=== PATIENT | male | born 1960 | race Caucasian/White ===

== ENCOUNTER → 2017-03-05 | Outpatient (CLI) | payer BC ==
--- NOTE | 2017-03-05 13:30 | KCIC ---
PQRS Compliance Statement: One or more of the following individualized dose reduction techniques were utilized for this examination: 1. Automated exposure control 2. Adjustment of the mA and/or kV according to patient size 3. Use of iterative reconstruction technique Coronary calcium score CT chest without contrast History: 57-year-old male with hypercholesterolemia and family history of heart disease. Distant history of tobacco use. Technique: With retrospective electrocardiogram gating 2.5 mm thick axial reconstructed noncontrast images of the chest at the level of the coronary arteries was performed. Images were post processed on a [employer] workstation and calcium score calculated using the modified Agatston Janowitz protocol. Findings: Total coronary calcium score is 3.2. This is a very low plaque burden and low cardiovascular disease risk. This is based on the calcium score of 0 of the left main coronary artery, 3.2 of the left anterior descending artery, score of 0 of the left circumflex artery and score of 0 of the right coronary artery. Noncoronary findings demonstrate normal caliber great vessels. Cardiac size normal, no pericardial effusion. Visualized upper abdomen is unremarkable. Incompletely imaged in the posterior left upper lobe there is an irregular opacity, more completely seen on the bobbin collector image. Opacity does not appear solid but measures up to 3.7 cm on the bobbin collector image. IMPRESSION: 1. Patient's total calcium score is 3.2. 2. There is an irregular airspace opacity in the posterior left upper lobe that is incompletely imaged. Recommend further evaluation with diagnostic CT of the chest. Electronically signed by: José Carrillo MD (03/05/2017 1:27 PM) [id number]
--- NOTE | 2017-03-05 15:06 | KCIC ---
Right HAND, VIEWS 3 Indication: Hand pain, swelling, redness, warmth over second MCP and distal second metacarpal. Findings: There is no acute fracture or dislocation. There is no bony erosion. Mild joint space narrowing third MCP. Radiocarpal joint space narrowing. Small osteophytes of the second and third metacarpal heads. Marginal osteophytes of the second DIP. There is a dorsal bony excrescence that is well-corticated at the level of the third metacarpal head. Finding measures about 5 mm AP by 19 mm in length. Overlying this there is mild soft tissue swelling. Mineralization is normal. Mild soft tissue swelling of the second finger. IMPRESSION: 1. No acute fracture. 2. Well-corticated bony excrescence dorsal to the third metacarpal head. Mild overlying soft tissue swelling. 3. Mild soft tissue swelling of the second finger. Electronically signed by: José Carrillo MD (03/05/2017 3:02 PM) [id number]
== END | disposition home or self-care (01) ==
LOC: KCIC CT 10:09
PROVIDERS: ATTEND Family Medicine
DX: E78.00 Pure hypercholesterolemia, unspecified (principal); Z82.49 Family history of ischemic heart disease and other diseases of the circulatory system; Z87.891 Personal history of nicotine dependence
CPT/HCPCS: 73130; 75571

== ENCOUNTER 2017-12-01 16:55 | Inpatient (IN) | payer BC ==
[~2017-12-01] VITALS: Ht 185.4 cm; Wt 127.2 kg
[2017-12-01] VITALS (7 sets, daily range): BP systolic 93–123; BP diastolic 46–56
[2017-12-01] MEDS ORDERED: ASPIRIN 325 MG TABLET PO ONE (17:15)
--- NOTE | 2017-12-01 17:23 | PHYS DOC ---
Adult General Chief Complaint Chief Complaint: CHEST PAIN HPI HPI Patient is a 57 year old with a history of hypertension presents to the ED complaining of shortness of breath 1 week. Patient states he felt short of breath over the last week. Patient does not smoke cigarettes. States that he developed chest pain about 2 days ago. Describes it as uncomfortable. Rates the pain as 5 out of 10. States he had a history of a blood clot 6 or 9 years ago. Patient is short of breath with exertion. Denies fever, lower leg swelling, calf pain, abdominal pain, nausea/vomiting, fever, weakness, dizziness or seizure.. Review of Systems Review of Systems Constitutional: Denies fever or chills [] Eyes: Denies change in visual acuity, redness, or eye pain [] HENT: Denies nasal congestion or sore throat [] Respiratory: Complains of shortness of breath. Denies cough. Cardiovascular: No additional information not addressed in HPI [] GI: Denies abdominal pain, nausea, vomiting, bloody stools or diarrhea [] : Denies dysuria or hematuria [] Musculoskeletal: Denies back pain or joint pain [] Integument: Denies rash or skin lesions [] Neurologic: Denies headache, focal weakness or sensory changes [] All other systems were reviewed and found to be within normal limits, except as documented in this note. Current Medications Current Medications Current Medications Medications (Trade) Dose Ordered Sig/Frankie Start Time Stop Time Status Last Admin Dose Admin Albuterol/ Ipratropium (Duoneb) 3 ml 1X ONCE 12/01/17 18:45 12/01/17 18:49 DC Aspirin (Geoffrey Aspirin) 325 mg 1X ONCE 12/01/17 17:15 12/01/17 17:35 DC 12/01/17 18:50 325 MG Info (CONTRAST GIVEN -- Rx MONITORING) 1 each PRN DAILY PRN 12/01/17 17:45 12/03/17 17:44 DC Iohexol (Omnipaque 300 Mg/ml) 75 ml 1X ONCE 12/01/17 17:45 12/01/17 17:46 DC 12/01/17 18:27 75 ML Sodium Chloride 1,000 ml @ 1,000 mls/hr 1X ONCE 12/01/17 18:30 12/01/17 18:49 DC Allergies Allergies Allergies Coded Allergies Type Severity Reaction Last Updated Verified No Known Drug Allergies 12/01/17 No Physical Exam Physical Exam Constitutional: Well developed, well nourished, no acute distress, non-toxic appearance. [] HENT: Normocephalic, atraumatic, oropharynx moist Eyes: PERRLA, EOMI, conjunctiva normal, no discharge. [] Neck: Normal range of motion, no tenderness, supple, no stridor. [] Cardiovascular: Tachycardic. regular rhythm, no murmur [] Lungs & Thorax: Bilateral breath sounds. Abdomen: Bowel sounds normal, soft, no tenderness, no masses, no pulsatile masses. [] Skin: Warm, dry, no erythema, no rash. [] Back: No tenderness, no CVA tenderness. [] Extremities: No tenderness, no cyanosis, no clubbing, ROM intact, no edema. [] Neurologic: Alert and oriented X 3, normal motor function, normal sensory function, no focal deficits noted. [] Psychologic: Affect normal, judgement normal, mood normal. [] Current Patient Data Vital Signs Vital Signs Date Time Temp Pulse Resp B/P (MAP) Pulse Ox O2 Delivery O2 Flow Rate FiO2 12/01/17 18:15 92 20 107/52 (70) 90 12/01/17 17:45 Room Air 12/01/17 16:55 98.0 98.0 Lab Values Laboratory Tests Test 12/01/17 17:50 White Blood Count 12.4 x10^3/uL (4.0-11.0) H Red Blood Count 4.23 x10^6/uL (4.30-5.70) L Hemoglobin 13.0 g/dL (13.0-17.5) Hematocrit 38.0 % (39.0-53.0) L Mean Corpuscular Volume 90 fL (79-100) Mean Corpuscular Hemoglobin 31 pg (25-35) Mean Corpuscular Hemoglobin Concent 34 g/dL (31-37) Red Cell Distribution Width 14.7 % (11.5-14.5) H Platelet Count 286 x10^3/uL (140-400) Neutrophils (%) (Auto) 77 % (31-73) H Lymphocytes (%) (Auto) 10 % (24-48) L Monocytes (%) (Auto) 12 % (0-9) H Eosinophils (%) (Auto) 0 % (0-3) Basophils (%) (Auto) 1 % (0-3) Neutrophils # (Auto) 9.6 x10^3uL (1.8-7.7) H Lymphocytes # (Auto) 1.3 x10^3/uL (1.0-4.8) Monocytes # (Auto) 1.4 x10^3/uL (0.0-1.1) H Eosinophils # (Auto) 0.0 x10^3/uL (0.0-0.7) Basophils # (Auto) 0.1 x10^3/uL (0.0-0.2) Prothrombin Time 15.7 SEC (11.7-14.0) H Prothrombin Time INR 1.3 (0.8-1.1) H Sodium Level 131 mmol/L (136-145) L Potassium Level 4.2 mmol/L (3.5-5.1) Chloride Level 95 mmol/L (98-107) L Carbon Dioxide Level 27 mmol/L (21-32) Anion Gap 9 (6-14) Blood Urea Nitrogen 24 mg/dL (8-26) Creatinine 1.4 mg/dL (0.7-1.3) H Estimated GFR (Cockcroft-Gault) 52.2 BUN/Creatinine Ratio 17 (6-20) Glucose Level 109 mg/dL (70-99) H Calcium Level 8.8 mg/dL (8.5-10.1) Magnesium Level 2.1 mg/dL (1.8-2.4) Total Bilirubin 2.2 mg/dL (0.2-1.0) H Aspartate Amino Transferase (AST) 39 U/L (15-37) H Alanine Aminotransferase (ALT) 53 U/L (16-63) Alkaline Phosphatase 113 U/L (46-116) Creatine Kinase 22 U/L (39-308) L Troponin I Quantitative < 0.017 ng/mL (0.000-0.055) BO-Owf-S-Type Natriuretic Peptide 2728 pg/mL (0-124) H Total Protein 6.7 g/dL (6.4-8.2) Albumin 2.6 g/dL (3.4-5.0) L Albumin/Globulin Ratio 0.6 (1.0-1.7) L Lipase 91 U/L (73-393) Thyroid Stimulating Hormone (TSH) 2.197 uIU/mL (0.358-3.74) Laboratory Tests 12/01/17 17:50 Laboratory Tests 12/01/17 17:50 EKG EKG EKG shows Sinus tachycardia at 105 BPM. No STEMI. [] Radiology/Procedures Radiology/Procedures [] Course & Med Decision Making Course & Med Decision Making Pertinent Labs and Imaging studies reviewed. (See chart for details) Lovenox ordered. Patient has no pain on re-evaluation. Discussed case with Dr. Zhong (garbage person) whom will see patient. []Discussed case with, hospitalist, Dr. champagne. Agrees to admission and further management patient. Patient admitted to the ICU. Patient stable for admission. Dragon Disclaimer Dragon Disclaimer This electronic medical record was generated, in whole or in part, using a voice recognition dictation system. Departure Departure Impression: Primary Impression: Pulmonary embolism Additional Impressions: Pulmonary infarct Cavitary lung disease Disposition: ADMITTED INPATIENT Admitting Physician: Dionna Champagne Condition: STABLE Referrals: NO PCP (PCP) Problem Qualifiers RENATO GRIFFITH Dec 01, 2017 17:23
[2017-12-01] MEDS ORDERED: CONTRAST GIVEN. MC PRN (17:45)
[2017-12-01] MEDS ORDERED: IOHEXOL 300 MG/ML 100ML VIAL. IV ONE (17:45)
[2017-12-01 18:00] LABS: BASO # 0.1 x10^3/uL (0.0-0.2); BASO % 1 % (0-3); EOS % 0 % (0-3); LYMPH # 1.3 x10^3/uL (1.0-4.8); LYMPH % 10 % (24-48); MEAN CORPUSCULAR HEMOGLOBIN 31 pg (25-35); MEAN CORPUSCULAR HGB CONC 34 g/dL (31-37); MEAN CORPUSCULAR VOLUME 90 fL (79-100); MONO # 1.4 x10^3/uL (0.0-1.1); MONO % 12 % (0-9); NEUT # 9.6 x10^3uL (1.8-7.7); NEUT % 77 % (31-73); PLATELET COUNT 286 x10^3/uL (140-400); RED BLOOD COUNT 4.23 x10^6/uL (4.30-5.70); RED CELL DISTRIBUTION WIDTH 14.7 % (11.5-14.5); WHITE BLOOD COUNT 12.4 x10^3/uL (4.0-11.0)
[2017-12-01 18:09] LABS: PROTHROMBIN TIME PATIENT 15.7 SEC (11.7-14.0)
[2017-12-01 18:17] LABS: CALCIUM 8.8 mg/dL (8.5-10.1); CREATININE 1.4 mg/dL (0.7-1.3); GFR 52.2; POTASSIUM 4.2 mmol/L (3.5-5.1)
[2017-12-01 18:20] LABS: ALBUMIN 2.6 g/dL (3.4-5.0); ALBUMIN/GLOBULIN RATIO 0.6 (1.0-1.7); MAGNESIUM 2.1 mg/dL (1.8-2.4); TOTAL BILIRUBIN 2.2 mg/dL (0.2-1.0); TOTAL PROTEIN 6.7 g/dL (6.4-8.2)
--- NOTE | 2017-12-01 18:23 | RAD ---
AP chest. HISTORY: Chest pain short of breath AP view was taken of the chest. There is a left upper lobe infiltrate possibly an acute pneumonia. There is mild pleural thickening on the right. Heart is normal in size without heart failure. There is mild elevation of the right diaphragm. IMPRESSION: 1. Left upper lobe infiltrate possible pneumonia. Follow-up PA and lateral would be of benefit. Electronically signed by: Phil Copeland MD (12/01/2017 6:19 PM) [facility]
[2017-12-01] MEDS ORDERED: IV NORMAL SALINE 1000ML BAG 1,000 ML IV ONE (18:30)
[2017-12-01] MEDS ORDERED: IPRATRPIUM/ALBUTEROL 0.5/2.5MG 3 ML NEBU. NEB ONE (18:45)
--- NOTE | 2017-12-01 18:49 | RAD ---
CT arteriogram of the chest. HISTORY: Chest pain short of breath CT arteriogram was done using 60 mL Omnipaque 300 contrast. Sagittal and coronal MIP images were reconstructed. Thyroid is homogeneous. There is no mediastinal adenopathy. There are large bilateral pulmonary emboli more on the right than on the left, on the right the embolus fills the distal right main pulmonary artery and extending into the upper and lower lobes. On the left there are smaller emboli in both upper and lower lobes. There is a small right pleural effusion. There are infiltrates in the right lower lobe which could be developing infarct or hemorrhage. There is a irregular cavitary lesion in the left lung. At the inferior margin of the cavity is an infiltrate or potentially a mass, pneumonia is possible, lung cancer is possible, atypical infectious diseases such as fungal diseases or TB can have this pattern. There is an old clavicle fracture on the right. A liver lesion is not identified. Adrenal glands and pancreas are normal. IMPRESSION: 1. Bilateral large pulmonary emboli. 2. Small right effusion. 3. Right lower lobe infiltrate possibly developing pulmonary infarct. 4. Cavitary lesion in the left lung with a mass at the inferior margin of the cavity, infectious etiology such as TB or fungal diseases are possible, cancer is possible. The emergency room PA was called and notified of findings at 6:45 PM PQRS Compliance Statement: One or more of the following individualized dose reduction techniques were utilized for this examination: 1. Automated exposure control 2. Adjustment of the mA and/or kV according to patient size 3. Use of iterative reconstruction technique FOR INTERNAL CODING PURPOSES Critical result: RESULT CODE: (C) Electronically signed by: Phil Copeland MD (12/01/2017 6:46 PM) [facility]
[2017-12-01] MEDS ORDERED: ONDANSETRON PF 4 MG/2 ML VIAL. IV PRN (19:00)
[2017-12-01] MEDS ORDERED: fentaNYL PF VIAL 100 MCG/2 ML VIAL IV PRN (19:00)
[2017-12-01] MEDS ORDERED: ACETAMINOPHEN 325 MG TABLET. PO PRN (19:00)
--- NOTE | 2017-12-01 19:19 | EKG ---
[facility] [address] [place] [address] Test Date: 2017-12-01 Test Time: 16:57:18 Pat Name: RASHID MCMAHAN Department: Room: Gender: M Domestic Violence Advocate: DOMITILA : 1960 Requested By: RENATO GRIFFITH Order Number: [id number] Reading MD: Atif López MD Measurements Intervals Petal Rate: 105 P: 49 WY: 156 QRS: -84 QRSD: 120 T: 36 QT: 338 QTc: 451 Interpretive Statements SINUS TACHYCARDIA RBBB LAFB Electronically Signed On 12-10-2017 11:22:21 CDT by Atif López MD
[2017-12-01] MEDS ORDERED: ALLO100T PO (20:25)
[2017-12-01] MEDS ORDERED: AMLO10TA2 PO (20:26)
[2017-12-01] MEDS ORDERED: LISI1TAB5 PO (20:26)
--- NOTE | 2017-12-01 22:27 | PDOC1 ---
History and Physical Date of Admission Date of Admission DATE: 12/01/17 TIME: 22:25 Identification/Chief Complaint Chief Complaint short of breath Source Source: Chart review, Patient History of Present Illness History of Present Illness Mr. Gavin, is a 57 year old admit with days of worsening dyspnea with chest pain, Pain on the right side, and worse if he lays on his right side. pain 5.10 he discussed shortness of breath, alternating sleeping in a chair or on the couch and could not get comfortable for days. was first short of breath one week ago. States that he developed chest pain about 2 days ago. Describes it as uncomfortable Noted history of blood clot 6 years ago. Past Medical History Cardiovascular: HTN Social History Smoke: Quit (12 years ago) ALCOHOL: none Drugs: None Current Problem List Problem List Problems Medical Problems: (1) Cavitary lung disease Status: Acute (2) Pulmonary embolism Status: Acute (3) Pulmonary infarct Status: Acute Current Medications Current Medications Current Medications Aspirin (Geoffrey Aspirin) 325 mg 1X ONCE PO Last administered on 12/01/17at 18:50 ; Start 12/01/17 at 17:15; Stop 12/01/17 at 17:35; Status DC Iohexol (Omnipaque 300 Mg/ml) 75 ml 1X ONCE IV Last administered on 12/01/17at 18:27; Start 12/01/17 at 17:45; Stop 12/01/17 at 17:46; Status DC Info (CONTRAST GIVEN -- Rx MONITORING) 1 each PRN DAILY PRN MC SEE COMMENTS; Start 12/01/17 at 17:45; Stop 12/03/17 at 17:44 Sodium Chloride 1,000 ml @ 1,000 mls/hr 1X ONCE IV ; Start 12/01/17 at 18:30; Stop 12/01/17 at 18:49; Status DC Albuterol/ Ipratropium (Duoneb) 3 ml 1X ONCE NEB ; Start 12/01/17 at 18:45; Stop 12/01/17 at 18:49; Status DC Enoxaparin Sodium (Lovenox 120mg Syringe) 120 mg 1X ONCE SQ Last administered on 12/01/17at 19:19; Start 12/01/17 at 19:00; Stop 12/01/17 at 19:01; Status DC Ondansetron HCl (Zofran) 4 mg PRN Q8HRS PRN IV NAUSEA/VOMITING; Start 12/01/17 at 19:00; Stop 12/02/17 at 18:59 Fentanyl Citrate (Fentanyl 2ml Vial) 50 mcg PRN Q1HR PRN IV PAIN; Start at 19:00; Stop 12/02/17 at 18:59 Acetaminophen (Tylenol) 650 mg PRN Q4HRS PRN PO FEVER; Start 12/01/17 at 19:00 ; Stop 12/02/17 at 18:59 Allopurinol (Zyloprim) 100 mg BID PO ; Start 12/02/17 at 09:00; Status UNV Amlodipine Besylate (Norvasc) 10 mg DAILY PO ; Start 12/02/17 at 09:00; Status UNV Non-Formulary Medication (Lisinopril/ Hydrochlorothiazide (Lisinopril-Hctz 20- 12.5 Mg Tab)) 1 tab DAILY PO ; Start 12/02/17 at 09:00; Status UNV Active Scripts Active Reported Amlodipine Besylate 10 Mg Tablet 10 Mg PO DAILY Lisinopril-Hctz 20-12.5 Mg Tab (Lisinopril/Hydrochlorothiazide) 1 Each Tablet 1 Tab PO DAILY Allopurinol 100 Mg Tablet 100 Mg PO BID Allergies Allergies: Coded Allergies: No Known Drug Allergies (Unverified , 12/01/17) ROS General: YES: Fatigue, Appetite; No: Chills, Night Sweats, Malaise PSYCHOLOGICAL ROS: YES: Sleep disturbances; No: Anxiety, Behavioral Disorder, Concentration difficultie, Decreased libido , Depression, Disorientation, Hallucinations, Hostility, Irritablity, Memory difficulties, Mood Swings, Obsessive thoughts, Physical abuse, Sexual abuse, Suicidal ideation, Other Eyes: No Blurry vision, No Decreased vision, No Double vision, No Dry eyes, No Excessive tearing, No Eye Pain, No Itchy Eyes, No Loss of vision, No Photophobia , No Scotomata, No Uses contacts, No Uses glasses, No Other HEENT: No: Heacaches, Visual Changes, Hearing change, Nasal congestion, Nasal discharge, Oral lesions, Sinus pain, Sore Throat, Epistaxis, Sneezing, Snoring, Tinnitus, Vertigo, Vocal changes, Other Respiratory: YES: Cough, Orthopnea, Shortness of breath, SOB with excertion Cardiovascular: yes Chest Pain Gastrointestinal: No Nausea, No Vomiting, No Abdominal Pain, No Diarrhea, No Constipation, No Melena, No Hematochezia, No Other Genitourinary: No Dysuria, No Frequency, No Incontinence, No Hematuria, No Retention, No Discharge, No Urgency, No Pain, No Flank Pain, No Other, No , No , No , No , No , No , No Musculoskeletal: No Gait Disturbance, No Joint Pain, No Joint Stiffness, No Joint Swelling, No Muscle Pain, No Muscular Weakness, No Pain In:, No Swelling In:, No Other Neurological: No Behavorial Changes, No Bowel/Bladder ControlChng, No Confusion , No Dizziness, No Gait Disturbance, No Headaches, No Impaired Coord/balance, No Memory Loss, No Numbness/Tingling, No Seizures, No Speech Problems, No Tremors, No Visual Changes, No Weakness, No Other Skin: Yes Dry Skin; No Eczema, No Hair Changes, No Lumps, No Mole Changes, No Mottling, No Nail Changes, No Pruritus, No Rash, No Skin Lesion Changes, No Other, No Acne Physical Exam General: Alert, Oriented X3, Cooperative HEENT: Atraumatic, PERRLA Lungs: Clear to auscultation Heart: S1S2, RRR Abdomen: Normal bowel sounds, Soft Extremities: No clubbing, No cyanosis Skin: No rashes, No breakdown Neuro: Normal gait, Normal speech, Strength at 5/5 X4 ext Psych/Mental Status: Mental status NL Vitals Vitals Vital Signs Date Time Temp Pulse Resp B/P (MAP) Pulse Ox O2 Delivery O2 Flow Rate FiO2 12/01/17 22:00 90 18 110/49 (69) 94 Nasal Cannula 2.0 12/01/17 21:15 98.6 98.6 Labs Labs Laboratory Tests Test 12/01/17 17:50 12/01/17 19:00 White Blood Count 12.4 x10^3/uL (4.0-11.0) Red Blood Count 4.23 x10^6/uL (4.30-5.70) Hemoglobin 13.0 g/dL (13.0-17.5) Hematocrit 38.0 % (39.0-53.0) Mean Corpuscular Volume 90 fL (79-100) Mean Corpuscular Hemoglobin 31 pg (25-35) Mean Corpuscular Hemoglobin Concent 34 g/dL (31-37) Red Cell Distribution Width 14.7 % (11.5-14.5) Platelet Count 286 x10^3/uL (140-400) Neutrophils (%) (Auto) 77 % (31-73) Lymphocytes (%) (Auto) 10 % (24-48) Monocytes (%) (Auto) 12 % (0-9) Eosinophils (%) (Auto) 0 % (0-3) Basophils (%) (Auto) 1 % (0-3) Neutrophils # (Auto) 9.6 x10^3uL (1.8-7.7) Lymphocytes # (Auto) 1.3 x10^3/uL (1.0-4.8) Monocytes # (Auto) 1.4 x10^3/uL (0.0-1.1) Eosinophils # (Auto) 0.0 x10^3/uL (0.0-0.7) Basophils # (Auto) 0.1 x10^3/uL (0.0-0.2) Prothrombin Time 15.7 SEC (11.7-14.0) Prothromb Time International Ratio 1.3 (0.8-1.1) Sodium Level 131 mmol/L (136-145) Potassium Level 4.2 mmol/L (3.5-5.1) Chloride Level 95 mmol/L (98-107) Carbon Dioxide Level 27 mmol/L (21-32) Anion Gap 9 (6-14) Blood Urea Nitrogen 24 mg/dL (8-26) Creatinine 1.4 mg/dL (0.7-1.3) Estimated GFR (Cockcroft-Gault) 52.2 BUN/Creatinine Ratio 17 (6-20) Glucose Level 109 mg/dL (70-99) Calcium Level 8.8 mg/dL (8.5-10.1) Magnesium Level 2.1 mg/dL (1.8-2.4) Total Bilirubin 2.2 mg/dL (0.2-1.0) Aspartate Amino Transf (AST/SGOT) 39 U/L (15-37) Alanine Aminotransferase (ALT/SGPT) 53 U/L (16-63) Alkaline Phosphatase 113 U/L (46-116) Creatine Kinase 22 U/L (39-308) Troponin I Quantitative < 0.017 ng/mL (0.000-0.055) FM-Sym-K-Type Natriuretic Peptide 2728 pg/mL (0-124) Total Protein 6.7 g/dL (6.4-8.2) Albumin 2.6 g/dL (3.4-5.0) Albumin/Globulin Ratio 0.6 (1.0-1.7) Lipase 91 U/L (73-393) Thyroid Stimulating Hormone (TSH) 2.197 uIU/mL (0.358-3.74) Lactic Acid Level 1.5 mmol/L (0.4-2.0) Laboratory Tests Test 12/01/17 17:50 12/01/17 19:00 White Blood Count 12.4 x10^3/uL (4.0-11.0) Red Blood Count 4.23 x10^6/uL (4.30-5.70) Hemoglobin 13.0 g/dL (13.0-17.5) Hematocrit 38.0 % (39.0-53.0) Mean Corpuscular Volume 90 fL (79-100) Mean Corpuscular Hemoglobin 31 pg (25-35) Mean Corpuscular Hemoglobin Concent 34 g/dL (31-37) Red Cell Distribution Width 14.7 % (11.5-14.5) Platelet Count 286 x10^3/uL (140-400) Neutrophils (%) (Auto) 77 % (31-73) Lymphocytes (%) (Auto) 10 % (24-48) Monocytes (%) (Auto) 12 % (0-9) Eosinophils (%) (Auto) 0 % (0-3) Basophils (%) (Auto) 1 % (0-3) Neutrophils # (Auto) 9.6 x10^3uL (1.8-7.7) Lymphocytes # (Auto) 1.3 x10^3/uL (1.0-4.8) Monocytes # (Auto) 1.4 x10^3/uL (0.0-1.1) Eosinophils # (Auto) 0.0 x10^3/uL (0.0-0.7) Basophils # (Auto) 0.1 x10^3/uL (0.0-0.2) Prothrombin Time 15.7 SEC (11.7-14.0) Prothromb Time International Ratio 1.3 (0.8-1.1) Sodium Level 131 mmol/L (136-145) Potassium Level 4.2 mmol/L (3.5-5.1) Chloride Level 95 mmol/L (98-107) Carbon Dioxide Level 27 mmol/L (21-32) Anion Gap 9 (6-14) Blood Urea Nitrogen 24 mg/dL (8-26) Creatinine 1.4 mg/dL (0.7-1.3) Estimated GFR (Cockcroft-Gault) 52.2 BUN/Creatinine Ratio 17 (6-20) Glucose Level 109 mg/dL (70-99) Calcium Level 8.8 mg/dL (8.5-10.1) Magnesium Level 2.1 mg/dL (1.8-2.4) Total Bilirubin 2.2 mg/dL (0.2-1.0) Aspartate Amino Transf (AST/SGOT) 39 U/L (15-37) Alanine Aminotransferase (ALT/SGPT) 53 U/L (16-63) Alkaline Phosphatase 113 U/L (46-116) Creatine Kinase 22 U/L (39-308) Troponin I Quantitative < 0.017 ng/mL (0.000-0.055) HS-Pip-K-Type Natriuretic Peptide 2728 pg/mL (0-124) Total Protein 6.7 g/dL (6.4-8.2) Albumin 2.6 g/dL (3.4-5.0) Albumin/Globulin Ratio 0.6 (1.0-1.7) Lipase 91 U/L (73-393) Thyroid Stimulating Hormone (TSH) 2.197 uIU/mL (0.358-3.74) Lactic Acid Level 1.5 mmol/L (0.4-2.0) VTE Prophylaxis Ordered VTE Prophylaxis Devices: Yes VTE Pharmacological Prophylaxi: No Assessment/Plan Assessment/Plan acute hypoxic respiratory failure bilateral large pulmonary embolism Pneumonia, possible cavitary lesion, isolate and r/o TB admit LAURA CHEEK MD Dec 01, 2017 22:27
[2017-12-02] VITALS (23 sets, daily range): BP systolic 84–143; BP diastolic 44–86
[2017-12-02 05:45] LABS: BASO # 0.1 x10^3/uL (0.0-0.2); BASO % 1 % (0-3); EOS % 0 % (0-3); HEMATOCRIT 36.9 % (39.0-53.0); HEMOGLOBIN 12.3 g/dL (13.0-17.5); LYMPH % 8 % (24-48); MEAN CORPUSCULAR HEMOGLOBIN 30 pg (25-35); MEAN CORPUSCULAR HGB CONC 33 g/dL (31-37); MEAN CORPUSCULAR VOLUME 91 fL (79-100); MONO # 1.5 x10^3/uL (0.0-1.1); MONO % 12 % (0-9); NEUT # 9.3 x10^3uL (1.8-7.7); NEUT % 78 % (31-73); PLATELET COUNT 287 x10^3/uL (140-400); RED BLOOD COUNT 4.06 x10^6/uL (4.30-5.70); RED CELL DISTRIBUTION WIDTH 14.2 % (11.5-14.5)
[2017-12-02 05:53] LABS: PROTHROMBIN TIME PATIENT 16.3 SEC (11.7-14.0)
[2017-12-02 06:02] LABS: ALBUMIN 2.5 g/dL (3.4-5.0); ALBUMIN/GLOBULIN RATIO 0.6 (1.0-1.7); CALCIUM 8.6 mg/dL (8.5-10.1); CREATININE 1.3 mg/dL (0.7-1.3); GFR 56.9; POTASSIUM 4.4 mmol/L (3.5-5.1); TOTAL BILIRUBIN 2.5 mg/dL (0.2-1.0); TOTAL PROTEIN 6.8 g/dL (6.4-8.2)
[2017-12-02] MEDS ORDERED: VANCOMYCIN PER PHARMACY MC PRN (06:45)
--- NOTE | 2017-12-02 06:50 | PDOC ---
Provider Note Provider Note [id number] acute resp fail acute pe cavitary lesion prob nico, copd see orders BRIDGETTE URIARTE MD Dec 02, 2017 06:50
--- NOTE | 2017-12-02 07:28 | PDOC ---
Infectious Disease Note Vital Sign Vital Signs Vital Signs Date Time Temp Pulse Resp B/P (MAP) Pulse Ox O2 Delivery O2 Flow Rate FiO2 12/02/17 06:00 82 18 121/58 (79) 95 Nasal Cannula 2.0 12/02/17 04:00 98.5 98.5 Labs Lab Laboratory Tests Test 12/01/17 17:50 12/01/17 19:00 12/02/17 00:45 12/02/17 05:00 White Blood Count 12.4 x10^3/uL (4.0-11.0) 12.0 x10^3/uL (4.0-11.0) Red Blood Count 4.23 x10^6/uL (4.30-5.70) 4.06 x10^6/uL (4.30-5.70) Hemoglobin 13.0 g/dL (13.0-17.5) 12.3 g/dL (13.0-17.5) Hematocrit 38.0 % (39.0-53.0) 36.9 % (39.0-53.0) Mean Corpuscular Volume 90 fL (79-100) 91 fL (79-100) Mean Corpuscular Hemoglobin 31 pg (25-35) 30 pg (25-35) Mean Corpuscular Hemoglobin Concent 34 g/dL (31-37) 33 g/dL (31-37) Red Cell Distribution Width 14.7 % (11.5-14.5) 14.2 % (11.5-14.5) Platelet Count 286 x10^3/uL (140-400) 287 x10^3/uL (140-400) Neutrophils (%) (Auto) 77 % (31-73) 78 % (31-73) Lymphocytes (%) (Auto) 10 % (24-48) 8 % (24-48) Monocytes (%) (Auto) 12 % (0-9) 12 % (0-9) Eosinophils (%) (Auto) 0 % (0-3) 0 % (0-3) Basophils (%) (Auto) 1 % (0-3) 1 % (0-3) Neutrophils # (Auto) 9.6 x10^3uL (1.8-7.7) 9.3 x10^3uL (1.8-7.7) Lymphocytes # (Auto) 1.3 x10^3/uL (1.0-4.8) 1.0 x10^3/uL (1.0-4.8) Monocytes # (Auto) 1.4 x10^3/uL (0.0-1.1) 1.5 x10^3/uL (0.0-1.1) Eosinophils # (Auto) 0.0 x10^3/uL (0.0-0.7) 0.0 x10^3/uL (0.0-0.7) Basophils # (Auto) 0.1 x10^3/uL (0.0-0.2) 0.1 x10^3/uL (0.0-0.2) Prothrombin Time 15.7 SEC (11.7-14.0) 16.3 SEC (11.7-14.0) Prothromb Time International Ratio 1.3 (0.8-1.1) 1.4 (0.8-1.1) Sodium Level 131 mmol/L (136-145) 131 mmol/L (136-145) Potassium Level 4.2 mmol/L (3.5-5.1) 4.4 mmol/L (3.5-5.1) Chloride Level 95 mmol/L (98-107) 97 mmol/L (98-107) Carbon Dioxide Level 27 mmol/L (21-32) 29 mmol/L (21-32) Anion Gap 9 (6-14) 5 (6-14) Blood Urea Nitrogen 24 mg/dL (8-26) 24 mg/dL (8-26) Creatinine 1.4 mg/dL (0.7-1.3) 1.3 mg/dL (0.7-1.3) Estimated GFR (Cockcroft-Gault) 52.2 56.9 BUN/Creatinine Ratio 17 (6-20) 18 (6-20) Glucose Level 109 mg/dL (70-99) 109 mg/dL (70-99) Calcium Level 8.8 mg/dL (8.5-10.1) 8.6 mg/dL (8.5-10.1) Magnesium Level 2.1 mg/dL (1.8-2.4) Total Bilirubin 2.2 mg/dL (0.2-1.0) 2.5 mg/dL (0.2-1.0) Aspartate Amino Transf (AST/SGOT) 39 U/L (15-37) 32 U/L (15-37) Alanine Aminotransferase (ALT/SGPT) 53 U/L (16-63) 54 U/L (16-63) Alkaline Phosphatase 113 U/L (46-116) 112 U/L (46-116) Creatine Kinase 22 U/L (39-308) Troponin I Quantitative < 0.017 ng/mL (0.000-0.055) < 0.017 ng/mL (0.000-0.055) QY-Kzy-K-Type Natriuretic Peptide 2728 pg/mL (0-124) Total Protein 6.7 g/dL (6.4-8.2) 6.8 g/dL (6.4-8.2) Albumin 2.6 g/dL (3.4-5.0) 2.5 g/dL (3.4-5.0) Albumin/Globulin Ratio 0.6 (1.0-1.7) 0.6 (1.0-1.7) Lipase 91 U/L (73-393) Thyroid Stimulating Hormone (TSH) 2.197 uIU/mL (0.358-3.74) Lactic Acid Level 1.5 mmol/L (0.4-2.0) Objective Assessment Dictated Plan Plan of Care Dictated but computer froze before it could be saved # [id number] DAYANA HOFFMAN MD Dec 02, 2017 07:28
[2017-12-02] MEDS: PANTOPRAZOLE 40 MG TABLET.DR. PO SCH (07:29)
[2017-12-02] MEDS: PIPERACILLIN/TAZOBACTAM 3.375 GM in IV NORMAL SALINE 50ML 50 ML IV SCH ×3 (07:31→17:40)
[2017-12-02] MEDS ORDERED: VANCOMYCIN 2 GM in IV NORMAL SALINE 500ML BAG 500 ML IV ONE (08:00)
--- NOTE | 2017-12-02 08:37 | CONS ---
DATE OF CONSULTATION: 12/02/2017 I was asked to see this 57-year-old gentleman for acute respiratory failure, acute pulmonary embolism. HISTORY OF PRESENT ILLNESS: He does have history of [id number] smoking, stopped smoking 14 years ago. He has not been diagnosed with COPD, but has had daily cough. For the past week, he has had increased shortness of breath. He has had chest pain for the past 2-3 days. He presented to the Emergency Room and had a CT angiogram, which did show bilateral pulmonary embolism. He is on oxygen. Lovenox was given, his shortness of breath and chest pain have improved. His blood pressure has been stable. He does have cough slightly worse than before. He denies hemoptysis, night sweats, fever or chills. He has had nasal congestion. He snores and has excessive daytime sleepiness, has not had a sleep study. PAST MEDICAL HISTORY: Hypertension, PVCs. History of left lower extremity DVT 9 years ago, it was non-provoked, he had anticoagulation for 10 months. ALLERGIES: No known drug allergies. MEDICATIONS: The patient was given a dose of Lovenox in the Emergency Room, hydrochlorothiazide, lisinopril, amlodipine. SOCIAL HISTORY: History of [id number] smoking, stopped smoking 14 years ago. He drinks daily. FAMILY HISTORY: There is no history of pulmonary embolism. REVIEW OF SYSTEMS: As mentioned above, other systems otherwise negative.. PHYSICAL EXAMINATION: GENERAL: This is an overweight gentleman. VITAL SIGNS: His O2 saturation on 2 liters of oxygen 95%, respiratory rate 18, heart rate 82, blood pressure 121/58, temperature 98.5. HEENT: Normocephalic, atraumatic. Pupils equal, round, reactive to light. Nose is clear. Throat, there is shallow oropharynx. NECK: There is no thyromegaly or lymphadenopathy. CARDIOVASCULAR: Regular rate and rhythm. PMI is nondisplaced. CHEST: Inspection is normal. LUNGS: There are bibasilar crackles, had dullness at the right base. ABDOMEN: Soft and obese. Bowel sounds are good. EXTREMITIES: There is no edema. LYMPHATICS: There is no lymphadenopathy. NEUROLOGIC: Alert and oriented. SKIN: Warm. LABORATORY DATA: I reviewed the following lab data: CT angiogram did show bilateral pulmonary embolism, small right effusion and right lower lobe infiltrate? infarct, cavitary lesion in left lung with a mass at the inferior margin of the cavitation. WBC 12, hemoglobin 12.3, platelet 287. Sodium 131, potassium 4.4, chloride 97, CO2 29, glucose 109, BUN 24, creatinine 1.3. Troponin less than 0.01. BNP 2728. Lactic acid 1.5. IMPRESSION: 1. Acute hypoxemic respiratory failure secondary to acute pulmonary embolism versus others. 2. Acute pulmonary embolism. 3. Abnormal CT of the chest with a cavitary lesion. Differential diagnosis including malignancy versus inflammatory versus infectious (tuberculosis versus fungal) versus others. 4. Ex-smoker, probable chronic obstructive pulmonary disease. 5. Snoring and excessive daytime sleepiness, probable obstructive sleep apnea-hypopnea syndrome. 6. Hypertension. 7. Hyponatremia. 8. History of left lower extremity deep venous thrombosis, unprovoked. PLAN AND RECOMMENDATIONS: 1. Titrate FiO2 to keep O2 saturation 92%. 2. Continue Lovenox 1 mg/kg subq. 3. Protonix for stress ulcer prophylaxis. 4. Titrate FiO2 to keep O2 saturation 92%. 5. Echocardiogram. 6. Bilateral lower extremity venous Doppler. 7. At some point, he would require a bronchoscopy, but he has acute pulmonary embolism. We need to treat that at this time. 8. Monitor respiratory status very closely. 9. I have discussed obstructive sleep apnea-hypopnea syndrome, the importance of diagnosis; if untreated, increased cardiovascular and [employer] morbidity or mortality. I do recommend a sleep study as an outpatient. 10. ID is consulted. I also recommend QuantiFERON Gold and fungal serology, sputum for AFB smear and culture. Thank you very much for allowing me to participate in care of this very nice gentleman. The findings and recommendations were discussed with RN and the patient. I have answered all of the patient's questions. He understood and agreed to proceed with the plan. BRIDGETTE URIARTE M.D. : TATIANA/caridad JOB#: [id number] / [id number]
[2017-12-02] MEDS: IPRATRPIUM/ALBUTEROL 0.5/2.5MG 3 ML NEBU. NEB SCH ×4 (08:52→19:56)
[2017-12-02] MEDS ORDERED: NON FORMULARY ITEM (Lisinopril/Hydrochlorothiazide (Lisinopril-Hctz 20-12.5 Mg Tab) 1 TAB) PO SCH (09:00)
[2017-12-02] MEDS: hydroCHLOROthiazide 12.5 MG CAPSULE PO SCH (09:13)
[2017-12-02] MEDS: DOXYCYCLINE HYCLATE 100 MG TABLET PO SCH ×2 (09:13→20:54)
[2017-12-02] MEDS: LISINOPRIL 20 MG TABLET PO SCH (09:14)
[2017-12-02] MEDS ORDERED: MORPHINE SULFATE 2 MG/ML VIAL. IV PRN (09:15)
[2017-12-02] MEDS: ALLOPURINOL 100 MG TABLET. PO SCH ×2 (09:15→20:54)
[2017-12-02] MEDS ORDERED: hydrALAZINE 20 MG/ML VIAL. IVP PRN (09:15)
[2017-12-02] MEDS: amLODIPine BESYLATE 10 MG TABLET PO SCH (09:15)
[2017-12-02] MEDS ORDERED: DOCUSATE SODIUM 100 MG CAPSULE. PO PRN (09:15)
[2017-12-02] MEDS ORDERED: ONDANSETRON PF 4 MG/2 ML VIAL. IV PRN (09:15)
[2017-12-02] MEDS ORDERED: ACETAMINOPHEN 325 MG TABLET. PO PRN (09:15)
[2017-12-02] MEDS ORDERED: traMADol 50 MG TABLET PO PRN (09:15)
[2017-12-02] MEDS: ANTI-COAG MONITOR BY PHARMACY. MC PRN ×2 (10:59→11:04)
--- NOTE | 2017-12-02 11:53 | RAD ---
Bilateral lower extremity venous ultrasound, 12/02/2017: History: Pulmonary emboli, old right leg DVT Duplex evaluation of the deep veins in the lower extremities was performed including grayscale, color-flow and spectral Doppler analysis. The right common femoral vein and superficial vein are widely patent. There is mural thickening in the right popliteal vein compatible with nonocclusive thrombus. There is a history of previous DVT in this region and this may be chronic. The visualized right calf veins are unremarkable. On the left, the common femoral and superficial femoral veins are widely patent. There is occlusive thrombus in the left popliteal vein. Nonocclusive thrombus is present in a posterior tibial vein in the left calf. IMPRESSION: Bilateral deep vein thrombi as described above, most prominent in the left popliteal vein where the thrombus is occlusive. Electronically signed by: Peter Pearson MD (12/02/2017 11:49 AM) [facility]
--- NOTE | 2017-12-02 13:01 | PDOC ---
PROGRESS NOTES Chief Complaint Chief Complaint acute hypoxic respiratory failure bilateral large pulmonary embolism BL Leg DVT Pneumonia, possible cavitary lesion, isolate and r/o TB mild malnutrition morbid obesity HTN plan: fu with ID, pulm on lovenox bid check Echo pending will get onco consult cont home meds on zosyn ,vanco possible TB isolation ok to transfer out of icu History of Present Illness History of Present Illness fever 101, on NC 2L some sob Vitals Vitals Vital Signs Date Time Temp Pulse Resp B/P (MAP) Pulse Ox O2 Delivery O2 Flow Rate FiO2 12/02/17 12:30 Nasal Cannula 2.0 12/02/17 12:00 101.1 95 18 127/56 (79) 94 101.1 Physical Exam General: Alert, Oriented X3, Cooperative Heart: Regular rate, Normal S1, Normal S2 Lungs: Crackles (some rt crackles) Abdomen: Normal bowel sounds, Soft Extremities: No clubbing, No cyanosis Skin: No rashes, No breakdown Labs LABS Laboratory Tests Test 12/01/17 17:50 12/01/17 19:00 12/02/17 00:45 12/02/17 05:00 White Blood Count 12.4 x10^3/uL (4.0-11.0) 12.0 x10^3/uL (4.0-11.0) Red Blood Count 4.23 x10^6/uL (4.30-5.70) 4.06 x10^6/uL (4.30-5.70) Hemoglobin 13.0 g/dL (13.0-17.5) 12.3 g/dL (13.0-17.5) Hematocrit 38.0 % (39.0-53.0) 36.9 % (39.0-53.0) Mean Corpuscular Volume 90 fL (79-100) 91 fL (79-100) Mean Corpuscular Hemoglobin 31 pg (25-35) 30 pg (25-35) Mean Corpuscular Hemoglobin Concent 34 g/dL (31-37) 33 g/dL (31-37) Red Cell Distribution Width 14.7 % (11.5-14.5) 14.2 % (11.5-14.5) Platelet Count 286 x10^3/uL (140-400) 287 x10^3/uL (140-400) Neutrophils (%) (Auto) 77 % (31-73) 78 % (31-73) Lymphocytes (%) (Auto) 10 % (24-48) 8 % (24-48) Monocytes (%) (Auto) 12 % (0-9) 12 % (0-9) Eosinophils (%) (Auto) 0 % (0-3) 0 % (0-3) Basophils (%) (Auto) 1 % (0-3) 1 % (0-3) Neutrophils # (Auto) 9.6 x10^3uL (1.8-7.7) 9.3 x10^3uL (1.8-7.7) Lymphocytes # (Auto) 1.3 x10^3/uL (1.0-4.8) 1.0 x10^3/uL (1.0-4.8) Monocytes # (Auto) 1.4 x10^3/uL (0.0-1.1) 1.5 x10^3/uL (0.0-1.1) Eosinophils # (Auto) 0.0 x10^3/uL (0.0-0.7) 0.0 x10^3/uL (0.0-0.7) Basophils # (Auto) 0.1 x10^3/uL (0.0-0.2) 0.1 x10^3/uL (0.0-0.2) Prothrombin Time 15.7 SEC (11.7-14.0) 16.3 SEC (11.7-14.0) Prothromb Time International Ratio 1.3 (0.8-1.1) 1.4 (0.8-1.1) Sodium Level 131 mmol/L (136-145) 131 mmol/L (136-145) Potassium Level 4.2 mmol/L (3.5-5.1) 4.4 mmol/L (3.5-5.1) Chloride Level 95 mmol/L (98-107) 97 mmol/L (98-107) Carbon Dioxide Level 27 mmol/L (21-32) 29 mmol/L (21-32) Anion Gap 9 (6-14) 5 (6-14) Blood Urea Nitrogen 24 mg/dL (8-26) 24 mg/dL (8-26) Creatinine 1.4 mg/dL (0.7-1.3) 1.3 mg/dL (0.7-1.3) Estimated GFR (Cockcroft-Gault) 52.2 56.9 BUN/Creatinine Ratio 17 (6-20) 18 (6-20) Glucose Level 109 mg/dL (70-99) 109 mg/dL (70-99) Calcium Level 8.8 mg/dL (8.5-10.1) 8.6 mg/dL (8.5-10.1) Magnesium Level 2.1 mg/dL (1.8-2.4) Total Bilirubin 2.2 mg/dL (0.2-1.0) 2.5 mg/dL (0.2-1.0) Aspartate Amino Transf (AST/SGOT) 39 U/L (15-37) 32 U/L (15-37) Alanine Aminotransferase (ALT/SGPT) 53 U/L (16-63) 54 U/L (16-63) Alkaline Phosphatase 113 U/L (46-116) 112 U/L (46-116) Creatine Kinase 22 U/L (39-308) Troponin I Quantitative < 0.017 ng/mL (0.000-0.055) < 0.017 ng/mL (0.000-0.055) NB-Wiq-F-Type Natriuretic Peptide 2728 pg/mL (0-124) Total Protein 6.7 g/dL (6.4-8.2) 6.8 g/dL (6.4-8.2) Albumin 2.6 g/dL (3.4-5.0) 2.5 g/dL (3.4-5.0) Albumin/Globulin Ratio 0.6 (1.0-1.7) 0.6 (1.0-1.7) Lipase 91 U/L (73-393) Thyroid Stimulating Hormone (TSH) 2.197 uIU/mL (0.358-3.74) Lactic Acid Level 1.5 mmol/L (0.4-2.0) Assessment and Plan Assessmemt and Plan Problems Medical Problems: (1) Cavitary lung disease Status: Acute (2) Pulmonary embolism Status: Acute (3) Pulmonary infarct Status: Acute Comment Review of Relevant I have reviewed the following items florencio (where applicable) has been applied. Labs Laboratory Tests Test 12/01/17 17:50 12/01/17 19:00 12/02/17 00:45 12/02/17 05:00 White Blood Count 12.4 x10^3/uL (4.0-11.0) 12.0 x10^3/uL (4.0-11.0) Red Blood Count 4.23 x10^6/uL (4.30-5.70) 4.06 x10^6/uL (4.30-5.70) Hemoglobin 13.0 g/dL (13.0-17.5) 12.3 g/dL (13.0-17.5) Hematocrit 38.0 % (39.0-53.0) 36.9 % (39.0-53.0) Mean Corpuscular Volume 90 fL (79-100) 91 fL (79-100) Mean Corpuscular Hemoglobin 31 pg (25-35) 30 pg (25-35) Mean Corpuscular Hemoglobin Concent 34 g/dL (31-37) 33 g/dL (31-37) Red Cell Distribution Width 14.7 % (11.5-14.5) 14.2 % (11.5-14.5) Platelet Count 286 x10^3/uL (140-400) 287 x10^3/uL (140-400) Neutrophils (%) (Auto) 77 % (31-73) 78 % (31-73) Lymphocytes (%) (Auto) 10 % (24-48) 8 % (24-48) Monocytes (%) (Auto) 12 % (0-9) 12 % (0-9) Eosinophils (%) (Auto) 0 % (0-3) 0 % (0-3) Basophils (%) (Auto) 1 % (0-3) 1 % (0-3) Neutrophils # (Auto) 9.6 x10^3uL (1.8-7.7) 9.3 x10^3uL (1.8-7.7) Lymphocytes # (Auto) 1.3 x10^3/uL (1.0-4.8) 1.0 x10^3/uL (1.0-4.8) Monocytes # (Auto) 1.4 x10^3/uL (0.0-1.1) 1.5 x10^3/uL (0.0-1.1) Eosinophils # (Auto) 0.0 x10^3/uL (0.0-0.7) 0.0 x10^3/uL (0.0-0.7) Basophils # (Auto) 0.1 x10^3/uL (0.0-0.2) 0.1 x10^3/uL (0.0-0.2) Prothrombin Time 15.7 SEC (11.7-14.0) 16.3 SEC (11.7-14.0) Prothromb Time International Ratio 1.3 (0.8-1.1) 1.4 (0.8-1.1) Sodium Level 131 mmol/L (136-145) 131 mmol/L (136-145) Potassium Level 4.2 mmol/L (3.5-5.1) 4.4 mmol/L (3.5-5.1) Chloride Level 95 mmol/L (98-107) 97 mmol/L (98-107) Carbon Dioxide Level 27 mmol/L (21-32) 29 mmol/L (21-32) Anion Gap 9 (6-14) 5 (6-14) Blood Urea Nitrogen 24 mg/dL (8-26) 24 mg/dL (8-26) Creatinine 1.4 mg/dL (0.7-1.3) 1.3 mg/dL (0.7-1.3) Estimated GFR (Cockcroft-Gault) 52.2 56.9 BUN/Creatinine Ratio 17 (6-20) 18 (6-20) Glucose Level 109 mg/dL (70-99) 109 mg/dL (70-99) Calcium Level 8.8 mg/dL (8.5-10.1) 8.6 mg/dL (8.5-10.1) Magnesium Level 2.1 mg/dL (1.8-2.4) Total Bilirubin 2.2 mg/dL (0.2-1.0) 2.5 mg/dL (0.2-1.0) Aspartate Amino Transf (AST/SGOT) 39 U/L (15-37) 32 U/L (15-37) Alanine Aminotransferase (ALT/SGPT) 53 U/L (16-63) 54 U/L (16-63) Alkaline Phosphatase 113 U/L (46-116) 112 U/L (46-116) Creatine Kinase 22 U/L (39-308) Troponin I Quantitative < 0.017 ng/mL (0.000-0.055) < 0.017 ng/mL (0.000-0.055) TO-Gtl-N-Type Natriuretic Peptide 2728 pg/mL (0-124) Total Protein 6.7 g/dL (6.4-8.2) 6.8 g/dL (6.4-8.2) Albumin 2.6 g/dL (3.4-5.0) 2.5 g/dL (3.4-5.0) Albumin/Globulin Ratio 0.6 (1.0-1.7) 0.6 (1.0-1.7) Lipase 91 U/L (73-393) Thyroid Stimulating Hormone (TSH) 2.197 uIU/mL (0.358-3.74) Lactic Acid Level 1.5 mmol/L (0.4-2.0) Laboratory Tests Test 12/01/17 17:50 12/01/17 19:00 12/02/17 00:45 12/02/17 05:00 White Blood Count 12.4 x10^3/uL (4.0-11.0) 12.0 x10^3/uL (4.0-11.0) Red Blood Count 4.23 x10^6/uL (4.30-5.70) 4.06 x10^6/uL (4.30-5.70) Hemoglobin 13.0 g/dL (13.0-17.5) 12.3 g/dL (13.0-17.5) Hematocrit 38.0 % (39.0-53.0) 36.9 % (39.0-53.0) Mean Corpuscular Volume 90 fL (79-100) 91 fL (79-100) Mean Corpuscular Hemoglobin 31 pg (25-35) 30 pg (25-35) Mean Corpuscular Hemoglobin Concent 34 g/dL (31-37) 33 g/dL (31-37) Red Cell Distribution Width 14.7 % (11.5-14.5) 14.2 % (11.5-14.5) Platelet Count 286 x10^3/uL (140-400) 287 x10^3/uL (140-400) Neutrophils (%) (Auto) 77 % (31-73) 78 % (31-73) Lymphocytes (%) (Auto) 10 % (24-48) 8 % (24-48) Monocytes (%) (Auto) 12 % (0-9) 12 % (0-9) Eosinophils (%) (Auto) 0 % (0-3) 0 % (0-3) Basophils (%) (Auto) 1 % (0-3) 1 % (0-3) Neutrophils # (Auto) 9.6 x10^3uL (1.8-7.7) 9.3 x10^3uL (1.8-7.7) Lymphocytes # (Auto) 1.3 x10^3/uL (1.0-4.8) 1.0 x10^3/uL (1.0-4.8) Monocytes # (Auto) 1.4 x10^3/uL (0.0-1.1) 1.5 x10^3/uL (0.0-1.1) Eosinophils # (Auto) 0.0 x10^3/uL (0.0-0.7) 0.0 x10^3/uL (0.0-0.7) Basophils # (Auto) 0.1 x10^3/uL (0.0-0.2) 0.1 x10^3/uL (0.0-0.2) Prothrombin Time 15.7 SEC (11.7-14.0) 16.3 SEC (11.7-14.0) Prothromb Time International Ratio 1.3 (0.8-1.1) 1.4 (0.8-1.1) Sodium Level 131 mmol/L (136-145) 131 mmol/L (136-145) Potassium Level 4.2 mmol/L (3.5-5.1) 4.4 mmol/L (3.5-5.1) Chloride Level 95 mmol/L (98-107) 97 mmol/L (98-107) Carbon Dioxide Level 27 mmol/L (21-32) 29 mmol/L (21-32) Anion Gap 9 (6-14) 5 (6-14) Blood Urea Nitrogen 24 mg/dL (8-26) 24 mg/dL (8-26) Creatinine 1.4 mg/dL (0.7-1.3) 1.3 mg/dL (0.7-1.3) Estimated GFR (Cockcroft-Gault) 52.2 56.9 BUN/Creatinine Ratio 17 (6-20) 18 (6-20) Glucose Level 109 mg/dL (70-99) 109 mg/dL (70-99) Calcium Level 8.8 mg/dL (8.5-10.1) 8.6 mg/dL (8.5-10.1) Magnesium Level 2.1 mg/dL (1.8-2.4) Total Bilirubin 2.2 mg/dL (0.2-1.0) 2.5 mg/dL (0.2-1.0) Aspartate Amino Transf (AST/SGOT) 39 U/L (15-37) 32 U/L (15-37) Alanine Aminotransferase (ALT/SGPT) 53 U/L (16-63) 54 U/L (16-63) Alkaline Phosphatase 113 U/L (46-116) 112 U/L (46-116) Creatine Kinase 22 U/L (39-308) Troponin I Quantitative < 0.017 ng/mL (0.000-0.055) < 0.017 ng/mL (0.000-0.055) PG-Ffj-J-Type Natriuretic Peptide 2728 pg/mL (0-124) Total Protein 6.7 g/dL (6.4-8.2) 6.8 g/dL (6.4-8.2) Albumin 2.6 g/dL (3.4-5.0) 2.5 g/dL (3.4-5.0) Albumin/Globulin Ratio 0.6 (1.0-1.7) 0.6 (1.0-1.7) Lipase 91 U/L (73-393) Thyroid Stimulating Hormone (TSH) 2.197 uIU/mL (0.358-3.74) Lactic Acid Level 1.5 mmol/L (0.4-2.0) Medications Current Medications Aspirin (Geoffrey Aspirin) 325 mg 1X ONCE PO Last administered on 12/01/17at 18:50 ; Start 12/01/17 at 17:15; Stop 12/01/17 at 17:35; Status DC Iohexol (Omnipaque 300 Mg/ml) 75 ml 1X ONCE IV Last administered on 12/01/17at 18:27; Start 12/01/17 at 17:45; Stop 12/01/17 at 17:46; Status DC Info (CONTRAST GIVEN -- Rx MONITORING) 1 each PRN DAILY PRN MC SEE COMMENTS; Start 12/01/17 at 17:45; Stop 12/03/17 at 17:44 Sodium Chloride 1,000 ml @ 1,000 mls/hr 1X ONCE IV ; Start 12/01/17 at 18:30; Stop 12/01/17 at 18:49; Status DC Albuterol/ Ipratropium (Duoneb) 3 ml 1X ONCE NEB ; Start 12/01/17 at 18:45; Stop 12/01/17 at 18:49; Status DC Enoxaparin Sodium (Lovenox 120mg Syringe) 120 mg 1X ONCE SQ Last administered on 12/01/17at 19:19; Start 12/01/17 at 19:00; Stop 12/01/17 at 19:01; Status DC Ondansetron HCl (Zofran) 4 mg PRN Q8HRS PRN IV NAUSEA/VOMITING; Start 12/01/17 at 19:00; Stop 12/02/17 at 09:19; Status DC Fentanyl Citrate (Fentanyl 2ml Vial) 50 mcg PRN Q1HR PRN IV PAIN; Start at 19:00; Stop 12/02/17 at 18:59 Acetaminophen (Tylenol) 650 mg PRN Q4HRS PRN PO FEVER; Start 12/01/17 at 19:00 ; Stop 12/02/17 at 09:18; Status DC Allopurinol (Zyloprim) 100 mg BID PO Last administered on 12/02/17at 09:15; Start 12/02/17 at 09:00 Amlodipine Besylate (Norvasc) 10 mg DAILY PO Last administered on 12/02/17at 09: 15; Start 12/02/17 at 09:00 Non-Formulary Medication (Lisinopril/ Hydrochlorothiazide (Lisinopril-Hctz 20- 12.5 Mg Tab)) 1 tab DAILY PO ; Start 12/02/17 at 09:00; Status UNV Lisinopril (Prinivil) 20 mg DAILY PO Last administered on 12/02/17 09:14; Start 12/02/17 at 09:00 Hydrochlorothiazide (Microzide) 12.5 mg DAILY PO Last administered on 09:13; Start 12/02/17 at 09:00 Pantoprazole Sodium (Protonix) 40 mg DAILYAC PO Last administered on 12/02/17 07:29; Start 12/02/17 at 07:30 Enoxaparin Sodium (Lovenox 120mg Syringe) 120 mg Q12H SQ Last administered on 07:30; Start 12/02/17 at 07:00 Albuterol/ Ipratropium (Duoneb) 3 ml RTQID NEB Last administered on 12/02/17 11:52; Start 12/02/17 at 08:00 Vancomycin HCl (Vanco Per Pharmacy) 1 each PRN DAILY PRN MC SEE COMMENTS Last administered on 12/02/17at 10:58; Start 12/02/17 at 06:45 Piperacillin Sod/ Tazobactam Sod 3.375 gm/Sodium Chloride 50 ml @ 100 mls/hr Q6HRS IV Last administered on 12/02/17 12:29; Start 12/02/17 at 07:30 Doxycycline Hyclate (Vibra-Tab) 100 mg BID PO Last administered on 12/02/17 09 :13; Start 12/02/17 at 09:00 Vancomycin HCl 2 gm/Sodium Chloride 500 ml @ 250 mls/hr 1X ONCE IV Last administered on 12/02/17at 09:15; Start 12/02/17 at 08:00; Stop 12/02/17 at 09:59 ; Status DC Acetaminophen (Tylenol) 650 mg PRN Q6HRS PRN PO FEVER; Start 12/02/17 at 09:15 Ondansetron HCl (Zofran) 4 mg PRN Q6HRS PRN IV NAUSEA/VOMITING; Start 12/02/17 at 09:15 Morphine Sulfate (Morphine Sulfate) 2 mg PRN Q2HR PRN IV MODERATE TO SEVERE PAIN; Start 12/02/17 at 09:15 Tramadol HCl (Ultram) 50 mg PRN Q6HRS PRN PO MILD TO MODERATE PAIN; Start 12/02 at 09:15 Hydralazine HCl (Apresoline Inj) 10 mg PRN Q4HRS PRN IVP ELEVATED BP, SEE COMMENTS; Start 12/02/17 at 09:15 Docusate Sodium (Colace) 100 mg PRN DAILY PRN PO CONSTIPATION; Start 12/02/17 at 09:15 Vancomycin HCl 1.75 gm/Sodium Chloride 500 ml @ 250 mls/hr Q12HR IV ; Start 04/09 at 21:00 Vancomycin HCl (Vancomycin Trough Level) 1 each 1X ONCE MC ; Start 12/03/17 at 20:30; Stop 12/03/17 at 20:31 Info (Anti-Coagulation Monitoring By Pharmacy) 1 each PRN DAILY PRN MC SEE COMMENTS Last administered on 12/02/17at 11:04; Start 12/02/17 at 11:00 Active Scripts Active Reported Amlodipine Besylate 10 Mg Tablet 10 Mg PO DAILY Lisinopril-Hctz 20-12.5 Mg Tab (Lisinopril/Hydrochlorothiazide) 1 Each Tablet 1 Tab PO DAILY Allopurinol 100 Mg Tablet 100 Mg PO BID Vitals/I & O Vital Sign - Last 24 Hours 12/01/17 12/01/17 12/01/17 12/01/17 16:55 17:45 18:15 19:00 Temp 98.0 98.0 Pulse 104 92 92 94 Resp 20 20 20 26 B/P (MAP) 125/56 (79) 111/53 (72) 107/52 (70) 128/60 (82) Pulse Ox 95 91 90 91 O2 Delivery Room Air Room Air 12/01/17 12/01/17 12/01/17 12/01/17 19:19 19:45 20:00 21:00 Pulse 89 88 86 Resp 22 24 28 B/P (MAP) 114/53 (73) 127/60 (82) 132/60 (84) Pulse Ox 90 94 95 O2 Delivery Nasal Cannula Nasal Cannula Nasal Cannula O2 Flow Rate 2.0 2.0 2.0 12/01/17 12/01/17 12/01/17 12/01/17 21:15 21:30 21:45 22:00 Temp 98.6 98.6 Pulse 86 82 88 90 Resp 18 18 18 18 B/P (MAP) 113/49 (70) 117/50 (72) 123/54 (77) 110/49 (69) Pulse Ox 94 95 94 94 O2 Delivery Nasal Cannula Nasal Cannula Nasal Cannula Nasal Cannula O2 Flow Rate 2.0 2.0 2.0 2.0 12/01/17 12/01/17 12/01/17 12/01/17 22:30 23:00 23:59 23:59 Temp 99.0 99.0 Pulse 73 74 72 Resp 18 18 18 B/P (MAP) 100/48 (65) 93/46 (62) 101/56 (71) Pulse Ox 94 95 95 O2 Delivery Nasal Cannula Nasal Cannula Nasal Cannula Nasal Cannula O2 Flow Rate 2.0 2.0 2.0 2.0 12/02/17 12/02/17 12/02/17 12/02/17 01:14 02:00 03:00 04:00 Temp 98.5 98.5 Pulse 74 76 84 84 Resp 18 18 18 18 B/P (MAP) 120/59 (79) 107/47 (67) 93/48 (63) 116/58 (77) Pulse Ox 98 95 96 94 O2 Delivery Nasal Cannula Nasal Cannula Nasal Cannula Nasal Cannula O2 Flow Rate 2.0 2.0 2.0 2.0 12/02/17 12/02/17 12/02/17 12/02/17 04:00 05:00 06:00 07:00 Temp 99.0 99.0 Pulse 81 82 85 Resp 18 18 18 B/P (MAP) 140/86 (104) 121/58 (79) 121/58 (79) Pulse Ox 95 95 96 O2 Delivery Nasal Cannula Nasal Cannula Nasal Cannula Nasal Cannula O2 Flow Rate 2.0 2.0 2.0 2.0 12/02/17 12/02/17 12/02/17 12/02/17 07:30 08:00 08:52 09:00 Pulse 90 94 Resp 18 B/P (MAP) 125/53 (77) 116/54 (74) Pulse Ox 96 95 96 O2 Delivery Nasal Cannula Nasal Cannula Nasal Cannula O2 Flow Rate 2.0 2.0 2.5 2.0 12/02/17 12/02/17 12/02/17 12/02/17 09:14 09:15 10:00 11:52 Pulse 94 93 88 Resp 18 B/P (MAP) 118/45 118/45 116/54 (74) Pulse Ox 94 96 O2 Delivery Nasal Cannula O2 Flow Rate 2.0 2.5 12/02/17 12/02/17 12:00 12:30 Temp 101.1 101.1 Pulse 95 Resp 18 B/P (MAP) 127/56 (79) Pulse Ox 94 O2 Delivery Nasal Cannula Nasal Cannula O2 Flow Rate 2.0 2.0 Intake and Output 12/01/17 12/01/17 12/02/17 15:00 23:00 07:00 Output Total 700 ml Balance -700 ml CHLOE CARTER MD Dec 02, 2017 13:01
--- NOTE | 2017-12-02 13:55 | CONS ---
DATE OF CONSULTATION: 12/02/2017 LOCATION: Room ICU 4. REQUESTING PHYSICIAN: Dr. Lares. REASON FOR CONSULTATION: Questionable tuberculosis. 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 By Sunday-, he developed more right-sided chest pain. Denies any fevers or chills or sweats. Denies being around any ill contacts. No sputum production. No weight loss. No hemoptysis, but he did have a dry nagging cough. No dysuria. No cramps or diarrhea. No rashes. He ended up presenting to [facility] Emergency Room last evening, was found to have a white count of 12.4, underwent a chest x-ray, which showed left upper lobe infiltrate, possible pneumonia. He then underwent a CTA of his chest, which showed large bilateral pulmonary emboli, small right pleural effusion, right lower lobe infiltrate, possibly developing pulmonary infarct and a cavitary lesion in the left lung with a mass at the inferior margin of the cavity. Cultures were obtained. He was admitted to the hospital. He has not been placed on any antimicrobials. Currently, he is lying in bed. He is comfortable when he is lying. When he is sitting up or if he lays any further flat, he develops more shortness of air and discomfort. Of note, he did state that he had a tick on him approximately 4 days prior to the shortness of air developing. PAST MEDICAL HISTORY: Positive for hypertension, also has a history of left lower extremity osteomyelitis treated with 6 weeks of antibiotics, but he cannot remember which antibiotic he was taking. He has not had any complications since then. Denies any other surgical complications. REVIEW OF SYSTEMS: Otherwise negative except for what is mentioned above. ALLERGIES: No known drug allergies. 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 Recently, he states he was exposed to a pack a sweaters from [place]. He does consume alcohol, but not much over the past week. He has cats at home and has not traveled outside the country, not traveled much around the country. Denies any TB exposures. Quit smoking several years ago. No hunting or fishing recently. No rodents or birds. FAMILY HISTORY: Positive for diabetes, negative for heart disease, cancers or lymphomas. Again, no TB exposures. CURRENT MEDICATIONS: Include allopurinol, Norvasc, aspirin, Lovenox, hydrochlorothiazide, Prinivil, Protonix. Other meds are available and reviewed in the chart. PHYSICAL EXAMINATION: VITAL SIGNS: He has been afebrile since presentation, currently 98.5; pulse 82; respirations 18; blood pressure 121/58; satting 95% on 2 liters. CONSTITUTIONAL: He is cooperative. He is in no acute distress. He is sitting upright in bed. HEENT: Pupils are equal and reactive. He has normal conjunctivae, no hemorrhages. Oral cavity, pharynx is clear without petechia. NECK: Supple. Good range of motion, no JVD. LUNGS: Decreased in the bases. HEART: S1, S2. No gross murmur. ABDOMEN: Obese, soft, nontender, nondistended, positive bowel sounds. EXTREMITIES: No clubbing, cyanosis, and no gross edema. SKIN: Warm to touch without signs of generalized rash. Previous tick bite site in the right chest area without signs of any complications or scabbing in the area. NEUROLOGIC: Nonfocal and appropriate. PSYCHIATRIC: Affect is pleasant. LABORATORY DATA: White count 12, hemoglobin 12.3, platelets of 287, neutrophils 78, lymphs 8. Glucose 109, AST 32, ALT 54, alkaline phosphatase 112, total bilirubin of 2.5. Lipase was 91. TSH was normal. Radiology reviewed in history of present illness. IMPRESSION: 1. Leukocytosis. 2. Bilateral pulmonary emboli. 3. Tick bite 4 days prior to shortness of air. 4. Cavitary lesion. 5. History of left lower extremity osteomyelitis treated 6 weeks ago. Records are unavailable. He cannot remember which antibiotic he was taking or the pathogen. RECOMMENDATIONS: This is unlikely tuberculosis, but for now, we will dose vancomycin, Zosyn, doxycycline. Follow up labs and cultures. An echo has been ordered. He will await pulmonary evaluation, may need bronchoscopy. Additional evaluation based on the above may be warranted. Dr. Lares, thank you for asking us to participate in this patient's care. Should have any further questions, please do not hesitate to contact me. DAYANA HOFFMAN MD DR: Del JOB#: [id number] / [id number]
--- NOTE | 2017-12-02 13:56 | CARD ---
MR#: [id number] Date of Study: 12/02/2017 Ordering Physician: BRIDGETTE URIARTE, Referring Physician: LAURA CHEEK Tech: Samira Corbin RDCS APPROVED REPORT EXAM: Two-dimensional and M-mode echocardiogram with Doppler and color Doppler. Other Information Quality : Good INDICATION [facility] 2D DIMENSIONS RVDd3.5 (2.9-3.5cm)Left Atrium(2D)3.7 (1.6-4.0cm) IVSd1.1 (0.7-1.1cm)Aortic Root(2D)2.7 (2.0-3.7cm) LVDd4.2 (3.9-5.9cm)LVOT Diameter2.1 (1.8-2.4cm) PWd1.1 (0.7-1.1cm)LVDs2.1 (2.5-4.0cm) FS (%) 30.0 %SV63.3 ml LVEF(%)60.0 (>50%) Aortic Valve AoV Peak Jaycob.130.4cm/sAoV VTI19.7cm AO Peak GR.6.8mmHgLVOT VTI 16.28cm AO Mean GR.4mmHgAVA (VTI)2.95cm2 Mitral Valve MV E Dgatcxyh14.0cm/sMV DECEL [id number] MV A Rbztahvc37.3cm/sE/A Ratio1.3 TDI Lateral E' P. V10.30cm/sMedial E' P. V6.63cm/s E/Lateral E'9.3E/Medial E'14.5 Tricuspid Valve TR P. Xjxzxmps556ux/sRAP LOZZSSHP6fsNv TR Peak Gr.23anGpSYAN36vrKl Pulmonary Vein S1 Mpyoigan07.1cm/sS2 Qfzpbaqt16.46cm/s D2 Bkcycfkw82.5cm/s LEFT VENTRICLE The left ventricle is normal size. There is normal left ventricular wall thickness. The left ventricu lar systolic function is normal and the ejection fraction is within normal range. The Ejection Fracti on is 55-60%. There is a flattened septum consistent with right ventricle pressure overload. RIGHT VENTRICLE The right ventricle is mildly dilated. Systolic function is mildly reduced. ATRIA The left atrium size is normal. The right atrium is mildly dilated. The interatrial septum is intact with no evidence for an atrial septal defect or patent foramen ovale as noted on 2-D or Doppler imagi ng. AORTIC VALVE The aortic valve is normal in structure and function. Doppler and Color Flow revealed no significant aortic regurgitation. There is no significant aortic valvular stenosis. MITRAL VALVE The mitral valve is calcified but opens well. A mild mitral valve prolapse is present. There is no mi tral valve stenosis. Doppler and Color-flow revealed mild mitral regurgitation. TRICUSPID VALVE The tricuspid valve is normal in structure and function. Doppler and Color Flow revealed mild tricusp id regurgitation. There is moderate pulmonary hypertension. The PA pressure was estimated at 47 mmHg. There is no tricuspid valve stenosis. PULMONIC VALVE The pulmonic valve is not well visualized. Doppler and Color Flow revealed no pulmonic valvular regur gitation. There is no pulmonic valvular stenosis. GREAT VESSELS The aortic root is normal in size. The ascending aorta is normal in size. The IVC is normal in size a nd collapses >50% with inspiration. PERICARDIAL EFFUSION There is no evidence of significant pericardial effusion. Critical Notification Critical Value: No <Conclusion> The left ventricle is normal size. The left ventricular systolic function is normal and the ejection fraction is within normal range. The Ejection Fraction is 55-60%. The right ventricle is mildly dilated. Systolic function is mildly reduced. The right atrium is mildly dilated. There is no significant aortic valvular stenosis. Doppler and Color Flow revealed no significant aortic regurgitation. Doppler and Color-flow revealed mild mitral regurgitation. Doppler and Color Flow revealed mild tricuspid regurgitation. There is moderate pulmonary hypertension. The PA pressure was estimated at 47 mmHg. Signed by : Juanpablo Ruiz MD Electronically Approved : 12/02/2017 13:54:51
[2017-12-02] MEDS: HYDROcodone/APAP 5/325MG 1 TAB TABLET PO PRN (19:44)
[2017-12-02] MEDS ORDERED: VANCOMYCIN 1.75 GM in IV NORMAL SALINE 500ML BAG 500 ML IV SCH (21:00)
[2017-12-02] MEDS ORDERED: IV NORMAL SALINE 1000ML BAG 1,000 ML IV ONE (22:30)
[2017-12-03] VITALS (14 sets, daily range): BP systolic 87–140; BP diastolic 47–64
[2017-12-03 04:46] LABS: BASO # 0.1 x10^3/uL (0.0-0.2); BASO % 1 % (0-3); EOS % 0 % (0-3); HEMATOCRIT 32.1 % (39.0-53.0); HEMOGLOBIN 10.8 g/dL (13.0-17.5); LYMPH # 0.8 x10^3/uL (1.0-4.8); LYMPH % 9 % (24-48); MEAN CORPUSCULAR HEMOGLOBIN 31 pg (25-35); MEAN CORPUSCULAR HGB CONC 34 g/dL (31-37); MEAN CORPUSCULAR VOLUME 91 fL (79-100); MONO # 1.2 x10^3/uL (0.0-1.1); MONO % 13 % (0-9); NEUT # 7.2 x10^3uL (1.8-7.7); NEUT % 77 % (31-73); PLATELET COUNT 289 x10^3/uL (140-400); RED BLOOD COUNT 3.51 x10^6/uL (4.30-5.70); RED CELL DISTRIBUTION WIDTH 14.3 % (11.5-14.5); WHITE BLOOD COUNT 9.3 x10^3/uL (4.0-11.0)
[2017-12-03] MEDS: PIPERACILLIN/TAZOBACTAM 3.375 GM in IV NORMAL SALINE 50ML 50 ML IV SCH ×6 (05:17→23:28)
[2017-12-03] MEDS: HYDROcodone/APAP 5/325MG 1 TAB TABLET PO PRN ×2 (05:28→17:46)
[2017-12-03 05:29] LABS: CALCIUM 7.3 mg/dL (8.5-10.1); CREATININE 1.5 mg/dL (0.7-1.3); GFR 48.2; POTASSIUM 3.9 mmol/L (3.5-5.1)
--- NOTE | 2017-12-03 07:50 | PDOC ---
Infectious Disease Note Subjective Subjective pt is feeling ok, has chest pain with cough or deep breath on rt side ROS ROS no n/v/d/fever, wt loss does have some sob Vital Sign Vital Signs Vital Signs Date Time Temp Pulse Resp B/P (MAP) Pulse Ox O2 Delivery O2 Flow Rate FiO2 12/03/17 06:28 14 97 Nasal Cannula 2.0 12/03/17 06:00 74 121/64 (83) 12/03/17 04:00 98.8 98.8 Physical Exam PHYSICAL EXAM CONSTITUTIONAL: He is cooperative. He is in no acute distress. HEENT: Pupils are equal and reactive. He has normal conjunctivae, no hemorrhages. Oral cavity, pharynx is clear without petechia. NECK: Supple. Good range of motion, no JVD. LUNGS: Decreased in the bases. HEART: S1, S2. No gross murmur. ABDOMEN: Obese, soft, nontender, nondistended, positive bowel sounds. EXTREMITIES: No clubbing, cyanosis, and no gross edema. SKIN: Warm to touch without signs of generalized rash. NEUROLOGIC: Nonfocal and appropriate. PSYCHIATRIC: Affect is pleasant. Labs Lab Laboratory Tests Test 12/03/17 04:30 White Blood Count 9.3 x10^3/uL (4.0-11.0) Red Blood Count 3.51 x10^6/uL (4.30-5.70) Hemoglobin 10.8 g/dL (13.0-17.5) Hematocrit 32.1 % (39.0-53.0) Mean Corpuscular Volume 91 fL (79-100) Mean Corpuscular Hemoglobin 31 pg (25-35) Mean Corpuscular Hemoglobin Concent 34 g/dL (31-37) Red Cell Distribution Width 14.3 % (11.5-14.5) Platelet Count 289 x10^3/uL (140-400) Neutrophils (%) (Auto) 77 % (31-73) Lymphocytes (%) (Auto) 9 % (24-48) Monocytes (%) (Auto) 13 % (0-9) Eosinophils (%) (Auto) 0 % (0-3) Basophils (%) (Auto) 1 % (0-3) Neutrophils # (Auto) 7.2 x10^3uL (1.8-7.7) Lymphocytes # (Auto) 0.8 x10^3/uL (1.0-4.8) Monocytes # (Auto) 1.2 x10^3/uL (0.0-1.1) Eosinophils # (Auto) 0.0 x10^3/uL (0.0-0.7) Basophils # (Auto) 0.1 x10^3/uL (0.0-0.2) Sodium Level 130 mmol/L (136-145) Potassium Level 3.9 mmol/L (3.5-5.1) Chloride Level 97 mmol/L (98-107) Carbon Dioxide Level 26 mmol/L (21-32) Anion Gap 7 (6-14) Blood Urea Nitrogen 24 mg/dL (8-26) Creatinine 1.5 mg/dL (0.7-1.3) Estimated GFR (Cockcroft-Gault) 48.2 Glucose Level 107 mg/dL (70-99) Calcium Level 7.3 mg/dL (8.5-10.1) Micro Microbiology 12/01/17 Blood Culture - Preliminary, Resulted NO GROWTH AFTER 1 DAY Objective Assessment 1. Leukocytosis. 2. Bilateral pulmonary emboli. 3. Tick bite 4 days prior to shortness of air. 4. Cavitary lesion. with mass on left side 5. DVT Plan Plan of Care cont doxy and zosyn d/c vanc may need bronch and biopsy, doubt TB, likely has malignancy d/w family d/w TOMAS TOMLINSON MD Dec 03, 2017 07:50
[2017-12-03] MEDS: DOXYCYCLINE HYCLATE 100 MG TABLET PO SCH ×2 (08:36→20:25)
[2017-12-03] MEDS: ALLOPURINOL 100 MG TABLET. PO SCH ×2 (08:37→20:25)
[2017-12-03] MEDS: hydroCHLOROthiazide 12.5 MG CAPSULE PO SCH (08:37)
[2017-12-03] MEDS: PANTOPRAZOLE 40 MG TABLET.DR. PO SCH (08:37)
[2017-12-03] MEDS: amLODIPine BESYLATE 10 MG TABLET PO SCH (09:00)
[2017-12-03] MEDS: LISINOPRIL 20 MG TABLET PO SCH (09:00)
[2017-12-03] MEDS: IPRATRPIUM/ALBUTEROL 0.5/2.5MG 3 ML NEBU. NEB SCH ×4 (09:40→19:43)
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
[2017-12-03] MEDS: ANTI-COAG MONITOR BY PHARMACY. MC PRN (10:57)
--- NOTE | 2017-12-03 12:33 | PDOC ---
PROGRESS NOTES Chief Complaint Chief Complaint acute hypoxic respiratory failure bilateral large pulmonary embolism BL Leg DVT Pneumonia, possible cavitary lesion, isolate and r/o TB mild malnutrition morbid obesity HTN History of Present Illness History of Present Illness pt seen and examined at bedside pt complains of "brown urine" DW RN Vitals Vitals Vital Signs Date Time Temp Pulse Resp B/P (MAP) Pulse Ox O2 Delivery O2 Flow Rate FiO2 12/03/17 09:40 98 Nasal Cannula 2.5 12/03/17 09:00 77 24 122/63 (82) 12/03/17 08:00 98.1 98.1 Physical Exam General: Alert, Oriented X3, Cooperative Heart: Regular rate, Normal S1, Normal S2 Lungs: Clear, Crackles (lower rt lobe ) Abdomen: Normal bowel sounds, Soft Extremities: No clubbing, No cyanosis Skin: No rashes, No breakdown Labs LABS Laboratory Tests Test 12/03/17 04:30 White Blood Count 9.3 x10^3/uL (4.0-11.0) Red Blood Count 3.51 x10^6/uL (4.30-5.70) Hemoglobin 10.8 g/dL (13.0-17.5) Hematocrit 32.1 % (39.0-53.0) Mean Corpuscular Volume 91 fL (79-100) Mean Corpuscular Hemoglobin 31 pg (25-35) Mean Corpuscular Hemoglobin Concent 34 g/dL (31-37) Red Cell Distribution Width 14.3 % (11.5-14.5) Platelet Count 289 x10^3/uL (140-400) Neutrophils (%) (Auto) 77 % (31-73) Lymphocytes (%) (Auto) 9 % (24-48) Monocytes (%) (Auto) 13 % (0-9) Eosinophils (%) (Auto) 0 % (0-3) Basophils (%) (Auto) 1 % (0-3) Neutrophils # (Auto) 7.2 x10^3uL (1.8-7.7) Lymphocytes # (Auto) 0.8 x10^3/uL (1.0-4.8) Monocytes # (Auto) 1.2 x10^3/uL (0.0-1.1) Eosinophils # (Auto) 0.0 x10^3/uL (0.0-0.7) Basophils # (Auto) 0.1 x10^3/uL (0.0-0.2) Sodium Level 130 mmol/L (136-145) Potassium Level 3.9 mmol/L (3.5-5.1) Chloride Level 97 mmol/L (98-107) Carbon Dioxide Level 26 mmol/L (21-32) Anion Gap 7 (6-14) Blood Urea Nitrogen 24 mg/dL (8-26) Creatinine 1.5 mg/dL (0.7-1.3) Estimated GFR (Cockcroft-Gault) 48.2 Glucose Level 107 mg/dL (70-99) Calcium Level 7.3 mg/dL (8.5-10.1) Review of Systems Review of Systems no sob no nausea Assessment and Plan Assessmemt and Plan Assessment: acute hypoxic respiratory failure bilateral large pulmonary embolism BL Leg DVT Pneumonia, possible cavitary lesion, isolate and r/o TB mild malnutrition morbid obesity HTN Plan: Titrate FiO2 to keep O2 saturation 92%. Continue Lovenox 1 mg/kg subq./ can start Eliquis Protonix for stress ulcer prophylaxis. home meds labs ptot UA ICU monitoring Comment Review of Relevant I have reviewed the following items florencio (where applicable) has been applied. Labs Laboratory Tests Test 12/01/17 17:50 12/01/17 19:00 12/01/17 21:14 12/02/17 00:45 White Blood Count 12.4 x10^3/uL (4.0-11.0) Red Blood Count 4.23 x10^6/uL (4.30-5.70) Hemoglobin 13.0 g/dL (13.0-17.5) Hematocrit 38.0 % (39.0-53.0) Mean Corpuscular Volume 90 fL (79-100) Mean Corpuscular Hemoglobin 31 pg (25-35) Mean Corpuscular Hemoglobin Concent 34 g/dL (31-37) Red Cell Distribution Width 14.7 % (11.5-14.5) Platelet Count 286 x10^3/uL (140-400) Neutrophils (%) (Auto) 77 % (31-73) Lymphocytes (%) (Auto) 10 % (24-48) Monocytes (%) (Auto) 12 % (0-9) Eosinophils (%) (Auto) 0 % (0-3) Basophils (%) (Auto) 1 % (0-3) Neutrophils # (Auto) 9.6 x10^3uL (1.8-7.7) Lymphocytes # (Auto) 1.3 x10^3/uL (1.0-4.8) Monocytes # (Auto) 1.4 x10^3/uL (0.0-1.1) Eosinophils # (Auto) 0.0 x10^3/uL (0.0-0.7) Basophils # (Auto) 0.1 x10^3/uL (0.0-0.2) Prothrombin Time 15.7 SEC (11.7-14.0) Prothromb Time International Ratio 1.3 (0.8-1.1) Sodium Level 131 mmol/L (136-145) Potassium Level 4.2 mmol/L (3.5-5.1) Chloride Level 95 mmol/L (98-107) Carbon Dioxide Level 27 mmol/L (21-32) Anion Gap 9 (6-14) Blood Urea Nitrogen 24 mg/dL (8-26) Creatinine 1.4 mg/dL (0.7-1.3) Estimated GFR (Cockcroft-Gault) 52.2 BUN/Creatinine Ratio 17 (6-20) Glucose Level 109 mg/dL (70-99) Calcium Level 8.8 mg/dL (8.5-10.1) Magnesium Level 2.1 mg/dL (1.8-2.4) Total Bilirubin 2.2 mg/dL (0.2-1.0) Aspartate Amino Transf (AST/SGOT) 39 U/L (15-37) Alanine Aminotransferase (ALT/SGPT) 53 U/L (16-63) Alkaline Phosphatase 113 U/L (46-116) Creatine Kinase 22 U/L (39-308) Troponin I Quantitative < 0.017 ng/mL (0.000-0.055) < 0.017 ng/mL (0.000-0.055) GL-Ctq-P-Type Natriuretic Peptide 2728 pg/mL (0-124) Total Protein 6.7 g/dL (6.4-8.2) Albumin 2.6 g/dL (3.4-5.0) Albumin/Globulin Ratio 0.6 (1.0-1.7) Lipase 91 U/L (73-393) Thyroid Stimulating Hormone (TSH) 2.197 uIU/mL (0.358-3.74) Lactic Acid Level 1.5 mmol/L (0.4-2.0) Nasal Screen MRSA (PCR) Negative (Negative) Test 12/02/17 05:00 12/03/17 04:30 White Blood Count 12.0 x10^3/uL (4.0-11.0) 9.3 x10^3/uL (4.0-11.0) Red Blood Count 4.06 x10^6/uL (4.30-5.70) 3.51 x10^6/uL (4.30-5.70) Hemoglobin 12.3 g/dL (13.0-17.5) 10.8 g/dL (13.0-17.5) Hematocrit 36.9 % (39.0-53.0) 32.1 % (39.0-53.0) Mean Corpuscular Volume 91 fL (79-100) 91 fL (79-100) Mean Corpuscular Hemoglobin 30 pg (25-35) 31 pg (25-35) Mean Corpuscular Hemoglobin Concent 33 g/dL (31-37) 34 g/dL (31-37) Red Cell Distribution Width 14.2 % (11.5-14.5) 14.3 % (11.5-14.5) Platelet Count 287 x10^3/uL (140-400) 289 x10^3/uL (140-400) Neutrophils (%) (Auto) 78 % (31-73) 77 % (31-73) Lymphocytes (%) (Auto) 8 % (24-48) 9 % (24-48) Monocytes (%) (Auto) 12 % (0-9) 13 % (0-9) Eosinophils (%) (Auto) 0 % (0-3) 0 % (0-3) Basophils (%) (Auto) 1 % (0-3) 1 % (0-3) Neutrophils # (Auto) 9.3 x10^3uL (1.8-7.7) 7.2 x10^3uL (1.8-7.7) Lymphocytes # (Auto) 1.0 x10^3/uL (1.0-4.8) 0.8 x10^3/uL (1.0-4.8) Monocytes # (Auto) 1.5 x10^3/uL (0.0-1.1) 1.2 x10^3/uL (0.0-1.1) Eosinophils # (Auto) 0.0 x10^3/uL (0.0-0.7) 0.0 x10^3/uL (0.0-0.7) Basophils # (Auto) 0.1 x10^3/uL (0.0-0.2) 0.1 x10^3/uL (0.0-0.2) Prothrombin Time 16.3 SEC (11.7-14.0) Prothromb Time International Ratio 1.4 (0.8-1.1) Sodium Level 131 mmol/L (136-145) 130 mmol/L (136-145) Potassium Level 4.4 mmol/L (3.5-5.1) 3.9 mmol/L (3.5-5.1) Chloride Level 97 mmol/L (98-107) 97 mmol/L (98-107) Carbon Dioxide Level 29 mmol/L (21-32) 26 mmol/L (21-32) Anion Gap 5 (6-14) 7 (6-14) Blood Urea Nitrogen 24 mg/dL (8-26) 24 mg/dL (8-26) Creatinine 1.3 mg/dL (0.7-1.3) 1.5 mg/dL (0.7-1.3) Estimated GFR (Cockcroft-Gault) 56.9 48.2 BUN/Creatinine Ratio 18 (6-20) Glucose Level 109 mg/dL (70-99) 107 mg/dL (70-99) Calcium Level 8.6 mg/dL (8.5-10.1) 7.3 mg/dL (8.5-10.1) Total Bilirubin 2.5 mg/dL (0.2-1.0) Aspartate Amino Transf (AST/SGOT) 32 U/L (15-37) Alanine Aminotransferase (ALT/SGPT) 54 U/L (16-63) Alkaline Phosphatase 112 U/L (46-116) Total Protein 6.8 g/dL (6.4-8.2) Albumin 2.5 g/dL (3.4-5.0) Albumin/Globulin Ratio 0.6 (1.0-1.7) Laboratory Tests Test 12/03/17 04:30 White Blood Count 9.3 x10^3/uL (4.0-11.0) Red Blood Count 3.51 x10^6/uL (4.30-5.70) Hemoglobin 10.8 g/dL (13.0-17.5) Hematocrit 32.1 % (39.0-53.0) Mean Corpuscular Volume 91 fL (79-100) Mean Corpuscular Hemoglobin 31 pg (25-35) Mean Corpuscular Hemoglobin Concent 34 g/dL (31-37) Red Cell Distribution Width 14.3 % (11.5-14.5) Platelet Count 289 x10^3/uL (140-400) Neutrophils (%) (Auto) 77 % (31-73) Lymphocytes (%) (Auto) 9 % (24-48) Monocytes (%) (Auto) 13 % (0-9) Eosinophils (%) (Auto) 0 % (0-3) Basophils (%) (Auto) 1 % (0-3) Neutrophils # (Auto) 7.2 x10^3uL (1.8-7.7) Lymphocytes # (Auto) 0.8 x10^3/uL (1.0-4.8) Monocytes # (Auto) 1.2 x10^3/uL (0.0-1.1) Eosinophils # (Auto) 0.0 x10^3/uL (0.0-0.7) Basophils # (Auto) 0.1 x10^3/uL (0.0-0.2) Sodium Level 130 mmol/L (136-145) Potassium Level 3.9 mmol/L (3.5-5.1) Chloride Level 97 mmol/L (98-107) Carbon Dioxide Level 26 mmol/L (21-32) Anion Gap 7 (6-14) Blood Urea Nitrogen 24 mg/dL (8-26) Creatinine 1.5 mg/dL (0.7-1.3) Estimated GFR (Cockcroft-Gault) 48.2 Glucose Level 107 mg/dL (70-99) Calcium Level 7.3 mg/dL (8.5-10.1) Microbiology 12/01/17 Blood Culture - Preliminary, Resulted NO GROWTH AFTER 1 DAY Medications Current Medications Aspirin (Geoffrey Aspirin) 325 mg 1X ONCE PO Last administered on 12/01/17at 18:50 ; Start 12/01/17 at 17:15; Stop 12/01/17 at 17:35; Status DC Iohexol (Omnipaque 300 Mg/ml) 75 ml 1X ONCE IV Last administered on 12/01/17at 18:27; Start 12/01/17 at 17:45; Stop 12/01/17 at 17:46; Status DC Info (CONTRAST GIVEN -- Rx MONITORING) 1 each PRN DAILY PRN MC SEE COMMENTS; Start 12/01/17 at 17:45; Stop 12/03/17 at 17:44 Sodium Chloride 1,000 ml @ 1,000 mls/hr 1X ONCE IV ; Start 12/01/17 at 18:30; Stop 12/01/17 at 18:49; Status DC Albuterol/ Ipratropium (Duoneb) 3 ml 1X ONCE NEB ; Start 12/01/17 at 18:45; Stop 12/01/17 at 18:49; Status DC Enoxaparin Sodium (Lovenox 120mg Syringe) 120 mg 1X ONCE SQ Last administered on 12/01/17at 19:19; Start 12/01/17 at 19:00; Stop 12/01/17 at 19:01; Status DC Ondansetron HCl (Zofran) 4 mg PRN Q8HRS PRN IV NAUSEA/VOMITING; Start 12/01/17 at 19:00; Stop 12/02/17 at 09:19; Status DC Fentanyl Citrate (Fentanyl 2ml Vial) 50 mcg PRN Q1HR PRN IV PAIN; Start at 19:00; Stop 12/02/17 at 18:59; Status DC Acetaminophen (Tylenol) 650 mg PRN Q4HRS PRN PO FEVER; Start 12/01/17 at 19:00 ; Stop 12/02/17 at 09:18; Status DC Allopurinol (Zyloprim) 100 mg BID PO Last administered on 12/03/17at 08:37; Start 12/02/17 at 09:00 Amlodipine Besylate (Norvasc) 10 mg DAILY PO Last administered on 12/02/17at 09: 15; Start 12/02/17 at 09:00 Non-Formulary Medication (Lisinopril/ Hydrochlorothiazide (Lisinopril-Hctz 20- 12.5 Mg Tab)) 1 tab DAILY PO ; Start 12/02/17 at 09:00; Status UNV Lisinopril (Prinivil) 20 mg DAILY PO Last administered on 12/02/17 09:14; Start 12/02/17 at 09:00 Hydrochlorothiazide (Microzide) 12.5 mg DAILY PO Last administered on 08:37; Start 12/02/17 at 09:00 Pantoprazole Sodium (Protonix) 40 mg DAILYAC PO Last administered on 12/03/17 08:37; Start 12/02/17 at 07:30 Enoxaparin Sodium (Lovenox 120mg Syringe) 120 mg Q12H SQ Last administered on 08:36; Start 12/02/17 at 07:00 Albuterol/ Ipratropium (Duoneb) 3 ml RTQID NEB Last administered on 12/03/17 09:40; Start 12/02/17 at 08:00 Vancomycin HCl (Vanco Per Pharmacy) 1 each PRN DAILY PRN MC SEE COMMENTS Last administered on 12/02/17 10:58; Start 12/02/17 at 06:45; Stop 12/03/17 at 07:50 ; Status DC Piperacillin Sod/ Tazobactam Sod 3.375 gm/Sodium Chloride 50 ml @ 100 mls/hr Q6HRS IV Last administered on 12/03/17 05:17; Start 12/02/17 at 07:30 Doxycycline Hyclate (Vibra-Tab) 100 mg BID PO Last administered on 12/03/17 08 :36; Start 12/02/17 at 09:00 Vancomycin HCl 2 gm/Sodium Chloride 500 ml @ 250 mls/hr 1X ONCE IV Last administered on 12/02/17 09:15; Start 12/02/17 at 08:00; Stop 12/03/17 at 07:50 ; Status DC Acetaminophen (Tylenol) 650 mg PRN Q6HRS PRN PO FEVER; Start 12/02/17 at 09:15 Ondansetron HCl (Zofran) 4 mg PRN Q6HRS PRN IV NAUSEA/VOMITING; Start 12/02/17 at 09:15 Morphine Sulfate (Morphine Sulfate) 2 mg PRN Q2HR PRN IV MODERATE TO SEVERE PAIN; Start 12/02/17 at 09:15 Tramadol HCl (Ultram) 50 mg PRN Q6HRS PRN PO MILD TO MODERATE PAIN; Start 12/02 at 09:15 Hydralazine HCl (Apresoline Inj) 10 mg PRN Q4HRS PRN IVP ELEVATED BP, SEE COMMENTS; Start 12/02/17 at 09:15 Docusate Sodium (Colace) 100 mg PRN DAILY PRN PO CONSTIPATION; Start 12/02/17 at 09:15 Vancomycin HCl 1.75 gm/Sodium Chloride 500 ml @ 250 mls/hr Q12HR IV Last administered on 12/02/17at 20:52; Start 12/02/17 at 21:00; Stop 12/03/17 at 07:50 ; Status DC Vancomycin HCl (Vancomycin Trough Level) 1 each 1X ONCE MC ; Start 12/03/17 at 20:30; Stop 12/03/17 at 20:30; Status DC Info (Anti-Coagulation Monitoring By Pharmacy) 1 each PRN DAILY PRN MC SEE COMMENTS Last administered on 12/03/17at 10:57; Start 12/02/17 at 11:00 Acetaminophen/ Hydrocodone Bitart (Lortab 5/325) 1 tab PRN Q4HRS PRN PO PAIN Last administered on 12/03/17at 05:28; Start 12/02/17 at 18:00 Sodium Chloride 1,000 ml @ 1,000 mls/hr 1X ONCE IV Last administered on at 22:29; Start 12/02/17 at 22:30; Stop 12/02/17 at 23:29; Status DC Active Scripts Active Reported Amlodipine Besylate 10 Mg Tablet 10 Mg PO DAILY Lisinopril-Hctz 20-12.5 Mg Tab (Lisinopril/Hydrochlorothiazide) 1 Each Tablet 1 Tab PO DAILY Allopurinol 100 Mg Tablet 100 Mg PO BID Vitals/I & O Vital Sign - Last 24 Hours 12/02/17 12/02/17 12/02/17 12/02/17 12:30 13:00 14:09 15:10 Pulse 87 82 77 Resp 18 20 20 B/P (MAP) 110/51 (70) 111/52 (71) 97/58 (71) Pulse Ox 95 96 96 O2 Delivery Nasal Cannula Nasal Cannula Nasal Cannula Nasal Cannula O2 Flow Rate 2.0 2.0 2.0 2.0 12/02/17 12/02/17 12/02/17 12/02/17 16:00 16:00 16:14 17:00 Temp 99.1 99.1 Pulse 80 85 Resp 20 20 B/P (MAP) 118/51 (73) 143/58 (86) Pulse Ox 96 98 95 O2 Delivery Nasal Cannula Nasal Cannula Nasal Cannula O2 Flow Rate 2.0 2.0 2.5 2.0 12/02/17 12/02/17 12/02/17 12/02/17 18:00 19:00 19:44 19:55 Pulse 81 80 Resp 20 20 18 B/P (MAP) 106/44 (64) 84/55 (65) Pulse Ox 98 98 98 98 O2 Delivery Nasal Cannula Nasal Cannula Nasal Cannula Nasal Cannula O2 Flow Rate 2.0 2.0 2.0 2.5 12/02/17 12/02/17 12/02/17 12/02/17 20:00 20:00 21:00 22:00 Temp 99.0 99.0 Pulse 82 81 81 Resp 20 20 20 B/P (MAP) 104/51 (68) 96/54 (68) 92/58 (69) Pulse Ox 98 98 98 O2 Delivery Nasal Cannula Nasal Cannula Nasal Cannula Nasal Cannula O2 Flow Rate 2.0 2.0 2.0 2.0 12/02/17 12/02/17 12/02/17 12/03/17 23:00 23:59 23:59 01:00 Temp 97.8 97.8 Pulse 72 68 71 Resp 20 20 20 B/P (MAP) 86/49 (61) 114/52 (72) 109/54 (72) Pulse Ox 98 98 94 O2 Delivery Nasal Cannula Nasal Cannula Nasal Cannula Nasal Cannula O2 Flow Rate 2.0 2.0 2.0 2.0 12/03/17 12/03/17 12/03/17 12/03/17 02:00 03:00 04:00 04:00 Temp 98.8 98.8 Pulse 71 75 72 Resp 20 20 20 B/P (MAP) 117/54 (75) 107/60 (76) 125/56 (79) Pulse Ox 97 97 97 O2 Delivery Nasal Cannula Nasal Cannula Nasal Cannula Nasal Cannula O2 Flow Rate 2.0 2.0 2.0 2.0 12/03/17 12/03/17 12/03/17 12/03/17 05:00 05:28 06:00 06:28 Pulse 76 74 Resp 20 18 20 14 B/P (MAP) 121/60 (80) 121/64 (83) Pulse Ox 97 97 97 97 O2 Delivery Nasal Cannula Nasal Cannula Nasal Cannula Nasal Cannula O2 Flow Rate 2.0 2.0 2.0 2.0 12/03/17 12/03/17 12/03/17 12/03/17 07:00 08:00 08:00 09:00 Temp 98.1 98.1 Pulse 68 71 77 Resp 20 20 24 B/P (MAP) 87/47 (60) 117/58 (77) 122/63 (82) Pulse Ox 96 98 96 O2 Delivery Nasal Cannula Nasal Cannula Nasal Cannula Nasal Cannula O2 Flow Rate 2.0 2.0 2.0 2.0 12/03/17 09:40 Pulse Ox 98 O2 Delivery Nasal Cannula O2 Flow Rate 2.5 Intake and Output 12/02/17 12/02/17 12/03/17 15:00 23:00 07:00 Intake Total 800 ml 200 ml 1150 ml Output Total 550 ml 450 ml Balance 250 ml -250 ml 1150 ml LARRY OLIVEIRA III DO Dec 03, 2017 12:32
[2017-12-04] VITALS (7 sets, daily range): BP systolic 117–148; BP diastolic 51–85
[2017-12-04] MEDS: HYDROcodone/APAP 5/325MG 1 TAB TABLET PO PRN ×3 (03:51→19:34)
[2017-12-04 04:22] LABS: BILIRUBIN,URINE NEGATIVE (NEG); CLARITY,URINE CLEAR; COLOR,URINE YELLOW; NITRITE,URINE NEGATIVE (NEG); PH,URINE 5.5; PROTEIN,URINE NEGATIVE (NEG-TRACE)
[2017-12-04 05:03] LABS: AMORPHOUS SEDIMENT,UR PRESENT /HPF; BACTERIA,URINE 0 /HPF (0-FEW); RBC,URINE OCC /HPF (0-2); SQUAMOUS EPITHELIAL CELL,UR OCC /LPF; WBC,URINE OCC /HPF (0-4)
[2017-12-04] MEDS: PIPERACILLIN/TAZOBACTAM 3.375 GM in IV NORMAL SALINE 50ML 50 ML IV SCH ×3 (05:28→18:53)
--- NOTE | 2017-12-04 07:21 | PDOC ---
Infectious Disease Note Subjective Subjective pt is feeling better, chest pain is better ROS ROS no n/v/d/sob/fever Vital Sign Vital Signs Vital Signs Date Time Temp Pulse Resp B/P (MAP) Pulse Ox O2 Delivery O2 Flow Rate FiO2 12/04/17 04:51 20 97 Nasal Cannula 2.0 12/04/17 04:00 98.8 81 129/58 (81) 98.8 Physical Exam PHYSICAL EXAM CONSTITUTIONAL: He is cooperative. He is in no acute distress. HEENT: Pupils are equal and reactive. He has normal conjunctivae, no hemorrhages. Oral cavity, pharynx is clear without petechia. NECK: Supple. Good range of motion, no JVD. LUNGS: Decreased in the bases. HEART: S1, S2. No gross murmur. ABDOMEN: Obese, soft, nontender, nondistended, positive bowel sounds. EXTREMITIES: No clubbing, cyanosis, and no gross edema. SKIN: Warm to touch without signs of generalized rash. NEUROLOGIC: Nonfocal and appropriate. PSYCHIATRIC: Affect is pleasant. Labs Lab Laboratory Tests Test 12/03/17 14:30 12/04/17 03:50 Homocystine 13.0 umol/L (0.0-15.0) Urine Collection Type Unknown Urine Color Yellow Urine Clarity Clear Urine pH 5.5 Urine Specific [place] 1.015 Urine Protein Negative mg/dL (NEG-TRACE) Urine Glucose (UA) Negative mg/dL (NEG) Urine Ketones (Stick) Negative mg/dL (NEG) Urine Blood Negative (NEG) Urine Nitrite Negative (NEG) Urine Bilirubin Negative (NEG) Urine Urobilinogen Dipstick 1.0 mg/dL (0.2 mg/dL) Urine Leukocyte Esterase Negative (NEG) Urine RBC Occ /HPF (0-2) Urine WBC Occ /HPF (0-4) Urine Squamous Epithelial Cells Occ /LPF Urine Amorphous Sediment Present /HPF Urine Bacteria 0 /HPF (0-FEW) Urine Mucus Slight /LPF Micro Microbiology 12/01/17 Blood Culture - Preliminary, Resulted NO GROWTH AFTER 1 DAY Objective Assessment 1. Leukocytosis. 2. Bilateral pulmonary emboli. 3. Tick bite 4 days prior to shortness of air. 4. Cavitary lesion. with mass on left side 5. DVT Plan Plan of Care cont stiven and yudith d/w family d/w RN d/w TOMAS Conte MD Dec 04, 2017 07:21
[2017-12-04] MEDS: PANTOPRAZOLE 40 MG TABLET.DR. PO SCH (08:45)
[2017-12-04] MEDS: DOXYCYCLINE HYCLATE 100 MG TABLET PO SCH ×2 (08:45→20:47)
[2017-12-04] MEDS: ALLOPURINOL 100 MG TABLET. PO SCH ×2 (08:45→20:47)
[2017-12-04] MEDS: amLODIPine BESYLATE 10 MG TABLET PO SCH (08:45)
[2017-12-04] MEDS: hydroCHLOROthiazide 12.5 MG CAPSULE PO SCH (08:45)
[2017-12-04] MEDS: LISINOPRIL 20 MG TABLET PO SCH (08:46)
--- NOTE | 2017-12-04 09:09 | PDOC ---
SUBJECTIVE Subjective S: Doing okay, actually got up to get to the bathroom without oxygen last night and sats were 94%, feels like his breathing is still about the same, legs not bothering him O: Physical exam: Gen.: Well-nourished and well-developed, resting in bed Lungs: Breathing comfortably on NCO2 with no evidence of respiratory distress Extremities: mild BLE edema Skin: Warm and dry Psychiatric: Pleasant mood and affect Labs: Creatinine 1.5 Assessment and Plan: He is a 57-year-old male with history of left lower extremity DVT unprovoked remotely and new bilateral lower extremity DVT and bilateral pulmonary emboli with possible pulmonary infarct and cavitary lesion, infectious diseases is helping to rule out TB and pulmonary is involved and he will likely be getting a bronchoscopy for possible pulmonary malignancy in 4-6 wks with history of tobacco in the past. Now that he has had recurrent thrombosis indef anticoagulation is recommended. Hypercoag workup could be considered in the future as needed, typically better off anticoauglation not w/ acute thrombosis in the future prn, without family history of clotting. We considered edoxaban 60 mg daily, if he has malignancy, but unless proven, apixaban is fine, anamaria w/ borderline renal function. Recurrent thromboses: Recommend indefinite anticoagulation, it is fine to transition to apixaban (10 mg twice a day x 1 wk f/b 5 mg po bid) at any point in the near future, would favor Edoxaban if malignancy proven down the road postphlebitic syndrome: would recommend bilateral lower extremity compression stockings Cavitary lesion in the lung: ID is involved to help likely r/o tuberculosis Concern for lung malignancy with history of smoking: Pulmonary is involved and pending upcoming bronchoscopy in 4-6 wks Disposition: We can have him follow-up in our clinic after bronchoscopy completed, and can consider hypercoagulable workup in follow-up Thank you kindly, and please don't hesitate to call with any further questions. OBJECTIVE Vital Signs Vital Signs Date Time Temp Pulse Resp B/P (MAP) Pulse Ox O2 Delivery O2 Flow Rate FiO2 12/04/17 08:46 73 148/85 12/04/17 08:45 73 148/85 12/04/17 08:30 97.7 73 16 148/85 (106) 99 Nasal Cannula 2.0 97.7 12/04/17 04:51 20 97 Nasal Cannula 2.0 12/04/17 04:00 98.8 81 21 129/58 (81) 98 Nasal Cannula 2.0 98.8 12/04/17 03:51 18 98 Nasal Cannula 2.0 12/03/17 23:59 99.0 79 21 99/56 (70) 98 Nasal Cannula 2.0 99.0 12/03/17 20:00 Nasal Cannula 2.0 12/03/17 20:00 99.0 92 21 100/50 (67) 98 Nasal Cannula 2.0 99.0 12/03/17 19:50 Nasal Cannula 2.5 12/03/17 17:46 24 96 Nasal Cannula 2.0 12/03/17 16:00 99.2 83 21 139/50 (79) 98 Nasal Cannula 2.0 99.2 12/03/17 14:00 84 26 112/60 (77) 96 Nasal Cannula 2.0 12/03/17 12:54 Nasal Cannula 2.5 12/03/17 12:00 89 30 140/61 (87) 96 Nasal Cannula 2.0 12/03/17 09:40 98 Nasal Cannula 2.5 I & O Intake and Output 12/04/17 07:00 Intake Total 3250 ml Output Total 3400 ml Balance -150 ml Intake Oral 3200 ml IV Total 50 ml Output Urine Total 3400 ml COMMENT Lab Laboratory Tests Test 12/03/17 14:30 12/04/17 03:50 Homocystine 13.0 umol/L (0.0-15.0) Urine Collection Type Unknown Urine Color Yellow Urine Clarity Clear Urine pH 5.5 Urine Specific [place] 1.015 Urine Protein Negative mg/dL (NEG-TRACE) Urine Glucose (UA) Negative mg/dL (NEG) Urine Ketones (Stick) Negative mg/dL (NEG) Urine Blood Negative (NEG) Urine Nitrite Negative (NEG) Urine Bilirubin Negative (NEG) Urine Urobilinogen Dipstick 1.0 mg/dL (0.2 mg/dL) Urine Leukocyte Esterase Negative (NEG) Urine RBC Occ /HPF (0-2) Urine WBC Occ /HPF (0-4) Urine Squamous Epithelial Cells Occ /LPF Urine Amorphous Sediment Present /HPF Urine Bacteria 0 /HPF (0-FEW) Urine Mucus Slight /LPF SHAYLA TANG MD Dec 04, 2017 09:09
[2017-12-04] MEDS: IPRATRPIUM/ALBUTEROL 0.5/2.5MG 3 ML NEBU. NEB SCH ×4 (09:15→19:53)
[2017-12-04 10:04] LABS: BASO % 0 % (0-3); EOS # 0.1 x10^3/uL (0.0-0.7); EOS % 1 % (0-3); HEMATOCRIT 33.2 % (39.0-53.0); HEMOGLOBIN 11.3 g/dL (13.0-17.5); LYMPH % 13 % (24-48); MEAN CORPUSCULAR HEMOGLOBIN 31 pg (25-35); MEAN CORPUSCULAR HGB CONC 34 g/dL (31-37); MEAN CORPUSCULAR VOLUME 91 fL (79-100); MONO # 0.8 x10^3/uL (0.0-1.1); MONO % 10 % (0-9); NEUT # 5.7 x10^3uL (1.8-7.7); NEUT % 75 % (31-73); PLATELET COUNT 336 x10^3/uL (140-400); RED BLOOD COUNT 3.64 x10^6/uL (4.30-5.70); RED CELL DISTRIBUTION WIDTH 14.4 % (11.5-14.5); WHITE BLOOD COUNT 7.6 x10^3/uL (4.0-11.0)
[2017-12-04 10:11] LABS: CALCIUM 8.2 mg/dL (8.5-10.1); CREATININE 1.1 mg/dL (0.7-1.3); POTASSIUM 4.1 mmol/L (3.5-5.1)
[2017-12-04] MEDS: ANTI-COAG MONITOR BY PHARMACY. MC PRN ×2 (11:14→12:10)
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
--- NOTE | 2017-12-04 12:58 | PDOC ---
PROGRESS NOTES Chief Complaint Chief Complaint Medical Problems: acute hypoxic respiratory failure bilateral large pulmonary embolism BL Leg DVT Pneumonia, possible cavitary lesion, isolate and r/o TB mild malnutrition morbid obesity HTN History of Present Illness History of Present Illness pt seen and examined at bedside pt affect is pleasant DW RN pt. management regimen Vitals Vitals Vital Signs Date Time Temp Pulse Resp B/P (MAP) Pulse Ox O2 Delivery O2 Flow Rate FiO2 12/04/17 12:40 20 94 Room Air 12/04/17 12:00 98.3 78 136/56 (82) 98.3 12/04/17 08:30 2.0 Physical Exam General: Alert, Oriented X3, Cooperative, No acute distress Heart: Regular rate, Normal S1, Normal S2 Lungs: Clear, Other Abdomen: Normal bowel sounds, Soft, No tenderness, No masses Extremities: No clubbing, No cyanosis, No edema, Normal pulses, No tenderness/ swelling Skin: No rashes, No breakdown, No significant lesion Labs LABS Laboratory Tests Test 12/03/17 14:30 12/04/17 03:50 12/04/17 09:50 Homocystine 13.0 umol/L (0.0-15.0) Urine Collection Type Unknown Urine Color Yellow Urine Clarity Clear Urine pH 5.5 Urine Specific [place] 1.015 Urine Protein Negative mg/dL (NEG-TRACE) Urine Glucose (UA) Negative mg/dL (NEG) Urine Ketones (Stick) Negative mg/dL (NEG) Urine Blood Negative (NEG) Urine Nitrite Negative (NEG) Urine Bilirubin Negative (NEG) Urine Urobilinogen Dipstick 1.0 mg/dL (0.2 mg/dL) Urine Leukocyte Esterase Negative (NEG) Urine RBC Occ /HPF (0-2) Urine WBC Occ /HPF (0-4) Urine Squamous Epithelial Cells Occ /LPF Urine Amorphous Sediment Present /HPF Urine Bacteria 0 /HPF (0-FEW) Urine Mucus Slight /LPF White Blood Count 7.6 x10^3/uL (4.0-11.0) Red Blood Count 3.64 x10^6/uL (4.30-5.70) Hemoglobin 11.3 g/dL (13.0-17.5) Hematocrit 33.2 % (39.0-53.0) Mean Corpuscular Volume 91 fL (79-100) Mean Corpuscular Hemoglobin 31 pg (25-35) Mean Corpuscular Hemoglobin Concent 34 g/dL (31-37) Red Cell Distribution Width 14.4 % (11.5-14.5) Platelet Count 336 x10^3/uL (140-400) Neutrophils (%) (Auto) 75 % (31-73) Lymphocytes (%) (Auto) 13 % (24-48) Monocytes (%) (Auto) 10 % (0-9) Eosinophils (%) (Auto) 1 % (0-3) Basophils (%) (Auto) 0 % (0-3) Neutrophils # (Auto) 5.7 x10^3uL (1.8-7.7) Lymphocytes # (Auto) 1.0 x10^3/uL (1.0-4.8) Monocytes # (Auto) 0.8 x10^3/uL (0.0-1.1) Eosinophils # (Auto) 0.1 x10^3/uL (0.0-0.7) Basophils # (Auto) 0.0 x10^3/uL (0.0-0.2) Sodium Level 129 mmol/L (136-145) Potassium Level 4.1 mmol/L (3.5-5.1) Chloride Level 98 mmol/L (98-107) Carbon Dioxide Level 25 mmol/L (21-32) Anion Gap 6 (6-14) Blood Urea Nitrogen 16 mg/dL (8-26) Creatinine 1.1 mg/dL (0.7-1.3) Estimated GFR (Cockcroft-Gault) 69.0 Glucose Level 105 mg/dL (70-99) Calcium Level 8.2 mg/dL (8.5-10.1) Review of Systems Review of Systems No CHAPARRO No N/V Assessment and Plan Assessmemt and Plan Medical Problems: acute hypoxic respiratory failure bilateral large pulmonary embolism BL Leg DVT Pneumonia, possible cavitary lesion, isolate and r/o TB mild malnutrition morbid obesity HTN Plan -Lovanox -eventual switch from Lovanox to Elequis -Labs -PT/OT -Possible DC tomorrow w/ DC dispossition pending Comment Review of Relevant I have reviewed the following items florencio (where applicable) has been applied. Labs Laboratory Tests Test 12/03/17 04:30 12/03/17 14:30 12/04/17 03:50 12/04/17 09:50 White Blood Count 9.3 x10^3/uL (4.0-11.0) 7.6 x10^3/uL (4.0-11.0) Red Blood Count 3.51 x10^6/uL (4.30-5.70) 3.64 x10^6/uL (4.30-5.70) Hemoglobin 10.8 g/dL (13.0-17.5) 11.3 g/dL (13.0-17.5) Hematocrit 32.1 % (39.0-53.0) 33.2 % (39.0-53.0) Mean Corpuscular Volume 91 fL (79-100) 91 fL (79-100) Mean Corpuscular Hemoglobin 31 pg (25-35) 31 pg (25-35) Mean Corpuscular Hemoglobin Concent 34 g/dL (31-37) 34 g/dL (31-37) Red Cell Distribution Width 14.3 % (11.5-14.5) 14.4 % (11.5-14.5) Platelet Count 289 x10^3/uL (140-400) 336 x10^3/uL (140-400) Neutrophils (%) (Auto) 77 % (31-73) 75 % (31-73) Lymphocytes (%) (Auto) 9 % (24-48) 13 % (24-48) Monocytes (%) (Auto) 13 % (0-9) 10 % (0-9) Eosinophils (%) (Auto) 0 % (0-3) 1 % (0-3) Basophils (%) (Auto) 1 % (0-3) 0 % (0-3) Neutrophils # (Auto) 7.2 x10^3uL (1.8-7.7) 5.7 x10^3uL (1.8-7.7) Lymphocytes # (Auto) 0.8 x10^3/uL (1.0-4.8) 1.0 x10^3/uL (1.0-4.8) Monocytes # (Auto) 1.2 x10^3/uL (0.0-1.1) 0.8 x10^3/uL (0.0-1.1) Eosinophils # (Auto) 0.0 x10^3/uL (0.0-0.7) 0.1 x10^3/uL (0.0-0.7) Basophils # (Auto) 0.1 x10^3/uL (0.0-0.2) 0.0 x10^3/uL (0.0-0.2) Sodium Level 130 mmol/L (136-145) 129 mmol/L (136-145) Potassium Level 3.9 mmol/L (3.5-5.1) 4.1 mmol/L (3.5-5.1) Chloride Level 97 mmol/L (98-107) 98 mmol/L (98-107) Carbon Dioxide Level 26 mmol/L (21-32) 25 mmol/L (21-32) Anion Gap 7 (6-14) 6 (6-14) Blood Urea Nitrogen 24 mg/dL (8-26) 16 mg/dL (8-26) Creatinine 1.5 mg/dL (0.7-1.3) 1.1 mg/dL (0.7-1.3) Estimated GFR (Cockcroft-Gault) 48.2 69.0 Glucose Level 107 mg/dL (70-99) 105 mg/dL (70-99) Calcium Level 7.3 mg/dL (8.5-10.1) 8.2 mg/dL (8.5-10.1) Homocystine 13.0 umol/L (0.0-15.0) Urine Collection Type Unknown Urine Color Yellow Urine Clarity Clear Urine pH 5.5 Urine Specific [place] 1.015 Urine Protein Negative mg/dL (NEG-TRACE) Urine Glucose (UA) Negative mg/dL (NEG) Urine Ketones (Stick) Negative mg/dL (NEG) Urine Blood Negative (NEG) Urine Nitrite Negative (NEG) Urine Bilirubin Negative (NEG) Urine Urobilinogen Dipstick 1.0 mg/dL (0.2 mg/dL) Urine Leukocyte Esterase Negative (NEG) Urine RBC Occ /HPF (0-2) Urine WBC Occ /HPF (0-4) Urine Squamous Epithelial Cells Occ /LPF Urine Amorphous Sediment Present /HPF Urine Bacteria 0 /HPF (0-FEW) Urine Mucus Slight /LPF Laboratory Tests Test 12/03/17 14:30 12/04/17 03:50 12/04/17 09:50 Homocystine 13.0 umol/L (0.0-15.0) Urine Collection Type Unknown Urine Color Yellow Urine Clarity Clear Urine pH 5.5 Urine Specific [place] 1.015 Urine Protein Negative mg/dL (NEG-TRACE) Urine Glucose (UA) Negative mg/dL (NEG) Urine Ketones (Stick) Negative mg/dL (NEG) Urine Blood Negative (NEG) Urine Nitrite Negative (NEG) Urine Bilirubin Negative (NEG) Urine Urobilinogen Dipstick 1.0 mg/dL (0.2 mg/dL) Urine Leukocyte Esterase Negative (NEG) Urine RBC Occ /HPF (0-2) Urine WBC Occ /HPF (0-4) Urine Squamous Epithelial Cells Occ /LPF Urine Amorphous Sediment Present /HPF Urine Bacteria 0 /HPF (0-FEW) Urine Mucus Slight /LPF White Blood Count 7.6 x10^3/uL (4.0-11.0) Red Blood Count 3.64 x10^6/uL (4.30-5.70) Hemoglobin 11.3 g/dL (13.0-17.5) Hematocrit 33.2 % (39.0-53.0) Mean Corpuscular Volume 91 fL (79-100) Mean Corpuscular Hemoglobin 31 pg (25-35) Mean Corpuscular Hemoglobin Concent 34 g/dL (31-37) Red Cell Distribution Width 14.4 % (11.5-14.5) Platelet Count 336 x10^3/uL (140-400) Neutrophils (%) (Auto) 75 % (31-73) Lymphocytes (%) (Auto) 13 % (24-48) Monocytes (%) (Auto) 10 % (0-9) Eosinophils (%) (Auto) 1 % (0-3) Basophils (%) (Auto) 0 % (0-3) Neutrophils # (Auto) 5.7 x10^3uL (1.8-7.7) Lymphocytes # (Auto) 1.0 x10^3/uL (1.0-4.8) Monocytes # (Auto) 0.8 x10^3/uL (0.0-1.1) Eosinophils # (Auto) 0.1 x10^3/uL (0.0-0.7) Basophils # (Auto) 0.0 x10^3/uL (0.0-0.2) Sodium Level 129 mmol/L (136-145) Potassium Level 4.1 mmol/L (3.5-5.1) Chloride Level 98 mmol/L (98-107) Carbon Dioxide Level 25 mmol/L (21-32) Anion Gap 6 (6-14) Blood Urea Nitrogen 16 mg/dL (8-26) Creatinine 1.1 mg/dL (0.7-1.3) Estimated GFR (Cockcroft-Gault) 69.0 Glucose Level 105 mg/dL (70-99) Calcium Level 8.2 mg/dL (8.5-10.1) Microbiology 12/01/17 Blood Culture - Preliminary, Resulted NO GROWTH AFTER 2 DAYS 12/02/17 AFB Specimen Processing Tissue - Final, Resulted 12/02/17 Acid Fast Bacilli Culture, Resulted Pending 12/02/17 Gram Stain - Final, Resulted Medications Current Medications Aspirin (Geoffrey Aspirin) 325 mg 1X ONCE PO Last administered on 12/01/17at 18:50 ; Start 12/01/17 at 17:15; Stop 12/01/17 at 17:35; Status DC Iohexol (Omnipaque 300 Mg/ml) 75 ml 1X ONCE IV Last administered on 12/01/17at 18:27; Start 12/01/17 at 17:45; Stop 12/01/17 at 17:46; Status DC Info (CONTRAST GIVEN -- Rx MONITORING) 1 each PRN DAILY PRN MC SEE COMMENTS; Start 12/01/17 at 17:45; Stop 12/03/17 at 17:44; Status DC Sodium Chloride 1,000 ml @ 1,000 mls/hr 1X ONCE IV ; Start 12/01/17 at 18:30; Stop 12/01/17 at 18:49; Status DC Albuterol/ Ipratropium (Duoneb) 3 ml 1X ONCE NEB ; Start 12/01/17 at 18:45; Stop 12/01/17 at 18:49; Status DC Enoxaparin Sodium (Lovenox 120mg Syringe) 120 mg 1X ONCE SQ Last administered on 12/01/17at 19:19; Start 12/01/17 at 19:00; Stop 12/01/17 at 19:01; Status DC Ondansetron HCl (Zofran) 4 mg PRN Q8HRS PRN IV NAUSEA/VOMITING; Start 12/01/17 at 19:00; Stop 12/02/17 at 09:19; Status DC Fentanyl Citrate (Fentanyl 2ml Vial) 50 mcg PRN Q1HR PRN IV PAIN; Start at 19:00; Stop 12/02/17 at 18:59; Status DC Acetaminophen (Tylenol) 650 mg PRN Q4HRS PRN PO FEVER; Start 12/01/17 at 19:00 ; Stop 12/02/17 at 09:18; Status DC Allopurinol (Zyloprim) 100 mg BID PO Last administered on 12/04/17 08:45; Start 12/02/17 at 09:00 Amlodipine Besylate (Norvasc) 10 mg DAILY PO Last administered on 12/04/17at 08: 45; Start 12/02/17 at 09:00 Non-Formulary Medication (Lisinopril/ Hydrochlorothiazide (Lisinopril-Hctz 20- 12.5 Mg Tab)) 1 tab DAILY PO ; Start 12/02/17 at 09:00; Status UNV Lisinopril (Prinivil) 20 mg DAILY PO Last administered on 12/04/17 08:46; Start 12/02/17 at 09:00 Hydrochlorothiazide (Microzide) 12.5 mg DAILY PO Last administered on at 08:45; Start 12/02/17 at 09:00 Pantoprazole Sodium (Protonix) 40 mg DAILYAC PO Last administered on 12/04/17 08:45; Start 12/02/17 at 07:30 Enoxaparin Sodium (Lovenox 120mg Syringe) 120 mg Q12H SQ Last administered on at 08:46; Start 12/02/17 at 07:00; Stop 12/04/17 at 12:20; Status DC Albuterol/ Ipratropium (Duoneb) 3 ml RTQID NEB Last administered on 12/04/17 09:15; Start 12/02/17 at 08:00 Vancomycin HCl (Vanco Per Pharmacy) 1 each PRN DAILY PRN MC SEE COMMENTS Last administered on 12/02/17at 10:58; Start 12/02/17 at 06:45; Stop 12/03/17 at 07:50 ; Status DC Piperacillin Sod/ Tazobactam Sod 3.375 gm/Sodium Chloride 50 ml @ 100 mls/hr Q6HRS IV Last administered on 12/04/17at 11:36; Start 12/02/17 at 07:30 Doxycycline Hyclate (Vibra-Tab) 100 mg BID PO Last administered on 12/04/17at 08 :45; Start 12/02/17 at 09:00 Vancomycin HCl 2 gm/Sodium Chloride 500 ml @ 250 mls/hr 1X ONCE IV Last administered on 12/02/17at 09:15; Start 12/02/17 at 08:00; Stop 12/03/17 at 07:50 ; Status DC Acetaminophen (Tylenol) 650 mg PRN Q6HRS PRN PO FEVER; Start 12/02/17 at 09:15 Ondansetron HCl (Zofran) 4 mg PRN Q6HRS PRN IV NAUSEA/VOMITING; Start 12/02/17 at 09:15 Morphine Sulfate (Morphine Sulfate) 2 mg PRN Q2HR PRN IV MODERATE TO SEVERE PAIN; Start 12/02/17 at 09:15 Tramadol HCl (Ultram) 50 mg PRN Q6HRS PRN PO MILD TO MODERATE PAIN; Start 12/02 at 09:15 Hydralazine HCl (Apresoline Inj) 10 mg PRN Q4HRS PRN IVP ELEVATED BP, SEE COMMENTS; Start 12/02/17 at 09:15 Docusate Sodium (Colace) 100 mg PRN DAILY PRN PO CONSTIPATION; Start 12/02/17 at 09:15 Vancomycin HCl 1.75 gm/Sodium Chloride 500 ml @ 250 mls/hr Q12HR IV Last administered on 12/02/17at 20:52; Start 12/02/17 at 21:00; Stop 12/03/17 at 07:50 ; Status DC Vancomycin HCl (Vancomycin Trough Level) 1 each 1X ONCE MC ; Start 12/03/17 at 20:30; Stop 12/03/17 at 20:30; Status DC Info (Anti-Coagulation Monitoring By Pharmacy) 1 each PRN DAILY PRN MC SEE COMMENTS Last administered on 12/04/17at 12:10; Start 12/02/17 at 11:00 Acetaminophen/ Hydrocodone Bitart (Lortab 5/325) 1 tab PRN Q4HRS PRN PO PAIN MODERATE TO SEVERE Last administered on 12/04/17at 11:37; Start 12/02/17 at 18:00 Sodium Chloride 1,000 ml @ 1,000 mls/hr 1X ONCE IV Last administered on at 22:29; Start 12/02/17 at 22:30; Stop 12/02/17 at 23:29; Status DC Apixaban (Eliquis) 10 mg BID PO ; Start 12/04/17 at 21:00; Stop 12/11/17 at 20: 59 Active Scripts Active Reported Amlodipine Besylate 10 Mg Tablet 10 Mg PO DAILY Lisinopril-Hctz 20-12.5 Mg Tab (Lisinopril/Hydrochlorothiazide) 1 Each Tablet 1 Tab PO DAILY Allopurinol 100 Mg Tablet 100 Mg PO BID Vitals/I & O Vital Sign - Last 24 Hours 12/03/17 12/03/17 12/03/17 12/03/17 12:54 14:00 16:00 17:46 Temp 99.2 99.2 Pulse 84 83 Resp 26 21 24 B/P (MAP) 112/60 (77) 139/50 (79) Pulse Ox 96 98 96 O2 Delivery Nasal Cannula Nasal Cannula Nasal Cannula Nasal Cannula O2 Flow Rate 2.5 2.0 2.0 2.0 12/03/17 12/03/17 12/03/17 12/03/17 19:50 20:00 20:00 23:59 Temp 99.0 99.0 99.0 99.0 Pulse 92 79 Resp 21 21 B/P (MAP) 100/50 (67) 99/56 (70) Pulse Ox 98 98 O2 Delivery Nasal Cannula Nasal Cannula Nasal Cannula Nasal Cannula O2 Flow Rate 2.5 2.0 2.0 2.0 12/04/17 12/04/17 12/04/17 12/04/17 03:51 04:00 04:51 08:00 Temp 98.8 98.8 Pulse 81 Resp 18 21 B/P (MAP) 129/58 (81) Pulse Ox 98 98 O2 Delivery Nasal Cannula Nasal Cannula Nasal Cannula O2 Flow Rate 2.0 2.0 2.0 2.0 12/04/17 12/04/17 12/04/17 12/04/17 08:30 08:45 08:46 09:15 Temp 97.7 97.7 Pulse 73 73 73 Resp 16 B/P (MAP) 148/85 (106) 148/85 148/85 Pulse Ox 99 96 O2 Delivery Nasal Cannula Room Air O2 Flow Rate 2.0 12/04/17 12/04/17 12/04/17 11:37 12:00 12:40 Temp 98.3 98.3 Pulse 78 Resp 24 17 20 B/P (MAP) 136/56 (82) Pulse Ox 95 93 94 O2 Delivery Room Air Room Air Room Air Intake and Output 12/03/17 12/03/17 12/04/17 15:00 23:00 07:00 Intake Total 900 ml 800 ml 1550 ml Output Total 1400 ml 1200 ml 800 ml Balance -500 ml -400 ml 750 ml LARRY OLIVEIRA III DO Dec 04, 2017 12:58
[2017-12-04] MEDS: APIXABAN 5 MG TABLET. PO SCH (20:47)
[2017-12-05] MEDS: PIPERACILLIN/TAZOBACTAM 3.375 GM in IV NORMAL SALINE 50ML 50 ML IV SCH ×2 (00:02→06:11)
[2017-12-05 03:40] VITALS: BP 110/49
[2017-12-05 07:00] VITALS: BP 139/60
[2017-12-05] MEDS: IPRATRPIUM/ALBUTEROL 0.5/2.5MG 3 ML NEBU. NEB SCH ×2 (07:23→11:54)
--- NOTE | 2017-12-05 08:26 | PDOC ---
Infectious Disease Note Subjective Subjective pt is feeling better, chest pain is better ROS ROS no n/v/d/sob Vital Sign Vital Signs Vital Signs Date Time Temp Pulse Resp B/P (MAP) Pulse Ox O2 Delivery O2 Flow Rate FiO2 12/05/17 07:25 97 Room Air 12/05/17 07:00 98.9 86 16 139/60 (86) 98.9 12/05/17 03:40 2.0 Physical Exam PHYSICAL EXAM CONSTITUTIONAL: He is cooperative. He is in no acute distress. HEENT: Pupils are equal and reactive. He has normal conjunctivae, no hemorrhages. Oral cavity, pharynx is clear without petechia. NECK: Supple. Good range of motion, no JVD. LUNGS: Decreased in the bases. HEART: S1, S2. No gross murmur. ABDOMEN: Obese, soft, nontender, nondistended, positive bowel sounds. EXTREMITIES: No clubbing, cyanosis, and no gross edema. SKIN: Warm to touch without signs of generalized rash. NEUROLOGIC: Nonfocal and appropriate. PSYCHIATRIC: Affect is pleasant. Labs Lab Laboratory Tests Test 12/04/17 09:50 White Blood Count 7.6 x10^3/uL (4.0-11.0) Red Blood Count 3.64 x10^6/uL (4.30-5.70) Hemoglobin 11.3 g/dL (13.0-17.5) Hematocrit 33.2 % (39.0-53.0) Mean Corpuscular Volume 91 fL (79-100) Mean Corpuscular Hemoglobin 31 pg (25-35) Mean Corpuscular Hemoglobin Concent 34 g/dL (31-37) Red Cell Distribution Width 14.4 % (11.5-14.5) Platelet Count 336 x10^3/uL (140-400) Neutrophils (%) (Auto) 75 % (31-73) Lymphocytes (%) (Auto) 13 % (24-48) Monocytes (%) (Auto) 10 % (0-9) Eosinophils (%) (Auto) 1 % (0-3) Basophils (%) (Auto) 0 % (0-3) Neutrophils # (Auto) 5.7 x10^3uL (1.8-7.7) Lymphocytes # (Auto) 1.0 x10^3/uL (1.0-4.8) Monocytes # (Auto) 0.8 x10^3/uL (0.0-1.1) Eosinophils # (Auto) 0.1 x10^3/uL (0.0-0.7) Basophils # (Auto) 0.0 x10^3/uL (0.0-0.2) Sodium Level 129 mmol/L (136-145) Potassium Level 4.1 mmol/L (3.5-5.1) Chloride Level 98 mmol/L (98-107) Carbon Dioxide Level 25 mmol/L (21-32) Anion Gap 6 (6-14) Blood Urea Nitrogen 16 mg/dL (8-26) Creatinine 1.1 mg/dL (0.7-1.3) Estimated GFR (Cockcroft-Gault) 69.0 Glucose Level 105 mg/dL (70-99) Calcium Level 8.2 mg/dL (8.5-10.1) Micro Microbiology 12/01/17 Blood Culture - Preliminary, Resulted NO GROWTH AFTER 1 DAY Objective Assessment 1. Leukocytosis. 2. Bilateral pulmonary emboli. 3. Tick bite 4 days prior to shortness of air. 4. Cavitary lesion. with mass on left side 5. DVT Plan Plan of Care cont doxy and zosyn,, change to po augmentin d/w family d/w RN d/w Dr Bowser,, f/u ct in 4 wks by him and if not better then bronch d/w ok to d/c from ID stand point f/u with me if needed TOMAS LOWERY MD Dec 05, 2017 08:26
[2017-12-05] MEDS: ALLOPURINOL 100 MG TABLET. PO SCH (08:30)
[2017-12-05] MEDS: PANTOPRAZOLE 40 MG TABLET.DR. PO SCH (08:30)
[2017-12-05] MEDS: LISINOPRIL 20 MG TABLET PO SCH (08:31)
[2017-12-05] MEDS: APIXABAN 5 MG TABLET. PO SCH (08:31)
[2017-12-05] MEDS: hydroCHLOROthiazide 12.5 MG CAPSULE PO SCH (08:31)
[2017-12-05] MEDS: amLODIPine BESYLATE 10 MG TABLET PO SCH (08:32)
--- NOTE | 2017-12-05 08:38 | PDOC ---
SUBJECTIVE Subjective S: doing well, on O2 this am still, on eliquis now O: Physical exam: Gen.: Well-nourished and well-developed, resting in bed Lungs: Breathing comfortably on NCO2 with no evidence of respiratory distress Psychiatric: Pleasant mood and affect Labs: Creatinine 1.1 Assessment and Plan: He is a 57-year-old male with history of left lower extremity DVT unprovoked remotely and new bilateral lower extremity DVT and bilateral pulmonary emboli with possible pulmonary infarct and cavitary lesion, infectious diseases has been assisting w/ r/o TB and pulmonary is involved and he will likely be getting a bronchoscopy for possible pulmonary malignancy in 4- 6 wks with history of tobacco in the past. Now that he has had recurrent thrombosis indef anticoagulation is recommended. Hypercoag workup could be considered in the future as needed, typically better off anticoagulation not w/ acute thrombosis in the future prn, without family history of clotting. We considered edoxaban 60 mg daily, if he has malignancy, but unless proven, apixaban is fine, anamaria w/ borderline renal function, which he has started. Recurrent thromboses: Recommend indefinite anticoagulation, on apixaban (10 mg twice a day x 1 wk f/b 5 mg po bid), would favor Edoxaban if malignancy proven down the road postphlebitic syndrome: would recommend bilateral lower extremity compression stockings Cavitary lesion in the lung: no e/o TB thus far Concern for lung malignancy with history of smoking: Pulmonary is involved and pending upcoming bronchoscopy likely in 4-6 wks Disposition: We can have him follow-up in our clinic after bronchoscopy completed, and can consider hypercoagulable workup in follow-up Thank you kindly, and please don't hesitate to call with any further questions. OBJECTIVE Vital Signs Vital Signs Date Time Temp Pulse Resp B/P (MAP) Pulse Ox O2 Delivery O2 Flow Rate FiO2 12/05/17 08:32 86 139/60 12/05/17 08:31 86 139/60 12/05/17 07:25 97 Room Air 12/05/17 07:00 98.9 86 16 139/60 (86) 96 98.9 12/05/17 03:40 98.1 70 20 110/49 (69) 95 Nasal Cannula 2.0 98.1 12/04/17 23:40 98.8 78 23 128/56 (80) 92 Nasal Cannula 1.0 98.8 12/04/17 20:45 97 Nasal Cannula 2.0 12/04/17 20:00 Nasal Cannula 2.0 12/04/17 19:55 95 Nasal Cannula 1.5 12/04/17 19:54 98.4 83 22 138/51 (80) 92 Room Air 98.4 12/04/17 19:34 92 Room Air 12/04/17 18:30 98.3 84 18 117/58 (77) 93 Room Air 98.3 12/04/17 16:12 95 Room Air 12/04/17 16:00 98.0 80 18 132/66 (88) 96 Room Air 98.0 12/04/17 13:35 94 Room Air 12/04/17 12:40 20 12/04/17 12:00 98.3 78 17 136/56 (82) 93 Room Air 98.3 12/04/17 11:37 24 95 Room Air 12/04/17 09:15 96 Room Air 12/04/17 08:46 73 148/85 12/04/17 08:45 73 148/85 I & O Intake and Output 12/05/17 07:00 Intake Total 2280 ml Output Total 1300 ml Balance 980 ml Intake Oral 2180 ml IV Total 100 ml Output Urine Total 1300 ml # Voids 2 # Bowel Movements 1 COMMENT Lab Laboratory Tests Test 12/04/17 09:50 White Blood Count 7.6 x10^3/uL (4.0-11.0) Red Blood Count 3.64 x10^6/uL (4.30-5.70) Hemoglobin 11.3 g/dL (13.0-17.5) Hematocrit 33.2 % (39.0-53.0) Mean Corpuscular Volume 91 fL (79-100) Mean Corpuscular Hemoglobin 31 pg (25-35) Mean Corpuscular Hemoglobin Concent 34 g/dL (31-37) Red Cell Distribution Width 14.4 % (11.5-14.5) Platelet Count 336 x10^3/uL (140-400) Neutrophils (%) (Auto) 75 % (31-73) Lymphocytes (%) (Auto) 13 % (24-48) Monocytes (%) (Auto) 10 % (0-9) Eosinophils (%) (Auto) 1 % (0-3) Basophils (%) (Auto) 0 % (0-3) Neutrophils # (Auto) 5.7 x10^3uL (1.8-7.7) Lymphocytes # (Auto) 1.0 x10^3/uL (1.0-4.8) Monocytes # (Auto) 0.8 x10^3/uL (0.0-1.1) Eosinophils # (Auto) 0.1 x10^3/uL (0.0-0.7) Basophils # (Auto) 0.0 x10^3/uL (0.0-0.2) Sodium Level 129 mmol/L (136-145) Potassium Level 4.1 mmol/L (3.5-5.1) Chloride Level 98 mmol/L (98-107) Carbon Dioxide Level 25 mmol/L (21-32) Anion Gap 6 (6-14) Blood Urea Nitrogen 16 mg/dL (8-26) Creatinine 1.1 mg/dL (0.7-1.3) Estimated GFR (Cockcroft-Gault) 69.0 Glucose Level 105 mg/dL (70-99) Calcium Level 8.2 mg/dL (8.5-10.1) SHAYLA TANG MD Dec 05, 2017 08:38
[2017-12-05] MEDS ORDERED: AMOXICILLIN/K CLAV 875/125MG TABLET. PO SCH (09:00)
[2017-12-05 09:37] LABS: BASO % 1 % (0-3); EOS # 0.1 x10^3/uL (0.0-0.7); EOS % 2 % (0-3); HEMATOCRIT 32.6 % (39.0-53.0); HEMOGLOBIN 11.1 g/dL (13.0-17.5); LYMPH # 0.7 x10^3/uL (1.0-4.8); LYMPH % 9 % (24-48); MEAN CORPUSCULAR HEMOGLOBIN 31 pg (25-35); MEAN CORPUSCULAR HGB CONC 34 g/dL (31-37); MEAN CORPUSCULAR VOLUME 91 fL (79-100); MONO # 0.5 x10^3/uL (0.0-1.1); MONO % 7 % (0-9); NEUT # 6.1 x10^3uL (1.8-7.7); NEUT % 82 % (31-73); PLATELET COUNT 416 x10^3/uL (140-400); RED BLOOD COUNT 3.59 x10^6/uL (4.30-5.70); RED CELL DISTRIBUTION WIDTH 14.4 % (11.5-14.5); WHITE BLOOD COUNT 7.4 x10^3/uL (4.0-11.0)
[2017-12-05 09:49] LABS: CALCIUM 8.3 mg/dL (8.5-10.1); CREATININE 1.2 mg/dL (0.7-1.3); GFR 62.4; POTASSIUM 4.3 mmol/L (3.5-5.1)
[2017-12-05 11:00] VITALS: BP 128/62
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
--- NOTE | 2017-12-05 12:45 | PDOC ---
PROGRESS NOTES Chief Complaint Chief Complaint Medical Problems: acute hypoxic respiratory failure bilateral large pulmonary embolism BL Leg DVT Pneumonia, possible cavitary lesion, isolate and r/o TB mild malnutrition morbid obesity HTN History of Present Illness History of Present Illness Pt. seen and examined at bedside Pt. affect is pleasant Pt. receiving O2 during visit DW Pulmonary pts. DC DW RN pts. DC Vitals Vitals Vital Signs Date Time Temp Pulse Resp B/P (MAP) Pulse Ox O2 Delivery O2 Flow Rate FiO2 12/05/17 11:54 95 Nasal Cannula 1.5 12/05/17 11:00 88 16 128/62 (84) 12/05/17 07:00 98.9 98.9 Physical Exam General: Alert, Oriented X3, Cooperative, No acute distress Heart: Regular rate, Normal S1, Normal S2 Lungs: Clear, Other (basilar rales on right) Abdomen: Normal bowel sounds, Soft, No tenderness, No hepatosplenomegaly, No masses Extremities: No clubbing, No edema, Normal pulses, No tenderness/swelling Skin: No rashes, No breakdown, No significant lesion Labs LABS Laboratory Tests Test 12/05/17 08:50 White Blood Count 7.4 x10^3/uL (4.0-11.0) Red Blood Count 3.59 x10^6/uL (4.30-5.70) Hemoglobin 11.1 g/dL (13.0-17.5) Hematocrit 32.6 % (39.0-53.0) Mean Corpuscular Volume 91 fL (79-100) Mean Corpuscular Hemoglobin 31 pg (25-35) Mean Corpuscular Hemoglobin Concent 34 g/dL (31-37) Red Cell Distribution Width 14.4 % (11.5-14.5) Platelet Count 416 x10^3/uL (140-400) Neutrophils (%) (Auto) 82 % (31-73) Lymphocytes (%) (Auto) 9 % (24-48) Monocytes (%) (Auto) 7 % (0-9) Eosinophils (%) (Auto) 2 % (0-3) Basophils (%) (Auto) 1 % (0-3) Neutrophils # (Auto) 6.1 x10^3uL (1.8-7.7) Lymphocytes # (Auto) 0.7 x10^3/uL (1.0-4.8) Monocytes # (Auto) 0.5 x10^3/uL (0.0-1.1) Eosinophils # (Auto) 0.1 x10^3/uL (0.0-0.7) Basophils # (Auto) 0.0 x10^3/uL (0.0-0.2) Sodium Level 132 mmol/L (136-145) Potassium Level 4.3 mmol/L (3.5-5.1) Chloride Level 97 mmol/L (98-107) Carbon Dioxide Level 26 mmol/L (21-32) Anion Gap 9 (6-14) Blood Urea Nitrogen 15 mg/dL (8-26) Creatinine 1.2 mg/dL (0.7-1.3) Estimated GFR (Cockcroft-Gault) 62.4 Glucose Level 101 mg/dL (70-99) Calcium Level 8.3 mg/dL (8.5-10.1) Review of Systems Review of Systems -Pt. lacked Dyspnea -Pt. lacked SOB Assessment and Plan Assessmemt and Plan Medical Problems: acute hypoxic respiratory failure bilateral large pulmonary embolism BL Leg DVT Pneumonia, possible cavitary lesion, isolate and r/o TB mild malnutrition morbid obesity HTN Plan: -Elequis -O2 -PT/OT -Labs -Possible DC today if okayed w/ pulmonary Comment Review of Relevant I have reviewed the following items florencio (where applicable) has been applied. Labs Laboratory Tests Test 12/03/17 14:30 12/04/17 03:50 12/04/17 09:50 12/05/17 08:50 Homocystine 13.0 umol/L (0.0-15.0) Urine Collection Type Unknown Urine Color Yellow Urine Clarity Clear Urine pH 5.5 Urine Specific [place] 1.015 Urine Protein Negative mg/dL (NEG-TRACE) Urine Glucose (UA) Negative mg/dL (NEG) Urine Ketones (Stick) Negative mg/dL (NEG) Urine Blood Negative (NEG) Urine Nitrite Negative (NEG) Urine Bilirubin Negative (NEG) Urine Urobilinogen Dipstick 1.0 mg/dL (0.2 mg/dL) Urine Leukocyte Esterase Negative (NEG) Urine RBC Occ /HPF (0-2) Urine WBC Occ /HPF (0-4) Urine Squamous Epithelial Cells Occ /LPF Urine Amorphous Sediment Present /HPF Urine Bacteria 0 /HPF (0-FEW) Urine Mucus Slight /LPF White Blood Count 7.6 x10^3/uL (4.0-11.0) 7.4 x10^3/uL (4.0-11.0) Red Blood Count 3.64 x10^6/uL (4.30-5.70) 3.59 x10^6/uL (4.30-5.70) Hemoglobin 11.3 g/dL (13.0-17.5) 11.1 g/dL (13.0-17.5) Hematocrit 33.2 % (39.0-53.0) 32.6 % (39.0-53.0) Mean Corpuscular Volume 91 fL (79-100) 91 fL (79-100) Mean Corpuscular Hemoglobin 31 pg (25-35) 31 pg (25-35) Mean Corpuscular Hemoglobin Concent 34 g/dL (31-37) 34 g/dL (31-37) Red Cell Distribution Width 14.4 % (11.5-14.5) 14.4 % (11.5-14.5) Platelet Count 336 x10^3/uL (140-400) 416 x10^3/uL (140-400) Neutrophils (%) (Auto) 75 % (31-73) 82 % (31-73) Lymphocytes (%) (Auto) 13 % (24-48) 9 % (24-48) Monocytes (%) (Auto) 10 % (0-9) 7 % (0-9) Eosinophils (%) (Auto) 1 % (0-3) 2 % (0-3) Basophils (%) (Auto) 0 % (0-3) 1 % (0-3) Neutrophils # (Auto) 5.7 x10^3uL (1.8-7.7) 6.1 x10^3uL (1.8-7.7) Lymphocytes # (Auto) 1.0 x10^3/uL (1.0-4.8) 0.7 x10^3/uL (1.0-4.8) Monocytes # (Auto) 0.8 x10^3/uL (0.0-1.1) 0.5 x10^3/uL (0.0-1.1) Eosinophils # (Auto) 0.1 x10^3/uL (0.0-0.7) 0.1 x10^3/uL (0.0-0.7) Basophils # (Auto) 0.0 x10^3/uL (0.0-0.2) 0.0 x10^3/uL (0.0-0.2) Sodium Level 129 mmol/L (136-145) 132 mmol/L (136-145) Potassium Level 4.1 mmol/L (3.5-5.1) 4.3 mmol/L (3.5-5.1) Chloride Level 98 mmol/L (98-107) 97 mmol/L (98-107) Carbon Dioxide Level 25 mmol/L (21-32) 26 mmol/L (21-32) Anion Gap 6 (6-14) 9 (6-14) Blood Urea Nitrogen 16 mg/dL (8-26) 15 mg/dL (8-26) Creatinine 1.1 mg/dL (0.7-1.3) 1.2 mg/dL (0.7-1.3) Estimated GFR (Cockcroft-Gault) 69.0 62.4 Glucose Level 105 mg/dL (70-99) 101 mg/dL (70-99) Calcium Level 8.2 mg/dL (8.5-10.1) 8.3 mg/dL (8.5-10.1) Laboratory Tests Test 12/05/17 08:50 White Blood Count 7.4 x10^3/uL (4.0-11.0) Red Blood Count 3.59 x10^6/uL (4.30-5.70) Hemoglobin 11.1 g/dL (13.0-17.5) Hematocrit 32.6 % (39.0-53.0) Mean Corpuscular Volume 91 fL (79-100) Mean Corpuscular Hemoglobin 31 pg (25-35) Mean Corpuscular Hemoglobin Concent 34 g/dL (31-37) Red Cell Distribution Width 14.4 % (11.5-14.5) Platelet Count 416 x10^3/uL (140-400) Neutrophils (%) (Auto) 82 % (31-73) Lymphocytes (%) (Auto) 9 % (24-48) Monocytes (%) (Auto) 7 % (0-9) Eosinophils (%) (Auto) 2 % (0-3) Basophils (%) (Auto) 1 % (0-3) Neutrophils # (Auto) 6.1 x10^3uL (1.8-7.7) Lymphocytes # (Auto) 0.7 x10^3/uL (1.0-4.8) Monocytes # (Auto) 0.5 x10^3/uL (0.0-1.1) Eosinophils # (Auto) 0.1 x10^3/uL (0.0-0.7) Basophils # (Auto) 0.0 x10^3/uL (0.0-0.2) Sodium Level 132 mmol/L (136-145) Potassium Level 4.3 mmol/L (3.5-5.1) Chloride Level 97 mmol/L (98-107) Carbon Dioxide Level 26 mmol/L (21-32) Anion Gap 9 (6-14) Blood Urea Nitrogen 15 mg/dL (8-26) Creatinine 1.2 mg/dL (0.7-1.3) Estimated GFR (Cockcroft-Gault) 62.4 Glucose Level 101 mg/dL (70-99) Calcium Level 8.3 mg/dL (8.5-10.1) Microbiology 12/01/17 Blood Culture - Preliminary, Resulted NO GROWTH AFTER 3 DAYS 12/02/17 AFB Specimen Processing Tissue - Final, Resulted 12/02/17 Acid Fast Bacilli Culture, Resulted Pending 12/02/17 Gram Stain - Final, Resulted Medications Current Medications Aspirin ([place]rey Aspirin) 325 mg 1X ONCE PO Last administered on 12/01/17at 18:50 ; Start 12/01/17 at 17:15; Stop 12/01/17 at 17:35; Status DC Iohexol (Omnipaque 300 Mg/ml) 75 ml 1X ONCE IV Last administered on 12/01/17at 18:27; Start 12/01/17 at 17:45; Stop 12/01/17 at 17:46; Status DC Info (CONTRAST GIVEN -- Rx MONITORING) 1 each PRN DAILY PRN MC SEE COMMENTS; Start 12/01/17 at 17:45; Stop 12/03/17 at 17:44; Status DC Sodium Chloride 1,000 ml @ 1,000 mls/hr 1X ONCE IV ; Start 12/01/17 at 18:30; Stop 12/01/17 at 18:49; Status DC Albuterol/ Ipratropium (Duoneb) 3 ml 1X ONCE NEB ; Start 12/01/17 at 18:45; Stop 12/01/17 at 18:49; Status DC Enoxaparin Sodium (Lovenox 120mg Syringe) 120 mg 1X ONCE SQ Last administered on 12/01/17at 19:19; Start 12/01/17 at 19:00; Stop 12/01/17 at 19:01; Status DC Ondansetron HCl (Zofran) 4 mg PRN Q8HRS PRN IV NAUSEA/VOMITING; Start 12/01/17 at 19:00; Stop 12/02/17 at 09:19; Status DC Fentanyl Citrate (Fentanyl 2ml Vial) 50 mcg PRN Q1HR PRN IV PAIN; Start at 19:00; Stop 12/02/17 at 18:59; Status DC Acetaminophen (Tylenol) 650 mg PRN Q4HRS PRN PO FEVER; Start 12/01/17 at 19:00 ; Stop 12/02/17 at 09:18; Status DC Allopurinol (Zyloprim) 100 mg BID PO Last administered on 12/05/17 08:30; Start 12/02/17 at 09:00 Amlodipine Besylate (Norvasc) 10 mg DAILY PO Last administered on 12/05/17at 08: 32; Start 12/02/17 at 09:00 Non-Formulary Medication (Lisinopril/ Hydrochlorothiazide (Lisinopril-Hctz 20- 12.5 Mg Tab)) 1 tab DAILY PO ; Start 12/02/17 at 09:00; Status UNV Lisinopril (Prinivil) 20 mg DAILY PO Last administered on 12/05/17 08:31; Start 12/02/17 at 09:00 Hydrochlorothiazide (Microzide) 12.5 mg DAILY PO Last administered on 08:31; Start 12/02/17 at 09:00 Pantoprazole Sodium (Protonix) 40 mg DAILYAC PO Last administered on 12/05/17at 08:30; Start 12/02/17 at 07:30 Enoxaparin Sodium (Lovenox 120mg Syringe) 120 mg Q12H SQ Last administered on at 08:46; Start 12/02/17 at 07:00; Stop 12/04/17 at 12:20; Status DC Albuterol/ Ipratropium (Duoneb) 3 ml RTQID NEB Last administered on 12/05/17at 11:54; Start 12/02/17 at 08:00 Vancomycin HCl (Vanco Per Pharmacy) 1 each PRN DAILY PRN MC SEE COMMENTS Last administered on 12/02/17at 10:58; Start 12/02/17 at 06:45; Stop 12/03/17 at 07:50 ; Status DC Piperacillin Sod/ Tazobactam Sod 3.375 gm/Sodium Chloride 50 ml @ 100 mls/hr Q6HRS IV Last administered on 12/05/17at 06:11; Start 12/02/17 at 07:30; Stop at 08:27; Status DC Doxycycline Hyclate (Vibra-Tab) 100 mg BID PO Last administered on 12/04/17at 20 :47; Start 12/02/17 at 09:00; Stop 12/05/17 at 08:27; Status DC Vancomycin HCl 2 gm/Sodium Chloride 500 ml @ 250 mls/hr 1X ONCE IV Last administered on 12/02/17at 09:15; Start 12/02/17 at 08:00; Stop 12/03/17 at 07:50 ; Status DC Acetaminophen (Tylenol) 650 mg PRN Q6HRS PRN PO FEVER; Start 12/02/17 at 09:15 Ondansetron HCl (Zofran) 4 mg PRN Q6HRS PRN IV NAUSEA/VOMITING; Start 12/02/17 at 09:15 Morphine Sulfate (Morphine Sulfate) 2 mg PRN Q2HR PRN IV MODERATE TO SEVERE PAIN; Start 12/02/17 at 09:15 Tramadol HCl (Ultram) 50 mg PRN Q6HRS PRN PO MILD TO MODERATE PAIN; Start 12/02 at 09:15 Hydralazine HCl (Apresoline Inj) 10 mg PRN Q4HRS PRN IVP ELEVATED BP, SEE COMMENTS; Start 12/02/17 at 09:15 Docusate Sodium (Colace) 100 mg PRN DAILY PRN PO CONSTIPATION; Start 12/02/17 at 09:15 Vancomycin HCl 1.75 gm/Sodium Chloride 500 ml @ 250 mls/hr Q12HR IV Last administered on 12/02/17 20:52; Start 12/02/17 at 21:00; Stop 12/03/17 at 07:50 ; Status DC Vancomycin HCl (Vancomycin Trough Level) 1 each 1X ONCE MC ; Start 12/03/17 at 20:30; Stop 12/03/17 at 20:30; Status DC Info (Anti-Coagulation Monitoring By Pharmacy) 1 each PRN DAILY PRN MC SEE COMMENTS Last administered on 12/04/17at 12:10; Start 12/02/17 at 11:00 Acetaminophen/ Hydrocodone Bitart (Lortab 5/325) 1 tab PRN Q4HRS PRN PO SEVERE PAIN Last administered on 12/04/17at 19:34; Start 12/02/17 at 18:00 Sodium Chloride 1,000 ml @ 1,000 mls/hr 1X ONCE IV Last administered on at 22:29; Start 12/02/17 at 22:30; Stop 12/02/17 at 23:29; Status DC Apixaban (Eliquis) 10 mg BID PO Last administered on 12/05/17at 08:31; Start at 21:00; Stop 12/11/17 at 20:59 Amoxicillin/ Clavulanate Potassium (Augmentin 875/ 125mg) 1 tab BID PO Last administered on 12/05/17at 08:35; Start 12/05/17 at 09:00 Active Scripts Active Reported Amlodipine Besylate 10 Mg Tablet 10 Mg PO DAILY Lisinopril-Hctz 20-12.5 Mg Tab (Lisinopril/Hydrochlorothiazide) 1 Each Tablet 1 Tab PO DAILY Allopurinol 100 Mg Tablet 100 Mg PO BID Vitals/I & O Vital Sign - Last 24 Hours 12/04/17 12/04/17 12/04/17 12/04/17 13:35 16:00 16:12 18:30 Temp 98.0 98.3 98.0 98.3 Pulse 80 84 Resp 18 18 B/P (MAP) 132/66 (88) 117/58 (77) Pulse Ox 94 96 95 93 O2 Delivery Room Air Room Air Room Air Room Air 12/04/17 12/04/17 12/04/17 12/04/17 19:34 19:54 19:55 20:00 Temp 98.4 98.4 Pulse 83 Resp 22 B/P (MAP) 138/51 (80) Pulse Ox 92 92 95 O2 Delivery Room Air Room Air Nasal Cannula Nasal Cannula O2 Flow Rate 1.5 2.0 12/04/17 12/04/17 12/05/17 12/05/17 20:45 23:40 03:40 07:00 Temp 98.8 98.1 98.9 98.8 98.1 98.9 Pulse 78 70 86 Resp 23 20 16 B/P (MAP) 128/56 (80) 110/49 (69) 139/60 (86) Pulse Ox 97 92 95 96 O2 Delivery Nasal Cannula Nasal Cannula Nasal Cannula O2 Flow Rate 2.0 1.0 2.0 12/05/17 12/05/17 12/05/17 12/05/17 07:25 08:31 08:32 11:00 Pulse 86 86 88 Resp 16 B/P (MAP) 139/60 139/60 128/62 (84) Pulse Ox 97 95 O2 Delivery Room Air 12/05/17 11:54 Pulse Ox 95 O2 Delivery Nasal Cannula O2 Flow Rate 1.5 Intake and Output 12/04/17 12/04/17 12/05/17 15:00 23:00 07:00 Intake Total 980 ml 1050 ml 250 ml Output Total 700 ml 600 ml Balance 280 ml 450 ml 250 ml LARRY OLIVEIRA III DO Dec 05, 2017 12:45
[2017-12-05] MEDS: ANTI-COAG MONITOR BY PHARMACY. MC PRN (12:55)
[2017-12-05] MEDS ORDERED: APIX5TAB PO (12:58)
--- NOTE | 2017-12-11 11:28 | DS ---
DATE OF DISCHARGE: 12/05/2017 ADMISSION DIAGNOSIS: Bilateral pulmonary emboli. DISCHARGE DIAGNOSIS: Resolving bilateral pulmonary emboli. HOSPITAL COURSE: The patient is a pleasant 57-year-old male presented with bilateral pulmonary emboli. He was admitted. We gave him IV heparin and started him on p.o. Eliquis. Over the next few days, he returned to his baseline. We discharged to home with close outpatient followup. DISPOSITION: Home. ACTIVITY: As tolerated. DIET: Low sodium. MEDICATIONS: Please see MRAD. TOTAL TIME ON DISCHARGE: 38 minutes. LARRY OLIVEIRA DO DR: MARY/caridad JOB#: [id number] / [id number]
== END 2017-12-05 14:01 | disposition home or self-care (01) | DRG 175 ==
LOC: ER 16:55 → UNDOADMIN 18:55 → 1 WEST ICU 18:55 → 2 NORTH 12-04 18:37
PROVIDERS: ADMIT Internal Medicine; ATTEND Internal Medicine
DX: I26.99 Other pulmonary embolism without acute cor pulmonale (principal); J18.9 Pneumonia, unspecified organism; J96.01 Acute respiratory failure with hypoxia; E87.1 Hypo-osmolality and hyponatremia; E44.1 Mild protein-calorie malnutrition; M10.9 Gout, unspecified; I10 Essential (primary) hypertension; I87.009 Postthrombotic syndrome without complications of unspecified extremity; E66.01 Morbid (severe) obesity due to excess calories; T14.8XXA Other injury of unspecified body region, initial encounter; I27.20 Pulmonary hypertension, unspecified; R91.1 Solitary pulmonary nodule; W57.XXXA Bitten or stung by nonvenomous insect and other nonvenomous arthropods, initial encounter; Y93.89 Activity, other specified; Y92.89 Other specified places as the place of occurrence of the external cause; Y99.8 Other external cause status; Z86.711 Personal history of pulmonary embolism; Z68.37 Body mass index [BMI] 37.0-37.9, adult; Z87.891 Personal history of nicotine dependence; Z86.718 Personal history of other venous thrombosis and embolism; Z83.3 Family history of diabetes mellitus
CPT/HCPCS: 36415; 71045; 71275; 80048; 80053; 81001; 82550; 83090; 83605; 83690; 83735; 83880; 84443; 84484; 85025; 85220; 85610; 86147; 87040; 87116; 87641; 93005; 93306; 93970; 94640; 94760; 96372; J1650; J2543; J3370; J7030; J7040; J7620; Q9967; 99285-25

== ENCOUNTER → 2018-01-08 | Outpatient (CLI) | payer BC ==
[~2018-01-08] MED LIST: ALLO100T PO; AMLO10TA6 PO; APIX5TAB PO; CONTRAST GIVEN. MC PRN; IOHEXOL 300 MG/ML 100ML VIAL. IV ONE; LISI1TAB5 PO
--- NOTE | 2018-01-08 10:58 | RAD ---
Chest CTA History: Pulmonary emboli Technique: After bolus of intravenous contrast, CT imaging was performed of the chest. Multiplanar reconstruction images to include MIP reconstruction images are submitted. Exposure: One or more of the following individualized dose reduction techniques were utilized for this examination: 1. Automated exposure control 2. Adjustment of the mA and/or kV according to patient size 3. Use of iterative reconstruction technique. Contrast: 75 cc Omnipaque 300 Comparison: December 01, 2017 Findings: [ ] Previously seen large bilateral pulmonary emboli are no longer visualized. Previously seen right lower lobe infiltrate has decreased, mild residual primarily at the periphery closer to the lung base. There is other mild atelectasis of the right lower lobe. There is persistent large area of infiltrative density of the left upper lobe adjacent to emphysema, area of density measuring about 4.9 cm transverse by 3.7 cm AP by 3.7 cm CC overall similar in appearance. There is no new infiltrate or evidence of new pulmonary infarct. There is trace right pleural effusion near lung base although decreased. There is no pneumothorax. Major airways are patent. Slightly prominent subcarinal node about 1.1 cm short axis dimension is stable to somewhat smaller. There is again old right clavicle fracture. Impression: 1. Previously seen pulmonary emboli are no longer present. 2. There is persistent area of abnormal infiltrative density of the left upper lobe. Malignancy is again in the differential considerations, other considerations of atypical infection such as tuberculosis or fungal disease. 3. There is trace residual right pleural effusion although decreased. There is decreased right lower lobe infiltrate. Electronically signed by: Shabbir Cintron MD (01/08/2018 10:54 AM) [facility]
== END | disposition home or self-care (01) ==
LOC: CT 09:01
PROVIDERS: ATTEND Internal Medicine Critical Care Medicine
DX: J90 Pleural effusion, not elsewhere classified (principal); S42.001D Fracture of unspecified part of right clavicle, subsequent encounter for fracture with routine healing; R91.8 Other nonspecific abnormal finding of lung field; E66.01 Morbid (severe) obesity due to excess calories; I10 Essential (primary) hypertension; E78.00 Pure hypercholesterolemia, unspecified; Z86.711 Personal history of pulmonary embolism; Z86.718 Personal history of other venous thrombosis and embolism; Z87.891 Personal history of nicotine dependence; Z68.37 Body mass index [BMI] 37.0-37.9, adult; Z82.49 Family history of ischemic heart disease and other diseases of the circulatory system; Z83.3 Family history of diabetes mellitus; X58.XXXD Exposure to other specified factors, subsequent encounter
CPT/HCPCS: 71275; Q9967

== ENCOUNTER → 2018-01-17 | Outpatient (CLI) | payer BC ==
[~2018-01-17] MED LIST changes: -CONTRAST GIVEN. MC PRN; -IOHEXOL 300 MG/ML 100ML VIAL. IV ONE
--- NOTE | 2018-01-18 17:43 | RAD ---
Examination: PET W CT SKULL TO MIDTHIGH History: Initial staging of lung cancer Comparison/Correlation: CTA of the chest 01/08/2018 Findings: 10.7 mCi F-18 FDG was intravenously administered for purposes of PET/CT exam from the skull base to the proximal thighs. Blood glucose level at the time of injection was 98 mg/dL. SUV max of the liver of up to 3.5 is noted. Uptake of radiotracer of the visualized head and neck is unremarkable. Incidental note is made of old right clavicular fracture. Intense uptake of the patient's known left upper lobe expected mass is noted with SUV max of 8.6. Left suprahilar lymph nodes are small in size without conclusive uptake. Right costophrenic sulcus nodularity which is pleural-based is present with SUV max of 3.7. These are of indeterminate significance. Small right pleural effusion is present. Uptake of radiotracer involving the abdomen is unremarkable. Subtle circumferential wall thickening of the rectum is present. Mild uptake of the rectal wall is present. This is of indeterminate significance. No surrounding enlarged lymph nodes. Calcific density is noted superficial to the gluteus minimus muscle on the right. No suspicious features. Right femoral bon is partially seen. Impression: Intense uptake corresponding to the patient's known left lung mass compatible with known lung cancer. Indeterminate right costophrenic sulcus pleural-based densities. Mild uptake. Consider annual follow-up chest CT to assess resolution. Mild circumferential thickening of the rectum with uptake. Correlate with direct visualization.
== END | disposition home or self-care (01) ==
LOC: PETSC 08:13
PROVIDERS: ATTEND Internal Medicine Critical Care Medicine
DX: R91.8 Other nonspecific abnormal finding of lung field (principal); J90 Pleural effusion, not elsewhere classified; I10 Essential (primary) hypertension; I27.20 Pulmonary hypertension, unspecified; I26.99 Other pulmonary embolism without acute cor pulmonale; E78.00 Pure hypercholesterolemia, unspecified; Z82.49 Family history of ischemic heart disease and other diseases of the circulatory system; Z83.3 Family history of diabetes mellitus; Z86.711 Personal history of pulmonary embolism; Z86.718 Personal history of other venous thrombosis and embolism; Z87.891 Personal history of nicotine dependence
CPT/HCPCS: 78815; A9552

== ENCOUNTER → 2018-01-24 | Day surgery (SDC) | payer BC ==
[~2018-01-24] MED LIST changes: +0.9 % SODIUM CHLORIDE 10 ML DISP.SYRIN. IV PRN; +ALBUTEROL SULFATE 2.5 MG/3 ML NEBU. NEB PRN; +EPINEPHrine 1 MG/ML VIAL INJ PRN; +EPINEPHrine 1 MG/ML VIAL ONE; +HYDROmorphone 2 MG/ML VIAL IV PRN; +IV RINGERS,LACTATED 1000ML 1,000 ML IV SCH; +LIDOCAINE 1% Multi-Dose 50 ML VIAL. INJ PRN; +LIDOCAINE 1% Multi-Dose 50 ML VIAL. ONE; +LIDOCAINE 1% PF 2 ML VIAL. ID PRN; +LIDOCAINE 1% PF 5 ML VIAL. ONE; +LIDOCAINE 2% VISCOUS 100 ML BOTTLE. MM PRN; +LIDOCAINE 2% VISCOUS 100 ML BOTTLE. ONE; +LIDOCAINE 4% TOPICAL 50 ML SOLUTION. MM PRN; +LIDOCAINE 4% TOPICAL 50 ML SOLUTION. ONE; +MORPHINE SULFATE 2 MG/ML VIAL. IV PRN; +ONDANSETRON PF 4 MG/2 ML VIAL. IV PRN; +PROCHLORPERAZINE 10 MG/2 ML VIAL. IV PRN; +PROPOFOL 40 ML IV ONE; +RACEPINEPHRINE 2.25% 0.5 ML NEBU. NEB ONE; +fentaNYL PF VIAL 100 MCG/2 ML VIAL IV PRN
[2018-01-24 13:01] LABS: BASO # 0.1 x10^3/uL (0.0-0.2); BASO % 1 % (0-3); EOS # 0.1 x10^3/uL (0.0-0.7); EOS % 2 % (0-3); HEMATOCRIT 38.7 % (39.0-53.0); HEMOGLOBIN 12.9 g/dL (13.0-17.5); LYMPH # 1.5 x10^3/uL (1.0-4.8); LYMPH % 21 % (24-48); MEAN CORPUSCULAR HEMOGLOBIN 30 pg (25-35); MEAN CORPUSCULAR HGB CONC 33 g/dL (31-37); MEAN CORPUSCULAR VOLUME 91 fL (79-100); MONO # 0.6 x10^3/uL (0.0-1.1); MONO % 9 % (0-9); NEUT # 4.8 x10^3uL (1.8-7.7); NEUT % 68 % (31-73); PLATELET COUNT 384 x10^3/uL (140-400); RED BLOOD COUNT 4.27 x10^6/uL (4.30-5.70); RED CELL DISTRIBUTION WIDTH 15.4 % (11.5-14.5); WHITE BLOOD COUNT 7.1 x10^3/uL (4.0-11.0)
[2018-01-24 13:10] LABS: PROTHROMBIN TIME PATIENT 13.6 SEC (11.7-14.0)
[2018-01-24 14:46] VITALS: BP 106/47
--- NOTE | 2018-01-24 14:49 | OP ---
DATE OF SURGERY: PROCEDURE: Bronchoscopy. INDICATIONS: Left upper lobe mass and isolation of MAC from sputum. DESCRIPTION OF PROCEDURE: Informed consent was obtained from the patient. All risks and benefits were explained. He agreed to proceed with the procedure. Propofol was used by anesthesia for sedation. Bronch was introduced through the right nostril. The upper airway was passed. Vocal cords were reached. No lesions seen in the vocal cords. The trachea was entered. No tracheal lesions seen. Doris was sharp. The right lung was first examined. Minimal frothy secretions seen in the right lung, in the right bronchus intermedius. All subsegments of right upper, right middle and right lower lobe were examined. No endobronchial lesions seen. No purulent secretions seen and no mucosal abnormalities seen. Bronch was introduced into the left lung. All the subsegments of left upper lobe, lingula and left lower lobe were examined. The mucosa appeared normal. No irregularities seen. No endobronchial lesions seen. Mucosa was, however, erythematous from coughing. The patient did stop Xarelto 3 days before. Bronchoalveolar lavage performed from multiple subsegments of left upper lobe and also from the lingula and sent for appropriate studies. The patient tolerated the procedure well. IMPRESSION: 1. No endobronchial lesions seen. 2. No obvious mucosal irregularities and no purulent secretions seen. 3. Bronchoalveolar lavage performed from the left upper lobe x 2 and lingula x 1 and sent for appropriate studies. The patient to follow with me in the office to discuss results. MATT HALL MD DR: MYRON/caridad JOB#: [id number] / [id number]
--- NOTE | 2018-01-25 16:08 | PATHOLOGY ---
Note [facility] Accession Number: [id number] TESTS RESULT FLAG UNITS REF RANGE LAB Clinician Provided Cytology Information No. of containers..01 Other (Miscellaneous) Source: BAL DIAGNOSIS: 02 BAL NEGATIVE FOR MALIGNANT CELLS. NORMAL BRONCHIAL CELLS AND MACROPHAGES ARE PRESENT. THIS INTERPRETATION INCLUDES EVALUATION OF A CELL BLOCK. Signed out by: 02 Ifeanyi Schmidt MD, Pathologist NPI- [id number] Performed by: Noni Murillo, Irrigation Foreman ([facility]) Gross description: 01 3ML, COLORLESS, CLEAR /LCS FLAG LEGEND: L-Low Normal,H-High Normal,LL-Alert Low,HH-Alert High <-Panic Low,>-Panic High,A-Abnormal,AA-Critical Abnormal Performed at: [address] [place] [address] Santiago Erickson MD, 02 [facility] [address] [place] [address] Ifeanyi Schmidt MD, Specimen Comment: A courtesy copy of this report has been sent to Specimen Comment: [phone]. Specimen Comment: Report sent to Specimen Comment: A duplicate report has been generated due to demographic updates. Performed at: [address] [place] [address] [address], [place], [place] [id number] MD Santiago Erickson MD Phone: [phone]
== END | disposition home or self-care (01) ==
LOC: SURG 11:56
PROVIDERS: ATTEND Internal Medicine Critical Care Medicine
DX: J98.4 Other disorders of lung (principal); I10 Essential (primary) hypertension; Z87.891 Personal history of nicotine dependence; Z90.49 Acquired absence of other specified parts of digestive tract; Z98.890 Other specified postprocedural states
CPT/HCPCS: 31624; 36415; 85025; 85610; 85730; 87070; 87102; 87116; 87205; 88112; 94640; J2704; J7613; 31622; J0171

== ENCOUNTER → 2018-03-25 | Outpatient (CLI) | payer BC ==
[2018-01-24 14:46] VITALS: BP 106/47
[~2018-03-25] MED LIST changes: -0.9 % SODIUM CHLORIDE 10 ML DISP.SYRIN. IV PRN; -ALBUTEROL SULFATE 2.5 MG/3 ML NEBU. NEB PRN; -EPINEPHrine 1 MG/ML VIAL INJ PRN; -EPINEPHrine 1 MG/ML VIAL ONE; -HYDROmorphone 2 MG/ML VIAL IV PRN; -IV RINGERS,LACTATED 1000ML 1,000 ML IV SCH; -LIDOCAINE 1% Multi-Dose 50 ML VIAL. INJ PRN; -LIDOCAINE 1% Multi-Dose 50 ML VIAL. ONE; -LIDOCAINE 1% PF 2 ML VIAL. ID PRN; -LIDOCAINE 1% PF 5 ML VIAL. ONE; -LIDOCAINE 2% VISCOUS 100 ML BOTTLE. MM PRN; -LIDOCAINE 2% VISCOUS 100 ML BOTTLE. ONE; -LIDOCAINE 4% TOPICAL 50 ML SOLUTION. MM PRN; -LIDOCAINE 4% TOPICAL 50 ML SOLUTION. ONE; -MORPHINE SULFATE 2 MG/ML VIAL. IV PRN; -ONDANSETRON PF 4 MG/2 ML VIAL. IV PRN; -PROCHLORPERAZINE 10 MG/2 ML VIAL. IV PRN; -PROPOFOL 40 ML IV ONE; -RACEPINEPHRINE 2.25% 0.5 ML NEBU. NEB ONE; -fentaNYL PF VIAL 100 MCG/2 ML VIAL IV PRN
--- NOTE | 2018-03-25 16:19 | RAD ---
CT chest without contrast 03/25/2018 CLINICAL INDICATION: Pulmonary nodule follow-up. COMPARISON: CTA chest 01/08/2018, CT chest December 01, 2017. TECHNIQUE: Multiple CT images of the chest were obtained without contrast. *One or more of the following individualized dose reduction techniques were utilized for this examination: 1. Automated exposure control. 2. Adjustment of the mA and/or kV according to patient size. 3. Use of iterative reconstruction technique. FINDINGS: Heart size normal without significant pericardial effusion. The thoracic aorta is normal in caliber. No axillary lymphadenopathy. Stable mildly enlarged subcarinal lymph node measuring 1.1 cm short axis series 4/image 32, previously 1.1 cm. No obvious hilar lymphadenopathy, though evaluation is limited in the absence of intravenous contrast. Stable cavitary mass with associated spiculated soft tissue component along the inferior margins. Overall size of the cavitation has not significant changed measuring 6.4 cm AP x 5.6 cm TV x 4.7 cm CC series 6/image 100, series 9/image 24, previously 6.8 x 5.3 x 5.1 cm when measuring a similar fashion. The soft tissue component most prominent inferiorly and also has not significant change in overall size measuring up to 5 cm TV series 6/image 116. There is mild subpleural scarring or atelectasis in the basilar right lower lobe with a scant right pleural fluid. No left pleural effusion or pneumothorax. No new or enlarging noncalcified pulmonary nodules. There are no destructive osseous lesions. Limited images of the upper abdomen: Grossly unremarkable. IMPRESSION: 1. No significant change in size of cavitary mass with a significant spiculated soft tissue component. Differential considerations remain the same including cavitary malignancy, cavitary infection and atypical infection and with fungal and mycobacterial not excluded (tuberculosis is considered). 2. Stable mild subcarinal lymphadenopathy, indeterminate between reactive and alejandro metastatic disease. 3. No new or enlarging noncalcified pulmonary nodules. Electronically signed by: Arash Cobian MD (03/25/2018 4:15 PM) [id number]
== END | disposition home or self-care (01) ==
LOC: CT 10:17
PROVIDERS: ATTEND Internal Medicine Critical Care Medicine
DX: R59.1 Generalized enlarged lymph nodes (principal); R91.8 Other nonspecific abnormal finding of lung field
CPT/HCPCS: 71250

== ENCOUNTER 2018-04-04 07:02 | Outpatient (CLI) | payer BC ==
[~2018-04-04] VITALS: Ht 190.5 cm; Wt 124.7 kg
[2018-04-04] VITALS (14 sets, daily range): BP systolic 85–126; BP diastolic 45–68
[2018-04-04] MEDS ORDERED: MIDAZOLAM HCL/PF 2 MG/2 ML VIAL. ONE (07:52)
[2018-04-04] MEDS ORDERED: FLUMAZENIL 0.5 MG/5 ML VIAL. IV ONE (07:52)
[2018-04-04] MEDS ORDERED: NALOXONE 0.4 MG/ML VIAL. ONE (07:52)
[2018-04-04] MEDS ORDERED: fentaNYL PF VIAL 100 MCG/2 ML VIAL ONE (07:52)
[2018-04-04] MEDS ORDERED: LIDOCAINE WITH 8.4% SOD BICARB 3 ML DISP.SYRIN. ONE ×2 (08:03→08:29)
[2018-04-04 08:10] LABS: BASO # 0.1 x10^3/uL (0.0-0.2); BASO % 1 % (0-3); EOS # 0.1 x10^3/uL (0.0-0.7); EOS % 2 % (0-3); HEMATOCRIT 41.9 % (39.0-53.0); LYMPH # 1.1 x10^3/uL (1.0-4.8); LYMPH % 21 % (24-48); MEAN CORPUSCULAR HEMOGLOBIN 29 pg (25-35); MEAN CORPUSCULAR HGB CONC 33 g/dL (31-37); MEAN CORPUSCULAR VOLUME 86 fL (79-100); MONO # 0.6 x10^3/uL (0.0-1.1); MONO % 11 % (0-9); NEUT # 3.5 x10^3uL (1.8-7.7); NEUT % 65 % (31-73); PLATELET COUNT 337 x10^3/uL (140-400); RED BLOOD COUNT 4.88 x10^6/uL (4.30-5.70); RED CELL DISTRIBUTION WIDTH 14.4 % (11.5-14.5); WHITE BLOOD COUNT 5.3 x10^3/uL (4.0-11.0)
[2018-04-04 08:16] LABS: PROTHROMBIN TIME PATIENT 13.5 SEC (11.7-14.0)
[2018-04-04] MEDS ORDERED: MIDAZOLAM HCL/PF 2 MG/2 ML VIAL. IV ONE (09:15)
[2018-04-04] MEDS ORDERED: LIDOCAINE WITH 8.4% SOD BICARB 3 ML DISP.SYRIN. IJ ONE (09:15)
[2018-04-04] MEDS ORDERED: fentaNYL PF VIAL 100 MCG/2 ML VIAL IV ONE (09:15)
--- NOTE | 2018-04-04 12:36 | RAD ---
Indication:POST LUNG BIOPSY TECHNIQUE:Portable AP chest X-ray COMPARISON:CT chest from 03/25/2018 FINDINGS: Heart is normal in size. 4.0 x 4.0 cm patchy opacity is seen in the left midlung zone also seen on CT chest from 03/25/2018. No pneumothorax or pleural effusion. Visualized bony thorax within normal limits. IMPRESSION: Patchy opacity in the left upper lobe. Please see report on CT chest from 03/25/2018. No pneumothorax. Electronically signed by: Leodan Villegas DO (04/04/2018 12:33 PM) [facility]
--- NOTE | 2018-04-04 15:09 | RAD ---
CT-guided biopsy, left upper lobe partially cavitary consolidative lesion 04/04/2018 Indication: 50-year-old man of the left upper lobe partially cavitary consolidative lesion. Lesion is PET avid based on PET/CT 01/17/2018. Findings remain concerning for malignancy. Infectious process is also a differential consideration. Discussion: The risks and benefits of the procedure were discussed the patient. Informed consent was obtained. Timeout procedure was performed. The anterior chest was prepped and draped using sterile technique. CT imaging redemonstrates a partially cavitary left upper lobe lesion. 1% lidocaine was administered for local anesthesia. A 17-gauge needle was advanced into the solid portion of the consolidative lesion. Multiple core biopsy samples were obtained which were placed in formalin. Samples for culture were also obtained. The needle was removed. Manual pressure was held. Sterile repeat CT imaging demonstrates no pneumothorax. Only mild perilesional hemorrhage is seen. Patient tolerated the procedure well and was transferred to the post recovery unit in stable condition. The procedures performed under conscious sedation including continuous cardiopulmonary monitoring via a dedicated sedation nurse. [id number]-[id number] sedation time: 30 minutes. Impression: CT-guided biopsy, partially cavitary consolidative lesion in the left upper lobe. PQRS Compliance Statement: One or more of the following individualized dose reduction techniques were utilized for this examination: 1. Automated exposure control 2. Adjustment of the mA and/or kV according to patient size 3. Use of iterative reconstruction technique
--- NOTE | 2018-04-09 09:09 | PATHOLOGY ---
[facility] Accession Number: [id number] . 01 Material submitted: . LEFT LUNG CORE . 01 Clinical history: . Left lung mass . 02 Diagnosis: Lung tissue, left lung mass, needle biopsy: - ADENOSQUAMOUS CARCINOMA, AQJTUZEHOC-CY-[id number] DIFFERENTIATED, SEE COMMENT. . (JPM:mml; 04/05/18) [facility]/04/08/2018 . 02 Comment: Sections of the left lung mass needle biopsy show replacement of lung parenchyma by a malignant epithelial neoplasm. The malignant cells are present in solid nests and focally form acinar structures which irregularly infiltrate a reactive desmoplastic stroma. The malignant cells within the solid nests predominantly have a polygonal, squamoid appearance and have pale eosinophilic cytoplasm and possess enlarged moderately pleomorphic nuclei containing prominent nucleoli. There are mucin vacuoles present within some of the solid cell nests. There are mitotic figures present. A panel of immunoperoxidase stains is obtained on block A1 and yields the following results: . Cytokeratin 7: Tumor cells positive Cytokeratin 20: Tumor cells negative Cytokeratin 5/6: Substantial portion of tumor cells positive P40: Substantial portion of tumor cells positive Napsin A: Tumor cells focally positive TTF-1: Tumor cells focally positive . 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 The case is also examined by Dr. Hickey, who concurs with the diagnosis. . Preliminary results were discussed with Dr. Bowser on 04/05/18 at 3:40 p.m. . (JPM:mml; 04/05/18) . 02 Electronically signed: . Ifeanyi Schmidt MD, Pathologist NPI- [id number] . 01 Gross description: . The specimen is received in formalin, labeled "Gavin, Jaylon, lung BX" and additionally labeled on the requisition as, "left" and consists of 2 delicate needle cores of guy tissue measuring 0.7 cm and 0.9 cm in length and 0.1 cm each in diameter. They are entirely submitted in A1. (SDY; 04/04/2018) SYU/SYU . 02 Pathologist provided ICD-10: C34.92 . 02 CPT . 255838, H90339, C11685 Specimen Comment: A courtesy copy of this report has been sent to Specimen Comment: [phone], , . Specimen Comment: Report sent to ,DR BOWSER / DR SCHMITZ Specimen Comment: A duplicate report has been generated due to demographic updates. Performed at: 01 [facility] [address] [facility] [address], [place] [id number] MD Santiago Erickson MD Phone: [phone] Performed at: 02 [facility] [address] [place], [place] [id number] MD Ifeanyi Schmidt MD Phone: [phone]
== END 2018-04-04 12:02 | disposition home or self-care (01) ==
LOC: INTRAD 07:02
PROVIDERS: ATTEND Internal Medicine Critical Care Medicine
DX: C34.12 Malignant neoplasm of upper lobe, left bronchus or lung (principal); Z79.899 Other long term (current) drug therapy; Z79.01 Long term (current) use of anticoagulants
CPT/HCPCS: 32405; 36415; 71045; 77012; 85025; 85610; 87071; 87075; 87102; 99152; 99153; J2250; J3010; 88305; 88341; 88342

== ENCOUNTER → 2018-04-18 | Outpatient (CLI) | payer BC ==
[2018-04-04 11:30] VITALS: BP 119/50
--- NOTE | 2018-04-18 13:22 | RAD ---
FDG tumor localization scan, PET/CT, 04/18/2018: History: Lung cancer Following IV injection of 13.2 mCi of 18 F-FDG, imaging was performed from the skull base to the proximal thighs. The noncontrast CT component was performed for attenuation correction and anatomic localization purposes rather than for primary diagnosis. The patient's blood glucose level at time of injection was 89 MG/DL. Comparison is made to a study from 01/17/2018. Physiologic activity is present in the neck. No hypermetabolic neck mass is seen. There is a persistent irregular cavitary process in the left upper lobe. It measures approximate 6.6 x 5.3 cm in greatest diameter on the axial scans, similar to on the previous study of 01/17/2018. The CT component suggests a slight increase in the soft tissue component. It is hypermetabolic with a maximum SUV of 18.5. This compares to a value of 14.3 on the previous study. There is slightly greater hypermetabolic activity within the anterior aspect of this process on the current study when compared to the previous exam, best demonstrated on the 3-D images. Activity at both akhil is similar to that of the background mediastinal uptake. No definite hypermetabolic mediastinal or hilar adenopathy is seen. No additional hypermetabolic pulmonary abnormality is evident. Small parenchymal opacities abutting the pleura in the right lung base posteriorly on the previous study have largely resolved. This probably represented atelectasis and/or scarring. Normal GI tract and urinary tract activity is present in the abdomen and pelvis. No hypermetabolic abdominal or pelvic lesion is seen. IMPRESSION: 1. The cavitary left upper lobe neoplasm has progressed slightly since 01/17/2018. 2. No FDG PET findings to suggest distant metastatic disease.
== END | disposition home or self-care (01) ==
LOC: PETSC 09:02
PROVIDERS: ATTEND Internal Medicine Critical Care Medicine
DX: R91.8 Other nonspecific abnormal finding of lung field (principal); Z87.891 Personal history of nicotine dependence
CPT/HCPCS: 78815; A9552

== ENCOUNTER → 2018-05-15 | Outpatient (CLI) | payer BC ==
[2018-04-04 11:30] VITALS: BP 119/50
[2018-05-15 15:11] LABS: BASO # 0.1 x10^3/uL (0.0-0.2); BASO % 1 % (0-3); EOS % 0 % (0-3); HEMATOCRIT 42.5 % (39.0-53.0); HEMOGLOBIN 13.8 g/dL (13.0-17.5); LYMPH # 1.3 x10^3/uL (1.0-4.8); LYMPH % 18 % (24-48); MEAN CORPUSCULAR HEMOGLOBIN 28 pg (25-35); MEAN CORPUSCULAR HGB CONC 32 g/dL (31-37); MEAN CORPUSCULAR VOLUME 85 fL (79-100); MONO # 0.7 x10^3/uL (0.0-1.1); MONO % 9 % (0-9); NEUT # 5.3 x10^3uL (1.8-7.7); NEUT % 72 % (31-73); PLATELET COUNT 348 x10^3/uL (140-400); RED BLOOD COUNT 5.02 x10^6/uL (4.30-5.70); RED CELL DISTRIBUTION WIDTH 15.2 % (11.5-14.5); WHITE BLOOD COUNT 7.4 x10^3/uL (4.0-11.0)
[2018-05-15 15:21] LABS: PROTHROMBIN TIME PATIENT 15.1 SEC (11.7-14.0)
[2018-05-15 15:28] LABS: ALBUMIN 3.2 g/dL (3.4-5.0); ALBUMIN/GLOBULIN RATIO 0.8 (1.0-1.7); CALCIUM 10.1 mg/dL (8.5-10.1); CREATININE 1.3 mg/dL (0.7-1.3); GFR 56.7; POTASSIUM 4.5 mmol/L (3.5-5.1); TOTAL BILIRUBIN 0.3 mg/dL (0.2-1.0)
== END | disposition home or self-care (01) ==
LOC: SURGPAT 14:08
PROVIDERS: ATTEND Thoracic Surgery (Cardiothoracic Vascular Surgery)
DX: Z01.818 Encounter for other preprocedural examination (principal)
CPT/HCPCS: 36415; 80053; 85025; 85610; 85730

== ENCOUNTER → 2018-05-15 | Outpatient (CLI) | payer BC ==
[2018-04-04 11:30] VITALS: BP 119/50
[~2018-05-15] MED LIST changes: +GADOBUTROL 10 MMOL/10 ML VIAL IV ONE
--- NOTE | 2018-05-15 14:24 | RAD ---
MRI Brain with and without contrast History: New diagnosis of lung cancer Technique: Multiplanar, multi sequential pre and postcontrast MR imaging was performed of the brain. Comparison: None Findings: There is no evidence of recent infarct or cytotoxic edema. Ventricular size is proportionate to the sulcal spaces, mild prominence of the supratentorial subarachnoid spaces greater near the vertex.There is no significant midline shift, intraaxial mass effect, or focal abnormal extra-axial fluid collection. There is no significant signal abnormality of the brain parenchyma. There is no nodular parenchymal or leptomeningeal enhancement. There is preservation of the major intracranial flow-voids at the skull base. The cerebellar tonsils are normal in location. There is no significant abnormality of the pineal gland or pituitary gland. Frontal sinus is not significantly pneumatized. There is very minimal patchy bilateral ethmoid mucosal thickening. There is nonspecific mild increased CSF signal of the optic nerve sheaths bilaterally. The mastoid air cells are aerated. There is preserved marrow signal of the clivus. Impression: 1. There is no abnormal intracranial enhancement. Electronically signed by: Shabbir Cintron MD (05/15/2018 2:19 PM) [facility]
== END | disposition home or self-care (01) ==
LOC: MRI 15:14
PROVIDERS: ATTEND Internal Medicine Hematology & Oncology
DX: C34.92 Malignant neoplasm of unspecified part of left bronchus or lung (principal)
CPT/HCPCS: 70553; A9585

== ENCOUNTER → 2018-05-15 | Outpatient (CLI) | payer BC ==
[2018-04-04 11:30] VITALS: BP 119/50
[~2018-05-15] MED LIST changes: -GADOBUTROL 10 MMOL/10 ML VIAL IV ONE
--- NOTE | 2018-05-15 11:51 | [facility] ---
Bilateral lower extremity venous doppler ultrasound History: Previous DVT in the right leg many years ago, history of left leg DVT November 2017 Comparison: December 02, 2017 Findings: Multiple grayscale, color, and duplex spectral analysis sonographic images were acquired of the bilateral lower extremity veins to evaluate for the presence of DVT. Previously seen occlusive thrombus in the left popliteal vein has resolved. No acute appearing deep venous thrombosis is identified of the visualized lower extremity veins bilaterally, normal phasicity. There is similar appearance of wall thickening of the right popliteal vein likely due to sequela of old thrombus. Proximal greater saphenous veins are patent bilaterally with normal color flow. There is color flow demonstrated of the proximal profunda femoris veins bilaterally. Impression: 1. Previously seen left lower extremity thrombus has resolved, no acute appearing deep venous thrombosis of either lower extremity. There is unchanged appearance of chronic wall thickening of the right popliteal vein likely related to old/chronic thrombus. Electronically signed by: Shabbir Cintron MD (05/15/2018 11:46 AM) [email or web address]
== END | disposition home or self-care (01) ==
LOC: KCIC US 10:35
PROVIDERS: ATTEND Internal Medicine Critical Care Medicine
DX: Z09 Encounter for follow-up examination after completed treatment for conditions other than malignant neoplasm (principal); Z86.718 Personal history of other venous thrombosis and embolism
CPT/HCPCS: 93970

== ENCOUNTER → 2018-05-16 | Outpatient (CLI) | payer BC ==
[2018-04-04 11:30] VITALS: BP 119/50
[~2018-05-16] MED LIST changes: +REGADENOSON 0.4 MG/5 ML DISP.SYRIN. IV ONE
--- NOTE | 2018-05-16 13:48 | RAD ---
MR#: [id number] Date of Study: 05/16/2018 Ordering Physician: DOMINGA YATES, Referring Physician: LOIDA PILLAI Tech: RT Mary Gonzalez) (N) APPROVED REPORT Test Type: Pharmacological Stress Nurse/Tech: Zonia Unger R.N. Test Indications: preop, new BBB Cardiac History: htn Medications: See Electronic Medical Record Medical History: See Electronic Medical Record Resting ECG: SR with RBBB. LAE Resting Heart Rate: 59 bpm Resting Blood Pressure: 127/51mmHg Pretest Chest Pain: No chest pain Nurse/Tech Notes S1S2, lungs CTA Consent: The procedure was explained to the patient in lay terms. Informed consent was witnessed. Jose eout was entered into [employer]. History and Stress Test performed by RT Mary Juarez) (N) Pharm. Details Pharmacologic stress testing was performed using 0.4mg per 5ml of regadenoson given intravenously ove r 7-10 seconds. Stress Symptoms No chest pain or symptoms. POST EXERCISE Reason for Termination: Infusion complete Max HR: 84 bpm Max Blood Pressure: 146/47mmHg Blood Pressure response to exercise: Normal blood pressure response during stress. Heart Rate response to exercise: wnl Chest Pain: No. Arrhythmia: No. ST Change: No. INTERPRETATION Stress EKG Conclusion: No evidence of stress induced EKG changes. Imaging Protocol IMAGE PROTOCOL: Rest Tc-99m/stress Tc-99m 1 day Rest: Stress: Viability: Radiopharm.Tc99m BekpcjpqdJq68q Sestamibi Ahbo39xSm 33.3mCi Duration 13min. 13min. Img Date 05/16/2018 05/16/2018 Inj-Img Lydj20sim. 75min. Rest Admin Site:IV - Left WristAdministrator:RT Mary Juarez)(N) Stress Admin Site: IV - Left WristAdministrator: JAMAL Bhandari STRESS DATA End Diast. Vol.112.0mlLVEDV index BSA46.0ml End Syst. Vol.27.0mlLVESV index BSA11.0ml Myocardial Ossl581.0gEject. Duweavaf29.0% Stress Scores Regional WT0.00Summed WT0.00 Regional WM0.00Summed WM0.00 The rest and stress images show normal perfusion, normal contraction and thickening. LV Perf. Quant 17 Seg. SSS0.00 17 Seg. SRS5.00 17 Seg. SDS0.00 Stress Defect Extent (% LAD)0.00Rest Defect Extent (% LAD)6.30Rev. Defect Extent (% LAD)0.00 Stress Defect Extent (% LCX) 0.00Rest Defect Extent (% LCX)0.00Rev. Defect Extent (% LCX)0.00 Stress Defect Extent (% RCA)0.00Rest Defect Extent (% RCA)7.80Rev. Defect Extent (% RCA)0.00 Stress Defect Extent (% EULOGIO)0.00Rest Defect Extent (% EULOGIO)4.60Rev. Defect Extent (% EULOGIO)0.00 Conclusion 1. No evidence of EKG changes with stress testing. 2. Normal perfusion at stress/rest. 3. Subdiaphragmatic attenuation artifact on the rest images. 4. Low risk study. 5. EF > 60%. Signed by : Atif López, Electronically Approved : 05/16/2018 13:46:00
== END | disposition home or self-care (01) ==
LOC: NM 09:28
PROVIDERS: ATTEND Internal Medicine Cardiovascular Disease
DX: R94.31 Abnormal electrocardiogram [ECG] [EKG] (principal)
CPT/HCPCS: 78452; 93017; 96374; A9500; J2785

== ENCOUNTER → 2018-05-16 | Outpatient (CLI) | payer BC ==
[2018-04-04 11:30] VITALS: BP 119/50
[~2018-05-16] MED LIST changes: -REGADENOSON 0.4 MG/5 ML DISP.SYRIN. IV ONE
== END | disposition home or self-care (01) ==
LOC: OPS 09:17
PROVIDERS: ATTEND Thoracic Surgery (Cardiothoracic Vascular Surgery)
DX: Z01.818 Encounter for other preprocedural examination (principal)
CPT/HCPCS: 36415; 87641

== ENCOUNTER 2018-05-22 06:54 | Inpatient (IN) | payer BC ==
--- NOTE | 2018-05-21 15:11 | PDOC1 ---
History and Physical Date of Admission Date of Admission DATE: 05/22/18 TIME: 07:30 Identification/Chief Complaint Chief Complaint Lung Ca Source Source: Chart review, Patient History of Present Illness History of Present Illness The patient is a 58-year-old male who presented in November 2017 with shortness of breath and pleuritic chest pain. He was found to have a pulmonary embolus at that time. Additionally the CT demonstrated a cavitary lesion in the left upper lobe. Follow-up CT of the chest 4 months later showed a persistent cavitary lesion. 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 The cavitary lesion measures 6.5 x 5.5 cm. He went on to have a PET/CT which showed that the cavitary lesion was FDG avid with an SUV of 18.5. There was no other activity in the mediastinum or distally. His PFTs are good with an FEV1 of 77% and a DLCO of 75%. He currently denies shortness of breath, chest pain, cough, weight loss. He is on Eliquis which he stopped 3 days ago He has had a CT confirming resolution of his pulmonary emboli. He is here today for an elective left upper lobectomy and mediastinal lymphadenectomy. Past Medical History Cardiovascular: HTN, Hyperlipidemia Pulmonary: Pulmonary embolus, Other ([facility]) GI: No pertinent hx Heme/Onc: No pertinent hx Hepatobiliary: No pertinent hx Psych: No pertinent hx Rheumatologic: No pertinent hx Infectious disease: No pertinent hx ENT: No pertinent hx Renal/: No pertinent hx Endocrine: No pertinent hx Dermatology: No pertinent hx Past Surgical History Past Surgical History: Other (Left ankle and Rt femur ORIF) Family History Family History: No Significant Social History Smoke: No ALCOHOL: none Drugs: None Current Medications Current Medications Current Medications Ondansetron HCl (Zofran) 4 mg PRN Q6HRS PRN IV NAUSEA/VOMITING; Start 05/22/18 at 07:00; Stop 05/23/18 at 06:59 Fentanyl Citrate (Fentanyl 2ml Vial) 25 mcg PRN Q5MIN PRN IV MILD PAIN; Start 05/22/18 at 07:00; Stop 05/23/18 at 06:59 Fentanyl Citrate (Fentanyl 2ml Vial) 50 mcg PRN Q5MIN PRN IV MODERATE TO SEVERE PAIN; Start 05/22/18 at 07:00; Stop 05/23/18 at 06:59 Morphine Sulfate (Morphine Sulfate) 1 mg PRN Q10MIN PRN IV SEVERE PAIN; Start 05/22/18 at 07:00; Stop 05/23/18 at 06:59 Ringer's Solution 1,000 ml @ 30 mls/hr Q24H IV ; Start 05/22/18 at 07:00; Stop 05/22/18 at 18:59 Lidocaine HCl (Xylocaine-Mpf 1% 2ml Vial) 2 ml PRN 1X PRN ID IV START; Start at 07:00; Stop 05/23/18 at 06:59 Hydromorphone HCl (Dilaudid) 0.5 mg PRN Q10MIN PRN IV SEV PAIN, Second choice; Start 05/22/18 at 07:00; Stop 05/23/18 at 06:59 Prochlorperazine Edisylate (Compazine) 5 mg PACU PRN PRN IV NAUSEA, MRX1; Start 05/22/18 at 07:00; Stop 05/23/18 at 06:59 Active Scripts Active Reported Eliquis (Apixaban) 5 Mg Tablet 5 Mg PO BID Resume tomomorrow 04/05 Amlodipine Besylate 10 Mg Tablet 10 Mg PO DAILY Lisinopril-Hctz 20-12.5 Mg Tab (Lisinopril/Hydrochlorothiazide) 1 Each Tablet 1 Tab PO DAILY Allopurinol 100 Mg Tablet 100 Mg PO BID Allergies Allergies: Coded Allergies: No Known Drug Allergies (Unverified , 05/15/18) ROS General: No: Chills, Night Sweats, Fatigue, Malaise, Appetite PSYCHOLOGICAL ROS: No: Anxiety, Behavioral Disorder, Concentration difficultie , Decreased libido, Depression, Disorientation, Hallucinations, Hostility, Irritablity, Memory difficulties, Mood Swings, Obsessive thoughts, Physical abuse, Sexual abuse, Sleep disturbances, Suicidal ideation Eyes: No Blurry vision, No Decreased vision, No Double vision, No Dry eyes, No Excessive tearing, No Eye Pain, No Itchy Eyes, No Loss of vision, No Photophobia , No Scotomata, No Uses contacts, No Uses glasses HEENT: No: Heacaches, Visual Changes, Hearing change, Nasal congestion, Nasal discharge, Oral lesions, Sinus pain, Sore Throat, Epistaxis, Sneezing, Snoring, Tinnitus, Vertigo, Vocal changes ALLERGY AND IMMUNOLOGY: No: Hives, Insect Bite Sensitivity, Itchy/Watery Eyes, Nasal Congestion, Post Nasal Drip, Seasonal Allergies Hematological and Lymphatic: No: Bleeding Problems, Blood Clots, Blood Transfusions, Brusing, Night Sweats, Pallor, Swollen Lymph Nodes Respiratory: No: Cough, Hemoptysis, Orthopnea, Pleuritic Pain, Shortness of breath, SOB with excertion, Sputum Changes, Stridor, Tachypnea, Wheezing Cardiovascular: No Chest Pain, No Palpitations, No Orthopnea, No Paroxysmal Noc. Dyspnea, No Edema, No Lt Headedness Gastrointestinal: No Nausea, No Vomiting, No Abdominal Pain, No Diarrhea, No Constipation, No Melena, No Hematochezia Genitourinary: No Dysuria, No Frequency, No Incontinence, No Hematuria, No Retention, No Discharge, No Urgency, No Pain, No Flank Pain Musculoskeletal: No Gait Disturbance, No Joint Pain, No Joint Stiffness, No Joint Swelling, No Muscle Pain, No Muscular Weakness, No Pain In:, No Swelling In: Neurological: No Behavorial Changes, No Bowel/Bladder ControlChng, No Confusion , No Dizziness, No Gait Disturbance, No Headaches, No Impaired Coord/balance, No Memory Loss, No Numbness/Tingling, No Seizures, No Speech Problems, No Tremors, No Visual Changes, No Weakness Skin: No Dry Skin, No Eczema, No Hair Changes, No Lumps, No Mole Changes, No Mottling, No Nail Changes, No Pruritus, No Rash, No Skin Lesion Changes, No Acne Physical Exam General: Alert, Oriented X3, No acute distress HEENT: Atraumatic, PERRLA Lungs: Clear to auscultation Abdomen: Normal bowel sounds, Soft, No tenderness Rectal Exam: deferred Extremities: No edema Skin: No significant lesion Neuro: Normal gait, Normal speech, Strength at 5/5 X4 ext, Normal tone, Sensation intact, Cranial nerves 3-12 NL, Reflexes 2+ Psych/Mental Status: Mental status NL Vitals Vitals Vital Signs Date Time Temp Pulse Resp B/P (MAP) Pulse Ox O2 Delivery O2 Flow Rate FiO2 05/15/18 14:36 98.0 64 20 98 98.0 Images Images Heart size normal without significant pericardial effusion. The thoracic aorta is normal in caliber. No axillary lymphadenopathy. Stable mildly enlarged subcarinal lymph node measuring 1.1 cm short axis series 4/image 32, previously 1.1 cm. No obvious hilar lymphadenopathy, though evaluation is limited in the absence of intravenous contrast. Stable cavitary mass with associated spiculated soft tissue component along the inferior margins. Overall size of the cavitation has not significant changed measuring 6.4 cm AP x 5.6 cm TV x 4.7 cm CC series 6/image 100, series 9/image 24, previously 6.8 x 5.3 x 5.1 cm when measuring a similar fashion. The soft tissue component most prominent inferiorly and also has not significant change in overall size measuring up to 5 cm TV series 6/image 116. There is mild subpleural scarring or atelectasis in the basilar right lower lobe with a scant right pleural fluid. No left pleural effusion or pneumothorax. No new or enlarging noncalcified pulmonary nodules. There are no destructive osseous lesions. Limited images of the upper abdomen: Grossly unremarkable. 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 PET/CT showed that the left upper lobe cavitary lesion is FDG avid with an SUV of 18.5, but without any activity in the mediastinum or distally. He has reasonable PFTs with an FEV1 of 77% and a DLCO of 75%. He currently denies any symptoms. The patient is certainly a candidate for a left upper lobectomy and mediastinal lymphadenectomy. The risks which include but are not limited to mortality 1%, ventilator dependence 5%, pneumonia 5-10%, infection 5%, arrhythmias 20%, prolonged air leak 10%, were explained to the patient who agrees to proceed. Proceed with left upper lobectomy and mediastinal lymphadenectomy. NAMRATA WYATT MD May 21, 2018 15:11
[~2018-05-22] VITALS: Ht 188 cm; Wt 132.5 kg
[2018-05-22] VITALS (12 sets, daily range): BP systolic 97–156; BP diastolic 36–55
[~2018-05-22 06:54] MED LIST changes: -AMLO10TA6 PO; +AMLO10TA8 PO
[2018-05-22] MEDS ORDERED: ONDANSETRON PF 4 MG/2 ML VIAL. IV PRN ×2 (07:00→14:45)
[2018-05-22] MEDS ORDERED: HYDROmorphone 2 MG/ML VIAL IV PRN (07:00)
[2018-05-22] MEDS ORDERED: PROCHLORPERAZINE 10 MG/2 ML VIAL. IV PRN ×2 (07:00→14:45)
[2018-05-22] MEDS ORDERED: MORPHINE SULFATE 4 MG/ML VIAL. IV PRN ×2 (07:00→14:45)
[2018-05-22] MEDS ORDERED: LIDOCAINE 1% PF 2 ML VIAL. ID PRN (07:00)
[2018-05-22] MEDS ORDERED: IV RINGERS,LACTATED 1000ML 1,000 ML IV SCH (07:00)
[2018-05-22] MEDS ORDERED: fentaNYL PF VIAL 100 MCG/2 ML VIAL IV PRN ×2 (07:00)
[2018-05-22] MEDS ORDERED: SURGICEL HEMOSTAT 4X8 EACH. ONE ×2 (07:38)
[2018-05-22] MEDS ORDERED: ceFAZolin 2GM PREMIX 2 GM/50 ML BAG IV ONE (08:00)
[2018-05-22] MEDS ORDERED: ROCURONIUM 100 MG/10 ML VIAL. ONE ×2 (08:41→11:42)
[2018-05-22] MEDS ORDERED: LIDOCAINE 2% PF 5 ML VIAL. ONE ×2 (08:41→14:08)
[2018-05-22] MEDS ORDERED: ONDANSETRON PF 4 MG/2 ML VIAL. ONE (08:41)
[2018-05-22] MEDS ORDERED: DEXAMETHASONE SOD PHOS 20 MG/5 ML VIAL. ONE (08:41)
[2018-05-22] MEDS ORDERED: PROPOFOL 20 ML IV ONE ×2 (08:41→11:43)
[2018-05-22] MEDS ORDERED: MIDAZOLAM HCL/PF 2 MG/2 ML VIAL. ONE (08:42)
[2018-05-22] MEDS ORDERED: fentaNYL PF VIAL 250 MCG/5 ML VIAL ONE (08:46)
[2018-05-22] MEDS ORDERED: GLYCOPYRROLATE 1 MG/5 ML VIAL. ONE (08:47)
[2018-05-22] MEDS ORDERED: ePHEDrine PF IN SALINE 50 MG/5 ML DISP.SYRIN IV ONE (08:47)
[2018-05-22] MEDS ORDERED: SUCCINYLCHOLINE 200 MG/10 ML VIAL. ONE (09:45)
[2018-05-22] MEDS ORDERED: BUPIVACAINE MPF 0.5% 30 ML VIAL. ONE (10:53)
[2018-05-22] MEDS ORDERED: BUPIVACAINE MPF 0.25% 10 ML VIAL. ONE (10:54)
[2018-05-22] MEDS ORDERED: PHENYLEPHRINE in 0.9% NACL PF 1 MG/10 ML SYRINGE. IV ONE (11:43)
--- NOTE | 2018-05-22 14:24 | PDOC ---
BRIEF OPERATIVE NOTE Date: May 22, 2018 Pre-Op Diagnosis Left lung cancer Post-Op Diagnosis Left lung cancer Procedure Performed Flexible bronchoscopy Left posterolateral thoracotomy, left upper lobectomy and mediastinal lymphadenectomy Surgeon Namrata Bell MD FACS Director Hematology SARAH Galo Anesthesiologist Dr Quarles Anesthesia Type: General Blood Loss 200 mls IV Fluid 100 mls Urine Output 500 mls Specimens Obtained Left upper lobe Levels 5,6, 9, 10 and 11 lymph nodes Findings Large 5x6cm left upper lobe mass Several anthracotic mediastinal and hilar lymph nodes harvested Bronchoscopy negative for intrabronchial pathology Single pulmonary vein with upper and lower lobe branches Negative vascular and bronchial margins on frozen section Complications None NAMRATA BELL MD May 22, 2018 14:24
--- NOTE | 2018-05-22 14:26 | PDOC4 ---
Operative Note Operative Note Date May 22, 2018 Preoperative diagnosis Left lung cancer Postoperative diagnosis Left lung cancer Procedure performed Flexible bronchoscopy Left posterolateral thoracotomy, left upper lobectomy and mediastinal lymphadenectomy Surgeon Namrata Bell MD FACS Tube Sizer Operator SARAH Galo Anesthesiologist Dr Quarles Anesthesia type General Blood loss 200 mls IV fluids 100 mls Urine output 500 mls Specimens obtained Left upper lobe Levels 5,6, 9, 10 and 11 lymph nodes Findings Large 5x6cm left upper lobe mass Several anthracotic mediastinal and hilar lymph nodes harvested Bronchoscopy negative for intrabronchial pathology Single left pulmonary vein with upper and lower lobe branches Negative vascular and bronchial margins on frozen section Complications None Indication The patient is a 58-year-old male who presented in November 2017 with shortness of breath and pleuritic chest pain. He was found to have a pulmonary embolus at that time. Additionally the CT demonstrated a cavitary lesion in the left upper lobe. Follow-up CT of the chest 4 months later showed a persistent cavitary lesion. 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 The cavitary lesion measures 6.5 x 5.5 cm. He went on to have a PET/CT which showed that the cavitary lesion was FDG avid with an SUV of 18.5. There was no other activity in the mediastinum or distally. His PFTs are good with an FEV1 of 77% and a DLCO of 75%. He currently denies shortness of breath, chest pain, cough, weight loss. He is on Eliquis which he stopped 3 days ago He has had a CT confirming resolution of his pulmonary emboli. He is here today for an elective left upper lobectomy and mediastinal lymphadenectomy. Operation The patient's ID was confirmed using 2 unique identifiers. The left chest was marked. The patient was then transferred to the operating room where an epidural catheter and appropriate monitoring lines were uneventfully placed. Anesthesia was induced by the anesthesiologist and the air way was secured with a double lumen ET tube. Through the bronchial lumen of the ET tube, I passed the flexible bronchoscope after withdrawing the tube, which was advanced to the trachea down to the left and right mainstem bronchi. I inspected the left lower and upper lobes, right upper, middle and lower lobe bronchi which were without any gross abnormalities. The bronchoscope was withdrawn. The patient was then placed in the right lateral decubitus position with the left side up. The left chest was prepped and draped in the usual sterile surgical fashion. A standard left posterolateral thoracotomy was performed. Incision was deepened through the subcutaneous tissues, the latissimus dorsi muscle down to the chest wall. The serratus anterior was preserved. The ribs were then counted and the fifth intercostal space was entered. A small part of the 6th rib was divided to avoid uncontrolled rib fractures. The left lung was isolated. The chest cavity was then explored and there was no evidence of intrapleural spread. I then divided the inferior pulmonary ligament and clearly identified the inferior pulmonary vein. Two level 9 lymph nodes were harvested from this area and sent to pathology. I then proceeded with the anterior mediastinal dissection. I opened the pleura overlying the anterior hilum thus exposing the pulmonary vein. There was only one single left pulmonary vein with branches draining the upper and lower lobes. I was able to safely get around the upper lobe vein, which included the branch from the lingular. I then completed the posterior mediastinal dissection which exposed the left bronchus and the left main PA. I identified the apicoposterior branch which was circumferentially dissected and ligated with an endovascular stapler. I then proceeded with the dissection in the fissure. I was able to completely open the fissure and exposed one anterior segmental branch and a single segmental branch to the lingula. The anterior and lingular branches were divided with a vascular stapler separately. I then proceeded with dividing the superior pulmonary vein branch, again using a vascular stapler. Once the superior pulmonary branch vein was divided, the left mainstem bronchus was nicely exposed. At this point, the fissure posteriorly was divided so I proceeded with completing the anterior fissure, from the interlobar PA to the bronchus a a single green endostapler load. Finally I performed the peribronchial dissection around the left upper lobe bronchus. I identified level 10 and 11 lymph nodes which were harvested. I then applied the stapler with a green load. Prior to firing the stapler, I asked anesthesia to inflate the left lung, thus confirming normal aeration of the left lower lobe. The left upper lobe bronchus was then divided, the specimen was removed and sent to pathology. Frozen section confirmed negative bronchial and vascular margins. I then proceeded with the mediastinal lymph node dissection. I harvested level 5 and level 6 lymph nodes. The subcarinal space was explored and no level 7 nodes were identified. A Valsalva maneuver was performed by the anesthesiologist and the bronchial stump was tested under water and no air leak was identified. Progel was applied onto the superior segment of the left lower lobe to prevent postoperative air leak. Hemostasis was confirmed. Two 28 straight chest tube was placed in the chest through separate stab incisions in the lower anterior lateral chest wall. These were secured with a #1 silk stitch. Additional pursestring U-stitches was placed. The left lung was then ventilated. The ribs were reapproximated using four #2 Vicryl sutures. The latissimus dorsi muscle was reapproximated with 2-0 Vicryl. Subcutaneous tissues were also reapproximated with a 2-0 Vicryl. The epidermis was closed with 4-0 Monocryl. Sterile dressings were applied. At the end of procedure the instrument, needle and sponge counts were correct. According to anesthesia, the ET intubation was challenging so they recommended not extubating the patient in the OR but to rather wait 1-2 hours in the ICU. The patient was transferred to the ICU intubated, in stable condition, having tolerated the procedure well. NAMRATA BELL MD May 22, 2018 14:26
[2018-05-22] MEDS ORDERED: PROPOFOL 100 ML IV ONE (14:36)
[2018-05-22] MEDS ORDERED: NALOXONE 0.4 MG/ML VIAL. IV PRN (14:45)
[2018-05-22] MEDS ORDERED: diphenhydrAMINE 50 MG/ML VIAL IV PRN (14:45)
[2018-05-22] MEDS ORDERED: 0.9 % SODIUM CHLORIDE 10 ML DISP.SYRIN. IV PRN (14:45)
[2018-05-22] MEDS ORDERED: METOCLOPRAMIDE HCL 10 MG/2 ML VIAL. IV PRN (14:45)
--- NOTE | 2018-05-22 15:24 | RAD ---
EXAM: CHEST AP ONLY DATE: 05/22/2018 2:55 PM INDICATION: POST LT LOBECTOMY COMPARISON: 04/21/2018, 12/01/2017 FINDINGS: Postoperative changes of left lobectomy are seen with hilar surgical clips and 2 left chest tubes. No significant pneumothorax is identified. ET tube tip terminates approximately 2 cm above the candace. Right IJ vascular catheter tip projects over the right atrium. Mild cardiomegaly. Aorta is tortuous. No pleural effusion. Patchy bibasilar opacities, favor atelectasis. Displaced posterior left sixth rib fracture. IMPRESSION: Postoperative changes of left lobectomy with support lines and tubes as above. Electronically signed by: Dennis Bowen MD (05/22/2018 3:20 PM) [id number]
[2018-05-22 15:38] LABS: BASE EXCESS ABG -1 mmol/L (-3-3); HCO3 ABG 24 mmol/L (21-28); PCO2 ABG 42 mmHg (35-46); PO2 ABG 457 mmHg (75-108); SAT O2 ABG 100 % (92-99)
[2018-05-22 15:41] LABS: FIO2 ABG 80
[2018-05-22] MEDS ORDERED: hydrALAZINE 20 MG/ML VIAL. IVP PRN (17:00)
[2018-05-22] MEDS: KETOROLAC 15 MG/ML VIAL. IV PRN (17:17)
[2018-05-22] MEDS: NORMAL SALINE 35 ML, fentaNYL PF VIAL 250 MCG, ROPIVacaine 0.5% PF 10 ML in EPIDURAL 50 TV EPID PRN (19:21)
[2018-05-22] MEDS: oxyCODONE IR 5 MG TABLET PO PRN (19:25)
[2018-05-22] MEDS: METOPROLOL TART IMMED RELEASE 25 MG TABLET. PO SCH (21:00)
[2018-05-22] MEDS: GABAPENTIN 300 MG CAPSULE. PO SCH (21:39)
[2018-05-22] MEDS: SENNOSIDES/DOCUSATE 8.6/50MG TABLET. PO SCH (21:39)
[2018-05-22] MEDS: DOCUSATE SODIUM 100 MG CAPSULE. PO SCH (21:39)
[2018-05-22] MEDS: FAMOTIDINE 20 MG/2 ML VIAL IVP SCH (21:40)
[2018-05-22] MEDS: HEPARIN for SUB-Q USE 5,000 UNIT/ML VIAL. SQ SCH (21:40)
[2018-05-23] VITALS (23 sets, daily range): BP systolic 95–174; BP diastolic 49–73
[2018-05-23] MEDS: NORMAL SALINE 35 ML, fentaNYL PF VIAL 250 MCG, ROPIVacaine 0.5% PF 10 ML in EPIDURAL 50 TV EPID PRN ×4 (00:12→20:34)
[2018-05-23 04:57] LABS: HEMATOCRIT 36.3 % (39.0-53.0); HEMOGLOBIN 11.7 g/dL (13.0-17.5); RED BLOOD COUNT 4.25 x10^6/uL (4.30-5.70); RED CELL DISTRIBUTION WIDTH 15.7 % (11.5-14.5); WHITE BLOOD COUNT 14.9 x10^3/uL (4.0-11.0)
[2018-05-23] MEDS: GABAPENTIN 300 MG CAPSULE. PO SCH ×3 (05:01→21:27)
[2018-05-23] MEDS: HEPARIN for SUB-Q USE 5,000 UNIT/ML VIAL. SQ SCH ×3 (05:01→21:39)
[2018-05-23] MEDS: oxyCODONE IR 5 MG TABLET PO PRN ×4 (05:01→21:29)
[2018-05-23 05:23] LABS: CALCIUM 8.2 mg/dL (8.5-10.1); CREATININE 1.3 mg/dL (0.7-1.3); GFR 56.7
--- NOTE | 2018-05-23 08:07 | PDOC ---
Progress Note Subjective Subjective Doing very well. On room air. Small air leak, minimal output. Normotensive and SR. Pain well controlled. ROS ROS No nausea No vomiting No pain No rash Vital Sign Vital Signs Vital Signs Date Time Temp Pulse Resp B/P (MAP) Pulse Ox O2 Delivery O2 Flow Rate FiO2 05/23/18 07:00 82 10 135/56 (82) 95 Room Air 05/23/18 05:32 2.0 05/23/18 04:00 98.8 98.8 Physical Exam PHYSICAL EXAM GENERAL: NAD, Alert HEENT: PERRL, OC/OP NECK: Supple, no JVD, no LN LUNGS: Clear HEART: S1S2, no gallop, no murmur ABD: Soft, NT, no organomegaly, no rebound EXT: No edema, no cyanosis [employer]: Alert, oriented x 3, no focal neurologic deficit SKIN: No rash IV: ok Labs Lab Laboratory Tests Test 05/22/18 15:26 05/23/18 04:30 O2 Saturation 100 % (92-99) Arterial Blood pH 7.37 (7.35-7.45) Arterial Blood pCO2 at Patient Temp 42 mmHg (35-46) Arterial Blood pO2 at Patient Temp 457 mmHg (75-108) Arterial Blood HCO3 24 mmol/L (21-28) Arterial Blood Base Excess -1 mmol/L (-3-3) FiO2 80 White Blood Count 14.9 x10^3/uL (4.0-11.0) Red Blood Count 4.25 x10^6/uL (4.30-5.70) Hemoglobin 11.7 g/dL (13.0-17.5) Hematocrit 36.3 % (39.0-53.0) Mean Corpuscular Volume 85 fL (79-100) Mean Corpuscular Hemoglobin 28 pg (25-35) Mean Corpuscular Hemoglobin Concent 32 g/dL (31-37) Red Cell Distribution Width 15.7 % (11.5-14.5) Platelet Count 290 x10^3/uL (140-400) Sodium Level 130 mmol/L (136-145) Potassium Level 5.0 mmol/L (3.5-5.1) Chloride Level 98 mmol/L (98-107) Carbon Dioxide Level 24 mmol/L (21-32) Anion Gap 8 (6-14) Blood Urea Nitrogen 25 mg/dL (8-26) Creatinine 1.3 mg/dL (0.7-1.3) Estimated GFR (Cockcroft-Gault) 56.7 Glucose Level 159 mg/dL (70-99) Calcium Level 8.2 mg/dL (8.5-10.1) Magnesium Level 2.1 mg/dL (1.8-2.4) Objective Assessment POD#1, s/p left upper lobectomy and mediastinal lymphadenectomy Doing very well. On room air. Small air leak, minimal output. Normotensive and SR. Pain well controlled. Plan Plan of Care Keep chest tube to suction Epidural Ambulation and pulmonary toilet b lorri Would get PICC line, so that central line can be removed-he's a difficult stick NAMRATA WYATT MD May 23, 2018 08:07
[2018-05-23] MEDS: SENNOSIDES/DOCUSATE 8.6/50MG TABLET. PO SCH ×2 (08:29→21:28)
[2018-05-23] MEDS: FAMOTIDINE 20 MG/2 ML VIAL IVP SCH ×2 (08:29→21:28)
[2018-05-23] MEDS: DOCUSATE SODIUM 100 MG CAPSULE. PO SCH ×2 (08:29→21:28)
[2018-05-23] MEDS: METOPROLOL TART IMMED RELEASE 25 MG TABLET. PO SCH ×2 (08:30→21:28)
--- NOTE | 2018-05-23 08:44 | RAD ---
Single view chest dated 05/23/2018. Comparison made to 05/22/2018. Clinical indication: Status post left upper lobectomy. Follow-up. FINDINGS: Single upright portable exam performed. Heart and mediastinal contours are stable. Interval removal of endotracheal tube. Right internal jugular catheter in place, unchanged. Evidence of prior thoracotomy on the left with 2 left-sided chest tubes, unchanged. No significant pneumothorax. Subcutaneous emphysema along the left chest wall, increased. Minimal hazy increased density at the left base, likely atelectasis. Lungs are otherwise clear. Prominent skinfold at the right apex. IMPRESSION: 1. Postthoracotomy changes on the left with left-sided chest tubes in place. No discernible pneumothorax. 2. No new or acute findings. Interval extubation. Electronically signed by: Sean Elder MD (05/23/2018 8:39 AM) [facility]
[2018-05-23] MEDS: ELECTROLYTE (ICU) PROTOCOL. MC SCH (09:00)
--- NOTE | 2018-05-23 13:19 | NUR ---
SS following for discharge planning. SS reviewed pt chart. Pt is from home with spouse and family and currently on nasal cannula oxygen. PT/OT ordered. SS awaiting PT/OT evaluations to be completed for recommendations. SS will continue to follow for pending discharge needs.
--- NOTE | 2018-05-23 14:48 | PDOC ---
PULMONARY PROGRESS NOTES Vitals Vital Signs Date Time Temp Pulse Resp B/P (MAP) Pulse Ox O2 Delivery O2 Flow Rate FiO2 05/23/18 13:16 16 97 Nasal Cannula 2.0 05/23/18 13:00 84 132/63 (86) 05/23/18 10:00 98.9 98.9 Labs Laboratory Tests Test 05/22/18 07:30 05/22/18 15:26 05/23/18 04:30 Hemoglobin 14.0 g/dL (13.0-17.5) 11.7 g/dL (13.0-17.5) Hematocrit 43.0 % (39.0-53.0) 36.3 % (39.0-53.0) Mean Corpuscular Hemoglobin Concent 33 g/dL (31-37) 32 g/dL (31-37) O2 Saturation 100 % (92-99) Arterial Blood pH 7.37 (7.35-7.45) Arterial Blood pCO2 at Patient Temp 42 mmHg (35-46) Arterial Blood pO2 at Patient Temp 457 mmHg (75-108) Arterial Blood HCO3 24 mmol/L (21-28) Arterial Blood Base Excess -1 mmol/L (-3-3) FiO2 80 White Blood Count 14.9 x10^3/uL (4.0-11.0) Red Blood Count 4.25 x10^6/uL (4.30-5.70) Mean Corpuscular Volume 85 fL (79-100) Mean Corpuscular Hemoglobin 28 pg (25-35) Red Cell Distribution Width 15.7 % (11.5-14.5) Platelet Count 290 x10^3/uL (140-400) Sodium Level 130 mmol/L (136-145) Potassium Level 5.0 mmol/L (3.5-5.1) Chloride Level 98 mmol/L (98-107) Carbon Dioxide Level 24 mmol/L (21-32) Anion Gap 8 (6-14) Blood Urea Nitrogen 25 mg/dL (8-26) Creatinine 1.3 mg/dL (0.7-1.3) Estimated GFR (Cockcroft-Gault) 56.7 Glucose Level 159 mg/dL (70-99) Calcium Level 8.2 mg/dL (8.5-10.1) Magnesium Level 2.1 mg/dL (1.8-2.4) Laboratory Tests Test 05/22/18 15:26 05/23/18 04:30 O2 Saturation 100 % (92-99) Arterial Blood pH 7.37 (7.35-7.45) Arterial Blood pCO2 at Patient Temp 42 mmHg (35-46) Arterial Blood pO2 at Patient Temp 457 mmHg (75-108) Arterial Blood HCO3 24 mmol/L (21-28) Arterial Blood Base Excess -1 mmol/L (-3-3) FiO2 80 White Blood Count 14.9 x10^3/uL (4.0-11.0) Red Blood Count 4.25 x10^6/uL (4.30-5.70) Hemoglobin 11.7 g/dL (13.0-17.5) Hematocrit 36.3 % (39.0-53.0) Mean Corpuscular Volume 85 fL (79-100) Mean Corpuscular Hemoglobin 28 pg (25-35) Mean Corpuscular Hemoglobin Concent 32 g/dL (31-37) Red Cell Distribution Width 15.7 % (11.5-14.5) Platelet Count 290 x10^3/uL (140-400) Sodium Level 130 mmol/L (136-145) Potassium Level 5.0 mmol/L (3.5-5.1) Chloride Level 98 mmol/L (98-107) Carbon Dioxide Level 24 mmol/L (21-32) Anion Gap 8 (6-14) Blood Urea Nitrogen 25 mg/dL (8-26) Creatinine 1.3 mg/dL (0.7-1.3) Estimated GFR (Cockcroft-Gault) 56.7 Glucose Level 159 mg/dL (70-99) Calcium Level 8.2 mg/dL (8.5-10.1) Magnesium Level 2.1 mg/dL (1.8-2.4) Medications Active Scripts Medications Dose Route/Sig Max Daily Dose Days Date Category Dose Instructions Eliquis (Apixaban) 5 Mg Tablet 5 Mg PO BID 12/05/17 Reported Resume tomomorrow 04/05 Amlodipine Besylate 10 Mg Tablet 10 Mg PO DAILY 12/01/17 Reported Lisinopril-Hctz 20-12.5 Mg Tab (Lisinopril/Hydrochlorothiazide) 1 Each Tablet 1 Tab PO DAILY 12/01/17 Reported Allopurinol 100 Mg Tablet 100 Mg PO BID 12/01/17 Reported Impression . FULL NOTE DICTATED AGREE WITH CURRENT RX THANKS DAIN CÁRDENAS MD May 23, 2018 14:48
[2018-05-23] MEDS: KETOROLAC 15 MG/ML VIAL. IV PRN (18:59)
--- NOTE | 2018-05-23 22:23 | CONS ---
DATE OF CONSULTATION: 05/23/2018 ATTENDING PHYSICIAN: Dr. Bell REASON FOR CONSULTATION: The patient seen in pulmonary consultation at the request of Dr. Bell for expected respiratory failure, status post left posterior lateral thoracotomy. HISTORY OF PRESENT ILLNESS: The patient is a 58-year-old that presented back in November with shortness of breath and pleuritic pain. He had a previous history of pulmonary emboli. Additional testing demonstrated a cavitary lesion in the left upper lobe. Followup CT 4 months later showed a persistent cavitary lesion, percutaneous biopsy revealed adenosquamous lung cancer. The patient underwent PET scanning showing cavitary lesion with an FDG activity of 18.5. There was no other activity in the mediastinum. PFTs revealed an FEV1 of 77% of predicted. The patient underwent surgical intervention yesterday. I was asked to see him in consultation after his surgery for expected postoperative hypoxemia. The patient is currently sitting up in a chair. He is not more short of breath today. His pain management is adequate. He denies any hemoptysis. No productive cough. PAST MEDICAL HISTORY: 1. 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 He is on lifetime anticoagulation. He has been seen by garden tractor mechanic in the past. 2. Hypertension. 3. Hyperlipidemia. 4. Tobacco dependence, quit 14 years ago. PAST SURGICAL HISTORY: Previous left ankle and right femur repair. FAMILY HISTORY: No family history of thrombophilia. SOCIAL HISTORY: Denies any alcohol. No current use of tobacco. MEDICATIONS: List was reviewed. REVIEW OF SYSTEMS: As indicated above, otherwise a 10-point system was reviewed and negative. PHYSICAL EXAMINATION: VITAL SIGNS: Stable. O2 saturation was greater than 92%, currently on 2 liters. HEENT: Eyes, the sclerae were nonicteric. NECK: Jugular venous distention was not elevated. No lymphadenopathy. CHEST: Full expansion. LUNGS: Diminished breath sounds in the left. No wheezes. CARDIOVASCULAR: Regular rate and rhythm with S1, S2, no S3. ABDOMEN: Soft, nontender and nondistended. EXTREMITIES: No clubbing, cyanosis or edema. NEUROLOGIC: The patient was awake, alert and following commands. A detailed neuro exam was not performed. LABORATORY DATA: Reviewed. White count was elevated. Arterial blood gas from yesterday was noted. Chest x-ray reveals some postop changes. IMPRESSION: 1. Expected respiratory failure after surgical intervention for lung cancer. 2. Status post left posterior lateral thoracotomy, left upper lobectomy, mediastinal lymphadenopathy. 3. Tobacco dependence, in remission, quit 14 years ago. 4. 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 PLAN: 1. Continue postop care. 2. Continue heparin for anticoagulation. 3. Continue home meds. 4. Await final pathology report. The above was discussed with Dr. Bell. DAIN CÁRDENAS MD DR: QUYEN/nts JOB#: [id number] / [id number]
[2018-05-24] VITALS (22 sets, daily range): BP systolic 90–210; BP diastolic 40–89
[2018-05-24] MEDS: NORMAL SALINE 35 ML, fentaNYL PF VIAL 250 MCG, ROPIVacaine 0.5% PF 10 ML in EPIDURAL 50 TV EPID PRN ×2 (01:15→10:19)
--- NOTE | 2018-05-24 04:00 | NUR ---
pATIENT LETHARGIC AND UNRESPONSIVE. NARCAN GIVEN WITH PATIENT STARTING TO WAKE UP. EPIDURAL STOPPED Addendum: 05/24/18 at 0544 by CELESTINO SCHUSTER RN Amended: Links added.
[2018-05-24 05:46] LABS: HEMATOCRIT 40.2 % (39.0-53.0); HEMOGLOBIN 12.6 g/dL (13.0-17.5); RED BLOOD COUNT 4.62 x10^6/uL (4.30-5.70); WHITE BLOOD COUNT 16.7 x10^3/uL (4.0-11.0)
[2018-05-24] MEDS: GABAPENTIN 300 MG CAPSULE. PO SCH ×2 (06:00→21:00)
[2018-05-24 06:10] LABS: CALCIUM 8.5 mg/dL (8.5-10.1); CREATININE 1.4 mg/dL (0.7-1.3); GFR 52.1
[2018-05-24 06:14] LABS: POTASSIUM 6.2 mmol/L (3.5-5.1)
[2018-05-24] MEDS: HEPARIN for SUB-Q USE 5,000 UNIT/ML VIAL. SQ SCH ×3 (06:37→21:46)
[2018-05-24] MEDS ORDERED: DEXTROSE 50% 25 GM / 50ML DISP.SYRIN. IV ONE (07:00)
[2018-05-24] MEDS ORDERED: INSULIN REGULAR 100 UNIT/ML 3ML VIAL. IV ONE (07:00)
--- NOTE | 2018-05-24 07:27 | NUR ---
Gabapentin not given at 0600 by night nurse per report.
[2018-05-24 08:01] LABS: BASE EXCESS ABG -2 mmol/L (-3-3); HCO3 ABG 27 mmol/L (21-28); PO2 ABG 89 mmHg (75-108); SAT O2 ABG 97 % (92-99)
[2018-05-24 08:04] LABS: PCO2 ABG 65 mmHg (35-46)
[2018-05-24 08:05] LABS: FIO2 ABG 36
[2018-05-24] MEDS: FAMOTIDINE 20 MG/2 ML VIAL IVP SCH ×2 (08:26→21:48)
--- NOTE | 2018-05-24 08:42 | RAD ---
EXAM: AP View of the chest DATE: 05/24/2018 6:43 AM INDICATION: RESP DISTRESS COMPARISON: 05/23/2018 05/22/2018 FINDINGS/ IMPRESSION: Right IJ vascular catheter and 2 left chest tubes are stable in position. No pneumothorax. Subcutaneous emphysema left chest wall stable. Cardiomediastinal silhouette is stable. No pleural effusion or pneumothorax. Electronically signed by: Dennis Bowen MD (05/24/2018 8:37 AM) [facility]
[2018-05-24] MEDS: METOPROLOL TART IMMED RELEASE 25 MG TABLET. PO SCH ×2 (09:00→21:00)
[2018-05-24] MEDS: SENNOSIDES/DOCUSATE 8.6/50MG TABLET. PO SCH ×2 (09:00→21:00)
[2018-05-24] MEDS: DOCUSATE SODIUM 100 MG CAPSULE. PO SCH ×2 (09:00→21:00)
[2018-05-24] MEDS: ELECTROLYTE (ICU) PROTOCOL. MC SCH (09:00)
--- NOTE | 2018-05-24 09:42 | PDOC ---
PULMONARY PROGRESS NOTES Subjective PT SLEEPY THIS AM ABG NOTED INCREASE CO2 NOW ON BIPAP Vitals Vital Signs Date Time Temp Pulse Resp B/P (MAP) Pulse Ox O2 Delivery O2 Flow Rate FiO2 05/24/18 08:05 95 BiPAP/CPAP 05/24/18 05:00 100.0 65 20 103/50 (67) 4.0 100.0 General: Lethargic Lungs: Crackles Cardiovascular: S1, S2 Abdomen: Soft, Other (DISTENDED) Extremities: Other (EDEMA) Skin: Warm Labs Laboratory Tests Test 05/22/18 15:26 05/23/18 04:30 05/24/18 05:00 05/24/18 07:30 O2 Saturation 100 % (92-99) Arterial Blood pH 7.37 (7.35-7.45) Arterial Blood pCO2 at Patient Temp 42 mmHg (35-46) Arterial Blood pO2 at Patient Temp 457 mmHg (75-108) Arterial Blood HCO3 24 mmol/L (21-28) Arterial Blood Base Excess -1 mmol/L (-3-3) FiO2 80 White Blood Count 14.9 x10^3/uL (4.0-11.0) 16.7 x10^3/uL (4.0-11.0) Red Blood Count 4.25 x10^6/uL (4.30-5.70) 4.62 x10^6/uL (4.30-5.70) Hemoglobin 11.7 g/dL (13.0-17.5) 12.6 g/dL (13.0-17.5) Hematocrit 36.3 % (39.0-53.0) 40.2 % (39.0-53.0) Mean Corpuscular Volume 85 fL (79-100) 87 fL (79-100) Mean Corpuscular Hemoglobin 28 pg (25-35) 27 pg (25-35) Mean Corpuscular Hemoglobin Concent 32 g/dL (31-37) 31 g/dL (31-37) Red Cell Distribution Width 15.7 % (11.5-14.5) 16.0 % (11.5-14.5) Platelet Count 290 x10^3/uL (140-400) 338 x10^3/uL (140-400) Sodium Level 130 mmol/L (136-145) 128 mmol/L (136-145) Potassium Level 5.0 mmol/L (3.5-5.1) 6.2 mmol/L (3.5-5.1) 5.3 mmol/L (3.5-5.1) Chloride Level 98 mmol/L (98-107) 96 mmol/L (98-107) Carbon Dioxide Level 24 mmol/L (21-32) 27 mmol/L (21-32) Anion Gap 8 (6-14) 5 (6-14) Blood Urea Nitrogen 25 mg/dL (8-26) 24 mg/dL (8-26) Creatinine 1.3 mg/dL (0.7-1.3) 1.4 mg/dL (0.7-1.3) Estimated GFR (Cockcroft-Gault) 56.7 52.1 Glucose Level 159 mg/dL (70-99) 147 mg/dL (70-99) Calcium Level 8.2 mg/dL (8.5-10.1) 8.5 mg/dL (8.5-10.1) Magnesium Level 2.1 mg/dL (1.8-2.4) Test 05/24/18 07:40 O2 Saturation 97 % (92-99) Arterial Blood pH 7.23 (7.35-7.45) Arterial Blood pCO2 at Patient Temp 65 mmHg (35-46) Arterial Blood pO2 at Patient Temp 89 mmHg (75-108) Arterial Blood HCO3 27 mmol/L (21-28) Arterial Blood Base Excess -2 mmol/L (-3-3) FiO2 36 Laboratory Tests Test 05/24/18 05:00 05/24/18 07:30 05/24/18 07:40 White Blood Count 16.7 x10^3/uL (4.0-11.0) Red Blood Count 4.62 x10^6/uL (4.30-5.70) Hemoglobin 12.6 g/dL (13.0-17.5) Hematocrit 40.2 % (39.0-53.0) Mean Corpuscular Volume 87 fL (79-100) Mean Corpuscular Hemoglobin 27 pg (25-35) Mean Corpuscular Hemoglobin Concent 31 g/dL (31-37) Red Cell Distribution Width 16.0 % (11.5-14.5) Platelet Count 338 x10^3/uL (140-400) Sodium Level 128 mmol/L (136-145) Potassium Level 6.2 mmol/L (3.5-5.1) 5.3 mmol/L (3.5-5.1) Chloride Level 96 mmol/L (98-107) Carbon Dioxide Level 27 mmol/L (21-32) Anion Gap 5 (6-14) Blood Urea Nitrogen 24 mg/dL (8-26) Creatinine 1.4 mg/dL (0.7-1.3) Estimated GFR (Cockcroft-Gault) 52.1 Glucose Level 147 mg/dL (70-99) Calcium Level 8.5 mg/dL (8.5-10.1) O2 Saturation 97 % (92-99) Arterial Blood pH 7.23 (7.35-7.45) Arterial Blood pCO2 at Patient Temp 65 mmHg (35-46) Arterial Blood pO2 at Patient Temp 89 mmHg (75-108) Arterial Blood HCO3 27 mmol/L (21-28) Arterial Blood Base Excess -2 mmol/L (-3-3) FiO2 36 Medications Active Scripts Medications Dose Route/Sig Max Daily Dose Days Date Category Dose Instructions Eliquis (Apixaban) 5 Mg Tablet 5 Mg PO BID 12/05/17 Reported Resume tomomorrow 04/05 Amlodipine Besylate 10 Mg Tablet 10 Mg PO DAILY 12/01/17 Reported Lisinopril-Hctz 20-12.5 Mg Tab (Lisinopril/Hydrochlorothiazide) 1 Each Tablet 1 Tab PO DAILY 12/01/17 Reported Allopurinol 100 Mg Tablet 100 Mg PO BID 12/01/17 Reported Comments IMPRESSION: 2/1 Right IJ vascular catheter and 2 left chest tubes are stable in position. No pneumothorax. Subcutaneous emphysema left chest wall stable. Cardiomediastinal silhouette is stable. No pleural effusion or pneumothorax. Impression . IMPRESSION: 1. Expected respiratory failure after surgical intervention for lung cancer. 2. Status post left posterior lateral thoracotomy, left upper lobectomy, mediastinal lymphadenopathy. 3. Tobacco dependence, in remission, quit 14 years ago. 4. 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 5. HYPERCAPNIA 6 METABOLIC ENCEPHALOPATHY 7. SUBCUTANEOUS EMPHYSEMA Plan . SPOKE WITH RN CUT LEAD ELECTRICAL ENGINEER IN HALF D/W FAMILY INFORMED THEM THAT THIS IS NOT UNUSUAL FOR C02 TO RISE SEC TO PAIN MED, RECENT SURGERY, POSSIBLE CHICA CONTINUE BIPAP REPEAT ABG FINAL PATH PENDING CHEST TUBE PER DAIN CARDENAS MD May 24, 2018 09:42
--- NOTE | 2018-05-24 10:50 | NUR ---
Epidural decreased to 5 ml/hr per Dr. Marshall.
[2018-05-24 11:14] LABS: BASE EXCESS ABG -5 mmol/L (-3-3); HCO3 ABG 23 mmol/L (21-28); PCO2 ABG 55 mmHg (35-46); PO2 ABG 66 mmHg (75-108); SAT O2 ABG 92 % (92-99)
[2018-05-24] MEDS ORDERED: ALBUTEROL SULFATE 2.5 MG/3 ML NEBU. NEB PRN (11:15)
[2018-05-24 12:06] LABS: FIO2 ABG 30
[2018-05-24] MEDS: ACETAMINOPHEN 325 MG TABLET. PO PRN ×2 (12:15→16:11)
--- NOTE | 2018-05-24 12:32 | NUR ---
Dr. Bell notified of temp 101.3. Informed him that Tylenol had been given. No new orders received.
--- NOTE | 2018-05-24 13:00 | NUR ---
Jerardo RN at bedside to insert PICC line per Dr. Bell order.
--- NOTE | 2018-05-24 14:00 | NUR ---
temp 101.4. Dr. Bell here and notified of continued elevated temp. No new orders. Continue Tylenol for treatment.
--- NOTE | 2018-05-24 14:12 | NUR ---
PRE PICC INSERTION NOTE Allergies and reactions NKDA INR NA BUN 24 Cr 1.4 Platelets 338 Blood culture done NA blood culture results Order Verified YES Consent signed YES Previous PICC placement YES Past Medical/Surgical history and current diagnosis reviewed YES Patient Medical /Surgical History Related to PICC line placement Cancer Chemotherapy PLANNED Deep Vein Thrombosis (DVT) Irradiation POSSIBLE Past central line or venous access device placement Problems breathing lying flat Pulmonary Embolism (PE) Special considerations for PICC line placement NONE PICC placement indication Caustic medication class drug usage, Multiple/ Frequent blood draws, Poor peripheral intravenous access name of PICC Nurse Jerardo Villalta RN
--- NOTE | 2018-05-24 14:16 | NUR ---
PICC INSERTION NOTE: Procedure: Following complete explanation of the PICC procedure including the indications, risks, and potential complications, informed consent was obtained. The possibility for infection was discussed along with signs, symptoms, and prevention. All the [PATIENT/FAMILY] questions were answered. Written and verbal patient education was provided. Hand hygiene performed. Standardized central line checklist was utilized. The patient was placed in the supine position, the arm was prepped with chlorhexidine and patient draped with maximum sterile barrier. [0.5] mL 1% lidocaine was infiltrated into the skin to provide local anesthesia. A thorough assessment of [RIGHT] upper extremity completed. Using real-time ultrasound guidance and standardized micro puncture set, the [RIGHT BASILIC] vein was punctured and a peel away sheath was placed using the modified Seldinger technique. A tip location device was used to ensure adequate catheter placement. The catheter was secured using a securement device and an antimicrobial patch was applied directly on the insertion site followed by a transparent dressing. All ports withdraw blood and flush without resistance. Patient tolerated the procedure without apparent complication(s). [5 GREEK TRIPLE] Lumen Power PICC placement successful and uncomplicated. Placement verified by EKG tip confirmation system and/or chest x-ray. Tip located in the [SVC] Complications: [NONE]
[2018-05-24] MEDS: IV NORMAL SALINE 1000ML BAG 1,000 ML IV SCH (14:35)
--- NOTE | 2018-05-24 14:43 | PDOC ---
Progress Note Subjective Subjective Hypercapnia with AMS since last night, CO 65, started on BiPAP, repeat after 2 hours 55. Awaiting new ABG. More responsive now. Small air leak, minimal output. Normotensive and SR. 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: Alert, oriented x 3, no focal neurologic deficit SKIN: No rash IV: ok Labs Lab Laboratory Tests Test 05/24/18 05:00 05/24/18 07:30 05/24/18 07:40 05/24/18 10:30 White Blood Count 16.7 x10^3/uL (4.0-11.0) Red Blood Count 4.62 x10^6/uL (4.30-5.70) Hemoglobin 12.6 g/dL (13.0-17.5) Hematocrit 40.2 % (39.0-53.0) Mean Corpuscular Volume 87 fL (79-100) Mean Corpuscular Hemoglobin 27 pg (25-35) Mean Corpuscular Hemoglobin Concent 31 g/dL (31-37) Red Cell Distribution Width 16.0 % (11.5-14.5) Platelet Count 338 x10^3/uL (140-400) Sodium Level 128 mmol/L (136-145) Potassium Level 6.2 mmol/L (3.5-5.1) 5.3 mmol/L (3.5-5.1) Chloride Level 96 mmol/L (98-107) Carbon Dioxide Level 27 mmol/L (21-32) Anion Gap 5 (6-14) Blood Urea Nitrogen 24 mg/dL (8-26) Creatinine 1.4 mg/dL (0.7-1.3) Estimated GFR (Cockcroft-Gault) 52.1 Glucose Level 147 mg/dL (70-99) Calcium Level 8.5 mg/dL (8.5-10.1) Troponin I Quantitative 0.021 ng/mL (0.000-0.055) O2 Saturation 97 % (92-99) 92 % (92-99) Arterial Blood pH 7.23 (7.35-7.45) 7.24 (7.35-7.45) Arterial Blood pCO2 at Patient Temp 65 mmHg (35-46) 55 mmHg (35-46) Arterial Blood pO2 at Patient Temp 89 mmHg (75-108) 66 mmHg (75-108) Arterial Blood HCO3 27 mmol/L (21-28) 23 mmol/L (21-28) Arterial Blood Base Excess -2 mmol/L (-3-3) -5 mmol/L (-3-3) FiO2 36 30 Test 05/24/18 14:20 Potassium Level 5.1 mmol/L (3.5-5.1) Objective Assessment POD#2, s/p left upper lobectomy and mediastinal lymphadenectomy Hypercapnia with AMS since last night, CO 65, started on BiPAP, repeat after 2 hours 55. Awaiting new ABG. More responsive now. Small air leak, minimal output. Normotensive and SR. Etiology not clear. Apparently he may have undiagnosed CHICA. Epidural with fentanyl may be a cause, although not routinely expected. Also hx of heavy drinking. Potential element of ETOH withdrawal. Fevers not from infection-too early after surgery. Hold cultures and abx for now. PICC inserted Plan Plan of Care Keep chest tube to suction Turn off epidural Continue BiPAP Banana bag for possible withdrawals Q8 ABGs until CO2 normal D/c central line Heparin s/q for DVT prophylaxis NAMRATA WYATT MD May 24, 2018 14:43
[2018-05-24 14:50] LABS: BASE EXCESS ABG 1 mmol/L (-3-3); HCO3 ABG 29 mmol/L (21-28); PO2 ABG 71 mmHg (75-108); SAT O2 ABG 93 % (92-99)
[2018-05-24 15:06] LABS: FIO2 ABG 30; PCO2 ABG 60 mmHg (35-46)
--- NOTE | 2018-05-24 15:08 | PATHOLOGY ---
[facility] Accession Number: [id number] . 01 Material submitted: . PART A: LEFT UPPER LOBE FOR VASCULAR AND BRONCHIAL MARGINS - FS PART B: LEVEL 9 MEDIASTINAL LYMPH NODE PART C: LEVEL 10 MEDIASTINAL LYMPH NODE PART D: LEVEL 6 MEDIASTINAL LYMPH NODE PART E: LEVEL 5 MEDIASTINAL LYMPH NODE PART F: LEVEL 11 MEDIASTINAL LYMPH NODE . 02 Diagnosis: A. Lung lobe, left upper lobectomy: - ADENOSQUAMOUS CARCINOMA, INVASIVE, MODERATELY TO POORLY DIFFERENTIATED, FORMING A CAVITARY LUNG MASS MEASURING 6.9 CM IN GREATEST DIMENSION. SEE SYNOPTIC REPORT. - METASTATIC ADENOCARCINOMA INVOLVING ONE OF FOUR PERIBRONCHIAL LYMPH NODES (1/4). - Focal tumor invasion of visceral pleura. - Focal tumor vascular invasion within neoplasm. - Bronchial margin of resection negative for tumor. - Pulmonary vascular margins of resection negative for tumor. - Obstructive lipoid pneumonia of lung, focal. . B. Segments of lymph node and fibroadipose tissue, level 9 mediastinal lymph node: - Negative for tumor. . C. Segments of lymph node and fibroadipose tissue, level 10 mediastinal lymph node: - METASTATIC ADENOCARCINOMA. . D. Segment of lymph node and fibroadipose tissue, level 6 mediastinal lymph node: - METASTATIC ADENOCARCINOMA. . E. Segments of lymph node and fibroadipose tissue, level 5 mediastinal lymph node: - Negative for tumor. . F. Segments of lymph node and fibroadipose tissue, level 11 mediastinal lymph node: - Negative for tumor. . (JPM:shawna; 05/24/2018) . . SURGICAL PATHOLOGY CANCER CASE SUMMARY . Protocol posting date: September 2016 . LUNG: . Procedure ___ Lobectomy . Specimen Laterality ___ Left . Tumor Site ___ Upper lobe of lung . Tumor Size (applies to histologic types other than invasive nonmucinous adenocarcinoma with a lepidic component) Greatest dimension (centimeters): 6.9 cm . Tumor Focality ___ Single tumor . 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 Histologic Grade ___ Moderately to poorly differentiated . Visceral Pleura Invasion ___ Present . Lymphovascular Invasion ___ Present . Margins ___ All margins are uninvolved by tumor Margins examined (specify): Bronchial and vascular. Distance of invasive carcinoma from closest margin (centimeters): 1.7 cm Specify closest margin: Bronchial margin. . Treatment Effect ___ No known presurgical therapy . Regional Lymph Nodes . Number of Lymph Nodes Involved: 3 Specify alejandro station(s) involved (applicable only if node(s) involved): Peribronchial, level 10 mediastinal, and level 6 mediastinal lymph nodes . Number of Lymph Nodes Examined: 9 Specify alejandro station(s) examined: Peribronchial, level 9 mediastinal, level 10 mediastinal, level 6 mediastinal, level 5 mediastinal, and level 11 mediastinal lymph nodes. . Pathologic Stage Classification (pTNM, AJCC 8th Edition) . Primary Tumor (pT) ___ pT3: Tumor >5 cm but < or = 7 cm in greatest dimension. . Regional Lymph Nodes (pN) ___ pN2: Metastasis in ipsilateral mediastinal and/or subcarinal lymph node(s). . (JPM:seamus; 05/24/2018) MBR/05/24/2018 . 02 Electronically signed: . Ifeanyi Schmidt MD, Pathologist NPI- [id number] . 01 Gross description: . A. The specimen is received fresh for intraoperative consultation and designated "left upper lobe for vascular and bronchial margins". This consists of a lobe of lung tissue that weighs 260 grams and measures up to 24.0 x 10.0 x 5.0 cm in greatest dimension. The pleural surface is pink-guy to pink-red to purple. The lateral pleural surface is puckered. This corresponds to an underlying palpable lung mass. The hilar region of the lung is identified. The bronchial and vascular resection margins are stapled closed. There are few hilar black anthracotic lymph nodes measuring up to 1.2 cm. There is a T-shaped staple line extending inferiorly from the hilar region. The cross of the T measures 4.5 cm and the stem of the T measures up to 8.5 cm in length. The bronchial and vascular margins of resection are removed and submitted for frozen section as FSA1. The tissue remaining from frozen section is submitted for permanent sections as A1. (JPM:pit 05/22/2018) . The specimen is fixed overnight in formalin. Upon further sectioning, the pleural puckering corresponds with a guy-white firm and centrally cavitary mass measuring 6.9 x 5.2 x 5.2 cm. The mass is located 1.7 cm from the bronchial margin and 2.3 cm from the closest vascular margin. The mass diffusely involve the pleura and surrounds the bronchial and vascular tissue near the hilum. The uninvolved lung parenchyma is red-brown and crepitant. Additional patient representative sections are submitted as follows: A2 multiple possible lymph nodes A3-A4 mass to pleural (inked black) A5-A6 mass to uninvolved lung parenchyma A7-A8 mass to bronchial and vascular tissue ([facility]; 05/23/2018) . B. Received in formalin labeled "Jaylon Gavin, level 9 mediastinal lymph node" is a 1.8 x 0.6 x 0.4 cm aggregate of yellow-guy to quiles-black possible lymphoid tissue fragments. The specimen is submitted entirely without sectioning in cassette B1. . C. Received in formalin labeled "Jaylon Gavin, level 10 mediastinal lymph node" is a 2.5 x 2.0 x 1.3 cm aggregate of guy-quiles anthracotic possible lymphoid tissue fragments. The smaller fragments are submitted without sectioning in cassette C1. The largest fragment is serially sectioned and submitted in cassette C2. . D. Received in formalin labeled "Jaylon Gavin, level 6 mediastinal lymph node" is a pink-quiles anthracotic possible lymph node measuring 1.6 x 1.3 x 0.6 cm. The possible lymph node is serially sectioned and submitted entirely in cassette D1. . E. Received in formalin labeled "Jaylon Gavin, level 5 mediastinal lymph node" are two pink-quiles anthracotic possible lymph node fragments measuring 1.7 x 1.0 x 0.5 cm and 2.7 x 0.7 x 0.5 cm. The pieces are serially sectioned and submitted in cassettes E1-E2 respectively. . F.Received in formalin labeled "Jaylon Gavin, level 11 mediastinal lymph node" is a pink-quiles anthracotic possible lymph node measuring 1.3 x 1.0 x 0.6 cm. The specimen is serially sectioned and submitted entirely in cassette F1. ([facility]; 05/23/2018) . INTRAOPERATIVE CONSULTATION WITH FROZEN SECTION FSA1. Left upper lobe for vascular and bronchial margins: - Bronchial and vascular margins of resection negative for tumor. (JPM:pit 05/22/2018) . The results are reported to Dr. Mendoza in the operating room. . Frozen section performed at [facility], [address] [place] [id number]. [facility] . Pathologist provided ICD-10: C34.12, C77.1 . 02 CPT . 911816, 231933, 122780, 069314, [id number] Specimen Comment: A courtesy copy of this report has been sent to Specimen Comment: [phone], . Specimen Comment: Report sent to / DR SCHMITZ Specimen Comment: A duplicate report has been generated due to demographic updates. Performed at: 01 [facility] [address] [place] [address] [address], [place], [place] [id number] MD Santiago Erickson MD Phone: [phone] Performed at: [address] [id number] MD Ifeanyi Schmidt MD Phone: [phone]
[2018-05-24] MEDS: MULTIVIT INFUSN,ADULT 4,VIT K 10 ML, THIAMINE INJ 100 MG, FOLIC ACID INJ 1 MG in IV NOR... IV SCH (15:46)
--- NOTE | 2018-05-24 16:00 | NUR ---
Temp 101.5. Tylenol for treatment as ordered.
--- NOTE | 2018-05-24 17:00 | NUR ---
Dr. Bell here. Informed temp continues to be elevated and is 101.5 which Tylenol has been given for. Patient complaints of abdominal pain. Orders received.
--- NOTE | 2018-05-24 18:04 | RAD ---
PQRS Compliance statement: One or more of the following individualized dose reduction techniques were utilized for this examination: 1. Automated exposure control. 2. Adjustment of the mA and/or kV according to patient size. 3. Use of iterative reconstruction technique. Indication:ABD PAIN AND DISTENTION RECENT L POSTERIOR LATERAL THORACTOMY H/O ADENOSQUAMOUS CELL LUNG CA NO CONTRAST NO PREV CALL RESULTS TO ICU [phone] TECHNIQUE: CT abdomen and pelvis without IV contrast with multiplanar reformats. COMPARISON: None FINDINGS: Limited evaluation of solid abdominal and pelvic organs due to lack of IV contrast. Heart is normal in size. No pericardial. Trace left pleural effusion. 2 left posterolateral chest tubes are seen with their tips not visualized. Patchy opacities are seen in the left lung base. Moderate left anterolateral chest wall emphysema likely secondary to recent thoracotomy. Liver is normal in morphology. Spleen is nonenlarged. No radiopaque gallstones. Concentrated bile or sludge in the gallbladder. Noncontrast appearance of the pancreas and adrenals within normal limits. No nephrolithiasis or hydronephrosis. No enlarged retroperitoneal or pelvic adenopathy. No free pelvic fluid or ascites. Diffuse dilation of the colon is seen with air-fluid levels. Normal appendix. Small bowel is nondilated. The prostate and seminal vesicles show no large mass. Bladder is decompressed with Anderson catheter. No pneumoperitoneum. Inflammatory changes are seen in the right paracolic catheter. Circumferential wall thickening is seen of the rectum. No perirectal inflammatory changes. No suspicious bony lesion. IMPRESSION: 1. Left lateral chest wall emphysema likely secondary to thoracotomy changes. 2. Diffuse dilation of the colon with air-fluid levels without apparent obstructing lesion suggests colonic ileus. 3. Circumferential wall thickening of the rectum may be secondary to proctitis. Correlate with recent colonoscopy to rule out rectal malignancy. 4. Right paracolic gutter inflammatory changes, nonspecific. Electronically signed by: Leodan Villegas DO (05/24/2018 6:00 PM) [facility]
[2018-05-24] MEDS: PIPERACILLIN/TAZOBACTAM 4.5 GM in IV NORMAL SALINE 100ML 100 ML IV SCH (18:20)
[2018-05-24 18:42] LABS: BASE EXCESS ABG 0 mmol/L (-3-3); HCO3 ABG 26 mmol/L (21-28); PO2 ABG 79 mmHg (75-108); SAT O2 ABG 96 % (92-99)
[2018-05-24 18:44] LABS: FIO2 ABG 30; PCO2 ABG 50 mmHg (35-46)
[2018-05-24] MEDS: KETOROLAC 15 MG/ML VIAL. IV PRN (21:42)
[2018-05-24 22:30] LABS: BASE EXCESS ABG -1 mmol/L (-3-3); HCO3 ABG 24 mmol/L (21-28); PCO2 ABG 38 mmHg (35-46); PO2 ABG 101 mmHg (75-108); SAT O2 ABG 98 % (92-99)
[2018-05-24 22:51] LABS: FIO2 ABG 30
[2018-05-25] VITALS (23 sets, daily range): BP systolic 106–184; BP diastolic 52–81
[2018-05-25] MEDS: IV NORMAL SALINE 1000ML BAG 1,000 ML IV SCH ×3 (05:20→21:40)
[2018-05-25] MEDS: PIPERACILLIN/TAZOBACTAM 4.5 GM in IV NORMAL SALINE 100ML 100 ML IV SCH ×5 (06:19→17:23)
[2018-05-25] MEDS: HEPARIN for SUB-Q USE 5,000 UNIT/ML VIAL. SQ SCH ×3 (06:20→21:38)
[2018-05-25 06:41] LABS: HEMOGLOBIN 10.7 g/dL (13.0-17.5); RED BLOOD COUNT 3.86 x10^6/uL (4.30-5.70); RED CELL DISTRIBUTION WIDTH 15.7 % (11.5-14.5); WHITE BLOOD COUNT 11.1 x10^3/uL (4.0-11.0)
[2018-05-25 06:43] LABS: CALCIUM 8.1 mg/dL (8.5-10.1); CREATININE 1.4 mg/dL (0.7-1.3); GFR 52.1; POTASSIUM 4.5 mmol/L (3.5-5.1)
--- NOTE | 2018-05-25 08:07 | RAD ---
EXAM: AP View of the chest DATE: 05/25/2018 7:00 AM INDICATION: s/p left upper lobectomy COMPARISON: 05/24/2018 FINDINGS: Cardiomediastinal silhouette is grossly stable accounting for differences in positioning. Changes of left upper lobectomy are seen with 2 left chest tubes. Small left pleural effusion. No pneumothorax. Simultaneous emphysema overlying the left lung. Diffuse opacities left lung possibly atelectasis given the relatively rapid development. Right upper extremity PICC tip projects over the distal SVC. IMPRESSION: 1. Interval development of diffuse left lung opacities, given the relatively rapid development favor atelectasis. 2. Left chest tubes and right PICC stable. Electronically signed by: Dennis Bowen MD (05/25/2018 8:03 AM) [facility]
--- NOTE | 2018-05-25 08:34 | PDOC2 ---
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 Hypercapnia and required bipap. Developed fevers and AMS. Abdomen became more distended and having pain CT revealed colonic ileus and rectal thickening Reports no previous colonoscopy now having stools, however still with upper abdominal pain and distention Past Medical History Cardiovascular: HTN, Hyperlipidemia Pulmonary: Pulmonary embolus, Other ([facility]) GI: No pertinent hx Heme/Onc: No pertinent hx Hepatobiliary: No pertinent hx Psych: No pertinent hx Rheumatologic: No pertinent hx Infectious disease: No pertinent hx ENT: No pertinent hx Renal/: No pertinent hx Endocrine: No pertinent hx Dermatology: No pertinent hx Past Surgical History Past Surgical History: Other (Left ankle and Rt femur ORIF) Family History Family History: No Significant Social History No ALCOHOL: none Drugs: None Current Medications Current Medications Current Medications Ondansetron HCl (Zofran) 4 mg PRN Q6HRS PRN IV NAUSEA/VOMITING; Start 05/22/18 at 07:00; Stop 05/22/18 at 14:47; Status DC Fentanyl Citrate (Fentanyl 2ml Vial) 25 mcg PRN Q5MIN PRN IV MILD PAIN; Start 05/22/18 at 07:00; Stop 05/23/18 at 06:59; Status DC Fentanyl Citrate (Fentanyl 2ml Vial) 50 mcg PRN Q5MIN PRN IV MODERATE TO SEVERE PAIN; Start 05/22/18 at 07:00; Stop 05/23/18 at 06:59; Status DC Morphine Sulfate (Morphine Sulfate) 1 mg PRN Q10MIN PRN IV SEVERE PAIN; Start 05/22/18 at 07:00; Stop 05/23/18 at 06:59; Status DC Ringer's Solution 1,000 ml @ 30 mls/hr Q24H IV Last administered on 05/22/18at 08:00; Start 05/22/18 at 07:00; Stop 05/22/18 at 18:59; Status DC Lidocaine HCl (Xylocaine-Mpf 1% 2ml Vial) 2 ml PRN 1X PRN ID IV START; Start at 07:00; Stop 05/23/18 at 06:59; Status DC Hydromorphone HCl (Dilaudid) 0.5 mg PRN Q10MIN PRN IV SEV PAIN, Second choice; Start 05/22/18 at 07:00; Stop 05/23/18 at 06:59; Status DC Prochlorperazine Edisylate (Compazine) 5 mg PACU PRN PRN IV NAUSEA, MRX1; Start 05/22/18 at 07:00; Stop 05/23/18 at 06:59; Status DC Cefazolin Sodium 1 gm/Sodium Chloride 500 ml @ 500 mls/hr 1X ONCE IRR Last administered on 05/22/18at 09:56; Start 05/22/18 at 06:00; Stop 05/22/18 at 06:59 ; Status DC Cefazolin Sodium/ Dextrose 50 ml @ 100 mls/hr 1X PREOP PRN IV PRIOR TO PROCEDURE; Start 05/22/18 at 06:00; Stop 05/22/18 at 18:00; Status DC Cellulose (Surgicel Hemostat 4x8) 1 each STK-MED ONCE .ROUTE Last administered on 05/22/18at 13:24; Start 05/22/18 at 07:38; Stop 05/22/18 at 07:41; Status DC Cellulose (Surgicel Hemostat 4x8) 1 each STK-MED ONCE .ROUTE ; Start 05/22/18 at 07:38; Stop 05/22/18 at 07:41; Status DC Dexamethasone Sodium Phosphate (Decadron) 20 mg STK-MED ONCE .ROUTE ; Start at 08:41; Stop 05/22/18 at 08:43; Status DC Lidocaine HCl (Lidocaine Pf 2% Vial) 5 ml STK-MED ONCE .ROUTE ; Start 05/22/18 at 08:41; Stop 05/22/18 at 08:43; Status DC Propofol 20 ml @ As Directed STK-MED ONCE IV ; Start 05/22/18 at 08:41; Stop at 08:44; Status DC Ondansetron HCl (Zofran) 4 mg STK-MED ONCE .ROUTE ; Start 05/22/18 at 08:41; Stop 05/22/18 at 08:44; Status DC Rocuronium [place] (Zemuron) 100 mg STK-MED ONCE .ROUTE ; Start 05/22/18 at 08: 41; Stop 05/22/18 at 08:44; Status DC Midazolam HCl (Versed) 2 mg STK-MED ONCE .ROUTE ; Start 05/22/18 at 08:42; Stop 05/22/18 at 08:44; Status DC Fentanyl Citrate (Fentanyl 5ml Vial) 250 mcg STK-MED ONCE .ROUTE ; Start at 08:46; Stop 05/22/18 at 08:48; Status DC Ephedrine Sulfate (ePHEDrine PF IN SALINE SYRINGE) 50 mg STK-MED ONCE IV ; Start 05/22/18 at 08:47; Stop 05/22/18 at 08:48; Status DC Glycopyrrolate (Robinul) 1 mg STK-MED ONCE .ROUTE ; Start 05/22/18 at 08:47; Stop 05/22/18 at 08:49; Status DC Sodium Chloride 35 ml/Fentanyl Citrate 250 mcg/ Ropivacaine 10 ml/ Epidural Dosage Infused (Pha) 50 ml @ 0 mls/hr CONT PRN EPID SEE PROTOCOL TABLE Last administered on 05/24/18at 10:19; Start 05/22/18 at 09:30 Succinylcholine Chloride (Anectine) 200 mg STK-MED ONCE .ROUTE ; Start 05/22/18 at 09:45; Stop 05/22/18 at 09:47; Status DC Bupivacaine HCl (Sensorcaine Mpf 0.5%) 30 ml STK-MED ONCE .ROUTE ; Start at 10:53; Stop 05/22/18 at 10:56; Status DC Bupivacaine HCl (Sensorcaine-Mpf 0.25%) 10 ml STK-MED ONCE .ROUTE ; Start at 10:54; Stop 05/22/18 at 10:56; Status DC Rocuronium [place] (Zemuron) 100 mg STK-MED ONCE .ROUTE ; Start 05/22/18 at 11: 42; Stop 05/22/18 at 11:45; Status DC Propofol 20 ml @ As Directed STK-MED ONCE IV ; Start 05/22/18 at 11:43; Stop at 11:45; Status DC Phenylephrine HCl (PHENYLEPHRINE in 0.9% NACL PF) 1 mg STK-MED ONCE IV ; Start 05/22/18 at 11:43; Stop 05/22/18 at 11:45; Status DC Phenylephrine HCl (PHENYLEPHRINE in 0.9% NACL PF) 1 mg STK-MED ONCE IV ; Start 05/22/18 at 11:43; Stop 05/22/18 at 11:45; Status DC Cefazolin Sodium/ Dextrose (Ancef 2gm Premix) 2 gm STK-MED ONCE IV ; Start 05/22 at 08:00; Stop 05/22/18 at 13:23; Status DC Lidocaine HCl (Lidocaine Pf 2% Vial) 5 ml STK-MED ONCE .ROUTE ; Start 05/22/18 at 14:08; Stop 05/22/18 at 14:10; Status DC Propofol 100 ml @ As Directed STK-MED ONCE IV ; Start 05/22/18 at 14:36; Stop 05/22/18 at 14:38; Status DC Diphenhydramine HCl (Benadryl) 25 mg PRN Q6HRS PRN IV ITCHING; Start 05/22/18 at 14:45 Famotidine (Pepcid Vial) 20 mg BID IVP Last administered on 05/24/18at 21:48; Start 05/22/18 at 21:00 Info (Icu Electrolyte Protocol) 1 ea DAILY MC ; Start 05/23/18 at 09:00 Heparin Sodium (Porcine) (Heparin Sodium) 5,000 unit Q8HRS SQ Last administered on 05/25/18at 06:20; Start 05/22/18 at 22:00 Sodium Chloride (Normal Saline Flush) 3 ml QSHIFT PRN IV AFTER MEDS AND BLOOD DRAWS; Start 05/22/18 at 14:45 Oxycodone HCl (Roxicodone) 10 mg PRN Q4HRS PRN PO MODERATE PAIN, SEVERE PAIN Last administered on 05/23/18at 21:29; Start 05/22/18 at 14:45 Ketorolac Tromethamine (Toradol 15mg Vial) 15 mg PRN Q6HRS PRN IV PAIN Last administered on 05/23/18at 18:59; Start 05/22/18 at 14:45; Stop 05/24/18 at 06:31 ; Status DC Acetaminophen (Tylenol) 650 mg PRN Q6HRS PRN PO Headaches, Temp > 101.5F Last administered on 05/24/18 16:11; Start 05/22/18 at 14:45 Gabapentin (Neurontin) 600 mg Q8HRS PO Last administered on 05/23/18 21:27; Start 05/22/18 at 22:00; Stop 05/24/18 at 11:16; Status DC Naloxone HCl (Narcan) 0.4 mg PRN Q2MIN PRN IV SEE INSTRUCTIONS Last administered on 05/24/18 04:41; Start 05/22/18 at 14:45 Morphine Sulfate (Morphine Sulfate) 2 mg PRN Q1HR PRN IV PAIN; Start 05/22/18 at 14:45; Status UNV Ondansetron HCl (Zofran) 4 mg PRN Q6HRS PRN IV NAUESA, 1ST CHOICE Last administered on 05/23/18at 14:00; Start 05/22/18 at 14:45 Prochlorperazine Edisylate (Compazine) 5 mg PRN Q6HRS PRN IV N/V, 2nd Choice, MR X1; Start 05/22/18 at 14:45 Metoclopramide HCl (Reglan Vial) 5 mg PRN Q6HRS PRN IV Nausea/Vomiting, 3rd Choice Last administered on 05/24/18 16:30; Start 05/22/18 at 14:45 Senna/Docusate Sodium (Senna Plus) 1 tab BID PO Last administered on 05/23/18 21:28; Start 05/22/18 at 21:00 Docusate Sodium (Colace) 100 mg BID PO Last administered on 05/23/18 21:28; Start 05/22/18 at 21:00 Cefazolin Sodium/ Dextrose 50 ml @ 100 mls/hr Q6H IV Last administered on 05/23 04:35; Start 05/22/18 at 16:45; Stop 05/23/18 at 05:14; Status DC Metoprolol Tartrate (Lopressor) 25 mg BID PO Last administered on 05/23/18 21: 28; Start 05/22/18 at 21:00 Hydralazine HCl (Apresoline Inj) 25 mg PRN Q2HRS PRN IVP ELEVATED BP, SEE COMMENTS; Start 05/22/18 at 17:00 Insulin Human Regular (HumuLIN R VIAL) 10 unit 1X ONCE IV Last administered on 05/24/18at 06:39; Start 05/24/18 at 07:00; Stop 05/24/18 at 07:01; Status DC Dextrose (Dextrose 50%-Water Syringe) 25 gm 1X ONCE IV Last administered on 05/24/18at 06:41; Start 05/24/18 at 07:00; Stop 05/24/18 at 07:01; Status DC Albuterol Sulfate (Ventolin Neb Soln) 2.5 mg PRN Q4HRS PRN NEB SHORTNESS OF BREATH; Start 05/24/18 at 11:15 Sodium Chloride 1,000 ml @ 80 mls/hr [id number] IV Last administered on 05/25/18at 05:20; Start 05/24/18 at 14:30 Multivitamins 10 ml/Thiamine HCl 100 mg/Folic Acid 1 mg/Sodium Chloride 1,011.2 ml @ 80 mls/hr DAILY IV Last administered on 05/24/18at 15:46; Start 05/24/18 at 15:30 Piperacillin Sod/ Tazobactam Sod 4.5 gm/Sodium Chloride 100 ml @ 200 mls/hr Q6HRS IV Last administered on 05/25/18at 06:19; Start 05/24/18 at 18:00 Ketorolac Tromethamine (Toradol 15mg Vial) 15 mg PRN Q6HRS PRN IV PAIN Last administered on 05/24/18at 21:42; Start 05/24/18 at 17:15; Stop 05/29/18 at 17:14 Gabapentin (Neurontin) 600 mg TID PO ; Start 05/24/18 at 21:00 Active Scripts Active Reported Eliquis (Apixaban) 5 Mg Tablet 5 Mg PO BID Resume tomomorrow 04/05 Amlodipine Besylate 10 Mg Tablet 10 Mg PO DAILY Lisinopril-Hctz 20-12.5 Mg Tab (Lisinopril/Hydrochlorothiazide) 1 Each Tablet 1 Tab PO DAILY Allopurinol 100 Mg Tablet 100 Mg PO BID Allergies Allergies: Coded Allergies: No Known Drug Allergies (Unverified , 05/22/18) ROS General: YES: Fatigue, Other (+ fevers); No: Chills PSYCHOLOGICAL ROS: No: Anxiety, Depression Eyes: No Blurry vision, No Double vision HEENT: No: Heacaches, Sore Throat Respiratory: YES: Shortness of breath; No: Cough Cardiovascular: No Chest Pain, No Palpitations Gastrointestinal: Yes Other (see hpi); No Vomiting Genitourinary: No Dysuria, No Hematuria Musculoskeletal: No Joint Pain Neurological: Yes Confusion; No Numbness/Tingling Skin: No Pruritus, No Rash Physical Exam General: Alert, Cooperative, No acute distress HEENT: Atraumatic, PERRLA Lungs: Other (bipap in place, chest tube in place) Heart: Regular rate, Normal S1 Abdomen: Other (moderate distention, tender upper abdomen ) Extremities: No clubbing, No cyanosis Skin: No rashes, No breakdown Neuro: Normal speech, Sensation intact Psych/Mental Status: Mental status NL, Mood NL Vitals VITALS Vital Signs Date Time Temp Pulse Resp B/P (MAP) Pulse Ox O2 Delivery O2 Flow Rate FiO2 05/25/18 08:13 100 BiPAP/CPAP 05/25/18 06:00 99.5 79 22 125/55 (78) 99.5 05/25/18 04:15 4.0 Labs Labs Laboratory Tests Test 05/24/18 05:00 05/24/18 07:30 05/24/18 07:40 05/24/18 10:30 White Blood Count 16.7 x10^3/uL (4.0-11.0) Red Blood Count 4.62 x10^6/uL (4.30-5.70) Hemoglobin 12.6 g/dL (13.0-17.5) Hematocrit 40.2 % (39.0-53.0) Mean Corpuscular Volume 87 fL (79-100) Mean Corpuscular Hemoglobin 27 pg (25-35) Mean Corpuscular Hemoglobin Concent 31 g/dL (31-37) Red Cell Distribution Width 16.0 % (11.5-14.5) Platelet Count 338 x10^3/uL (140-400) Sodium Level 128 mmol/L (136-145) Potassium Level 6.2 mmol/L (3.5-5.1) 5.3 mmol/L (3.5-5.1) Chloride Level 96 mmol/L (98-107) Carbon Dioxide Level 27 mmol/L (21-32) Anion Gap 5 (6-14) Blood Urea Nitrogen 24 mg/dL (8-26) Creatinine 1.4 mg/dL (0.7-1.3) Estimated GFR (Cockcroft-Gault) 52.1 Glucose Level 147 mg/dL (70-99) Calcium Level 8.5 mg/dL (8.5-10.1) Troponin I Quantitative 0.021 ng/mL (0.000-0.055) O2 Saturation 97 % (92-99) 92 % (92-99) Arterial Blood pH 7.23 (7.35-7.45) 7.24 (7.35-7.45) Arterial Blood pCO2 at Patient Temp 65 mmHg (35-46) 55 mmHg (35-46) Arterial Blood pO2 at Patient Temp 89 mmHg (75-108) 66 mmHg (75-108) Arterial Blood HCO3 27 mmol/L (21-28) 23 mmol/L (21-28) Arterial Blood Base Excess -2 mmol/L (-3-3) -5 mmol/L (-3-3) FiO2 36 30 Test 05/24/18 14:20 05/24/18 14:26 05/24/18 17:30 05/24/18 19:30 Potassium Level 5.1 mmol/L (3.5-5.1) O2 Saturation 93 % (92-99) 96 % (92-99) Arterial Blood pH 7.30 (7.35-7.45) 7.34 (7.35-7.45) Arterial Blood pCO2 at Patient Temp 60 mmHg (35-46) 50 mmHg (35-46) Arterial Blood pO2 at Patient Temp 71 mmHg (75-108) 79 mmHg (75-108) Arterial Blood HCO3 29 mmol/L (21-28) 26 mmol/L (21-28) Arterial Blood Base Excess 1 mmol/L (-3-3) 0 mmol/L (-3-3) FiO2 30 30 Lactic Acid Level 1.0 mmol/L (0.4-2.0) Test 05/24/18 22:26 05/25/18 06:15 O2 Saturation 98 % (92-99) Arterial Blood pH 7.41 (7.35-7.45) Arterial Blood pCO2 at Patient Temp 38 mmHg (35-46) Arterial Blood pO2 at Patient Temp 101 mmHg (75-108) Arterial Blood HCO3 24 mmol/L (21-28) Arterial Blood Base Excess -1 mmol/L (-3-3) FiO2 30 White Blood Count 11.1 x10^3/uL (4.0-11.0) Red Blood Count 3.86 x10^6/uL (4.30-5.70) Hemoglobin 10.7 g/dL (13.0-17.5) Hematocrit 33.0 % (39.0-53.0) Mean Corpuscular Volume 86 fL (79-100) Mean Corpuscular Hemoglobin 28 pg (25-35) Mean Corpuscular Hemoglobin Concent 32 g/dL (31-37) Red Cell Distribution Width 15.7 % (11.5-14.5) Platelet Count 223 x10^3/uL (140-400) Sodium Level 134 mmol/L (136-145) Potassium Level 4.5 mmol/L (3.5-5.1) Chloride Level 101 mmol/L (98-107) Carbon Dioxide Level 27 mmol/L (21-32) Anion Gap 6 (6-14) Blood Urea Nitrogen 34 mg/dL (8-26) Creatinine 1.4 mg/dL (0.7-1.3) Estimated GFR (Cockcroft-Gault) 52.1 Glucose Level 107 mg/dL (70-99) Calcium Level 8.1 mg/dL (8.5-10.1) Laboratory Tests Test 05/24/18 10:30 05/24/18 14:20 05/24/18 14:26 05/24/18 17:30 O2 Saturation 92 % (92-99) 93 % (92-99) 96 % (92-99) Arterial Blood pH 7.24 (7.35-7.45) 7.30 (7.35-7.45) 7.34 (7.35-7.45) Arterial Blood pCO2 at Patient Temp 55 mmHg (35-46) 60 mmHg (35-46) 50 mmHg (35-46) Arterial Blood pO2 at Patient Temp 66 mmHg (75-108) 71 mmHg (75-108) 79 mmHg (75-108) Arterial Blood HCO3 23 mmol/L (21-28) 29 mmol/L (21-28) 26 mmol/L (21-28) Arterial Blood Base Excess -5 mmol/L (-3-3) 1 mmol/L (-3-3) 0 mmol/L (-3-3) FiO2 30 30 30 Potassium Level 5.1 mmol/L (3.5-5.1) Test 05/24/18 19:30 05/24/18 22:26 05/25/18 06:15 Lactic Acid Level 1.0 mmol/L (0.4-2.0) O2 Saturation 98 % (92-99) Arterial Blood pH 7.41 (7.35-7.45) Arterial Blood pCO2 at Patient Temp 38 mmHg (35-46) Arterial Blood pO2 at Patient Temp 101 mmHg (75-108) Arterial Blood HCO3 24 mmol/L (21-28) Arterial Blood Base Excess -1 mmol/L (-3-3) FiO2 30 White Blood Count 11.1 x10^3/uL (4.0-11.0) Red Blood Count 3.86 x10^6/uL (4.30-5.70) Hemoglobin 10.7 g/dL (13.0-17.5) Hematocrit 33.0 % (39.0-53.0) Mean Corpuscular Volume 86 fL (79-100) Mean Corpuscular Hemoglobin 28 pg (25-35) Mean Corpuscular Hemoglobin Concent 32 g/dL (31-37) Red Cell Distribution Width 15.7 % (11.5-14.5) Platelet Count 223 x10^3/uL (140-400) Sodium Level 134 mmol/L (136-145) Potassium Level 4.5 mmol/L (3.5-5.1) Chloride Level 101 mmol/L (98-107) Carbon Dioxide Level 27 mmol/L (21-32) Anion Gap 6 (6-14) Blood Urea Nitrogen 34 mg/dL (8-26) Creatinine 1.4 mg/dL (0.7-1.3) Estimated GFR (Cockcroft-Gault) 52.1 Glucose Level 107 mg/dL (70-99) Calcium Level 8.1 mg/dL (8.5-10.1) Assessment/Plan Assessment/Plan s/p lobectomy,METASTATIC ADENOCARCINOMA fevers, AMS, abdominal distention, pain CT with colonic ileus, rectal thickening would keep NPO, GI consult pending LUIS GIRALDO MD 05/25/18 1050: CONSULT Assessment/Plan Assessment/Plan Patient seen and examined by me currently sitting up in chair comfortably does describe some distention of his abdomen minimal pain. Patient is having watery loose stools. CT scan reviewed showing distended colon no free air no small bowel distention. Agree with Robert assessment and plan maintain nothing by mouth check stool for C. difficile appreciate GIs recommendations BHAVIN RETANA APRN May 25, 2018 08:34 LUIS GIRALDO MD May 25, 2018 10:50
[2018-05-25 08:39] LABS: PCO2 ABG 45 mmHg (35-46); PO2 ABG 89 mmHg (75-108)
[2018-05-25 08:40] LABS: BASE EXCESS ABG -1 mmol/L (-3-3); FIO2 ABG 30; HCO3 ABG 25 mmol/L (21-28); SAT O2 ABG 96 % (92-99)
[2018-05-25] MEDS: ELECTROLYTE (ICU) PROTOCOL. MC SCH (08:41)
[2018-05-25] MEDS: FAMOTIDINE 20 MG/2 ML VIAL IVP SCH ×2 (08:41→21:38)
[2018-05-25] MEDS: METOPROLOL TART IMMED RELEASE 25 MG TABLET. PO SCH ×2 (08:42→21:37)
[2018-05-25] MEDS: GABAPENTIN 300 MG CAPSULE. PO SCH ×3 (08:42→21:37)
[2018-05-25] MEDS: DOCUSATE SODIUM 100 MG CAPSULE. PO SCH ×2 (08:42→21:37)
[2018-05-25] MEDS: SENNOSIDES/DOCUSATE 8.6/50MG TABLET. PO SCH ×2 (08:42→21:37)
[2018-05-25] MEDS: MULTIVIT INFUSN,ADULT 4,VIT K 10 ML, THIAMINE INJ 100 MG, FOLIC ACID INJ 1 MG in IV NOR... IV SCH (08:45)
[2018-05-25] MEDS: KETOROLAC 15 MG/ML VIAL. IV PRN ×2 (09:26→14:46)
--- NOTE | 2018-05-25 11:25 | PDOC ---
PULMONARY PROGRESS NOTES Subjective OFF BIPAP MORE AWAKE AND ALERT Vitals Vital Signs Date Time Temp Pulse Resp B/P (MAP) Pulse Ox O2 Delivery O2 Flow Rate FiO2 05/25/18 08:13 100 BiPAP/CPAP 05/25/18 06:00 99.5 79 22 125/55 (78) 99.5 05/25/18 04:15 4.0 General: Lethargic Lungs: Crackles Cardiovascular: S1, S2 Abdomen: Soft, Other (DISTENDED) Extremities: Other (EDEMA) Skin: Warm Labs Laboratory Tests Test 05/24/18 05:00 05/24/18 07:30 05/24/18 07:40 05/24/18 10:30 White Blood Count 16.7 x10^3/uL (4.0-11.0) Red Blood Count 4.62 x10^6/uL (4.30-5.70) Hemoglobin 12.6 g/dL (13.0-17.5) Hematocrit 40.2 % (39.0-53.0) Mean Corpuscular Volume 87 fL (79-100) Mean Corpuscular Hemoglobin 27 pg (25-35) Mean Corpuscular Hemoglobin Concent 31 g/dL (31-37) Red Cell Distribution Width 16.0 % (11.5-14.5) Platelet Count 338 x10^3/uL (140-400) Sodium Level 128 mmol/L (136-145) Potassium Level 6.2 mmol/L (3.5-5.1) 5.3 mmol/L (3.5-5.1) Chloride Level 96 mmol/L (98-107) Carbon Dioxide Level 27 mmol/L (21-32) Anion Gap 5 (6-14) Blood Urea Nitrogen 24 mg/dL (8-26) Creatinine 1.4 mg/dL (0.7-1.3) Estimated GFR (Cockcroft-Gault) 52.1 Glucose Level 147 mg/dL (70-99) Calcium Level 8.5 mg/dL (8.5-10.1) Troponin I Quantitative 0.021 ng/mL (0.000-0.055) O2 Saturation 97 % (92-99) 92 % (92-99) Arterial Blood pH 7.23 (7.35-7.45) 7.24 (7.35-7.45) Arterial Blood pCO2 at Patient Temp 65 mmHg (35-46) 55 mmHg (35-46) Arterial Blood pO2 at Patient Temp 89 mmHg (75-108) 66 mmHg (75-108) Arterial Blood HCO3 27 mmol/L (21-28) 23 mmol/L (21-28) Arterial Blood Base Excess -2 mmol/L (-3-3) -5 mmol/L (-3-3) FiO2 36 30 Test 05/24/18 14:20 05/24/18 14:26 05/24/18 17:30 05/24/18 19:30 Potassium Level 5.1 mmol/L (3.5-5.1) O2 Saturation 93 % (92-99) 96 % (92-99) Arterial Blood pH 7.30 (7.35-7.45) 7.34 (7.35-7.45) Arterial Blood pCO2 at Patient Temp 60 mmHg (35-46) 50 mmHg (35-46) Arterial Blood pO2 at Patient Temp 71 mmHg (75-108) 79 mmHg (75-108) Arterial Blood HCO3 29 mmol/L (21-28) 26 mmol/L (21-28) Arterial Blood Base Excess 1 mmol/L (-3-3) 0 mmol/L (-3-3) FiO2 30 30 Lactic Acid Level 1.0 mmol/L (0.4-2.0) Test 05/24/18 22:26 05/25/18 06:15 05/25/18 08:15 O2 Saturation 98 % (92-99) 96 % (92-99) Arterial Blood pH 7.41 (7.35-7.45) 7.36 (7.35-7.45) Arterial Blood pCO2 at Patient Temp 38 mmHg (35-46) 45 mmHg (35-46) Arterial Blood pO2 at Patient Temp 101 mmHg (75-108) 89 mmHg (75-108) Arterial Blood HCO3 24 mmol/L (21-28) 25 mmol/L (21-28) Arterial Blood Base Excess -1 mmol/L (-3-3) -1 mmol/L (-3-3) FiO2 30 30 White Blood Count 11.1 x10^3/uL (4.0-11.0) Red Blood Count 3.86 x10^6/uL (4.30-5.70) Hemoglobin 10.7 g/dL (13.0-17.5) Hematocrit 33.0 % (39.0-53.0) Mean Corpuscular Volume 86 fL (79-100) Mean Corpuscular Hemoglobin 28 pg (25-35) Mean Corpuscular Hemoglobin Concent 32 g/dL (31-37) Red Cell Distribution Width 15.7 % (11.5-14.5) Platelet Count 223 x10^3/uL (140-400) Sodium Level 134 mmol/L (136-145) Potassium Level 4.5 mmol/L (3.5-5.1) Chloride Level 101 mmol/L (98-107) Carbon Dioxide Level 27 mmol/L (21-32) Anion Gap 6 (6-14) Blood Urea Nitrogen 34 mg/dL (8-26) Creatinine 1.4 mg/dL (0.7-1.3) Estimated GFR (Cockcroft-Gault) 52.1 Glucose Level 107 mg/dL (70-99) Calcium Level 8.1 mg/dL (8.5-10.1) Phosphorus Level 3.1 mg/dL (2.6-4.7) Magnesium Level 2.2 mg/dL (1.8-2.4) Laboratory Tests Test 05/24/18 14:20 05/24/18 14:26 05/24/18 17:30 05/24/18 19:30 Potassium Level 5.1 mmol/L (3.5-5.1) O2 Saturation 93 % (92-99) 96 % (92-99) Arterial Blood pH 7.30 (7.35-7.45) 7.34 (7.35-7.45) Arterial Blood pCO2 at Patient Temp 60 mmHg (35-46) 50 mmHg (35-46) Arterial Blood pO2 at Patient Temp 71 mmHg (75-108) 79 mmHg (75-108) Arterial Blood HCO3 29 mmol/L (21-28) 26 mmol/L (21-28) Arterial Blood Base Excess 1 mmol/L (-3-3) 0 mmol/L (-3-3) FiO2 30 30 Lactic Acid Level 1.0 mmol/L (0.4-2.0) Test 05/24/18 22:26 05/25/18 06:15 05/25/18 08:15 O2 Saturation 98 % (92-99) 96 % (92-99) Arterial Blood pH 7.41 (7.35-7.45) 7.36 (7.35-7.45) Arterial Blood pCO2 at Patient Temp 38 mmHg (35-46) 45 mmHg (35-46) Arterial Blood pO2 at Patient Temp 101 mmHg (75-108) 89 mmHg (75-108) Arterial Blood HCO3 24 mmol/L (21-28) 25 mmol/L (21-28) Arterial Blood Base Excess -1 mmol/L (-3-3) -1 mmol/L (-3-3) FiO2 30 30 White Blood Count 11.1 x10^3/uL (4.0-11.0) Red Blood Count 3.86 x10^6/uL (4.30-5.70) Hemoglobin 10.7 g/dL (13.0-17.5) Hematocrit 33.0 % (39.0-53.0) Mean Corpuscular Volume 86 fL (79-100) Mean Corpuscular Hemoglobin 28 pg (25-35) Mean Corpuscular Hemoglobin Concent 32 g/dL (31-37) Red Cell Distribution Width 15.7 % (11.5-14.5) Platelet Count 223 x10^3/uL (140-400) Sodium Level 134 mmol/L (136-145) Potassium Level 4.5 mmol/L (3.5-5.1) Chloride Level 101 mmol/L (98-107) Carbon Dioxide Level 27 mmol/L (21-32) Anion Gap 6 (6-14) Blood Urea Nitrogen 34 mg/dL (8-26) Creatinine 1.4 mg/dL (0.7-1.3) Estimated GFR (Cockcroft-Gault) 52.1 Glucose Level 107 mg/dL (70-99) Calcium Level 8.1 mg/dL (8.5-10.1) Phosphorus Level 3.1 mg/dL (2.6-4.7) Magnesium Level 2.2 mg/dL (1.8-2.4) Medications Active Scripts Medications Dose Route/Sig Max Daily Dose Days Date Category Dose Instructions Eliquis (Apixaban) 5 Mg Tablet 5 Mg PO BID 12/05/17 Reported Resume tomomorrow 04/05 Amlodipine Besylate 10 Mg Tablet 10 Mg PO DAILY 12/01/17 Reported Lisinopril-Hctz 20-12.5 Mg Tab (Lisinopril/Hydrochlorothiazide) 1 Each Tablet 1 Tab PO DAILY 12/01/17 Reported Allopurinol 100 Mg Tablet 100 Mg PO BID 12/01/17 Reported Impression . IMPRESSION: 1. Expected respiratory failure after surgical intervention for lung cancer. 2. Status post left posterior lateral thoracotomy, left upper lobectomy, mediastinal lymphadenopathy. 3. Tobacco dependence, in remission, quit 14 years ago. 4. 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 5. HYPERCAPNIA 6 METABOLIC ENCEPHALOPATHY 7. SUBCUTANEOUS EMPHYSEMA 8. PSEUDOOBSTRUCTION COLON Plan . D/W GI OK TO PROCEED WITH NEOSTIGMINE D/W FAMILY CONTINUE BIPAP QHS AND PRN REPEAT ABG NOTED FINAL PATH PENDING CHEST TUBE PER DAIN CARDENAS MD May 25, 2018 11:25
--- NOTE | 2018-05-25 11:57 | PDOC2 ---
GI CONSULT Reason For Consult: Abdominal distension. HPI: HPI: Jaylon Gavin is a a 58 years old male patient with past medical history of obesity, hypertension, hyperlipidemia and pulmonary embolism. 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 Patient underwent left posterolateral thoracotomy with left upper lobectomy and mediastinal lymph nodes dissection on 05/22/2018. The surgery was uneventful with estimated blood loss documented to be 200ml.The pathologic report was notable for invasive, moderate to poorly differentiated adenosquamous carcinoma with focal pleural and vascular invasion. There was also evidence of mets to peribronchial and mediastinal lymph nodes. GI is now consulted for abdominal distension and abnormal imaging of abdomen with CT that showed diffuse colonic dilation of the colon with no evidence of mechanical obstruction. Patient was seen this morning. He was sitting on chair at time of exam. He reports he has passed gas and "liquid" stool this morning. He reports he still has abdominal discomfort and distension though he feels mildly better compared to yesterday. He denies vomiting. He has no fever overnight. He denies hematemesis, melena or hematochezia. He never had colonoscopy done in the past. No family history of colorectal cancer. PMH: PMH: Obesity, hypertension, hyperlipidemia and pulmonary embolism. FH: Family History: No pertinent hx Social History: Smoke: No ALCOHOL: none Drugs: None ROS: GEN: Denies fever. HEENT: Denies blurred vision, sore throat CV: Denies chest pain. RESP: Denies shortness of air, cough GI: Per HPI : Denies hematuria, dysuria ENDO: Denies weight changes NEURO: Denies confusion, dizziness SKIN: Denies jaundice, pruritus Vitals: Vitals: Vital Signs Date Time Temp Pulse Resp B/P (MAP) Pulse Ox O2 Delivery O2 Flow Rate FiO2 05/25/18 08:13 100 BiPAP/CPAP 05/25/18 06:00 99.5 79 22 125/55 (78) 99.5 05/25/18 04:15 4.0 Labs: Labs: Laboratory Tests Test 05/24/18 14:20 05/24/18 14:26 05/24/18 17:30 05/24/18 19:30 Potassium Level 5.1 mmol/L (3.5-5.1) O2 Saturation 93 % (92-99) 96 % (92-99) Arterial Blood pH 7.30 (7.35-7.45) 7.34 (7.35-7.45) Arterial Blood pCO2 at Patient Temp 60 mmHg (35-46) 50 mmHg (35-46) Arterial Blood pO2 at Patient Temp 71 mmHg (75-108) 79 mmHg (75-108) Arterial Blood HCO3 29 mmol/L (21-28) 26 mmol/L (21-28) Arterial Blood Base Excess 1 mmol/L (-3-3) 0 mmol/L (-3-3) FiO2 30 30 Lactic Acid Level 1.0 mmol/L (0.4-2.0) Test 05/24/18 22:26 05/25/18 06:15 05/25/18 08:15 O2 Saturation 98 % (92-99) 96 % (92-99) Arterial Blood pH 7.41 (7.35-7.45) 7.36 (7.35-7.45) Arterial Blood pCO2 at Patient Temp 38 mmHg (35-46) 45 mmHg (35-46) Arterial Blood pO2 at Patient Temp 101 mmHg (75-108) 89 mmHg (75-108) Arterial Blood HCO3 24 mmol/L (21-28) 25 mmol/L (21-28) Arterial Blood Base Excess -1 mmol/L (-3-3) -1 mmol/L (-3-3) FiO2 30 30 White Blood Count 11.1 x10^3/uL (4.0-11.0) Red Blood Count 3.86 x10^6/uL (4.30-5.70) Hemoglobin 10.7 g/dL (13.0-17.5) Hematocrit 33.0 % (39.0-53.0) Mean Corpuscular Volume 86 fL (79-100) Mean Corpuscular Hemoglobin 28 pg (25-35) Mean Corpuscular Hemoglobin Concent 32 g/dL (31-37) Red Cell Distribution Width 15.7 % (11.5-14.5) Platelet Count 223 x10^3/uL (140-400) Sodium Level 134 mmol/L (136-145) Potassium Level 4.5 mmol/L (3.5-5.1) Chloride Level 101 mmol/L (98-107) Carbon Dioxide Level 27 mmol/L (21-32) Anion Gap 6 (6-14) Blood Urea Nitrogen 34 mg/dL (8-26) Creatinine 1.4 mg/dL (0.7-1.3) Estimated GFR (Cockcroft-Gault) 52.1 Glucose Level 107 mg/dL (70-99) Calcium Level 8.1 mg/dL (8.5-10.1) Phosphorus Level 3.1 mg/dL (2.6-4.7) Magnesium Level 2.2 mg/dL (1.8-2.4) Allergies: Coded Allergies: No Known Drug Allergies (Unverified , 05/22/18) Medications: Current Medications Medications (Trade) Dose Ordered Sig/Frankie Route PRN Reason Start Time Stop Time Status Last Admin Dose Admin Sodium Chloride 1,000 ml @ 80 mls/hr [id number] IV 05/24/18 14:30 05/25/18 05:20 Multivitamins 10 ml/Thiamine HCl 100 mg/Folic Acid 1 mg/Sodium Chloride 1,011.2 ml @ 80 mls/hr DAILY IV 05/24/18 15:30 05/25/18 08:45 Piperacillin Sod/ Tazobactam Sod 4.5 gm/Sodium Chloride 100 ml @ 200 mls/hr Q6HRS IV 05/24/18 18:00 05/25/18 06:19 Ketorolac Tromethamine (Toradol 15mg Vial) 15 mg PRN Q6HRS PRN IV PAIN 05/24/18 17:15 05/29/18 17:14 05/25/18 09:26 PE: GEN: NAD HEENT: Atraumatic, PERRLA LUNGS: CTAB HEART: S1 and S2 heard. ABD: Abdomen is distended. It is tense to palpation. No rebound tenderness. High pitched bowel sounds. 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 GI consulted for abdominal pain and distension. Patient examined at bed side. No sign of peritonitis. Labs notable for normocytic anemia with Hgb 10.7. Cr elevated to 1.4. CT was notable for colonic dilation of the colon with inflammatory changes in right paracolic gutter and circumferential wall thickening of the rectum. Discussed with radiologist business operations specialist and noted that the cecum was distended to 12.7cm in diameter. Patient may have acute colonic pseudo -obstruction ( Chinyere' syndrome) in setting of recent surgery. However, we can not rule out C.diff. Recommendations - NPO. - IVFs. - Monitor lytes and replace as needed. - Encourage patient to ambulate. - Attempt to avoid or minimize narcotics. - Stool studies to rule out C.diff. - Serial abdominal exam and KUB. - Consider to give 1.5mg neostigmine ( If C.diff is negative). Patient needs to be closely monitored while administering neostigmine slowly. Please also ensure to have atropine at bed side. - We will plan colonic decompression if he has no improvement with conservative management. - GI available for any Q's. Thank you for involving us in the care of this interesting patient. AP GILL MD May 25, 2018 11:57
--- NOTE | 2018-05-25 14:13 | PDOC ---
Progress Note Subjective Subjective Much better today. Alert and oriented. Hypercapnia resolved. Off resolved. No air leak, minimal output. Normotensive and SR. Colonic ileus on CT abdomen. Small BMs today. CXR shows reduced left lung volume ROS ROS No nausea No vomiting No pain No rash Vital Sign Vital Signs Vital Signs Date Time Temp Pulse Resp B/P (MAP) Pulse Ox O2 Delivery O2 Flow Rate FiO2 05/25/18 08:13 100 BiPAP/CPAP 05/25/18 06:00 99.5 79 22 125/55 (78) 99.5 05/25/18 04:15 4.0 Physical Exam PHYSICAL EXAM GENERAL: NAD, Alert HEENT: PERRL, OC/OP NECK: Supple, no JVD, no LN LUNGS: Clear HEART: S1S2, no gallop, no murmur ABD: Soft, NT, no organomegaly, no rebound EXT: No edema, no cyanosis CNC OPERATOR: Alert, oriented x 3, no focal neurologic deficit SKIN: No rash IV: ok Labs Lab Laboratory Tests Test 05/24/18 14:20 05/24/18 14:26 05/24/18 17:30 05/24/18 19:30 Potassium Level 5.1 mmol/L (3.5-5.1) O2 Saturation 93 % (92-99) 96 % (92-99) Arterial Blood pH 7.30 (7.35-7.45) 7.34 (7.35-7.45) Arterial Blood pCO2 at Patient Temp 60 mmHg (35-46) 50 mmHg (35-46) Arterial Blood pO2 at Patient Temp 71 mmHg (75-108) 79 mmHg (75-108) Arterial Blood HCO3 29 mmol/L (21-28) 26 mmol/L (21-28) Arterial Blood Base Excess 1 mmol/L (-3-3) 0 mmol/L (-3-3) FiO2 30 30 Lactic Acid Level 1.0 mmol/L (0.4-2.0) Test 05/24/18 22:26 05/25/18 06:15 05/25/18 08:15 O2 Saturation 98 % (92-99) 96 % (92-99) Arterial Blood pH 7.41 (7.35-7.45) 7.36 (7.35-7.45) Arterial Blood pCO2 at Patient Temp 38 mmHg (35-46) 45 mmHg (35-46) Arterial Blood pO2 at Patient Temp 101 mmHg (75-108) 89 mmHg (75-108) Arterial Blood HCO3 24 mmol/L (21-28) 25 mmol/L (21-28) Arterial Blood Base Excess -1 mmol/L (-3-3) -1 mmol/L (-3-3) FiO2 30 30 White Blood Count 11.1 x10^3/uL (4.0-11.0) Red Blood Count 3.86 x10^6/uL (4.30-5.70) Hemoglobin 10.7 g/dL (13.0-17.5) Hematocrit 33.0 % (39.0-53.0) Mean Corpuscular Volume 86 fL (79-100) Mean Corpuscular Hemoglobin 28 pg (25-35) Mean Corpuscular Hemoglobin Concent 32 g/dL (31-37) Red Cell Distribution Width 15.7 % (11.5-14.5) Platelet Count 223 x10^3/uL (140-400) Sodium Level 134 mmol/L (136-145) Potassium Level 4.5 mmol/L (3.5-5.1) Chloride Level 101 mmol/L (98-107) Carbon Dioxide Level 27 mmol/L (21-32) Anion Gap 6 (6-14) Blood Urea Nitrogen 34 mg/dL (8-26) Creatinine 1.4 mg/dL (0.7-1.3) Estimated GFR (Cockcroft-Gault) 52.1 Glucose Level 107 mg/dL (70-99) Calcium Level 8.1 mg/dL (8.5-10.1) Phosphorus Level 3.1 mg/dL (2.6-4.7) Magnesium Level 2.2 mg/dL (1.8-2.4) Objective Assessment POD#3, s/p left upper lobectomy and mediastinal lymphadenectomy Much better today. Alert and oriented. Hypercapnia resolved. Off resolved. No air leak, minimal output. Normotensive and SR. Colonic ileus on CT abdomen CXR shows reduced left lung volume Plan Plan of Care D/c one chest tube today Keep other tube to water seal-will d/c tomorrow D/c epidural IVF NPO per GI Neostigmine OK Keep fernandez until he has a BM, otherwise high risk of retention Incentive spirometry and ambulation Heparin s/q for DVT prophylaxis TSIOURIS,ATHANASIOS MD May 25, 2018 14:13
[2018-05-25] MEDS ORDERED: ATROPINE 1 MG/10 ML DISP.SYRINGE. IV PRN (17:15)
[2018-05-25] MEDS ORDERED: NEOSTIGMINE 10 MG/10 ML VIAL. IV ONE (17:15)
--- NOTE | 2018-05-25 21:23 | RAD ---
EXAM: Supine AP view of the abdomen DATE: 05/25/2018 4:14 PM INDICATION: DISTENTION COMPARISON: No Prior FINDINGS: There is diffuse dilation of the colon measuring up to 12.7 cm in transverse dimension at the level of the cecum and in the transverse colon measuring about 8.5 cm. Although this may be from distal obstruction, ileus may have similar appearance. No abnormal soft tissue mass effect. No suspicious calcifications are seen. Evaluation for free intraperitoneal gas is limited on this supine exam. Right femoral IM nail is partially profiled. IMPRESSION: 1. No evidence for bowel obstruction. Electronically signed by: Dennis Bowen MD (05/25/2018 9:18 PM) [facility]
[2018-05-26] VITALS (24 sets, daily range): BP systolic 87–176; BP diastolic 40–70
[2018-05-26] MEDS: PIPERACILLIN/TAZOBACTAM 4.5 GM in IV NORMAL SALINE 100ML 100 ML IV SCH ×4 (00:07→18:31)
[2018-05-26] MEDS: KETOROLAC 15 MG/ML VIAL. IV PRN ×2 (02:56→18:23)
[2018-05-26] MEDS: HEPARIN for SUB-Q USE 5,000 UNIT/ML VIAL. SQ SCH ×3 (06:18→21:34)
--- NOTE | 2018-05-26 07:56 | RAD ---
Chest radiograph 05/26/2018 7:04 AM INDICATION: Status post left upper lobectomy. COMPARISON: May 25, 2018 TECHNIQUE: Portable upright frontal view of the chest is provided. FINDINGS: The cardiomediastinal silhouette is similar in appearance. Right upper extremity PICC is in similar position. Left sided thoracostomy tubes appear retracted compared to the prior examination. There is elevation left hemidiaphragm with small left pleural effusion and left basilar subsegmental atelectasis versus infiltrate. There is a rounded opacity in the left upper lung which may represent lobar atelectasis. No definite pneumothorax. IMPRESSION: Interval retraction of left-sided thoracostomy tubes compared to prior examination. There may be interval removal of at least one catheter. There is similar rounded opacity in the left upper lobe which may represent atelectasis. There is elevation of left hemidiaphragm suggestive of overall volume loss. Left lower lobe opacity may represent subsegmental atelectasis versus infiltrate. Electronically signed by: Fatou Chavis MD (05/26/2018 7:51 AM) [facility]
--- NOTE | 2018-05-26 08:14 | PDOC2 ---
GI CONSULT FH: Family History: No pertinent hx Social History: Smoke: No ALCOHOL: none Drugs: None ROS: GEN: Denies fevers, chills, sweats HEENT: Denies blurred vision, sore throat CV: Denies chest pain RESP: Denies shortness of air, cough GI: Per HPI : Denies hematuria, dysuria ENDO: Denies weight changes NEURO: Denies confusion, dizziness MSK: Denies weakness, joint pain/swelling SKIN: Denies jaundice, pruritus Vitals: Vitals: Vital Signs Date Time Temp Pulse Resp B/P (MAP) Pulse Ox O2 Delivery O2 Flow Rate FiO2 05/26/18 07:00 72 14 101/40 (60) 95 Nasal Cannula 2.0 05/26/18 04:00 97.8 97.8 Labs: Labs: Laboratory Tests Test 05/25/18 08:15 O2 Saturation 96 % (92-99) Arterial Blood pH 7.36 (7.35-7.45) Arterial Blood pCO2 at Patient Temp 45 mmHg (35-46) Arterial Blood pO2 at Patient Temp 89 mmHg (75-108) Arterial Blood HCO3 25 mmol/L (21-28) Arterial Blood Base Excess -1 mmol/L (-3-3) FiO2 30 Allergies: Coded Allergies: No Known Drug Allergies (Unverified , 05/22/18) Medications: Current Medications Medications (Trade) Dose Ordered Sig/Frankie Route PRN Reason Start Time Stop Time Status Last Admin Dose Admin Neostigmine Methylsulfate (Bloxiverz) 1.5 mg 1X ONCE IV 05/25/18 17:15 05/25/18 17:16 DC 05/25/18 17:22 PE: GEN: NAD HEENT: Atraumatic, PERRLA LUNGS: CTAB HEART: RRR, no murmurs ABD: NABS, S/ND/NT, no masses EXTREMITY: No edema SKIN: No rashes, no jaundice NEURO/PSYCH: A & O �3 AP GILL MD May 26, 2018 08:14
--- NOTE | 2018-05-26 08:17 | PDOC ---
Subjective: Subjective: Patient was examined this morning. He received neostigmine last night with no event. He had passed gas and small liquid bowel movement. However, his abdomen remain distended. No other complaints. Objective: Vital Signs: Vital Signs Date Time Temp Pulse Resp B/P (MAP) Pulse Ox O2 Delivery O2 Flow Rate FiO2 05/26/18 07:00 72 14 101/40 (60) 95 Nasal Cannula 2.0 05/26/18 04:00 97.8 97.8 Labs: RUN DATE: 05/26/18 PAGE 1 RUN TIME: [id number] [facility] [address] [place] [address] Ifeanyi Schmidt M.D., Post Anesthesia Nurse PATIENT: RASHID MCMAHAN ACCT: [id number] LOC: 1 [facility] ICU U : [id number] AGE/SX: 58/M ROOM: 104 REG : 05/22/[address]: NAMRATA WYATT MD : 1960 BED: 1 DIS : STATUS: ADM IN TLOC: SPEC #: [id number] LUIS MIGUEL: 05/24/18 STATUS: COMP REQ #: [id number] RECD: 05/24/[address]: DAIN CÁRDENAS MD SOURCE: BLOOD ENTR: 05/24/[address]: DANIE SCHMITZ MD SPDESC: USMAN,YULIET V MD GREENBERG,NAMRATA EMANUEL MD, MD ORDERED: BCULT Procedure Result BLOOD CULTURE Final GRAM POSITIVE COCCI IN CLUSTERS 1 SET DRAWN, 2 OF 2 POSITIVE CALLED TO CLAYTON DAWSON RN IN ICU BY Laura CLARKE,05/26/18,0745 SPECIMEN SENDING TO [employer] FOR FURTHER WORK UP Imaging: PATIENT: RASHID MCMAHAN ACCOUNT: [id number] : 1960 LOCATION: [address] [place] [address] AGE: 58 SEX: M EXAM STATUS: ADM IN ORD. PHYSICIAN: AP GILL MD REASON: distended bowel /TO BE DONE AT 4:00PM PER NURSE PROCEDURE: KUB EXAM: Supine AP view of the abdomen DATE: 05/25/2018 4:14 PM INDICATION: DISTENTION COMPARISON: No Prior FINDINGS: There is diffuse dilation of the colon measuring up to 12.7 cm in transverse dimension at the level of the cecum and in the transverse colon measuring about 8.5 cm. Although this may be from distal obstruction, ileus may have similar appearance. No abnormal soft tissue mass effect. No suspicious calcifications are seen. Evaluation for free intraperitoneal gas is limited on this supine exam. Right femoral IM nail is partially profiled. IMPRESSION: 1. No evidence for bowel obstruction. Electronically signed by: Dennis Alfonso MD (05/25/2018 9:18 PM) [facility] DICTATED and SIGNED BY: DENNIS ALFONSO MD PE: GEN: NAD HEENT: Atraumatic, PERRLA LUNGS: Good air entry. HEART: RRR, no murmurs ABD: The abdomen is distended and tense on exam. No rebound tenderness. 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 GI consulted for abdominal pain and distension. Imaging of the CT notable for colonic dilation with Cecum dilated to 12.7cm. He may have acute colonic pseudo-obstruction ( Chinyere' syndrome) in setting of recent surgery versus C.diff.colitis. Stool studies were sent yesterday. However, we have not received the report yet. Patient received neostigmine last night with no significant improvement of the abdominal distension. On reviewing his labs, noted that he has Gram Positive Cocci in clusters (2/2). Recommendations - NPO. - IVFs. - Antimicrobial therapy as per primary team ( for reported bacteremia). - The C.diff report is not available as of this morning. Recommend to empirically treat him with oral Vancomycin and iv Flagyl pending C.diff report. - Monitor lytes and replace as needed. - Encourage patient to ambulate. - Attempt to avoid or minimize narcotics. - Serial abdominal exam and KUB. - Proceed with colonic decompression with continued abdominal distension. - GI available for any Q's. Thank you for involving us in the care of this interesting patient. AP GILL MD May 26, 2018 08:17
--- NOTE | 2018-05-26 08:27 | PDOC ---
BHAVIN RETANA ORACLE IAM CONSULTANT 05/26/18 0827: SURGICAL PROGRESS NOTE Subjective drowsy, awakes for a brief then dozes back off Vital Signs Vital Signs Date Time Temp Pulse Resp B/P (MAP) Pulse Ox O2 Delivery O2 Flow Rate FiO2 05/26/18 07:00 72 14 101/40 (60) 95 Nasal Cannula 2.0 05/26/18 04:00 97.8 97.8 I&O Intake and Output 05/26/18 07:01 Intake Total 1060 ml Output Total 1510 ml Balance -450 ml IV Total 1060 ml Output Urine Total 1215 ml Stool Total 150 ml Chest Tube Drainage Total 145 ml General: Cooperative, No acute distress Abdomen: Other Labs Laboratory Tests Test 05/24/18 10:30 05/24/18 14:20 05/24/18 14:26 05/24/18 17:30 O2 Saturation 92 % (92-99) 93 % (92-99) 96 % (92-99) Arterial Blood pH 7.24 (7.35-7.45) 7.30 (7.35-7.45) 7.34 (7.35-7.45) Arterial Blood pCO2 at Patient Temp 55 mmHg (35-46) 60 mmHg (35-46) 50 mmHg (35-46) Arterial Blood pO2 at Patient Temp 66 mmHg (75-108) 71 mmHg (75-108) 79 mmHg (75-108) Arterial Blood HCO3 23 mmol/L (21-28) 29 mmol/L (21-28) 26 mmol/L (21-28) Arterial Blood Base Excess -5 mmol/L (-3-3) 1 mmol/L (-3-3) 0 mmol/L (-3-3) FiO2 30 30 30 Potassium Level 5.1 mmol/L (3.5-5.1) Test 05/24/18 19:30 05/24/18 22:26 05/25/18 06:15 05/25/18 08:15 Lactic Acid Level 1.0 mmol/L (0.4-2.0) O2 Saturation 98 % (92-99) 96 % (92-99) Arterial Blood pH 7.41 (7.35-7.45) 7.36 (7.35-7.45) Arterial Blood pCO2 at Patient Temp 38 mmHg (35-46) 45 mmHg (35-46) Arterial Blood pO2 at Patient Temp 101 mmHg (75-108) 89 mmHg (75-108) Arterial Blood HCO3 24 mmol/L (21-28) 25 mmol/L (21-28) Arterial Blood Base Excess -1 mmol/L (-3-3) -1 mmol/L (-3-3) FiO2 30 30 White Blood Count 11.1 x10^3/uL (4.0-11.0) Red Blood Count 3.86 x10^6/uL (4.30-5.70) Hemoglobin 10.7 g/dL (13.0-17.5) Hematocrit 33.0 % (39.0-53.0) Mean Corpuscular Volume 86 fL (79-100) Mean Corpuscular Hemoglobin 28 pg (25-35) Mean Corpuscular Hemoglobin Concent 32 g/dL (31-37) Red Cell Distribution Width 15.7 % (11.5-14.5) Platelet Count 223 x10^3/uL (140-400) Sodium Level 134 mmol/L (136-145) Potassium Level 4.5 mmol/L (3.5-5.1) Chloride Level 101 mmol/L (98-107) Carbon Dioxide Level 27 mmol/L (21-32) Anion Gap 6 (6-14) Blood Urea Nitrogen 34 mg/dL (8-26) Creatinine 1.4 mg/dL (0.7-1.3) Estimated GFR (Cockcroft-Gault) 52.1 Glucose Level 107 mg/dL (70-99) Calcium Level 8.1 mg/dL (8.5-10.1) Phosphorus Level 3.1 mg/dL (2.6-4.7) Magnesium Level 2.2 mg/dL (1.8-2.4) Assessment/Plan abd distention appears softer today c diff pending KUB from yesterday reviewed LUIS GIRALDO MD 05/26/18 1247: SURGICAL PROGRESS NOTE Assessment/Plan Patient back from his colonoscopy. Resting comfortably in bed states that he feels less distended is having no pain. Reviewed KUB still distended colon did have bowel movement loose watery stool this morning which was sent for C. difficile. Continue medical management we'll follow closely. Agree Jones assessment and plan BHAVIN RETANA [employer]ACLE IAM CONSULTANT May 26, 2018 08:27 LUIS GIRALDO MD May 26, 2018 12:47
[2018-05-26] MEDS: DOCUSATE SODIUM 100 MG CAPSULE. PO SCH ×2 (09:00→21:31)
[2018-05-26] MEDS: ELECTROLYTE (ICU) PROTOCOL. MC SCH (09:00)
[2018-05-26] MEDS: GABAPENTIN 300 MG CAPSULE. PO SCH ×3 (09:00→21:30)
[2018-05-26] MEDS: METOPROLOL TART IMMED RELEASE 25 MG TABLET. PO SCH ×2 (09:00→21:35)
[2018-05-26] MEDS: SENNOSIDES/DOCUSATE 8.6/50MG TABLET. PO SCH ×2 (09:00→21:31)
[2018-05-26] MEDS: FAMOTIDINE 20 MG/2 ML VIAL IVP SCH ×2 (09:04→21:30)
[2018-05-26] MEDS: MULTIVIT INFUSN,ADULT 4,VIT K 10 ML, THIAMINE INJ 100 MG, FOLIC ACID INJ 1 MG in IV NOR... IV SCH (09:04)
--- NOTE | 2018-05-26 09:05 | RAD ---
Abdominal radiograph 05/26/2018. INDICATION: Ileus. COMPARISON: Abdominal radiograph May 25, 2018 TECHNIQUE: Single supine view the abdomen is provided. FINDINGS: Catheter tubing projects over the left flank. Supine technique limits evaluation for free intraperitoneal air. No pneumatosis coli. Dilated large bowel loops are again visualized, not significantly changed since the prior examination. There is moderate distention of the cecum. No suspicious calcifications are identified. Osseous structures appear stable. Right femoral hardware appears similar. IMPRESSION: No significant interval change in dilatation of large bowel loops, likely secondary to underlying ileus. Electronically signed by: Fatou Chavis MD (05/26/2018 9:00 AM) [facility]
[2018-05-26] MEDS ORDERED: PROPOFOL 20 ML IV ONE ×2 (09:10→10:57)
[2018-05-26] MEDS ORDERED: PROPOFOL 0 ML IV ONE (09:10)
[2018-05-26] MEDS ORDERED: NEOSTIGMINE 10 MG/10 ML VIAL. IV ONE (11:15)
--- NOTE | 2018-05-26 11:26 | PDOC4 ---
PROCEDURE Procedure Procedure: Colonoscopy. Indications: Acute colonic pseudo-obstruction. Medications: MAC. Findings - Scope was advanced to transverse colon with air totally off. There was evidence of large amount of stool in the colon that was suctioned out. Most of the colonic mucosa was not visualized with the stool coating the mucosa. However , the visualized colonic mucosa was unremarkable except one large polyp identified. Great attempt was done to suction out the air and liquid colonic contents.However, the abdomen remained distended with no significant improvement. Recommendations - Give 2mg neostigmine iv slowly ( ordered). - Keep patient NPO. - IVFs. - Encourage patient to ambulate. - Discussed with surgery. He may need surgical intervention pending his clinical course. - GI will be available for any Q's. AP GILL MD May 26, 2018 11:26
--- NOTE | 2018-05-26 11:38 | PDOC ---
PULMONARY PROGRESS NOTES Subjective UNDER GOING COLONOSCOPY Vitals Vital Signs Date Time Temp Pulse Resp B/P (MAP) Pulse Ox O2 Delivery O2 Flow Rate FiO2 05/26/18 11:25 76 18 104/58 98 Nasal Cannula 2 05/26/18 11:01 98.0 98.0 General: Lethargic Lungs: Crackles Cardiovascular: S1, S2 Abdomen: Soft, Other (DISTENDED) Extremities: Other (EDEMA) Skin: Warm Labs Laboratory Tests Test 05/24/18 14:20 05/24/18 14:26 05/24/18 17:30 05/24/18 19:30 Potassium Level 5.1 mmol/L (3.5-5.1) O2 Saturation 93 % (92-99) 96 % (92-99) Arterial Blood pH 7.30 (7.35-7.45) 7.34 (7.35-7.45) Arterial Blood pCO2 at Patient Temp 60 mmHg (35-46) 50 mmHg (35-46) Arterial Blood pO2 at Patient Temp 71 mmHg (75-108) 79 mmHg (75-108) Arterial Blood HCO3 29 mmol/L (21-28) 26 mmol/L (21-28) Arterial Blood Base Excess 1 mmol/L (-3-3) 0 mmol/L (-3-3) FiO2 30 30 Lactic Acid Level 1.0 mmol/L (0.4-2.0) Test 05/24/18 22:26 05/25/18 06:15 05/25/18 08:15 O2 Saturation 98 % (92-99) 96 % (92-99) Arterial Blood pH 7.41 (7.35-7.45) 7.36 (7.35-7.45) Arterial Blood pCO2 at Patient Temp 38 mmHg (35-46) 45 mmHg (35-46) Arterial Blood pO2 at Patient Temp 101 mmHg (75-108) 89 mmHg (75-108) Arterial Blood HCO3 24 mmol/L (21-28) 25 mmol/L (21-28) Arterial Blood Base Excess -1 mmol/L (-3-3) -1 mmol/L (-3-3) FiO2 30 30 White Blood Count 11.1 x10^3/uL (4.0-11.0) Red Blood Count 3.86 x10^6/uL (4.30-5.70) Hemoglobin 10.7 g/dL (13.0-17.5) Hematocrit 33.0 % (39.0-53.0) Mean Corpuscular Volume 86 fL (79-100) Mean Corpuscular Hemoglobin 28 pg (25-35) Mean Corpuscular Hemoglobin Concent 32 g/dL (31-37) Red Cell Distribution Width 15.7 % (11.5-14.5) Platelet Count 223 x10^3/uL (140-400) Sodium Level 134 mmol/L (136-145) Potassium Level 4.5 mmol/L (3.5-5.1) Chloride Level 101 mmol/L (98-107) Carbon Dioxide Level 27 mmol/L (21-32) Anion Gap 6 (6-14) Blood Urea Nitrogen 34 mg/dL (8-26) Creatinine 1.4 mg/dL (0.7-1.3) Estimated GFR (Cockcroft-Gault) 52.1 Glucose Level 107 mg/dL (70-99) Calcium Level 8.1 mg/dL (8.5-10.1) Phosphorus Level 3.1 mg/dL (2.6-4.7) Magnesium Level 2.2 mg/dL (1.8-2.4) Medications Active Scripts Medications Dose Route/Sig Max Daily Dose Days Date Category Dose Instructions Eliquis (Apixaban) 5 Mg Tablet 5 Mg PO BID 12/05/17 Reported Resume tomomorrow 04/05 Amlodipine Besylate 10 Mg Tablet 10 Mg PO DAILY 12/01/17 Reported Lisinopril-Hctz 20-12.5 Mg Tab (Lisinopril/Hydrochlorothiazide) 1 Each Tablet 1 Tab PO DAILY 12/01/17 Reported Allopurinol 100 Mg Tablet 100 Mg PO BID 12/01/17 Reported Impression . IMPRESSION: 1. Expected respiratory failure after surgical intervention for lung cancer. 2. Status post left posterior lateral thoracotomy, left upper lobectomy, mediastinal lymphadenopathy. 3. Tobacco dependence, in remission, quit 14 years ago. 4. 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 5. HYPERCAPNIA 6 METABOLIC ENCEPHALOPATHY 7. SUBCUTANEOUS EMPHYSEMA 8. PSEUDOOBSTRUCTION COLON Plan . D/W ANSTHESIA AVOID HYPER 02 VENTURI MASK D/W GI MAY NEED SURGERY IF SCOPE DOES NOT HELP CONTINUE BIPAP QHS AND PRN REPEAT ABG NOTED FINAL PATH PENDING CHEST TUBE PER DAIN CARDENAS MD May 26, 2018 11:38
--- NOTE | 2018-05-26 14:49 | RAD ---
Chest radiograph 05/26/2018 2:18 PM INDICATION: Status post left upper lobectomy. Chest tube removed. COMPARISON: Chest radiograph May 26, 2018 at 0705 hours TECHNIQUE: Portable upright frontal view of the chest is provided. FINDINGS: The cardiomediastinal silhouette is similar in appearance. Right upper extremity PICC is in similar position. Left-sided thoracostomy tube has been removed. No pneumothorax. There is persistent left lower lobe airspace consolidation which may represent atelectasis versus infiltrate. Similar left suprahilar opacity. Small left pleural effusion. Lung is clear. IMPRESSION: Interval removal of left-sided thoracostomy tube. No pneumothorax. Electronically signed by: Fatou Chavis MD (05/26/2018 2:44 PM) [facility]
--- NOTE | 2018-05-26 15:34 | PDOC ---
Progress Note Subjective Subjective Had decompressive colonoscopy this morning. Abdo distention better. Alert and oriented. No air leak, minimal output. Normotensive and SR. CXR improved. Gram + cocci on blood cultures-a/w identification. Afebrile. ROS ROS No nausea No vomiting No pain No rash Vital Sign Vital Signs Vital Signs Date Time Temp Pulse Resp B/P (MAP) Pulse Ox O2 Delivery O2 Flow Rate FiO2 05/26/18 13:00 80 24 130/53 (78) 99 Room Air 05/26/18 12:00 99.1 99.1 05/26/18 11:25 2 Physical Exam PHYSICAL EXAM GENERAL: NAD, Alert HEENT: PERRL, OC/OP NECK: Supple, no JVD, no LN LUNGS: Clear HEART: S1S2, no gallop, no murmur ABD: Soft, NT, no organomegaly, no rebound EXT: No edema, no cyanosis RN ORTHOPEDIC: Alert, oriented x 3, no focal neurologic deficit SKIN: No rash IV: ok Labs Lab Laboratory Tests Test 05/25/18 17:40 Clostridium difficile Toxin B Gene Negative (Negative) Objective Assessment POD#3, s/p left upper lobectomy and mediastinal lymphadenectomy Had decompressive colonoscopy this morning. Abdo distention better. Alert and oriented. No air leak, minimal output. Normotensive and SR. CXR improved. Gram + cocci on blood cultures-a/w identification. Afebrile. Plan Plan of Care D/c chest tube NPO Repeat blood cultures Will adjust abx after identification-will get ID consult Keep fernandez until he has a BM, otherwise high risk of retention Incentive spirometry and ambulation Heparin s/q for DVT prophylaxis Keep in ICU until colonic ileus resolves Check K and replace if <4 for ileus Daily KUBs with CXR NAMRATA WYATT MD May 26, 2018 15:34
[2018-05-26 16:34] LABS: BASO % 0 % (0-3); EOS % 1 % (0-3); HEMATOCRIT 27.8 % (39.0-53.0); HEMOGLOBIN 9.1 g/dL (13.0-17.5); LYMPH # 0.4 x10^3/uL (1.0-4.8); LYMPH % 5 % (24-48); MEAN CORPUSCULAR HEMOGLOBIN 28 pg (25-35); MEAN CORPUSCULAR HGB CONC 33 g/dL (31-37); MEAN CORPUSCULAR VOLUME 84 fL (79-100); MONO # 0.5 x10^3/uL (0.0-1.1); MONO % 5 % (0-9); NEUT # 7.8 x10^3uL (1.8-7.7); NEUT % 89 % (31-73); PLATELET COUNT 230 x10^3/uL (140-400); RED CELL DISTRIBUTION WIDTH 15.9 % (11.5-14.5); WHITE BLOOD COUNT 8.8 x10^3/uL (4.0-11.0)
[2018-05-26 16:35] LABS: CALCIUM 7.1 mg/dL (8.5-10.1); CREATININE 0.9 mg/dL (0.7-1.3); GFR 86.7; POTASSIUM 3.3 mmol/L (3.5-5.1)
[2018-05-26] MEDS ORDERED: POTASSIUM CHL 20MEQ PREMIX 50 ML IV ONE (17:00)
[2018-05-26 17:30] LABS: % BANDS 8 % (0-9); % EOS 1 % (0-5); % LYMPHS 8 % (24-48); % MONOS 3 % (0-10); % SEGS 80 % (35-66); PLT ESTIMATE ADEQUATE (ADEQUATE); TOXIC GRANULATION SLIGHT
[2018-05-26] MEDS: IV NORMAL SALINE 1000ML BAG 1,000 ML IV SCH (21:55)
[2018-05-27] VITALS (15 sets, daily range): BP systolic 95–150; BP diastolic 45–71
[2018-05-27] MEDS: PIPERACILLIN/TAZOBACTAM 4.5 GM in IV NORMAL SALINE 100ML 100 ML IV SCH ×4 (00:03→18:08)
[2018-05-27] MEDS: HEPARIN for SUB-Q USE 5,000 UNIT/ML VIAL. SQ SCH ×3 (06:07→21:53)
--- NOTE | 2018-05-27 08:12 | RAD ---
Examination: PORTABLE CHEST 1V History: s/p left upper lobectomy Comparison/Correlation: 05/26/2018 portable chest x-ray exam Findings: Portable upright frontal view of the chest was obtained. Right-sided PICC terminates overlying the superior vena cava. Left suprahilar surgical clips noted. Mediastinal shift to the left noted. Right lung field is clear. Relatively less left lung volume noted corresponding with surgical history. Somewhat less left lung volume compared to the prior exam also noted. This may relate to underlying retrocardiac basilar atelectasis. Small pleural effusion may also be present. Impression: Left basilar retrocardiac atelectasis appears to be greater in the interval. Small left pleural effusion. Electronically signed by: Abdoul Lorenz MD (05/27/2018 8:07 AM) [facility]
[2018-05-27] MEDS: ELECTROLYTE (ICU) PROTOCOL. MC SCH (09:00)
[2018-05-27] MEDS: MULTIVIT INFUSN,ADULT 4,VIT K 10 ML, THIAMINE INJ 100 MG, FOLIC ACID INJ 1 MG in IV NOR... IV SCH (09:22)
[2018-05-27] MEDS: DOCUSATE SODIUM 100 MG CAPSULE. PO SCH ×2 (09:23→21:52)
[2018-05-27] MEDS: GABAPENTIN 300 MG CAPSULE. PO SCH ×3 (09:23→21:51)
[2018-05-27] MEDS: METOPROLOL TART IMMED RELEASE 25 MG TABLET. PO SCH ×2 (09:29→21:52)
[2018-05-27] MEDS: FAMOTIDINE 20 MG/2 ML VIAL IVP SCH ×2 (09:34→21:52)
[2018-05-27] MEDS: SENNOSIDES/DOCUSATE 8.6/50MG TABLET. PO SCH ×2 (09:35→21:52)
--- NOTE | 2018-05-27 09:36 | PDOC ---
Subjective: Subjective: Was up walking around the unit, passed gas, has had a couple liquid stools. Thinks abdomen is better - "still can feel it." Takes some ice/sips of water, was also recommended to chew gum and suck on hard candy. Objective: Objective: RN received in report that abd was less tight. Vital Signs: Vital Signs Date Time Temp Pulse Resp B/P (MAP) Pulse Ox O2 Delivery O2 Flow Rate FiO2 05/27/18 08:45 94 Room Air 05/27/18 08:00 68 15 103/47 (65) 2.0 05/27/18 03:00 98.7 98.7 Labs: Laboratory Tests Test 05/26/18 16:00 White Blood Count 8.8 x10^3/uL Red Blood Count 3.30 x10^6/uL Hemoglobin 9.1 g/dL Hematocrit 27.8 % Mean Corpuscular Volume 84 fL Mean Corpuscular Hemoglobin 28 pg Mean Corpuscular Hemoglobin Concent 33 g/dL Red Cell Distribution Width 15.9 % Platelet Count 230 x10^3/uL Neutrophils (%) (Auto) 89 % Lymphocytes (%) (Auto) 5 % Monocytes (%) (Auto) 5 % Eosinophils (%) (Auto) 1 % Basophils (%) (Auto) 0 % Neutrophils # (Auto) 7.8 x10^3uL Lymphocytes # (Auto) 0.4 x10^3/uL Monocytes # (Auto) 0.5 x10^3/uL Eosinophils # (Auto) 0.0 x10^3/uL Basophils # (Auto) 0.0 x10^3/uL Segmented Neutrophils % 80 % Band Neutrophils % 8 % Lymphocytes % 8 % Monocytes % 3 % Eosinophils % 1 % Toxic Granulation Slight Platelet Estimate Adequate Sodium Level 140 mmol/L Potassium Level 3.3 mmol/L Chloride Level 106 mmol/L Carbon Dioxide Level 23 mmol/L Anion Gap 11 Blood Urea Nitrogen 27 mg/dL Creatinine 0.9 mg/dL Estimated GFR (Cockcroft-Gault) 86.7 Glucose Level 101 mg/dL Calcium Level 7.1 mg/dL Imaging: Colonoscopy 05/26/18 - Scope was advanced to transverse colon with air totally off. There was evidence of large amount of stool in the colon that was suctioned out. Most of the colonic mucosa was not visualized with the stool coating the mucosa. However , the visualized colonic mucosa was unremarkable except one large polyp identified. Great attempt was done to suction out the air and liquid colonic contents.However, the abdomen remained distended with no significant improvement. CXR 05/27/18 Impression: Left basilar retrocardiac atelectasis appears to be greater in the interval. Small left pleural effusion. PE: GEN: NAD - on toilet w/ RN and family present LUNGS: room air HEART: RRR ABD: distended ?w/ some tightness, non-tender, quiet NEURO/PSYCH: A & O �3 A/P: Lung cancer s/p left upper lobectomy and mediastinal lymphadenectomy Gram + cocci bacteremia ENRIQUE, hyperkalemia - resolved ?Chinyere's -s/p neostigmine and colonoscopy for decompression Anemia -- ?repeat CT - Dr. Zheng will see later WAN ELIZALDE May 27, 2018 09:36
--- NOTE | 2018-05-27 09:39 | PDOC ---
PULMONARY PROGRESS NOTES Subjective NOT MORE SOA HAVING SOME FLATUS Vitals Vital Signs Date Time Temp Pulse Resp B/P (MAP) Pulse Ox O2 Delivery O2 Flow Rate FiO2 05/27/18 09:29 70 144/62 05/27/18 08:45 94 Room Air 05/27/18 08:00 15 2.0 05/27/18 03:00 98.7 98.7 General: Lethargic Lungs: Crackles Cardiovascular: S1, S2 Abdomen: Soft, Other (DISTENDED) Extremities: Other (EDEMA) Skin: Warm Labs Laboratory Tests Test 05/25/18 17:40 05/26/18 16:00 Clostridium difficile Toxin B Gene Negative (Negative) White Blood Count 8.8 x10^3/uL (4.0-11.0) Red Blood Count 3.30 x10^6/uL (4.30-5.70) Hemoglobin 9.1 g/dL (13.0-17.5) Hematocrit 27.8 % (39.0-53.0) Mean Corpuscular Volume 84 fL (79-100) Mean Corpuscular Hemoglobin 28 pg (25-35) Mean Corpuscular Hemoglobin Concent 33 g/dL (31-37) Red Cell Distribution Width 15.9 % (11.5-14.5) Platelet Count 230 x10^3/uL (140-400) Neutrophils (%) (Auto) 89 % (31-73) Lymphocytes (%) (Auto) 5 % (24-48) Monocytes (%) (Auto) 5 % (0-9) Eosinophils (%) (Auto) 1 % (0-3) Basophils (%) (Auto) 0 % (0-3) Neutrophils # (Auto) 7.8 x10^3uL (1.8-7.7) Lymphocytes # (Auto) 0.4 x10^3/uL (1.0-4.8) Monocytes # (Auto) 0.5 x10^3/uL (0.0-1.1) Eosinophils # (Auto) 0.0 x10^3/uL (0.0-0.7) Basophils # (Auto) 0.0 x10^3/uL (0.0-0.2) Segmented Neutrophils % 80 % (35-66) Band Neutrophils % 8 % (0-9) Lymphocytes % 8 % (24-48) Monocytes % 3 % (0-10) Eosinophils % 1 % (0-5) Toxic Granulation Slight Platelet Estimate Adequate (ADEQUATE) Sodium Level 140 mmol/L (136-145) Potassium Level 3.3 mmol/L (3.5-5.1) Chloride Level 106 mmol/L (98-107) Carbon Dioxide Level 23 mmol/L (21-32) Anion Gap 11 (6-14) Blood Urea Nitrogen 27 mg/dL (8-26) Creatinine 0.9 mg/dL (0.7-1.3) Estimated GFR (Cockcroft-Gault) 86.7 Glucose Level 101 mg/dL (70-99) Calcium Level 7.1 mg/dL (8.5-10.1) Laboratory Tests Test 05/26/18 16:00 White Blood Count 8.8 x10^3/uL (4.0-11.0) Red Blood Count 3.30 x10^6/uL (4.30-5.70) Hemoglobin 9.1 g/dL (13.0-17.5) Hematocrit 27.8 % (39.0-53.0) Mean Corpuscular Volume 84 fL (79-100) Mean Corpuscular Hemoglobin 28 pg (25-35) Mean Corpuscular Hemoglobin Concent 33 g/dL (31-37) Red Cell Distribution Width 15.9 % (11.5-14.5) Platelet Count 230 x10^3/uL (140-400) Neutrophils (%) (Auto) 89 % (31-73) Lymphocytes (%) (Auto) 5 % (24-48) Monocytes (%) (Auto) 5 % (0-9) Eosinophils (%) (Auto) 1 % (0-3) Basophils (%) (Auto) 0 % (0-3) Neutrophils # (Auto) 7.8 x10^3uL (1.8-7.7) Lymphocytes # (Auto) 0.4 x10^3/uL (1.0-4.8) Monocytes # (Auto) 0.5 x10^3/uL (0.0-1.1) Eosinophils # (Auto) 0.0 x10^3/uL (0.0-0.7) Basophils # (Auto) 0.0 x10^3/uL (0.0-0.2) Segmented Neutrophils % 80 % (35-66) Band Neutrophils % 8 % (0-9) Lymphocytes % 8 % (24-48) Monocytes % 3 % (0-10) Eosinophils % 1 % (0-5) Toxic Granulation Slight Platelet Estimate Adequate (ADEQUATE) Sodium Level 140 mmol/L (136-145) Potassium Level 3.3 mmol/L (3.5-5.1) Chloride Level 106 mmol/L (98-107) Carbon Dioxide Level 23 mmol/L (21-32) Anion Gap 11 (6-14) Blood Urea Nitrogen 27 mg/dL (8-26) Creatinine 0.9 mg/dL (0.7-1.3) Estimated GFR (Cockcroft-Gault) 86.7 Glucose Level 101 mg/dL (70-99) Calcium Level 7.1 mg/dL (8.5-10.1) Medications Active Scripts Medications Dose Route/Sig Max Daily Dose Days Date Category Dose Instructions Eliquis (Apixaban) 5 Mg Tablet 5 Mg PO BID 12/05/17 Reported Resume tomomorrow 04/05 Amlodipine Besylate 10 Mg Tablet 10 Mg PO DAILY 12/01/17 Reported Lisinopril-Hctz 20-12.5 Mg Tab (Lisinopril/Hydrochlorothiazide) 1 Each Tablet 1 Tab PO DAILY 12/01/17 Reported Allopurinol 100 Mg Tablet 100 Mg PO BID 12/01/17 Reported Impression . IMPRESSION: 1. Expected respiratory failure after surgical intervention for lung cancer. 2. Status post left posterior lateral thoracotomy, left upper lobectomy, mediastinal lymphadenopathy. 3. Tobacco dependence, in remission, quit 14 years ago. 4. 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 5. HYPERCAPNIA 6 METABOLIC ENCEPHALOPATHY 7. SUBCUTANEOUS EMPHYSEMA 8. PSEUDOOBSTRUCTION COLON S/P COLONOSCOPY FOR DECOMPRESSION Diagnosis: A. Lung lobe, left upper lobectomy: - ADENOSQUAMOUS CARCINOMA, INVASIVE, MODERATELY TO POORLY DIFFERENTIATED, FORMING A CAVITARY LUNG MASS MEASURING 6.9 CM IN GREATEST DIMENSION. SEE SYNOPTIC REPORT. - METASTATIC ADENOCARCINOMA INVOLVING ONE OF FOUR PERIBRONCHIAL LYMPH NODES (/). - Focal tumor invasion of visceral pleura. - Focal tumor vascular invasion within neoplasm. - Bronchial margin of resection negative for tumor. - Pulmonary vascular margins of resection negative for tumor. - Obstructive lipoid pneumonia of lung, focal. . B. Segments of lymph node and fibroadipose tissue, level 9 mediastinal lymph node: - Negative for tumor. . C. Segments of lymph node and fibroadipose tissue, level 10 mediastinal lymph node: - METASTATIC ADENOCARCINOMA. . D. Segment of lymph node and fibroadipose tissue, level 6 mediastinal lymph node: - METASTATIC ADENOCARCINOMA. . E. Segments of lymph node and fibroadipose tissue, level 5 mediastinal lymph node: - Negative for tumor. . F. Segments of lymph node and fibroadipose tissue, level 11 mediastinal lymph node: - Negative for tumor. Plan . WILL NEED ADJUVANT CHEMO IN FUTURE ADVANCE DIET PER SURGERY PRN BIAPAP CHEST TUBED D/C 05/26 FINAL PATH PENDING ANTICOAGULATION DAIN CÁRDENAS MD May 27, 2018 09:38
[2018-05-27] MEDS: POTASSIUM CHL 20MEQ PREMIX 50 ML IV SCH ×3 (11:12→13:56)
--- NOTE | 2018-05-27 11:17 | NUR ---
SS following up with discharge planning. Pt is currently on room air. PT recommending home when ready for discharge. SS will continue to follow for pending discharge needs.
--- NOTE | 2018-05-27 13:16 | PDOC ---
BHAVIN RETANA MARBLE CARVER 05/27/18 1316: SURGICAL PROGRESS NOTE Subjective taking some water, a little abdominal tightness with liquids no emesis some stool Vital Signs Vital Signs Date Time Temp Pulse Resp B/P (MAP) Pulse Ox O2 Delivery O2 Flow Rate FiO2 05/27/18 11:00 76 20 144/71 (95) 93 Room Air 05/27/18 08:00 97.7 2.0 97.7 I&O Intake and Output 05/27/18 07:01 Intake Total 1472 ml Output Total 1151 ml Balance 321 ml Other 1472 ml Output Urine Total 1150 ml Stool Total 1 ml General: Alert, Oriented X3, Cooperative, No acute distress Abdomen: Soft, Other (distended, soft) Labs Laboratory Tests Test 05/25/18 17:40 05/26/18 16:00 Clostridium difficile Toxin B Gene Negative (Negative) White Blood Count 8.8 x10^3/uL (4.0-11.0) Red Blood Count 3.30 x10^6/uL (4.30-5.70) Hemoglobin 9.1 g/dL (13.0-17.5) Hematocrit 27.8 % (39.0-53.0) Mean Corpuscular Volume 84 fL (79-100) Mean Corpuscular Hemoglobin 28 pg (25-35) Mean Corpuscular Hemoglobin Concent 33 g/dL (31-37) Red Cell Distribution Width 15.9 % (11.5-14.5) Platelet Count 230 x10^3/uL (140-400) Neutrophils (%) (Auto) 89 % (31-73) Lymphocytes (%) (Auto) 5 % (24-48) Monocytes (%) (Auto) 5 % (0-9) Eosinophils (%) (Auto) 1 % (0-3) Basophils (%) (Auto) 0 % (0-3) Neutrophils # (Auto) 7.8 x10^3uL (1.8-7.7) Lymphocytes # (Auto) 0.4 x10^3/uL (1.0-4.8) Monocytes # (Auto) 0.5 x10^3/uL (0.0-1.1) Eosinophils # (Auto) 0.0 x10^3/uL (0.0-0.7) Basophils # (Auto) 0.0 x10^3/uL (0.0-0.2) Segmented Neutrophils % 80 % (35-66) Band Neutrophils % 8 % (0-9) Lymphocytes % 8 % (24-48) Monocytes % 3 % (0-10) Eosinophils % 1 % (0-5) Toxic Granulation Slight Platelet Estimate Adequate (ADEQUATE) Sodium Level 140 mmol/L (136-145) Potassium Level 3.3 mmol/L (3.5-5.1) Chloride Level 106 mmol/L (98-107) Carbon Dioxide Level 23 mmol/L (21-32) Anion Gap 11 (6-14) Blood Urea Nitrogen 27 mg/dL (8-26) Creatinine 0.9 mg/dL (0.7-1.3) Estimated GFR (Cockcroft-Gault) 86.7 Glucose Level 101 mg/dL (70-99) Calcium Level 7.1 mg/dL (8.5-10.1) Laboratory Tests Test 05/26/18 16:00 White Blood Count 8.8 x10^3/uL (4.0-11.0) Red Blood Count 3.30 x10^6/uL (4.30-5.70) Hemoglobin 9.1 g/dL (13.0-17.5) Hematocrit 27.8 % (39.0-53.0) Mean Corpuscular Volume 84 fL (79-100) Mean Corpuscular Hemoglobin 28 pg (25-35) Mean Corpuscular Hemoglobin Concent 33 g/dL (31-37) Red Cell Distribution Width 15.9 % (11.5-14.5) Platelet Count 230 x10^3/uL (140-400) Neutrophils (%) (Auto) 89 % (31-73) Lymphocytes (%) (Auto) 5 % (24-48) Monocytes (%) (Auto) 5 % (0-9) Eosinophils (%) (Auto) 1 % (0-3) Basophils (%) (Auto) 0 % (0-3) Neutrophils # (Auto) 7.8 x10^3uL (1.8-7.7) Lymphocytes # (Auto) 0.4 x10^3/uL (1.0-4.8) Monocytes # (Auto) 0.5 x10^3/uL (0.0-1.1) Eosinophils # (Auto) 0.0 x10^3/uL (0.0-0.7) Basophils # (Auto) 0.0 x10^3/uL (0.0-0.2) Segmented Neutrophils % 80 % (35-66) Band Neutrophils % 8 % (0-9) Lymphocytes % 8 % (24-48) Monocytes % 3 % (0-10) Eosinophils % 1 % (0-5) Toxic Granulation Slight Platelet Estimate Adequate (ADEQUATE) Sodium Level 140 mmol/L (136-145) Potassium Level 3.3 mmol/L (3.5-5.1) Chloride Level 106 mmol/L (98-107) Carbon Dioxide Level 23 mmol/L (21-32) Anion Gap 11 (6-14) Blood Urea Nitrogen 27 mg/dL (8-26) Creatinine 0.9 mg/dL (0.7-1.3) Estimated GFR (Cockcroft-Gault) 86.7 Glucose Level 101 mg/dL (70-99) Calcium Level 7.1 mg/dL (8.5-10.1) Problem List as per GI LUIS GIRALDO MD 05/27/18 1412: SURGICAL PROGRESS NOTE Assessment/Plan Showing some improvement. No surgical plans. Agree with John's assessment and plan BHAVIN RETANA APRN May 27, 2018 13:16 LUIS GIRALDO MD May 27, 2018 14:12
[2018-05-27] MEDS ORDERED: BISACODYL 10 MG SUPP.RECT. PR PRN (14:45)
--- NOTE | 2018-05-27 15:21 | PDOC ---
Progress Note Subjective Subjective Abdominal distention better. Small BM with suppository. Normotensive and SR. CXR more loss of left lung volume. Gram + cocci on blood cultures-a/w identification. Afebrile. Repeat cultures pending. 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 ROS ROS No nausea No vomiting No pain No rash Vital Sign Vital Signs Vital Signs Date Time Temp Pulse Resp B/P (MAP) Pulse Ox O2 Delivery O2 Flow Rate FiO2 05/27/18 11:00 76 20 144/71 (95) 93 Room Air 05/27/18 08:00 97.7 2.0 97.7 Physical Exam PHYSICAL EXAM GENERAL: NAD, Alert HEENT: PERRL, OC/OP NECK: Supple, no JVD, no LN LUNGS: Clear HEART: S1S2, no gallop, no murmur ABD: Soft, NT, no organomegaly, no rebound EXT: No edema, no cyanosis MICA SPLITTER: Alert, oriented x 3, no focal neurologic deficit SKIN: No rash IV: ok Labs Lab Laboratory Tests Test 05/26/18 16:00 White Blood Count 8.8 x10^3/uL (4.0-11.0) Red Blood Count 3.30 x10^6/uL (4.30-5.70) Hemoglobin 9.1 g/dL (13.0-17.5) Hematocrit 27.8 % (39.0-53.0) Mean Corpuscular Volume 84 fL (79-100) Mean Corpuscular Hemoglobin 28 pg (25-35) Mean Corpuscular Hemoglobin Concent 33 g/dL (31-37) Red Cell Distribution Width 15.9 % (11.5-14.5) Platelet Count 230 x10^3/uL (140-400) Neutrophils (%) (Auto) 89 % (31-73) Lymphocytes (%) (Auto) 5 % (24-48) Monocytes (%) (Auto) 5 % (0-9) Eosinophils (%) (Auto) 1 % (0-3) Basophils (%) (Auto) 0 % (0-3) Neutrophils # (Auto) 7.8 x10^3uL (1.8-7.7) Lymphocytes # (Auto) 0.4 x10^3/uL (1.0-4.8) Monocytes # (Auto) 0.5 x10^3/uL (0.0-1.1) Eosinophils # (Auto) 0.0 x10^3/uL (0.0-0.7) Basophils # (Auto) 0.0 x10^3/uL (0.0-0.2) Segmented Neutrophils % 80 % (35-66) Band Neutrophils % 8 % (0-9) Lymphocytes % 8 % (24-48) Monocytes % 3 % (0-10) Eosinophils % 1 % (0-5) Toxic Granulation Slight Platelet Estimate Adequate (ADEQUATE) Sodium Level 140 mmol/L (136-145) Potassium Level 3.3 mmol/L (3.5-5.1) Chloride Level 106 mmol/L (98-107) Carbon Dioxide Level 23 mmol/L (21-32) Anion Gap 11 (6-14) Blood Urea Nitrogen 27 mg/dL (8-26) Creatinine 0.9 mg/dL (0.7-1.3) Estimated GFR (Cockcroft-Gault) 86.7 Glucose Level 101 mg/dL (70-99) Calcium Level 7.1 mg/dL (8.5-10.1) Objective Assessment POD#4, s/p left upper lobectomy and mediastinal lymphadenectomy Abdominal distention better. Small BM with suppository. Normotensive and SR. CXR more loss of left lung volume. Gram + cocci on blood cultures-a/w identification. Afebrile. Repeat cultures pending. 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 Will need adjuvant chemotherapy. Plan Plan of Care More aggressive pulmonary toilet for lung volume loss on CXR D/c rebecca Will adjust abx after identification ID consult Ambulation Heparin s/q for DVT prophylaxis Check K and replace if <4 for ileus KUB tomorrow morning Transfer to stepdown D/c home once colonic ileus resolves. NAMRATA WYATT MD May 27, 2018 15:21
[2018-05-27 15:40] LABS: ALBUMIN 1.6 g/dL (3.4-5.0); ALBUMIN/GLOBULIN RATIO 0.5 (1.0-1.7); CALCIUM 7.9 mg/dL (8.5-10.1); CREATININE 0.9 mg/dL (0.7-1.3); GFR 86.7; POTASSIUM 3.8 mmol/L (3.5-5.1); TOTAL BILIRUBIN 0.7 mg/dL (0.2-1.0)
[2018-05-27] MEDS: IV NORMAL SALINE 1000ML BAG 1,000 ML IV SCH ×2 (17:30→23:16)
[2018-05-28] VITALS (7 sets, daily range): BP systolic 111–137; BP diastolic 54–61
[2018-05-28] MEDS: PIPERACILLIN/TAZOBACTAM 4.5 GM in IV NORMAL SALINE 100ML 100 ML IV SCH ×3 (00:06→12:56)
[2018-05-28] MEDS: HEPARIN for SUB-Q USE 5,000 UNIT/ML VIAL. SQ SCH (05:46)
--- NOTE | 2018-05-28 08:06 | PDOC ---
Infectious Disease Note Vital Sign Vital Signs Vital Signs Date Time Temp Pulse Resp B/P (MAP) Pulse Ox O2 Delivery O2 Flow Rate FiO2 05/28/18 04:00 Room Air 05/28/18 04:00 98.1 75 18 134/56 (82) 93 98.1 05/27/18 08:00 2.0 Labs Lab Laboratory Tests Test 05/27/18 15:00 Sodium Level 136 mmol/L (136-145) Potassium Level 3.8 mmol/L (3.5-5.1) Chloride Level 104 mmol/L (98-107) Carbon Dioxide Level 25 mmol/L (21-32) Anion Gap 7 (6-14) Blood Urea Nitrogen 21 mg/dL (8-26) Creatinine 0.9 mg/dL (0.7-1.3) Estimated GFR (Cockcroft-Gault) 86.7 BUN/Creatinine Ratio 23 (6-20) Glucose Level 105 mg/dL (70-99) Calcium Level 7.9 mg/dL (8.5-10.1) Total Bilirubin 0.7 mg/dL (0.2-1.0) Aspartate Amino Transf (AST/SGOT) 19 U/L (15-37) Alanine Aminotransferase (ALT/SGPT) 18 U/L (16-63) Alkaline Phosphatase 164 U/L (46-116) Total Protein 5.0 g/dL (6.4-8.2) Albumin 1.6 g/dL (3.4-5.0) Albumin/Globulin Ratio 0.5 (1.0-1.7) Objective Assessment BC + with G + cocci , ID pending Lung ca s/p lobectomy Ileus Colon polyp Fever Leukocytosis Plan Plan of Care d/c [facility] supportive care check ID and adjust d/w pt and TOMAS LOWERY MD May 28, 2018 08:06
--- NOTE | 2018-05-28 08:36 | PDOC ---
SURGICAL PROGRESS NOTE Subjective up in chair some stool, loose some pain right side Vital Signs Vital Signs Date Time Temp Pulse Resp B/P (MAP) Pulse Ox O2 Delivery O2 Flow Rate FiO2 05/28/18 04:00 Room Air 05/28/18 04:00 98.1 75 18 134/56 (82) 93 98.1 05/27/18 08:00 2.0 I&O Intake and Output 05/28/18 07:01 Intake Total 2303 ml Output Total 477 ml Balance 1826 ml Intake Oral 200 ml IV Total 2103 ml Output Urine Total 475 ml Stool Total 2 ml # Voids 1 General: Alert, Oriented X3, Cooperative, No acute distress Abdomen: Soft, Other (distended, less) Labs Laboratory Tests Test 05/26/18 16:00 05/27/18 15:00 White Blood Count 8.8 x10^3/uL (4.0-11.0) Red Blood Count 3.30 x10^6/uL (4.30-5.70) Hemoglobin 9.1 g/dL (13.0-17.5) Hematocrit 27.8 % (39.0-53.0) Mean Corpuscular Volume 84 fL (79-100) Mean Corpuscular Hemoglobin 28 pg (25-35) Mean Corpuscular Hemoglobin Concent 33 g/dL (31-37) Red Cell Distribution Width 15.9 % (11.5-14.5) Platelet Count 230 x10^3/uL (140-400) Neutrophils (%) (Auto) 89 % (31-73) Lymphocytes (%) (Auto) 5 % (24-48) Monocytes (%) (Auto) 5 % (0-9) Eosinophils (%) (Auto) 1 % (0-3) Basophils (%) (Auto) 0 % (0-3) Neutrophils # (Auto) 7.8 x10^3uL (1.8-7.7) Lymphocytes # (Auto) 0.4 x10^3/uL (1.0-4.8) Monocytes # (Auto) 0.5 x10^3/uL (0.0-1.1) Eosinophils # (Auto) 0.0 x10^3/uL (0.0-0.7) Basophils # (Auto) 0.0 x10^3/uL (0.0-0.2) Segmented Neutrophils % 80 % (35-66) Band Neutrophils % 8 % (0-9) Lymphocytes % 8 % (24-48) Monocytes % 3 % (0-10) Eosinophils % 1 % (0-5) Toxic Granulation Slight Platelet Estimate Adequate (ADEQUATE) Sodium Level 140 mmol/L (136-145) 136 mmol/L (136-145) Potassium Level 3.3 mmol/L (3.5-5.1) 3.8 mmol/L (3.5-5.1) Chloride Level 106 mmol/L (98-107) 104 mmol/L (98-107) Carbon Dioxide Level 23 mmol/L (21-32) 25 mmol/L (21-32) Anion Gap 11 (6-14) 7 (6-14) Blood Urea Nitrogen 27 mg/dL (8-26) 21 mg/dL (8-26) Creatinine 0.9 mg/dL (0.7-1.3) 0.9 mg/dL (0.7-1.3) Estimated GFR (Cockcroft-Gault) 86.7 86.7 Glucose Level 101 mg/dL (70-99) 105 mg/dL (70-99) Calcium Level 7.1 mg/dL (8.5-10.1) 7.9 mg/dL (8.5-10.1) BUN/Creatinine Ratio 23 (6-20) Total Bilirubin 0.7 mg/dL (0.2-1.0) Aspartate Amino Transf (AST/SGOT) 19 U/L (15-37) Alanine Aminotransferase (ALT/SGPT) 18 U/L (16-63) Alkaline Phosphatase 164 U/L (46-116) Total Protein 5.0 g/dL (6.4-8.2) Albumin 1.6 g/dL (3.4-5.0) Albumin/Globulin Ratio 0.5 (1.0-1.7) Laboratory Tests Test 05/27/18 15:00 Sodium Level 136 mmol/L (136-145) Potassium Level 3.8 mmol/L (3.5-5.1) Chloride Level 104 mmol/L (98-107) Carbon Dioxide Level 25 mmol/L (21-32) Anion Gap 7 (6-14) Blood Urea Nitrogen 21 mg/dL (8-26) Creatinine 0.9 mg/dL (0.7-1.3) Estimated GFR (Cockcroft-Gault) 86.7 BUN/Creatinine Ratio 23 (6-20) Glucose Level 105 mg/dL (70-99) Calcium Level 7.9 mg/dL (8.5-10.1) Total Bilirubin 0.7 mg/dL (0.2-1.0) Aspartate Amino Transf (AST/SGOT) 19 U/L (15-37) Alanine Aminotransferase (ALT/SGPT) 18 U/L (16-63) Alkaline Phosphatase 164 U/L (46-116) Total Protein 5.0 g/dL (6.4-8.2) Albumin 1.6 g/dL (3.4-5.0) Albumin/Globulin Ratio 0.5 (1.0-1.7) Problem List supportive measures gi following did d/w pt and can FU as outpt with Dr Rose to discuss polyp BHAVIN RETANA APRN May 28, 2018 08:36
--- NOTE | 2018-05-28 08:55 | PDOC ---
PULMONARY PROGRESS NOTES Subjective feels better having BM Vitals Vital Signs Date Time Temp Pulse Resp B/P (MAP) Pulse Ox O2 Delivery O2 Flow Rate FiO2 05/28/18 04:00 Room Air 05/28/18 04:00 98.1 75 18 134/56 (82) 93 98.1 05/27/18 08:00 2.0 General: Alert Lungs: Other (decrease left) Cardiovascular: S1, S2 Abdomen: Soft, Other (DISTENDED) Neuro Exam: Alert Extremities: Other (EDEMA) Skin: Warm Labs Laboratory Tests Test 05/26/18 16:00 05/27/18 15:00 White Blood Count 8.8 x10^3/uL (4.0-11.0) Red Blood Count 3.30 x10^6/uL (4.30-5.70) Hemoglobin 9.1 g/dL (13.0-17.5) Hematocrit 27.8 % (39.0-53.0) Mean Corpuscular Volume 84 fL (79-100) Mean Corpuscular Hemoglobin 28 pg (25-35) Mean Corpuscular Hemoglobin Concent 33 g/dL (31-37) Red Cell Distribution Width 15.9 % (11.5-14.5) Platelet Count 230 x10^3/uL (140-400) Neutrophils (%) (Auto) 89 % (31-73) Lymphocytes (%) (Auto) 5 % (24-48) Monocytes (%) (Auto) 5 % (0-9) Eosinophils (%) (Auto) 1 % (0-3) Basophils (%) (Auto) 0 % (0-3) Neutrophils # (Auto) 7.8 x10^3uL (1.8-7.7) Lymphocytes # (Auto) 0.4 x10^3/uL (1.0-4.8) Monocytes # (Auto) 0.5 x10^3/uL (0.0-1.1) Eosinophils # (Auto) 0.0 x10^3/uL (0.0-0.7) Basophils # (Auto) 0.0 x10^3/uL (0.0-0.2) Segmented Neutrophils % 80 % (35-66) Band Neutrophils % 8 % (0-9) Lymphocytes % 8 % (24-48) Monocytes % 3 % (0-10) Eosinophils % 1 % (0-5) Toxic Granulation Slight Platelet Estimate Adequate (ADEQUATE) Sodium Level 140 mmol/L (136-145) 136 mmol/L (136-145) Potassium Level 3.3 mmol/L (3.5-5.1) 3.8 mmol/L (3.5-5.1) Chloride Level 106 mmol/L (98-107) 104 mmol/L (98-107) Carbon Dioxide Level 23 mmol/L (21-32) 25 mmol/L (21-32) Anion Gap 11 (6-14) 7 (6-14) Blood Urea Nitrogen 27 mg/dL (8-26) 21 mg/dL (8-26) Creatinine 0.9 mg/dL (0.7-1.3) 0.9 mg/dL (0.7-1.3) Estimated GFR (Cockcroft-Gault) 86.7 86.7 Glucose Level 101 mg/dL (70-99) 105 mg/dL (70-99) Calcium Level 7.1 mg/dL (8.5-10.1) 7.9 mg/dL (8.5-10.1) BUN/Creatinine Ratio 23 (6-20) Total Bilirubin 0.7 mg/dL (0.2-1.0) Aspartate Amino Transf (AST/SGOT) 19 U/L (15-37) Alanine Aminotransferase (ALT/SGPT) 18 U/L (16-63) Alkaline Phosphatase 164 U/L (46-116) Total Protein 5.0 g/dL (6.4-8.2) Albumin 1.6 g/dL (3.4-5.0) Albumin/Globulin Ratio 0.5 (1.0-1.7) Laboratory Tests Test 05/27/18 15:00 Sodium Level 136 mmol/L (136-145) Potassium Level 3.8 mmol/L (3.5-5.1) Chloride Level 104 mmol/L (98-107) Carbon Dioxide Level 25 mmol/L (21-32) Anion Gap 7 (6-14) Blood Urea Nitrogen 21 mg/dL (8-26) Creatinine 0.9 mg/dL (0.7-1.3) Estimated GFR (Cockcroft-Gault) 86.7 BUN/Creatinine Ratio 23 (6-20) Glucose Level 105 mg/dL (70-99) Calcium Level 7.9 mg/dL (8.5-10.1) Total Bilirubin 0.7 mg/dL (0.2-1.0) Aspartate Amino Transf (AST/SGOT) 19 U/L (15-37) Alanine Aminotransferase (ALT/SGPT) 18 U/L (16-63) Alkaline Phosphatase 164 U/L (46-116) Total Protein 5.0 g/dL (6.4-8.2) Albumin 1.6 g/dL (3.4-5.0) Albumin/Globulin Ratio 0.5 (1.0-1.7) Medications Active Scripts Medications Dose Route/Sig Max Daily Dose Days Date Category Dose Instructions Eliquis (Apixaban) 5 Mg Tablet 5 Mg PO BID 12/05/17 Reported Resume tomomorrow 04/05 Amlodipine Besylate 10 Mg Tablet 10 Mg PO DAILY 12/01/17 Reported Lisinopril-Hctz 20-12.5 Mg Tab (Lisinopril/Hydrochlorothiazide) 1 Each Tablet 1 Tab PO DAILY 12/01/17 Reported Allopurinol 100 Mg Tablet 100 Mg PO BID 12/01/17 Reported Comments CXR 05/28 NO SIG CHANGE Impression . IMPRESSION: 1. Expected respiratory failure ,S/P JOANNE lobectomy for lung cancer.Adenosquamous, stage IIIB 2. Status post left posterior lateral thoracotomy, left upper lobectomy, mediastinal lymphadenopathy. 3. Tobacco dependence, in remission, quit 14 years ago. 4. 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 5. HYPERCAPNIA, resolved 6 METABOLIC ENCEPHALOPATHY , Resolved 7. SUBCUTANEOUS EMPHYSEMA, improved 8. PSEUDOOBSTRUCTION COLON S/P COLONOSCOPY FOR DECOMPRESSION/ improving Diagnosis: A. Lung lobe, left upper lobectomy: - ADENOSQUAMOUS CARCINOMA, INVASIVE, MODERATELY TO POORLY DIFFERENTIATED, FORMING A CAVITARY LUNG MASS MEASURING 6.9 CM IN GREATEST DIMENSION. SEE SYNOPTIC REPORT. - METASTATIC ADENOCARCINOMA INVOLVING ONE OF FOUR PERIBRONCHIAL LYMPH NODES (1/). - Focal tumor invasion of visceral pleura. - Focal tumor vascular invasion within neoplasm. - Bronchial margin of resection negative for tumor. - Pulmonary vascular margins of resection negative for tumor. - Obstructive lipoid pneumonia of lung, focal. . B. Segments of lymph node and fibroadipose tissue, level 9 mediastinal lymph node: - Negative for tumor. . C. Segments of lymph node and fibroadipose tissue, level 10 mediastinal lymph node: - METASTATIC ADENOCARCINOMA. . D. Segment of lymph node and fibroadipose tissue, level 6 mediastinal lymph node: - METASTATIC ADENOCARCINOMA. . E. Segments of lymph node and fibroadipose tissue, level 5 mediastinal lymph node: - Negative for tumor. . F. Segments of lymph node and fibroadipose tissue, level 11 mediastinal lymph node: - Negative for tumor. Plan . PULMONARY STATUS IMPROVING INCREASE PT DC IV FLUIDS ADVANCE ORAL DIET PER GI CONSULT ONCOLOGY/WILL NEED ADJUVANT CHEMO IN FUTURE PRN BIAPAP SLEEP STUDY OP CHEST TUBE D/C 2/3 RE-START ELIQUIS ONCE ABLE TO TAKE PO PILLS MINIMIZE NARCOTICS FOLLOW BC / ABX PER ID D/W RN/ MATT HALL MD May 28, 2018 08:55
[2018-05-28] MEDS ORDERED: oxyCODONE IR 5 MG TABLET PO PRN (09:00)
[2018-05-28] MEDS: FAMOTIDINE 20 MG/2 ML VIAL IVP SCH ×2 (09:00→21:04)
[2018-05-28] MEDS: ELECTROLYTE (ICU) PROTOCOL. MC SCH (09:00)
[2018-05-28] MEDS ORDERED: BISACODYL 10 MG SUPP.RECT. PR ONE (09:00)
--- NOTE | 2018-05-28 09:04 | PDOC ---
Subjective: Subjective: Had a small stool last night, passed more gas this morning, had a more significant ("watery and lumpy") stool this morning. Abdomen feels better but still tight. says he's less distended but still more bloated than he usually is. Objective: Objective: RN asks if okay to start Eliquis. Vital Signs: Vital Signs Date Time Temp Pulse Resp B/P (MAP) Pulse Ox O2 Delivery O2 Flow Rate FiO2 05/28/18 04:00 Room Air 05/28/18 04:00 98.1 75 18 134/56 (82) 93 98.1 05/27/18 08:00 2.0 Labs: Laboratory Tests Test 05/27/18 15:00 Sodium Level 136 mmol/L Potassium Level 3.8 mmol/L Chloride Level 104 mmol/L Carbon Dioxide Level 25 mmol/L Anion Gap 7 Blood Urea Nitrogen 21 mg/dL Creatinine 0.9 mg/dL Estimated GFR (Cockcroft-Gault) 86.7 BUN/Creatinine Ratio 23 Glucose Level 105 mg/dL Calcium Level 7.9 mg/dL Total Bilirubin 0.7 mg/dL Aspartate Amino Transf (AST/SGOT) 19 U/L Alanine Aminotransferase (ALT/SGPT) 18 U/L Alkaline Phosphatase 164 U/L Total Protein 5.0 g/dL Albumin 1.6 g/dL Albumin/Globulin Ratio 0.5 Imaging: CXR (pending) PE: GEN: up to chair LUNGS: room air HEART: RRR ABD: round, distended, non-tender, BS more active today NEURO/PSYCH: A & O �3 A/P: Lung cancer s/p left upper lobectomy and mediastinal lymphadenectomy Gram + cocci bacteremia Ileus -s/p neostigmine, colonoscopy for decompression, suppository Anemia -- A little better. Reviewed w/ Dr. Zheng - repeat suppository, hold on CT. WAN ELIZALDE May 28, 2018 09:04
--- NOTE | 2018-05-28 09:10 | NUR ---
Recvd patient transfer to unit from ICU. Patient settled to unit and unit routines and POC explained to patient and . Verbalized understanding.
[2018-05-28] MEDS: METOPROLOL TART IMMED RELEASE 25 MG TABLET. PO SCH ×2 (09:28→21:03)
[2018-05-28] MEDS: GABAPENTIN 300 MG CAPSULE. PO SCH ×3 (09:30→21:03)
[2018-05-28] MEDS: SENNOSIDES/DOCUSATE 8.6/50MG TABLET. PO SCH ×2 (09:30→21:02)
[2018-05-28] MEDS: DOCUSATE SODIUM 100 MG CAPSULE. PO SCH ×2 (09:30→21:03)
[2018-05-28] MEDS: MULTIVIT INFUSN,ADULT 4,VIT K 10 ML, THIAMINE INJ 100 MG, FOLIC ACID INJ 1 MG in IV NOR... IV SCH (09:31)
[2018-05-28] MEDS: ANTI-COAG MONITOR BY PHARMACY. MC PRN (10:37)
--- NOTE | 2018-05-28 13:22 | RAD ---
Indication:S/P LEFT UPPER LOBECTOMY TECHNIQUE:Portable AP chest X-ray COMPARISON:05/27/2018 FINDINGS: Stable position of right-sided PICC line. Postoperative changes from left upper lobectomy with stable consolidation in the left lung apex. There is loss of left lung volume. Stable elevation of left hemidiaphragm. Mild interstitial opacities are seen in the bilateral lungs, left more than right. No pneumothorax. No large pleural effusion. Visualized bony thorax within normal limits. IMPRESSION: Stable postsurgical changes from left upper lobectomy. Slight improvement in aeration of the left lung apex. Trace left pleural effusion not ruled out. Electronically signed by: Leodan Villegas DO (05/28/2018 1:18 PM) [id number]
[2018-05-28] MEDS ORDERED: ACETAMINOPHEN 500 MG TABLET PO PRN (13:45)
[2018-05-28] MEDS ORDERED: IPRATRPIUM/ALBUTEROL 0.5/2.5MG 3 ML NEBU. NEB ONE (14:00)
[2018-05-28] MEDS ORDERED: VANCOMYCIN 1.75 GM in IV NORMAL SALINE 500ML BAG 500 ML IV SCH (14:00)
--- NOTE | 2018-05-28 14:09 | PDOC ---
Progress Note Subjective Subjective Doing well. Abdo distention improving. Tolerating liquid diet, small BM, flatus. Normotensive, SR, afebrile. CXR shows slightly improved left lung aeration. A/w blood culture identification. ROS ROS No nausea No vomiting No pain No rash Vital Sign Vital Signs Vital Signs Date Time Temp Pulse Resp B/P (MAP) Pulse Ox O2 Delivery O2 Flow Rate FiO2 05/28/18 11:00 98.3 96 17 118/56 (76) 97 Room Air 98.3 05/28/18 08:00 2.0 Labs Lab Laboratory Tests Test 05/27/18 15:00 Sodium Level 136 mmol/L (136-145) Potassium Level 3.8 mmol/L (3.5-5.1) Chloride Level 104 mmol/L (98-107) Carbon Dioxide Level 25 mmol/L (21-32) Anion Gap 7 (6-14) Blood Urea Nitrogen 21 mg/dL (8-26) Creatinine 0.9 mg/dL (0.7-1.3) Estimated GFR (Cockcroft-Gault) 86.7 BUN/Creatinine Ratio 23 (6-20) Glucose Level 105 mg/dL (70-99) Calcium Level 7.9 mg/dL (8.5-10.1) Total Bilirubin 0.7 mg/dL (0.2-1.0) Aspartate Amino Transf (AST/SGOT) 19 U/L (15-37) Alanine Aminotransferase (ALT/SGPT) 18 U/L (16-63) Alkaline Phosphatase 164 U/L (46-116) Total Protein 5.0 g/dL (6.4-8.2) Albumin 1.6 g/dL (3.4-5.0) Albumin/Globulin Ratio 0.5 (1.0-1.7) Objective Assessment POD#5, s/p left upper lobectomy and mediastinal lymphadenectomy Doing well. Abdo distention improving. Tolerating liquid diet, small BM, flatus. Normotensive, SR, afebrile. CXR shows slightly improved left lung aeration. A/w blood culture identification. 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 Will need adjuvant chemotherapy. Plan Plan of Care Continye I/S, ambulation D/c zosyn Start vancomycin as per ID Will adjust abx once cultures finalized D/c home once colonic ileus resolves NAMRATA WYATT MD May 28, 2018 14:09
[2018-05-28] MEDS ORDERED: VANCOMYCIN 2 GM in IV NORMAL SALINE 500ML BAG 500 ML IV ONE (14:15)
[2018-05-28] MEDS: VANCOMYCIN PER PHARMACY MC PRN (16:14)
--- NOTE | 2018-05-28 16:20 | NUR ---
Pharmacy Vancomycin Dosing Note S:Consulted to monitor and dose vancomycin started 05/28/18. O:RASHID MCMAHAN is a 58 year old M with Bacteremia Height: 6 feet, 2 inches Weight: 128.8 kg Blanco Body Weight: 82.20 Adjusted Body Weight: 100.92 Dosing Weight: Actual LABS: Last BUN: 21 Last Creatinine: 0.9 Creatinine Clearance: crcl>100 mL/min Last WBC: 8.8 Last Procalcitonin: Tmax (past 24 hours): 98.8 Microbiology: GPC in clusters I/O: 1472/1181 Drug Levels: Last level: on at Last dose given 05/28/18 at 1605 Vancomycin Dosing: Loading Dose: 2000 mg x1 Dosing Weight: Actual Target Trough: 15-20 A: Based on: weight and renal function P: 1. Begin Vancomycin 2000 mg IV q12h 2. Follow up Trough level on 05/30/18 at 0330 3. Pharmacy will continue to monitor, follow and adjust therapy as needed. Marci Mancera Shreya, 05/28/18 [id number]
--- NOTE | 2018-05-28 18:27 | CONS ---
DATE OF CONSULTATION: 05/28/2018 REQUESTING PHYSICIAN: Diamante Bell MD. REASON FOR CONSULTATION: Blood culture positive. HISTORY OF PRESENT ILLNESS: This is a 58-year-old gentleman who was admitted for elective thoracotomy. The patient did have some shortness of breath, has had PE, has had cavitary lesion, which was now resected. The patient did have fever after admission and the blood culture is positive gram-positive cocci 2 out of 2 clusters. Identification is pending. The patient is receiving Zosyn. The patient underwent lobectomy on 05/22/2018. The patient also required colonoscopy on 05/26/2018. The patient had left posterolateral thoracotomy with left upper lobectomy and mediastinal lymphadenectomy, the results of that was adenosquamous carcinoma, invasive, [id number]-[id number] differentiated with also metastatic involving one of the four peribronchial lymph nodes as well as focal tumor invasion of visceral pleura. The patient is alert, awake, sitting up. He does have abdominal distention and had difficulty with bowel movement, although he did have bowel movement today. Does have some mild abdominal cramping. Denies any nausea, vomiting. Denies any urinary symptoms. Denies any headache, chest pain, fever, although she does have some shortness of breath. PAST MEDICAL HISTORY: Positive for DVT and PE, hypertension, hyperlipidemia. SOCIAL HISTORY: Negative for smoking, alcohol use or drug use. ALLERGIES: No known drug allergies. CURRENT MEDICATIONS: Reviewed. The patient is on Zosyn. REVIEW OF SYSTEMS: As per HPI. All other systems reviewed and are negative. PHYSICAL EXAMINATION: GENERAL: Alert and oriented gentleman, not in any distress. VITAL SIGNS: Stable, afebrile. HEENT: NAD. NECK: Supple, no JVP, no lymphadenopathy. LUNGS: Clear. Decreased breath sounds on the left. The incisions are unremarkable for any infection. ABDOMEN: Distended, tympanic. No tenderness, no rebound or guarding, no organomegaly appreciated. EXTREMITIES: No edema or cyanosis. SKIN: Unremarkable. NEUROLOGIC: The patient is neurologically alert, awake and appropriate. No focal neurologic deficit. LABORATORY DATA: White count is down to 8.8 from as high as 16.7, hemoglobin 9.1, platelets are 230,000. BUN and creatinine is normal. Albumin is 1.6. C. diff is negative. Blood culture on 05/24/2018 was positive with Gram-positive cocci in clusters. Identification is pending. Repeat blood culture on 05/26/2018 is negative. Chest x-ray and CT abdomen and pelvis all reviewed. Pathology report reviewed. IMPRESSION: 1. Invasive adenosquamous carcinoma with metastasis to the lymph node as well as visceral pleura. 2. Blood culture positive with Gram-positive cocci in clusters. Identification is pending. Possible coagulase-negative Staph. 3. Fever early on, which has been resolved. 4. Leukocytosis, which has improved. 5. Abdominal distention/ileus. 6. Colon polyp. RECOMMENDATION: Would change Zosyn to vancomycin. As soon as identification is known we will have further recommendations on the antibiotics, supportive care, PT/OT and Oncology to see the patient. Detailed discussion done with the patient and the patient's . Thank you very much, Dr. Bell, for giving me the opportunity to participate in this patient's care. TOMAS LOWERY MD DR: REBEKAH/caridad JOB#: [id number] / [id number] [place]
[2018-05-28] MEDS: IPRATRPIUM/ALBUTEROL 0.5/2.5MG 3 ML NEBU. NEB SCH (20:16)
[2018-05-28] MEDS: LACTOBACILLUS RHAMNOSUS GG 1 CAPSULE. PO SCH (21:03)
[2018-05-28] MEDS: APIXABAN 5 MG TABLET. PO SCH (21:03)
--- NOTE | 2018-05-28 22:43 | CONS ---
DATE OF CONSULTATION: 05/28/2018 REQUESTING PHYSICIAN: Dr. Kaiden Nogueira. REASON FOR CONSULTATION: Lung cancer status post surgery. HISTORY OF PRESENT ILLNESS: The patient is a 58-year-old gentleman who was diagnosed with adenosquamous carcinoma of the left upper lobe on 04/04/2018. PET scan on 04/18/2018 revealed a 6.6 cm cavitary left upper lobe lung mass with no evidence of metastatic disease. He was evaluated by Cardiothoracic Surgery, Dr. Bell and he underwent left posterolateral thoracotomy, left upper lobectomy and mediastinal lymphadenectomy on 05/22/2017. Pathology revealed adenosquamous carcinoma. Invasive, thumfitj-pz-[id number] differentiated, measuring 6.9 cm. There was metastatic adenocarcinoma involving 1 of 4 peribronchial lymph nodes. There was also evidence of metastatic adenocarcinoma to level 10 mediastinal lymph node and level 6 mediastinal lymph node. There was also evidence of visceral pleural invasion and lymphovascular invasion. All the margins were negative. Total of 3 out of 9 lymph nodes were involved. It was staged as a T3N2M0, stage 3B lung cancer. He is undergoing postoperative care and I was asked to see the patient for further evaluation of lung cancer. His primary oncologist is Dr. Eneida Delgadillo. PAST MEDICAL HISTORY: History of alcoholism. DVT right lower extremity and recurrent bilateral lower extremity DVT in 11/2017. Gout, hypertension, osteomyelitis, pulmonary embolism in 11/2017. FAMILY HISTORY: Father had prostate cancer. Maternal grandfather had prostate cancer. Paternal uncle had liver cancer. SOCIAL HISTORY: He is a former smoker, [id number]. REVIEW OF SYSTEMS: A 12-point review of system was performed. Pertinent positives are mentioned in the history of presenting illness. Rest of the system review is negative. PHYSICAL EXAMINATION: VITAL SIGNS: Blood pressure 112/57, temperature 98.2. HEENT: Head: Atraumatic, normocephalic. Eyes: No icterus. NECK: Supple. CHEST: Bilaterally symmetrical. HEART: S1, S2 normal. ABDOMEN: Soft, nontender. CENTRAL NERVOUS SYSTEM: No focal deficits. LYMPHATICS: No lymphadenopathy. SKIN: No rashes. PSYCHOLOGIC: Mood and affect are appropriate. MUSCULOSKELETAL: No joint effusions. LABORATORY DATA: WBC 8.8, hemoglobin 9.1, platelet count 230, creatinine 0.9, calcium 7.9. IMPRESSION AND PLAN: 1. 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 Pathology revealed a T3N2M0 stage 3B lung cancer. I would recommend adjuvant chemotherapy with cisplatin and Navelbine to start in about 4 weeks. He will follow up with his primary oncologist, Dr. Delgadillo in about 3-4 weeks. I discussed in detail with the patient and his . I also discussed with Dr. Kaiden Nogueira. 2. Pseudoobstruction of the colon, status post colonoscopy for decompression. He is improving. 3. Anemia. His hemoglobin was normal preoperatively. Hence, the drop in the hemoglobin is consistent with surgery. Hemoglobin 9.1 on 05/26/2018. Continue to monitor p.r.n. BAHMAN MARINELLI MD DR: MILAGRO/caridad JOB#: [id number] / [id number]
[2018-05-29 03:00] VITALS: BP 162/66
[2018-05-29] MEDS: VANCOMYCIN 2 GM in IV NORMAL SALINE 500ML BAG 500 ML IV SCH ×2 (04:22→15:50)
[2018-05-29 07:04] LABS: CREATININE 0.9 mg/dL (0.7-1.3); GFR 86.7
[2018-05-29 07:18] VITALS: BP 127/54
[2018-05-29] MEDS: IPRATRPIUM/ALBUTEROL 0.5/2.5MG 3 ML NEBU. NEB SCH ×4 (07:22→19:39)
--- NOTE | 2018-05-29 08:08 | RAD ---
Indication:S/P LEFT UPPER LOBECTOMY TECHNIQUE:Portable AP chest X-ray COMPARISON:05/28/2018 FINDINGS: Heart is normal in size. Loss of left lung volume. Status post left upper lobectomy with stable deviation of the mid trachea to the left side. Stable opacification is seen of the left lung apex. Right lung is clear. Stable position of right-sided PICC line. No pneumothorax. Stable elevation of the left hemidiaphragm. Visualized bony thorax within normal limits. IMPRESSION: Changes of left upper lobectomy with stable opacification of the left lung apex which may be related to postsurgical changes or pneumonia. Findings not significant changed when compared to previous exam. Electronically signed by: Leodan Villegas DO (05/29/2018 8:03 AM) [id number]
[2018-05-29] MEDS: MULTIVITAMIN with MINERAL TABLET. PO SCH (08:37)
[2018-05-29] MEDS: FOLIC ACID 1 MG TABLET. PO SCH (08:37)
[2018-05-29] MEDS: SENNOSIDES/DOCUSATE 8.6/50MG TABLET. PO SCH ×2 (08:37→21:00)
[2018-05-29] MEDS: DOCUSATE SODIUM 100 MG CAPSULE. PO SCH ×2 (08:37→21:00)
[2018-05-29] MEDS: APIXABAN 5 MG TABLET. PO SCH ×2 (08:37→21:00)
[2018-05-29] MEDS: GABAPENTIN 300 MG CAPSULE. PO SCH ×3 (08:38→21:00)
[2018-05-29] MEDS: LACTOBACILLUS RHAMNOSUS GG 1 CAPSULE. PO SCH ×2 (08:39→21:00)
[2018-05-29] MEDS: THIAMINE 100 MG TABLET. PO SCH (08:39)
--- NOTE | 2018-05-29 08:39 | PDOC ---
Infectious Disease Note Subjective Subjective feeling better, had multiple BM yesterday ROS ROS no n/v/d/sob/fever Vital Sign Vital Signs Vital Signs Date Time Temp Pulse Resp B/P (MAP) Pulse Ox O2 Delivery O2 Flow Rate FiO2 05/29/18 07:23 93 Room Air 05/29/18 07:18 97.5 68 18 127/54 (78) 97.5 05/28/18 08:00 2.0 Physical Exam PHYSICAL EXAM GENERAL: Alert and oriented gentleman, not in any distress. VITAL SIGNS: Stable, afebrile. HEENT: NAD. NECK: Supple, no JVP, no lymphadenopathy. LUNGS: Clear. Decreased breath sounds on the left. The incisions are unremarkable for any infection. ABDOMEN: Distended, tympanic. No tenderness, no rebound or guarding, no organomegaly appreciated. EXTREMITIES: No edema or cyanosis. SKIN: Unremarkable. NEUROLOGIC: The patient is neurologically alert, awake and appropriate. No focal neurologic deficit. Labs Lab Laboratory Tests Test 05/29/18 06:30 Creatinine 0.9 mg/dL (0.7-1.3) Estimated GFR (Cockcroft-Gault) 86.7 Micro BC + G + cocci Objective Assessment BC + with G + cocci , ID pending Lung ca s/p lobectomy Ileus Colon polyp Fever Leukocytosis Plan Plan of Care Continye I/S, ambulation vancomycin as per ID Will adjust abx once cultures finalized D/c home once colonic ileus resolves d/w TOMAS LOWERY MD May 29, 2018 08:39
[2018-05-29] MEDS: FAMOTIDINE 20 MG/2 ML VIAL IVP SCH ×2 (08:42→20:56)
[2018-05-29] MEDS: METOPROLOL TART IMMED RELEASE 25 MG TABLET. PO SCH ×2 (08:43→21:00)
--- NOTE | 2018-05-29 08:59 | PDOC ---
Progress Note Subjective Subjective Doing well. Abdo distention improving. Tolerating liquid diet, multiple small BM , flatus. Normotensive, SR, afebrile. CXR shows improved left lung aeration.Blood culture identification not back. ROS ROS No nausea No vomiting No pain No rash Vital Sign Vital Signs Vital Signs Date Time Temp Pulse Resp B/P (MAP) Pulse Ox O2 Delivery O2 Flow Rate FiO2 05/29/18 07:23 93 Room Air 05/29/18 07:18 97.5 68 18 127/54 (78) 97.5 05/28/18 08:00 2.0 Physical Exam PHYSICAL EXAM GENERAL: Alert and oriented gentleman, not in any distress. VITAL SIGNS: Stable, afebrile. HEENT: NAD. NECK: Supple, no JVP, no lymphadenopathy. LUNGS: Clear. Decreased breath sounds on the left. The incisions are unremarkable for any infection. ABDOMEN: Distended, tympanic. No tenderness, no rebound or guarding, no organomegaly appreciated. EXTREMITIES: No edema or cyanosis. SKIN: Unremarkable. NEUROLOGIC: The patient is neurologically alert, awake and appropriate. No focal neurologic deficit. Labs Lab Laboratory Tests Test 05/29/18 06:30 Creatinine 0.9 mg/dL (0.7-1.3) Estimated GFR (Cockcroft-Gault) 86.7 Objective Assessment POD#6, s/p left upper lobectomy and mediastinal lymphadenectomy Doing well. Abdo distention improving. Tolerating liquid diet, multiple small BM , flatus. Normotensive, SR, afebrile. CXR shows improved left lung aeration.Blood culture identification not back. 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 Will start adjuvant chemotherapy with Cisplatin and Navelbine in 4 weeks Plan Plan of Care Continye I/S, ambulation Vancomycin as per ID Final cultures not back-would call the lab at this point Dispo planning pending final GI recs Hopefully d/c home tomorrow or Sunday Will start adjuvant chemotheraoy with Cisplatin and Navelbine in 4 weeks NAMRATA WYATT MD May 29, 2018 08:59
--- NOTE | 2018-05-29 09:15 | PDOC ---
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 ROS - no CP Objective Objective Vital Signs Date Time Temp Pulse Resp B/P (MAP) Pulse Ox O2 Delivery O2 Flow Rate FiO2 05/29/18 08:43 85 05/29/18 07:23 93 Room Air 05/29/18 07:18 97.5 18 127/54 (78) 97.5 05/28/18 08:00 2.0 Intake and Output 05/29/18 07:01 Intake Total 250 ml Output Total 350 ml Balance -100 ml Intake Oral 250 ml Output Urine Total 350 ml # Voids 1 # Bowel Movements 2 Physical Exam General: Alert, Oriented X3, No acute distress Neck: No JVD Neuro: Normal speech Psych/Mental Status: Mental status NL Assessment Assessment IMPRESSION AND PLAN: 1. 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 Pathology revealed a T3N2M0 stage 3B lung cancer. I would recommend adjuvant chemotherapy with cisplatin and Navelbine to start in about 4 weeks followed by immunotherapy with Imfinzi. He will follow up with his primary oncologist, Dr. Delgadillo in about 3-4 weeks. I discussed in detail with the patient and his . I also discussed with Dr. Kaiden Nogueira and Dr Bell. I also reviewed his case at multidisciplinary tumor conference. 2. Pseudoobstruction of the colon, status post colonoscopy for decompression. He is improving. 3. Anemia. His hemoglobin was normal preoperatively. Hence, the drop in the hemoglobin is consistent with surgery. Hemoglobin 9.1 on 05/26/2018. Continue to monitor p.r.n. Comment Review of Relevant I have reviewed the following items florencio (where applicable) has been applied. Labs Laboratory Tests Test 05/27/18 15:00 05/29/18 06:30 Sodium Level 136 mmol/L (136-145) Potassium Level 3.8 mmol/L (3.5-5.1) Chloride Level 104 mmol/L (98-107) Carbon Dioxide Level 25 mmol/L (21-32) Anion Gap 7 (6-14) Blood Urea Nitrogen 21 mg/dL (8-26) Creatinine 0.9 mg/dL (0.7-1.3) 0.9 mg/dL (0.7-1.3) Estimated GFR (Cockcroft-Gault) 86.7 86.7 BUN/Creatinine Ratio 23 (6-20) Glucose Level 105 mg/dL (70-99) Calcium Level 7.9 mg/dL (8.5-10.1) Total Bilirubin 0.7 mg/dL (0.2-1.0) Aspartate Amino Transf (AST/SGOT) 19 U/L (15-37) Alanine Aminotransferase (ALT/SGPT) 18 U/L (16-63) Alkaline Phosphatase 164 U/L (46-116) Total Protein 5.0 g/dL (6.4-8.2) Albumin 1.6 g/dL (3.4-5.0) Albumin/Globulin Ratio 0.5 (1.0-1.7) Laboratory Tests Test 05/29/18 06:30 Creatinine 0.9 mg/dL (0.7-1.3) Estimated GFR (Cockcroft-Gault) 86.7 Microbiology 05/26/18 Blood Culture - Preliminary, Resulted NO GROWTH AFTER 2 DAYS Medications Current Medications Ondansetron HCl (Zofran) 4 mg PRN Q6HRS PRN IV NAUSEA/VOMITING; Start 05/22/18 at 07:00; Stop 05/22/18 at 14:47; Status DC Fentanyl Citrate (Fentanyl 2ml Vial) 25 mcg PRN Q5MIN PRN IV MILD PAIN; Start 05/22/18 at 07:00; Stop 05/23/18 at 06:59; Status DC Fentanyl Citrate (Fentanyl 2ml Vial) 50 mcg PRN Q5MIN PRN IV MODERATE TO SEVERE PAIN; Start 05/22/18 at 07:00; Stop 05/23/18 at 06:59; Status DC Morphine Sulfate (Morphine Sulfate) 1 mg PRN Q10MIN PRN IV SEVERE PAIN; Start 05/22/18 at 07:00; Stop 05/23/18 at 06:59; Status DC Ringer's Solution 1,000 ml @ 30 mls/hr Q24H IV Last administered on 05/22/18at 08:00; Start 05/22/18 at 07:00; Stop 05/22/18 at 18:59; Status DC Lidocaine HCl (Xylocaine-Mpf 1% 2ml Vial) 2 ml PRN 1X PRN ID IV START; Start at 07:00; Stop 05/23/18 at 06:59; Status DC Hydromorphone HCl (Dilaudid) 0.5 mg PRN Q10MIN PRN IV SEV PAIN, Second choice; Start 05/22/18 at 07:00; Stop 05/23/18 at 06:59; Status DC Prochlorperazine Edisylate (Compazine) 5 mg PACU PRN PRN IV NAUSEA, MRX1; Start 05/22/18 at 07:00; Stop 05/23/18 at 06:59; Status DC Cefazolin Sodium 1 gm/Sodium Chloride 500 ml @ 500 mls/hr 1X ONCE IRR Last administered on 05/22/18at 09:56; Start 05/22/18 at 06:00; Stop 05/22/18 at 06:59 ; Status DC Cefazolin Sodium/ Dextrose 50 ml @ 100 mls/hr 1X PREOP PRN IV PRIOR TO PROCEDURE; Start 05/22/18 at 06:00; Stop 05/22/18 at 18:00; Status DC Cellulose (Surgicel Hemostat 4x8) 1 each STK-MED ONCE .ROUTE Last administered on 05/22/18at 13:24; Start 05/22/18 at 07:38; Stop 05/22/18 at 07:41; Status DC Cellulose (Surgicel Hemostat 4x8) 1 each STK-MED ONCE .ROUTE ; Start 05/22/18 at 07:38; Stop 05/22/18 at 07:41; Status DC Dexamethasone Sodium Phosphate (Decadron) 20 mg STK-MED ONCE .ROUTE ; Start at 08:41; Stop 05/22/18 at 08:43; Status DC Lidocaine HCl (Lidocaine Pf 2% Vial) 5 ml STK-MED ONCE .ROUTE ; Start 05/22/18 at 08:41; Stop 05/22/18 at 08:43; Status DC Propofol 20 ml @ As Directed STK-MED ONCE IV ; Start 05/22/18 at 08:41; Stop at 08:44; Status DC Ondansetron HCl (Zofran) 4 mg STK-MED ONCE .ROUTE ; Start 05/22/18 at 08:41; Stop 05/22/18 at 08:44; Status DC Rocuronium [place] (Zemuron) 100 mg STK-MED ONCE .ROUTE ; Start 05/22/18 at 08: 41; Stop 05/22/18 at 08:44; Status DC Midazolam HCl (Versed) 2 mg STK-MED ONCE .ROUTE ; Start 05/22/18 at 08:42; Stop 05/22/18 at 08:44; Status DC Fentanyl Citrate (Fentanyl 5ml Vial) 250 mcg STK-MED ONCE .ROUTE ; Start at 08:46; Stop 05/22/18 at 08:48; Status DC Ephedrine Sulfate (ePHEDrine PF IN SALINE SYRINGE) 50 mg STK-MED ONCE IV ; Start 05/22/18 at 08:47; Stop 05/22/18 at 08:48; Status DC Glycopyrrolate (Robinul) 1 mg STK-MED ONCE .ROUTE ; Start 05/22/18 at 08:47; Stop 05/22/18 at 08:49; Status DC Sodium Chloride 35 ml/Fentanyl Citrate 250 mcg/ Ropivacaine 10 ml/ Epidural Dosage Infused (Pha) 50 ml @ 0 mls/hr CONT PRN EPID SEE PROTOCOL TABLE Last administered on 05/24/18at 10:19; Start 05/22/18 at 09:30; Stop 05/26/18 at 13:09; Status DC Succinylcholine Chloride (Anectine) 200 mg STK-MED ONCE .ROUTE ; Start 05/22/18 at 09:45; Stop 05/22/18 at 09:47; Status DC Bupivacaine HCl (Sensorcaine Mpf 0.5%) 30 ml STK-MED ONCE .ROUTE ; Start at 10:53; Stop 05/22/18 at 10:56; Status DC Bupivacaine HCl (Sensorcaine-Mpf 0.25%) 10 ml STK-MED ONCE .ROUTE ; Start at 10:54; Stop 05/22/18 at 10:56; Status DC Rocuronium [place] (Zemuron) 100 mg STK-MED ONCE .ROUTE ; Start 05/22/18 at 11: 42; Stop 05/22/18 at 11:45; Status DC Propofol 20 ml @ As Directed STK-MED ONCE IV ; Start 05/22/18 at 11:43; Stop at 11:45; Status DC Phenylephrine HCl (PHENYLEPHRINE in 0.9% NACL PF) 1 mg STK-MED ONCE IV ; Start 05/22/18 at 11:43; Stop 05/22/18 at 11:45; Status DC Phenylephrine HCl (PHENYLEPHRINE in 0.9% NACL PF) 1 mg STK-MED ONCE IV ; Start 05/22/18 at 11:43; Stop 05/22/18 at 11:45; Status DC Cefazolin Sodium/ Dextrose (Ancef 2gm Premix) 2 gm STK-MED ONCE IV ; Start 05/22 at 08:00; Stop 05/22/18 at 13:23; Status DC Lidocaine HCl (Lidocaine Pf 2% Vial) 5 ml STK-MED ONCE .ROUTE ; Start 05/22/18 at 14:08; Stop 05/22/18 at 14:10; Status DC Propofol 100 ml @ As Directed STK-MED ONCE IV ; Start 05/22/18 at 14:36; Stop 05/22/18 at 14:38; Status DC Diphenhydramine HCl (Benadryl) 25 mg PRN Q6HRS PRN IV ITCHING; Start 05/22/18 at 14:45 Famotidine (Pepcid Vial) 20 mg BID IVP Last administered on 05/29/18at 08:42; Start 05/22/18 at 21:00 Info (Icu Electrolyte Protocol) 1 ea DAILY MC Last administered on 05/27/18at 09: 00; Start 05/23/18 at 09:00; Stop 05/28/18 at 09:32; Status DC Heparin Sodium (Porcine) (Heparin Sodium) 5,000 unit Q8HRS SQ Last administered on 05/28/18at 05:46; Start 05/22/18 at 22:00; Stop 05/28/18 at 09:28; Status DC Sodium Chloride (Normal Saline Flush) 3 ml QSHIFT PRN IV AFTER MEDS AND BLOOD DRAWS; Start 05/22/18 at 14:45 Oxycodone HCl (Roxicodone) 10 mg PRN Q4HRS PRN PO MODERATE PAIN, SEVERE PAIN Last administered on 05/23/18 21:29; Start 05/22/18 at 14:45; Stop 05/28/18 at 08:57; Status DC Ketorolac Tromethamine (Toradol 15mg Vial) 15 mg PRN Q6HRS PRN IV PAIN Last administered on 05/23/18 18:59; Start 05/22/18 at 14:45; Stop 05/24/18 at 06:31 ; Status DC Acetaminophen (Tylenol) 650 mg PRN Q6HRS PRN PO Headaches, Temp > 101.5F Last administered on 05/24/18 16:11; Start 05/22/18 at 14:45; Stop 05/28/18 at 13:41; Status DC Gabapentin (Neurontin) 600 mg Q8HRS PO Last administered on 05/23/18 21:27; Start 05/22/18 at 22:00; Stop 05/24/18 at 11:16; Status DC Naloxone HCl (Narcan) 0.4 mg PRN Q2MIN PRN IV SEE INSTRUCTIONS Last administered on 05/24/18 04:41; Start 05/22/18 at 14:45 Morphine Sulfate (Morphine Sulfate) 2 mg PRN Q1HR PRN IV PAIN; Start 05/22/18 at 14:45; Status UNV Ondansetron HCl (Zofran) 4 mg PRN Q6HRS PRN IV NAUESA, 1ST CHOICE Last administered on 05/23/18 14:00; Start 05/22/18 at 14:45 Prochlorperazine Edisylate (Compazine) 5 mg PRN Q6HRS PRN IV N/V, 2nd Choice, MR X1; Start 05/22/18 at 14:45 Metoclopramide HCl (Reglan Vial) 5 mg PRN Q6HRS PRN IV Nausea/Vomiting, 3rd Choice Last administered on 05/24/18 16:30; Start 05/22/18 at 14:45 Senna/Docusate Sodium (Senna Plus) 1 tab BID PO Last administered on 05/29/18 08:37; Start 05/22/18 at 21:00 Docusate Sodium (Colace) 100 mg BID PO Last administered on 05/29/18 08:37; Start 05/22/18 at 21:00 Cefazolin Sodium/ Dextrose 50 ml @ 100 mls/hr Q6H IV Last administered on 05/23at 04:35; Start 05/22/18 at 16:45; Stop 05/23/18 at 05:14; Status DC Metoprolol Tartrate (Lopressor) 25 mg BID PO Last administered on 05/29/18at 08: 43; Start 05/22/18 at 21:00 Hydralazine HCl (Apresoline Inj) 25 mg PRN Q2HRS PRN IVP ELEVATED BP, SEE COMMENTS; Start 05/22/18 at 17:00 Insulin Human Regular (HumuLIN R VIAL) 10 unit 1X ONCE IV Last administered on 05/24/18at 06:39; Start 05/24/18 at 07:00; Stop 05/24/18 at 07:01; Status DC Dextrose (Dextrose 50%-Water Syringe) 25 gm 1X ONCE IV Last administered on 05/24/18at 06:41; Start 05/24/18 at 07:00; Stop 05/24/18 at 07:01; Status DC Albuterol Sulfate (Ventolin Neb Soln) 2.5 mg PRN Q4HRS PRN NEB SHORTNESS OF BREATH; Start 05/24/18 at 11:15 Sodium Chloride 1,000 ml @ 80 mls/hr [id number] IV Last administered on 05/27/18at 23:16; Start 05/24/18 at 14:30; Stop 05/28/18 at 09:28; Status DC Multivitamins 10 ml/Thiamine HCl 100 mg/Folic Acid 1 mg/Sodium Chloride 1,011.2 ml @ 80 mls/hr DAILY IV Last administered on 05/28/18at 09:31; Start 05/24/18 at 15:30; Stop 05/28/18 at 10:14; Status DC Piperacillin Sod/ Tazobactam Sod 4.5 gm/Sodium Chloride 100 ml @ 200 mls/hr Q6HRS IV Last administered on 05/28/18at 12:56; Start 05/24/18 at 18:00; Stop 05/28 at 13:59; Status DC Ketorolac Tromethamine (Toradol 15mg Vial) 15 mg PRN Q6HRS PRN IV PAIN Last administered on 05/26/18at 18:23; Start 05/24/18 at 17:15; Stop 05/29/18 at 17:14 Gabapentin (Neurontin) 600 mg TID PO Last administered on 05/29/18at 08:38; Start 05/24/18 at 21:00 Neostigmine Methylsulfate (Bloxiverz) 1.5 mg 1X ONCE IV Last administered on at 17:22; Start 05/25/18 at 17:15; Stop 05/25/18 at 17:16; Status DC Atropine Sulfate (ATROPINE 1mg SYRINGE) 1 mg PRN 1X PRN IV SYMPTOMATIC BRADYCARDIA; Start 05/25/18 at 17:15 Propofol 20 ml @ As Directed STK-MED ONCE IV ; Start 05/26/18 at 09:10; Stop 05/26 at 09:12; Status DC Propofol 0 ml @ As Directed STK-MED ONCE IV ; Start 05/26/18 at 09:10; Stop at 09:12; Status DC Propofol 20 ml @ As Directed STK-MED ONCE IV ; Start 05/26/18 at 10:57; Stop 05/26 at 11:00; Status DC Neostigmine Methylsulfate (Bloxiverz) 2 mg 1X ONCE IV Last administered on 05/26at 11:15; Start 05/26/18 at 11:15; Stop 05/26/18 at 11:16; Status DC Potassium Chloride/Water 50 ml @ 50 mls/hr 1X ONCE IV Last administered on 05/26at 17:12; Start 05/26/18 at 17:00; Stop 05/26/18 at 17:59; Status DC Potassium Chloride/Water 50 ml @ 50 mls/hr Q1H IV Last administered on at 11:12; Start 05/27/18 at 11:30; Stop 05/27/18 at 13:29; Status DC Bisacodyl (Dulcolax Supp) 10 mg PRN DAILY PRN DE CONSTIPATION Last administered on 05/27/18at 15:23; Start 05/27/18 at 14:45 Oxycodone HCl (Roxicodone) 5 mg PRN Q4HRS PRN PO MODERATE PAIN, SEVERE PAIN; Start 05/28/18 at 09:00; Stop 05/28/18 at 13:38; Status DC Bisacodyl (Dulcolax Supp) 10 mg 1X ONCE DE Last administered on 05/28/18 12:04 ; Start 05/28/18 at 09:00; Stop 05/28/18 at 09:06; Status DC Apixaban (Eliquis) 5 mg BID PO Last administered on 05/29/18 08:37; Start at 21:00 Info (Anti-Coagulation Monitoring By Pharmacy) 1 each PRN DAILY PRN MC SEE COMMENTS Last administered on 05/28/18 10:37; Start 05/28/18 at 09:45 Multivitamins (Thera M Plus) 1 tab DAILY PO Last administered on 05/29/18 08:37 ; Start 05/29/18 at 09:00 Folic Acid (Folic Acid) 1 mg DAILY PO Last administered on 05/29/18 08:37; Start 05/29/18 at 09:00 Thiamine Mononitrate (Vitamin B-1) 100 mg DAILY PO Last administered on 08:39; Start 05/29/18 at 09:00 Lactobacillus Rhamnosus (Culturelle) 1 cap BID PO Last administered on 08:39; Start 05/28/18 at 21:00 Acetaminophen (Tylenol) 500 mg PRN Q6HRS PRN PO MILD PAIN / TEMP; Start at 13:45 Albuterol/ Ipratropium (Duoneb) 3 ml RTQID NEB Last administered on 05/29/18 07 :22; Start 05/28/18 at 16:00 Albuterol/ Ipratropium (Duoneb) 3 ml 1X ONCE NEB Last administered on 14:07; Start 05/28/18 at 14:00; Stop 05/28/18 at 14:01; Status DC Vancomycin HCl 1.75 gm/Sodium Chloride 500 ml @ 250 mls/hr Q12H IV ; Start 05/28 at 14:00; Status UNV Vancomycin HCl (Vanco Per Pharmacy) 1 each PRN DAILY PRN MC SEE COMMENTS Last administered on 05/28/18 16:14; Start 05/28/18 at 14:15 Vancomycin HCl 2 gm/Sodium Chloride 500 ml @ 250 mls/hr ONCE ONCE IV Last administered on 2/5/19at 16:05; Start 05/28/18 at 14:15; Stop 05/28/18 at 16:14; Status DC Vancomycin HCl 2 gm/Sodium Chloride 500 ml @ 250 mls/hr Q12H IV Last administered on 05/29/18at 04:22; Start 05/29/18 at 04:00 Vancomycin HCl (Vancomycin Trough Level) 1 each 1X ONCE MC ; Start 05/30/18 at 03:30; Stop 05/30/18 at 03:31 Active Scripts Active Reported Eliquis (Apixaban) 5 Mg Tablet 5 Mg PO BID Resume tomomorrow 04/05 Amlodipine Besylate 10 Mg Tablet 10 Mg PO DAILY Lisinopril-Hctz 20-12.5 Mg Tab (Lisinopril/Hydrochlorothiazide) 1 Each Tablet 1 Tab PO DAILY Allopurinol 100 Mg Tablet 100 Mg PO BID Vitals/I & O Vital Sign - Last 24 Hours 05/28/18 05/28/18 05/28/18 05/28/18 09:28 11:00 14:09 14:09 Temp 98.3 98.3 Pulse 75 96 Resp 17 B/P (MAP) 118/56 (76) Pulse Ox 97 94 94 O2 Delivery Room Air Room Air Room Air 05/28/18 05/28/18 05/28/18 05/28/18 15:00 18:08 20:00 20:14 Temp 98.5 97.9 98.5 97.9 Pulse 70 76 Resp 17 18 B/P (MAP) 111/61 (78) 137/55 (82) Pulse Ox 96 99 93 O2 Delivery Room Air Room Air Room Air Room Air 05/28/18 05/28/18 05/29/18 05/29/18 21:03 22:46 03:00 07:18 Temp 98.1 98.0 97.5 98.1 98.0 97.5 Pulse 76 66 69 68 Resp 16 18 B/P (MAP) 137/55 135/60 (85) 162/66 (98) 127/54 (78) Pulse Ox 90 92 93 O2 Delivery Room Air Room Air Room Air 05/29/18 05/29/18 07:23 08:43 Pulse 85 Pulse Ox 93 O2 Delivery Room Air Intake and Output 05/28/18 05/28/18 05/29/18 15:01 23:01 07:01 Intake Total 250 ml Output Total 350 ml Balance -350 ml 250 ml BAHMAN MARINELLI MD May 29, 2018 09:15
[2018-05-29] MEDS: ANTI-COAG MONITOR BY PHARMACY. MC PRN (10:28)
[2018-05-29] MEDS: VANCOMYCIN PER PHARMACY MC PRN (10:29)
--- NOTE | 2018-05-29 10:56 | PDOC ---
Subjective: Subjective: Reports 5 stools yesterday - some small, some "pretty good." [place] better after. says abdominal "tightness" with eating. Objective: Vital Signs: Vital Signs Date Time Temp Pulse Resp B/P (MAP) Pulse Ox O2 Delivery O2 Flow Rate FiO2 05/29/18 08:43 85 05/29/18 07:23 93 Room Air 05/29/18 07:18 97.5 18 127/54 (78) 97.5 05/28/18 08:00 2.0 Labs: Laboratory Tests Test 05/29/18 06:30 Creatinine 0.9 mg/dL Estimated GFR (Cockcroft-Gault) 86.7 Imaging: CXR 05/29/18 IMPRESSION: Changes of left upper lobectomy with stable opacification of the left lung apex which may be related to postsurgical changes or pneumonia. Findings not significant changed when compared to previous exam. PE: GEN: NAD LUNGS: CTAB HEART: RRR ABD: distended, quiet NEURO/PSYCH: A & O �3 A/P: Ileus -- Keep to clears, recheck CT. WAN ELIZALDE May 29, 2018 10:56
[2018-05-29] MEDS ORDERED: BISACODYL 10 MG SUPP.RECT. PR ONE (11:00)
[2018-05-29] MEDS ORDERED: CONTRAST GIVEN. MC PRN (11:15)
[2018-05-29] MEDS ORDERED: IOHEXOL 240 MG/ML 50ML VIAL. PO ONE (11:15)
--- NOTE | 2018-05-29 11:23 | PDOC ---
PULMONARY PROGRESS NOTES Subjective no soa Vitals Vital Signs Date Time Temp Pulse Resp B/P (MAP) Pulse Ox O2 Delivery O2 Flow Rate FiO2 05/29/18 08:43 85 05/29/18 07:23 93 Room Air 05/29/18 07:18 97.5 18 127/54 (78) 97.5 05/28/18 08:00 2.0 General: Alert, No acute distress Lungs: Other (decrease left) Cardiovascular: S1, S2 Abdomen: Soft, Other (DISTENDED) Neuro Exam: Alert Extremities: Other (EDEMA) Skin: Warm Labs Laboratory Tests Test 05/27/18 15:00 05/29/18 06:30 Sodium Level 136 mmol/L (136-145) Potassium Level 3.8 mmol/L (3.5-5.1) Chloride Level 104 mmol/L (98-107) Carbon Dioxide Level 25 mmol/L (21-32) Anion Gap 7 (6-14) Blood Urea Nitrogen 21 mg/dL (8-26) Creatinine 0.9 mg/dL (0.7-1.3) 0.9 mg/dL (0.7-1.3) Estimated GFR (Cockcroft-Gault) 86.7 86.7 BUN/Creatinine Ratio 23 (6-20) Glucose Level 105 mg/dL (70-99) Calcium Level 7.9 mg/dL (8.5-10.1) Total Bilirubin 0.7 mg/dL (0.2-1.0) Aspartate Amino Transf (AST/SGOT) 19 U/L (15-37) Alanine Aminotransferase (ALT/SGPT) 18 U/L (16-63) Alkaline Phosphatase 164 U/L (46-116) Total Protein 5.0 g/dL (6.4-8.2) Albumin 1.6 g/dL (3.4-5.0) Albumin/Globulin Ratio 0.5 (1.0-1.7) Laboratory Tests Test 05/29/18 06:30 Creatinine 0.9 mg/dL (0.7-1.3) Estimated GFR (Cockcroft-Gault) 86.7 Medications Active Scripts Medications Dose Route/Sig Max Daily Dose Days Date Category Dose Instructions Eliquis (Apixaban) 5 Mg Tablet 5 Mg PO BID 12/05/17 Reported Resume tomomorrow 04/05 Amlodipine Besylate 10 Mg Tablet 10 Mg PO DAILY 12/01/17 Reported Lisinopril-Hctz 20-12.5 Mg Tab (Lisinopril/Hydrochlorothiazide) 1 Each Tablet 1 Tab PO DAILY 12/01/17 Reported Allopurinol 100 Mg Tablet 100 Mg PO BID 12/01/17 Reported Comments CXR 05/29 NO SIG CHANGE IMPROVED AERATION LEFT LUNG Impression . IMPRESSION: 1. 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 Status post left posterior lateral thoracotomy, left upper lobectomy, mediastinal lymphadenopathy. 3. Tobacco dependence, in remission, quit 14 years ago. 4. 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 5. HYPERCAPNIA, resolved 6 METABOLIC ENCEPHALOPATHY , Resolved 7. SUBCUTANEOUS EMPHYSEMA, improved 8. PSEUDOOBSTRUCTION COLON S/P COLONOSCOPY FOR DECOMPRESSION/ improving Diagnosis: A. Lung lobe, left upper lobectomy: - ADENOSQUAMOUS CARCINOMA, INVASIVE, MODERATELY TO POORLY DIFFERENTIATED, FORMING A CAVITARY LUNG MASS MEASURING 6.9 CM IN GREATEST DIMENSION. SEE SYNOPTIC REPORT. - METASTATIC ADENOCARCINOMA INVOLVING ONE OF FOUR PERIBRONCHIAL LYMPH NODES (1/4). - Focal tumor invasion of visceral pleura. - Focal tumor vascular invasion within neoplasm. - Bronchial margin of resection negative for tumor. - Pulmonary vascular margins of resection negative for tumor. - Obstructive lipoid pneumonia of lung, focal. . B. Segments of lymph node and fibroadipose tissue, level 9 mediastinal lymph node: - Negative for tumor. . C. Segments of lymph node and fibroadipose tissue, level 10 mediastinal lymph node: - METASTATIC ADENOCARCINOMA. . D. Segment of lymph node and fibroadipose tissue, level 6 mediastinal lymph node: - METASTATIC ADENOCARCINOMA. . E. Segments of lymph node and fibroadipose tissue, level 5 mediastinal lymph node: - Negative for tumor. . F. Segments of lymph node and fibroadipose tissue, level 11 mediastinal lymph node: - Negative for tumor. Plan . PULMONARY STATUS IMPROVING INCREASE PT ADVANCE ORAL DIET PER GI/ CT ABD TODAY CONSULT ONCOLOGY/WILL NEED ADJUVANT CHEMO IN FUTURE PRN BIAPAP SLEEP STUDY OP CHEST TUBE D/C 2/3 RE-STARTED ELIQUIS OFF NARCOTICS FOLLOW BC / ABX PER ID D/W RN/ MATT HALL MD May 29, 2018 11:23
[2018-05-29 11:25] VITALS: BP 124/56
--- NOTE | 2018-05-29 12:54 | RAD ---
Examination: CT of the abdomen pelvis without IV contrast. HISTORY: History follow-up colonic ileus. COMPARISON: 05/24/2018 TECHNIQUE: Axial CT images of the abdomen pelvis were performed without IV contrast. Oral contrast was used.: Sagittal reformats are performed Exposure: One or more of the following individualized dose reduction techniques were utilized for this examination: 1. Automated exposure control 2. Adjustment of the mA and/or kV according to patient size 3. Use of iterative reconstruction technique FINDINGS: Small bilateral pleural effusions. No evidence of free air identified in the abdomen. There is some soft tissue air identified in the left lower chest wall extending into the anterior abdominal wall likely soft tissue emphysema similar to prior exam. The evaluation of the solid organs is limited lack of IV contrast. The visualized noncontrasted liver, spleen, adrenals grossly appears unremarkable. The gallbladder is mildly distended. The stomach is mildly distended The visualized pancreas grossly appears unremarkable. The small bowel is minimally distended with fluid There is moderate distention of the cecum, ascending colon and the transverse colon with air and fluid within probably due to colonic ileus slightly improved compared to prior exam. Foci of gas identified in the dependent portion of the cecum inferior to the fluid level on probably stool gas within the colon and less likely pneumatosis. There is mild fat stranding identified in the right lower quadrant of the abdomen No evidence of intrarenal collecting system calculi or hydronephrosis The appendix is not identified. Urinary bladder is mildly distended Tiny focus of air identified in the urinary bladder could be due to recent instrumentation Hardware identified in the right femur similar to prior exam Moderate degenerative changes lower lumbar spine. Mild anasarca. IMPRESSION: 1. Air and fluid distention of the colon probably colonic ileus again identified and appear slightly improved compared to prior exam. Foci of gas identified in the dependent portion of the cecum inferior to the fluid level probably gas within the lumen colon posterior against the colonic wall and very less likely pneumatosis. 2. Soft tissue air identified in the lower chest wall and in the left abdominal wall probably due to recent thoracotomy changes. 3. Mild fat stranding identified along the right paracolic gutter similar to prior exam. 3. Small bilateral pleural effusions Electronically signed by: Abilio Silveira MD (05/29/2018 12:49 PM) [facility]
[2018-05-29] MEDS ORDERED: NEOSTIGMINE 10 MG/10 ML VIAL. IV ONE (14:15)
[2018-05-29 15:25] VITALS: BP 134/54
--- NOTE | 2018-05-29 17:33 | PDOC ---
Provider Note Provider Note Reviewed CT abdomen. Persistent cecal dilatation approx 9cm now (improved since last CT), transverse colon also dilated, but decompressed left colon and rectum. Possible transition point at the splenic flexure. This appears to be consistent with a partial large bowel obstruction rather than Chinyere�s syndrome. Will talk to GI and general surgery about treatment approach. Will also obtain KUB tomorrow morning to assess the progression of oral contrast, that was given today for CT, through the bowel. May need barium enema to evaluate for possible pathology of splenic flexure. NAMRATA WYATT MD May 29, 2018 17:33
[2018-05-29 19:00] VITALS: BP 144/58
[2018-05-29 23:00] VITALS: BP 158/62
[2018-05-30 03:00] VITALS: BP 157/63
[2018-05-30 03:36] LABS: VANC TR 19.3 mcg/mL (10.0-20.0)
[2018-05-30] MEDS: VANCOMYCIN 2 GM in IV NORMAL SALINE 500ML BAG 500 ML IV SCH (03:59)
[2018-05-30] MEDS: VANCOMYCIN PER PHARMACY MC PRN (04:10)
--- NOTE | 2018-05-30 04:11 | NUR ---
Pharmacy Vancomycin Dosing Note S: Consulted to monitor and dose vancomycin started 05/28/18. O: RASHID MCMAHAN is a 58 year old M with Bacteremia . Other Antibiotics: LABS: Last BUN: 21 Last Creatinine: 0.9 Creatinine Clearance: crcl>100 mL/min Last WBC: 8.8 Last Platelets: 230 Tmax (past 24 hours): 98.1 Microbiology: 05/24 BLOOD CULTURE: GPC in clusters 2/3 BLOOD CULTURE: NGTD (AFTER 2 DAYS) I/O: Drug Levels: Last Trough level: 19.3 on 05/30/18 at 0315 Last dose given 05/29/18 at 1550 Vancomycin Dosing: Dosing Weight: Actual Target Trough: 15-20 A: Based on: Trough, Updated Actual Wt and CrCl P: 1. 05/30/18 0400 Continue Vancomycin 2000 mg IV q12h 2. Follow up Trough level in 5 to 7 days as needed 3. Pharmacy will continue to monitor, follow and adjust therapy as needed. CHRISTINE MILLS RPH, 05/30/18 0411 Signed: 05/30/18 at 0412 by CHRISTINE MILLS RPH PHA
[2018-05-30 07:15] VITALS: BP 167/64
[2018-05-30 07:48] LABS: CREATININE 0.9 mg/dL (0.7-1.3); GFR 86.7; POTASSIUM 3.5 mmol/L (3.5-5.1)
[2018-05-30 08:04] LABS: BASO # 0.1 x10^3/uL (0.0-0.2); BASO % 1 % (0-3); EOS # 0.1 x10^3/uL (0.0-0.7); EOS % 1 % (0-3); HEMATOCRIT 29.4 % (39.0-53.0); HEMOGLOBIN 9.6 g/dL (13.0-17.5); LYMPH # 1.4 x10^3/uL (1.0-4.8); LYMPH % 13 % (24-48); MEAN CORPUSCULAR HEMOGLOBIN 28 pg (25-35); MEAN CORPUSCULAR HGB CONC 33 g/dL (31-37); MEAN CORPUSCULAR VOLUME 84 fL (79-100); MONO # 1.2 x10^3/uL (0.0-1.1); MONO % 11 % (0-9); NEUT # 8.2 x10^3uL (1.8-7.7); NEUT % 75 % (31-73); PLATELET COUNT 395 x10^3/uL (140-400); RED BLOOD COUNT 3.49 x10^6/uL (4.30-5.70)
[2018-05-30] MEDS: IPRATRPIUM/ALBUTEROL 0.5/2.5MG 3 ML NEBU. NEB SCH ×4 (08:13→20:36)
--- NOTE | 2018-05-30 08:18 | PDOC ---
Progress Note Subjective Subjective No change in abdo distention. Mild RLQ tendernes. Yesterday's contrast has passed on this morning's KUB. Small BM, flatus. No nausea or vomiting. Normotensive, SR, afebrile. CXR shows reduced left lung aeration.Blood cultures show coag negative staph. ROS ROS No nausea No vomiting No pain No rash Vital Sign Vital Signs Vital Signs Date Time Temp Pulse Resp B/P (MAP) Pulse Ox O2 Delivery O2 Flow Rate FiO2 05/30/18 07:50 Room Air 05/30/18 07:15 97.8 82 20 167/64 (98) 95 97.8 Physical Exam PHYSICAL EXAM GENERAL: Alert and oriented gentleman, not in any distress. VITAL SIGNS: Stable, afebrile. HEENT: NAD. NECK: Supple, no JVP, no lymphadenopathy. LUNGS: Clear. Decreased breath sounds on the left. The incisions are unremarkable for any infection. ABDOMEN: Distended, tympanic. No tenderness, no rebound or guarding, no organomegaly appreciated. EXTREMITIES: No edema or cyanosis. SKIN: Unremarkable. NEUROLOGIC: The patient is neurologically alert, awake and appropriate. No focal neurologic deficit. Labs Lab Laboratory Tests Test 05/30/18 03:15 Sodium Level 142 mmol/L (136-145) Potassium Level 3.5 mmol/L (3.5-5.1) Chloride Level 107 mmol/L (98-107) Carbon Dioxide Level 25 mmol/L (21-32) Anion Gap 10 (6-14) Blood Urea Nitrogen 9 mg/dL (8-26) Creatinine 0.9 mg/dL (0.7-1.3) Estimated GFR (Cockcroft-Gault) 86.7 Glucose Level 100 mg/dL (70-99) Calcium Level 8.0 mg/dL (8.5-10.1) Vancomycin Level Trough 19.3 mcg/mL (10.0-20.0) Vancomycin Last Dose Date [id number] Vancomycin Last Dose Time 1600 Objective Assessment POD#7, s/p left upper lobectomy and mediastinal lymphadenectomy CT shows possible partial large bowel obstruction. No change in abdo distention. Mild RLQ tendernes. Yesterday's contrast has passed on this morning' s KUB. Small BM, flatus. No nausea or vomiting. Normotensive, SR, afebrile. CXR shows reduced left lung aeration.Blood cultures show coag negative staph. 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 Will start adjuvant chemotherapy with Cisplatin and Navelbine in 4 weeks Plan Plan of Care Appreciate Gen surgery and GI input on further treatment May need outpatient colonoscopy or inpatient BE to determine possible pathology in splenic flexure ID to determine if further abx needed for coag negative staph Needs more aggressive incentive spirometry and pulm toilet for left lung volum loss D/c home once GI issues resolve NAMRATA WYATT MD May 30, 2018 08:18
--- NOTE | 2018-05-30 08:27 | RAD ---
KUB History: Possible colonic obstruction, history of colonic ileus Comparison: CT exam 05/29/2018 Findings: 2 supine AP portable views of the abdomen are submitted. There is some residual mild oral contrast now in the rectum. There is some gas dilatation of the large and small bowel. There is again intramedullary bon of the right femur, not fully included. Exam is insufficient for the evaluation for free air. There is inferior lumbar degenerative disc disease. There is again gas in the left lateral soft tissues of the inferior chest. Impression: 1. There is now some oral contrast in the rectum. There is again some gas distention of the colon and small bowel as may be related to ileus. 2. There is again gas in the inferior left lateral chest wall. Electronically signed by: Shabbir Cintron MD (05/30/2018 8:22 AM) [facility]
--- NOTE | 2018-05-30 08:30 | RAD ---
PORTABLE CHEST 1V History: Status post left upper lobectomy Comparison: 05/29/2018 Findings: There is again right upper extremity PICC with the tip near the caval atrial junction. There is again gas in the inferior lateral left chest wall. No significant pneumothorax is identified. There is again obscuration of left hemidiaphragm likely at least small left pleural effusion, adjacent airspace opacity and interstitial opacity similar. There is similar degree of airspace opacity of the superior left hemithorax. There are clips in the left perihilar region. Impression: 1. Radiographic findings are very similar, likely small left pleural effusion with adjacent atelectasis or infiltrate and stable opacity of the left suprahilar region. There is again gas of the inferior lateral left chest wall. Electronically signed by: Shabbir Cintron MD (05/30/2018 8:26 AM) [facility]
--- NOTE | 2018-05-30 08:57 | PDOC ---
Infectious Disease Note Subjective Subjective No change in abdo distention. Mild RLQ tendernes. ROS ROS no n/v/d/sob/fever Vital Sign Vital Signs Vital Signs Date Time Temp Pulse Resp B/P (MAP) Pulse Ox O2 Delivery O2 Flow Rate FiO2 05/30/18 08:13 97 Room Air 05/30/18 07:15 97.8 82 20 167/64 (98) 97.8 Physical Exam PHYSICAL EXAM GENERAL: Alert and oriented gentleman, not in any distress. VITAL SIGNS: Stable, afebrile. HEENT: NAD. NECK: Supple, no JVP, no lymphadenopathy. LUNGS: Clear. Decreased breath sounds on the left. The incisions are unremarkable for any infection. ABDOMEN: Distended, tympanic. No tenderness, no rebound or guarding, no organomegaly appreciated. EXTREMITIES: No edema or cyanosis. SKIN: Unremarkable. NEUROLOGIC: The patient is neurologically alert, awake and appropriate. No focal neurologic deficit. Labs Lab Laboratory Tests Test 05/30/18 03:15 White Blood Count 11.0 x10^3/uL (4.0-11.0) Red Blood Count 3.49 x10^6/uL (4.30-5.70) Hemoglobin 9.6 g/dL (13.0-17.5) Hematocrit 29.4 % (39.0-53.0) Mean Corpuscular Volume 84 fL (79-100) Mean Corpuscular Hemoglobin 28 pg (25-35) Mean Corpuscular Hemoglobin Concent 33 g/dL (31-37) Red Cell Distribution Width 17.0 % (11.5-14.5) Platelet Count 395 x10^3/uL (140-400) Neutrophils (%) (Auto) 75 % (31-73) Lymphocytes (%) (Auto) 13 % (24-48) Monocytes (%) (Auto) 11 % (0-9) Eosinophils (%) (Auto) 1 % (0-3) Basophils (%) (Auto) 1 % (0-3) Neutrophils # (Auto) 8.2 x10^3uL (1.8-7.7) Lymphocytes # (Auto) 1.4 x10^3/uL (1.0-4.8) Monocytes # (Auto) 1.2 x10^3/uL (0.0-1.1) Eosinophils # (Auto) 0.1 x10^3/uL (0.0-0.7) Basophils # (Auto) 0.1 x10^3/uL (0.0-0.2) Sodium Level 142 mmol/L (136-145) Potassium Level 3.5 mmol/L (3.5-5.1) Chloride Level 107 mmol/L (98-107) Carbon Dioxide Level 25 mmol/L (21-32) Anion Gap 10 (6-14) Blood Urea Nitrogen 9 mg/dL (8-26) Creatinine 0.9 mg/dL (0.7-1.3) Estimated GFR (Cockcroft-Gault) 86.7 Glucose Level 100 mg/dL (70-99) Calcium Level 8.0 mg/dL (8.5-10.1) Vancomycin Level Trough 19.3 mcg/mL (10.0-20.0) Vancomycin Last Dose Date [id number] Vancomycin Last Dose Time 1600 Micro BC + G + cocci Objective Assessment BC + with G + cocci , coag neg staph Lung ca s/p lobectomy Ileus Colon polyp Fever Leukocytosis Plan Plan of Care d/c iv vancomycin no need for any antibiotics ok to d/c from ID stand point d/w TOMAS LOWERY MD May 30, 2018 08:57
[2018-05-30] MEDS: SENNOSIDES/DOCUSATE 8.6/50MG TABLET. PO SCH ×2 (09:03→20:20)
[2018-05-30] MEDS: LACTOBACILLUS RHAMNOSUS GG 1 CAPSULE. PO SCH ×2 (09:03→20:21)
[2018-05-30] MEDS: GABAPENTIN 300 MG CAPSULE. PO SCH ×3 (09:03→20:21)
[2018-05-30] MEDS: DOCUSATE SODIUM 100 MG CAPSULE. PO SCH ×2 (09:03→20:20)
[2018-05-30] MEDS: APIXABAN 5 MG TABLET. PO SCH ×2 (09:03→20:20)
[2018-05-30] MEDS: METOPROLOL TART IMMED RELEASE 25 MG TABLET. PO SCH ×2 (09:04→20:21)
[2018-05-30] MEDS: FAMOTIDINE 20 MG/2 ML VIAL IVP SCH ×2 (09:04→20:22)
[2018-05-30 11:25] VITALS: BP 124/61
--- NOTE | 2018-05-30 12:20 | PDOC ---
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 ROS - no CP Objective Objective Vital Signs Date Time Temp Pulse Resp B/P (MAP) Pulse Ox O2 Delivery O2 Flow Rate FiO2 05/30/18 11:59 Room Air 05/30/18 11:25 98.1 70 18 124/61 (82) 94 98.1 05/28/18 08:00 2.0 Intake and Output 05/30/18 07:01 Intake Total 2520 ml Output Total 500 ml Balance 2020 ml Intake Oral 1020 ml IV Total 1500 ml Output Urine Total 500 ml # Voids 1 # Bowel Movements 1 Physical Exam Heart: Normal S1, Normal S2 General: Alert, Oriented X3 Lungs: Clear to auscultation Neuro: Normal speech Psych/Mental Status: Mental status NL Assessment Assessment IMPRESSION AND PLAN: 1. 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 Pathology revealed a T3N2M0 stage 3B lung cancer. I would recommend adjuvant chemotherapy with cisplatin and Navelbine to start in about 4 weeks followed by immunotherapy with Imfinzi. He will follow up with his primary oncologist, Dr. Delgadillo in about 3-4 weeks. I discussed in detail with the patient and his . I also discussed with Dr. Kaiden Nogueira and Dr Bell. I also reviewed his case at multidisciplinary tumor conference. 2. Pseudoobstruction of the colon, status post colonoscopy for decompression. He is improving. I d/w DR Rose, he will start him on clear liquids. 3. Anemia. His hemoglobin was normal preoperatively. Hence, the drop in the hemoglobin is consistent with surgery. Hemoglobin 9.1 on 05/26/2018. Continue to monitor p.r.n. Comment Review of Relevant I have reviewed the following items florencio (where applicable) has been applied. Labs Laboratory Tests Test 05/29/18 06:30 05/30/18 03:15 Creatinine 0.9 mg/dL (0.7-1.3) 0.9 mg/dL (0.7-1.3) Estimated GFR (Cockcroft-Gault) 86.7 86.7 White Blood Count 11.0 x10^3/uL (4.0-11.0) Red Blood Count 3.49 x10^6/uL (4.30-5.70) Hemoglobin 9.6 g/dL (13.0-17.5) Hematocrit 29.4 % (39.0-53.0) Mean Corpuscular Volume 84 fL (79-100) Mean Corpuscular Hemoglobin 28 pg (25-35) Mean Corpuscular Hemoglobin Concent 33 g/dL (31-37) Red Cell Distribution Width 17.0 % (11.5-14.5) Platelet Count 395 x10^3/uL (140-400) Neutrophils (%) (Auto) 75 % (31-73) Lymphocytes (%) (Auto) 13 % (24-48) Monocytes (%) (Auto) 11 % (0-9) Eosinophils (%) (Auto) 1 % (0-3) Basophils (%) (Auto) 1 % (0-3) Neutrophils # (Auto) 8.2 x10^3uL (1.8-7.7) Lymphocytes # (Auto) 1.4 x10^3/uL (1.0-4.8) Monocytes # (Auto) 1.2 x10^3/uL (0.0-1.1) Eosinophils # (Auto) 0.1 x10^3/uL (0.0-0.7) Basophils # (Auto) 0.1 x10^3/uL (0.0-0.2) Sodium Level 142 mmol/L (136-145) Potassium Level 3.5 mmol/L (3.5-5.1) Chloride Level 107 mmol/L (98-107) Carbon Dioxide Level 25 mmol/L (21-32) Anion Gap 10 (6-14) Blood Urea Nitrogen 9 mg/dL (8-26) Glucose Level 100 mg/dL (70-99) Calcium Level 8.0 mg/dL (8.5-10.1) Vancomycin Level Trough 19.3 mcg/mL (10.0-20.0) Vancomycin Last Dose Date [id number] Vancomycin Last Dose Time 1600 Laboratory Tests Test 05/30/18 03:15 White Blood Count 11.0 x10^3/uL (4.0-11.0) Red Blood Count 3.49 x10^6/uL (4.30-5.70) Hemoglobin 9.6 g/dL (13.0-17.5) Hematocrit 29.4 % (39.0-53.0) Mean Corpuscular Volume 84 fL (79-100) Mean Corpuscular Hemoglobin 28 pg (25-35) Mean Corpuscular Hemoglobin Concent 33 g/dL (31-37) Red Cell Distribution Width 17.0 % (11.5-14.5) Platelet Count 395 x10^3/uL (140-400) Neutrophils (%) (Auto) 75 % (31-73) Lymphocytes (%) (Auto) 13 % (24-48) Monocytes (%) (Auto) 11 % (0-9) Eosinophils (%) (Auto) 1 % (0-3) Basophils (%) (Auto) 1 % (0-3) Neutrophils # (Auto) 8.2 x10^3uL (1.8-7.7) Lymphocytes # (Auto) 1.4 x10^3/uL (1.0-4.8) Monocytes # (Auto) 1.2 x10^3/uL (0.0-1.1) Eosinophils # (Auto) 0.1 x10^3/uL (0.0-0.7) Basophils # (Auto) 0.1 x10^3/uL (0.0-0.2) Sodium Level 142 mmol/L (136-145) Potassium Level 3.5 mmol/L (3.5-5.1) Chloride Level 107 mmol/L (98-107) Carbon Dioxide Level 25 mmol/L (21-32) Anion Gap 10 (6-14) Blood Urea Nitrogen 9 mg/dL (8-26) Creatinine 0.9 mg/dL (0.7-1.3) Estimated GFR (Cockcroft-Gault) 86.7 Glucose Level 100 mg/dL (70-99) Calcium Level 8.0 mg/dL (8.5-10.1) Vancomycin Level Trough 19.3 mcg/mL (10.0-20.0) Vancomycin Last Dose Date [id number] Vancomycin Last Dose Time 1600 Microbiology 05/26/18 Blood Culture - Preliminary, Resulted NO GROWTH AFTER 3 DAYS Medications Current Medications Ondansetron HCl (Zofran) 4 mg PRN Q6HRS PRN IV NAUSEA/VOMITING; Start 05/22/18 at 07:00; Stop 05/22/18 at 14:47; Status DC Fentanyl Citrate (Fentanyl 2ml Vial) 25 mcg PRN Q5MIN PRN IV MILD PAIN; Start 05/22/18 at 07:00; Stop 05/23/18 at 06:59; Status DC Fentanyl Citrate (Fentanyl 2ml Vial) 50 mcg PRN Q5MIN PRN IV MODERATE TO SEVERE PAIN; Start 05/22/18 at 07:00; Stop 05/23/18 at 06:59; Status DC Morphine Sulfate (Morphine Sulfate) 1 mg PRN Q10MIN PRN IV SEVERE PAIN; Start 05/22/18 at 07:00; Stop 05/23/18 at 06:59; Status DC Ringer's Solution 1,000 ml @ 30 mls/hr Q24H IV Last administered on 05/22/18at 08:00; Start 05/22/18 at 07:00; Stop 05/22/18 at 18:59; Status DC Lidocaine HCl (Xylocaine-Mpf 1% 2ml Vial) 2 ml PRN 1X PRN ID IV START; Start at 07:00; Stop 05/23/18 at 06:59; Status DC Hydromorphone HCl (Dilaudid) 0.5 mg PRN Q10MIN PRN IV SEV PAIN, Second choice; Start 05/22/18 at 07:00; Stop 05/23/18 at 06:59; Status DC Prochlorperazine Edisylate (Compazine) 5 mg PACU PRN PRN IV NAUSEA, MRX1; Start 05/22/18 at 07:00; Stop 05/23/18 at 06:59; Status DC Cefazolin Sodium 1 gm/Sodium Chloride 500 ml @ 500 mls/hr 1X ONCE IRR Last administered on 05/22/18at 09:56; Start 05/22/18 at 06:00; Stop 05/22/18 at 06:59 ; Status DC Cefazolin Sodium/ Dextrose 50 ml @ 100 mls/hr 1X PREOP PRN IV PRIOR TO PROCEDURE; Start 05/22/18 at 06:00; Stop 05/22/18 at 18:00; Status DC Cellulose (Surgicel Hemostat 4x8) 1 each [facility]-MED ONCE .ROUTE Last administered on 05/22/18at 13:24; Start 05/22/18 at 07:38; Stop 05/22/18 at 07:41; Status DC Cellulose (Surgicel Hemostat 4x8) 1 each STK-MED ONCE .ROUTE ; Start 05/22/18 at 07:38; Stop 05/22/18 at 07:41; Status DC Dexamethasone Sodium Phosphate (Decadron) 20 mg STK-MED ONCE .ROUTE ; Start at 08:41; Stop 05/22/18 at 08:43; Status DC Lidocaine HCl (Lidocaine Pf 2% Vial) 5 ml STK-MED ONCE .ROUTE ; Start 05/22/18 at 08:41; Stop 05/22/18 at 08:43; Status DC Propofol 20 ml @ As Directed STK-MED ONCE IV ; Start 05/22/18 at 08:41; Stop at 08:44; Status DC Ondansetron HCl (Zofran) 4 mg STK-MED ONCE .ROUTE ; Start 05/22/18 at 08:41; Stop 05/22/18 at 08:44; Status DC Rocuronium [place] (Zemuron) 100 mg STK-MED ONCE .ROUTE ; Start 05/22/18 at 08: 41; Stop 05/22/18 at 08:44; Status DC Midazolam HCl (Versed) 2 mg STK-MED ONCE .ROUTE ; Start 05/22/18 at 08:42; Stop 05/22/18 at 08:44; Status DC Fentanyl Citrate (Fentanyl 5ml Vial) 250 mcg STK-MED ONCE .ROUTE ; Start at 08:46; Stop 05/22/18 at 08:48; Status DC Ephedrine Sulfate (ePHEDrine PF IN SALINE SYRINGE) 50 mg STK-MED ONCE IV ; Start 05/22/18 at 08:47; Stop 05/22/18 at 08:48; Status DC Glycopyrrolate (Robinul) 1 mg STK-MED ONCE .ROUTE ; Start 05/22/18 at 08:47; Stop 05/22/18 at 08:49; Status DC Sodium Chloride 35 ml/Fentanyl Citrate 250 mcg/ Ropivacaine 10 ml/ Epidural Dosage Infused (Pha) 50 ml @ 0 mls/hr CONT PRN EPID SEE PROTOCOL TABLE Last administered on 05/24/18at 10:19; Start 05/22/18 at 09:30; Stop 05/26/18 at 13:09; Status DC Succinylcholine Chloride (Anectine) 200 mg STK-MED ONCE .ROUTE ; Start 05/22/18 at 09:45; Stop 05/22/18 at 09:47; Status DC Bupivacaine HCl (Sensorcaine Mpf 0.5%) 30 ml STK-MED ONCE .ROUTE ; Start at 10:53; Stop 05/22/18 at 10:56; Status DC Bupivacaine HCl (Sensorcaine-Mpf 0.25%) 10 ml STK-MED ONCE .ROUTE ; Start at 10:54; Stop 05/22/18 at 10:56; Status DC Rocuronium [place] (Zemuron) 100 mg STK-MED ONCE .ROUTE ; Start 05/22/18 at 11: 42; Stop 05/22/18 at 11:45; Status DC Propofol 20 ml @ As Directed STK-MED ONCE IV ; Start 05/22/18 at 11:43; Stop at 11:45; Status DC Phenylephrine HCl (PHENYLEPHRINE in 0.9% NACL PF) 1 mg STK-MED ONCE IV ; Start 05/22/18 at 11:43; Stop 05/22/18 at 11:45; Status DC Phenylephrine HCl (PHENYLEPHRINE in 0.9% NACL PF) 1 mg STK-MED ONCE IV ; Start 05/22/18 at 11:43; Stop 05/22/18 at 11:45; Status DC Cefazolin Sodium/ Dextrose (Ancef 2gm Premix) 2 gm STK-MED ONCE IV ; Start 05/22 at 08:00; Stop 05/22/18 at 13:23; Status DC Lidocaine HCl (Lidocaine Pf 2% Vial) 5 ml STK-MED ONCE .ROUTE ; Start 05/22/18 at 14:08; Stop 05/22/18 at 14:10; Status DC Propofol 100 ml @ As Directed STK-MED ONCE IV ; Start 05/22/18 at 14:36; Stop 05/22/18 at 14:38; Status DC Diphenhydramine HCl (Benadryl) 25 mg PRN Q6HRS PRN IV ITCHING; Start 05/22/18 at 14:45 Famotidine (Pepcid Vial) 20 mg BID IVP Last administered on 05/30/18 09:04; Start 05/22/18 at 21:00 Info (Icu Electrolyte Protocol) 1 ea DAILY MC Last administered on 05/27/18 09: 00; Start 05/23/18 at 09:00; Stop 05/28/18 at 09:32; Status DC Heparin Sodium (Porcine) (Heparin Sodium) 5,000 unit Q8HRS SQ Last administered on 05/28/18at 05:46; Start 05/22/18 at 22:00; Stop 05/28/18 at 09:28; Status DC Sodium Chloride (Normal Saline Flush) 3 ml QSHIFT PRN IV AFTER MEDS AND BLOOD DRAWS; Start 05/22/18 at 14:45 Oxycodone HCl (Roxicodone) 10 mg PRN Q4HRS PRN PO MODERATE PAIN, SEVERE PAIN Last administered on 05/23/18at 21:29; Start 05/22/18 at 14:45; Stop 05/28/18 at 08:57; Status DC Ketorolac Tromethamine (Toradol 15mg Vial) 15 mg PRN Q6HRS PRN IV PAIN Last administered on 05/23/18at 18:59; Start 05/22/18 at 14:45; Stop 05/24/18 at 06:31 ; Status DC Acetaminophen (Tylenol) 650 mg PRN Q6HRS PRN PO Headaches, Temp > 101.5F Last administered on 05/24/18 16:11; Start 05/22/18 at 14:45; Stop 05/28/18 at 13:41; Status DC Gabapentin (Neurontin) 600 mg Q8HRS PO Last administered on 05/23/18at 21:27; Start 05/22/18 at 22:00; Stop 05/24/18 at 11:16; Status DC Naloxone HCl (Narcan) 0.4 mg PRN Q2MIN PRN IV SEE INSTRUCTIONS Last administered on 05/24/18 04:41; Start 05/22/18 at 14:45 Morphine Sulfate (Morphine Sulfate) 2 mg PRN Q1HR PRN IV PAIN; Start 05/22/18 at 14:45; Status UNV Ondansetron HCl (Zofran) 4 mg PRN Q6HRS PRN IV NAUESA, 1ST CHOICE Last administered on 05/23/18at 14:00; Start 05/22/18 at 14:45 Prochlorperazine Edisylate (Compazine) 5 mg PRN Q6HRS PRN IV N/V, 2nd Choice, MR X1; Start 05/22/18 at 14:45 Metoclopramide HCl (Reglan Vial) 5 mg PRN Q6HRS PRN IV Nausea/Vomiting, 3rd Choice Last administered on 05/24/18at 16:30; Start 05/22/18 at 14:45 Senna/Docusate Sodium (Senna Plus) 1 tab BID PO Last administered on 05/30/18at 09:03; Start 05/22/18 at 21:00 Docusate Sodium (Colace) 100 mg BID PO Last administered on 05/30/18at 09:03; Start 05/22/18 at 21:00 Cefazolin Sodium/ Dextrose 50 ml @ 100 mls/hr Q6H IV Last administered on 05/23at 04:35; Start 05/22/18 at 16:45; Stop 05/23/18 at 05:14; Status DC Metoprolol Tartrate (Lopressor) 25 mg BID PO Last administered on 05/30/18at 09: 04; Start 05/22/18 at 21:00 Hydralazine HCl (Apresoline Inj) 25 mg PRN Q2HRS PRN IVP ELEVATED BP, SEE COMMENTS; Start 05/22/18 at 17:00 Insulin Human Regular (HumuLIN R VIAL) 10 unit 1X ONCE IV Last administered on 05/24/18at 06:39; Start 05/24/18 at 07:00; Stop 05/24/18 at 07:01; Status DC Dextrose (Dextrose 50%-Water Syringe) 25 gm 1X ONCE IV Last administered on 05/24/18at 06:41; Start 05/24/18 at 07:00; Stop 05/24/18 at 07:01; Status DC Albuterol Sulfate (Ventolin Neb Soln) 2.5 mg PRN Q4HRS PRN NEB SHORTNESS OF BREATH; Start 05/24/18 at 11:15 Sodium Chloride 1,000 ml @ 80 mls/hr [id number] IV Last administered on 05/27/18at 23:16; Start 05/24/18 at 14:30; Stop 05/28/18 at 09:28; Status DC Multivitamins 10 ml/Thiamine HCl 100 mg/Folic Acid 1 mg/Sodium Chloride 1,011.2 ml @ 80 mls/hr DAILY IV Last administered on 05/28/18at 09:31; Start 05/24/18 at 15:30; Stop 05/28/18 at 10:14; Status DC Piperacillin Sod/ Tazobactam Sod 4.5 gm/Sodium Chloride 100 ml @ 200 mls/hr Q6HRS IV Last administered on 05/28/18at 12:56; Start 05/24/18 at 18:00; Stop 05/28 at 13:59; Status DC Ketorolac Tromethamine (Toradol 15mg Vial) 15 mg PRN Q6HRS PRN IV PAIN Last administered on 05/26/18at 18:23; Start 05/24/18 at 17:15; Stop 05/29/18 at 17:14; Status DC Gabapentin (Neurontin) 600 mg TID PO Last administered on 05/30/18at 09:03; Start 05/24/18 at 21:00 Neostigmine Methylsulfate (Bloxiverz) 1.5 mg 1X ONCE IV Last administered on at 17:22; Start 05/25/18 at 17:15; Stop 05/25/18 at 17:16; Status DC Atropine Sulfate (ATROPINE 1mg SYRINGE) 1 mg PRN 1X PRN IV SYMPTOMATIC BRADYCARDIA; Start 05/25/18 at 17:15 Propofol 20 ml @ As Directed STK-MED ONCE IV ; Start 05/26/18 at 09:10; Stop 05/26 at 09:12; Status DC Propofol 0 ml @ As Directed STK-MED ONCE IV ; Start 05/26/18 at 09:10; Stop at 09:12; Status DC Propofol 20 ml @ As Directed STK-MED ONCE IV ; Start 05/26/18 at 10:57; Stop 05/26 at 11:00; Status DC Neostigmine Methylsulfate (Bloxiverz) 2 mg 1X ONCE IV Last administered on 05/26at 11:15; Start 05/26/18 at 11:15; Stop 05/26/18 at 11:16; Status DC Potassium Chloride/Water 50 ml @ 50 mls/hr 1X ONCE IV Last administered on 05/26at 17:12; Start 05/26/18 at 17:00; Stop 05/26/18 at 17:59; Status DC Potassium Chloride/Water 50 ml @ 50 mls/hr Q1H IV Last administered on at 11:12; Start 05/27/18 at 11:30; Stop 05/27/18 at 13:29; Status DC Bisacodyl (Dulcolax Supp) 10 mg PRN DAILY PRN [place] CONSTIPATION Last administered on 05/27/18 15:23; Start 05/27/18 at 14:45 Oxycodone HCl (Roxicodone) 5 mg PRN Q4HRS PRN PO MODERATE PAIN, SEVERE PAIN; Start 05/28/18 at 09:00; Stop 05/28/18 at 13:38; Status DC Bisacodyl (Dulcolax Supp) 10 mg 1X ONCE [place] Last administered on 05/28/18at 12:04 ; Start 05/28/18 at 09:00; Stop 05/28/18 at 09:06; Status DC Apixaban (Eliquis) 5 mg BID PO Last administered on 05/30/18 09:03; Start at 21:00 Info (Anti-Coagulation Monitoring By Pharmacy) 1 each PRN DAILY PRN MC SEE COMMENTS Last administered on 05/29/18at 10:28; Start 05/28/18 at 09:45 Multivitamins (Thera M Plus) 1 tab DAILY PO Last administered on 05/29/18at 08:37 ; Start 05/29/18 at 09:00 Folic Acid (Folic Acid) 1 mg DAILY PO Last administered on 05/29/18 08:37; Start 05/29/18 at 09:00 Thiamine Mononitrate (Vitamin B-1) 100 mg DAILY PO Last administered on at 08:39; Start 05/29/18 at 09:00 Lactobacillus Rhamnosus (Culturelle) 1 cap BID PO Last administered on 09:03; Start 05/28/18 at 21:00 Acetaminophen (Tylenol) 500 mg PRN Q6HRS PRN PO MILD PAIN / TEMP; Start at 13:45 Albuterol/ Ipratropium (Duoneb) 3 ml RTQID NEB Last administered on 05/30/18at 11 :59; Start 05/28/18 at 16:00 Albuterol/ Ipratropium (Duoneb) 3 ml 1X ONCE NEB Last administered on at 14:07; Start 05/28/18 at 14:00; Stop 05/28/18 at 14:01; Status DC Vancomycin HCl 1.75 gm/Sodium Chloride 500 ml @ 250 mls/hr Q12H IV ; Start 05/28 at 14:00; Status UNV Vancomycin HCl (Vanco Per Pharmacy) 1 each PRN DAILY PRN MC SEE COMMENTS Last administered on 05/30/18at 04:10; Start 05/28/18 at 14:15; Stop 05/30/18 at 09:35; Status DC Vancomycin HCl 2 gm/Sodium Chloride 500 ml @ 250 mls/hr ONCE ONCE IV Last administered on 05/28/18at 16:05; Start 05/28/18 at 14:15; Stop 05/28/18 at 16:14; Status DC Vancomycin HCl 2 gm/Sodium Chloride 500 ml @ 250 mls/hr Q12H IV Last administered on 05/30/18at 03:59; Start 05/29/18 at 04:00; Stop 05/30/18 at 08:24; Status DC Vancomycin HCl (Vancomycin Trough Level) 1 each 1X ONCE MC Last administered on 05/30/18at 03:30; Start 05/30/18 at 03:30; Stop 05/30/18 at 03:31; Status DC Bisacodyl (Dulcolax Supp) 10 mg 1X ONCE [place] ; Start 05/29/18 at 11:00; Stop at 11:01; Status DC Iohexol (Omnipaque 240 Mg/ml) 30 ml 1X ONCE PO ; Start 05/29/18 at 11:15; Stop 05/29/18 at 11:16; Status DC Info (CONTRAST GIVEN -- Rx MONITORING) 1 each PRN DAILY PRN MC SEE COMMENTS; Start 05/29/18 at 11:15; Stop 05/31/18 at 11:14 Neostigmine Methylsulfate (Bloxiverz) 2 mg 1X ONCE IV Last administered on 05/29at 15:32; Start 05/29/18 at 14:15; Stop 05/29/18 at 14:16; Status DC Active Scripts Active Reported Eliquis (Apixaban) 5 Mg Tablet 5 Mg PO BID Resume tomomorrow 04/05 Amlodipine Besylate 10 Mg Tablet 10 Mg PO DAILY Lisinopril-Hctz 20-12.5 Mg Tab (Lisinopril/Hydrochlorothiazide) 1 Each Tablet 1 Tab PO DAILY Allopurinol 100 Mg Tablet 100 Mg PO BID Vitals/I & O Vital Sign - Last 24 Hours 05/29/18 05/29/18 05/29/18 05/29/18 15:25 19:00 19:40 20:00 Temp 97.9 97.8 97.9 97.8 Pulse 72 84 Resp 18 22 B/P (MAP) 134/54 (80) 144/58 (86) Pulse Ox 97 95 96 O2 Delivery Room Air Room Air Room Air Room Air 05/29/18 05/29/18 05/30/18 05/30/18 21:00 23:00 03:00 07:15 Temp 98.0 98.0 97.8 98.0 98.0 97.8 Pulse 84 78 74 82 Resp 22 22 20 B/P (MAP) 144/58 158/62 (94) 157/63 (94) 167/64 (98) Pulse Ox 95 94 95 O2 Delivery Room Air Room Air Room Air 05/30/18 05/30/18 05/30/18 05/30/18 07:50 08:13 09:04 11:25 Temp 98.1 98.1 Pulse 85 70 Resp 18 B/P (MAP) 124/61 (82) Pulse Ox 97 94 O2 Delivery Room Air Room Air Room Air 05/30/18 11:59 O2 Delivery Room Air Intake and Output 05/29/18 05/29/18 05/30/18 15:01 23:01 07:01 Intake Total 1520 ml 500 ml 500 ml Output Total 500 ml Balance 1020 ml 500 ml 500 ml BAHMAN MARINELLI MD May 30, 2018 12:20
--- NOTE | 2018-05-30 12:53 | PDOC ---
G I PROGRESS NOTE Subjective "Great" results from the neostigmine yesterday. Multiple stools and flatus. Would like more to eat. Objective Per staff, audible borborygmi 8 minutes into the 10 neostigmine push. Physical Exam Lungs clear anteriorly RRR Abdomen definitely softer, though still some distended. NT. More normal bowel sounds heard. Review of Relevant I have reviewed the following items florencio (where applicable) has been applied. Labs Laboratory Tests Test 05/29/18 06:30 05/30/18 03:15 Creatinine 0.9 mg/dL (0.7-1.3) 0.9 mg/dL (0.7-1.3) Estimated GFR (Cockcroft-Gault) 86.7 86.7 White Blood Count 11.0 x10^3/uL (4.0-11.0) Red Blood Count 3.49 x10^6/uL (4.30-5.70) Hemoglobin 9.6 g/dL (13.0-17.5) Hematocrit 29.4 % (39.0-53.0) Mean Corpuscular Volume 84 fL (79-100) Mean Corpuscular Hemoglobin 28 pg (25-35) Mean Corpuscular Hemoglobin Concent 33 g/dL (31-37) Red Cell Distribution Width 17.0 % (11.5-14.5) Platelet Count 395 x10^3/uL (140-400) Neutrophils (%) (Auto) 75 % (31-73) Lymphocytes (%) (Auto) 13 % (24-48) Monocytes (%) (Auto) 11 % (0-9) Eosinophils (%) (Auto) 1 % (0-3) Basophils (%) (Auto) 1 % (0-3) Neutrophils # (Auto) 8.2 x10^3uL (1.8-7.7) Lymphocytes # (Auto) 1.4 x10^3/uL (1.0-4.8) Monocytes # (Auto) 1.2 x10^3/uL (0.0-1.1) Eosinophils # (Auto) 0.1 x10^3/uL (0.0-0.7) Basophils # (Auto) 0.1 x10^3/uL (0.0-0.2) Sodium Level 142 mmol/L (136-145) Potassium Level 3.5 mmol/L (3.5-5.1) Chloride Level 107 mmol/L (98-107) Carbon Dioxide Level 25 mmol/L (21-32) Anion Gap 10 (6-14) Blood Urea Nitrogen 9 mg/dL (8-26) Glucose Level 100 mg/dL (70-99) Calcium Level 8.0 mg/dL (8.5-10.1) Vancomycin Level Trough 19.3 mcg/mL (10.0-20.0) Vancomycin Last Dose Date [id number] Vancomycin Last Dose Time 1600 Laboratory Tests Test 05/30/18 03:15 White Blood Count 11.0 x10^3/uL (4.0-11.0) Red Blood Count 3.49 x10^6/uL (4.30-5.70) Hemoglobin 9.6 g/dL (13.0-17.5) Hematocrit 29.4 % (39.0-53.0) Mean Corpuscular Volume 84 fL (79-100) Mean Corpuscular Hemoglobin 28 pg (25-35) Mean Corpuscular Hemoglobin Concent 33 g/dL (31-37) Red Cell Distribution Width 17.0 % (11.5-14.5) Platelet Count 395 x10^3/uL (140-400) Neutrophils (%) (Auto) 75 % (31-73) Lymphocytes (%) (Auto) 13 % (24-48) Monocytes (%) (Auto) 11 % (0-9) Eosinophils (%) (Auto) 1 % (0-3) Basophils (%) (Auto) 1 % (0-3) Neutrophils # (Auto) 8.2 x10^3uL (1.8-7.7) Lymphocytes # (Auto) 1.4 x10^3/uL (1.0-4.8) Monocytes # (Auto) 1.2 x10^3/uL (0.0-1.1) Eosinophils # (Auto) 0.1 x10^3/uL (0.0-0.7) Basophils # (Auto) 0.1 x10^3/uL (0.0-0.2) Sodium Level 142 mmol/L (136-145) Potassium Level 3.5 mmol/L (3.5-5.1) Chloride Level 107 mmol/L (98-107) Carbon Dioxide Level 25 mmol/L (21-32) Anion Gap 10 (6-14) Blood Urea Nitrogen 9 mg/dL (8-26) Creatinine 0.9 mg/dL (0.7-1.3) Estimated GFR (Cockcroft-Gault) 86.7 Glucose Level 100 mg/dL (70-99) Calcium Level 8.0 mg/dL (8.5-10.1) Vancomycin Level Trough 19.3 mcg/mL (10.0-20.0) Vancomycin Last Dose Date [id number] Vancomycin Last Dose Time 1600 Microbiology 05/26/18 Blood Culture - Preliminary, Resulted NO GROWTH AFTER 3 DAYS Vitals/I & O Vital Sign - Last 24 Hours 05/29/18 05/29/18 05/29/18 05/29/18 15:25 19:00 19:40 20:00 Temp 97.9 97.8 97.9 97.8 Pulse 72 84 Resp 18 22 B/P (MAP) 134/54 (80) 144/58 (86) Pulse Ox 97 95 96 O2 Delivery Room Air Room Air Room Air Room Air 05/29/18 05/29/18 05/30/18 05/30/18 21:00 23:00 03:00 07:15 Temp 98.0 98.0 97.8 98.0 98.0 97.8 Pulse 84 78 74 82 Resp 22 22 20 B/P (MAP) 144/58 158/62 (94) 157/63 (94) 167/64 (98) Pulse Ox 95 94 95 O2 Delivery Room Air Room Air Room Air 05/30/18 05/30/18 05/30/18 05/30/18 07:50 08:13 09:04 11:25 Temp 98.1 98.1 Pulse 85 70 Resp 18 B/P (MAP) 124/61 (82) Pulse Ox 97 94 O2 Delivery Room Air Room Air Room Air 05/30/18 11:59 O2 Delivery Room Air Intake and Output 05/29/18 05/29/18 05/30/18 15:01 23:01 07:01 Intake Total 1520 ml 500 ml 500 ml Output Total 500 ml Balance 1020 ml 500 ml 500 ml Images KUB today: Findings: 2 supine AP portable views of the abdomen are submitted. There is some residual mild oral contrast now in the rectum. There is some gas dilatation of the large and small bowel. There is again intramedullary bon of the right femur, not fully included. Exam is insufficient for the evaluation for free air. There is inferior lumbar degenerative disc disease. There is again gas in the left lateral soft tissues of the inferior chest. Impression: 1. There is now some oral contrast in the rectum. There is again some gas distention of the colon and small bowel as may be related to ileus. 2. There is again gas in the inferior left lateral chest wall. --compared to 2, doesn't look like the same susan; MUCH improved. Assessment Colonic pseudoobstruction, improved. Finally good response to suzanne. Plan of Care: Continue current Tx, Mgmt Plan of Care Note Clears today. Advance tomorrow if stays OK. LOLLY GREENBERG MD May 30, 2018 12:53
--- NOTE | 2018-05-30 13:33 | PDOC ---
PULMONARY PROGRESS NOTES Subjective no soa had BM today Vitals Vital Signs Date Time Temp Pulse Resp B/P (MAP) Pulse Ox O2 Delivery O2 Flow Rate FiO2 05/30/18 11:59 Room Air 05/30/18 11:25 98.1 70 18 124/61 (82) 94 98.1 General: Alert, No acute distress Lungs: Other (decrease left) Cardiovascular: S1, S2 Abdomen: Soft, Other (DISTENDED) Neuro Exam: Alert Extremities: Other (EDEMA) Skin: Warm Labs Laboratory Tests Test 05/29/18 06:30 05/30/18 03:15 Creatinine 0.9 mg/dL (0.7-1.3) 0.9 mg/dL (0.7-1.3) Estimated GFR (Cockcroft-Gault) 86.7 86.7 White Blood Count 11.0 x10^3/uL (4.0-11.0) Red Blood Count 3.49 x10^6/uL (4.30-5.70) Hemoglobin 9.6 g/dL (13.0-17.5) Hematocrit 29.4 % (39.0-53.0) Mean Corpuscular Volume 84 fL (79-100) Mean Corpuscular Hemoglobin 28 pg (25-35) Mean Corpuscular Hemoglobin Concent 33 g/dL (31-37) Red Cell Distribution Width 17.0 % (11.5-14.5) Platelet Count 395 x10^3/uL (140-400) Neutrophils (%) (Auto) 75 % (31-73) Lymphocytes (%) (Auto) 13 % (24-48) Monocytes (%) (Auto) 11 % (0-9) Eosinophils (%) (Auto) 1 % (0-3) Basophils (%) (Auto) 1 % (0-3) Neutrophils # (Auto) 8.2 x10^3uL (1.8-7.7) Lymphocytes # (Auto) 1.4 x10^3/uL (1.0-4.8) Monocytes # (Auto) 1.2 x10^3/uL (0.0-1.1) Eosinophils # (Auto) 0.1 x10^3/uL (0.0-0.7) Basophils # (Auto) 0.1 x10^3/uL (0.0-0.2) Sodium Level 142 mmol/L (136-145) Potassium Level 3.5 mmol/L (3.5-5.1) Chloride Level 107 mmol/L (98-107) Carbon Dioxide Level 25 mmol/L (21-32) Anion Gap 10 (6-14) Blood Urea Nitrogen 9 mg/dL (8-26) Glucose Level 100 mg/dL (70-99) Calcium Level 8.0 mg/dL (8.5-10.1) Vancomycin Level Trough 19.3 mcg/mL (10.0-20.0) Vancomycin Last Dose Date [id number] Vancomycin Last Dose Time 1600 Laboratory Tests Test 05/30/18 03:15 White Blood Count 11.0 x10^3/uL (4.0-11.0) Red Blood Count 3.49 x10^6/uL (4.30-5.70) Hemoglobin 9.6 g/dL (13.0-17.5) Hematocrit 29.4 % (39.0-53.0) Mean Corpuscular Volume 84 fL (79-100) Mean Corpuscular Hemoglobin 28 pg (25-35) Mean Corpuscular Hemoglobin Concent 33 g/dL (31-37) Red Cell Distribution Width 17.0 % (11.5-14.5) Platelet Count 395 x10^3/uL (140-400) Neutrophils (%) (Auto) 75 % (31-73) Lymphocytes (%) (Auto) 13 % (24-48) Monocytes (%) (Auto) 11 % (0-9) Eosinophils (%) (Auto) 1 % (0-3) Basophils (%) (Auto) 1 % (0-3) Neutrophils # (Auto) 8.2 x10^3uL (1.8-7.7) Lymphocytes # (Auto) 1.4 x10^3/uL (1.0-4.8) Monocytes # (Auto) 1.2 x10^3/uL (0.0-1.1) Eosinophils # (Auto) 0.1 x10^3/uL (0.0-0.7) Basophils # (Auto) 0.1 x10^3/uL (0.0-0.2) Sodium Level 142 mmol/L (136-145) Potassium Level 3.5 mmol/L (3.5-5.1) Chloride Level 107 mmol/L (98-107) Carbon Dioxide Level 25 mmol/L (21-32) Anion Gap 10 (6-14) Blood Urea Nitrogen 9 mg/dL (8-26) Creatinine 0.9 mg/dL (0.7-1.3) Estimated GFR (Cockcroft-Gault) 86.7 Glucose Level 100 mg/dL (70-99) Calcium Level 8.0 mg/dL (8.5-10.1) Vancomycin Level Trough 19.3 mcg/mL (10.0-20.0) Vancomycin Last Dose Date [id number] Vancomycin Last Dose Time 1600 Medications Active Scripts Medications Dose Route/Sig Max Daily Dose Days Date Category Dose Instructions Eliquis (Apixaban) 5 Mg Tablet 5 Mg PO BID 12/05/17 Reported Resume tomomorrow 04/05 Amlodipine Besylate 10 Mg Tablet 10 Mg PO DAILY 12/01/17 Reported Lisinopril-Hctz 20-12.5 Mg Tab (Lisinopril/Hydrochlorothiazide) 1 Each Tablet 1 Tab PO DAILY 12/01/17 Reported Allopurinol 100 Mg Tablet 100 Mg PO BID 12/01/17 Reported Comments CXR 05/30 MILDLY DECREASE AERATION LEFT LUNG Impression . IMPRESSION: 1. 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 Status post left posterior lateral thoracotomy, left upper lobectomy, mediastinal lymphadenopathy. 3. Tobacco dependence, in remission, quit 14 years ago. 4. 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 5. HYPERCAPNIA, resolved 6 METABOLIC ENCEPHALOPATHY , Resolved 7. SUBCUTANEOUS EMPHYSEMA, improved 8. PSEUDOOBSTRUCTION COLON S/P COLONOSCOPY FOR DECOMPRESSION/ improving Diagnosis: A. Lung lobe, left upper lobectomy: - ADENOSQUAMOUS CARCINOMA, INVASIVE, MODERATELY TO POORLY DIFFERENTIATED, FORMING A CAVITARY LUNG MASS MEASURING 6.9 CM IN GREATEST DIMENSION. SEE SYNOPTIC REPORT. - METASTATIC ADENOCARCINOMA INVOLVING ONE OF FOUR PERIBRONCHIAL LYMPH NODES (04/26). - Focal tumor invasion of visceral pleura. - Focal tumor vascular invasion within neoplasm. - Bronchial margin of resection negative for tumor. - Pulmonary vascular margins of resection negative for tumor. - Obstructive lipoid pneumonia of lung, focal. . B. Segments of lymph node and fibroadipose tissue, level 9 mediastinal lymph node: - Negative for tumor. . C. Segments of lymph node and fibroadipose tissue, level 10 mediastinal lymph node: - METASTATIC ADENOCARCINOMA. . D. Segment of lymph node and fibroadipose tissue, level 6 mediastinal lymph node: - METASTATIC ADENOCARCINOMA. . E. Segments of lymph node and fibroadipose tissue, level 5 mediastinal lymph node: - Negative for tumor. . F. Segments of lymph node and fibroadipose tissue, level 11 mediastinal lymph node: - Negative for tumor. Plan . PULMONARY STATUS IMPROVING INCREASE PT ADVANCE ORAL DIET PER GI/ CT ABD REVIEWED WILL NEED ADJUVANT CHEMO IN FUTURE PRN BIAPAP SLEEP STUDY OP CHEST TUBE D/C 2/3 LIFE LONG ELIQUIS OFF NARCOTICS FOLLOW BC STAPH COAG NEG , LIKELY CONTAMINATION / ABX PER ID D/W RN/ MATT HALL MD May 30, 2018 13:33
[2018-05-30] MEDS: THIAMINE 100 MG TABLET. PO SCH (13:56)
[2018-05-30] MEDS: FOLIC ACID 1 MG TABLET. PO SCH (13:56)
[2018-05-30] MEDS: MULTIVITAMIN with MINERAL TABLET. PO SCH (13:56)
[2018-05-30 15:30] VITALS: BP 153/62
--- NOTE | 2018-05-30 15:34 | PDOC ---
SURGICAL PROGRESS NOTE Subjective Patient doing well, no abdominal pain passing stool. Vital Signs Vital Signs Date Time Temp Pulse Resp B/P (MAP) Pulse Ox O2 Delivery O2 Flow Rate FiO2 05/30/18 11:59 Room Air 05/30/18 11:25 98.1 70 18 124/61 (82) 94 98.1 I&O Intake and Output 05/30/18 07:01 Intake Total 2520 ml Output Total 500 ml Balance 2020 ml Intake Oral 1020 ml IV Total 1500 ml Output Urine Total 500 ml # Voids 1 # Bowel Movements 1 PATIENT HAS A ORTIZ: No General: Alert, Oriented X3, Cooperative, No acute distress Abdomen: Normal bowel sounds, Soft, No tenderness Labs Laboratory Tests Test 05/29/18 06:30 05/30/18 03:15 Creatinine 0.9 mg/dL (0.7-1.3) 0.9 mg/dL (0.7-1.3) Estimated GFR (Cockcroft-Gault) 86.7 86.7 White Blood Count 11.0 x10^3/uL (4.0-11.0) Red Blood Count 3.49 x10^6/uL (4.30-5.70) Hemoglobin 9.6 g/dL (13.0-17.5) Hematocrit 29.4 % (39.0-53.0) Mean Corpuscular Volume 84 fL (79-100) Mean Corpuscular Hemoglobin 28 pg (25-35) Mean Corpuscular Hemoglobin Concent 33 g/dL (31-37) Red Cell Distribution Width 17.0 % (11.5-14.5) Platelet Count 395 x10^3/uL (140-400) Neutrophils (%) (Auto) 75 % (31-73) Lymphocytes (%) (Auto) 13 % (24-48) Monocytes (%) (Auto) 11 % (0-9) Eosinophils (%) (Auto) 1 % (0-3) Basophils (%) (Auto) 1 % (0-3) Neutrophils # (Auto) 8.2 x10^3uL (1.8-7.7) Lymphocytes # (Auto) 1.4 x10^3/uL (1.0-4.8) Monocytes # (Auto) 1.2 x10^3/uL (0.0-1.1) Eosinophils # (Auto) 0.1 x10^3/uL (0.0-0.7) Basophils # (Auto) 0.1 x10^3/uL (0.0-0.2) Sodium Level 142 mmol/L (136-145) Potassium Level 3.5 mmol/L (3.5-5.1) Chloride Level 107 mmol/L (98-107) Carbon Dioxide Level 25 mmol/L (21-32) Anion Gap 10 (6-14) Blood Urea Nitrogen 9 mg/dL (8-26) Glucose Level 100 mg/dL (70-99) Calcium Level 8.0 mg/dL (8.5-10.1) Vancomycin Level Trough 19.3 mcg/mL (10.0-20.0) Vancomycin Last Dose Date [id number] Vancomycin Last Dose Time 1600 Laboratory Tests Test 05/30/18 03:15 White Blood Count 11.0 x10^3/uL (4.0-11.0) Red Blood Count 3.49 x10^6/uL (4.30-5.70) Hemoglobin 9.6 g/dL (13.0-17.5) Hematocrit 29.4 % (39.0-53.0) Mean Corpuscular Volume 84 fL (79-100) Mean Corpuscular Hemoglobin 28 pg (25-35) Mean Corpuscular Hemoglobin Concent 33 g/dL (31-37) Red Cell Distribution Width 17.0 % (11.5-14.5) Platelet Count 395 x10^3/uL (140-400) Neutrophils (%) (Auto) 75 % (31-73) Lymphocytes (%) (Auto) 13 % (24-48) Monocytes (%) (Auto) 11 % (0-9) Eosinophils (%) (Auto) 1 % (0-3) Basophils (%) (Auto) 1 % (0-3) Neutrophils # (Auto) 8.2 x10^3uL (1.8-7.7) Lymphocytes # (Auto) 1.4 x10^3/uL (1.0-4.8) Monocytes # (Auto) 1.2 x10^3/uL (0.0-1.1) Eosinophils # (Auto) 0.1 x10^3/uL (0.0-0.7) Basophils # (Auto) 0.1 x10^3/uL (0.0-0.2) Sodium Level 142 mmol/L (136-145) Potassium Level 3.5 mmol/L (3.5-5.1) Chloride Level 107 mmol/L (98-107) Carbon Dioxide Level 25 mmol/L (21-32) Anion Gap 10 (6-14) Blood Urea Nitrogen 9 mg/dL (8-26) Creatinine 0.9 mg/dL (0.7-1.3) Estimated GFR (Cockcroft-Gault) 86.7 Glucose Level 100 mg/dL (70-99) Calcium Level 8.0 mg/dL (8.5-10.1) Vancomycin Level Trough 19.3 mcg/mL (10.0-20.0) Vancomycin Last Dose Date [id number] Vancomycin Last Dose Time 1600 I have reviewed the following KUB shows contrast to the rectum Assessment/Plan Resolving colonic ileus, adv diet LUIS GIRALDO MD May 30, 2018 15:34
[2018-05-30] MEDS: POLYETHYLENE GLYCOL 3350 17 GM PACKET. PO SCH (17:06)
[2018-05-30 19:00] VITALS: BP 129/55
[2018-05-30 23:24] VITALS: BP 128/61
[2018-05-31 03:23] VITALS: BP 149/59
[2018-05-31 05:49] LABS: GFR 76.7
[2018-05-31 07:00] VITALS: BP 130/57
--- NOTE | 2018-05-31 08:25 | PDOC ---
Progress Note Subjective Subjective Abdo distention and discomfort better. Good BM. No pulmonary issues. ROS ROS No nausea No vomiting No pain No rash Vital Sign Vital Signs Vital Signs Date Time Temp Pulse Resp B/P (MAP) Pulse Ox O2 Delivery O2 Flow Rate FiO2 05/31/18 07:00 97.9 69 18 130/57 (81) 96 Room Air 97.9 Physical Exam PHYSICAL EXAM GENERAL: Alert and oriented gentleman, not in any distress. VITAL SIGNS: Stable, afebrile. HEENT: NAD. NECK: Supple, no JVP, no lymphadenopathy. LUNGS: Clear. Decreased breath sounds on the left. The incisions are unremarkable for any infection. ABDOMEN: Distended, tympanic. No tenderness, no rebound or guarding, no organomegaly appreciated. EXTREMITIES: No edema or cyanosis. SKIN: Unremarkable. NEUROLOGIC: The patient is neurologically alert, awake and appropriate. No focal neurologic deficit. Labs Lab Laboratory Tests Test 05/31/18 05:20 Blood Urea Nitrogen 7 mg/dL (8-26) Creatinine 1.0 mg/dL (0.7-1.3) Estimated GFR (Cockcroft-Gault) 76.7 Procalcitonin 0.30 ng/mL (0.00-0.10) Objective Assessment POD#8, s/p left upper lobectomy and mediastinal lymphadenectomy Abdo distention and discomfort better. Good BM. No pulmonary issues. 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 Will start adjuvant chemotherapy with Cisplatin and Navelbine in 4 weeks Plan Plan of Care Advance diet as per GI Home when tolerating regular diet NAMRATA WYATT MD May 31, 2018 08:25
[2018-05-31] MEDS: LACTOBACILLUS RHAMNOSUS GG 1 CAPSULE. PO SCH ×2 (08:32→20:26)
[2018-05-31] MEDS: SENNOSIDES/DOCUSATE 8.6/50MG TABLET. PO SCH (08:32)
[2018-05-31] MEDS: APIXABAN 5 MG TABLET. PO SCH ×2 (08:32→20:26)
[2018-05-31] MEDS: GABAPENTIN 300 MG CAPSULE. PO SCH ×3 (08:32→20:26)
[2018-05-31] MEDS: MULTIVITAMIN with MINERAL TABLET. PO SCH (08:32)
[2018-05-31] MEDS: METOPROLOL TART IMMED RELEASE 25 MG TABLET. PO SCH ×2 (08:33→20:26)
[2018-05-31] MEDS: FAMOTIDINE 20 MG/2 ML VIAL IVP SCH (08:33)
[2018-05-31] MEDS: THIAMINE 100 MG TABLET. PO SCH (08:33)
[2018-05-31] MEDS: POLYETHYLENE GLYCOL 3350 17 GM PACKET. PO SCH (08:33)
[2018-05-31] MEDS: DOCUSATE SODIUM 100 MG CAPSULE. PO SCH (08:33)
[2018-05-31] MEDS: FOLIC ACID 1 MG TABLET. PO SCH (08:33)
--- NOTE | 2018-05-31 08:41 | RAD ---
Examination: PORTABLE CHEST 1V History: s/p left upper lobectomy Comparison/Correlation: 05/30/2018 portable chest x-ray exam Findings: Portable upright frontal view of the chest was obtained. Right-sided PICC terminates overlying the superior vena cava. Mediastinal clips noted. Left hilar suture material present. Mediastinal shift to the left is present. Small left pleural effusion noted. Decreased opacification of the left upper hemithorax noted. Impression: Improvement in left upper lung field aeration. Small left effusion. Right lung field is unremarkable. Electronically signed by: Abdoul Lorenz MD (05/31/2018 8:37 AM) [facility]
[2018-05-31] MEDS: IPRATRPIUM/ALBUTEROL 0.5/2.5MG 3 ML NEBU. NEB SCH ×3 (08:54→15:12)
--- NOTE | 2018-05-31 09:07 | PDOC ---
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 ROS - no abd pain Objective Objective Vital Signs Date Time Temp Pulse Resp B/P (MAP) Pulse Ox O2 Delivery O2 Flow Rate FiO2 05/31/18 08:33 69 130/57 05/31/18 07:00 97.9 18 96 Room Air 97.9 05/28/18 08:00 2.0 Intake and Output 05/31/18 07:01 Intake Total 1600 ml Balance 1600 ml Intake Oral 1600 ml # Voids 3 # Bowel Movements 2 Physical Exam Heart: Normal S1, Normal S2 General: Alert, Oriented X3 Lungs: Clear to auscultation Neuro: Normal speech Psych/Mental Status: Mental status NL Assessment Assessment IMPRESSION AND PLAN: 1. 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 Pathology revealed a T3N2M0 stage 3B lung cancer. I would recommend adjuvant chemotherapy with cisplatin and Navelbine to start in about 4 weeks followed by immunotherapy with Imfinzi. He will follow up with his primary oncologist, Dr. Delgadillo in about 3-4 weeks. I discussed in detail with the patient and his . I also discussed with Dr. Kaiden Nogueira and Dr Bell. I also reviewed his case at multidisciplinary tumor conference. 2. Pseudoobstruction of the colon, status post colonoscopy for decompression. He is improving. I d/w DR Rose, he tolerating diet. Advance diet per Dr Rose. 3. Anemia. His hemoglobin was normal preoperatively. Hence, the drop in the hemoglobin is consistent with surgery. Hemoglobin 9.1 on 05/26/2018. Continue to monitor p.r.n. Comment Review of Relevant I have reviewed the following items florencio (where applicable) has been applied. Labs Laboratory Tests Test 05/30/18 03:15 05/31/18 05:20 White Blood Count 11.0 x10^3/uL (4.0-11.0) Red Blood Count 3.49 x10^6/uL (4.30-5.70) Hemoglobin 9.6 g/dL (13.0-17.5) Hematocrit 29.4 % (39.0-53.0) Mean Corpuscular Volume 84 fL (79-100) Mean Corpuscular Hemoglobin 28 pg (25-35) Mean Corpuscular Hemoglobin Concent 33 g/dL (31-37) Red Cell Distribution Width 17.0 % (11.5-14.5) Platelet Count 395 x10^3/uL (140-400) Neutrophils (%) (Auto) 75 % (31-73) Lymphocytes (%) (Auto) 13 % (24-48) Monocytes (%) (Auto) 11 % (0-9) Eosinophils (%) (Auto) 1 % (0-3) Basophils (%) (Auto) 1 % (0-3) Neutrophils # (Auto) 8.2 x10^3uL (1.8-7.7) Lymphocytes # (Auto) 1.4 x10^3/uL (1.0-4.8) Monocytes # (Auto) 1.2 x10^3/uL (0.0-1.1) Eosinophils # (Auto) 0.1 x10^3/uL (0.0-0.7) Basophils # (Auto) 0.1 x10^3/uL (0.0-0.2) Sodium Level 142 mmol/L (136-145) Potassium Level 3.5 mmol/L (3.5-5.1) Chloride Level 107 mmol/L (98-107) Carbon Dioxide Level 25 mmol/L (21-32) Anion Gap 10 (6-14) Blood Urea Nitrogen 9 mg/dL (8-26) 7 mg/dL (8-26) Creatinine 0.9 mg/dL (0.7-1.3) 1.0 mg/dL (0.7-1.3) Estimated GFR (Cockcroft-Gault) 86.7 76.7 Glucose Level 100 mg/dL (70-99) Calcium Level 8.0 mg/dL (8.5-10.1) Vancomycin Level Trough 19.3 mcg/mL (10.0-20.0) Vancomycin Last Dose Date [id number] Vancomycin Last Dose Time 1600 Procalcitonin 0.30 ng/mL (0.00-0.10) Laboratory Tests Test 05/31/18 05:20 Blood Urea Nitrogen 7 mg/dL (8-26) Creatinine 1.0 mg/dL (0.7-1.3) Estimated GFR (Cockcroft-Gault) 76.7 Procalcitonin 0.30 ng/mL (0.00-0.10) Microbiology 05/26/18 Blood Culture - Preliminary, Resulted NO GROWTH AFTER 4 DAYS Medications Current Medications Ondansetron HCl (Zofran) 4 mg PRN Q6HRS PRN IV NAUSEA/VOMITING; Start 05/22/18 at 07:00; Stop 05/22/18 at 14:47; Status DC Fentanyl Citrate (Fentanyl 2ml Vial) 25 mcg PRN Q5MIN PRN IV MILD PAIN; Start 05/22/18 at 07:00; Stop 05/23/18 at 06:59; Status DC Fentanyl Citrate (Fentanyl 2ml Vial) 50 mcg PRN Q5MIN PRN IV MODERATE TO SEVERE PAIN; Start 05/22/18 at 07:00; Stop 05/23/18 at 06:59; Status DC Morphine Sulfate (Morphine Sulfate) 1 mg PRN Q10MIN PRN IV SEVERE PAIN; Start 05/22/18 at 07:00; Stop 05/23/18 at 06:59; Status DC Ringer's Solution 1,000 ml @ 30 mls/hr Q24H IV Last administered on 05/22/18at 08:00; Start 05/22/18 at 07:00; Stop 05/22/18 at 18:59; Status DC Lidocaine HCl (Xylocaine-Mpf 1% 2ml Vial) 2 ml PRN 1X PRN ID IV START; Start at 07:00; Stop 05/23/18 at 06:59; Status DC Hydromorphone HCl (Dilaudid) 0.5 mg PRN Q10MIN PRN IV SEV PAIN, Second choice; Start 05/22/18 at 07:00; Stop 05/23/18 at 06:59; Status DC Prochlorperazine Edisylate (Compazine) 5 mg PACU PRN PRN IV NAUSEA, MRX1; Start 05/22/18 at 07:00; Stop 05/23/18 at 06:59; Status DC Cefazolin Sodium 1 gm/Sodium Chloride 500 ml @ 500 mls/hr 1X ONCE IRR Last administered on 05/22/18at 09:56; Start 05/22/18 at 06:00; Stop 05/22/18 at 06:59 ; Status DC Cefazolin Sodium/ Dextrose 50 ml @ 100 mls/hr 1X PREOP PRN IV PRIOR TO PROCEDURE; Start 05/22/18 at 06:00; Stop 05/22/18 at 18:00; Status DC Cellulose (Surgicel Hemostat 4x8) 1 each STK-MED ONCE .ROUTE Last administered on 05/22/18at 13:24; Start 05/22/18 at 07:38; Stop 05/22/18 at 07:41; Status DC Cellulose (Surgicel Hemostat 4x8) 1 each STK-MED ONCE .ROUTE ; Start 05/22/18 at 07:38; Stop 05/22/18 at 07:41; Status DC Dexamethasone Sodium Phosphate (Decadron) 20 mg STK-MED ONCE .ROUTE ; Start at 08:41; Stop 05/22/18 at 08:43; Status DC Lidocaine HCl (Lidocaine Pf 2% Vial) 5 ml STK-MED ONCE .ROUTE ; Start 05/22/18 at 08:41; Stop 05/22/18 at 08:43; Status DC Propofol 20 ml @ As Directed STK-MED ONCE IV ; Start 05/22/18 at 08:41; Stop at 08:44; Status DC Ondansetron HCl (Zofran) 4 mg STK-MED ONCE .ROUTE ; Start 05/22/18 at 08:41; Stop 05/22/18 at 08:44; Status DC Rocuronium [place] (Zemuron) 100 mg STK-MED ONCE .ROUTE ; Start 05/22/18 at 08: 41; Stop 05/22/18 at 08:44; Status DC Midazolam HCl (Versed) 2 mg STK-MED ONCE .ROUTE ; Start 05/22/18 at 08:42; Stop 05/22/18 at 08:44; Status DC Fentanyl Citrate (Fentanyl 5ml Vial) 250 mcg STK-MED ONCE .ROUTE ; Start at 08:46; Stop 05/22/18 at 08:48; Status DC Ephedrine Sulfate (ePHEDrine PF IN SALINE SYRINGE) 50 mg STK-MED ONCE IV ; Start 05/22/18 at 08:47; Stop 05/22/18 at 08:48; Status DC Glycopyrrolate (Robinul) 1 mg STK-MED ONCE .ROUTE ; Start 05/22/18 at 08:47; Stop 05/22/18 at 08:49; Status DC Sodium Chloride 35 ml/Fentanyl Citrate 250 mcg/ Ropivacaine 10 ml/ Epidural Dosage Infused (Pha) 50 ml @ 0 mls/hr CONT PRN EPID SEE PROTOCOL TABLE Last administered on 05/24/18at 10:19; Start 05/22/18 at 09:30; Stop 05/26/18 at 13:09; Status DC Succinylcholine Chloride (Anectine) 200 mg STK-MED ONCE .ROUTE ; Start 05/22/18 at 09:45; Stop 05/22/18 at 09:47; Status DC Bupivacaine HCl (Sensorcaine Mpf 0.5%) 30 ml STK-MED ONCE .ROUTE ; Start at 10:53; Stop 05/22/18 at 10:56; Status DC Bupivacaine HCl (Sensorcaine-Mpf 0.25%) 10 ml STK-MED ONCE .ROUTE ; Start at 10:54; Stop 05/22/18 at 10:56; Status DC Rocuronium [place] (Zemuron) 100 mg STK-MED ONCE .ROUTE ; Start 05/22/18 at 11: 42; Stop 05/22/18 at 11:45; Status DC Propofol 20 ml @ As Directed STK-MED ONCE IV ; Start 05/22/18 at 11:43; Stop at 11:45; Status DC Phenylephrine HCl (PHENYLEPHRINE in 0.9% NACL PF) 1 mg STK-MED ONCE IV ; Start 05/22/18 at 11:43; Stop 05/22/18 at 11:45; Status DC Phenylephrine HCl (PHENYLEPHRINE in 0.9% NACL PF) 1 mg STK-MED ONCE IV ; Start 05/22/18 at 11:43; Stop 05/22/18 at 11:45; Status DC Cefazolin Sodium/ Dextrose (Ancef 2gm Premix) 2 gm STK-MED ONCE IV ; Start 05/22 at 08:00; Stop 05/22/18 at 13:23; Status DC Lidocaine HCl (Lidocaine Pf 2% Vial) 5 ml STK-MED ONCE .ROUTE ; Start 05/22/18 at 14:08; Stop 05/22/18 at 14:10; Status DC Propofol 100 ml @ As Directed STK-MED ONCE IV ; Start 05/22/18 at 14:36; Stop 05/22/18 at 14:38; Status DC Diphenhydramine HCl (Benadryl) 25 mg PRN Q6HRS PRN IV ITCHING; Start 05/22/18 at 14:45 Famotidine (Pepcid Vial) 20 mg BID IVP Last administered on 05/31/18at 08:33; Start 05/22/18 at 21:00 Info (Icu Electrolyte Protocol) 1 ea DAILY MC Last administered on 05/27/18at 09: 00; Start 05/23/18 at 09:00; Stop 05/28/18 at 09:32; Status DC Heparin Sodium (Porcine) (Heparin Sodium) 5,000 unit Q8HRS SQ Last administered on 05/28/18at 05:46; Start 05/22/18 at 22:00; Stop 05/28/18 at 09:28; Status DC Sodium Chloride (Normal Saline Flush) 3 ml QSHIFT PRN IV AFTER MEDS AND BLOOD DRAWS; Start 05/22/18 at 14:45 Oxycodone HCl (Roxicodone) 10 mg PRN Q4HRS PRN PO MODERATE PAIN, SEVERE PAIN Last administered on 05/23/18at 21:29; Start 05/22/18 at 14:45; Stop 05/28/18 at 08:57; Status DC Ketorolac Tromethamine (Toradol 15mg Vial) 15 mg PRN Q6HRS PRN IV PAIN Last administered on 05/23/18at 18:59; Start 05/22/18 at 14:45; Stop 05/24/18 at 06:31 ; Status DC Acetaminophen (Tylenol) 650 mg PRN Q6HRS PRN PO Headaches, Temp > 101.5F Last administered on 05/24/18at 16:11; Start 05/22/18 at 14:45; Stop 05/28/18 at 13:41; Status DC Gabapentin (Neurontin) 600 mg Q8HRS PO Last administered on 05/23/18at 21:27; Start 05/22/18 at 22:00; Stop 05/24/18 at 11:16; Status DC Naloxone HCl (Narcan) 0.4 mg PRN Q2MIN PRN IV SEE INSTRUCTIONS Last administered on 05/24/18 04:41; Start 05/22/18 at 14:45 Morphine Sulfate (Morphine Sulfate) 2 mg PRN Q1HR PRN IV PAIN; Start 05/22/18 at 14:45; Status UNV Ondansetron HCl (Zofran) 4 mg PRN Q6HRS PRN IV NAUESA, 1ST CHOICE Last administered on 05/23/18at 14:00; Start 05/22/18 at 14:45 Prochlorperazine Edisylate (Compazine) 5 mg PRN Q6HRS PRN IV N/V, 2nd Choice, MR X1; Start 05/22/18 at 14:45 Metoclopramide HCl (Reglan Vial) 5 mg PRN Q6HRS PRN IV Nausea/Vomiting, 3rd Choice Last administered on 05/24/18at 16:30; Start 05/22/18 at 14:45 Senna/Docusate Sodium (Senna Plus) 1 tab BID PO Last administered on 05/31/18 08:32; Start 05/22/18 at 21:00 Docusate Sodium (Colace) 100 mg BID PO Last administered on 05/31/18 08:33; Start 05/22/18 at 21:00 Cefazolin Sodium/ Dextrose 50 ml @ 100 mls/hr Q6H IV Last administered on 05/23at 04:35; Start 05/22/18 at 16:45; Stop 05/23/18 at 05:14; Status DC Metoprolol Tartrate (Lopressor) 25 mg BID PO Last administered on 05/31/18 08: 33; Start 05/22/18 at 21:00 Hydralazine HCl (Apresoline Inj) 25 mg PRN Q2HRS PRN IVP ELEVATED BP, SEE COMMENTS; Start 05/22/18 at 17:00 Insulin Human Regular (HumuLIN R VIAL) 10 unit 1X ONCE IV Last administered on 05/24/18 06:39; Start 05/24/18 at 07:00; Stop 05/24/18 at 07:01; Status DC Dextrose (Dextrose 50%-Water Syringe) 25 gm 1X ONCE IV Last administered on 2/ 1/19at 06:41; Start 05/24/18 at 07:00; Stop 05/24/18 at 07:01; Status DC Albuterol Sulfate (Ventolin Neb Soln) 2.5 mg PRN Q4HRS PRN NEB SHORTNESS OF BREATH; Start 05/24/18 at 11:15 Sodium Chloride 1,000 ml @ 80 mls/hr [id number] IV Last administered on 05/27/18at 23:16; Start 05/24/18 at 14:30; Stop 05/28/18 at 09:28; Status DC Multivitamins 10 ml/Thiamine HCl 100 mg/Folic Acid 1 mg/Sodium Chloride 1,011.2 ml @ 80 mls/hr DAILY IV Last administered on 05/28/18at 09:31; Start 05/24/18 at 15:30; Stop 05/28/18 at 10:14; Status DC Piperacillin Sod/ Tazobactam Sod 4.5 gm/Sodium Chloride 100 ml @ 200 mls/hr Q6HRS IV Last administered on 05/28/18at 12:56; Start 05/24/18 at 18:00; Stop 05/28 at 13:59; Status DC Ketorolac Tromethamine (Toradol 15mg Vial) 15 mg PRN Q6HRS PRN IV PAIN Last administered on 05/26/18 18:23; Start 05/24/18 at 17:15; Stop 05/29/18 at 17:14; Status DC Gabapentin (Neurontin) 600 mg TID PO Last administered on 05/31/18at 08:32; Start 05/24/18 at 21:00 Neostigmine Methylsulfate (Bloxiverz) 1.5 mg 1X ONCE IV Last administered on at 17:22; Start 05/25/18 at 17:15; Stop 05/25/18 at 17:16; Status DC Atropine Sulfate (ATROPINE 1mg SYRINGE) 1 mg PRN 1X PRN IV SYMPTOMATIC BRADYCARDIA; Start 05/25/18 at 17:15 Propofol 20 ml @ As Directed STK-MED ONCE IV ; Start 05/26/18 at 09:10; Stop 05/26 at 09:12; Status DC Propofol 0 ml @ As Directed STK-MED ONCE IV ; Start 05/26/18 at 09:10; Stop at 09:12; Status DC Propofol 20 ml @ As Directed STK-MED ONCE IV ; Start 05/26/18 at 10:57; Stop 05/26 at 11:00; Status DC Neostigmine Methylsulfate (Bloxiverz) 2 mg 1X ONCE IV Last administered on 05/26 11:15; Start 05/26/18 at 11:15; Stop 05/26/18 at 11:16; Status DC Potassium Chloride/Water 50 ml @ 50 mls/hr 1X ONCE IV Last administered on 05/26at 17:12; Start 05/26/18 at 17:00; Stop 05/26/18 at 17:59; Status DC Potassium Chloride/Water 50 ml @ 50 mls/hr Q1H IV Last administered on 11:12; Start 05/27/18 at 11:30; Stop 05/27/18 at 13:29; Status DC Bisacodyl (Dulcolax Supp) 10 mg PRN DAILY PRN MT CONSTIPATION Last administered on 05/27/18at 15:23; Start 05/27/18 at 14:45 Oxycodone HCl (Roxicodone) 5 mg PRN Q4HRS PRN PO MODERATE PAIN, SEVERE PAIN; Start 05/28/18 at 09:00; Stop 05/28/18 at 13:38; Status DC Bisacodyl (Dulcolax Supp) 10 mg 1X ONCE MT Last administered on 05/28/18at 12:04 ; Start 05/28/18 at 09:00; Stop 05/28/18 at 09:06; Status DC Apixaban (Eliquis) 5 mg BID PO Last administered on 05/31/18 08:32; Start at 21:00 Info (Anti-Coagulation Monitoring By Pharmacy) 1 each PRN DAILY PRN MC SEE COMMENTS Last administered on 05/29/18at 10:28; Start 05/28/18 at 09:45 Multivitamins (Thera M Plus) 1 tab DAILY PO Last administered on 05/31/18 08:32 ; Start 05/29/18 at 09:00 Folic Acid (Folic Acid) 1 mg DAILY PO Last administered on 05/31/18at 08:33; Start 05/29/18 at 09:00 Thiamine Mononitrate (Vitamin B-1) 100 mg DAILY PO Last administered on at 08:33; Start 05/29/18 at 09:00 Lactobacillus Rhamnosus (Culturelle) 1 cap BID PO Last administered on at 08:32; Start 05/28/18 at 21:00 Acetaminophen (Tylenol) 500 mg PRN Q6HRS PRN PO MILD PAIN / TEMP; Start at 13:45 Albuterol/ Ipratropium (Duoneb) 3 ml RTQID NEB Last administered on 05/30/18at 20 :36; Start 05/28/18 at 16:00 Albuterol/ Ipratropium (Duoneb) 3 ml 1X ONCE NEB Last administered on at 14:07; Start 05/28/18 at 14:00; Stop 05/28/18 at 14:01; Status DC Vancomycin HCl 1.75 gm/Sodium Chloride 500 ml @ 250 mls/hr Q12H IV ; Start 05/28 at 14:00; Status UNV Vancomycin HCl (Vanco Per Pharmacy) 1 each PRN DAILY PRN MC SEE COMMENTS Last administered on 05/30/18at 04:10; Start 05/28/18 at 14:15; Stop 05/30/18 at 09:35; Status DC Vancomycin HCl 2 gm/Sodium Chloride 500 ml @ 250 mls/hr ONCE ONCE IV Last administered on 05/28/18at 16:05; Start 05/28/18 at 14:15; Stop 05/28/18 at 16:14; Status DC Vancomycin HCl 2 gm/Sodium Chloride 500 ml @ 250 mls/hr Q12H IV Last administered on 05/30/18at 03:59; Start 05/29/18 at 04:00; Stop 05/30/18 at 08:24; Status DC Vancomycin HCl (Vancomycin Trough Level) 1 each 1X ONCE MC Last administered on 05/30/18at 03:30; Start 05/30/18 at 03:30; Stop 05/30/18 at 03:31; Status DC Bisacodyl (Dulcolax Supp) 10 mg 1X ONCE MT ; Start 05/29/18 at 11:00; Stop at 11:01; Status DC Iohexol (Omnipaque 240 Mg/ml) 30 ml 1X ONCE PO ; Start 05/29/18 at 11:15; Stop 05/29/18 at 11:16; Status DC Info (CONTRAST GIVEN -- Rx MONITORING) 1 each PRN DAILY PRN MC SEE COMMENTS; Start 05/29/18 at 11:15; Stop 05/31/18 at 11:14 Neostigmine Methylsulfate (Bloxiverz) 2 mg 1X ONCE IV Last administered on 05/29at 15:32; Start 05/29/18 at 14:15; Stop 05/29/18 at 14:16; Status DC Polyethylene Glycol (miraLAX PACKET) 17 gm DAILY PO Last administered on at 08:33; Start 05/30/18 at 17:00 Active Scripts Active Reported Eliquis (Apixaban) 5 Mg Tablet 5 Mg PO BID Resume tomomorrow 04/05 Amlodipine Besylate 10 Mg Tablet 10 Mg PO DAILY Lisinopril-Hctz 20-12.5 Mg Tab (Lisinopril/Hydrochlorothiazide) 1 Each Tablet 1 Tab PO DAILY Allopurinol 100 Mg Tablet 100 Mg PO BID Vitals/I & O Vital Sign - Last 24 Hours 05/30/18 05/30/18 05/30/18 05/30/18 11:25 11:59 15:30 16:17 Temp 98.1 98.2 98.1 98.2 Pulse 70 78 Resp 18 18 B/P (MAP) 124/61 (82) 153/62 (92) Pulse Ox 94 95 O2 Delivery Room Air Room Air Room Air Room Air 05/30/18 05/30/18 05/30/18 05/30/18 19:00 20:10 20:21 20:37 Temp 98.2 98.2 Pulse 89 89 Resp 18 B/P (MAP) 129/55 (79) 129/55 Pulse Ox 98 O2 Delivery Room Air Room Air Room Air 05/30/18 05/31/18 05/31/18 05/31/18 23:24 03:23 07:00 08:33 Temp 98.9 98.1 97.9 98.9 98.1 97.9 Pulse 68 71 69 69 Resp 16 20 18 B/P (MAP) 128/61 (83) 149/59 (89) 130/57 (81) 130/57 Pulse Ox 96 O2 Delivery Room Air Room Air Room Air Intake and Output 05/30/18 05/30/18 05/31/18 15:01 23:01 07:01 Intake Total 800 ml 800 ml Balance 800 ml 800 ml BAHMAN MARINELLI MD May 31, 2018 09:07
--- NOTE | 2018-05-31 09:57 | PDOC ---
Infectious Disease Note Subjective Subjective pt is feeling better, had BM ROS ROS no n/v/d/ Vital Sign Vital Signs Vital Signs Date Time Temp Pulse Resp B/P (MAP) Pulse Ox O2 Delivery O2 Flow Rate FiO2 05/31/18 08:33 69 130/57 05/31/18 07:00 97.9 18 96 Room Air 97.9 Physical Exam PHYSICAL EXAM GENERAL: Alert and oriented gentleman, not in any distress. VITAL SIGNS: Stable, afebrile. HEENT: NAD. NECK: Supple, no JVP, no lymphadenopathy. LUNGS: Clear. Decreased breath sounds on the left. The incisions are unremarkable for any infection. ABDOMEN: Distended, tympanic. No tenderness, no rebound or guarding, no organomegaly appreciated. EXTREMITIES: No edema or cyanosis. SKIN: Unremarkable. NEUROLOGIC: The patient is neurologically alert, awake and appropriate. No focal neurologic deficit. Labs Lab Laboratory Tests Test 05/31/18 05:20 Blood Urea Nitrogen 7 mg/dL (8-26) Creatinine 1.0 mg/dL (0.7-1.3) Estimated GFR (Cockcroft-Gault) 76.7 Procalcitonin 0.30 ng/mL (0.00-0.10) Micro BC + G + cocci/coag neg staph Objective Assessment BC + with G + cocci , coag neg staph Lung ca s/p lobectomy Ileus Colon polyp Fever Leukocytosis Plan Plan of Care off antibiotics ok to d/c from ID stand point d/w TOMAS LOWERY MD May 31, 2018 09:57
--- NOTE | 2018-05-31 10:26 | PDOC ---
SURGICAL PROGRESS NOTE Subjective Patient feeling good several BM's and tolerating clears Vital Signs Vital Signs Date Time Temp Pulse Resp B/P (MAP) Pulse Ox O2 Delivery O2 Flow Rate FiO2 05/31/18 08:33 69 130/57 05/31/18 08:00 Room Air 2.0 05/31/18 07:00 97.9 18 96 97.9 I&O Intake and Output 05/31/18 07:01 Intake Total 1600 ml Balance 1600 ml Intake Oral 1600 ml # Voids 3 # Bowel Movements 2 PATIENT HAS A ORTIZ: No General: Alert, Oriented X3, Cooperative, No acute distress Abdomen: Normal bowel sounds, Soft, No tenderness Labs Laboratory Tests Test 05/30/18 03:15 05/31/18 05:20 White Blood Count 11.0 x10^3/uL (4.0-11.0) Red Blood Count 3.49 x10^6/uL (4.30-5.70) Hemoglobin 9.6 g/dL (13.0-17.5) Hematocrit 29.4 % (39.0-53.0) Mean Corpuscular Volume 84 fL (79-100) Mean Corpuscular Hemoglobin 28 pg (25-35) Mean Corpuscular Hemoglobin Concent 33 g/dL (31-37) Red Cell Distribution Width 17.0 % (11.5-14.5) Platelet Count 395 x10^3/uL (140-400) Neutrophils (%) (Auto) 75 % (31-73) Lymphocytes (%) (Auto) 13 % (24-48) Monocytes (%) (Auto) 11 % (0-9) Eosinophils (%) (Auto) 1 % (0-3) Basophils (%) (Auto) 1 % (0-3) Neutrophils # (Auto) 8.2 x10^3uL (1.8-7.7) Lymphocytes # (Auto) 1.4 x10^3/uL (1.0-4.8) Monocytes # (Auto) 1.2 x10^3/uL (0.0-1.1) Eosinophils # (Auto) 0.1 x10^3/uL (0.0-0.7) Basophils # (Auto) 0.1 x10^3/uL (0.0-0.2) Sodium Level 142 mmol/L (136-145) Potassium Level 3.5 mmol/L (3.5-5.1) Chloride Level 107 mmol/L (98-107) Carbon Dioxide Level 25 mmol/L (21-32) Anion Gap 10 (6-14) Blood Urea Nitrogen 9 mg/dL (8-26) 7 mg/dL (8-26) Creatinine 0.9 mg/dL (0.7-1.3) 1.0 mg/dL (0.7-1.3) Estimated GFR (Cockcroft-Gault) 86.7 76.7 Glucose Level 100 mg/dL (70-99) Calcium Level 8.0 mg/dL (8.5-10.1) Vancomycin Level Trough 19.3 mcg/mL (10.0-20.0) Vancomycin Last Dose Date [id number] Vancomycin Last Dose Time 1600 Procalcitonin 0.30 ng/mL (0.00-0.10) Laboratory Tests Test 05/31/18 05:20 Blood Urea Nitrogen 7 mg/dL (8-26) Creatinine 1.0 mg/dL (0.7-1.3) Estimated GFR (Cockcroft-Gault) 76.7 Procalcitonin 0.30 ng/mL (0.00-0.10) Assessment/Plan Colonic ileus resolving tolerating clear liquids having bowel movements will advance diet to regular LUIS GIRALDO MD May 31, 2018 10:26
--- NOTE | 2018-05-31 10:51 | PDOC ---
Subjective: Subjective: Stooled a couple times last night and once this morning - says loose. Tolerating clears. No abd pain, maybe still feels a little tight sometimes to the right, Objective: Vital Signs: Vital Signs Date Time Temp Pulse Resp B/P (MAP) Pulse Ox O2 Delivery O2 Flow Rate FiO2 05/31/18 08:33 69 130/57 05/31/18 08:00 Room Air 2.0 05/31/18 07:00 97.9 18 96 97.9 Labs: Laboratory Tests Test 05/31/18 05:20 Blood Urea Nitrogen 7 mg/dL Creatinine 1.0 mg/dL Estimated GFR (Cockcroft-Gault) 76.7 Procalcitonin 0.30 ng/mL BLOOD CULTURE LC Final Final report BLD CULT RESULT 1 Final Comment Staphylococcus epidermidis PE: GEN: NAD, up to chair LUNGS: CTAB HEART: RRR ABD: distended, ?softer, BS present (mostly to right), non-tender NEURO/PSYCH: A & O �3 A/P: Colonic pseudo-obstruction - resolving -- Reviewed w/ Dr. Zheng - try full liquids, ADAT. Has Miralax, Colace, and Senna - also Dulcolax supp PRN - will review what he should continue. WAN ELIZALDE May 31, 2018 10:51
[2018-05-31 11:45] VITALS: BP 136/61
--- NOTE | 2018-05-31 13:04 | NUR ---
SS following up with discharge planning. SS met with pt's RN and was notified that pt needs to advance diet prior to discharging to home with spouse. No discharge needs noted at this time. SS will continue to follow for pending discharge needs.
--- NOTE | 2018-05-31 13:08 | PDOC ---
PULMONARY PROGRESS NOTES Subjective no soa had BM today Vitals Vital Signs Date Time Temp Pulse Resp B/P (MAP) Pulse Ox O2 Delivery O2 Flow Rate FiO2 05/31/18 11:45 97.7 62 18 136/61 (86) 96 Room Air 97.7 05/31/18 08:00 2.0 General: Alert, No acute distress Lungs: Other (decrease left) Cardiovascular: S1, S2 Abdomen: Soft, Other (DISTENDED) Neuro Exam: Alert Extremities: Other (EDEMA) Skin: Warm Labs Laboratory Tests Test 05/30/18 03:15 05/31/18 05:20 White Blood Count 11.0 x10^3/uL (4.0-11.0) Red Blood Count 3.49 x10^6/uL (4.30-5.70) Hemoglobin 9.6 g/dL (13.0-17.5) Hematocrit 29.4 % (39.0-53.0) Mean Corpuscular Volume 84 fL (79-100) Mean Corpuscular Hemoglobin 28 pg (25-35) Mean Corpuscular Hemoglobin Concent 33 g/dL (31-37) Red Cell Distribution Width 17.0 % (11.5-14.5) Platelet Count 395 x10^3/uL (140-400) Neutrophils (%) (Auto) 75 % (31-73) Lymphocytes (%) (Auto) 13 % (24-48) Monocytes (%) (Auto) 11 % (0-9) Eosinophils (%) (Auto) 1 % (0-3) Basophils (%) (Auto) 1 % (0-3) Neutrophils # (Auto) 8.2 x10^3uL (1.8-7.7) Lymphocytes # (Auto) 1.4 x10^3/uL (1.0-4.8) Monocytes # (Auto) 1.2 x10^3/uL (0.0-1.1) Eosinophils # (Auto) 0.1 x10^3/uL (0.0-0.7) Basophils # (Auto) 0.1 x10^3/uL (0.0-0.2) Sodium Level 142 mmol/L (136-145) Potassium Level 3.5 mmol/L (3.5-5.1) Chloride Level 107 mmol/L (98-107) Carbon Dioxide Level 25 mmol/L (21-32) Anion Gap 10 (6-14) Blood Urea Nitrogen 9 mg/dL (8-26) 7 mg/dL (8-26) Creatinine 0.9 mg/dL (0.7-1.3) 1.0 mg/dL (0.7-1.3) Estimated GFR (Cockcroft-Gault) 86.7 76.7 Glucose Level 100 mg/dL (70-99) Calcium Level 8.0 mg/dL (8.5-10.1) Vancomycin Level Trough 19.3 mcg/mL (10.0-20.0) Vancomycin Last Dose Date [id number] Vancomycin Last Dose Time 1600 Procalcitonin 0.30 ng/mL (0.00-0.10) Laboratory Tests Test 05/31/18 05:20 Blood Urea Nitrogen 7 mg/dL (8-26) Creatinine 1.0 mg/dL (0.7-1.3) Estimated GFR (Cockcroft-Gault) 76.7 Procalcitonin 0.30 ng/mL (0.00-0.10) Medications Active Scripts Medications Dose Route/Sig Max Daily Dose Days Date Category Dose Instructions Eliquis (Apixaban) 5 Mg Tablet 5 Mg PO BID 12/05/17 Reported Resume tomomorrow 04/05 Amlodipine Besylate 10 Mg Tablet 10 Mg PO DAILY 12/01/17 Reported Lisinopril-Hctz 20-12.5 Mg Tab (Lisinopril/Hydrochlorothiazide) 1 Each Tablet 1 Tab PO DAILY 12/01/17 Reported Allopurinol 100 Mg Tablet 100 Mg PO BID 12/01/17 Reported Comments CXR 05/31 MILDLY INCREASE AERATION LEFT LUNG Impression . IMPRESSION: 1. 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 Status post left posterior lateral thoracotomy, left upper lobectomy, mediastinal lymphadenopathy. 3. Tobacco dependence, in remission, quit 14 years ago. 4. 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 5. HYPERCAPNIA, resolved 6 METABOLIC ENCEPHALOPATHY , Resolved 7. SUBCUTANEOUS EMPHYSEMA, improved 8. PSEUDOOBSTRUCTION COLON S/P COLONOSCOPY FOR DECOMPRESSION/ improving Diagnosis: A. Lung lobe, left upper lobectomy: - ADENOSQUAMOUS CARCINOMA, INVASIVE, MODERATELY TO POORLY DIFFERENTIATED, FORMING A CAVITARY LUNG MASS MEASURING 6.9 CM IN GREATEST DIMENSION. SEE SYNOPTIC REPORT. - METASTATIC ADENOCARCINOMA INVOLVING ONE OF FOUR PERIBRONCHIAL LYMPH NODES (1/4). - Focal tumor invasion of visceral pleura. - Focal tumor vascular invasion within neoplasm. - Bronchial margin of resection negative for tumor. - Pulmonary vascular margins of resection negative for tumor. - Obstructive lipoid pneumonia of lung, focal. . B. Segments of lymph node and fibroadipose tissue, level 9 mediastinal lymph node: - Negative for tumor. . C. Segments of lymph node and fibroadipose tissue, level 10 mediastinal lymph node: - METASTATIC ADENOCARCINOMA. . D. Segment of lymph node and fibroadipose tissue, level 6 mediastinal lymph node: - METASTATIC ADENOCARCINOMA. . E. Segments of lymph node and fibroadipose tissue, level 5 mediastinal lymph node: - Negative for tumor. . F. Segments of lymph node and fibroadipose tissue, level 11 mediastinal lymph node: - Negative for tumor. Plan . PULMONARY STATUS IMPROVING INCREASE PT ADVANCE ORAL DIET PER GI/ CT ABD REVIEWED WILL NEED ADJUVANT CHEMO IN FUTURE SLEEP STUDY OP LIFE LONG ELIQUIS OFF NARCOTICS FOLLOW BC STAPH COAG NEG , LIKELY CONTAMINATION / ABX PER ID D/W RN/ MATT HALL MD May 31, 2018 13:08
[2018-05-31 15:00] VITALS: BP 133/53
[2018-05-31 19:58] VITALS: BP 147/72
[2018-05-31] MEDS: FAMOTIDINE 20 MG TABLET. PO SCH (20:25)
[2018-05-31 23:00] VITALS: BP 132/69
[2018-06-01 02:27] VITALS: BP 131/59
[2018-06-01 07:00] VITALS: BP 134/63
[2018-06-01] MEDS: POLYETHYLENE GLYCOL 3350 17 GM PACKET. PO SCH (09:01)
[2018-06-01] MEDS: APIXABAN 5 MG TABLET. PO SCH ×2 (09:01→20:58)
[2018-06-01] MEDS: METOPROLOL TART IMMED RELEASE 25 MG TABLET. PO SCH ×2 (09:01→20:58)
[2018-06-01] MEDS: MULTIVITAMIN with MINERAL TABLET. PO SCH (09:02)
[2018-06-01] MEDS: LACTOBACILLUS RHAMNOSUS GG 1 CAPSULE. PO SCH ×2 (09:02→20:57)
[2018-06-01] MEDS: THIAMINE 100 MG TABLET. PO SCH (09:02)
[2018-06-01] MEDS: GABAPENTIN 300 MG CAPSULE. PO SCH ×3 (09:02→20:57)
[2018-06-01] MEDS: FOLIC ACID 1 MG TABLET. PO SCH (09:02)
[2018-06-01] MEDS: FAMOTIDINE 20 MG TABLET. PO SCH ×2 (09:02→20:57)
[2018-06-01] MEDS: ANTI-COAG MONITOR BY PHARMACY. MC PRN (09:13)
[2018-06-01 11:00] VITALS: BP 126/53
--- NOTE | 2018-06-01 11:02 | PDOC ---
PULMONARY PROGRESS NOTES Subjective no soa had BM today Vitals Vital Signs Date Time Temp Pulse Resp B/P (MAP) Pulse Ox O2 Delivery O2 Flow Rate FiO2 06/01/18 09:01 71 134/63 06/01/18 07:00 97.8 20 96 Room Air 97.8 05/31/18 08:00 2.0 General: Alert, No acute distress Lungs: Other (decrease left) Cardiovascular: S1, S2 Abdomen: Soft, Other (DISTENDED) Neuro Exam: Alert Extremities: Other (EDEMA) Skin: Warm Labs Laboratory Tests Test 05/31/18 05:20 Blood Urea Nitrogen 7 mg/dL (8-26) Creatinine 1.0 mg/dL (0.7-1.3) Estimated GFR (Cockcroft-Gault) 76.7 Procalcitonin 0.30 ng/mL (0.00-0.10) Medications Active Scripts Medications Dose Route/Sig Max Daily Dose Days Date Category Dose Instructions Eliquis (Apixaban) 5 Mg Tablet 5 Mg PO BID 12/05/17 Reported Resume tomomorrow 04/05 Amlodipine Besylate 10 Mg Tablet 10 Mg PO DAILY 12/01/17 Reported Lisinopril-Hctz 20-12.5 Mg Tab (Lisinopril/Hydrochlorothiazide) 1 Each Tablet 1 Tab PO DAILY 12/01/17 Reported Allopurinol 100 Mg Tablet 100 Mg PO BID 12/01/17 Reported Comments CXR 06/01 no change Impression . IMPRESSION: 1. 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 Status post left posterior lateral thoracotomy, left upper lobectomy, mediastinal lymphadenopathy. 3. Tobacco dependence, in remission, quit 14 years ago. 4. 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 5. HYPERCAPNIA, resolved 6 METABOLIC ENCEPHALOPATHY , Resolved 7. SUBCUTANEOUS EMPHYSEMA, improved 8. PSEUDOOBSTRUCTION COLON S/P COLONOSCOPY FOR DECOMPRESSION/ improving Diagnosis: A. Lung lobe, left upper lobectomy: - ADENOSQUAMOUS CARCINOMA, INVASIVE, MODERATELY TO POORLY DIFFERENTIATED, FORMING A CAVITARY LUNG MASS MEASURING 6.9 CM IN GREATEST DIMENSION. SEE SYNOPTIC REPORT. - METASTATIC ADENOCARCINOMA INVOLVING ONE OF FOUR PERIBRONCHIAL LYMPH NODES (04/26). - Focal tumor invasion of visceral pleura. - Focal tumor vascular invasion within neoplasm. - Bronchial margin of resection negative for tumor. - Pulmonary vascular margins of resection negative for tumor. - Obstructive lipoid pneumonia of lung, focal. . B. Segments of lymph node and fibroadipose tissue, level 9 mediastinal lymph node: - Negative for tumor. . C. Segments of lymph node and fibroadipose tissue, level 10 mediastinal lymph node: - METASTATIC ADENOCARCINOMA. . D. Segment of lymph node and fibroadipose tissue, level 6 mediastinal lymph node: - METASTATIC ADENOCARCINOMA. . E. Segments of lymph node and fibroadipose tissue, level 5 mediastinal lymph node: - Negative for tumor. . F. Segments of lymph node and fibroadipose tissue, level 11 mediastinal lymph node: - Negative for tumor. Plan . PULMONARY STATUS IMPROVING INCREASE PT ADVANCE ORAL DIET PER GI/ CT ABD REVIEWED WILL NEED ADJUVANT CHEMO IN FUTURE SLEEP STUDY OP LIFE LONG ELIQUIS OFF NARCOTICS FOLLOW BC MARCY COAG NEG , LIKELY CONTAMINATION /ID FOLLOWING D/W RN/ MATT HALL MD Jun 01, 2018 11:02
--- NOTE | 2018-06-01 11:22 | RAD ---
PORTABLE CHEST 1V History: Post left upper lobectomy. COMPARISON: Previous day. FINDINGS: Right arm central venous line is again seen, distal tip not well defined. There is a small left pleural effusion. Relative hypoaeration of the left hemithorax with leftward mediastinal shift appears similar. Left lung infiltrate is similar. No new right lung consolidation. Old fracture deformity right clavicle again seen. There may be some soft tissue air in the left breast/chest wall region superficial to the ribs. IMPRESSION: 1. Overall similar appearance of both lungs. 2. There may be some soft tissue air in the region of the left breast or left flank. Electronically signed by: Sean Nogueira MD (06/01/2018 11:17 AM) [facility]
--- NOTE | 2018-06-01 13:03 | PDOC ---
G I PROGRESS NOTE Reason for Follow-up Pseudo-obstruction Subjective Feeling better Physical Exam Lungs decreased BS CV S1 S2 Abd mildly distended, +BS Review of Relevant I have reviewed the following items florencio (where applicable) has been applied. Labs Laboratory Tests Test 05/31/18 05:20 Blood Urea Nitrogen 7 mg/dL (8-26) Creatinine 1.0 mg/dL (0.7-1.3) Estimated GFR (Cockcroft-Gault) 76.7 Procalcitonin 0.30 ng/mL (0.00-0.10) Microbiology 05/26/18 Blood Culture - Final, Complete NO GROWTH AFTER 5 DAYS Medications Current Medications Ondansetron HCl (Zofran) 4 mg PRN Q6HRS PRN IV NAUSEA/VOMITING; Start 05/22/18 at 07:00; Stop 05/22/18 at 14:47; Status DC Fentanyl Citrate (Fentanyl 2ml Vial) 25 mcg PRN Q5MIN PRN IV MILD PAIN; Start 05/22/18 at 07:00; Stop 05/23/18 at 06:59; Status DC Fentanyl Citrate (Fentanyl 2ml Vial) 50 mcg PRN Q5MIN PRN IV MODERATE TO SEVERE PAIN; Start 05/22/18 at 07:00; Stop 05/23/18 at 06:59; Status DC Morphine Sulfate (Morphine Sulfate) 1 mg PRN Q10MIN PRN IV SEVERE PAIN; Start 05/22/18 at 07:00; Stop 05/23/18 at 06:59; Status DC Ringer's Solution 1,000 ml @ 30 mls/hr Q24H IV Last administered on 05/22/18at 08:00; Start 05/22/18 at 07:00; Stop 05/22/18 at 18:59; Status DC Lidocaine HCl (Xylocaine-Mpf 1% 2ml Vial) 2 ml PRN 1X PRN ID IV START; Start at 07:00; Stop 05/23/18 at 06:59; Status DC Hydromorphone HCl (Dilaudid) 0.5 mg PRN Q10MIN PRN IV SEV PAIN, Second choice; Start 05/22/18 at 07:00; Stop 05/23/18 at 06:59; Status DC Prochlorperazine Edisylate (Compazine) 5 mg PACU PRN PRN IV NAUSEA, MRX1; Start 05/22/18 at 07:00; Stop 05/23/18 at 06:59; Status DC Cefazolin Sodium 1 gm/Sodium Chloride 500 ml @ 500 mls/hr 1X ONCE IRR Last administered on 05/22/18at 09:56; Start 05/22/18 at 06:00; Stop 05/22/18 at 06:59 ; Status DC Cefazolin Sodium/ Dextrose 50 ml @ 100 mls/hr 1X PREOP PRN IV PRIOR TO PROCEDURE; Start 05/22/18 at 06:00; Stop 05/22/18 at 18:00; Status DC Cellulose (Surgicel Hemostat 4x8) 1 each STK-MED ONCE .ROUTE Last administered on 05/22/18at 13:24; Start 05/22/18 at 07:38; Stop 05/22/18 at 07:41; Status DC Cellulose (Surgicel Hemostat 4x8) 1 each STK-MED ONCE .ROUTE ; Start 05/22/18 at 07:38; Stop 05/22/18 at 07:41; Status DC Dexamethasone Sodium Phosphate (Decadron) 20 mg STK-MED ONCE .ROUTE ; Start at 08:41; Stop 05/22/18 at 08:43; Status DC Lidocaine HCl (Lidocaine Pf 2% Vial) 5 ml STK-MED ONCE .ROUTE ; Start 05/22/18 at 08:41; Stop 05/22/18 at 08:43; Status DC Propofol 20 ml @ As Directed STK-MED ONCE IV ; Start 05/22/18 at 08:41; Stop at 08:44; Status DC Ondansetron HCl (Zofran) 4 mg STK-MED ONCE .ROUTE ; Start 05/22/18 at 08:41; Stop 05/22/18 at 08:44; Status DC Rocuronium Al[place] (Zemuron) 100 mg STK-MED ONCE .ROUTE ; Start 05/22/18 at 08: 41; Stop 05/22/18 at 08:44; Status DC Midazolam HCl (Versed) 2 mg STK-MED ONCE .ROUTE ; Start 05/22/18 at 08:42; Stop 05/22/18 at 08:44; Status DC Fentanyl Citrate (Fentanyl 5ml Vial) 250 mcg STK-MED ONCE .ROUTE ; Start at 08:46; Stop 05/22/18 at 08:48; Status DC Ephedrine Sulfate (ePHEDrine PF IN SALINE SYRINGE) 50 mg STK-MED ONCE IV ; Start 05/22/18 at 08:47; Stop 05/22/18 at 08:48; Status DC Glycopyrrolate (Robinul) 1 mg STK-MED ONCE .ROUTE ; Start 05/22/18 at 08:47; Stop 05/22/18 at 08:49; Status DC Sodium Chloride 35 ml/Fentanyl Citrate 250 mcg/ Ropivacaine 10 ml/ Epidural Dosage Infused (Pha) 50 ml @ 0 mls/hr CONT PRN EPID SEE PROTOCOL TABLE Last administered on 05/24/18at 10:19; Start 05/22/18 at 09:30; Stop 05/26/18 at 13:09; Status DC Succinylcholine Chloride (Anectine) 200 mg STK-MED ONCE .ROUTE ; Start 05/22/18 at 09:45; Stop 05/22/18 at 09:47; Status DC Bupivacaine HCl (Sensorcaine Mpf 0.5%) 30 ml STK-MED ONCE .ROUTE ; Start at 10:53; Stop 05/22/18 at 10:56; Status DC Bupivacaine HCl (Sensorcaine-Mpf 0.25%) 10 ml STK-MED ONCE .ROUTE ; Start at 10:54; Stop 05/22/18 at 10:56; Status DC Rocuronium Al[place] (Zemuron) 100 mg STK-MED ONCE .ROUTE ; Start 05/22/18 at 11: 42; Stop 05/22/18 at 11:45; Status DC Propofol 20 ml @ As Directed STK-MED ONCE IV ; Start 05/22/18 at 11:43; Stop at 11:45; Status DC Phenylephrine HCl (PHENYLEPHRINE in 0.9% NACL PF) 1 mg STK-MED ONCE IV ; Start 05/22/18 at 11:43; Stop 05/22/18 at 11:45; Status DC Phenylephrine HCl (PHENYLEPHRINE in 0.9% NACL PF) 1 mg STK-MED ONCE IV ; Start 05/22/18 at 11:43; Stop 05/22/18 at 11:45; Status DC Cefazolin Sodium/ Dextrose (Ancef 2gm Premix) 2 gm STK-MED ONCE IV ; Start 05/22 at 08:00; Stop 05/22/18 at 13:23; Status DC Lidocaine HCl (Lidocaine Pf 2% Vial) 5 ml STK-MED ONCE .ROUTE ; Start 05/22/18 at 14:08; Stop 05/22/18 at 14:10; Status DC Propofol 100 ml @ As Directed STK-MED ONCE IV ; Start 05/22/18 at 14:36; Stop 05/22/18 at 14:38; Status DC Diphenhydramine HCl (Benadryl) 25 mg PRN Q6HRS PRN IV ITCHING; Start 05/22/18 at 14:45 Famotidine (Pepcid Vial) 20 mg BID IVP Last administered on 05/31/18at 08:33; Start 05/22/18 at 21:00; Stop 05/31/18 at 10:05; Status DC Info (Icu Electrolyte Protocol) 1 ea DAILY MC Last administered on 05/27/18at 09: 00; Start 05/23/18 at 09:00; Stop 05/28/18 at 09:32; Status DC Heparin Sodium (Porcine) (Heparin Sodium) 5,000 unit Q8HRS SQ Last administered on 05/28/18at 05:46; Start 05/22/18 at 22:00; Stop 05/28/18 at 09:28; Status DC Sodium Chloride (Normal Saline Flush) 3 ml QSHIFT PRN IV AFTER MEDS AND BLOOD DRAWS; Start 05/22/18 at 14:45 Oxycodone HCl (Roxicodone) 10 mg PRN Q4HRS PRN PO MODERATE PAIN, SEVERE PAIN Last administered on 05/23/18at 21:29; Start 05/22/18 at 14:45; Stop 05/28/18 at 08:57; Status DC Ketorolac Tromethamine (Toradol 15mg Vial) 15 mg PRN Q6HRS PRN IV PAIN Last administered on 05/23/18at 18:59; Start 05/22/18 at 14:45; Stop 05/24/18 at 06:31 ; Status DC Acetaminophen (Tylenol) 650 mg PRN Q6HRS PRN PO Headaches, Temp > 101.5F Last administered on 05/24/18 16:11; Start 05/22/18 at 14:45; Stop 05/28/18 at 13:41; Status DC Gabapentin (Neurontin) 600 mg Q8HRS PO Last administered on 05/23/18 21:27; Start 05/22/18 at 22:00; Stop 05/24/18 at 11:16; Status DC Naloxone HCl (Narcan) 0.4 mg PRN Q2MIN PRN IV SEE INSTRUCTIONS Last administered on 05/24/18 04:41; Start 05/22/18 at 14:45 Morphine Sulfate (Morphine Sulfate) 2 mg PRN Q1HR PRN IV PAIN; Start 05/22/18 at 14:45; Status UNV Ondansetron HCl (Zofran) 4 mg PRN Q6HRS PRN IV NAUESA, 1ST CHOICE Last administered on 05/23/18 14:00; Start 05/22/18 at 14:45 Prochlorperazine Edisylate (Compazine) 5 mg PRN Q6HRS PRN IV N/V, 2nd Choice, MR X1; Start 05/22/18 at 14:45 Metoclopramide HCl (Reglan Vial) 5 mg PRN Q6HRS PRN IV Nausea/Vomiting, 3rd Choice Last administered on 05/24/18 16:30; Start 05/22/18 at 14:45 Senna/Docusate Sodium (Senna Plus) 1 tab BID PO Last administered on 05/31/18 08:32; Start 05/22/18 at 21:00; Stop 05/31/18 at 15:47; Status DC Docusate Sodium (Colace) 100 mg BID PO Last administered on 05/31/18 08:33; Start 05/22/18 at 21:00; Stop 05/31/18 at 15:47; Status DC Cefazolin Sodium/ Dextrose 50 ml @ 100 mls/hr Q6H IV Last administered on 05/23 04:35; Start 05/22/18 at 16:45; Stop 05/23/18 at 05:14; Status DC Metoprolol Tartrate (Lopressor) 25 mg BID PO Last administered on 06/01/18 09: 01; Start 05/22/18 at 21:00 Hydralazine HCl (Apresoline Inj) 25 mg PRN Q2HRS PRN IVP ELEVATED BP, SEE COMMENTS; Start 05/22/18 at 17:00 Insulin Human Regular (HumuLIN R VIAL) 10 unit 1X ONCE IV Last administered on 05/24/18at 06:39; Start 05/24/18 at 07:00; Stop 05/24/18 at 07:01; Status DC Dextrose (Dextrose 50%-Water Syringe) 25 gm 1X ONCE IV Last administered on 05/24/18at 06:41; Start 05/24/18 at 07:00; Stop 05/24/18 at 07:01; Status DC Albuterol Sulfate (Ventolin Neb Soln) 2.5 mg PRN Q4HRS PRN NEB SHORTNESS OF BREATH; Start 05/24/18 at 11:15 Sodium Chloride 1,000 ml @ 80 mls/hr [id number] IV Last administered on 05/27/18at 23:16; Start 05/24/18 at 14:30; Stop 05/28/18 at 09:28; Status DC Multivitamins 10 ml/Thiamine HCl 100 mg/Folic Acid 1 mg/Sodium Chloride 1,011.2 ml @ 80 mls/hr DAILY IV Last administered on 05/28/18at 09:31; Start 05/24/18 at 15:30; Stop 05/28/18 at 10:14; Status DC Piperacillin Sod/ Tazobactam Sod 4.5 gm/Sodium Chloride 100 ml @ 200 mls/hr Q6HRS IV Last administered on 05/28/18at 12:56; Start 05/24/18 at 18:00; Stop 05/28 at 13:59; Status DC Ketorolac Tromethamine (Toradol 15mg Vial) 15 mg PRN Q6HRS PRN IV PAIN Last administered on 05/26/18at 18:23; Start 05/24/18 at 17:15; Stop 05/29/18 at 17:14; Status DC Gabapentin (Neurontin) 600 mg TID PO Last administered on 06/01/18at 09:02; Start 05/24/18 at 21:00 Neostigmine Methylsulfate (Bloxiverz) 1.5 mg 1X ONCE IV Last administered on at 17:22; Start 05/25/18 at 17:15; Stop 05/25/18 at 17:16; Status DC Atropine Sulfate (ATROPINE 1mg SYRINGE) 1 mg PRN 1X PRN IV SYMPTOMATIC BRADYCARDIA; Start 05/25/18 at 17:15 Propofol 20 ml @ As Directed STK-MED ONCE IV ; Start 05/26/18 at 09:10; Stop 05/26 at 09:12; Status DC Propofol 0 ml @ As Directed STK-MED ONCE IV ; Start 05/26/18 at 09:10; Stop at 09:12; Status DC Propofol 20 ml @ As Directed STK-MED ONCE IV ; Start 05/26/18 at 10:57; Stop 05/26 at 11:00; Status DC Neostigmine Methylsulfate (Bloxiverz) 2 mg 1X ONCE IV Last administered on 05/26at 11:15; Start 05/26/18 at 11:15; Stop 05/26/18 at 11:16; Status DC Potassium Chloride/Water 50 ml @ 50 mls/hr 1X ONCE IV Last administered on 05/26at 17:12; Start 05/26/18 at 17:00; Stop 05/26/18 at 17:59; Status DC Potassium Chloride/Water 50 ml @ 50 mls/hr Q1H IV Last administered on at 11:12; Start 05/27/18 at 11:30; Stop 05/27/18 at 13:29; Status DC Bisacodyl (Dulcolax Supp) 10 mg PRN DAILY PRN VA CONSTIPATION Last administered on 05/27/18at 15:23; Start 05/27/18 at 14:45 Oxycodone HCl (Roxicodone) 5 mg PRN Q4HRS PRN PO MODERATE PAIN, SEVERE PAIN; Start 05/28/18 at 09:00; Stop 05/28/18 at 13:38; Status DC Bisacodyl (Dulcolax Supp) 10 mg 1X ONCE VA Last administered on 05/28/18at 12:04 ; Start 05/28/18 at 09:00; Stop 05/28/18 at 09:06; Status DC Apixaban (Eliquis) 5 mg BID PO Last administered on 06/01/18at 09:01; Start at 21:00 Info (Anti-Coagulation Monitoring By Pharmacy) 1 each PRN DAILY PRN MC SEE COMMENTS Last administered on 06/01/18 09:13; Start 05/28/18 at 09:45 Multivitamins (Thera M Plus) 1 tab DAILY PO Last administered on 06/01/18 09:02 ; Start 05/29/18 at 09:00 Folic Acid (Folic Acid) 1 mg DAILY PO Last administered on 06/01/18 09:02; Start 05/29/18 at 09:00 Thiamine Mononitrate (Vitamin B-1) 100 mg DAILY PO Last administered on 09:02; Start 05/29/18 at 09:00 Lactobacillus Rhamnosus (Culturelle) 1 cap BID PO Last administered on 09:02; Start 05/28/18 at 21:00 Acetaminophen (Tylenol) 500 mg PRN Q6HRS PRN PO MILD PAIN / TEMP; Start at 13:45 Albuterol/ Ipratropium (Duoneb) 3 ml RTQID NEB Last administered on 05/30/18 20 :36; Start 05/28/18 at 16:00; Stop 05/31/18 at 15:13; Status DC Albuterol/ Ipratropium (Duoneb) 3 ml 1X ONCE NEB Last administered on 14:07; Start 05/28/18 at 14:00; Stop 05/28/18 at 14:01; Status DC Vancomycin HCl 1.75 gm/Sodium Chloride 500 ml @ 250 mls/hr Q12H IV ; Start 05/28 at 14:00; Status UNV Vancomycin HCl (Vanco Per Pharmacy) 1 each PRN DAILY PRN MC SEE COMMENTS Last administered on 05/30/18 04:10; Start 05/28/18 at 14:15; Stop 05/30/18 at 09:35; Status DC Vancomycin HCl 2 gm/Sodium Chloride 500 ml @ 250 mls/hr ONCE ONCE IV Last administered on 05/28/18 16:05; Start 05/28/18 at 14:15; Stop 05/28/18 at 16:14; Status DC Vancomycin HCl 2 gm/Sodium Chloride 500 ml @ 250 mls/hr Q12H IV Last administered on 2/7/19at 03:59; Start 05/29/18 at 04:00; Stop 05/30/18 at 08:24; Status DC Vancomycin HCl (Vancomycin Trough Level) 1 each 1X ONCE MC Last administered on 05/30/18at 03:30; Start 05/30/18 at 03:30; Stop 05/30/18 at 03:31; Status DC Bisacodyl (Dulcolax Supp) 10 mg 1X ONCE VA ; Start 05/29/18 at 11:00; Stop at 11:01; Status DC Iohexol (Omnipaque 240 Mg/ml) 30 ml 1X ONCE PO ; Start 05/29/18 at 11:15; Stop 05/29/18 at 11:16; Status DC Info (CONTRAST GIVEN -- Rx MONITORING) 1 each PRN DAILY PRN MC SEE COMMENTS; Start 05/29/18 at 11:15; Stop 05/31/18 at 11:14; Status DC Neostigmine Methylsulfate (Bloxiverz) 2 mg 1X ONCE IV Last administered on 05/29at 15:32; Start 05/29/18 at 14:15; Stop 05/29/18 at 14:16; Status DC Polyethylene Glycol (miraLAX PACKET) 17 gm DAILY PO Last administered on at 09:01; Start 05/30/18 at 17:00 Famotidine (Pepcid) 20 mg BID PO Last administered on 06/01/18at 09:02; Start 05/31/18 at 21:00 Active Scripts Active Reported Eliquis (Apixaban) 5 Mg Tablet 5 Mg PO BID Resume tomomorrow 04/05 Amlodipine Besylate 10 Mg Tablet 10 Mg PO DAILY Lisinopril-Hctz 20-12.5 Mg Tab (Lisinopril/Hydrochlorothiazide) 1 Each Tablet 1 Tab PO DAILY Allopurinol 100 Mg Tablet 100 Mg PO BID Vitals/I & O Vital Sign - Last 24 Hours 05/31/18 05/31/18 05/31/18 05/31/18 15:00 19:40 19:58 20:26 Temp 97.9 98.2 97.9 98.2 Pulse 68 67 67 Resp 18 21 B/P (MAP) 133/53 (79) 147/72 (97) 147/72 Pulse Ox 97 97 O2 Delivery Room Air Room Air Room Air 05/31/18 06/01/18 06/01/18 06/01/18 23:00 02:27 07:00 08:00 Temp 98.1 97.8 97.8 98.1 97.8 97.8 Pulse 59 64 63 Resp 22 20 20 B/P (MAP) 132/69 (90) 131/59 (83) 134/63 (86) Pulse Ox 96 94 96 O2 Delivery Room Air Room Air Room Air Room Air 06/01/18 06/01/18 09:01 11:00 Temp 97.7 97.7 Pulse 71 60 Resp 20 B/P (MAP) 134/63 126/53 (77) Pulse Ox 97 O2 Delivery Room Air Intake and Output 05/31/18 05/31/18 06/01/18 15:01 23:01 07:01 Intake Total 300 ml 700 ml 60 ml Balance 300 ml 700 ml 60 ml Problem List [id number], increase activity and diet as tolerated DILLON FREEDMAN MD Jun 01, 2018 13:03
--- NOTE | 2018-06-01 14:38 | PDOC ---
Progress Note Subjective Subjective No pulmonary issues. CXR some left lung aeration improvement. Tolerating soft diet, had BMs today. Still mildy distended with occasional RLQ discomfort ROS ROS No nausea No vomiting No pain No rash Vital Sign Vital Signs Vital Signs Date Time Temp Pulse Resp B/P (MAP) Pulse Ox O2 Delivery O2 Flow Rate FiO2 06/01/18 11:00 97.7 60 20 126/53 (77) 97 Room Air 97.7 05/31/18 08:00 2.0 Physical Exam PHYSICAL EXAM GENERAL: Alert and oriented gentleman, not in any distress. VITAL SIGNS: Stable, afebrile. HEENT: NAD. NECK: Supple, no JVP, no lymphadenopathy. LUNGS: Clear. Decreased breath sounds on the left. The incisions are unremarkable for any infection. ABDOMEN: Distended, tympanic. No tenderness, no rebound or guarding, no organomegaly appreciated. EXTREMITIES: No edema or cyanosis. SKIN: Unremarkable. NEUROLOGIC: The patient is neurologically alert, awake and appropriate. No focal neurologic deficit. Objective Assessment POD#9, s/p left upper lobectomy and mediastinal lymphadenectomy No pulmonary issues. CXR some left lung aeration improvement. Tolerating soft diet, had BMs today. 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 Will start adjuvant chemotherapy with Cisplatin and Navelbine in 4 weeks Plan Plan of Care Advance to regular diet Home Sunday-Sunday if tolerating regular diet Will consider obtaining BE prior to discharge just to rule out colonic pathology. NAMRATA WYATT MD Jun 01, 2018 14:38
[2018-06-01 15:00] VITALS: BP 128/51
[2018-06-01 19:30] VITALS: BP 152/62
[2018-06-01 23:08] VITALS: BP 143/57
[2018-06-02 02:45] VITALS: BP 114/46
[2018-06-02 07:45] VITALS: BP 121/51
[2018-06-02] MEDS: FOLIC ACID 1 MG TABLET. PO SCH (08:10)
[2018-06-02] MEDS: GABAPENTIN 300 MG CAPSULE. PO SCH ×3 (08:10→21:00)
[2018-06-02] MEDS: POLYETHYLENE GLYCOL 3350 17 GM PACKET. PO SCH (08:10)
[2018-06-02] MEDS: LACTOBACILLUS RHAMNOSUS GG 1 CAPSULE. PO SCH ×2 (08:10→21:00)
[2018-06-02] MEDS: APIXABAN 5 MG TABLET. PO SCH ×2 (08:10→21:01)
[2018-06-02] MEDS: FAMOTIDINE 20 MG TABLET. PO SCH ×2 (08:10→21:00)
[2018-06-02] MEDS: THIAMINE 100 MG TABLET. PO SCH (08:10)
[2018-06-02] MEDS: MULTIVITAMIN with MINERAL TABLET. PO SCH (08:10)
[2018-06-02] MEDS: METOPROLOL TART IMMED RELEASE 25 MG TABLET. PO SCH ×2 (08:11→21:01)
--- NOTE | 2018-06-02 08:39 | RAD ---
Indication:Status post left lower lobectomy TECHNIQUE:Portable AP chest X-ray COMPARISON: 06/01/2018 FINDINGS: Heart is normal in size. Loss of left lung volume. Hazy opacity in the left lung base with blunting of left costophrenic angle. Right lung is clear. Interval improvement in left apical aeration. Interval removal of right-sided PICC line. Visualized bony thorax is within normal limits. No pneumothorax. IMPRESSION: 1. Interval improved aeration in left lung apex. 2. Trace left pleural effusion. Electronically signed by: Leodna Villegas DO (06/02/2018 8:34 AM) [facility]
--- NOTE | 2018-06-02 11:06 | PDOC ---
PULMONARY PROGRESS NOTES Subjective no soa had BM regular now Vitals Vital Signs Date Time Temp Pulse Resp B/P (MAP) Pulse Ox O2 Delivery O2 Flow Rate FiO2 06/02/18 08:11 58 121/51 06/02/18 07:45 97.8 16 96 Room Air 97.8 06/01/18 19:32 2.0 General: Alert, No acute distress Lungs: Other (decrease left) Cardiovascular: S1, S2 Abdomen: Soft, Other (DISTENDED) Neuro Exam: Alert Extremities: Other (EDEMA) Skin: Warm Medications Active Scripts Medications Dose Route/Sig Max Daily Dose Days Date Category Dose Instructions Eliquis (Apixaban) 5 Mg Tablet 5 Mg PO BID 12/05/17 Reported Resume tomomorrow 04/05 Amlodipine Besylate 10 Mg Tablet 10 Mg PO DAILY 12/01/17 Reported Lisinopril-Hctz 20-12.5 Mg Tab (Lisinopril/Hydrochlorothiazide) 1 Each Tablet 1 Tab PO DAILY 12/01/17 Reported Allopurinol 100 Mg Tablet 100 Mg PO BID 12/01/17 Reported Comments CXR 06/02 improved aeration Left apex Impression . IMPRESSION: 1. 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 Status post left posterior lateral thoracotomy, left upper lobectomy, mediastinal lymphadenopathy. 3. Tobacco dependence, in remission, quit 14 years ago. 4. 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 5. HYPERCAPNIA, resolved 6 METABOLIC ENCEPHALOPATHY , Resolved 7. SUBCUTANEOUS EMPHYSEMA, improved 8. PSEUDOOBSTRUCTION COLON S/P COLONOSCOPY FOR DECOMPRESSION/ improving Diagnosis: A. Lung lobe, left upper lobectomy: - ADENOSQUAMOUS CARCINOMA, INVASIVE, MODERATELY TO POORLY DIFFERENTIATED, FORMING A CAVITARY LUNG MASS MEASURING 6.9 CM IN GREATEST DIMENSION. SEE SYNOPTIC REPORT. - METASTATIC ADENOCARCINOMA INVOLVING ONE OF FOUR PERIBRONCHIAL LYMPH NODES (1/4). - Focal tumor invasion of visceral pleura. - Focal tumor vascular invasion within neoplasm. - Bronchial margin of resection negative for tumor. - Pulmonary vascular margins of resection negative for tumor. - Obstructive lipoid pneumonia of lung, focal. . B. Segments of lymph node and fibroadipose tissue, level 9 mediastinal lymph node: - Negative for tumor. . C. Segments of lymph node and fibroadipose tissue, level 10 mediastinal lymph node: - METASTATIC ADENOCARCINOMA. . D. Segment of lymph node and fibroadipose tissue, level 6 mediastinal lymph node: - METASTATIC ADENOCARCINOMA. . E. Segments of lymph node and fibroadipose tissue, level 5 mediastinal lymph node: - Negative for tumor. . F. Segments of lymph node and fibroadipose tissue, level 11 mediastinal lymph node: - Negative for tumor. Plan . PULMONARY STATUS IMPROVED INCREASE PT ADVANCE ORAL DIET PER GI/ CT ABD REVIEWED WILL NEED ADJUVANT CHEMO IN FUTURE SLEEP STUDY OP LIFE LONG ELIQUIS OFF NARCOTICS FOLLOW STAPH COAG NEG , LIKELY CONTAMINATION /ID FOLLOWING D/W RN/ LIKELY DC HOME IN AM F/U WITH ME IN JUNE MATT HALL MD Jun 02, 2018 11:06
[2018-06-02] MEDS: ANTI-COAG MONITOR BY PHARMACY. MC PRN (11:25)
[2018-06-02 11:40] VITALS: BP 122/47
--- NOTE | 2018-06-02 14:03 | PDOC ---
Progress Note Subjective Subjective No pulmonary issues. CXR left lung aeration improvement. Tolerating regular diet , had BMs today. ROS ROS No nausea No vomiting No pain No rash Vital Sign Vital Signs Vital Signs Date Time Temp Pulse Resp B/P (MAP) Pulse Ox O2 Delivery O2 Flow Rate FiO2 06/02/18 11:40 98.1 57 18 122/47 (72) 95 Room Air 98.1 06/01/18 19:32 2.0 Physical Exam PHYSICAL EXAM GENERAL: Alert and oriented gentleman, not in any distress. VITAL SIGNS: Stable, afebrile. HEENT: NAD. NECK: Supple, no JVP, no lymphadenopathy. LUNGS: Clear. Decreased breath sounds on the left. The incisions are unremarkable for any infection. ABDOMEN: Distended, tympanic. No tenderness, no rebound or guarding, no organomegaly appreciated. EXTREMITIES: No edema or cyanosis. SKIN: Unremarkable. NEUROLOGIC: The patient is neurologically alert, awake and appropriate. No focal neurologic deficit. Objective Assessment POD#10, s/p left upper lobectomy and mediastinal lymphadenectomy No pulmonary issues. CXR some left lung aeration improvement. Tolerating regular diet, had BMs today. 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 Will start adjuvant chemotherapy with Cisplatin and Navelbine in 4 weeks Plan Plan of Care D/c home likely tomorrow NAMRATA WYATT MD Jun 02, 2018 14:03
--- NOTE | 2018-06-02 14:36 | PDOC ---
G I PROGRESS NOTE Reason for Follow-up Obstipation s/o lung cancer surgery Subjective Feeling better Physical Exam Lungs decreased BS CV S1 S2 ABD +BS, soft, mildly distended Review of Relevant I have reviewed the following items florencio (where applicable) has been applied. Labs Microbiology 05/26/18 Blood Culture - Final, Complete NO GROWTH AFTER 5 DAYS Medications Current Medications Ondansetron HCl (Zofran) 4 mg PRN Q6HRS PRN IV NAUSEA/VOMITING; Start 05/22/18 at 07:00; Stop 05/22/18 at 14:47; Status DC Fentanyl Citrate (Fentanyl 2ml Vial) 25 mcg PRN Q5MIN PRN IV MILD PAIN; Start 05/22/18 at 07:00; Stop 05/23/18 at 06:59; Status DC Fentanyl Citrate (Fentanyl 2ml Vial) 50 mcg PRN Q5MIN PRN IV MODERATE TO SEVERE PAIN; Start 05/22/18 at 07:00; Stop 05/23/18 at 06:59; Status DC Morphine Sulfate (Morphine Sulfate) 1 mg PRN Q10MIN PRN IV SEVERE PAIN; Start 05/22/18 at 07:00; Stop 05/23/18 at 06:59; Status DC Ringer's Solution 1,000 ml @ 30 mls/hr Q24H IV Last administered on 05/22/18at 08:00; Start 05/22/18 at 07:00; Stop 05/22/18 at 18:59; Status DC Lidocaine HCl (Xylocaine-Mpf 1% 2ml Vial) 2 ml PRN 1X PRN ID IV START; Start at 07:00; Stop 05/23/18 at 06:59; Status DC Hydromorphone HCl (Dilaudid) 0.5 mg PRN Q10MIN PRN IV SEV PAIN, Second choice; Start 05/22/18 at 07:00; Stop 05/23/18 at 06:59; Status DC Prochlorperazine Edisylate (Compazine) 5 mg PACU PRN PRN IV NAUSEA, MRX1; Start 05/22/18 at 07:00; Stop 05/23/18 at 06:59; Status DC Cefazolin Sodium 1 gm/Sodium Chloride 500 ml @ 500 mls/hr 1X ONCE IRR Last administered on 05/22/18at 09:56; Start 05/22/18 at 06:00; Stop 05/22/18 at 06:59 ; Status DC Cefazolin Sodium/ Dextrose 50 ml @ 100 mls/hr 1X PREOP PRN IV PRIOR TO PROCEDURE; Start 05/22/18 at 06:00; Stop 05/22/18 at 18:00; Status DC Cellulose (Surgicel Hemostat 4x8) 1 each STK-MED ONCE .ROUTE Last administered on 05/22/18at 13:24; Start 05/22/18 at 07:38; Stop 05/22/18 at 07:41; Status DC Cellulose (Surgicel Hemostat 4x8) 1 each STK-MED ONCE .ROUTE ; Start 05/22/18 at 07:38; Stop 05/22/18 at 07:41; Status DC Dexamethasone Sodium Phosphate (Decadron) 20 mg STK-MED ONCE .ROUTE ; Start at 08:41; Stop 05/22/18 at 08:43; Status DC Lidocaine HCl (Lidocaine Pf 2% Vial) 5 ml STK-MED ONCE .ROUTE ; Start 05/22/18 at 08:41; Stop 05/22/18 at 08:43; Status DC Propofol 20 ml @ As Directed STK-MED ONCE IV ; Start 05/22/18 at 08:41; Stop at 08:44; Status DC Ondansetron HCl (Zofran) 4 mg STK-MED ONCE .ROUTE ; Start 05/22/18 at 08:41; Stop 05/22/18 at 08:44; Status DC Rocuronium [place] (Zemuron) 100 mg STK-MED ONCE .ROUTE ; Start 05/22/18 at 08: 41; Stop 05/22/18 at 08:44; Status DC Midazolam HCl (Versed) 2 mg STK-MED ONCE .ROUTE ; Start 05/22/18 at 08:42; Stop 05/22/18 at 08:44; Status DC Fentanyl Citrate (Fentanyl 5ml Vial) 250 mcg STK-MED ONCE .ROUTE ; Start at 08:46; Stop 05/22/18 at 08:48; Status DC Ephedrine Sulfate (ePHEDrine PF IN SALINE SYRINGE) 50 mg STK-MED ONCE IV ; Start 05/22/18 at 08:47; Stop 05/22/18 at 08:48; Status DC Glycopyrrolate (Robinul) 1 mg STK-MED ONCE .ROUTE ; Start 05/22/18 at 08:47; Stop 05/22/18 at 08:49; Status DC Sodium Chloride 35 ml/Fentanyl Citrate 250 mcg/ Ropivacaine 10 ml/ Epidural Dosage Infused (Pha) 50 ml @ 0 mls/hr CONT PRN EPID SEE PROTOCOL TABLE Last administered on 05/24/18at 10:19; Start 05/22/18 at 09:30; Stop 05/26/18 at 13:09; Status DC Succinylcholine Chloride (Anectine) 200 mg STK-MED ONCE .ROUTE ; Start 05/22/18 at 09:45; Stop 05/22/18 at 09:47; Status DC Bupivacaine HCl (Sensorcaine Mpf 0.5%) 30 ml STK-MED ONCE .ROUTE ; Start at 10:53; Stop 05/22/18 at 10:56; Status DC Bupivacaine HCl (Sensorcaine-Mpf 0.25%) 10 ml STK-MED ONCE .ROUTE ; Start at 10:54; Stop 05/22/18 at 10:56; Status DC Rocuronium [place] (Zemuron) 100 mg STK-MED ONCE .ROUTE ; Start 05/22/18 at 11: 42; Stop 05/22/18 at 11:45; Status DC Propofol 20 ml @ As Directed STK-MED ONCE IV ; Start 05/22/18 at 11:43; Stop at 11:45; Status DC Phenylephrine HCl (PHENYLEPHRINE in 0.9% NACL PF) 1 mg STK-MED ONCE IV ; Start 05/22/18 at 11:43; Stop 05/22/18 at 11:45; Status DC Phenylephrine HCl (PHENYLEPHRINE in 0.9% NACL PF) 1 mg STK-MED ONCE IV ; Start 05/22/18 at 11:43; Stop 05/22/18 at 11:45; Status DC Cefazolin Sodium/ Dextrose (Ancef 2gm Premix) 2 gm STK-MED ONCE IV ; Start 05/22 at 08:00; Stop 05/22/18 at 13:23; Status DC Lidocaine HCl (Lidocaine Pf 2% Vial) 5 ml STK-MED ONCE .ROUTE ; Start 05/22/18 at 14:08; Stop 05/22/18 at 14:10; Status DC Propofol 100 ml @ As Directed STK-MED ONCE IV ; Start 05/22/18 at 14:36; Stop 05/22/18 at 14:38; Status DC Diphenhydramine HCl (Benadryl) 25 mg PRN Q6HRS PRN IV ITCHING; Start 05/22/18 at 14:45 Famotidine (Pepcid Vial) 20 mg BID IVP Last administered on 05/31/18at 08:33; Start 05/22/18 at 21:00; Stop 05/31/18 at 10:05; Status DC Info (Icu Electrolyte Protocol) 1 ea DAILY MC Last administered on 05/27/18at 09: 00; Start 05/23/18 at 09:00; Stop 05/28/18 at 09:32; Status DC Heparin Sodium (Porcine) (Heparin Sodium) 5,000 unit Q8HRS SQ Last administered on 05/28/18at 05:46; Start 05/22/18 at 22:00; Stop 05/28/18 at 09:28; Status DC Sodium Chloride (Normal Saline Flush) 3 ml QSHIFT PRN IV AFTER MEDS AND BLOOD DRAWS; Start 05/22/18 at 14:45 Oxycodone HCl (Roxicodone) 10 mg PRN Q4HRS PRN PO MODERATE PAIN, SEVERE PAIN Last administered on 05/23/18at 21:29; Start 05/22/18 at 14:45; Stop 05/28/18 at 08:57; Status DC Ketorolac Tromethamine (Toradol 15mg Vial) 15 mg PRN Q6HRS PRN IV PAIN Last administered on 05/23/18at 18:59; Start 05/22/18 at 14:45; Stop 05/24/18 at 06:31 ; Status DC Acetaminophen (Tylenol) 650 mg PRN Q6HRS PRN PO Headaches, Temp > 101.5F Last administered on 05/24/18at 16:11; Start 05/22/18 at 14:45; Stop 05/28/18 at 13:41; Status DC Gabapentin (Neurontin) 600 mg Q8HRS PO Last administered on 05/23/18at 21:27; Start 05/22/18 at 22:00; Stop 05/24/18 at 11:16; Status DC Naloxone HCl (Narcan) 0.4 mg PRN Q2MIN PRN IV SEE INSTRUCTIONS Last administered on 05/24/18at 04:41; Start 05/22/18 at 14:45 Morphine Sulfate (Morphine Sulfate) 2 mg PRN Q1HR PRN IV PAIN; Start 05/22/18 at 14:45; Status UNV Ondansetron HCl (Zofran) 4 mg PRN Q6HRS PRN IV NAUESA, 1ST CHOICE Last administered on 05/23/18at 14:00; Start 05/22/18 at 14:45 Prochlorperazine Edisylate (Compazine) 5 mg PRN Q6HRS PRN IV N/V, 2nd Choice, MR X1; Start 05/22/18 at 14:45 Metoclopramide HCl (Reglan Vial) 5 mg PRN Q6HRS PRN IV Nausea/Vomiting, 3rd Choice Last administered on 05/24/18at 16:30; Start 05/22/18 at 14:45 Senna/Docusate Sodium (Senna Plus) 1 tab BID PO Last administered on 05/31/18at 08:32; Start 05/22/18 at 21:00; Stop 05/31/18 at 15:47; Status DC Docusate Sodium (Colace) 100 mg BID PO Last administered on 05/31/18at 08:33; Start 05/22/18 at 21:00; Stop 05/31/18 at 15:47; Status DC Cefazolin Sodium/ Dextrose 50 ml @ 100 mls/hr Q6H IV Last administered on 05/23at 04:35; Start 05/22/18 at 16:45; Stop 05/23/18 at 05:14; Status DC Metoprolol Tartrate (Lopressor) 25 mg BID PO Last administered on 06/02/18at 08: 11; Start 05/22/18 at 21:00 Hydralazine HCl (Apresoline Inj) 25 mg PRN Q2HRS PRN IVP ELEVATED BP, SEE COMMENTS; Start 05/22/18 at 17:00 Insulin Human Regular (HumuLIN R VIAL) 10 unit 1X ONCE IV Last administered on 05/24/18at 06:39; Start 05/24/18 at 07:00; Stop 05/24/18 at 07:01; Status DC Dextrose (Dextrose 50%-Water Syringe) 25 gm 1X ONCE IV Last administered on 05/24/18at 06:41; Start 05/24/18 at 07:00; Stop 05/24/18 at 07:01; Status DC Albuterol Sulfate (Ventolin Neb Soln) 2.5 mg PRN Q4HRS PRN NEB SHORTNESS OF BREATH; Start 05/24/18 at 11:15 Sodium Chloride 1,000 ml @ 80 mls/hr [id number] IV Last administered on 05/27/18at 23:16; Start 05/24/18 at 14:30; Stop 05/28/18 at 09:28; Status DC Multivitamins 10 ml/Thiamine HCl 100 mg/Folic Acid 1 mg/Sodium Chloride 1,011.2 ml @ 80 mls/hr DAILY IV Last administered on 05/28/18at 09:31; Start 05/24/18 at 15:30; Stop 05/28/18 at 10:14; Status DC Piperacillin Sod/ Tazobactam Sod 4.5 gm/Sodium Chloride 100 ml @ 200 mls/hr Q6HRS IV Last administered on 05/28/18at 12:56; Start 05/24/18 at 18:00; Stop 05/28 at 13:59; Status DC Ketorolac Tromethamine (Toradol 15mg Vial) 15 mg PRN Q6HRS PRN IV PAIN Last administered on 05/26/18at 18:23; Start 05/24/18 at 17:15; Stop 05/29/18 at 17:14; Status DC Gabapentin (Neurontin) 600 mg TID PO Last administered on 06/02/18at 08:10; Start 05/24/18 at 21:00 Neostigmine Methylsulfate (Bloxiverz) 1.5 mg 1X ONCE IV Last administered on at 17:22; Start 05/25/18 at 17:15; Stop 05/25/18 at 17:16; Status DC Atropine Sulfate (ATROPINE 1mg SYRINGE) 1 mg PRN 1X PRN IV SYMPTOMATIC BRADYCARDIA; Start 05/25/18 at 17:15; Stop 06/02/18 at 11:21; Status DC Propofol 20 ml @ As Directed STK-MED ONCE IV ; Start 05/26/18 at 09:10; Stop 05/26 at 09:12; Status DC Propofol 0 ml @ As Directed STK-MED ONCE IV ; Start 05/26/18 at 09:10; Stop at 09:12; Status DC Propofol 20 ml @ As Directed STK-MED ONCE IV ; Start 05/26/18 at 10:57; Stop 05/26 at 11:00; Status DC Neostigmine Methylsulfate (Bloxiverz) 2 mg 1X ONCE IV Last administered on 05/26at 11:15; Start 05/26/18 at 11:15; Stop 05/26/18 at 11:16; Status DC Potassium Chloride/Water 50 ml @ 50 mls/hr 1X ONCE IV Last administered on 05/26at 17:12; Start 05/26/18 at 17:00; Stop 05/26/18 at 17:59; Status DC Potassium Chloride/Water 50 ml @ 50 mls/hr Q1H IV Last administered on at 11:12; Start 05/27/18 at 11:30; Stop 05/27/18 at 13:29; Status DC Bisacodyl (Dulcolax Supp) 10 mg PRN DAILY PRN VA CONSTIPATION Last administered on 05/27/18at 15:23; Start 05/27/18 at 14:45 Oxycodone HCl (Roxicodone) 5 mg PRN Q4HRS PRN PO MODERATE PAIN, SEVERE PAIN; Start 05/28/18 at 09:00; Stop 05/28/18 at 13:38; Status DC Bisacodyl (Dulcolax Supp) 10 mg 1X ONCE VA Last administered on 05/28/18at 12:04 ; Start 05/28/18 at 09:00; Stop 05/28/18 at 09:06; Status DC Apixaban (Eliquis) 5 mg BID PO Last administered on 06/02/18at 08:10; Start 05/28 at 21:00 Info (Anti-Coagulation Monitoring By Pharmacy) 1 each PRN DAILY PRN MC SEE COMMENTS Last administered on 06/02/18at 11:25; Start 05/28/18 at 09:45 Multivitamins (Thera M Plus) 1 tab DAILY PO Last administered on 06/02/18 08: 10; Start 05/29/18 at 09:00 Folic Acid (Folic Acid) 1 mg DAILY PO Last administered on 06/02/18 08:10; Start 05/29/18 at 09:00 Thiamine Mononitrate (Vitamin B-1) 100 mg DAILY PO Last administered on 08:10; Start 05/29/18 at 09:00 Lactobacillus Rhamnosus (Culturelle) 1 cap BID PO Last administered on 08:10; Start 05/28/18 at 21:00 Acetaminophen (Tylenol) 500 mg PRN Q6HRS PRN PO MILD PAIN / TEMP; Start at 13:45 Albuterol/ Ipratropium (Duoneb) 3 ml RTQID NEB Last administered on 05/30/18 20 :36; Start 05/28/18 at 16:00; Stop 05/31/18 at 15:13; Status DC Albuterol/ Ipratropium (Duoneb) 3 ml 1X ONCE NEB Last administered on at 14:07; Start 05/28/18 at 14:00; Stop 05/28/18 at 14:01; Status DC Vancomycin HCl 1.75 gm/Sodium Chloride 500 ml @ 250 mls/hr Q12H IV ; Start 05/28 at 14:00; Status UNV Vancomycin HCl (Vanco Per Pharmacy) 1 each PRN DAILY PRN MC SEE COMMENTS Last administered on 05/30/18 04:10; Start 05/28/18 at 14:15; Stop 05/30/18 at 09:35; Status DC Vancomycin HCl 2 gm/Sodium Chloride 500 ml @ 250 mls/hr ONCE ONCE IV Last administered on 05/28/18 16:05; Start 05/28/18 at 14:15; Stop 05/28/18 at 16:14; Status DC Vancomycin HCl 2 gm/Sodium Chloride 500 ml @ 250 mls/hr Q12H IV Last administered on 05/30/18at 03:59; Start 05/29/18 at 04:00; Stop 05/30/18 at 08:24; Status DC Vancomycin HCl (Vancomycin Trough Level) 1 each 1X ONCE MC Last administered on 05/30/18at 03:30; Start 05/30/18 at 03:30; Stop 05/30/18 at 03:31; Status DC Bisacodyl (Dulcolax Supp) 10 mg 1X ONCE VA ; Start 05/29/18 at 11:00; Stop at 11:01; Status DC Iohexol (Omnipaque 240 Mg/ml) 30 ml 1X ONCE PO ; Start 05/29/18 at 11:15; Stop 05/29/18 at 11:16; Status DC Info (CONTRAST GIVEN -- Rx MONITORING) 1 each PRN DAILY PRN MC SEE COMMENTS; Start 05/29/18 at 11:15; Stop 05/31/18 at 11:14; Status DC Neostigmine Methylsulfate (Bloxiverz) 2 mg 1X ONCE IV Last administered on 05/29at 15:32; Start 05/29/18 at 14:15; Stop 05/29/18 at 14:16; Status DC Polyethylene Glycol (miraLAX PACKET) 17 gm DAILY PO Last administered on at 08:10; Start 05/30/18 at 17:00 Famotidine (Pepcid) 20 mg BID PO Last administered on 06/02/18at 08:10; Start at 21:00 Active Scripts Active Reported Eliquis (Apixaban) 5 Mg Tablet 5 Mg PO BID Resume tomomorrow 04/05 Amlodipine Besylate 10 Mg Tablet 10 Mg PO DAILY Lisinopril-Hctz 20-12.5 Mg Tab (Lisinopril/Hydrochlorothiazide) 1 Each Tablet 1 Tab PO DAILY Allopurinol 100 Mg Tablet 100 Mg PO BID Vitals/I & O Vital Sign - Last 24 Hours 06/01/18 06/01/18 06/01/18 06/01/18 15:00 19:30 19:32 20:58 Temp 97.8 97.9 97.8 97.9 Pulse 64 69 62 Resp 20 20 B/P (MAP) 128/51 (76) 152/62 (92) 128/51 Pulse Ox 97 98 O2 Delivery Room Air Room Air Room Air O2 Flow Rate 2.0 06/01/18 06/02/18 06/02/18 06/02/18 23:08 02:45 07:25 07:45 Temp 97.7 97.7 97.8 97.7 97.7 97.8 Pulse 67 61 58 Resp 20 18 16 B/P (MAP) 143/57 (85) 114/46 (68) 121/51 (74) Pulse Ox 95 96 96 O2 Delivery Room Air Room Air Room Air Room Air 06/02/18 06/02/18 08:11 11:40 Temp 98.1 98.1 Pulse 58 57 Resp 18 B/P (MAP) 121/51 122/47 (72) Pulse Ox 95 O2 Delivery Room Air Intake and Output 06/01/18 06/01/18 06/02/18 15:01 23:01 07:01 Intake Total 700 ml 900 ml Balance 700 ml 900 ml Problem List Pseudo-obstruction- resolved with neostigmine, advance diet and activity as tolerated. adjuvant therapy plans noted once recovered from surgery DILLON FREEDMAN MD Jun 02, 2018 14:36
[2018-06-02 15:45] VITALS: BP 121/48
[2018-06-02 19:19] VITALS: BP 134/60
[2018-06-02 22:13] VITALS: BP 131/56
[2018-06-03 01:06] VITALS: BP 133/57
--- NOTE | 2018-06-03 05:36 | NUR ---
I have reviewed the documentation by nursing clinical director: Leelee Piedra
[2018-06-03 07:00] VITALS: BP 140/62
--- NOTE | 2018-06-03 08:18 | RAD ---
Portable AP upright chest x-ray performed at 6:26 AM Clinical indications: Status post left upper lobe lobectomy. COMPARISON: June 02, 2018. FINDINGS: Postsurgical changes of the left hemithorax are again evident. There is a new finding of a small upper left pneumothorax which measures 13 mm in thickness. Small left-sided pleural effusion is unchanged. Left lung base atelectasis is unchanged. There is persistent consolidation of the medial aspect of the left upper lobe region which could represent postsurgical finding or postoperative atelectasis. This is unchanged. The right lung field remains clear. The heart size and mediastinum are stable. IMPRESSION: New left-sided pneumothorax. This critical result was called to the patient's floor nurse at 8:11 AM on June 03, 2018. Electronically signed by: Bryson Camilo MD (06/03/2018 8:13 AM) [id number]
--- NOTE | 2018-06-03 09:10 | PDOC ---
PULMONARY PROGRESS NOTES Subjective PT NOT MORE SOA Vitals Vital Signs Date Time Temp Pulse Resp B/P (MAP) Pulse Ox O2 Delivery O2 Flow Rate FiO2 06/03/18 07:00 98.0 58 16 140/62 (88) 94 Room Air 98.0 General: Alert, No acute distress Lungs: Other (decrease left) Cardiovascular: S1, S2 Abdomen: Soft, Other (DISTENDED) Neuro Exam: Alert Extremities: Other (EDEMA) Skin: Warm Medications Active Scripts Medications Dose Route/Sig Max Daily Dose Days Date Category Dose Instructions Eliquis (Apixaban) 5 Mg Tablet 5 Mg PO BID 12/05/17 Reported Resume tomomorrow 04/05 Amlodipine Besylate 10 Mg Tablet 10 Mg PO DAILY 12/01/17 Reported Lisinopril-Hctz 20-12.5 Mg Tab (Lisinopril/Hydrochlorothiazide) 1 Each Tablet 1 Tab PO DAILY 12/01/17 Reported Allopurinol 100 Mg Tablet 100 Mg PO BID 12/01/17 Reported Comments CXR 06/02 improved aeration Left apex Impression . IMPRESSION: 1. 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 Status post left posterior lateral thoracotomy, left upper lobectomy, mediastinal lymphadenopathy. 3. Tobacco dependence, in remission, quit 14 years ago. 4. 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 5. HYPERCAPNIA, resolved 6 METABOLIC ENCEPHALOPATHY , Resolved 7. SUBCUTANEOUS EMPHYSEMA, improved 8. PSEUDOOBSTRUCTION COLON S/P COLONOSCOPY FOR DECOMPRESSION/ improving Diagnosis: A. Lung lobe, left upper lobectomy: - ADENOSQUAMOUS CARCINOMA, INVASIVE, MODERATELY TO POORLY DIFFERENTIATED, FORMING A CAVITARY LUNG MASS MEASURING 6.9 CM IN GREATEST DIMENSION. SEE SYNOPTIC REPORT. - METASTATIC ADENOCARCINOMA INVOLVING ONE OF FOUR PERIBRONCHIAL LYMPH NODES (1/4). - Focal tumor invasion of visceral pleura. - Focal tumor vascular invasion within neoplasm. - Bronchial margin of resection negative for tumor. - Pulmonary vascular margins of resection negative for tumor. - Obstructive lipoid pneumonia of lung, focal. . B. Segments of lymph node and fibroadipose tissue, level 9 mediastinal lymph node: - Negative for tumor. . C. Segments of lymph node and fibroadipose tissue, level 10 mediastinal lymph node: - METASTATIC ADENOCARCINOMA. . D. Segment of lymph node and fibroadipose tissue, level 6 mediastinal lymph node: - METASTATIC ADENOCARCINOMA. . E. Segments of lymph node and fibroadipose tissue, level 5 mediastinal lymph node: - Negative for tumor. . F. Segments of lymph node and fibroadipose tissue, level 11 mediastinal lymph node: - Negative for tumor. Plan . CXR REVIEWED SMALL PTX D/W DR Hightower D/C OK BY F/U WITH ME IN JUNE DAIN CÁRDENAS MD Jun 03, 2018 09:10
--- NOTE | 2018-06-03 09:10 | PDOC ---
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 ROS - no CP Objective Objective Vital Signs Date Time Temp Pulse Resp B/P (MAP) Pulse Ox O2 Delivery O2 Flow Rate FiO2 06/03/18 07:00 98.0 58 16 140/62 (88) 94 Room Air 98.0 06/01/18 19:32 2.0 Intake and Output 06/03/18 07:01 Intake Total 1700 ml Balance 1700 ml Intake Oral 1700 ml # Voids 3 # Bowel Movements 3 Physical Exam Heart: Normal S1, Normal S2 General: Alert, Oriented X3 Lungs: Clear to auscultation Neuro: Normal speech Psych/Mental Status: Mental status NL Assessment Assessment IMPRESSION AND PLAN: 1. 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 Pathology revealed a T3N2M0 stage 3B lung cancer. I would recommend adjuvant chemotherapy with cisplatin and Navelbine to start in about 4 weeks followed by immunotherapy with Imfinzi. He will follow up with his primary oncologist, Dr. Delgadillo in about 3-4 weeks. I discussed in detail with the patient and his . I also discussed with Dr. Kaiden Nogueira and Dr Bell. I also reviewed his case at multidisciplinary tumor conference. 2. Pseudoobstruction of the colon, status post colonoscopy for decompression. He is improving. I d/w DR Rose, he tolerating regular diet. 3. Anemia. His hemoglobin was normal preoperatively. Hence, the drop in the hemoglobin is consistent with surgery. Hemoglobin 9.1 on 05/26/2018. Continue to monitor p.r.n. Comment Review of Relevant I have reviewed the following items florencio (where applicable) has been applied. Labs Microbiology 05/26/18 Blood Culture - Final, Complete NO GROWTH AFTER 5 DAYS Medications Current Medications Ondansetron HCl (Zofran) 4 mg PRN Q6HRS PRN IV NAUSEA/VOMITING; Start 05/22/18 at 07:00; Stop 05/22/18 at 14:47; Status DC Fentanyl Citrate (Fentanyl 2ml Vial) 25 mcg PRN Q5MIN PRN IV MILD PAIN; Start 05/22/18 at 07:00; Stop 05/23/18 at 06:59; Status DC Fentanyl Citrate (Fentanyl 2ml Vial) 50 mcg PRN Q5MIN PRN IV MODERATE TO SEVERE PAIN; Start 05/22/18 at 07:00; Stop 05/23/18 at 06:59; Status DC Morphine Sulfate (Morphine Sulfate) 1 mg PRN Q10MIN PRN IV SEVERE PAIN; Start 05/22/18 at 07:00; Stop 05/23/18 at 06:59; Status DC Ringer's Solution 1,000 ml @ 30 mls/hr Q24H IV Last administered on 05/22/18at 08:00; Start 05/22/18 at 07:00; Stop 05/22/18 at 18:59; Status DC Lidocaine HCl (Xylocaine-Mpf 1% 2ml Vial) 2 ml PRN 1X PRN ID IV START; Start at 07:00; Stop 05/23/18 at 06:59; Status DC Hydromorphone HCl (Dilaudid) 0.5 mg PRN Q10MIN PRN IV SEV PAIN, Second choice; Start 05/22/18 at 07:00; Stop 05/23/18 at 06:59; Status DC Prochlorperazine Edisylate (Compazine) 5 mg PACU PRN PRN IV NAUSEA, MRX1; Start 05/22/18 at 07:00; Stop 05/23/18 at 06:59; Status DC Cefazolin Sodium 1 gm/Sodium Chloride 500 ml @ 500 mls/hr 1X ONCE IRR Last administered on 05/22/18at 09:56; Start 05/22/18 at 06:00; Stop 05/22/18 at 06:59 ; Status DC Cefazolin Sodium/ Dextrose 50 ml @ 100 mls/hr 1X PREOP PRN IV PRIOR TO PROCEDURE; Start 05/22/18 at 06:00; Stop 05/22/18 at 18:00; Status DC Cellulose (Surgicel Hemostat 4x8) 1 each STK-MED ONCE .ROUTE Last administered on 05/22/18at 13:24; Start 05/22/18 at 07:38; Stop 05/22/18 at 07:41; Status DC Cellulose (Surgicel Hemostat 4x8) 1 each STK-MED ONCE .ROUTE ; Start 05/22/18 at 07:38; Stop 05/22/18 at 07:41; Status DC Dexamethasone Sodium Phosphate (Decadron) 20 mg STK-MED ONCE .ROUTE ; Start at 08:41; Stop 05/22/18 at 08:43; Status DC Lidocaine HCl (Lidocaine Pf 2% Vial) 5 ml STK-MED ONCE .ROUTE ; Start 05/22/18 at 08:41; Stop 05/22/18 at 08:43; Status DC Propofol 20 ml @ As Directed STK-MED ONCE IV ; Start 05/22/18 at 08:41; Stop at 08:44; Status DC Ondansetron HCl (Zofran) 4 mg STK-MED ONCE .ROUTE ; Start 05/22/18 at 08:41; Stop 05/22/18 at 08:44; Status DC Rocuronium [place] (Zemuron) 100 mg STK-MED ONCE .ROUTE ; Start 05/22/18 at 08: 41; Stop 05/22/18 at 08:44; Status DC Midazolam HCl (Versed) 2 mg STK-MED ONCE .ROUTE ; Start 05/22/18 at 08:42; Stop 05/22/18 at 08:44; Status DC Fentanyl Citrate (Fentanyl 5ml Vial) 250 mcg STK-MED ONCE .ROUTE ; Start at 08:46; Stop 05/22/18 at 08:48; Status DC Ephedrine Sulfate (ePHEDrine PF IN SALINE SYRINGE) 50 mg STK-MED ONCE IV ; Start 05/22/18 at 08:47; Stop 05/22/18 at 08:48; Status DC Glycopyrrolate (Robinul) 1 mg STK-MED ONCE .ROUTE ; Start 05/22/18 at 08:47; Stop 05/22/18 at 08:49; Status DC Sodium Chloride 35 ml/Fentanyl Citrate 250 mcg/ Ropivacaine 10 ml/ Epidural Dosage Infused (Pha) 50 ml @ 0 mls/hr CONT PRN EPID SEE PROTOCOL TABLE Last administered on 05/24/18at 10:19; Start 05/22/18 at 09:30; Stop 05/26/18 at 13:09; Status DC Succinylcholine Chloride (Anectine) 200 mg STK-MED ONCE .ROUTE ; Start 05/22/18 at 09:45; Stop 05/22/18 at 09:47; Status DC Bupivacaine HCl (Sensorcaine Mpf 0.5%) 30 ml STK-MED ONCE .ROUTE ; Start at 10:53; Stop 05/22/18 at 10:56; Status DC Bupivacaine HCl (Sensorcaine-Mpf 0.25%) 10 ml STK-MED ONCE .ROUTE ; Start at 10:54; Stop 05/22/18 at 10:56; Status DC Rocuronium [place] (Zemuron) 100 mg STK-MED ONCE .ROUTE ; Start 05/22/18 at 11: 42; Stop 05/22/18 at 11:45; Status DC Propofol 20 ml @ As Directed STK-MED ONCE IV ; Start 05/22/18 at 11:43; Stop at 11:45; Status DC Phenylephrine HCl (PHENYLEPHRINE in 0.9% NACL PF) 1 mg STK-MED ONCE IV ; Start 05/22/18 at 11:43; Stop 05/22/18 at 11:45; Status DC Phenylephrine HCl (PHENYLEPHRINE in 0.9% NACL PF) 1 mg STK-MED ONCE IV ; Start 05/22/18 at 11:43; Stop 05/22/18 at 11:45; Status DC Cefazolin Sodium/ Dextrose (Ancef 2gm Premix) 2 gm STK-MED ONCE IV ; Start 05/22 at 08:00; Stop 05/22/18 at 13:23; Status DC Lidocaine HCl (Lidocaine Pf 2% Vial) 5 ml STK-MED ONCE .ROUTE ; Start 05/22/18 at 14:08; Stop 05/22/18 at 14:10; Status DC Propofol 100 ml @ As Directed STK-MED ONCE IV ; Start 05/22/18 at 14:36; Stop 05/22/18 at 14:38; Status DC Diphenhydramine HCl (Benadryl) 25 mg PRN Q6HRS PRN IV ITCHING; Start 05/22/18 at 14:45 Famotidine (Pepcid Vial) 20 mg BID IVP Last administered on 05/31/18at 08:33; Start 05/22/18 at 21:00; Stop 05/31/18 at 10:05; Status DC Info (Icu Electrolyte Protocol) 1 ea DAILY MC Last administered on 05/27/18 09: 00; Start 05/23/18 at 09:00; Stop 05/28/18 at 09:32; Status DC Heparin Sodium (Porcine) (Heparin Sodium) 5,000 unit Q8HRS SQ Last administered on 05/28/18 05:46; Start 05/22/18 at 22:00; Stop 05/28/18 at 09:28; Status DC Sodium Chloride (Normal Saline Flush) 3 ml QSHIFT PRN IV AFTER MEDS AND BLOOD DRAWS; Start 05/22/18 at 14:45 Oxycodone HCl (Roxicodone) 10 mg PRN Q4HRS PRN PO MODERATE PAIN, SEVERE PAIN Last administered on 05/23/18at 21:29; Start 05/22/18 at 14:45; Stop 05/28/18 at 08:57; Status DC Ketorolac Tromethamine (Toradol 15mg Vial) 15 mg PRN Q6HRS PRN IV PAIN Last administered on 05/23/18 18:59; Start 05/22/18 at 14:45; Stop 05/24/18 at 06:31 ; Status DC Acetaminophen (Tylenol) 650 mg PRN Q6HRS PRN PO Headaches, Temp > 101.5F Last administered on 05/24/18 16:11; Start 05/22/18 at 14:45; Stop 05/28/18 at 13:41; Status DC Gabapentin (Neurontin) 600 mg Q8HRS PO Last administered on 05/23/18at 21:27; Start 05/22/18 at 22:00; Stop 05/24/18 at 11:16; Status DC Naloxone HCl (Narcan) 0.4 mg PRN Q2MIN PRN IV SEE INSTRUCTIONS Last administered on 05/24/18 04:41; Start 05/22/18 at 14:45 Morphine Sulfate (Morphine Sulfate) 2 mg PRN Q1HR PRN IV PAIN; Start 05/22/18 at 14:45; Status UNV Ondansetron HCl (Zofran) 4 mg PRN Q6HRS PRN IV NAUESA, 1ST CHOICE Last administered on 05/23/18at 14:00; Start 05/22/18 at 14:45 Prochlorperazine Edisylate (Compazine) 5 mg PRN Q6HRS PRN IV N/V, 2nd Choice, MR X1; Start 05/22/18 at 14:45 Metoclopramide HCl (Reglan Vial) 5 mg PRN Q6HRS PRN IV Nausea/Vomiting, 3rd Choice Last administered on 05/24/18at 16:30; Start 05/22/18 at 14:45 Senna/Docusate Sodium (Senna Plus) 1 tab BID PO Last administered on 05/31/18at 08:32; Start 05/22/18 at 21:00; Stop 05/31/18 at 15:47; Status DC Docusate Sodium (Colace) 100 mg BID PO Last administered on 05/31/18 08:33; Start 05/22/18 at 21:00; Stop 05/31/18 at 15:47; Status DC Cefazolin Sodium/ Dextrose 50 ml @ 100 mls/hr Q6H IV Last administered on 05/23at 04:35; Start 05/22/18 at 16:45; Stop 05/23/18 at 05:14; Status DC Metoprolol Tartrate (Lopressor) 25 mg BID PO Last administered on 06/02/18at 21: 01; Start 05/22/18 at 21:00 Hydralazine HCl (Apresoline Inj) 25 mg PRN Q2HRS PRN IVP ELEVATED BP, SEE COMMENTS; Start 05/22/18 at 17:00 Insulin Human Regular (HumuLIN R VIAL) 10 unit 1X ONCE IV Last administered on 05/24/18at 06:39; Start 05/24/18 at 07:00; Stop 05/24/18 at 07:01; Status DC Dextrose (Dextrose 50%-Water Syringe) 25 gm 1X ONCE IV Last administered on 05/24/18at 06:41; Start 05/24/18 at 07:00; Stop 05/24/18 at 07:01; Status DC Albuterol Sulfate (Ventolin Neb Soln) 2.5 mg PRN Q4HRS PRN NEB SHORTNESS OF BREATH; Start 05/24/18 at 11:15 Sodium Chloride 1,000 ml @ 80 mls/hr [id number] IV Last administered on 2/4/19at 23:16; Start 05/24/18 at 14:30; Stop 05/28/18 at 09:28; Status DC Multivitamins 10 ml/Thiamine HCl 100 mg/Folic Acid 1 mg/Sodium Chloride 1,011.2 ml @ 80 mls/hr DAILY IV Last administered on 05/28/18at 09:31; Start 05/24/18 at 15:30; Stop 05/28/18 at 10:14; Status DC Piperacillin Sod/ Tazobactam Sod 4.5 gm/Sodium Chloride 100 ml @ 200 mls/hr Q6HRS IV Last administered on 05/28/18at 12:56; Start 05/24/18 at 18:00; Stop 05/28 at 13:59; Status DC Ketorolac Tromethamine (Toradol 15mg Vial) 15 mg PRN Q6HRS PRN IV PAIN Last administered on 05/26/18at 18:23; Start 05/24/18 at 17:15; Stop 05/29/18 at 17:14; Status DC Gabapentin (Neurontin) 600 mg TID PO Last administered on 06/02/18at 21:00; Start 05/24/18 at 21:00 Neostigmine Methylsulfate (Bloxiverz) 1.5 mg 1X ONCE IV Last administered on at 17:22; Start 05/25/18 at 17:15; Stop 05/25/18 at 17:16; Status DC Atropine Sulfate (ATROPINE 1mg SYRINGE) 1 mg PRN 1X PRN IV SYMPTOMATIC BRADYCARDIA; Start 05/25/18 at 17:15; Stop 06/02/18 at 11:21; Status DC Propofol 20 ml @ As Directed STK-MED ONCE IV ; Start 05/26/18 at 09:10; Stop 05/26 at 09:12; Status DC Propofol 0 ml @ As Directed STK-MED ONCE IV ; Start 05/26/18 at 09:10; Stop at 09:12; Status DC Propofol 20 ml @ As Directed STK-MED ONCE IV ; Start 05/26/18 at 10:57; Stop 05/26 at 11:00; Status DC Neostigmine Methylsulfate (Bloxiverz) 2 mg 1X ONCE IV Last administered on 05/26 11:15; Start 05/26/18 at 11:15; Stop 05/26/18 at 11:16; Status DC Potassium Chloride/Water 50 ml @ 50 mls/hr 1X ONCE IV Last administered on 05/26 17:12; Start 05/26/18 at 17:00; Stop 05/26/18 at 17:59; Status DC Potassium Chloride/Water 50 ml @ 50 mls/hr Q1H IV Last administered on 11:12; Start 05/27/18 at 11:30; Stop 05/27/18 at 13:29; Status DC Bisacodyl (Dulcolax Supp) 10 mg PRN DAILY PRN [place] CONSTIPATION Last administered on 05/27/18 15:23; Start 05/27/18 at 14:45 Oxycodone HCl (Roxicodone) 5 mg PRN Q4HRS PRN PO MODERATE PAIN, SEVERE PAIN; Start 05/28/18 at 09:00; Stop 05/28/18 at 13:38; Status DC Bisacodyl (Dulcolax Supp) 10 mg 1X ONCE WI Last administered on 05/28/18 12:04 ; Start 05/28/18 at 09:00; Stop 05/28/18 at 09:06; Status DC Apixaban (Eliquis) 5 mg BID PO Last administered on 06/02/18 21:01; Start 05/28 at 21:00 Info (Anti-Coagulation Monitoring By Pharmacy) 1 each PRN DAILY PRN MC SEE COMMENTS Last administered on 06/02/18 11:25; Start 05/28/18 at 09:45 Multivitamins (Thera M Plus) 1 tab DAILY PO Last administered on 06/02/18 08: 10; Start 05/29/18 at 09:00 Folic Acid (Folic Acid) 1 mg DAILY PO Last administered on 06/02/18 08:10; Start 05/29/18 at 09:00 Thiamine Mononitrate (Vitamin B-1) 100 mg DAILY PO Last administered on 08:10; Start 05/29/18 at 09:00 Lactobacillus Rhamnosus (Culturelle) 1 cap BID PO Last administered on 21:00; Start 05/28/18 at 21:00 Acetaminophen (Tylenol) 500 mg PRN Q6HRS PRN PO MILD PAIN / TEMP; Start at 13:45 Albuterol/ Ipratropium (Duoneb) 3 ml RTQID NEB Last administered on 05/30/18at 20 :36; Start 05/28/18 at 16:00; Stop 05/31/18 at 15:13; Status DC Albuterol/ Ipratropium (Duoneb) 3 ml 1X ONCE NEB Last administered on at 14:07; Start 05/28/18 at 14:00; Stop 05/28/18 at 14:01; Status DC Vancomycin HCl 1.75 gm/Sodium Chloride 500 ml @ 250 mls/hr Q12H IV ; Start 05/28 at 14:00; Status UNV Vancomycin HCl (Vanco Per Pharmacy) 1 each PRN DAILY PRN MC SEE COMMENTS Last administered on 05/30/18at 04:10; Start 05/28/18 at 14:15; Stop 05/30/18 at 09:35; Status DC Vancomycin HCl 2 gm/Sodium Chloride 500 ml @ 250 mls/hr ONCE ONCE IV Last administered on 05/28/18at 16:05; Start 05/28/18 at 14:15; Stop 05/28/18 at 16:14; Status DC Vancomycin HCl 2 gm/Sodium Chloride 500 ml @ 250 mls/hr Q12H IV Last administered on 05/30/18at 03:59; Start 05/29/18 at 04:00; Stop 05/30/18 at 08:24; Status DC Vancomycin HCl (Vancomycin Trough Level) 1 each 1X ONCE MC Last administered on 05/30/18at 03:30; Start 05/30/18 at 03:30; Stop 05/30/18 at 03:31; Status DC Bisacodyl (Dulcolax Supp) 10 mg 1X ONCE [place] ; Start 05/29/18 at 11:00; Stop at 11:01; Status DC Iohexol (Omnipaque 240 Mg/ml) 30 ml 1X ONCE PO ; Start 05/29/18 at 11:15; Stop 05/29/18 at 11:16; Status DC Info (CONTRAST GIVEN -- Rx MONITORING) 1 each PRN DAILY PRN MC SEE COMMENTS; Start 05/29/18 at 11:15; Stop 05/31/18 at 11:14; Status DC Neostigmine Methylsulfate (Bloxiverz) 2 mg 1X ONCE IV Last administered on 05/29at 15:32; Start 05/29/18 at 14:15; Stop 05/29/18 at 14:16; Status DC Polyethylene Glycol (miraLAX PACKET) 17 gm DAILY PO Last administered on at 08:10; Start 05/30/18 at 17:00 Famotidine (Pepcid) 20 mg BID PO Last administered on 06/02/18at 21:00; Start at 21:00 Active Scripts Active Reported Eliquis (Apixaban) 5 Mg Tablet 5 Mg PO BID Resume tomomorrow 04/05 Amlodipine Besylate 10 Mg Tablet 10 Mg PO DAILY Lisinopril-Hctz 20-12.5 Mg Tab (Lisinopril/Hydrochlorothiazide) 1 Each Tablet 1 Tab PO DAILY Allopurinol 100 Mg Tablet 100 Mg PO BID Vitals/I & O Vital Sign - Last 24 Hours 06/02/18 06/02/18 06/02/18 06/02/18 11:40 15:45 19:19 19:25 Temp 98.1 98.0 97.5 98.1 98.0 97.5 Pulse 57 61 63 Resp 18 16 16 B/P (MAP) 122/47 (72) 121/48 (72) 134/60 (84) Pulse Ox 95 96 95 O2 Delivery Room Air Room Air Room Air Room Air 06/02/18 06/02/18 06/02/18 06/03/18 20:00 21:01 22:13 01:06 Temp 97.9 97.8 97.9 97.8 Pulse 63 63 61 Resp 18 16 B/P (MAP) 134/60 131/56 (81) 133/57 (82) Pulse Ox 96 94 O2 Delivery Room Air Room Air Room Air 06/03/18 07:00 Temp 98.0 98.0 Pulse 58 Resp 16 B/P (MAP) 140/62 (88) Pulse Ox 94 O2 Delivery Room Air Intake and Output 06/02/18 06/02/18 06/03/18 15:01 23:01 07:01 Intake Total 1300 ml 400 ml Balance 1300 ml 400 ml BAHMAN MARINELLI MD Jun 03, 2018 09:10
[2018-06-03] MEDS: POLYETHYLENE GLYCOL 3350 17 GM PACKET. PO SCH (09:25)
[2018-06-03] MEDS: FOLIC ACID 1 MG TABLET. PO SCH (09:26)
[2018-06-03] MEDS: MULTIVITAMIN with MINERAL TABLET. PO SCH (09:29)
[2018-06-03] MEDS: LACTOBACILLUS RHAMNOSUS GG 1 CAPSULE. PO SCH (09:29)
[2018-06-03] MEDS: THIAMINE 100 MG TABLET. PO SCH (09:30)
[2018-06-03] MEDS: FAMOTIDINE 20 MG TABLET. PO SCH (09:30)
[2018-06-03] MEDS: GABAPENTIN 300 MG CAPSULE. PO SCH (09:30)
[2018-06-03] MEDS: METOPROLOL TART IMMED RELEASE 25 MG TABLET. PO SCH (09:30)
[2018-06-03] MEDS: APIXABAN 5 MG TABLET. PO SCH (09:31)
--- NOTE | 2018-06-03 09:39 | PDOC ---
Subjective: Subjective: Tolerating diet, stooling, and passing gas. Says going home today. says he occasionally has some right-sided abd pain when walking. Objective: Vital Signs: Vital Signs Date Time Temp Pulse Resp B/P (MAP) Pulse Ox O2 Delivery O2 Flow Rate FiO2 06/03/18 07:00 98.0 58 16 140/62 (88) 94 Room Air 98.0 Labs: BLOOD CULTURE Final NO GROWTH AFTER 5 DAYS Imaging: CXR 06/03 IMPRESSION: New left-sided pneumothorax. PE: GEN: NAD, in recliner LUNGS: room air HEART: RRR ABD: softer, non-tender, BS+ NEURO/PSYCH: A & O �3 A/P: Colonic pseudo-obstruction - resolved Lung cancer, pneumothorax -- Improved GI-morillo. On Miralax. CXR result noted after I saw, continue per CTS. Follow-up for outpt colonoscopy/polyp removal later on. WAN ELIZALDE Jun 03, 2018 09:39
[2018-06-03 10:55] VITALS: BP 129/53
[2018-06-03] MEDS ORDERED: IOHEXOL 240 MG/ML 50ML VIAL. PO ONE (12:00)
[2018-06-03] MEDS ORDERED: CONTRAST GIVEN. MC PRN (12:00)
--- NOTE | 2018-06-03 12:10 | NUR ---
SS following up with discharge planning. Pt's RN reported that pt is now on a regular diet but x-ray indicates a possible new pneumothorax. Pt's RN reported that physician has been notified. PT recommending home. SS will continue to follow for discharge planning.
--- NOTE | 2018-06-03 13:03 | PDOC ---
Progress Note Subjective Subjective Tolerating regular diet, had BMs today. CXR shows possible L PTX-timing very unusual but will get CT chest to confirm ROS ROS No nausea No vomiting No pain No rash Vital Sign Vital Signs Vital Signs Date Time Temp Pulse Resp B/P (MAP) Pulse Ox O2 Delivery O2 Flow Rate FiO2 06/03/18 10:55 97.7 67 18 129/53 (78) 97 Room Air 97.7 Physical Exam PHYSICAL EXAM GENERAL: Alert and oriented gentleman, not in any distress. VITAL SIGNS: Stable, afebrile. HEENT: NAD. NECK: Supple, no JVP, no lymphadenopathy. LUNGS: Clear. Decreased breath sounds on the left. The incisions are unremarkable for any infection. ABDOMEN: Distended, tympanic. No tenderness, no rebound or guarding, no organomegaly appreciated. EXTREMITIES: No edema or cyanosis. SKIN: Unremarkable. NEUROLOGIC: The patient is neurologically alert, awake and appropriate. No focal neurologic deficit. Objective Assessment POD#11, s/p left upper lobectomy and mediastinal lymphadenectomy Tolerating regular diet, had BMs today. CXR shows possible L PTX-timing very unusual but will get CT chest to confirm Pathology confirms T3N2M0, stage IIIB, moderately to poorly differentiated adenosquamous lung Ca. Will start adjuvant chemotherapy with Cisplatin and Navelbine in 4 weeks Plan Plan of Care CT chest / abdomen wo contrast D/c home depending on results of CT NAMRATA WYATT MD Jun 03, 2018 13:03
--- NOTE | 2018-06-03 14:19 | PDOC3 ---
Discharge Summary Visit Information Date of Admission: May 22, 2018 Date of Discharge: Jun 03, 2018 Admitting Diagnosis: Lung cancer Final Diagnosis Pathology confirms T3N2M0, stage IIIB, moderately to poorly differentiated adenosquamous lung Ca. Colonic pseudoobstruction Brief Hospital Course Allergies Allergies Coded Allergies Type Severity Reaction Last Updated Verified No Known Drug Allergies 05/22/18 No Vital Signs Vital Signs Date Time Temp Pulse Resp B/P (MAP) Pulse Ox O2 Delivery O2 Flow Rate FiO2 06/03/18 10:55 97.7 67 18 129/53 (78) 97 Room Air 97.7 Brief Hospital Course The patient is a 58-year-old male who presented in November 2017 with shortness of breath and pleuritic chest pain. He was found to have a pulmonary embolus at that time. Additionally the CT demonstrated a cavitary lesion in the left upper lobe. Follow-up CT of the chest 4 months later showed a persistent cavitary lesion. 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 The cavitary lesion measures 6.5 x 5.5 cm. He went on to have a PET/CT which showed that the cavitary lesion was FDG avid with an SUV of 18.5. There was no other activity in the mediastinum or distally. His PFTs were good with an FEV1 of 77% and a DLCO of 75%. He presented on May 22, 2018 for an elective left upper lobectomy and mediastinal lymphadenectomy. Postoperatively he was transferred to the ICU intubated, with an epidural catheter and chest tubes. He was extubated within 2 hours of admission to the ICU. He did well on postoperative day 1. On postoperative day 2 he was found to be drowsy and an ABG demonstrated hypercapnia with respiratory acidosis. He was started on BiPAP. The hypercapnia was most likely caused by the epidural catheter which also included fentanyl. He also has a history of undiagnosed obstructive sleep apnea. The hypercapnia resolved and his mental status normalized. His chest tubes were removed by postoperative day 3. He did develop significant abdominal distention with right lower quadrant tenderness. CT of the abdomen demonstrated significant colonic dilatation, which was predominant in the cecum and the transverse colon. This was thought to be on exudative obstruction. He had an attempted colonoscopic decompression which was not successful. He went on to have several doses of neostigmine. The kept nothing by mouth. On postoperative day 5 he was started on liquids and by postoperative day 8 was started on a regular diet which he tolerated with regular bowel movements. Prior to discharge he had another CT of the chest and abdomen which showed expected postoperative findings in the chest and a completely decompressed colon. He was discharged home on June 03, 2018. His final pathology confirms T3N2M0, stage IIIB, moderately to poorly differentiated adenosquamous lung Ca. Will start adjuvant chemotherapy with Cisplatin and Navelbine in 4 weeks. He will follow-up with me in clinic on June 21, 2018. Discharge Information Condition at Discharge: Improved Follow Up: Weeks (3) Scheduled Allopurinol (Allopurinol) 100 Mg Tablet, 100 MG PO BID, (Reported) Entered as Reported by: DEREK ASENCIO on 12/01/172024 Last Taken: Unknown Dose on 05/21/182199 Last Action: Last Taken Edited on 05/22/18714 by GOVIND ADKINS Amlodipine Besylate (Amlodipine Besylate) 10 Mg Tablet, 10 MG PO DAILY, ( Reported) Entered as Reported by: DEREK ASENCIO on 12/01/172025 Last Taken: Unknown Dose on 05/21/18 08 Last Action: Last Taken Edited on 05/22/18714 by GOVIND ADKINS Apixaban (Eliquis) 5 Mg Tablet, 5 MG PO BID for blood thinner, (Reported) Resume tomomorrow 04/05 Entered as Reported by: JULIANA SALTER on 12/05/17 1258 Last Taken: Unknown Dose on 05/18/18 Last Action: Last Taken Edited on 714 by GOVIND ADKINS Lisinopril/Hydrochlorothiazide (Lisinopril-Hctz 20-12.5 Mg Tab) 1 Each Tablet, 1 TAB PO DAILY, #30 Ref 5 (Reported) Entered as Reported by: DEREK ASENCIO on 12/01/172025 Last Taken: Unknown Dose on 05/21/18 0800 Last Action: Last Taken Edited on 05/22/18714 by GOVIND ADKINS Scheduled PRN Polyethylene Glycol 3350 (Polyethylene Glycol 3350) 17 Gm Powd.pack, 17 GM PO DAILY PRN for CONSTIPATION for 10 Days, #10 Ref 0 Prescribed by: NAMRATA WYATT MD on 06/03/18 5237 Tramadol Hcl (Tramadol Hcl) 50 Mg Tablet, 50 MG PO Q8HRS PRN for PAIN, #20 Ref 0 Prescribed by: NAMRATA WYATT MD on 06/03/18 1457 NAMRATA WYATT MD Jun 03, 2018 14:19
[2018-06-03 14:55] VITALS: BP 142/60
[2018-06-03] MEDS ORDERED: POLY17PO28 PO (14:57)
[2018-06-03] MEDS ORDERED: TRAM50TA PO (14:57)
[2018-06-03] MEDS: ANTI-COAG MONITOR BY PHARMACY. MC PRN (15:21)
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
--- NOTE | 2018-06-03 16:12 | NUR ---
Patient provided discharge instructions, prescriptions and follow up appointments. Patient and verbalized understanding. Discharge paperwork is signed and in chart. A copy was provided to the patient.
[2018-10-05] MEDS ORDERED: AMOX1TAB61 PO (12:09)
== END 2018-06-03 16:11 | disposition home or self-care (01) | DRG 163 ==
LOC: OPSVCIP 06:54 → 1 WEST ICU 14:33 → 2 NORTH 05-28 09:09
PROVIDERS: ADMIT Thoracic Surgery (Cardiothoracic Vascular Surgery); ATTEND Thoracic Surgery (Cardiothoracic Vascular Surgery)
PROC: 07B70ZX Excision of Thorax Lymphatic, Open Approach, Diagnostic (ICD-10-PCS; 2018-05-22)
PROC: 0BJ08ZZ Inspection of Tracheobronchial Tree, Via Natural or Artificial Opening Endoscopic (ICD-10-PCS; 2018-05-22)
PROC: 5A1935Z Respiratory Ventilation, Less than 24 Consecutive Hours (ICD-10-PCS; principal; 2018-05-22 09:00)
PROC: 0BTG0ZZ Resection of Left Upper Lung Lobe, Open Approach (ICD-10-PCS; 2018-05-22 09:00)
PROC: 5A09357 Assistance with Respiratory Ventilation, Less than 24 Consecutive Hours, Continuous Positive Airway Pressure (ICD-10-PCS; 2018-05-24)
PROC: 02HV33Z Insertion of Infusion Device into Superior Vena Cava, Percutaneous Approach (ICD-10-PCS; 2018-05-24)
PROC: 5A09357 Assistance with Respiratory Ventilation, Less than 24 Consecutive Hours, Continuous Positive Airway Pressure (ICD-10-PCS; 2018-05-25)
PROC: 0BH17EZ Insertion of Endotracheal Airway into Trachea, Via Natural or Artificial Opening (ICD-10-PCS; 2018-05-25)
PROC: 0D9L8ZZ Drainage of Transverse Colon, Via Natural or Artificial Opening Endoscopic (ICD-10-PCS; 2018-05-26)
PROC: 0DJD8ZZ Inspection of Lower Intestinal Tract, Via Natural or Artificial Opening Endoscopic (ICD-10-PCS; 2018-05-27)
DX: C34.12 Malignant neoplasm of upper lobe, left bronchus or lung (principal); G93.41 Metabolic encephalopathy; J96.91 Respiratory failure, unspecified with hypoxia; T79.7XXA Traumatic subcutaneous emphysema, initial encounter; C77.1 Secondary and unspecified malignant neoplasm of intrathoracic lymph nodes; E87.2 Acidosis; J93.82 Other air leak; J93.9 Pneumothorax, unspecified; J98.11 Atelectasis; N17.9 Acute kidney failure, unspecified; R78.81 Bacteremia; D64.9 Anemia, unspecified; E78.5 Hyperlipidemia, unspecified; E66.9 Obesity, unspecified; E87.5 Hyperkalemia; G47.33 Obstructive sleep apnea (adult) (pediatric); M10.9 Gout, unspecified; I10 Essential (primary) hypertension; K63.5 Polyp of colon; Z80.0 Family history of malignant neoplasm of digestive organs; Z80.42 Family history of malignant neoplasm of prostate; Z85.118 Personal history of other malignant neoplasm of bronchus and lung; Z86.711 Personal history of pulmonary embolism; Z86.718 Personal history of other venous thrombosis and embolism; Z79.01 Long term (current) use of anticoagulants; Z87.891 Personal history of nicotine dependence; Z92.21 Personal history of antineoplastic chemotherapy
CPT/HCPCS: 36415; 36569; 36600; 45378; 71045; 71250; 74018; 74176; 80048; 80053; 80202; 82565; 82805; 83605; 83735; 84100; 84132; 84145; 84484; 84520; 85007; 85014; 85018; 85025; 85027; 86850; 86900; 86901; 86920; 87040; 87186; 87205; 87493; 88305; 88309; 88331; 94002; 94640; 94660; 94760; C2615; J0330; J0690; J0696; J1100; J1644; J1815; J1885; J2001; J2250; J2310; J2370; J2405; J2543; J2704; J2710; J2765; J2795; J3010; J3370; J3480; J3490; J7030; J7040; J7042; J7120; J7620; 97110; 97116; 97530; 97535; G0378

== ENCOUNTER → 2018-06-21 | Outpatient (CLI) | payer BC ==
[2018-06-03 14:55] VITALS: BP 142/60
[~2018-06-21] MED LIST changes: +POLY17PO28 PO; +TRAM50TA PO
--- NOTE | 2018-06-21 17:45 | RAD ---
CHEST PA LATERAL Clinical indications: STATUS POST THORACOTOMY COMPARISON: June 03, 2018. Findings: Again seen is a left-sided pleural effusion and associated left lung base consolidative infiltrate which is unchanged. The previously seen left apical pneumothorax is not evident but there is some pleural fluid present within the left apical area. No new lung infiltrate is seen on the right side. The heart size and mediastinum are stable. IMPRESSION: Moderate size left-sided pleural effusion and associated left lung base consolidative infiltrate. Left apical pneumothorax has been replaced with some left apical pleural fluid. Electronically signed by: Bryson Camilo MD (06/21/2018 5:41 PM) [facility]
== END | disposition home or self-care (01) ==
LOC: RAD 11:18
PROVIDERS: ATTEND Thoracic Surgery (Cardiothoracic Vascular Surgery)
DX: Z09 Encounter for follow-up examination after completed treatment for conditions other than malignant neoplasm (principal); J90 Pleural effusion, not elsewhere classified; R91.8 Other nonspecific abnormal finding of lung field; Z98.890 Other specified postprocedural states
CPT/HCPCS: 71046

== ENCOUNTER 2018-07-02 07:06 | Outpatient (CLI) | payer BC ==
[2018-07-02] VITALS (11 sets, daily range): BP systolic 104–126; BP diastolic 42–60
[~2018-07-02] VITALS: Ht 190.5 cm; Wt 113.4 kg
[2018-07-02 07:41] LABS: BASO % 1 % (0-3); EOS # 0.2 x10^3/uL (0.0-0.7); EOS % 3 % (0-3); HEMATOCRIT 32.9 % (39.0-53.0); HEMOGLOBIN 10.8 g/dL (13.0-17.5); LYMPH # 1.3 x10^3/uL (1.0-4.8); LYMPH % 20 % (24-48); MEAN CORPUSCULAR HEMOGLOBIN 27 pg (25-35); MEAN CORPUSCULAR HGB CONC 33 g/dL (31-37); MEAN CORPUSCULAR VOLUME 83 fL (79-100); MONO # 0.6 x10^3/uL (0.0-1.1); MONO % 10 % (0-9); NEUT # 4.1 x10^3uL (1.8-7.7); NEUT % 67 % (31-73); PLATELET COUNT 365 x10^3/uL (140-400); RED BLOOD COUNT 3.98 x10^6/uL (4.30-5.70); RED CELL DISTRIBUTION WIDTH 16.4 % (11.5-14.5); WHITE BLOOD COUNT 6.2 x10^3/uL (4.0-11.0)
[2018-07-02 07:49] LABS: PROTHROMBIN TIME PATIENT 13.8 SEC (11.7-14.0)
[2018-07-02] MEDS ORDERED: HEPARIN PF 500 UNIT/5 ML DISP.SYRIN. IV ONE (08:08)
[2018-07-02] MEDS: LIDOCAINE 1%/EPI 1:100,000 20 ML VIAL. IJ ONE (08:15)
[2018-07-02] MEDS: MIDAZOLAM HCL/PF 2 MG/2 ML VIAL. IV ONE (08:15)
[2018-07-02] MEDS: fentaNYL PF VIAL 100 MCG/2 ML VIAL IV ONE (08:15)
[2018-07-02] MEDS ORDERED: fentaNYL PF VIAL 100 MCG/2 ML VIAL ONE (08:24)
[2018-07-02] MEDS ORDERED: MIDAZOLAM HCL/PF 2 MG/2 ML VIAL. ONE (08:24)
[2018-07-02] MEDS: HEPARIN PF 500 UNIT/5 ML DISP.SYRIN. IV ONE (08:30)
--- NOTE | 2018-07-02 09:17 | PDOC1 ---
History and Physical Date of Procedure Date of Admission History of Present Illness Reason for Visit Adult male with lung cancer Past Medical History Past Medical History see nursing pre-op assessment Current Medications Current Medications Current Medications Midazolam HCl (Versed) 2 mg 1X ONCE IV ; Start 07/02/18 at 08:15; Stop at 08:16; Status DC Fentanyl Citrate (Fentanyl 2ml Vial) 100 mcg 1X ONCE IV ; Start 07/02/18 at 08: 15; Stop 07/02/18 at 08:16; Status DC Lidocaine/ Epinephrine (LIDOCAINE 1%-EPI 1:100,000 Multi-Dose) 20 ml 1X ONCE IJ ; Start 07/02/18 at 08:15; Stop 07/02/18 at 08:16; Status DC Cefazolin Sodium/ Dextrose 50 ml @ 100 mls/hr 1X ONCE IV ; Start 07/02/18 at 08:15; Stop 07/02/18 at 08:44; Status DC Heparin Sodium (Porcine) (Hep Lock Adult) 500 unit STK-MED ONCE IV ; Start 07/02 at 08:08; Stop 07/02/18 at 08:10; Status DC Midazolam HCl (Versed) 2 mg STK-MED ONCE .ROUTE ; Start 07/02/18 at 08:24; Stop 07/02/18 at 08:25; Status DC Fentanyl Citrate (Fentanyl 2ml Vial) 100 mcg STK-MED ONCE .ROUTE ; Start at 08:24; Stop 07/02/18 at 08:25; Status DC Cefazolin Sodium/ Dextrose 50 ml @ As Directed STK-MED ONCE IV ; Start 07/02/18 at 08:24; Stop 07/02/18 at 08:25; Status DC Heparin Sodium (Porcine) (Hep Lock Adult) 500 unit 1X ONCE IV ; Start 07/02/18 at 08:30; Stop 07/02/18 at 08:34; Status DC Active Scripts Active Tramadol Hcl 50 Mg Tablet 50 Mg PO Q8HRS PRN Reported Eliquis (Apixaban) 5 Mg Tablet 5 Mg PO BID Amlodipine Besylate 10 Mg Tablet 10 Mg PO DAILY Lisinopril-Hctz 20-12.5 Mg Tab (Lisinopril/Hydrochlorothiazide) 1 Each Tablet 1 Tab PO DAILY Allopurinol 100 Mg Tablet 100 Mg PO BID Allergies Allergies: Coded Allergies: No Known Drug Allergies (Unverified , 05/22/18) Physical Exam Vital Signs Vital Signs Date Time Temp Pulse Resp B/P (MAP) Pulse Ox O2 Delivery O2 Flow Rate FiO2 07/02/18 08:02 Room Air 07/02/18 08:00 98.7 64 18 126/57 (80) 99 98.7 Other see nursing pre-op assessment Assessment Assessment lung cancer Plan Plan RENATO Ventura MD Jul 02, 2018 09:17
--- NOTE | 2018-07-02 09:18 | PDOC ---
MODERATE SEDATION ASSESSMENT RISKS/ALTERNATIVES Risks/Alternatives Risks and alternatives of this type of sedation and procedure discussed with: RISK/ALTERNATIVES: Patient H & P ON CHART H & P H & P on chart and reviewed for co-morbid conditions and appropriate labs. H&P ON CHART: Yes STATUS PREG STATUS ASSESSED: Yes MEDS/ALLERGIES REVIEWED Meds/Allergies Reviewed Medications and Allergies including time and route of recently administered narcotics and sedatives. MEDS/ALLERGIES REVIEWED: Yes ASA RATING ASA RATING: II AIRWAY ASSESSMENT Airway Assessment Airway patency, oral function limitations, presence of caps, crowns, dentures, partials, and ability to extend neck assessed. AIRWAY ASSESSMENT: Yes MALLAMPATI SCORE MALLAMPATI SCORE: II PRE-SEDATION ASSESSMENT PRE-SEDATION ASSESSMENT: Yes RENATO MORALES MD Jul 02, 2018 09:18
--- NOTE | 2018-07-02 09:18 | PDOC ---
BRIEF OPERATIVE NOTE Pre-Op Diagnosis Lung cancer Post-Op Diagnosis same Surgeon Leslie Anesthesia Type: Conscious Sedation Findings right IJ port Complications No immediate RENATO MORALES MD Jul 02, 2018 09:18
--- NOTE | 2018-07-03 08:40 | RAD ---
Procedure: Port-A-Cath placement Clinical Indication: 58-year-old with lung cancer Sedation: Conscious sedation was administered with a total intraprocedural sbma-ak-isdu time of 29 minutes. The patient was monitored by a qualified independent observer throughout the time of sedation. Please refer to the medical record for exact doses of medications utilized to achieve moderate sedation. Antibiotics: Elements antibiotic Exposure: Fluoro Time: 0.1 minutes Images: 1 Contrast: None Sterility: All elements of maximal sterile barrier technique including the use of a cap, mask, sterile gown, sterile gloves, large sterile sheet, appropriate hand hygiene, and 2% chlorhexidine for cutaneous antisepsis (or acceptable alternative antiseptic per current guidelines) were followed for this procedure. If ultrasound guidance was utilized, sterile ultrasound techniques were followed including use of a sterile probe cover. Consent: The procedure was explained in its entirety to the patient or the patients designated mechanical service representative by a member of the treatment team, including a discussion of the risks, benefits and commonly accepted alternatives to the procedure, as well as the expected consequences of no therapy whatsoever. Discussion of the risks included, but was not limited to, those that are most frequent and those that are rare but possibly severe or life-threatening, as well as the possibility of unforeseen complications. Technique and Findings: Ultrasound interrogation of the right neck revealed patency and compressibility of the internal jugular vein. A hardcopy ultrasound image was recorded as a 21-gauge micropuncture needle was used to gain access to this vessel. The needle was exchanged over a wire for a peel-away sheath. The skin over the ipsilateral anterior chest wall was then copiously anesthetized with 1% lidocaine plus epinephrine, and a small dermatotomy was made. Blunt dissection techniques were used to create a pocket for the port. The port was then tunneled subcutaneously towards the neck dermatotomy then deployed under fluoroscopic guidance through the peel-away sheath such that the distal tip resided in the proximal right atrium. The port was accessed and found to flush and aspirate with ease. The port was packed with heparin. The pocket was copiously irrigated with sterile saline then closed with deep interrupted and running subcuticular 4-0 Vicryl suture. Dermabond was used to close the neck dermatotomy. Complications: No immediate Impression: 1. Ultrasound and fluoroscopic guided Port-A-Cath placement as described
== END 2018-07-02 12:12 | disposition home or self-care (01) ==
LOC: INTRAD 07:06
PROVIDERS: ATTEND Internal Medicine Hematology & Oncology
DX: C34.92 Malignant neoplasm of unspecified part of left bronchus or lung (principal); Z79.01 Long term (current) use of anticoagulants
CPT/HCPCS: 36415; 36561; 76937; 77001; 85025; 85610; 99152; 99153; C1788; C1892; J0696; J2250; J3010; J3490; C1751

== ENCOUNTER 2018-08-07 19:18 | Inpatient (IN) | payer BC ==
[~2018-08-07] VITALS: Ht 188 cm; Wt 110.7 kg
[2018-08-07] MEDS ORDERED: IV NORMAL SALINE 1000ML BAG 1,000 ML IV ONE ×2 (19:45→20:30)
[2018-08-07] MEDS ORDERED: ACETAMINOPHEN 325 MG TABLET. PO ONE (19:45)
[2018-08-07 20:01] LABS: BASO % 2 % (0-3); EOS % 0 % (0-3); HEMATOCRIT 26.2 % (39.0-53.0); HEMOGLOBIN 8.8 g/dL (13.0-17.5); LYMPH # 0.8 x10^3/uL (1.0-4.8); LYMPH % 37 % (24-48); MEAN CORPUSCULAR HEMOGLOBIN 27 pg (25-35); MEAN CORPUSCULAR HGB CONC 33 g/dL (31-37); MEAN CORPUSCULAR VOLUME 80 fL (79-100); MONO # 0.2 x10^3/uL (0.0-1.1); MONO % 11 % (0-9); NEUT # 1.1 x10^3uL (1.8-7.7); NEUT % 51 % (31-73); PLATELET COUNT 636 x10^3/uL (140-400); RED BLOOD COUNT 3.29 x10^6/uL (4.30-5.70); RED CELL DISTRIBUTION WIDTH 16.8 % (11.5-14.5); WHITE BLOOD COUNT 2.2 x10^3/uL (4.0-11.0)
[2018-08-07 20:09] LABS: CALCIUM 9.1 mg/dL (8.5-10.1); CREATININE 1.4 mg/dL (0.7-1.3); GFR 52.1; POTASSIUM 3.5 mmol/L (3.5-5.1)
[2018-08-07 20:15] LABS: ALBUMIN 2.8 g/dL (3.4-5.0); ALBUMIN/GLOBULIN RATIO 0.7 (1.0-1.7); TOTAL BILIRUBIN 0.3 mg/dL (0.2-1.0); TOTAL PROTEIN 6.9 g/dL (6.4-8.2)
[2018-08-07] MEDS ORDERED: CEFEPIME HCL IV Push 2 GM VIAL. IVP ONE (20:30)
[2018-08-07 20:32] LABS: % BANDS 22 % (0-9); % BASOS 1 % (0-3); % EOS 1 % (0-5); % LYMPHS 42 % (24-48); % MONOS 12 % (0-10); % MYELOS 3 % (0-0); % SEGS 19 % (35-66)
[2018-08-07 20:36] LABS: ANISOCYTOSIS SLIGHT; HYPOCHROMIA SLIGHT; PLT ESTIMATE INCREASED (ADEQUATE); POLYCHROMASIA SLIGHT
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
[2018-08-07 20:40] LABS: INFLUENZA A PATIENT NEGATIVE (NEGATIVE); INFLUENZA B PATIENT NEGATIVE (NEGATIVE)
[2018-08-07] MEDS ORDERED: IOHEXOL 300 MG/ML 100ML VIAL. IV ONE (20:45)
[2018-08-07] MEDS ORDERED: CONTRAST GIVEN. MC PRN (20:45)
[2018-08-07 22:19] LABS: BILIRUBIN,URINE NEGATIVE (NEG); CLARITY,URINE CLEAR; COLOR,URINE YELLOW; NITRITE,URINE NEGATIVE (NEG); PH,URINE 5.5; PROTEIN,URINE NEGATIVE (NEG-TRACE); UROBILINOGEN,URINE 0.2 mg/dL (0.2 mg/dL)
[2018-08-07 22:23] LABS: BACTERIA,URINE 0 /HPF (0-FEW); HYALINE CASTS, URINE MODERATE /HPF; RBC,URINE 0 /HPF (0-2); WBC,URINE 0 /HPF (0-4)
[2018-08-07] MEDS ORDERED: ACETAMINOPHEN 325 MG TABLET. PO PRN (23:00)
--- NOTE | 2018-08-07 23:03 | RAD ---
CT abdomen and pelvis with contrast: Reason for examination: Fever. Right lower quadrant pain. Comparison is made to previous study dated 06/03/2018. Helical images were obtained through the abdomen pelvis with intravenous administration of 60 cc Omnipaque 300. Reconstruction was performed in sagittal and coronal planes. Exposure: One or more of the following individualized dose reduction techniques were utilized for this examination: 1. Automated exposure control 2. Adjustment of the mA and/or kV according to patient size 3. Use of iterative reconstruction technique. There is a moderate pleural effusion layering posteriorly in the left hemithorax. There is some minimal linear atelectasis at the right lung base. The heart size is normal with no pericardial effusion. No abnormality seen at the liver, gallbladder, spleen, adrenal glands or pancreas. The kidneys show no renal masses, renal calculi, hydronephrosis or obstructive uropathy. The abdominal aorta and inferior vena cava show no acute abnormalities. There is a small hiatal hernia. No other abnormality seen at the stomach. The small intestinal tract is not abnormally dilated. No abnormality seen at the colon there is no diverticulosis or diverticulitis. The appendix however appears to be distended and there appear to penicillin inflammatory changes and stranding consistent with acute appendicitis. No abnormality seen at the bladder, prostate gland or seminal vesicles. No free fluid is seen in the pelvis. No free air is seen in the abdomen or pelvis. IMPRESSION: Distended appendix with inflammatory change and stranding in the periappendiceal region consistent with acute appendicitis. Moderate pleural effusion in the left lung base. Linear atelectasis at the right lung base. Electronically signed by: Sheila Ortiz MD (08/07/2018 11:00 PM) [facility]
[2018-08-08] VITALS (7 sets, daily range): BP systolic 116–155; BP diastolic 49–76
[2018-08-08] MEDS ORDERED: MORPHINE SULFATE 4 MG/ML VIAL. IV PRN
[2018-08-08] MEDS ORDERED: ONDANSETRON PF 4 MG/2 ML VIAL. IV PRN
[2018-08-08] MEDS: IV NORMAL SALINE 1000ML BAG 1,000 ML IV SCH ×3 (01:18→19:00)
--- NOTE | 2018-08-08 01:30 | NUR ---
Admit Pt arrived via gurney. Pt on neutropenic precaution. Safety, pain management, and comfort discussed with and Pt. Pt verbalized understanding. POC done. Will continue to monitor.
[2018-08-08] MEDS: CEFEPIME HCL IV Push 2 GM VIAL. IVP SCH ×3 (05:41→23:16)
--- NOTE | 2018-08-08 05:41 | EKG ---
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
--- NOTE | 2018-08-08 08:16 | RAD ---
PORTABLE CHEST 1V History: Fever, productive cough, hypertension, lung cancer, recent left lobectomy Comparison: June 21, 2018 Findings: Single view of the chest is submitted. There is a persistent at least small left pleural effusion although somewhat decreased in size. There is no pneumothorax. There is no new infiltrate. There are left perihilar clips as seen previously. There is now a right internal jugular venous catheter with the tip in the inferior aspect of the superior vena cava. There is again old right clavicle fracture. Impression: 1. There is persistent left pleural effusion although somewhat decreased. Electronically signed by: Shabbir Cintron MD (08/08/2018 8:13 AM) [id number]
--- NOTE | 2018-08-08 08:37 | PDOC2 ---
CONSULT Date of Consult Date of Consult DATE: 08/08/18 TIME: 08:26 Reason for Consult Reason for Consult: appendicitis Referring Physician Referring Physician: Dr. Beth Identification/Chief Complaint Chief Complaint RLQ pain Source Source: Caregiver, Chart review, Patient History of Present Illness Reason for Visit: 58 yo M with hx of lung cancer s/p resection in 05/2018. Has been on adjuvant therapy for this, but not been able to receive treatment secondary to neutropenia. Had issues with olgivies after surgery, but had improved with normal bowel function. Did not chronic pain in RLQ since this episode. However , pain worsened yesterday and developed fever, prompting ER evaluation and admission. Patient started on abx. Now reports pain is back down to chronic level of "5", and not noted unless cough or movement. Denies N/V or bowel changes. Past Medical History Cardiovascular: HTN Pulmonary: Pulmonary embolus (multiple DVTs), Other (lung cancer s/p left lung resection, related chronic cough) GI: No pertinent hx Heme/Onc: No pertinent hx Hepatobiliary: No pertinent hx Psych: No pertinent hx Rheumatologic: No pertinent hx Infectious disease: No pertinent hx Renal/: No pertinent hx Endocrine: No pertinent hx Past Surgical History Past Surgical History: Other Family History Family History: No Significant Social History Quit (15 years ago, 50 pack year hx) ALCOHOL: none Drugs: None Current Problem List Problem List Problems Medical Problems: (1) Acute appendicitis Status: Acute Current Medications Current Medications Current Medications Sodium Chloride 1,000 ml @ 1,000 mls/hr 1X ONCE IV Last administered on at 20:11; Start 08/07/18 at 19:45; Stop 08/07/18 at 20:44; Status DC Acetaminophen (Tylenol) 650 mg 1X ONCE PO Last administered on 08/07/18at 20:14 ; Start 08/07/18 at 19:45; Stop 08/07/18 at 19:49; Status DC Cefepime HCl (Maxipime) 2 gm 1X ONCE IVP Last administered on 08/07/18at 21:08 ; Start 08/07/18 at 20:30; Stop 08/07/18 at 20:31; Status DC Sodium Chloride 1,000 ml @ 1,000 mls/hr 1X ONCE IV Last administered on at 21:54; Start 08/07/18 at 20:30; Stop 08/07/18 at 21:29; Status DC Iohexol (Omnipaque 300 Mg/ml) 60 ml 1X ONCE IV Last administered on 08/07/18at 20:51; Start 08/07/18 at 20:45; Stop 08/07/18 at 20:46; Status DC Info (CONTRAST GIVEN -- Rx MONITORING) 1 each PRN DAILY PRN MC SEE COMMENTS; Start 08/07/18 at 20:45; Stop 08/09/18 at 20:44 Sodium Chloride 1,000 ml @ 100 mls/hr Q10H IV Last administered on 08/08/18at 01:18; Start 08/07/18 at 23:00; Stop 08/08/18 at 22:59 Acetaminophen (Tylenol) 650 mg PRN Q4HRS PRN PO FEVER; Start 08/07/18 at 23:00 ; Stop 08/08/18 at 22:59 Cefepime HCl (Maxipime) 2 gm Q8HRS IVP Last administered on 08/08/18at 05:41; Start 08/08/18 at 06:00 Morphine Sulfate (Morphine Sulfate) 4 mg PRN Q3HRS PRN IV PAIN; Start 08/08/18 at 00:00 Ondansetron HCl (Zofran) 4 mg PRN Q6HRS PRN IV NAUSEA/VOMITING; Start 08/08/18 at 00:00 Tbo-Filgrastim (Granix) 480 mcg QHS SQ ; Start 08/08/18 at 07:45 Active Scripts Active Reported Eliquis (Apixaban) 5 Mg Tablet 5 Mg PO BID resume sunday07/03/18 Amlodipine Besylate 10 Mg Tablet 10 Mg PO DAILY Allopurinol 100 Mg Tablet 100 Mg PO BID Allergies Allergies: Coded Allergies: fentanyl (Verified Adverse Reaction, Intermediate, 08/08/18) Respiratory depression. ROS Respiratory: YES: Cough Gastrointestinal: Yes Abdominal Pain Physical Exam General: Alert, Oriented X3, Cooperative, No acute distress HEENT: Atraumatic Lungs: Normal air movement Abdomen: Soft, Other (min TTP RLQ, no masses, no hernia, no peritoneal signs) Skin: No rashes, No breakdown Neuro: Normal speech, Sensation intact Psych/Mental Status: Mental status NL, Mood NL Vitals VITALS Vital Signs Date Time Temp Pulse Resp B/P (MAP) Pulse Ox O2 Delivery O2 Flow Rate FiO2 08/08/18 02:54 98.5 80 16 155/76 (102) 95 Room Air 98.5 Labs Labs Laboratory Tests Test 08/07/18 19:45 08/07/18 20:17 08/07/18 22:15 White Blood Count 2.2 x10^3/uL (4.0-11.0) Red Blood Count 3.29 x10^6/uL (4.30-5.70) Hemoglobin 8.8 g/dL (13.0-17.5) Hematocrit 26.2 % (39.0-53.0) Mean Corpuscular Volume 80 fL (79-100) Mean Corpuscular Hemoglobin 27 pg (25-35) Mean Corpuscular Hemoglobin Concent 33 g/dL (31-37) Red Cell Distribution Width 16.8 % (11.5-14.5) Platelet Count 636 x10^3/uL (140-400) Neutrophils (%) (Auto) 51 % (31-73) Lymphocytes (%) (Auto) 37 % (24-48) Monocytes (%) (Auto) 11 % (0-9) Eosinophils (%) (Auto) 0 % (0-3) Basophils (%) (Auto) 2 % (0-3) Neutrophils # (Auto) 1.1 x10^3uL (1.8-7.7) Lymphocytes # (Auto) 0.8 x10^3/uL (1.0-4.8) Monocytes # (Auto) 0.2 x10^3/uL (0.0-1.1) Eosinophils # (Auto) 0.0 x10^3/uL (0.0-0.7) Basophils # (Auto) 0.0 x10^3/uL (0.0-0.2) Segmented Neutrophils % 19 % (35-66) Band Neutrophils % 22 % (0-9) Lymphocytes % 42 % (24-48) Monocytes % 12 % (0-10) Eosinophils % 1 % (0-5) Basophils % 1 % (0-3) Myelocytes % 3 % (0-0) Platelet Estimate Increased (ADEQUATE) Giant Platelets Few Polychromasia Slight Hypochromasia Slight Anisocytosis Slight Sodium Level 131 mmol/L (136-145) Potassium Level 3.5 mmol/L (3.5-5.1) Chloride Level 94 mmol/L (98-107) Carbon Dioxide Level 26 mmol/L (21-32) Anion Gap 11 (6-14) Blood Urea Nitrogen 18 mg/dL (8-26) Creatinine 1.4 mg/dL (0.7-1.3) Estimated GFR (Cockcroft-Gault) 52.1 BUN/Creatinine Ratio 13 (6-20) Glucose Level 119 mg/dL (70-99) Lactic Acid Level 0.7 mmol/L (0.4-2.0) Calcium Level 9.1 mg/dL (8.5-10.1) Total Bilirubin 0.3 mg/dL (0.2-1.0) Aspartate Amino Transf (AST/SGOT) 17 U/L (15-37) Alanine Aminotransferase (ALT/SGPT) 23 U/L (16-63) Alkaline Phosphatase 82 U/L (46-116) Troponin I Quantitative 0.018 ng/mL (0.000-0.055) TG-Xcg-M-Type Natriuretic Peptide 1658 pg/mL (0-124) Total Protein 6.9 g/dL (6.4-8.2) Albumin 2.8 g/dL (3.4-5.0) Albumin/Globulin Ratio 0.7 (1.0-1.7) Lipase 80 U/L (73-393) Procalcitonin 0.54 ng/mL (0.00-0.10) Influenza Type A Antigen Negative (NEGATIVE) Influenza Type B Antigen Negative (NEGATIVE) Urine Collection Type Unknown Urine Color Yellow Urine Clarity Clear Urine pH 5.5 Urine Specific [place] >=1.030 Urine Protein Negative mg/dL (NEG-TRACE) Urine Glucose (UA) Negative mg/dL (NEG) Urine Ketones (Stick) Negative mg/dL (NEG) Urine Blood Negative (NEG) Urine Nitrite Negative (NEG) Urine Bilirubin Negative (NEG) Urine Urobilinogen Dipstick 0.2 mg/dL (0.2 mg/dL) Urine Leukocyte Esterase Negative (NEG) Urine RBC 0 /HPF (0-2) Urine WBC 0 /HPF (0-4) Urine Bacteria 0 /HPF (0-FEW) Urine Hyaline Casts Moderate /HPF Urine Mucus Mod /LPF Laboratory Tests Test 08/07/18 19:45 08/07/18 20:17 08/07/18 22:15 White Blood Count 2.2 x10^3/uL (4.0-11.0) Red Blood Count 3.29 x10^6/uL (4.30-5.70) Hemoglobin 8.8 g/dL (13.0-17.5) Hematocrit 26.2 % (39.0-53.0) Mean Corpuscular Volume 80 fL (79-100) Mean Corpuscular Hemoglobin 27 pg (25-35) Mean Corpuscular Hemoglobin Concent 33 g/dL (31-37) Red Cell Distribution Width 16.8 % (11.5-14.5) Platelet Count 636 x10^3/uL (140-400) Neutrophils (%) (Auto) 51 % (31-73) Lymphocytes (%) (Auto) 37 % (24-48) Monocytes (%) (Auto) 11 % (0-9) Eosinophils (%) (Auto) 0 % (0-3) Basophils (%) (Auto) 2 % (0-3) Neutrophils # (Auto) 1.1 x10^3uL (1.8-7.7) Lymphocytes # (Auto) 0.8 x10^3/uL (1.0-4.8) Monocytes # (Auto) 0.2 x10^3/uL (0.0-1.1) Eosinophils # (Auto) 0.0 x10^3/uL (0.0-0.7) Basophils # (Auto) 0.0 x10^3/uL (0.0-0.2) Segmented Neutrophils % 19 % (35-66) Band Neutrophils % 22 % (0-9) Lymphocytes % 42 % (24-48) Monocytes % 12 % (0-10) Eosinophils % 1 % (0-5) Basophils % 1 % (0-3) Myelocytes % 3 % (0-0) Platelet Estimate Increased (ADEQUATE) Giant Platelets Few Polychromasia Slight Hypochromasia Slight Anisocytosis Slight Sodium Level 131 mmol/L (136-145) Potassium Level 3.5 mmol/L (3.5-5.1) Chloride Level 94 mmol/L (98-107) Carbon Dioxide Level 26 mmol/L (21-32) Anion Gap 11 (6-14) Blood Urea Nitrogen 18 mg/dL (8-26) Creatinine 1.4 mg/dL (0.7-1.3) Estimated GFR (Cockcroft-Gault) 52.1 BUN/Creatinine Ratio 13 (6-20) Glucose Level 119 mg/dL (70-99) Lactic Acid Level 0.7 mmol/L (0.4-2.0) Calcium Level 9.1 mg/dL (8.5-10.1) Total Bilirubin 0.3 mg/dL (0.2-1.0) Aspartate Amino Transf (AST/SGOT) 17 U/L (15-37) Alanine Aminotransferase (ALT/SGPT) 23 U/L (16-63) Alkaline Phosphatase 82 U/L (46-116) Troponin I Quantitative 0.018 ng/mL (0.000-0.055) DS-Wsp-V-Type Natriuretic Peptide 1658 pg/mL (0-124) Total Protein 6.9 g/dL (6.4-8.2) Albumin 2.8 g/dL (3.4-5.0) Albumin/Globulin Ratio 0.7 (1.0-1.7) Lipase 80 U/L (73-393) Procalcitonin 0.54 ng/mL (0.00-0.10) Influenza Type A Antigen Negative (NEGATIVE) Influenza Type B Antigen Negative (NEGATIVE) Urine Collection Type Unknown Urine Color Yellow Urine Clarity Clear Urine pH 5.5 Urine Specific [place] >=1.030 Urine Protein Negative mg/dL (NEG-TRACE) Urine Glucose (UA) Negative mg/dL (NEG) Urine Ketones (Stick) Negative mg/dL (NEG) Urine Blood Negative (NEG) Urine Nitrite Negative (NEG) Urine Bilirubin Negative (NEG) Urine Urobilinogen Dipstick 0.2 mg/dL (0.2 mg/dL) Urine Leukocyte Esterase Negative (NEG) Urine RBC 0 /HPF (0-2) Urine WBC 0 /HPF (0-4) Urine Bacteria 0 /HPF (0-FEW) Urine Hyaline Casts Moderate /HPF Urine Mucus Mod /LPF Images Images CT c/w appendicitis with inflammation and distention of appendix, no perforation Assessment/Plan Assessment/Plan Appendicitis agree with IV abx. Debate ongoing in surgical literature of abx vs surgery for uncomplicated appendicitis. Majority opinion, at this time, favors operative intervention, but given this patient's multiple comorbidities (neutropenia, electrolyte abnormalities, PE/DVT) would favor abx alone. Pt clinically improved this AM, but will need close continued observation. Will value ID and hematology opinion as well. Would maintain off anticoagulation currently, as surgery may still be needed, but will attempt to resume MANOJ if continued clinical improvement. Will try clears as well. Given pt chronic RLQ pain and incidence of appendiceal cancer, would favor appendectomy, at some point. However, would favor once completed other therapy. D/w pt and pt's supportive . Thanks for consult! VIVIAN BRADLEY MD Aug 08, 2018 08:37
[2018-08-08] MEDS: TBO-FILGRASTIM 480 MCG/0.8 ML SYRINGE. SQ SCH ×2 (09:30→21:00)
--- NOTE | 2018-08-08 09:43 | PDOC ---
Provider Note Provider Note Pt seen and examined ID consult dictated Thank you ALEXANDRO LOWERY MD Aug 08, 2018 09:43
[2018-08-08] MEDS ORDERED: LIDO:MAALOX:BENADRYL 1:1:1 180 ML BOTTLE. PO PRN (10:15)
[2018-08-08] MEDS ORDERED: ANTI-COAG MONITOR BY PHARMACY. MC PRN (10:30)
[2018-08-08] MEDS: APIXABAN 5 MG TABLET. PO SCH ×2 (12:19→21:29)
--- NOTE | 2018-08-08 17:33 | PDOC1 ---
History and Physical Date of Admission Date of Admission DATE: 08/08/18 TIME: 17:11 Identification/Chief Complaint Chief Complaint fever Source Source: Chart review, Patient History of Present Illness History of Present Illness 58 year old CM hx of lung cancer s/p lobectomy currently on chemo who who presents with a fever of 101.8. told by oncologost to come to ED. ast chemo treatment was last Sunday and scheduled for treatment today. reports RLQ pain since 2 day. Denies CP, vomiting. patient with hx of PE dx fall 2017 on eloquis. last dose was this morning. in ED Ct abdomen performed which revealed Distended appendix with inflammatory change and stranding in the periappendiceal region consistent with acute appendicitis. chest xray did not show acute infiltrate. hospitalist called for admission and further evaluation. Past Medical History Cardiovascular: HTN Pulmonary: Pulmonary embolus (multiple DVTs), Other (lung cancer s/p left lung resection, related chronic cough) GI: No pertinent hx Heme/Onc: No pertinent hx Hepatobiliary: No pertinent hx Psych: No pertinent hx Rheumatologic: No pertinent hx Infectious disease: No pertinent hx Renal/: No pertinent hx Endocrine: No pertinent hx Past Surgical History Past Surgical History: Other Family History Family History: No Significant Social History Smoke: Quit (15 years ago, 50 pack year hx) ALCOHOL: none Drugs: None Current Problem List Problem List Problems Medical Problems: (1) Acute appendicitis Status: Acute Current Medications Current Medications Current Medications Sodium Chloride 1,000 ml @ 1,000 mls/hr 1X ONCE IV Last administered on at 20:11; Start 08/07/18 at 19:45; Stop 08/07/18 at 20:44; Status DC Acetaminophen (Tylenol) 650 mg 1X ONCE PO Last administered on 08/07/18at 20:14 ; Start 08/07/18 at 19:45; Stop 08/07/18 at 19:49; Status DC Cefepime HCl (Maxipime) 2 gm 1X ONCE IVP Last administered on 08/07/18at 21:08 ; Start 08/07/18 at 20:30; Stop 08/07/18 at 20:31; Status DC Sodium Chloride 1,000 ml @ 1,000 mls/hr 1X ONCE IV Last administered on at 21:54; Start 08/07/18 at 20:30; Stop 08/07/18 at 21:29; Status DC Iohexol (Omnipaque 300 Mg/ml) 60 ml 1X ONCE IV Last administered on 08/07/18at 20:51; Start 08/07/18 at 20:45; Stop 08/07/18 at 20:46; Status DC Info (CONTRAST GIVEN -- Rx MONITORING) 1 each PRN DAILY PRN MC SEE COMMENTS; Start 08/07/18 at 20:45; Stop 08/09/18 at 20:44 Sodium Chloride 1,000 ml @ 100 mls/hr Q10H IV Last administered on 08/08/18at 01:18; Start 08/07/18 at 23:00; Stop 08/08/18 at 22:59 Acetaminophen (Tylenol) 650 mg PRN Q4HRS PRN PO FEVER Last administered on 08/08 15:26; Start 08/07/18 at 23:00; Stop 08/08/18 at 22:59 Cefepime HCl (Maxipime) 2 gm Q8HRS IVP Last administered on 08/08/18 15:26; Start 08/08/18 at 06:00 Morphine Sulfate (Morphine Sulfate) 4 mg PRN Q3HRS PRN IV PAIN; Start 08/08/18 at 00:00 Ondansetron HCl (Zofran) 4 mg PRN Q6HRS PRN IV NAUSEA/VOMITING; Start 08/08/18 at 00:00 Tbo-Filgrastim (Granix) 480 mcg QHS SQ Last administered on 08/08/18 09:30; Start 08/08/18 at 07:45 Metronidazole 100 ml @ 100 mls/hr Q12HR IV Last administered on 08/08/18at 12: 20; Start 08/08/18 at 10:00 Multi-Ingredient Mouthwash/Gargle (Magic Mouthwash) 10 ml PRN QID PRN PO MOUTH PAIN; Start 08/08/18 at 10:15 Apixaban (Eliquis) 5 mg BID PO Last administered on 08/08/18 12:19; Start at 10:30 Info (Anti-Coagulation Monitoring By Pharmacy) 1 each PRN DAILY PRN MC SEE COMMENTS Last administered on 08/08/18at 14:22; Start 08/08/18 at 10:30 Active Scripts Active Reported Eliquis (Apixaban) 5 Mg Tablet 5 Mg PO BID resume sunday07/03/18 Amlodipine Besylate 10 Mg Tablet 10 Mg PO DAILY Allopurinol 100 Mg Tablet 100 Mg PO BID Allergies Allergies: Coded Allergies: fentanyl (Verified Adverse Reaction, Intermediate, 08/08/18) Respiratory depression. ROS Review of System CONSTITUTIONAL: No fever or chills EYES: No recent changes SKIN: No rash or itching CARDIOVASCULAR: No chest pain, syncope, palpitations, or edema RESPIRATORY: No SOB or cough GASTROINTESTINAL: No nausea, vomiting or abdominal pain NEUROLOGICAL: No headaches or weakness ENDOCRINE: No cold or heat intolerance GENITOURINARY: No urgency or frequency of urination MUSCULOSKELETAL: No back pain or joint pain LYMPHATICS: No enlarged lymph nodes PSYCHIATRIC: No anxiety or depression Physical Exam Physical Exam GENERAL: No apparent distress. Alert and oriented. HEENT: Head normocephalic, atraumatic. NECK: Supple LUNGS: Clear to auscultation. HEART: RRR, S1, S2 present, pulses intact ABDOMEN: Soft, positive bowel sounds. EXTREMITIES: No cyanosis or edema. NEUROLOGIC: Normal speech, normal tone PSYCHIATRIC: Normal affect, normal mood. SKIN: No ulceration. Vitals Vitals Vital Signs Date Time Temp Pulse Resp B/P (MAP) Pulse Ox O2 Delivery O2 Flow Rate FiO2 08/08/18 16:58 99.1 99.1 08/08/18 15:00 86 18 130/52 (78) 95 Room Air Labs Labs Laboratory Tests Test 08/07/18 19:45 08/07/18 20:17 08/07/18 22:15 White Blood Count 2.2 x10^3/uL (4.0-11.0) Red Blood Count 3.29 x10^6/uL (4.30-5.70) Hemoglobin 8.8 g/dL (13.0-17.5) Hematocrit 26.2 % (39.0-53.0) Mean Corpuscular Volume 80 fL (79-100) Mean Corpuscular Hemoglobin 27 pg (25-35) Mean Corpuscular Hemoglobin Concent 33 g/dL (31-37) Red Cell Distribution Width 16.8 % (11.5-14.5) Platelet Count 636 x10^3/uL (140-400) Neutrophils (%) (Auto) 51 % (31-73) Lymphocytes (%) (Auto) 37 % (24-48) Monocytes (%) (Auto) 11 % (0-9) Eosinophils (%) (Auto) 0 % (0-3) Basophils (%) (Auto) 2 % (0-3) Neutrophils # (Auto) 1.1 x10^3uL (1.8-7.7) Lymphocytes # (Auto) 0.8 x10^3/uL (1.0-4.8) Monocytes # (Auto) 0.2 x10^3/uL (0.0-1.1) Eosinophils # (Auto) 0.0 x10^3/uL (0.0-0.7) Basophils # (Auto) 0.0 x10^3/uL (0.0-0.2) Segmented Neutrophils % 19 % (35-66) Band Neutrophils % 22 % (0-9) Lymphocytes % 42 % (24-48) Monocytes % 12 % (0-10) Eosinophils % 1 % (0-5) Basophils % 1 % (0-3) Myelocytes % 3 % (0-0) Platelet Estimate Increased (ADEQUATE) Giant Platelets Few Polychromasia Slight Hypochromasia Slight Anisocytosis Slight Sodium Level 131 mmol/L (136-145) Potassium Level 3.5 mmol/L (3.5-5.1) Chloride Level 94 mmol/L (98-107) Carbon Dioxide Level 26 mmol/L (21-32) Anion Gap 11 (6-14) Blood Urea Nitrogen 18 mg/dL (8-26) Creatinine 1.4 mg/dL (0.7-1.3) Estimated GFR (Cockcroft-Gault) 52.1 BUN/Creatinine Ratio 13 (6-20) Glucose Level 119 mg/dL (70-99) Lactic Acid Level 0.7 mmol/L (0.4-2.0) Calcium Level 9.1 mg/dL (8.5-10.1) Total Bilirubin 0.3 mg/dL (0.2-1.0) Aspartate Amino Transf (AST/SGOT) 17 U/L (15-37) Alanine Aminotransferase (ALT/SGPT) 23 U/L (16-63) Alkaline Phosphatase 82 U/L (46-116) Troponin I Quantitative 0.018 ng/mL (0.000-0.055) GD-Tlg-G-Type Natriuretic Peptide 1658 pg/mL (0-124) Total Protein 6.9 g/dL (6.4-8.2) Albumin 2.8 g/dL (3.4-5.0) Albumin/Globulin Ratio 0.7 (1.0-1.7) Lipase 80 U/L (73-393) Procalcitonin 0.54 ng/mL (0.00-0.10) Influenza Type A Antigen Negative (NEGATIVE) Influenza Type B Antigen Negative (NEGATIVE) Urine Collection Type Unknown Urine Color Yellow Urine Clarity Clear Urine pH 5.5 Urine Specific [place] >=1.030 Urine Protein Negative mg/dL (NEG-TRACE) Urine Glucose (UA) Negative mg/dL (NEG) Urine Ketones (Stick) Negative mg/dL (NEG) Urine Blood Negative (NEG) Urine Nitrite Negative (NEG) Urine Bilirubin Negative (NEG) Urine Urobilinogen Dipstick 0.2 mg/dL (0.2 mg/dL) Urine Leukocyte Esterase Negative (NEG) Urine RBC 0 /HPF (0-2) Urine WBC 0 /HPF (0-4) Urine Bacteria 0 /HPF (0-FEW) Urine Hyaline Casts Moderate /HPF Urine Mucus Mod /LPF Laboratory Tests Test 08/07/18 19:45 08/07/18 20:17 08/07/18 22:15 White Blood Count 2.2 x10^3/uL (4.0-11.0) Red Blood Count 3.29 x10^6/uL (4.30-5.70) Hemoglobin 8.8 g/dL (13.0-17.5) Hematocrit 26.2 % (39.0-53.0) Mean Corpuscular Volume 80 fL (79-100) Mean Corpuscular Hemoglobin 27 pg (25-35) Mean Corpuscular Hemoglobin Concent 33 g/dL (31-37) Red Cell Distribution Width 16.8 % (11.5-14.5) Platelet Count 636 x10^3/uL (140-400) Neutrophils (%) (Auto) 51 % (31-73) Lymphocytes (%) (Auto) 37 % (24-48) Monocytes (%) (Auto) 11 % (0-9) Eosinophils (%) (Auto) 0 % (0-3) Basophils (%) (Auto) 2 % (0-3) Neutrophils # (Auto) 1.1 x10^3uL (1.8-7.7) Lymphocytes # (Auto) 0.8 x10^3/uL (1.0-4.8) Monocytes # (Auto) 0.2 x10^3/uL (0.0-1.1) Eosinophils # (Auto) 0.0 x10^3/uL (0.0-0.7) Basophils # (Auto) 0.0 x10^3/uL (0.0-0.2) Segmented Neutrophils % 19 % (35-66) Band Neutrophils % 22 % (0-9) Lymphocytes % 42 % (24-48) Monocytes % 12 % (0-10) Eosinophils % 1 % (0-5) Basophils % 1 % (0-3) Myelocytes % 3 % (0-0) Platelet Estimate Increased (ADEQUATE) Giant Platelets Few Polychromasia Slight Hypochromasia Slight Anisocytosis Slight Sodium Level 131 mmol/L (136-145) Potassium Level 3.5 mmol/L (3.5-5.1) Chloride Level 94 mmol/L (98-107) Carbon Dioxide Level 26 mmol/L (21-32) Anion Gap 11 (6-14) Blood Urea Nitrogen 18 mg/dL (8-26) Creatinine 1.4 mg/dL (0.7-1.3) Estimated GFR (Cockcroft-Gault) 52.1 BUN/Creatinine Ratio 13 (6-20) Glucose Level 119 mg/dL (70-99) Lactic Acid Level 0.7 mmol/L (0.4-2.0) Calcium Level 9.1 mg/dL (8.5-10.1) Total Bilirubin 0.3 mg/dL (0.2-1.0) Aspartate Amino Transf (AST/SGOT) 17 U/L (15-37) Alanine Aminotransferase (ALT/SGPT) 23 U/L (16-63) Alkaline Phosphatase 82 U/L (46-116) Troponin I Quantitative 0.018 ng/mL (0.000-0.055) OR-Hrw-K-Type Natriuretic Peptide 1658 pg/mL (0-124) Total Protein 6.9 g/dL (6.4-8.2) Albumin 2.8 g/dL (3.4-5.0) Albumin/Globulin Ratio 0.7 (1.0-1.7) Lipase 80 U/L (73-393) Procalcitonin 0.54 ng/mL (0.00-0.10) Influenza Type A Antigen Negative (NEGATIVE) Influenza Type B Antigen Negative (NEGATIVE) Urine Collection Type Unknown Urine Color Yellow Urine Clarity Clear Urine pH 5.5 Urine Specific [place] >=1.030 Urine Protein Negative mg/dL (NEG-TRACE) Urine Glucose (UA) Negative mg/dL (NEG) Urine Ketones (Stick) Negative mg/dL (NEG) Urine Blood Negative (NEG) Urine Nitrite Negative (NEG) Urine Bilirubin Negative (NEG) Urine Urobilinogen Dipstick 0.2 mg/dL (0.2 mg/dL) Urine Leukocyte Esterase Negative (NEG) Urine RBC 0 /HPF (0-2) Urine WBC 0 /HPF (0-4) Urine Bacteria 0 /HPF (0-FEW) Urine Hyaline Casts Moderate /HPF Urine Mucus Mod /LPF VTE Prophylaxis Ordered VTE Prophylaxis Devices: Yes VTE Pharmacological Prophylaxi: Yes Assessment/Plan Assessment/Plan ASSESSMENT Fever Abdominal pain secondary to Acute Appendicitis Lung Cancer s/p lobectomy currently on chemo Leukopenia Hx of PE on oral AC PLAN admit to medical floor bed no plans for surgery continue IV abx with flagyl and cefepime for now currently afebrile resume oral AC since no plans for sx follow labs apprec ID, Sx, and hem onc dvt ppx: on oral ac full code MILO ROWLAND MD Aug 08, 2018 17:33
--- NOTE | 2018-08-08 21:17 | NUR ---
Pankaj held tonight. Patient had today's dose at 0930. Will start HS dosing tomorrow.
--- NOTE | 2018-08-08 22:15 | CONS ---
DATE OF CONSULTATION: 08/08/2018 REFERRING PHYSICIAN: Dr. Urena. REASON FOR CONSULTATION: Antibiotic management. 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 The patient had fever of 100.4, which started yesterday. His last chemotherapy was last Sunday. The patient was scheduled for another chemotherapy on 08/07/2018, but as his white count was low and creatinine was abnormal, he was asked to come to the ER. He also has chronic cough producing clear sputum since his last surgery on 05/22/2018, but is improving. He denies any chills. Denies any sick contact. Denies any headache, sore throat, difficulty swallowing, nausea, vomiting, diarrhea, abdominal pain, symptoms. Denies being on any antibiotics since last admission. Denies any trouble with Port-A-Cath in the right chest wall. The patient started having worsening right lower quadrant pain over the last 2 days. He had colonic pseudoobstruction in 05/2018 after surgery, but the pain was getting better, almost gone, except for one area, which continues to remain the same. Pain is localized mainly in the right lower quadrant, mid quadrant. He has bowel movements with MiraLax, was one every other day. Currently, he is having 1 every week. Denies any blood in the stool. Appetite is somewhat poor due to a change in the taste buds from chemotherapy. He has lost 25 pounds since his last surgery. The patient was febrile at 100.7. White count was 2.2. Creatinine was 1.4 with a procalcitonin of 0.54. BNP was 1658. Albumin was 2.8. He underwent CT of the abdomen, which showed distended appendix with inflammatory change and stranding in the periappendiceal region consistent with acute appendicitis, moderate pleural effusion in the left lung base, linear atelectasis in the right lung base. Chest x-ray showed persistent left pleural effusion, although somewhat decreased. ID consulted. The patient was started on IV cefepime. ID consult has been requested for antibiotic management. The patient today is feeling a little better. He does have some right lower quadrant and mid quadrant abdominal pain, sharp, has had some nausea, no vomiting, no diarrhea. Has bowel movements once a week unless he takes MiraLax with which he had one every other day. No blood in stool. No melena, no hematochezia. PAST MEDICAL HISTORY: DVT, PE, hypertension, hyperlipidemia, adeno CA of the lung, left posterolateral thoracotomy with left upper lobectomy and mediastinal lymph node dissection on chemo. Port-A-Cath in place. FAMILY HISTORY: As per HPI. SOCIAL HISTORY: Denies smoking, ETOH, or illicit drug use. 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 , two adult sons. History of chewing tobacco, quit earlier this year and a history of ETOH use currently, quit. The patient has 3 cats. Does not do any of the cat care per at bedside. REVIEW OF SYSTEMS: Negative except for above in HPI. PHYSICAL EXAMINATION: VITAL SIGNS: Temperature 100.7, current temperature 99.0, pulse 82, respiratory rate 18, blood pressure 124/50, oxygen saturation 95% on room air. GENERAL: Well-developed, well-nourished male, pleasant, in no acute distress, lying comfortably in bed. HEENT: Normocephalic, atraumatic. Oral lesions in lateral tongue. No thrush. No exudate. NECK: Supple, no JVD. LUNGS: Decreased breath sounds at the bases, left greater than the right. No wheezing. HEART: S1, S2 with no gallops or murmurs. ABDOMEN: Soft. Mild tenderness present in the right lower and mid quadrant. No rebound. No guarding. No masses felt. EXTREMITIES: No edema, no cyanosis. DERM: Warm, dry, no generalized rash. NEUROLOGIC: Alert and oriented x 3. Grossly nonfocal. PSYCHIATRIC: Cooperative, appropriate mood and affect. Right chest wall Port-A-Cath site looks okay. MUSCULOSKELETAL: No joint effusion. No decrease in range of motion. LABORATORY DATA: WBC 2.2, hemoglobin 8.8, hematocrit 26.2, platelets 636. Sodium 131, potassium 3.5, chloride 94, bicarbonate 26, BUN 18, creatinine 1.4, glucose 119. Lactate 0.7, calcium 9.1. LFTs within normal limits. BNP 1658, albumin 2.8, lipase 80. Procalcitonin 0.54. Influenza screen negative. UA negative. IMAGING: Chest x-ray: No acute cardiopulmonary abnormality except for a persistent left pleural effusion, although somewhat decreased. No pneumothorax. Left perihilar clips as previously seen. Right IJ with tip in the inferior aspect of the superior vena cava, old right clavicle fracture. CT abdomen and pelvis shows distended appendix with inflammatory change and stranding in the periappendiceal region consistent with acute appendicitis, moderate pleural effusion in the left lung base, linear atelectasis at the right lung base. IMPRESSION: 1. Febrile illness 2. Appendicitis. 3. Neutropenia from Chemotherapy 4. Adenocarcinoma of lung, on chemotherapy through Port-A-Cath, right chest wall, last chemo on 07/31/2018. 5. History of colon polyp. History of colonic pseudoobstruction in 05/2018. 6. History of pulmonary embolism. 8. Acute kidney injury. RECOMMENDATIONS: 1. Continue empiric cefepime. 2. We will add Flagyl for anaerobic coverage. 3. General Surgery is consulted. Recommendations noted. 4. Follow up cultures and susceptibility results. 5. Follow up labs in a.m. 6. Continue supportive care. Discussed with at bedside. D/W RN Thank you, Dr. Urena, for consulting Infectious Disease to participate in this patient's care. We will follow along with you. ALEXANDRO LOWERY MD DR: TAM/caridad JOB#: [id number] / [id number] [place]
[2018-08-09 03:15] VITALS: BP 120/52
--- NOTE | 2018-08-09 04:12 | CONS ---
DATE OF CONSULTATION: 08/08/2018 REQUESTING PHYSICIAN: Dr. Yunior Beth. REASON FOR CONSULTATION: Lung cancer, on adjuvant chemotherapy, now admitted with neutropenic fever. 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 He was initially diagnosed by biopsy on 04/04/2018. He was started on adjuvant chemotherapy with cisplatin and vinorelbine in 06/2018. He has required recurrent dose delays due to neutropenia with cycle #1. He was admitted to [facility] on 08/07/2018 with complaints of fever. He was started on IV antibiotics and Infectious Disease consultation was also obtained. He underwent a chest x-ray on 08/07/2018 that revealed decreased left pleural effusion. CT abdomen and pelvis on 08/07/2018 revealed distended appendix consistent with acute appendicitis. Surgical consultation was obtained and conservative management was recommended for now. The patient is also on Eliquis because of pulmonary embolism and recurrent bilateral lower extremity DVT. PAST MEDICAL HISTORY: DVT, pulmonary embolism, gout, hypertension, osteomyelitis, premature ventricular contraction. FAMILY HISTORY: Positive for prostate cancer and liver cancer. SOCIAL HISTORY: He has smoked 2 packs a day for 25 years and has quit smoking. REVIEW OF SYSTEMS: A 12-point review of system was performed. Pertinent positives are mentioned in the history of present illness. Rest of the system review is negative. PHYSICAL EXAMINATION: GENERAL APPEARANCE: The patient is a 58-year-old gentleman who is in no acute cardiorespiratory distress. VITAL SIGNS: Blood pressure 116/49, temperature 98.6. HEAD: Atraumatic, normocephalic. EYES: No icterus. NECK: Supple. CHEST: Bilaterally symmetrical. No crepitations or rhonchi heard. HEART: S1, S2 normal. ABDOMEN: Soft, nontender. Mild tenderness in the right lower quadrant to deep palpation. CENTRAL NERVOUS SYSTEM: No focal deficits. LYMPHATICS: No lymphadenopathy. SKIN: No rashes. PSYCHOLOGIC: Mood and affect are appropriate. LABORATORY DATA: WBC 2.2, hemoglobin 8.8, platelet count 636, creatinine 1.4. IMPRESSION AND PLAN: 1. 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 He was started on adjuvant chemotherapy with cisplatin and Navelbine in 06/2018, which has been complicated with persistent neutropenia requiring dose delays. He is now admitted with neutropenic fever, which is a complication of chemotherapy. Plan to resume chemotherapy after the current acute events are resolved and he will follow up with Dr. Delgadillo as outpatient for continuation of chemotherapy. 2. Neutropenic fever. I will consult Infectious Diseases. I will also start him on Granix 480 mcg at bedtime. 3. 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 He is on Eliquis, which has been on hold for possible surgery for appendicitis. 4. Appendicitis. Appreciate consultation by Dr. Ohara. Dr. Ohara has recommended conservative management for now in view of his comorbidities. He may need surgery in the future. I discussed with Dr. Nogueira. BAHMAN MARINELLI MD DR: MILAGRO/caridad JOB#: [id number] / [id number] PA
[2018-08-09 04:54] LABS: BASO # 0.1 x10^3/uL (0.0-0.2); BASO % 1 % (0-3); EOS % 0 % (0-3); HEMATOCRIT 22.5 % (39.0-53.0); HEMOGLOBIN 7.6 g/dL (13.0-17.5); LYMPH # 1.6 x10^3/uL (1.0-4.8); LYMPH % 17 % (24-48); MEAN CORPUSCULAR HEMOGLOBIN 27 pg (25-35); MEAN CORPUSCULAR HGB CONC 34 g/dL (31-37); MEAN CORPUSCULAR VOLUME 80 fL (79-100); MONO # 1.1 x10^3/uL (0.0-1.1); MONO % 11 % (0-9); NEUT # 6.9 x10^3uL (1.8-7.7); NEUT % 72 % (31-73); PLATELET COUNT 540 x10^3/uL (140-400); RED BLOOD COUNT 2.81 x10^6/uL (4.30-5.70); RED CELL DISTRIBUTION WIDTH 16.9 % (11.5-14.5); WHITE BLOOD COUNT 9.6 x10^3/uL (4.0-11.0)
[2018-08-09 05:03] LABS: CALCIUM 8.5 mg/dL (8.5-10.1); CREATININE 1.2 mg/dL (0.7-1.3); GFR 62.2; POTASSIUM 3.5 mmol/L (3.5-5.1)
[2018-08-09] MEDS: CEFEPIME HCL IV Push 2 GM VIAL. IVP SCH (06:24)
[2018-08-09 07:00] VITALS: BP 109/53
--- NOTE | 2018-08-09 08:25 | PDOC ---
SURGICAL PROGRESS NOTE Subjective Pt feels better, doesn't hurt with cough anymore, veronica reg diet, passing flatus Vital Signs Vital Signs Date Time Temp Pulse Resp B/P (MAP) Pulse Ox O2 Delivery O2 Flow Rate FiO2 08/09/18 03:15 98.8 84 16 120/52 (74) 95 Room Air 98.8 I&O Intake and Output 08/09/18 07:00 Intake Total 1260 ml Output Total 750 ml Balance 510 ml Intake Oral 1260 ml Output Urine Total 750 ml # Voids 2 General: Alert, Oriented X3, Cooperative, No acute distress Abdomen: Soft, No tenderness Labs Laboratory Tests Test 08/07/18 19:45 08/07/18 20:17 08/07/18 22:15 08/09/18 04:00 White Blood Count 2.2 x10^3/uL (4.0-11.0) 9.6 x10^3/uL (4.0-11.0) Red Blood Count 3.29 x10^6/uL (4.30-5.70) 2.81 x10^6/uL (4.30-5.70) Hemoglobin 8.8 g/dL (13.0-17.5) 7.6 g/dL (13.0-17.5) Hematocrit 26.2 % (39.0-53.0) 22.5 % (39.0-53.0) Mean Corpuscular Volume 80 fL (79-100) 80 fL (79-100) Mean Corpuscular Hemoglobin 27 pg (25-35) 27 pg (25-35) Mean Corpuscular Hemoglobin Concent 33 g/dL (31-37) 34 g/dL (31-37) Red Cell Distribution Width 16.8 % (11.5-14.5) 16.9 % (11.5-14.5) Platelet Count 636 x10^3/uL (140-400) 540 x10^3/uL (140-400) Neutrophils (%) (Auto) 51 % (31-73) 72 % (31-73) Lymphocytes (%) (Auto) 37 % (24-48) 17 % (24-48) Monocytes (%) (Auto) 11 % (0-9) 11 % (0-9) Eosinophils (%) (Auto) 0 % (0-3) 0 % (0-3) Basophils (%) (Auto) 2 % (0-3) 1 % (0-3) Neutrophils # (Auto) 1.1 x10^3uL (1.8-7.7) 6.9 x10^3uL (1.8-7.7) Lymphocytes # (Auto) 0.8 x10^3/uL (1.0-4.8) 1.6 x10^3/uL (1.0-4.8) Monocytes # (Auto) 0.2 x10^3/uL (0.0-1.1) 1.1 x10^3/uL (0.0-1.1) Eosinophils # (Auto) 0.0 x10^3/uL (0.0-0.7) 0.0 x10^3/uL (0.0-0.7) Basophils # (Auto) 0.0 x10^3/uL (0.0-0.2) 0.1 x10^3/uL (0.0-0.2) Segmented Neutrophils % 19 % (35-66) Band Neutrophils % 22 % (0-9) Lymphocytes % 42 % (24-48) Monocytes % 12 % (0-10) Eosinophils % 1 % (0-5) Basophils % 1 % (0-3) Myelocytes % 3 % (0-0) Platelet Estimate Increased (ADEQUATE) Giant Platelets Few Polychromasia Slight Hypochromasia Slight Anisocytosis Slight Sodium Level 131 mmol/L (136-145) 136 mmol/L (136-145) Potassium Level 3.5 mmol/L (3.5-5.1) 3.5 mmol/L (3.5-5.1) Chloride Level 94 mmol/L (98-107) 99 mmol/L (98-107) Carbon Dioxide Level 26 mmol/L (21-32) 27 mmol/L (21-32) Anion Gap 11 (6-14) 10 (6-14) Blood Urea Nitrogen 18 mg/dL (8-26) 15 mg/dL (8-26) Creatinine 1.4 mg/dL (0.7-1.3) 1.2 mg/dL (0.7-1.3) Estimated GFR (Cockcroft-Gault) 52.1 62.2 BUN/Creatinine Ratio 13 (6-20) Glucose Level 119 mg/dL (70-99) 90 mg/dL (70-99) Lactic Acid Level 0.7 mmol/L (0.4-2.0) Calcium Level 9.1 mg/dL (8.5-10.1) 8.5 mg/dL (8.5-10.1) Total Bilirubin 0.3 mg/dL (0.2-1.0) Aspartate Amino Transf (AST/SGOT) 17 U/L (15-37) Alanine Aminotransferase (ALT/SGPT) 23 U/L (16-63) Alkaline Phosphatase 82 U/L (46-116) Troponin I Quantitative 0.018 ng/mL (0.000-0.055) TP-Eyy-G-Type Natriuretic Peptide 1658 pg/mL (0-124) Total Protein 6.9 g/dL (6.4-8.2) Albumin 2.8 g/dL (3.4-5.0) Albumin/Globulin Ratio 0.7 (1.0-1.7) Lipase 80 U/L (73-393) Procalcitonin 0.54 ng/mL (0.00-0.10) Influenza Type A Antigen Negative (NEGATIVE) Influenza Type B Antigen Negative (NEGATIVE) Urine Collection Type Unknown Urine Color Yellow Urine Clarity Clear Urine pH 5.5 Urine Specific [place] >=1.030 Urine Protein Negative mg/dL (NEG-TRACE) Urine Glucose (UA) Negative mg/dL (NEG) Urine Ketones (Stick) Negative mg/dL (NEG) Urine Blood Negative (NEG) Urine Nitrite Negative (NEG) Urine Bilirubin Negative (NEG) Urine Urobilinogen Dipstick 0.2 mg/dL (0.2 mg/dL) Urine Leukocyte Esterase Negative (NEG) Urine RBC 0 /HPF (0-2) Urine WBC 0 /HPF (0-4) Urine Bacteria 0 /HPF (0-FEW) Urine Hyaline Casts Moderate /HPF Urine Mucus Mod /LPF Laboratory Tests Test 08/09/18 04:00 White Blood Count 9.6 x10^3/uL (4.0-11.0) Red Blood Count 2.81 x10^6/uL (4.30-5.70) Hemoglobin 7.6 g/dL (13.0-17.5) Hematocrit 22.5 % (39.0-53.0) Mean Corpuscular Volume 80 fL (79-100) Mean Corpuscular Hemoglobin 27 pg (25-35) Mean Corpuscular Hemoglobin Concent 34 g/dL (31-37) Red Cell Distribution Width 16.9 % (11.5-14.5) Platelet Count 540 x10^3/uL (140-400) Neutrophils (%) (Auto) 72 % (31-73) Lymphocytes (%) (Auto) 17 % (24-48) Monocytes (%) (Auto) 11 % (0-9) Eosinophils (%) (Auto) 0 % (0-3) Basophils (%) (Auto) 1 % (0-3) Neutrophils # (Auto) 6.9 x10^3uL (1.8-7.7) Lymphocytes # (Auto) 1.6 x10^3/uL (1.0-4.8) Monocytes # (Auto) 1.1 x10^3/uL (0.0-1.1) Eosinophils # (Auto) 0.0 x10^3/uL (0.0-0.7) Basophils # (Auto) 0.1 x10^3/uL (0.0-0.2) Sodium Level 136 mmol/L (136-145) Potassium Level 3.5 mmol/L (3.5-5.1) Chloride Level 99 mmol/L (98-107) Carbon Dioxide Level 27 mmol/L (21-32) Anion Gap 10 (6-14) Blood Urea Nitrogen 15 mg/dL (8-26) Creatinine 1.2 mg/dL (0.7-1.3) Estimated GFR (Cockcroft-Gault) 62.2 Glucose Level 90 mg/dL (70-99) Calcium Level 8.5 mg/dL (8.5-10.1) Problem List Problems Medical Problems: (1) Acute appendicitis Status: Acute Assessment/Plan appendicitis appears to be improving on abx cont supportive care would recommend interval appendectomy pending chemo VIVIAN BRADLEY MD Aug 09, 2018 08:25
[2018-08-09] MEDS: APIXABAN 5 MG TABLET. PO SCH ×2 (08:32→21:35)
--- NOTE | 2018-08-09 08:36 | PDOC ---
Infectious Disease Note Subjective: Subjective Pt had low grade fever ,now afebrile this am Abdominal pain has improved some No N/V/ symptoms No sob cough is baseline ROS: ROS Negative except for above. Vital Signs: Vital Signs Vital Signs Date Time Temp Pulse Resp B/P (MAP) Pulse Ox O2 Delivery O2 Flow Rate FiO2 08/09/18 03:15 98.8 84 16 120/52 (74) 95 Room Air 98.8 Physical Exam: PHYSICAL EXAM GENERAL: Well-developed, well-nourished male, pleasant, in no acute distress, lying comfortably in bed. HEENT: Normocephalic, atraumatic. Oral lesions in lateral tongue. No thrush. No exudate. NECK: Supple, no JVD. LUNGS: Decreased breath sounds at the bases, left greater than the right. No wheezing. HEART: S1, S2 with no gallops or murmurs. ABDOMEN: Soft. Mild tenderness present in the right lower and mid quadrant. No rebound. No guarding. No masses felt. EXTREMITIES: No edema, no cyanosis. DERM: Warm, dry, no generalized rash. NEUROLOGIC: Alert and oriented x 3. Grossly nonfocal. PSYCHIATRIC: Cooperative, appropriate mood and affect. Right chest wall Port-A-Cath site looks okay. MUSCULOSKELETAL: No joint effusion. No decrease in range of motion. Medications: Inpatient Meds: Current Medications Medications (Trade) Dose Ordered Sig/Frankie Start Time Stop Time Status Last Admin Dose Admin Acetaminophen (Tylenol) 650 mg PRN Q4HRS PRN 08/07/18 23:00 08/08/18 22:59 DC 08/08/18 15:26 650 MG Apixaban (Eliquis) 5 mg BID 08/08/18 10:30 08/08/18 21:29 5 MG Cefepime HCl (Maxipime) 2 gm Q8HRS 08/08/18 06:00 08/09/18 06:24 2 GM Info (Anti-Coagulation Monitoring By Pharmacy) 1 each PRN DAILY PRN 08/08/18 10:30 08/08/18 14:22 1 EACH Info (CONTRAST GIVEN -- Rx MONITORING) 1 each PRN DAILY PRN 08/07/18 20:45 08/09/18 20:44 Iohexol (Omnipaque 300 Mg/ml) 60 ml 1X ONCE 08/07/18 20:45 08/07/18 20:46 DC 08/07/18 20:51 60 ML Metronidazole 100 ml @ 100 mls/hr Q12HR 08/08/18 10:00 08/08/18 21:32 100 MLS/HR Morphine Sulfate (Morphine Sulfate) 4 mg PRN Q3HRS PRN 08/08/18 00:00 Multi-Ingredient Mouthwash/Gargle (Magic Mouthwash) 10 ml PRN QID PRN 08/08/18 10:15 Ondansetron HCl (Zofran) 4 mg PRN Q6HRS PRN 08/08/18 00:00 Sodium Chloride 1,000 ml @ 100 mls/hr Q10H 08/07/18 23:00 08/08/18 22:59 DC 08/08/18 01:18 100 MLS/HR Tbo-Filgrastim (Granix) 480 mcg QHS 08/08/18 07:45 08/09/18 07:22 DC 08/08/18 09:30 480 MCG Labs: Lab Laboratory Tests Test 08/09/18 04:00 White Blood Count 9.6 x10^3/uL (4.0-11.0) Red Blood Count 2.81 x10^6/uL (4.30-5.70) Hemoglobin 7.6 g/dL (13.0-17.5) Hematocrit 22.5 % (39.0-53.0) Mean Corpuscular Volume 80 fL (79-100) Mean Corpuscular Hemoglobin 27 pg (25-35) Mean Corpuscular Hemoglobin Concent 34 g/dL (31-37) Red Cell Distribution Width 16.9 % (11.5-14.5) Platelet Count 540 x10^3/uL (140-400) Neutrophils (%) (Auto) 72 % (31-73) Lymphocytes (%) (Auto) 17 % (24-48) Monocytes (%) (Auto) 11 % (0-9) Eosinophils (%) (Auto) 0 % (0-3) Basophils (%) (Auto) 1 % (0-3) Neutrophils # (Auto) 6.9 x10^3uL (1.8-7.7) Lymphocytes # (Auto) 1.6 x10^3/uL (1.0-4.8) Monocytes # (Auto) 1.1 x10^3/uL (0.0-1.1) Eosinophils # (Auto) 0.0 x10^3/uL (0.0-0.7) Basophils # (Auto) 0.1 x10^3/uL (0.0-0.2) Sodium Level 136 mmol/L (136-145) Potassium Level 3.5 mmol/L (3.5-5.1) Chloride Level 99 mmol/L (98-107) Carbon Dioxide Level 27 mmol/L (21-32) Anion Gap 10 (6-14) Blood Urea Nitrogen 15 mg/dL (8-26) Creatinine 1.2 mg/dL (0.7-1.3) Estimated GFR (Cockcroft-Gault) 62.2 Glucose Level 90 mg/dL (70-99) Calcium Level 8.5 mg/dL (8.5-10.1) Objective: Assessment: 1. Appendicitis. 2. Fever. 3. Neutropenia from recent chemotherapy 4. Adenocarcinoma of lung, on chemotherapy through Port-A-Cath, right chest wall, last chemo on 07/31/2018. 5. History of colon polyp. History of colonic pseudoobstruction in 05/2018. 6. History of pulmonary embolism. 7. Acute kidney injury. 8. Mucositis 9. Anemia Plan: Plan of Care Change to zosyn and micafungin was on cefepime and flagyl magic mouth wash monitor labs/temp/renal func/cults Continue supportive care. Discussed with at bedside ALEXANDRO LOWERY MD Aug 09, 2018 08:36
[2018-08-09] MEDS: MICAFUNGIN 100 MG in IV DEXTROSE 5% 100ML 100 ML IV SCH (10:53)
[2018-08-09 11:00] VITALS: BP 120/50
[2018-08-09] MEDS: PIPERACILLIN/TAZOBACTAM 3.375 GM in IV NORMAL SALINE 50ML 50 ML IV SCH ×3 (12:00→23:23)
--- NOTE | 2018-08-09 12:39 | PDOC ---
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 ROS - no fever Objective Objective Vital Signs Date Time Temp Pulse Resp B/P (MAP) Pulse Ox O2 Delivery O2 Flow Rate FiO2 08/09/18 07:45 Room Air 08/09/18 07:00 98.2 76 18 109/53 (71) 97 98.2 Intake and Output 08/09/18 07:00 Intake Total 1260 ml Output Total 750 ml Balance 510 ml Intake Oral 1260 ml Output Urine Total 750 ml # Voids 2 Physical Exam Heart: Normal S1, Normal S2 General: Alert, Oriented X3, No acute distress Lungs: Clear to auscultation Neuro: Normal speech Psych/Mental Status: Mental status NL Assessment Assessment Problems Medical Problems: (1) Acute appendicitis Status: Acute IMPRESSION AND PLAN: 1. 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 He was started on adjuvant chemotherapy with cisplatin and Navelbine in 06/2018, which has been complicated with persistent neutropenia requiring dose delays. He is now admitted with neutropenic fever, which is a complication of chemotherapy. Plan to resume chemotherapy after the current acute events are resolved and he will follow up with Dr. Delgadillo as outpatient for continuation of chemotherapy. 2. Neutropenic fever. I will consult Infectious Diseases. s/p Granix 480 mcg 08/08/18. WBC now 9.6 on 08/09/18, d/c granix. 3. 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 He is on Eliquis, which has been on hold for possible surgery for appendicitis. 4. Appendicitis. Appreciate consultation by Dr. Ohara. Dr. Ohara has recommended conservative management for now in view of his comorbidities. He may need surgery in the future. I discussed with Dr. Nogueira. Comment Review of Relevant I have reviewed the following items florencio (where applicable) has been applied. Labs Laboratory Tests Test 08/07/18 19:45 08/07/18 20:17 08/07/18 22:15 08/09/18 04:00 White Blood Count 2.2 x10^3/uL (4.0-11.0) 9.6 x10^3/uL (4.0-11.0) Red Blood Count 3.29 x10^6/uL (4.30-5.70) 2.81 x10^6/uL (4.30-5.70) Hemoglobin 8.8 g/dL (13.0-17.5) 7.6 g/dL (13.0-17.5) Hematocrit 26.2 % (39.0-53.0) 22.5 % (39.0-53.0) Mean Corpuscular Volume 80 fL (79-100) 80 fL (79-100) Mean Corpuscular Hemoglobin 27 pg (25-35) 27 pg (25-35) Mean Corpuscular Hemoglobin Concent 33 g/dL (31-37) 34 g/dL (31-37) Red Cell Distribution Width 16.8 % (11.5-14.5) 16.9 % (11.5-14.5) Platelet Count 636 x10^3/uL (140-400) 540 x10^3/uL (140-400) Neutrophils (%) (Auto) 51 % (31-73) 72 % (31-73) Lymphocytes (%) (Auto) 37 % (24-48) 17 % (24-48) Monocytes (%) (Auto) 11 % (0-9) 11 % (0-9) Eosinophils (%) (Auto) 0 % (0-3) 0 % (0-3) Basophils (%) (Auto) 2 % (0-3) 1 % (0-3) Neutrophils # (Auto) 1.1 x10^3uL (1.8-7.7) 6.9 x10^3uL (1.8-7.7) Lymphocytes # (Auto) 0.8 x10^3/uL (1.0-4.8) 1.6 x10^3/uL (1.0-4.8) Monocytes # (Auto) 0.2 x10^3/uL (0.0-1.1) 1.1 x10^3/uL (0.0-1.1) Eosinophils # (Auto) 0.0 x10^3/uL (0.0-0.7) 0.0 x10^3/uL (0.0-0.7) Basophils # (Auto) 0.0 x10^3/uL (0.0-0.2) 0.1 x10^3/uL (0.0-0.2) Segmented Neutrophils % 19 % (35-66) Band Neutrophils % 22 % (0-9) Lymphocytes % 42 % (24-48) Monocytes % 12 % (0-10) Eosinophils % 1 % (0-5) Basophils % 1 % (0-3) Myelocytes % 3 % (0-0) Platelet Estimate Increased (ADEQUATE) Giant Platelets Few Polychromasia Slight Hypochromasia Slight Anisocytosis Slight Sodium Level 131 mmol/L (136-145) 136 mmol/L (136-145) Potassium Level 3.5 mmol/L (3.5-5.1) 3.5 mmol/L (3.5-5.1) Chloride Level 94 mmol/L (98-107) 99 mmol/L (98-107) Carbon Dioxide Level 26 mmol/L (21-32) 27 mmol/L (21-32) Anion Gap 11 (6-14) 10 (6-14) Blood Urea Nitrogen 18 mg/dL (8-26) 15 mg/dL (8-26) Creatinine 1.4 mg/dL (0.7-1.3) 1.2 mg/dL (0.7-1.3) Estimated GFR (Cockcroft-Gault) 52.1 62.2 BUN/Creatinine Ratio 13 (6-20) Glucose Level 119 mg/dL (70-99) 90 mg/dL (70-99) Lactic Acid Level 0.7 mmol/L (0.4-2.0) Calcium Level 9.1 mg/dL (8.5-10.1) 8.5 mg/dL (8.5-10.1) Total Bilirubin 0.3 mg/dL (0.2-1.0) Aspartate Amino Transf (AST/SGOT) 17 U/L (15-37) Alanine Aminotransferase (ALT/SGPT) 23 U/L (16-63) Alkaline Phosphatase 82 U/L (46-116) Troponin I Quantitative 0.018 ng/mL (0.000-0.055) [id number]-Type Natriuretic Peptide 1658 pg/mL (0-124) Total Protein 6.9 g/dL (6.4-8.2) Albumin 2.8 g/dL (3.4-5.0) Albumin/Globulin Ratio 0.7 (1.0-1.7) Lipase 80 U/L (73-393) Procalcitonin 0.54 ng/mL (0.00-0.10) Influenza Type A Antigen Negative (NEGATIVE) Influenza Type B Antigen Negative (NEGATIVE) Urine Collection Type Unknown Urine Color Yellow Urine Clarity Clear Urine pH 5.5 Urine Specific [place] >=1.030 Urine Protein Negative mg/dL (NEG-TRACE) Urine Glucose (UA) Negative mg/dL (NEG) Urine Ketones (Stick) Negative mg/dL (NEG) Urine Blood Negative (NEG) Urine Nitrite Negative (NEG) Urine Bilirubin Negative (NEG) Urine Urobilinogen Dipstick 0.2 mg/dL (0.2 mg/dL) Urine Leukocyte Esterase Negative (NEG) Urine RBC 0 /HPF (0-2) Urine WBC 0 /HPF (0-4) Urine Bacteria 0 /HPF (0-FEW) Urine Hyaline Casts Moderate /HPF Urine Mucus Mod /LPF Laboratory Tests Test 08/09/18 04:00 White Blood Count 9.6 x10^3/uL (4.0-11.0) Red Blood Count 2.81 x10^6/uL (4.30-5.70) Hemoglobin 7.6 g/dL (13.0-17.5) Hematocrit 22.5 % (39.0-53.0) Mean Corpuscular Volume 80 fL (79-100) Mean Corpuscular Hemoglobin 27 pg (25-35) Mean Corpuscular Hemoglobin Concent 34 g/dL (31-37) Red Cell Distribution Width 16.9 % (11.5-14.5) Platelet Count 540 x10^3/uL (140-400) Neutrophils (%) (Auto) 72 % (31-73) Lymphocytes (%) (Auto) 17 % (24-48) Monocytes (%) (Auto) 11 % (0-9) Eosinophils (%) (Auto) 0 % (0-3) Basophils (%) (Auto) 1 % (0-3) Neutrophils # (Auto) 6.9 x10^3uL (1.8-7.7) Lymphocytes # (Auto) 1.6 x10^3/uL (1.0-4.8) Monocytes # (Auto) 1.1 x10^3/uL (0.0-1.1) Eosinophils # (Auto) 0.0 x10^3/uL (0.0-0.7) Basophils # (Auto) 0.1 x10^3/uL (0.0-0.2) Sodium Level 136 mmol/L (136-145) Potassium Level 3.5 mmol/L (3.5-5.1) Chloride Level 99 mmol/L (98-107) Carbon Dioxide Level 27 mmol/L (21-32) Anion Gap 10 (6-14) Blood Urea Nitrogen 15 mg/dL (8-26) Creatinine 1.2 mg/dL (0.7-1.3) Estimated GFR (Cockcroft-Gault) 62.2 Glucose Level 90 mg/dL (70-99) Calcium Level 8.5 mg/dL (8.5-10.1) Microbiology 08/07/18 Blood Culture - Preliminary, Resulted NO GROWTH AFTER 1 DAY Medications Current Medications Sodium Chloride 1,000 ml @ 1,000 mls/hr 1X ONCE IV Last administered on at 20:11; Start 08/07/18 at 19:45; Stop 08/07/18 at 20:44; Status DC Acetaminophen (Tylenol) 650 mg 1X ONCE PO Last administered on 08/07/18at 20:14 ; Start 08/07/18 at 19:45; Stop 08/07/18 at 19:49; Status DC Cefepime HCl (Maxipime) 2 gm 1X ONCE IVP Last administered on 08/07/18at 21:08 ; Start 08/07/18 at 20:30; Stop 08/07/18 at 20:31; Status DC Sodium Chloride 1,000 ml @ 1,000 mls/hr 1X ONCE IV Last administered on at 21:54; Start 08/07/18 at 20:30; Stop 08/07/18 at 21:29; Status DC Iohexol (Omnipaque 300 Mg/ml) 60 ml 1X ONCE IV Last administered on 08/07/18at 20:51; Start 08/07/18 at 20:45; Stop 08/07/18 at 20:46; Status DC Info (CONTRAST GIVEN -- Rx MONITORING) 1 each PRN DAILY PRN MC SEE COMMENTS; Start 08/07/18 at 20:45; Stop 08/09/18 at 20:44 Sodium Chloride 1,000 ml @ 100 mls/hr Q10H IV Last administered on 08/08/18 01:18; Start 08/07/18 at 23:00; Stop 08/08/18 at 22:59; Status DC Acetaminophen (Tylenol) 650 mg PRN Q4HRS PRN PO FEVER Last administered on 08/08 15:26; Start 08/07/18 at 23:00; Stop 08/08/18 at 22:59; Status DC Cefepime HCl (Maxipime) 2 gm Q8HRS IVP Last administered on 08/09/18 06:24; Start 08/08/18 at 06:00; Stop 08/09/18 at 09:14; Status DC Morphine Sulfate (Morphine Sulfate) 4 mg PRN Q3HRS PRN IV PAIN; Start 08/08/18 at 00:00 Ondansetron HCl (Zofran) 4 mg PRN Q6HRS PRN IV NAUSEA/VOMITING; Start 08/08/18 at 00:00 Tbo-Filgrastim (Granix) 480 mcg QHS SQ Last administered on 08/08/18 09:30; Start 08/08/18 at 07:45; Stop 08/09/18 at 07:22; Status DC Metronidazole 100 ml @ 100 mls/hr Q12HR IV Last administered on 08/09/18 08: 32; Start 08/08/18 at 10:00; Stop 08/09/18 at 09:14; Status DC Multi-Ingredient Mouthwash/Gargle (Magic Mouthwash) 10 ml PRN QID PRN PO MOUTH PAIN; Start 08/08/18 at 10:15 Apixaban (Eliquis) 5 mg BID PO Last administered on 08/09/18 08:32; Start at 10:30 Info (Anti-Coagulation Monitoring By Pharmacy) 1 each PRN DAILY PRN MC SEE COMMENTS Last administered on 08/08/18 14:22; Start 08/08/18 at 10:30 Piperacillin Sod/ Tazobactam Sod 3.375 gm/Sodium Chloride 50 ml @ 100 mls/hr Q6HRS IV Last administered on 08/09/18at 12:00; Start 08/09/18 at 12:00 Micafungin Sodium 100 mg/Dextrose 100 ml @ 100 mls/hr Q24H IV Last administered on 08/09/18at 10:53; Start 08/09/18 at 10:00 Active Scripts Active Reported Eliquis (Apixaban) 5 Mg Tablet 5 Mg PO BID resume sunday07/03/18 Amlodipine Besylate 10 Mg Tablet 10 Mg PO DAILY Allopurinol 100 Mg Tablet 100 Mg PO BID Vitals/I & O Vital Sign - Last 24 Hours 08/08/18 08/08/18 08/08/18 08/08/18 15:00 16:58 19:25 20:00 Temp 100.2 99.1 98.7 100.2 99.1 98.7 Pulse 86 77 Resp 18 18 B/P (MAP) 130/52 (78) 119/51 (73) Pulse Ox 95 97 O2 Delivery Room Air Room Air Room Air 08/08/18 08/09/18 08/09/18 08/09/18 23:10 03:15 07:00 07:45 Temp 99.1 98.8 98.2 99.1 98.8 98.2 Pulse 80 84 76 Resp 18 16 18 B/P (MAP) 131/60 (83) 120/52 (74) 109/53 (71) Pulse Ox 96 95 97 O2 Delivery Room Air Room Air Room Air Room Air Intake and Output 08/08/18 08/08/18 08/09/18 15:00 23:00 07:00 Intake Total 720 ml 540 ml Output Total 450 ml 300 ml Balance 270 ml 240 ml Nutrition Consultation Dietary Evaluation: Recommendations by RD: Increase Calorie Intake, Protein supplementation Comments: Encourage P.O. intake-honor food preferences, provide snacks on unit Rec. add Ensure TID for added protein and energy Expected Outcomes/Goals: P.O. intake to meet >75% estimated energy needs Interpretation of weight loss: >7.5% in 3 months Malnutrition Findings: Food and Nutrition Intake (Mod: <75% est energy req 7days Food and Nutrition Intake (Sev: <50% est energy req 5days Weight Status: Obese BAHMAN MARINELLI MD Aug 09, 2018 12:39
--- NOTE | 2018-08-09 12:43 | PDOC ---
PROGRESS NOTES Chief Complaint Chief Complaint Neutropenic fever with appendicitis History of Present Illness History of Present Illness The patient was seen resting in bed today. He complains of minor pain in his RLQ today but it is much better. His was present in the room today. Discussed with heme onc. The patient may go home tomorrow with plans for appendectomy after he has completed his chemotherapy in 3 months. Vitals Vitals Vital Signs Date Time Temp Pulse Resp B/P (MAP) Pulse Ox O2 Delivery O2 Flow Rate FiO2 08/09/18 07:45 Room Air 08/09/18 07:00 98.2 76 18 109/53 (71) 97 98.2 Physical Exam General: Alert, Oriented X3, Cooperative, No acute distress Heart: Regular rate, Normal S1, Normal S2, No murmurs Lungs: Clear (No wheezes, rales, or rhonci), Other Abdomen: Soft, No masses, Other (Minor tenderness in RLQ) Extremities: No edema, Normal pulses, No tenderness/swelling Skin: No rashes, No breakdown, No significant lesion Labs LABS Laboratory Tests Test 08/09/18 04:00 White Blood Count 9.6 x10^3/uL (4.0-11.0) Red Blood Count 2.81 x10^6/uL (4.30-5.70) Hemoglobin 7.6 g/dL (13.0-17.5) Hematocrit 22.5 % (39.0-53.0) Mean Corpuscular Volume 80 fL (79-100) Mean Corpuscular Hemoglobin 27 pg (25-35) Mean Corpuscular Hemoglobin Concent 34 g/dL (31-37) Red Cell Distribution Width 16.9 % (11.5-14.5) Platelet Count 540 x10^3/uL (140-400) Neutrophils (%) (Auto) 72 % (31-73) Lymphocytes (%) (Auto) 17 % (24-48) Monocytes (%) (Auto) 11 % (0-9) Eosinophils (%) (Auto) 0 % (0-3) Basophils (%) (Auto) 1 % (0-3) Neutrophils # (Auto) 6.9 x10^3uL (1.8-7.7) Lymphocytes # (Auto) 1.6 x10^3/uL (1.0-4.8) Monocytes # (Auto) 1.1 x10^3/uL (0.0-1.1) Eosinophils # (Auto) 0.0 x10^3/uL (0.0-0.7) Basophils # (Auto) 0.1 x10^3/uL (0.0-0.2) Sodium Level 136 mmol/L (136-145) Potassium Level 3.5 mmol/L (3.5-5.1) Chloride Level 99 mmol/L (98-107) Carbon Dioxide Level 27 mmol/L (21-32) Anion Gap 10 (6-14) Blood Urea Nitrogen 15 mg/dL (8-26) Creatinine 1.2 mg/dL (0.7-1.3) Estimated GFR (Cockcroft-Gault) 62.2 Glucose Level 90 mg/dL (70-99) Calcium Level 8.5 mg/dL (8.5-10.1) Review of Systems Review of Systems Patient has some minor RLQ abdominal pain. He denies fevers, chills, CP, SOB, N/ V, diarrhea. Assessment and Plan Assessmemt and Plan Problems Medical Problems: (1) Acute appendicitis Status: Acute ASSESSMENT Fever Abdominal pain secondary to Acute Appendicitis Lung Cancer s/p lobectomy 05/22/18, currently on chemo, last chemo was 07/31, has 3 months remaining Leukopenia 2.2 -> 9.6, resolved Neutropenia 1.1 -> 6.9, resolved Hx of PE on oral AC PLAN no plans for surgery at this time, will wait until patient has completed chemotherapy Lap appendectomy in the future Discussed with Dr. Ohara Cefepime and chilo ID, general surgery, and heme onc consults F/u labs Monitor wbc count and ANC Continue home meds PT/OT DVT prophylaxis Possible discharge tomorrow Comment Review of Relevant I have reviewed the following items florencio (where applicable) has been applied. Labs Laboratory Tests Test 08/07/18 19:45 08/07/18 20:17 08/07/18 22:15 08/09/18 04:00 White Blood Count 2.2 x10^3/uL (4.0-11.0) 9.6 x10^3/uL (4.0-11.0) Red Blood Count 3.29 x10^6/uL (4.30-5.70) 2.81 x10^6/uL (4.30-5.70) Hemoglobin 8.8 g/dL (13.0-17.5) 7.6 g/dL (13.0-17.5) Hematocrit 26.2 % (39.0-53.0) 22.5 % (39.0-53.0) Mean Corpuscular Volume 80 fL (79-100) 80 fL (79-100) Mean Corpuscular Hemoglobin 27 pg (25-35) 27 pg (25-35) Mean Corpuscular Hemoglobin Concent 33 g/dL (31-37) 34 g/dL (31-37) Red Cell Distribution Width 16.8 % (11.5-14.5) 16.9 % (11.5-14.5) Platelet Count 636 x10^3/uL (140-400) 540 x10^3/uL (140-400) Neutrophils (%) (Auto) 51 % (31-73) 72 % (31-73) Lymphocytes (%) (Auto) 37 % (24-48) 17 % (24-48) Monocytes (%) (Auto) 11 % (0-9) 11 % (0-9) Eosinophils (%) (Auto) 0 % (0-3) 0 % (0-3) Basophils (%) (Auto) 2 % (0-3) 1 % (0-3) Neutrophils # (Auto) 1.1 x10^3uL (1.8-7.7) 6.9 x10^3uL (1.8-7.7) Lymphocytes # (Auto) 0.8 x10^3/uL (1.0-4.8) 1.6 x10^3/uL (1.0-4.8) Monocytes # (Auto) 0.2 x10^3/uL (0.0-1.1) 1.1 x10^3/uL (0.0-1.1) Eosinophils # (Auto) 0.0 x10^3/uL (0.0-0.7) 0.0 x10^3/uL (0.0-0.7) Basophils # (Auto) 0.0 x10^3/uL (0.0-0.2) 0.1 x10^3/uL (0.0-0.2) Segmented Neutrophils % 19 % (35-66) Band Neutrophils % 22 % (0-9) Lymphocytes % 42 % (24-48) Monocytes % 12 % (0-10) Eosinophils % 1 % (0-5) Basophils % 1 % (0-3) Myelocytes % 3 % (0-0) Platelet Estimate Increased (ADEQUATE) Giant Platelets Few Polychromasia Slight Hypochromasia Slight Anisocytosis Slight Sodium Level 131 mmol/L (136-145) 136 mmol/L (136-145) Potassium Level 3.5 mmol/L (3.5-5.1) 3.5 mmol/L (3.5-5.1) Chloride Level 94 mmol/L (98-107) 99 mmol/L (98-107) Carbon Dioxide Level 26 mmol/L (21-32) 27 mmol/L (21-32) Anion Gap 11 (6-14) 10 (6-14) Blood Urea Nitrogen 18 mg/dL (8-26) 15 mg/dL (8-26) Creatinine 1.4 mg/dL (0.7-1.3) 1.2 mg/dL (0.7-1.3) Estimated GFR (Cockcroft-Gault) 52.1 62.2 BUN/Creatinine Ratio 13 (6-20) Glucose Level 119 mg/dL (70-99) 90 mg/dL (70-99) Lactic Acid Level 0.7 mmol/L (0.4-2.0) Calcium Level 9.1 mg/dL (8.5-10.1) 8.5 mg/dL (8.5-10.1) Total Bilirubin 0.3 mg/dL (0.2-1.0) Aspartate Amino Transf (AST/SGOT) 17 U/L (15-37) Alanine Aminotransferase (ALT/SGPT) 23 U/L (16-63) Alkaline Phosphatase 82 U/L (46-116) Troponin I Quantitative 0.018 ng/mL (0.000-0.055) KR-[id number]-G-Type Natriuretic Peptide 1658 pg/mL (0-124) Total Protein 6.9 g/dL (6.4-8.2) Albumin 2.8 g/dL (3.4-5.0) Albumin/Globulin Ratio 0.7 (1.0-1.7) Lipase 80 U/L (73-393) Procalcitonin 0.54 ng/mL (0.00-0.10) Influenza Type A Antigen Negative (NEGATIVE) Influenza Type B Antigen Negative (NEGATIVE) Urine Collection Type Unknown Urine Color Yellow Urine Clarity Clear Urine pH 5.5 Urine Specific [place] >=1.030 Urine Protein Negative mg/dL (NEG-TRACE) Urine Glucose (UA) Negative mg/dL (NEG) Urine Ketones (Stick) Negative mg/dL (NEG) Urine Blood Negative (NEG) Urine Nitrite Negative (NEG) Urine Bilirubin Negative (NEG) Urine Urobilinogen Dipstick 0.2 mg/dL (0.2 mg/dL) Urine Leukocyte Esterase Negative (NEG) Urine RBC 0 /HPF (0-2) Urine WBC 0 /HPF (0-4) Urine Bacteria 0 /HPF (0-FEW) Urine Hyaline Casts Moderate /HPF Urine Mucus Mod /LPF Laboratory Tests Test 08/09/18 04:00 White Blood Count 9.6 x10^3/uL (4.0-11.0) Red Blood Count 2.81 x10^6/uL (4.30-5.70) Hemoglobin 7.6 g/dL (13.0-17.5) Hematocrit 22.5 % (39.0-53.0) Mean Corpuscular Volume 80 fL (79-100) Mean Corpuscular Hemoglobin 27 pg (25-35) Mean Corpuscular Hemoglobin Concent 34 g/dL (31-37) Red Cell Distribution Width 16.9 % (11.5-14.5) Platelet Count 540 x10^3/uL (140-400) Neutrophils (%) (Auto) 72 % (31-73) Lymphocytes (%) (Auto) 17 % (24-48) Monocytes (%) (Auto) 11 % (0-9) Eosinophils (%) (Auto) 0 % (0-3) Basophils (%) (Auto) 1 % (0-3) Neutrophils # (Auto) 6.9 x10^3uL (1.8-7.7) Lymphocytes # (Auto) 1.6 x10^3/uL (1.0-4.8) Monocytes # (Auto) 1.1 x10^3/uL (0.0-1.1) Eosinophils # (Auto) 0.0 x10^3/uL (0.0-0.7) Basophils # (Auto) 0.1 x10^3/uL (0.0-0.2) Sodium Level 136 mmol/L (136-145) Potassium Level 3.5 mmol/L (3.5-5.1) Chloride Level 99 mmol/L (98-107) Carbon Dioxide Level 27 mmol/L (21-32) Anion Gap 10 (6-14) Blood Urea Nitrogen 15 mg/dL (8-26) Creatinine 1.2 mg/dL (0.7-1.3) Estimated GFR (Cockcroft-Gault) 62.2 Glucose Level 90 mg/dL (70-99) Calcium Level 8.5 mg/dL (8.5-10.1) Microbiology 08/07/18 Blood Culture - Preliminary, Resulted NO GROWTH AFTER 1 DAY Medications Current Medications Sodium Chloride 1,000 ml @ 1,000 mls/hr 1X ONCE IV Last administered on at 20:11; Start 08/07/18 at 19:45; Stop 08/07/18 at 20:44; Status DC Acetaminophen (Tylenol) 650 mg 1X ONCE PO Last administered on 08/07/18at 20:14 ; Start 08/07/18 at 19:45; Stop 08/07/18 at 19:49; Status DC Cefepime HCl (Maxipime) 2 gm 1X ONCE IVP Last administered on 08/07/18at 21:08 ; Start 08/07/18 at 20:30; Stop 08/07/18 at 20:31; Status DC Sodium Chloride 1,000 ml @ 1,000 mls/hr 1X ONCE IV Last administered on at 21:54; Start 08/07/18 at 20:30; Stop 08/07/18 at 21:29; Status DC Iohexol (Omnipaque 300 Mg/ml) 60 ml 1X ONCE IV Last administered on 08/07/18at 20:51; Start 08/07/18 at 20:45; Stop 08/07/18 at 20:46; Status DC Info (CONTRAST GIVEN -- Rx MONITORING) 1 each PRN DAILY PRN MC SEE COMMENTS; Start 08/07/18 at 20:45; Stop 08/09/18 at 20:44 Sodium Chloride 1,000 ml @ 100 mls/hr Q10H IV Last administered on 08/08/18 01:18; Start 08/07/18 at 23:00; Stop 08/08/18 at 22:59; Status DC Acetaminophen (Tylenol) 650 mg PRN Q4HRS PRN PO FEVER Last administered on 08/08 15:26; Start 08/07/18 at 23:00; Stop 08/08/18 at 22:59; Status DC Cefepime HCl (Maxipime) 2 gm Q8HRS IVP Last administered on 08/09/18 06:24; Start 08/08/18 at 06:00; Stop 08/09/18 at 09:14; Status DC Morphine Sulfate (Morphine Sulfate) 4 mg PRN Q3HRS PRN IV PAIN; Start 08/08/18 at 00:00 Ondansetron HCl (Zofran) 4 mg PRN Q6HRS PRN IV NAUSEA/VOMITING; Start 08/08/18 at 00:00 Tbo-Filgrastim (Granix) 480 mcg QHS SQ Last administered on 08/08/18 09:30; Start 08/08/18 at 07:45; Stop 08/09/18 at 07:22; Status DC Metronidazole 100 ml @ 100 mls/hr Q12HR IV Last administered on 08/09/18 08: 32; Start 08/08/18 at 10:00; Stop 08/09/18 at 09:14; Status DC Multi-Ingredient Mouthwash/Gargle (Magic Mouthwash) 10 ml PRN QID PRN PO MOUTH PAIN; Start 08/08/18 at 10:15 Apixaban (Eliquis) 5 mg BID PO Last administered on 08/09/18 08:32; Start at 10:30 Info (Anti-Coagulation Monitoring By Pharmacy) 1 each PRN DAILY PRN MC SEE COMMENTS Last administered on 08/08/18 14:22; Start 08/08/18 at 10:30 Piperacillin Sod/ Tazobactam Sod 3.375 gm/Sodium Chloride 50 ml @ 100 mls/hr Q6HRS IV Last administered on 08/09/18 12:00; Start 08/09/18 at 12:00 Micafungin Sodium 100 mg/Dextrose 100 ml @ 100 mls/hr Q24H IV Last administered on 08/09/18at 10:53; Start 08/09/18 at 10:00 Active Scripts Active Reported Eliquis (Apixaban) 5 Mg Tablet 5 Mg PO BID resume sunday morning 07/03/18 Amlodipine Besylate 10 Mg Tablet 10 Mg PO DAILY Allopurinol 100 Mg Tablet 100 Mg PO BID Vitals/I & O Vital Sign - Last 24 Hours 08/08/18 08/08/18 08/08/18 08/08/18 15:00 16:58 19:25 20:00 Temp 100.2 99.1 98.7 100.2 99.1 98.7 Pulse 86 77 Resp 18 B/P (MAP) 130/52 (78) 119/51 (73) Pulse Ox 95 97 O2 Delivery Room Air Room Air Room Air 08/08/18 08/09/18 08/09/18 08/09/18 23:10 03:15 07:00 07:45 Temp 99.1 98.8 98.2 99.1 98.8 98.2 Pulse 80 84 76 Resp 18 18 B/P (MAP) 131/60 (83) 120/52 (74) 109/53 (71) Pulse Ox 96 95 97 O2 Delivery Room Air Room Air Room Air Room Air Intake and Output 08/08/18 08/08/18 08/09/18 15:00 23:00 07:00 Intake Total 720 ml 540 ml Output Total 450 ml 300 ml Balance 270 ml 240 ml Nutrition Consultation Dietary Evaluation: Recommendations by RD: Increase Calorie Intake, Protein supplementation Comments: Encourage P.O. intake-honor food preferences, provide snacks on unit Rec. add Ensure TID for added protein and energy Expected Outcomes/Goals: P.O. intake to meet >75% estimated energy needs Interpretation of weight loss: >7.5% in 3 months Malnutrition Findings: Food and Nutrition Intake (Mod: <75% est energy req 7days Food and Nutrition Intake (Sev: <50% est energy req 5days Weight Status: Obese LARRY OLIVEIRA III DO Aug 09, 2018 12:43
[2018-08-09 15:00] VITALS: BP 117/51
[2018-08-09 19:00] VITALS: BP 138/57
[2018-08-09 22:49] VITALS: BP 135/60
[2018-08-10] VITALS (7 sets, daily range): BP systolic 118–140; BP diastolic 6–67
[2018-08-10] MEDS: PIPERACILLIN/TAZOBACTAM 3.375 GM in IV NORMAL SALINE 50ML 50 ML IV SCH ×4 (05:30→23:47)
[2018-08-10 05:54] LABS: BASO # 0.1 x10^3/uL (0.0-0.2); BASO % 0 % (0-3); EOS % 0 % (0-3); HEMATOCRIT 23.7 % (39.0-53.0); HEMOGLOBIN 7.9 g/dL (13.0-17.5); LYMPH # 0.9 x10^3/uL (1.0-4.8); LYMPH % 6 % (24-48); MEAN CORPUSCULAR HEMOGLOBIN 27 pg (25-35); MEAN CORPUSCULAR HGB CONC 33 g/dL (31-37); MEAN CORPUSCULAR VOLUME 81 fL (79-100); MONO # 1.1 x10^3/uL (0.0-1.1); MONO % 8 % (0-9); NEUT # 12.6 x10^3uL (1.8-7.7); NEUT % 86 % (31-73); PLATELET COUNT 521 x10^3/uL (140-400); RED BLOOD COUNT 2.93 x10^6/uL (4.30-5.70); WHITE BLOOD COUNT 14.7 x10^3/uL (4.0-11.0)
[2018-08-10 06:08] LABS: CALCIUM 8.4 mg/dL (8.5-10.1); CREATININE 1.2 mg/dL (0.7-1.3); GFR 62.2; POTASSIUM 3.8 mmol/L (3.5-5.1)
--- NOTE | 2018-08-10 09:45 | PDOC ---
Infectious Disease Note Subjective Subjective No fevers last 24 hours Less abdominal pain Denies N/V/D Cough is baseline Tolerating soft diet ROS ROS per HPI otherwise neg Vital Sign Vital Signs Vital Signs Date Time Temp Pulse Resp B/P (MAP) Pulse Ox O2 Delivery O2 Flow Rate FiO2 08/10/18 07:00 98.0 82 20 140/61 (87) 97 Room Air 98.0 Physical Exam PHYSICAL EXAM GENERAL: Propped up in bed, appears comfortable HEENT: Oral lesions in lateral tongue. No exudate. NECK: Supple, no JVD. LUNGS: Decreased breath sounds at the bases, left greater than the right. No wheezing. HEART: S1, S2 with no gallops or murmurs. ABDOMEN: Obese, soft, mildly tender right lower and mid quadrant. EXTREMITIES: No edema, no cyanosis. DERM: Warm, dry, no generalized rash. NEUROLOGIC: Alert and oriented x 3. Grossly nonfocal. Right chest wall Port-A-Cath clean Labs Lab Laboratory Tests Test 08/10/18 05:00 White Blood Count 14.7 x10^3/uL (4.0-11.0) Red Blood Count 2.93 x10^6/uL (4.30-5.70) Hemoglobin 7.9 g/dL (13.0-17.5) Hematocrit 23.7 % (39.0-53.0) Mean Corpuscular Volume 81 fL (79-100) Mean Corpuscular Hemoglobin 27 pg (25-35) Mean Corpuscular Hemoglobin Concent 33 g/dL (31-37) Red Cell Distribution Width 17.0 % (11.5-14.5) Platelet Count 521 x10^3/uL (140-400) Neutrophils (%) (Auto) 86 % (31-73) Lymphocytes (%) (Auto) 6 % (24-48) Monocytes (%) (Auto) 8 % (0-9) Eosinophils (%) (Auto) 0 % (0-3) Basophils (%) (Auto) 0 % (0-3) Neutrophils # (Auto) 12.6 x10^3uL (1.8-7.7) Lymphocytes # (Auto) 0.9 x10^3/uL (1.0-4.8) Monocytes # (Auto) 1.1 x10^3/uL (0.0-1.1) Eosinophils # (Auto) 0.0 x10^3/uL (0.0-0.7) Basophils # (Auto) 0.1 x10^3/uL (0.0-0.2) Sodium Level 138 mmol/L (136-145) Potassium Level 3.8 mmol/L (3.5-5.1) Chloride Level 102 mmol/L (98-107) Carbon Dioxide Level 28 mmol/L (21-32) Anion Gap 8 (6-14) Blood Urea Nitrogen 13 mg/dL (8-26) Creatinine 1.2 mg/dL (0.7-1.3) Estimated GFR (Cockcroft-Gault) 62.2 Glucose Level 104 mg/dL (70-99) Calcium Level 8.4 mg/dL (8.5-10.1) Micro Microbiology 08/07/18 Blood Culture - Preliminary, Resulted NO GROWTH AFTER 2 DAYS Objective Assessment Appendicitis. Fever, better Neutropenia from recent chemotherapy. s/p Granix, 08/08 Adenocarcinoma of lung, on chemotherapy through Port-A-Cath, right chest wall, last chemo on 07/31/2018. History of colon polyp. History of colonic pseudoobstruction in 05/2018. History of pulmonary embolism. Acute kidney injury, better Mucositis Anemia Plan Plan of Care Cont Zosyn and micafungin was on cefepime and Flagyl magic mouth wash monitor labs/temp/renal func/cults Gen surgery following. rec interval appendectomy pending chemo Supportive care. D/w with at bedside Do not discharge. Cont IV abx explained he has only had 2.5 day of IV abx and given inflammation and immunosuppression he needs longer IV treatment and monitoring. D/w Dr. Castrejon who agrees with plan F/u labs consider repeat CT 08/12 D/w /nursing Attending Co-Sign Attending Co-Sign The patient was seen and interviewed as well as examined at the bedside. The chart was reviewed. The case was discussed. Agree with the plan of care. JAZIEL BRANHAM APRN Aug 10, 2018 09:45 DAAYNA HOFFMAN MD Aug 10, 2018 14:37
[2018-08-10] MEDS: APIXABAN 5 MG TABLET. PO SCH ×2 (10:43→21:05)
[2018-08-10] MEDS: MICAFUNGIN 100 MG in IV DEXTROSE 5% 100ML 100 ML IV SCH (10:44)
--- NOTE | 2018-08-10 11:53 | PDOC ---
PROGRESS NOTES Subjective Subjective pain improving with antibiotics Objective Objective Vital Signs Date Time Temp Pulse Resp B/P (MAP) Pulse Ox O2 Delivery O2 Flow Rate FiO2 08/10/18 08:00 Room Air 08/10/18 07:00 98.0 82 20 140/61 (87) 97 98.0 Intake and Output 08/10/18 06:59 # Voids 12 Physical Exam Abdomen: Soft (minimal focal pain, no guarding) Heart: Regular rate Extremities: No clubbing, No cyanosis General: Alert, Oriented X3 Assessment Assessment Problems Medical Problems: (1) Acute appendicitis Status: Acute Plan Plan of Care Continue medical management, abx Comment Review of Relevant I have reviewed the following items florencio (where applicable) has been applied. Labs Laboratory Tests Test 08/09/18 04:00 08/10/18 05:00 White Blood Count 9.6 x10^3/uL (4.0-11.0) 14.7 x10^3/uL (4.0-11.0) Red Blood Count 2.81 x10^6/uL (4.30-5.70) 2.93 x10^6/uL (4.30-5.70) Hemoglobin 7.6 g/dL (13.0-17.5) 7.9 g/dL (13.0-17.5) Hematocrit 22.5 % (39.0-53.0) 23.7 % (39.0-53.0) Mean Corpuscular Volume 80 fL (79-100) 81 fL (79-100) Mean Corpuscular Hemoglobin 27 pg (25-35) 27 pg (25-35) Mean Corpuscular Hemoglobin Concent 34 g/dL (31-37) 33 g/dL (31-37) Red Cell Distribution Width 16.9 % (11.5-14.5) 17.0 % (11.5-14.5) Platelet Count 540 x10^3/uL (140-400) 521 x10^3/uL (140-400) Neutrophils (%) (Auto) 72 % (31-73) 86 % (31-73) Lymphocytes (%) (Auto) 17 % (24-48) 6 % (24-48) Monocytes (%) (Auto) 11 % (0-9) 8 % (0-9) Eosinophils (%) (Auto) 0 % (0-3) 0 % (0-3) Basophils (%) (Auto) 1 % (0-3) 0 % (0-3) Neutrophils # (Auto) 6.9 x10^3uL (1.8-7.7) 12.6 x10^3uL (1.8-7.7) Lymphocytes # (Auto) 1.6 x10^3/uL (1.0-4.8) 0.9 x10^3/uL (1.0-4.8) Monocytes # (Auto) 1.1 x10^3/uL (0.0-1.1) 1.1 x10^3/uL (0.0-1.1) Eosinophils # (Auto) 0.0 x10^3/uL (0.0-0.7) 0.0 x10^3/uL (0.0-0.7) Basophils # (Auto) 0.1 x10^3/uL (0.0-0.2) 0.1 x10^3/uL (0.0-0.2) Sodium Level 136 mmol/L (136-145) 138 mmol/L (136-145) Potassium Level 3.5 mmol/L (3.5-5.1) 3.8 mmol/L (3.5-5.1) Chloride Level 99 mmol/L (98-107) 102 mmol/L (98-107) Carbon Dioxide Level 27 mmol/L (21-32) 28 mmol/L (21-32) Anion Gap 10 (6-14) 8 (6-14) Blood Urea Nitrogen 15 mg/dL (8-26) 13 mg/dL (8-26) Creatinine 1.2 mg/dL (0.7-1.3) 1.2 mg/dL (0.7-1.3) Estimated GFR (Cockcroft-Gault) 62.2 62.2 Glucose Level 90 mg/dL (70-99) 104 mg/dL (70-99) Calcium Level 8.5 mg/dL (8.5-10.1) 8.4 mg/dL (8.5-10.1) Laboratory Tests Test 08/10/18 05:00 White Blood Count 14.7 x10^3/uL (4.0-11.0) Red Blood Count 2.93 x10^6/uL (4.30-5.70) Hemoglobin 7.9 g/dL (13.0-17.5) Hematocrit 23.7 % (39.0-53.0) Mean Corpuscular Volume 81 fL (79-100) Mean Corpuscular Hemoglobin 27 pg (25-35) Mean Corpuscular Hemoglobin Concent 33 g/dL (31-37) Red Cell Distribution Width 17.0 % (11.5-14.5) Platelet Count 521 x10^3/uL (140-400) Neutrophils (%) (Auto) 86 % (31-73) Lymphocytes (%) (Auto) 6 % (24-48) Monocytes (%) (Auto) 8 % (0-9) Eosinophils (%) (Auto) 0 % (0-3) Basophils (%) (Auto) 0 % (0-3) Neutrophils # (Auto) 12.6 x10^3uL (1.8-7.7) Lymphocytes # (Auto) 0.9 x10^3/uL (1.0-4.8) Monocytes # (Auto) 1.1 x10^3/uL (0.0-1.1) Eosinophils # (Auto) 0.0 x10^3/uL (0.0-0.7) Basophils # (Auto) 0.1 x10^3/uL (0.0-0.2) Sodium Level 138 mmol/L (136-145) Potassium Level 3.8 mmol/L (3.5-5.1) Chloride Level 102 mmol/L (98-107) Carbon Dioxide Level 28 mmol/L (21-32) Anion Gap 8 (6-14) Blood Urea Nitrogen 13 mg/dL (8-26) Creatinine 1.2 mg/dL (0.7-1.3) Estimated GFR (Cockcroft-Gault) 62.2 Glucose Level 104 mg/dL (70-99) Calcium Level 8.4 mg/dL (8.5-10.1) Microbiology 08/07/18 Blood Culture - Preliminary, Resulted NO GROWTH AFTER 2 DAYS Medications Current Medications Sodium Chloride 1,000 ml @ 1,000 mls/hr 1X ONCE IV Last administered on at 20:11; Start 08/07/18 at 19:45; Stop 08/07/18 at 20:44; Status DC Acetaminophen (Tylenol) 650 mg 1X ONCE PO Last administered on 08/07/18at 20:14 ; Start 08/07/18 at 19:45; Stop 08/07/18 at 19:49; Status DC Cefepime HCl (Maxipime) 2 gm 1X ONCE IVP Last administered on 08/07/18at 21:08 ; Start 08/07/18 at 20:30; Stop 08/07/18 at 20:31; Status DC Sodium Chloride 1,000 ml @ 1,000 mls/hr 1X ONCE IV Last administered on at 21:54; Start 08/07/18 at 20:30; Stop 08/07/18 at 21:29; Status DC Iohexol (Omnipaque 300 Mg/ml) 60 ml 1X ONCE IV Last administered on 08/07/18at 20:51; Start 08/07/18 at 20:45; Stop 08/07/18 at 20:46; Status DC Info (CONTRAST GIVEN -- Rx MONITORING) 1 each PRN DAILY PRN MC SEE COMMENTS; Start 08/07/18 at 20:45; Stop 08/09/18 at 20:44; Status DC Sodium Chloride 1,000 ml @ 100 mls/hr Q10H IV Last administered on 08/08/18at 01:18; Start 08/07/18 at 23:00; Stop 08/08/18 at 22:59; Status DC Acetaminophen (Tylenol) 650 mg PRN Q4HRS PRN PO FEVER Last administered on 08/08at 15:26; Start 08/07/18 at 23:00; Stop 08/08/18 at 22:59; Status DC Cefepime HCl (Maxipime) 2 gm Q8HRS IVP Last administered on 08/09/18at 06:24; Start 08/08/18 at 06:00; Stop 08/09/18 at 09:14; Status DC Morphine Sulfate (Morphine Sulfate) 4 mg PRN Q3HRS PRN IV PAIN; Start 08/08/18 at 00:00 Ondansetron HCl (Zofran) 4 mg PRN Q6HRS PRN IV NAUSEA/VOMITING; Start 08/08/18 at 00:00 Tbo-Filgrastim (Granix) 480 mcg QHS SQ Last administered on 08/08/18 09:30; Start 08/08/18 at 07:45; Stop 08/09/18 at 07:22; Status DC Metronidazole 100 ml @ 100 mls/hr Q12HR IV Last administered on 08/09/18 08: 32; Start 08/08/18 at 10:00; Stop 08/09/18 at 09:14; Status DC Multi-Ingredient Mouthwash/Gargle (Magic Mouthwash) 10 ml PRN QID PRN PO MOUTH PAIN; Start 08/08/18 at 10:15 Apixaban (Eliquis) 5 mg BID PO Last administered on 08/10/18 10:43; Start at 10:30 Info (Anti-Coagulation Monitoring By Pharmacy) 1 each PRN DAILY PRN MC SEE COMMENTS Last administered on 08/08/18 14:22; Start 08/08/18 at 10:30 Piperacillin Sod/ Tazobactam Sod 3.375 gm/Sodium Chloride 50 ml @ 100 mls/hr Q6HRS IV Last administered on 08/10/18 05:30; Start 08/09/18 at 12:00 Micafungin Sodium 100 mg/Dextrose 100 ml @ 100 mls/hr Q24H IV Last administered on 08/10/18 10:44; Start 08/09/18 at 10:00 Active Scripts Active Reported Eliquis (Apixaban) 5 Mg Tablet 5 Mg PO BID resume sunday07/03/18 Amlodipine Besylate 10 Mg Tablet 10 Mg PO DAILY Allopurinol 100 Mg Tablet 100 Mg PO BID Vitals/I & O Vital Sign - Last 24 Hours 08/09/18 08/09/18 08/09/18 08/09/18 15:00 19:00 20:00 22:49 Temp 98.3 98.2 98.2 98.3 98.2 98.2 Pulse 81 92 78 Resp 18 16 18 B/P (MAP) 117/51 (73) 138/57 (84) 135/60 (85) Pulse Ox 98 97 96 O2 Delivery Room Air Room Air Room Air Room Air 08/10/18 08/10/18 08/10/18 02:50 07:00 08:00 Temp 97.5 98.0 97.5 98.0 Pulse 63 82 Resp 16 20 B/P (MAP) 118/55 (76) 140/61 (87) Pulse Ox 97 97 O2 Delivery Room Air Room Air Room Air Nutrition Consultation Dietary Evaluation: Recommendations by RD: Increase Calorie Intake, Protein supplementation Comments: Encourage P.O. intake-honor food preferences, provide snacks on unit Rec. add Ensure TID for added protein and energy Expected Outcomes/Goals: P.O. intake to meet >75% estimated energy needs Interpretation of weight loss: >7.5% in 3 months Malnutrition Findings: Food and Nutrition Intake (Mod: <75% est energy req 7days Food and Nutrition Intake (Sev: <50% est energy req 5days Weight Status: Obese DILLON COOK MD Aug 10, 2018 11:53
--- NOTE | 2018-08-10 12:17 | PDOC ---
PROGRESS NOTES Chief Complaint Chief Complaint Neutropenic fever with appendicitis History of Present Illness History of Present Illness The patient was seen resting in bed today. He states his pain is much better today. His was present in the room today. The patient may go home today with plans for appendectomy after he has completed his chemotherapy in 3 months. Vitals Vitals Vital Signs Date Time Temp Pulse Resp B/P (MAP) Pulse Ox O2 Delivery O2 Flow Rate FiO2 08/10/18 08:00 Room Air 08/10/18 07:00 98.0 82 20 140/61 (87) 97 98.0 Physical Exam General: Alert, Oriented X3, Cooperative, No acute distress Heart: Regular rate, Normal S1, Normal S2, No murmurs Lungs: Clear (No wheezes, rales, or rhonci), Other Abdomen: Soft (minimal focal pain, no guarding), No tenderness, No masses Extremities: No cyanosis, No edema, Normal pulses, No tenderness/swelling Skin: No rashes, No breakdown, No significant lesion Labs LABS Laboratory Tests Test 08/10/18 05:00 White Blood Count 14.7 x10^3/uL (4.0-11.0) Red Blood Count 2.93 x10^6/uL (4.30-5.70) Hemoglobin 7.9 g/dL (13.0-17.5) Hematocrit 23.7 % (39.0-53.0) Mean Corpuscular Volume 81 fL (79-100) Mean Corpuscular Hemoglobin 27 pg (25-35) Mean Corpuscular Hemoglobin Concent 33 g/dL (31-37) Red Cell Distribution Width 17.0 % (11.5-14.5) Platelet Count 521 x10^3/uL (140-400) Neutrophils (%) (Auto) 86 % (31-73) Lymphocytes (%) (Auto) 6 % (24-48) Monocytes (%) (Auto) 8 % (0-9) Eosinophils (%) (Auto) 0 % (0-3) Basophils (%) (Auto) 0 % (0-3) Neutrophils # (Auto) 12.6 x10^3uL (1.8-7.7) Lymphocytes # (Auto) 0.9 x10^3/uL (1.0-4.8) Monocytes # (Auto) 1.1 x10^3/uL (0.0-1.1) Eosinophils # (Auto) 0.0 x10^3/uL (0.0-0.7) Basophils # (Auto) 0.1 x10^3/uL (0.0-0.2) Sodium Level 138 mmol/L (136-145) Potassium Level 3.8 mmol/L (3.5-5.1) Chloride Level 102 mmol/L (98-107) Carbon Dioxide Level 28 mmol/L (21-32) Anion Gap 8 (6-14) Blood Urea Nitrogen 13 mg/dL (8-26) Creatinine 1.2 mg/dL (0.7-1.3) Estimated GFR (Cockcroft-Gault) 62.2 Glucose Level 104 mg/dL (70-99) Calcium Level 8.4 mg/dL (8.5-10.1) Review of Systems Review of Systems Patient denies fevers, chills, N/V, CP, SOB, and diarrhea. Assessment and Plan Assessmemt and Plan Problems Medical Problems: (1) Acute appendicitis Status: Acute ASSESSMENT Fever Abdominal pain secondary to Acute Appendicitis Lung Cancer s/p lobectomy 05/22/18, currently on chemo, last chemo was 07/31, has 3 months remaining Leukopenia 2.2 -> 9.6 -> 14.7 Neutropenia 1.1 -> 6.9 -> 12,6 Hx of PE on oral AC PLAN no plans for surgery at this time, will wait until patient has completed chemotherapy Lap appendectomy in the future Zosyn and micafungin ID, general surgery, and heme onc consults F/u labs Monitor wbc count and ANC Continue home meds PT/OT DVT prophylaxis Discharge today Comment Review of Relevant I have reviewed the following items florencio (where applicable) has been applied. Labs Laboratory Tests Test 08/09/18 04:00 08/10/18 05:00 White Blood Count 9.6 x10^3/uL (4.0-11.0) 14.7 x10^3/uL (4.0-11.0) Red Blood Count 2.81 x10^6/uL (4.30-5.70) 2.93 x10^6/uL (4.30-5.70) Hemoglobin 7.6 g/dL (13.0-17.5) 7.9 g/dL (13.0-17.5) Hematocrit 22.5 % (39.0-53.0) 23.7 % (39.0-53.0) Mean Corpuscular Volume 80 fL (79-100) 81 fL (79-100) Mean Corpuscular Hemoglobin 27 pg (25-35) 27 pg (25-35) Mean Corpuscular Hemoglobin Concent 34 g/dL (31-37) 33 g/dL (31-37) Red Cell Distribution Width 16.9 % (11.5-14.5) 17.0 % (11.5-14.5) Platelet Count 540 x10^3/uL (140-400) 521 x10^3/uL (140-400) Neutrophils (%) (Auto) 72 % (31-73) 86 % (31-73) Lymphocytes (%) (Auto) 17 % (24-48) 6 % (24-48) Monocytes (%) (Auto) 11 % (0-9) 8 % (0-9) Eosinophils (%) (Auto) 0 % (0-3) 0 % (0-3) Basophils (%) (Auto) 1 % (0-3) 0 % (0-3) Neutrophils # (Auto) 6.9 x10^3uL (1.8-7.7) 12.6 x10^3uL (1.8-7.7) Lymphocytes # (Auto) 1.6 x10^3/uL (1.0-4.8) 0.9 x10^3/uL (1.0-4.8) Monocytes # (Auto) 1.1 x10^3/uL (0.0-1.1) 1.1 x10^3/uL (0.0-1.1) Eosinophils # (Auto) 0.0 x10^3/uL (0.0-0.7) 0.0 x10^3/uL (0.0-0.7) Basophils # (Auto) 0.1 x10^3/uL (0.0-0.2) 0.1 x10^3/uL (0.0-0.2) Sodium Level 136 mmol/L (136-145) 138 mmol/L (136-145) Potassium Level 3.5 mmol/L (3.5-5.1) 3.8 mmol/L (3.5-5.1) Chloride Level 99 mmol/L (98-107) 102 mmol/L (98-107) Carbon Dioxide Level 27 mmol/L (21-32) 28 mmol/L (21-32) Anion Gap 10 (6-14) 8 (6-14) Blood Urea Nitrogen 15 mg/dL (8-26) 13 mg/dL (8-26) Creatinine 1.2 mg/dL (0.7-1.3) 1.2 mg/dL (0.7-1.3) Estimated GFR (Cockcroft-Gault) 62.2 62.2 Glucose Level 90 mg/dL (70-99) 104 mg/dL (70-99) Calcium Level 8.5 mg/dL (8.5-10.1) 8.4 mg/dL (8.5-10.1) Laboratory Tests Test 08/10/18 05:00 White Blood Count 14.7 x10^3/uL (4.0-11.0) Red Blood Count 2.93 x10^6/uL (4.30-5.70) Hemoglobin 7.9 g/dL (13.0-17.5) Hematocrit 23.7 % (39.0-53.0) Mean Corpuscular Volume 81 fL (79-100) Mean Corpuscular Hemoglobin 27 pg (25-35) Mean Corpuscular Hemoglobin Concent 33 g/dL (31-37) Red Cell Distribution Width 17.0 % (11.5-14.5) Platelet Count 521 x10^3/uL (140-400) Neutrophils (%) (Auto) 86 % (31-73) Lymphocytes (%) (Auto) 6 % (24-48) Monocytes (%) (Auto) 8 % (0-9) Eosinophils (%) (Auto) 0 % (0-3) Basophils (%) (Auto) 0 % (0-3) Neutrophils # (Auto) 12.6 x10^3uL (1.8-7.7) Lymphocytes # (Auto) 0.9 x10^3/uL (1.0-4.8) Monocytes # (Auto) 1.1 x10^3/uL (0.0-1.1) Eosinophils # (Auto) 0.0 x10^3/uL (0.0-0.7) Basophils # (Auto) 0.1 x10^3/uL (0.0-0.2) Sodium Level 138 mmol/L (136-145) Potassium Level 3.8 mmol/L (3.5-5.1) Chloride Level 102 mmol/L (98-107) Carbon Dioxide Level 28 mmol/L (21-32) Anion Gap 8 (6-14) Blood Urea Nitrogen 13 mg/dL (8-26) Creatinine 1.2 mg/dL (0.7-1.3) Estimated GFR (Cockcroft-Gault) 62.2 Glucose Level 104 mg/dL (70-99) Calcium Level 8.4 mg/dL (8.5-10.1) Microbiology 08/07/18 Blood Culture - Preliminary, Resulted NO GROWTH AFTER 2 DAYS Medications Current Medications Sodium Chloride 1,000 ml @ 1,000 mls/hr 1X ONCE IV Last administered on at 20:11; Start 08/07/18 at 19:45; Stop 08/07/18 at 20:44; Status DC Acetaminophen (Tylenol) 650 mg 1X ONCE PO Last administered on 08/07/18at 20:14 ; Start 08/07/18 at 19:45; Stop 08/07/18 at 19:49; Status DC Cefepime HCl (Maxipime) 2 gm 1X ONCE IVP Last administered on 08/07/18at 21:08 ; Start 08/07/18 at 20:30; Stop 08/07/18 at 20:31; Status DC Sodium Chloride 1,000 ml @ 1,000 mls/hr 1X ONCE IV Last administered on at 21:54; Start 08/07/18 at 20:30; Stop 08/07/18 at 21:29; Status DC Iohexol (Omnipaque 300 Mg/ml) 60 ml 1X ONCE IV Last administered on 08/07/18at 20:51; Start 08/07/18 at 20:45; Stop 08/07/18 at 20:46; Status DC Info (CONTRAST GIVEN -- Rx MONITORING) 1 each PRN DAILY PRN MC SEE COMMENTS; Start 08/07/18 at 20:45; Stop 08/09/18 at 20:44; Status DC Sodium Chloride 1,000 ml @ 100 mls/hr Q10H IV Last administered on 08/08/18 01:18; Start 08/07/18 at 23:00; Stop 08/08/18 at 22:59; Status DC Acetaminophen (Tylenol) 650 mg PRN Q4HRS PRN PO FEVER Last administered on 08/08 15:26; Start 08/07/18 at 23:00; Stop 08/08/18 at 22:59; Status DC Cefepime HCl (Maxipime) 2 gm Q8HRS IVP Last administered on 08/09/18 06:24; Start 08/08/18 at 06:00; Stop 08/09/18 at 09:14; Status DC Morphine Sulfate (Morphine Sulfate) 4 mg PRN Q3HRS PRN IV PAIN; Start 08/08/18 at 00:00 Ondansetron HCl (Zofran) 4 mg PRN Q6HRS PRN IV NAUSEA/VOMITING; Start 08/08/18 at 00:00 Tbo-Filgrastim (Granix) 480 mcg QHS SQ Last administered on 08/08/18 09:30; Start 08/08/18 at 07:45; Stop 08/09/18 at 07:22; Status DC Metronidazole 100 ml @ 100 mls/hr Q12HR IV Last administered on 08/09/18 08: 32; Start 08/08/18 at 10:00; Stop 08/09/18 at 09:14; Status DC Multi-Ingredient Mouthwash/Gargle (Magic Mouthwash) 10 ml PRN QID PRN PO MOUTH PAIN; Start 08/08/18 at 10:15 Apixaban (Eliquis) 5 mg BID PO Last administered on 08/10/18 10:43; Start at 10:30 Info (Anti-Coagulation Monitoring By Pharmacy) 1 each PRN DAILY PRN MC SEE COMMENTS Last administered on 08/08/18 14:22; Start 08/08/18 at 10:30 Piperacillin Sod/ Tazobactam Sod 3.375 gm/Sodium Chloride 50 ml @ 100 mls/hr Q6HRS IV Last administered on 08/10/18 05:30; Start 08/09/18 at 12:00 Micafungin Sodium 100 mg/Dextrose 100 ml @ 100 mls/hr Q24H IV Last administered on 08/10/18at 10:44; Start 08/09/18 at 10:00 Active Scripts Active Reported Eliquis (Apixaban) 5 Mg Tablet 5 Mg PO BID resume sunday07/03/18 Amlodipine Besylate 10 Mg Tablet 10 Mg PO DAILY Allopurinol 100 Mg Tablet 100 Mg PO BID Vitals/I & O Vital Sign - Last 24 Hours 08/09/18 08/09/18 08/09/18 08/09/18 15:00 19:00 20:00 22:49 Temp 98.3 98.2 98.2 98.3 98.2 98.2 Pulse 81 92 78 Resp 18 16 18 B/P (MAP) 117/51 (73) 138/57 (84) 135/60 (85) Pulse Ox 98 97 96 O2 Delivery Room Air Room Air Room Air Room Air 08/10/18 08/10/18 08/10/18 02:50 07:00 08:00 Temp 97.5 98.0 97.5 98.0 Pulse 63 82 Resp 16 20 B/P (MAP) 118/55 (76) 140/61 (87) Pulse Ox 97 97 O2 Delivery Room Air Room Air Room Air Nutrition Consultation Dietary Evaluation: Recommendations by RD: Increase Calorie Intake, Protein supplementation Comments: Encourage P.O. intake-honor food preferences, provide snacks on unit Rec. add Ensure TID for added protein and energy Expected Outcomes/Goals: P.O. intake to meet >75% estimated energy needs Interpretation of weight loss: >7.5% in 3 months Malnutrition Findings: Food and Nutrition Intake (Mod: <75% est energy req 7days Food and Nutrition Intake (Sev: <50% est energy req 5days Weight Status: Obese LARRY OLIVEIRA K III DO Aug 10, 2018 12:17
--- NOTE | 2018-08-10 12:26 | PDOC3 ---
Discharge Summary Visit Information Date of Admission: Aug 07, 2018 Date of Discharge: Aug 10, 2018 Admitting Diagnosis: Appendicitis, Lung ca, Fever Final Diagnosis Problems Medical Problems: (1) Acute appendicitis Status: Acute Brief Hospital Course Allergies Allergies Coded Allergies Type Severity Reaction Last Updated Verified fentanyl Adverse Reaction Intermediate 08/08/18 Yes Vital Signs Vital Signs Date Time Temp Pulse Resp B/P (MAP) Pulse Ox O2 Delivery O2 Flow Rate FiO2 08/10/18 08:00 Room Air 08/10/18 07:00 98.0 82 20 140/61 (87) 97 98.0 Lab Results Laboratory Tests Test 08/09/18 04:00 08/10/18 05:00 White Blood Count 9.6 x10^3/uL (4.0-11.0) 14.7 x10^3/uL (4.0-11.0) Red Blood Count 2.81 x10^6/uL (4.30-5.70) 2.93 x10^6/uL (4.30-5.70) Hemoglobin 7.6 g/dL (13.0-17.5) 7.9 g/dL (13.0-17.5) Hematocrit 22.5 % (39.0-53.0) 23.7 % (39.0-53.0) Mean Corpuscular Volume 80 fL (79-100) 81 fL (79-100) Mean Corpuscular Hemoglobin 27 pg (25-35) 27 pg (25-35) Mean Corpuscular Hemoglobin Concent 34 g/dL (31-37) 33 g/dL (31-37) Red Cell Distribution Width 16.9 % (11.5-14.5) 17.0 % (11.5-14.5) Platelet Count 540 x10^3/uL (140-400) 521 x10^3/uL (140-400) Neutrophils (%) (Auto) 72 % (31-73) 86 % (31-73) Lymphocytes (%) (Auto) 17 % (24-48) 6 % (24-48) Monocytes (%) (Auto) 11 % (0-9) 8 % (0-9) Eosinophils (%) (Auto) 0 % (0-3) 0 % (0-3) Basophils (%) (Auto) 1 % (0-3) 0 % (0-3) Neutrophils # (Auto) 6.9 x10^3uL (1.8-7.7) 12.6 x10^3uL (1.8-7.7) Lymphocytes # (Auto) 1.6 x10^3/uL (1.0-4.8) 0.9 x10^3/uL (1.0-4.8) Monocytes # (Auto) 1.1 x10^3/uL (0.0-1.1) 1.1 x10^3/uL (0.0-1.1) Eosinophils # (Auto) 0.0 x10^3/uL (0.0-0.7) 0.0 x10^3/uL (0.0-0.7) Basophils # (Auto) 0.1 x10^3/uL (0.0-0.2) 0.1 x10^3/uL (0.0-0.2) Sodium Level 136 mmol/L (136-145) 138 mmol/L (136-145) Potassium Level 3.5 mmol/L (3.5-5.1) 3.8 mmol/L (3.5-5.1) Chloride Level 99 mmol/L (98-107) 102 mmol/L (98-107) Carbon Dioxide Level 27 mmol/L (21-32) 28 mmol/L (21-32) Anion Gap 10 (6-14) 8 (6-14) Blood Urea Nitrogen 15 mg/dL (8-26) 13 mg/dL (8-26) Creatinine 1.2 mg/dL (0.7-1.3) 1.2 mg/dL (0.7-1.3) Estimated GFR (Cockcroft-Gault) 62.2 62.2 Glucose Level 90 mg/dL (70-99) 104 mg/dL (70-99) Calcium Level 8.5 mg/dL (8.5-10.1) 8.4 mg/dL (8.5-10.1) Laboratory Tests Test 08/10/18 05:00 White Blood Count 14.7 x10^3/uL (4.0-11.0) Red Blood Count 2.93 x10^6/uL (4.30-5.70) Hemoglobin 7.9 g/dL (13.0-17.5) Hematocrit 23.7 % (39.0-53.0) Mean Corpuscular Volume 81 fL (79-100) Mean Corpuscular Hemoglobin 27 pg (25-35) Mean Corpuscular Hemoglobin Concent 33 g/dL (31-37) Red Cell Distribution Width 17.0 % (11.5-14.5) Platelet Count 521 x10^3/uL (140-400) Neutrophils (%) (Auto) 86 % (31-73) Lymphocytes (%) (Auto) 6 % (24-48) Monocytes (%) (Auto) 8 % (0-9) Eosinophils (%) (Auto) 0 % (0-3) Basophils (%) (Auto) 0 % (0-3) Neutrophils # (Auto) 12.6 x10^3uL (1.8-7.7) Lymphocytes # (Auto) 0.9 x10^3/uL (1.0-4.8) Monocytes # (Auto) 1.1 x10^3/uL (0.0-1.1) Eosinophils # (Auto) 0.0 x10^3/uL (0.0-0.7) Basophils # (Auto) 0.1 x10^3/uL (0.0-0.2) Sodium Level 138 mmol/L (136-145) Potassium Level 3.8 mmol/L (3.5-5.1) Chloride Level 102 mmol/L (98-107) Carbon Dioxide Level 28 mmol/L (21-32) Anion Gap 8 (6-14) Blood Urea Nitrogen 13 mg/dL (8-26) Creatinine 1.2 mg/dL (0.7-1.3) Estimated GFR (Cockcroft-Gault) 62.2 Glucose Level 104 mg/dL (70-99) Calcium Level 8.4 mg/dL (8.5-10.1) Brief Hospital Course Mr. Gavin is a 58 old [sex] who has lung cancer and is on chemotherapy presented with [ fever and abdominal pain He was noted to have appendicitis on imaging He was admitted and we consulted general surgery and hematology oncology Past few days he has done much better I spoke with Dr. Cunningham yesterday The plan is to do an appendectomy appendectomy in a few months once his chemotherapy is done I did see and examine the patient is morning his heart tones were normal his lungs were clear his abdomen was soft and nontender extremities no edema overall he seems to be as baseline We plan to discharge Disposition is home Activity as tolerated Medications please see below Total time 34 minutes Discharge Information Condition at Discharge: Improved Follow Up: Weeks Disposition/Orders: D/C to Home Scheduled Allopurinol (Allopurinol) 100 Mg Tablet, 100 MG PO BID, (Reported) Entered as Reported by: DEREK ASENCIO on 12/01/172024 Last Taken: Unknown Dose on Unknown Date & Time Last Action: Last Taken Edited on 08/08/18553 by LEONORA THORNTON RN Amlodipine Besylate (Amlodipine Besylate) 10 Mg Tablet, 10 MG PO DAILY for HTN, (Reported) Entered as Reported by: DEREK ASENCIO on 12/01/172025 Last Taken: Unknown Dose on Unknown Date & Time Last Action: Last Taken Edited on 08/08/18553 by LEONORA THORNTON RN Apixaban (Eliquis) 5 Mg Tablet, 5 MG PO BID for pulmonary emboli/DVT, (Reported) resume sunday morning 07/03/18 Entered as Reported by: JULIANA SALTER on 12/05/17 1258 Last Taken: Unknown Dose on 08/07/18 Last Action: Continued on 08/08/18 1021 by JONATHAN BAE Discontinued Medications Lisinopril/Hydrochlorothiazide (Lisinopril-Hctz 20-12.5 Mg Tab) 1 Each Tablet, 1 TAB PO DAILY for HTN, (Reported) Entered as Reported by: DEREK ASENCIO on 12/01/172025 Last Action: Discontinued on 08/08/18553 by JEANNE REY NIAL K III DO Aug 10, 2018 12:26
--- NOTE | 2018-08-10 16:16 | NUR ---
Discharge was cancelled. Dr Galarza would like to continue IV therapy until Sunday.
[2018-08-10] MEDS: ALLOPURINOL 100 MG TABLET. PO SCH (21:05)
[2018-08-11 03:00] VITALS: BP 122/58
[2018-08-11] MEDS: PIPERACILLIN/TAZOBACTAM 3.375 GM in IV NORMAL SALINE 50ML 50 ML IV SCH ×3 (06:04→17:19)
[2018-08-11 06:29] LABS: BASO # 0.1 x10^3/uL (0.0-0.2); BASO % 0 % (0-3); EOS % 0 % (0-3); HEMATOCRIT 23.8 % (39.0-53.0); HEMOGLOBIN 7.8 g/dL (13.0-17.5); LYMPH # 1.7 x10^3/uL (1.0-4.8); LYMPH % 8 % (24-48); MEAN CORPUSCULAR HEMOGLOBIN 26 pg (25-35); MEAN CORPUSCULAR HGB CONC 33 g/dL (31-37); MEAN CORPUSCULAR VOLUME 80 fL (79-100); MONO # 1.4 x10^3/uL (0.0-1.1); MONO % 7 % (0-9); NEUT # 17.8 x10^3uL (1.8-7.7); NEUT % 85 % (31-73); PLATELET COUNT 559 x10^3/uL (140-400); RED BLOOD COUNT 2.96 x10^6/uL (4.30-5.70); RED CELL DISTRIBUTION WIDTH 16.9 % (11.5-14.5)
[2018-08-11 06:48] LABS: CALCIUM 8.4 mg/dL (8.5-10.1); CREATININE 1.1 mg/dL (0.7-1.3); GFR 68.8; POTASSIUM 3.7 mmol/L (3.5-5.1)
[2018-08-11 07:04] VITALS: BP 132/61
[2018-08-11] MEDS: APIXABAN 5 MG TABLET. PO SCH ×2 (08:42→21:15)
[2018-08-11] MEDS: ALLOPURINOL 100 MG TABLET. PO SCH ×2 (08:43→21:15)
[2018-08-11] MEDS: MICAFUNGIN 100 MG in IV DEXTROSE 5% 100ML 100 ML IV SCH (08:43)
--- NOTE | 2018-08-11 09:37 | PDOC ---
PROGRESS NOTES Subjective Subjective feels well, no pain Objective Objective Vital Signs Date Time Temp Pulse Resp B/P (MAP) Pulse Ox O2 Delivery O2 Flow Rate FiO2 08/11/18 07:04 98.4 77 18 132/61 (84) 99 Room Air 98.4 Intake and Output 08/11/18 07:00 Output Total 1000 ml Balance -1000 ml Output Urine Total 1000 ml # Voids 2 Physical Exam Abdomen: Soft, No tenderness Heart: Regular rate Extremities: No clubbing, No cyanosis General: Alert, Oriented X3, Cooperative Lungs: Clear to auscultation Neuro: Normal speech, Strength at 5/5 X4 ext Psych/Mental Status: Mental status NL Assessment Assessment Problems Medical Problems: (1) Acute appendicitis Status: Acute Plan Plan of Care Clinically doing well with medical management Comment Review of Relevant I have reviewed the following items florencio (where applicable) has been applied. Labs Laboratory Tests Test 08/10/18 05:00 08/11/18 06:10 White Blood Count 14.7 x10^3/uL (4.0-11.0) 21.0 x10^3/uL (4.0-11.0) Red Blood Count 2.93 x10^6/uL (4.30-5.70) 2.96 x10^6/uL (4.30-5.70) Hemoglobin 7.9 g/dL (13.0-17.5) 7.8 g/dL (13.0-17.5) Hematocrit 23.7 % (39.0-53.0) 23.8 % (39.0-53.0) Mean Corpuscular Volume 81 fL (79-100) 80 fL (79-100) Mean Corpuscular Hemoglobin 27 pg (25-35) 26 pg (25-35) Mean Corpuscular Hemoglobin Concent 33 g/dL (31-37) 33 g/dL (31-37) Red Cell Distribution Width 17.0 % (11.5-14.5) 16.9 % (11.5-14.5) Platelet Count 521 x10^3/uL (140-400) 559 x10^3/uL (140-400) Neutrophils (%) (Auto) 86 % (31-73) 85 % (31-73) Lymphocytes (%) (Auto) 6 % (24-48) 8 % (24-48) Monocytes (%) (Auto) 8 % (0-9) 7 % (0-9) Eosinophils (%) (Auto) 0 % (0-3) 0 % (0-3) Basophils (%) (Auto) 0 % (0-3) 0 % (0-3) Neutrophils # (Auto) 12.6 x10^3uL (1.8-7.7) 17.8 x10^3uL (1.8-7.7) Lymphocytes # (Auto) 0.9 x10^3/uL (1.0-4.8) 1.7 x10^3/uL (1.0-4.8) Monocytes # (Auto) 1.1 x10^3/uL (0.0-1.1) 1.4 x10^3/uL (0.0-1.1) Eosinophils # (Auto) 0.0 x10^3/uL (0.0-0.7) 0.0 x10^3/uL (0.0-0.7) Basophils # (Auto) 0.1 x10^3/uL (0.0-0.2) 0.1 x10^3/uL (0.0-0.2) Sodium Level 138 mmol/L (136-145) 139 mmol/L (136-145) Potassium Level 3.8 mmol/L (3.5-5.1) 3.7 mmol/L (3.5-5.1) Chloride Level 102 mmol/L (98-107) 104 mmol/L (98-107) Carbon Dioxide Level 28 mmol/L (21-32) 30 mmol/L (21-32) Anion Gap 8 (6-14) 5 (6-14) Blood Urea Nitrogen 13 mg/dL (8-26) 10 mg/dL (8-26) Creatinine 1.2 mg/dL (0.7-1.3) 1.1 mg/dL (0.7-1.3) Estimated GFR (Cockcroft-Gault) 62.2 68.8 Glucose Level 104 mg/dL (70-99) 101 mg/dL (70-99) Calcium Level 8.4 mg/dL (8.5-10.1) 8.4 mg/dL (8.5-10.1) Laboratory Tests Test 08/11/18 06:10 White Blood Count 21.0 x10^3/uL (4.0-11.0) Red Blood Count 2.96 x10^6/uL (4.30-5.70) Hemoglobin 7.8 g/dL (13.0-17.5) Hematocrit 23.8 % (39.0-53.0) Mean Corpuscular Volume 80 fL (79-100) Mean Corpuscular Hemoglobin 26 pg (25-35) Mean Corpuscular Hemoglobin Concent 33 g/dL (31-37) Red Cell Distribution Width 16.9 % (11.5-14.5) Platelet Count 559 x10^3/uL (140-400) Neutrophils (%) (Auto) 85 % (31-73) Lymphocytes (%) (Auto) 8 % (24-48) Monocytes (%) (Auto) 7 % (0-9) Eosinophils (%) (Auto) 0 % (0-3) Basophils (%) (Auto) 0 % (0-3) Neutrophils # (Auto) 17.8 x10^3uL (1.8-7.7) Lymphocytes # (Auto) 1.7 x10^3/uL (1.0-4.8) Monocytes # (Auto) 1.4 x10^3/uL (0.0-1.1) Eosinophils # (Auto) 0.0 x10^3/uL (0.0-0.7) Basophils # (Auto) 0.1 x10^3/uL (0.0-0.2) Sodium Level 139 mmol/L (136-145) Potassium Level 3.7 mmol/L (3.5-5.1) Chloride Level 104 mmol/L (98-107) Carbon Dioxide Level 30 mmol/L (21-32) Anion Gap 5 (6-14) Blood Urea Nitrogen 10 mg/dL (8-26) Creatinine 1.1 mg/dL (0.7-1.3) Estimated GFR (Cockcroft-Gault) 68.8 Glucose Level 101 mg/dL (70-99) Calcium Level 8.4 mg/dL (8.5-10.1) Microbiology 08/07/18 Blood Culture - Preliminary, Resulted NO GROWTH AFTER 3 DAYS Medications Current Medications Sodium Chloride 1,000 ml @ 1,000 mls/hr 1X ONCE IV Last administered on at 20:11; Start 08/07/18 at 19:45; Stop 08/07/18 at 20:44; Status DC Acetaminophen (Tylenol) 650 mg 1X ONCE PO Last administered on 08/07/18at 20:14 ; Start 08/07/18 at 19:45; Stop 08/07/18 at 19:49; Status DC Cefepime HCl (Maxipime) 2 gm 1X ONCE IVP Last administered on 08/07/18at 21:08 ; Start 08/07/18 at 20:30; Stop 08/07/18 at 20:31; Status DC Sodium Chloride 1,000 ml @ 1,000 mls/hr 1X ONCE IV Last administered on at 21:54; Start 08/07/18 at 20:30; Stop 08/07/18 at 21:29; Status DC Iohexol (Omnipaque 300 Mg/ml) 60 ml 1X ONCE IV Last administered on 08/07/18at 20:51; Start 08/07/18 at 20:45; Stop 08/07/18 at 20:46; Status DC Info (CONTRAST GIVEN -- Rx MONITORING) 1 each PRN DAILY PRN MC SEE COMMENTS; Start 08/07/18 at 20:45; Stop 08/09/18 at 20:44; Status DC Sodium Chloride 1,000 ml @ 100 mls/hr Q10H IV Last administered on 08/08/18at 01:18; Start 08/07/18 at 23:00; Stop 08/08/18 at 22:59; Status DC Acetaminophen (Tylenol) 650 mg PRN Q4HRS PRN PO FEVER Last administered on 08/08at 15:26; Start 08/07/18 at 23:00; Stop 08/08/18 at 22:59; Status DC Cefepime HCl (Maxipime) 2 gm Q8HRS IVP Last administered on 08/09/18at 06:24; Start 08/08/18 at 06:00; Stop 08/09/18 at 09:14; Status DC Morphine Sulfate (Morphine Sulfate) 4 mg PRN Q3HRS PRN IV PAIN; Start 08/08/18 at 00:00 Ondansetron HCl (Zofran) 4 mg PRN Q6HRS PRN IV NAUSEA/VOMITING; Start 08/08/18 at 00:00 Tbo-Filgrastim (Granix) 480 mcg QHS SQ Last administered on 08/08/18 09:30; Start 08/08/18 at 07:45; Stop 08/09/18 at 07:22; Status DC Metronidazole 100 ml @ 100 mls/hr Q12HR IV Last administered on 08/09/18 08: 32; Start 08/08/18 at 10:00; Stop 08/09/18 at 09:14; Status DC Multi-Ingredient Mouthwash/Gargle (Magic Mouthwash) 10 ml PRN QID PRN PO MOUTH PAIN; Start 08/08/18 at 10:15 Apixaban (Eliquis) 5 mg BID PO Last administered on 08/11/18 08:42; Start at 10:30 Info (Anti-Coagulation Monitoring By Pharmacy) 1 each PRN DAILY PRN MC SEE COMMENTS Last administered on 08/08/18at 14:22; Start 08/08/18 at 10:30 Piperacillin Sod/ Tazobactam Sod 3.375 gm/Sodium Chloride 50 ml @ 100 mls/hr Q6HRS IV Last administered on 08/11/18 06:04; Start 08/09/18 at 12:00 Micafungin Sodium 100 mg/Dextrose 100 ml @ 100 mls/hr Q24H IV Last administered on 08/11/18 08:43; Start 08/09/18 at 10:00 Allopurinol (Zyloprim) 100 mg BID PO Last administered on 08/11/18 08:43; Start 08/10/18 at 21:00 Active Scripts Active Reported Eliquis (Apixaban) 5 Mg Tablet 5 Mg PO BID resume sunday morning 07/03/18 Amlodipine Besylate 10 Mg Tablet 10 Mg PO DAILY Allopurinol 100 Mg Tablet 100 Mg PO BID Vitals/I & O Vital Sign - Last 24 Hours 08/10/18 08/10/18 08/10/18 08/10/18 11:00 15:20 15:21 19:00 Temp 98.5 98.2 98.5 98.5 98.2 98.5 Pulse 77 80 77 Resp 18 18 18 B/P (MAP) 139/57 (84) 129/6 (47) 129/67 (87) 134/60 (84) Pulse Ox 99 99 96 O2 Delivery Room Air Room Air Room Air 08/10/18 08/10/18 08/11/18 08/11/18 20:00 23:00 03:00 07:04 Temp 98.2 98.4 98.4 98.2 98.4 98.4 Pulse 73 73 77 Resp 18 18 18 B/P (MAP) 133/60 (84) 122/58 (79) 132/61 (84) Pulse Ox 99 98 99 O2 Delivery Room Air Room Air Room Air Room Air Intake and Output 08/10/18 08/10/18 08/11/18 15:00 23:00 07:00 Output Total 1000 ml Balance -1000 ml Nutrition Consultation Dietary Evaluation: Recommendations by RD: Increase Calorie Intake, Protein supplementation Comments: Encourage P.O. intake-honor food preferences, provide snacks on unit Rec. add Ensure TID for added protein and energy Expected Outcomes/Goals: P.O. intake to meet >75% estimated energy needs Interpretation of weight loss: >7.5% in 3 months Malnutrition Findings: Food and Nutrition Intake (Mod: <75% est energy req 7days Food and Nutrition Intake (Sev: <50% est energy req 5days Weight Status: Obese DILLON COOK MD Aug 11, 2018 09:37
[2018-08-11 11:00] VITALS: BP 129/56
--- NOTE | 2018-08-11 13:14 | PDOC ---
Infectious Disease Note Subjective Subjective No fevers last 24 hours Less abdominal pain Denies N/V/D Cough is baseline Tolerating soft diet ROS ROS o/w neg Vital Sign Vital Signs Vital Signs Date Time Temp Pulse Resp B/P (MAP) Pulse Ox O2 Delivery O2 Flow Rate FiO2 08/11/18 11:00 98.5 78 18 129/56 (80) 98 Room Air 98.5 Physical Exam PHYSICAL EXAM GENERAL: Propped up in bed, appears comfortable HEENT: Oral lesions in lateral tongue. No exudate. NECK: Supple, no JVD. LUNGS: Decreased breath sounds at the bases, left greater than the right. No wheezing. HEART: S1, S2 with no gallops or murmurs. ABDOMEN: Obese, soft, mildly tender right lower and mid quadrant. EXTREMITIES: No edema, no cyanosis. DERM: Warm, dry, no generalized rash. NEUROLOGIC: Alert and oriented x 3. Grossly nonfocal. Right chest wall Port-A-Cath clean Labs Lab Laboratory Tests Test 08/11/18 06:10 White Blood Count 21.0 x10^3/uL (4.0-11.0) Red Blood Count 2.96 x10^6/uL (4.30-5.70) Hemoglobin 7.8 g/dL (13.0-17.5) Hematocrit 23.8 % (39.0-53.0) Mean Corpuscular Volume 80 fL (79-100) Mean Corpuscular Hemoglobin 26 pg (25-35) Mean Corpuscular Hemoglobin Concent 33 g/dL (31-37) Red Cell Distribution Width 16.9 % (11.5-14.5) Platelet Count 559 x10^3/uL (140-400) Neutrophils (%) (Auto) 85 % (31-73) Lymphocytes (%) (Auto) 8 % (24-48) Monocytes (%) (Auto) 7 % (0-9) Eosinophils (%) (Auto) 0 % (0-3) Basophils (%) (Auto) 0 % (0-3) Neutrophils # (Auto) 17.8 x10^3uL (1.8-7.7) Lymphocytes # (Auto) 1.7 x10^3/uL (1.0-4.8) Monocytes # (Auto) 1.4 x10^3/uL (0.0-1.1) Eosinophils # (Auto) 0.0 x10^3/uL (0.0-0.7) Basophils # (Auto) 0.1 x10^3/uL (0.0-0.2) Sodium Level 139 mmol/L (136-145) Potassium Level 3.7 mmol/L (3.5-5.1) Chloride Level 104 mmol/L (98-107) Carbon Dioxide Level 30 mmol/L (21-32) Anion Gap 5 (6-14) Blood Urea Nitrogen 10 mg/dL (8-26) Creatinine 1.1 mg/dL (0.7-1.3) Estimated GFR (Cockcroft-Gault) 68.8 Glucose Level 101 mg/dL (70-99) Calcium Level 8.4 mg/dL (8.5-10.1) Micro Microbiology 08/07/18 Blood Culture - Preliminary, Resulted NO GROWTH AFTER 3 DAYS Objective Assessment Appendicitis. Fever, better Neutropenia from recent chemotherapy. s/p Granix, 08/08 - increasing Adenocarcinoma of lung, on chemotherapy through Port-A-Cath, right chest wall, last chemo on 07/31/2018. History of colon polyp. History of colonic pseudoobstruction in 05/2018. History of pulmonary embolism. Acute kidney injury, better Mucositis Anemia Plan Plan of Care Cont Zosyn and micafungin was on cefepime and Flagyl magic mouth wash monitor labs/temp/renal func/cults Gen surgery following. rec interval appendectomy pending chemo F/u labs consider repeat CT 08/12 Supportive care. D/w with at bedside DAYANA HOFFMAN MD Aug 11, 2018 13:14
--- NOTE | 2018-08-11 13:44 | PDOC ---
PROGRESS NOTES Chief Complaint Chief Complaint Neutropenic fever with appendicitis History of Present Illness History of Present Illness The patient was seen resting in bed today. His was present in the room today. Today he had a cough that he states has been present since his lobectomy. The patient needs a couple more days of IV abx before he can be discharged. Plans for appendectomy after he has completed his chemotherapy in 3 months. Vitals Vitals Vital Signs Date Time Temp Pulse Resp B/P (MAP) Pulse Ox O2 Delivery O2 Flow Rate FiO2 08/11/18 11:00 98.5 78 18 129/56 (80) 98 Room Air 98.5 Physical Exam General: Alert, Oriented X3, Cooperative, No acute distress Heart: Regular rate, Normal S1, Normal S2, No murmurs Lungs: Clear (No wheezes, rales, or rhonci), Other Abdomen: Soft, No tenderness, No masses Extremities: No edema, Normal pulses, No tenderness/swelling Skin: No rashes, No breakdown, No significant lesion Labs LABS Laboratory Tests Test 08/11/18 06:10 White Blood Count 21.0 x10^3/uL (4.0-11.0) Red Blood Count 2.96 x10^6/uL (4.30-5.70) Hemoglobin 7.8 g/dL (13.0-17.5) Hematocrit 23.8 % (39.0-53.0) Mean Corpuscular Volume 80 fL (79-100) Mean Corpuscular Hemoglobin 26 pg (25-35) Mean Corpuscular Hemoglobin Concent 33 g/dL (31-37) Red Cell Distribution Width 16.9 % (11.5-14.5) Platelet Count 559 x10^3/uL (140-400) Neutrophils (%) (Auto) 85 % (31-73) Lymphocytes (%) (Auto) 8 % (24-48) Monocytes (%) (Auto) 7 % (0-9) Eosinophils (%) (Auto) 0 % (0-3) Basophils (%) (Auto) 0 % (0-3) Neutrophils # (Auto) 17.8 x10^3uL (1.8-7.7) Lymphocytes # (Auto) 1.7 x10^3/uL (1.0-4.8) Monocytes # (Auto) 1.4 x10^3/uL (0.0-1.1) Eosinophils # (Auto) 0.0 x10^3/uL (0.0-0.7) Basophils # (Auto) 0.1 x10^3/uL (0.0-0.2) Sodium Level 139 mmol/L (136-145) Potassium Level 3.7 mmol/L (3.5-5.1) Chloride Level 104 mmol/L (98-107) Carbon Dioxide Level 30 mmol/L (21-32) Anion Gap 5 (6-14) Blood Urea Nitrogen 10 mg/dL (8-26) Creatinine 1.1 mg/dL (0.7-1.3) Estimated GFR (Cockcroft-Gault) 68.8 Glucose Level 101 mg/dL (70-99) Calcium Level 8.4 mg/dL (8.5-10.1) Review of Systems Review of Systems He has a cough today. The patient denies fevers, chils, nausea, vomiting, CP, SOB, and diarrhea. Assessment and Plan Assessmemt and Plan Problems Medical Problems: (1) Acute appendicitis Status: Acute ASSESSMENT Fever Abdominal pain secondary to Acute Appendicitis Lung Cancer s/p lobectomy 05/22/18, currently on chemo, last chemo was 07/31, has 3 months remaining Leukopenia 2.2 -> 9.6 -> 14.7 -> 21.0 Neutropenia 1.1 -> 6.9 -> 12,6 -> 17.8 Hx of PE on oral AC PLAN no plans for surgery at this time, will wait until patient has completed chemotherapy Lap appendectomy in the future IV Zosyn and micafungin, continue for a few more days before discharge, per ID ID, general surgery, and heme onc consults F/u labs Monitor wbc count and ANC Continue home meds PT/OT DVT prophylaxis Appreciate ID input Hope to DC tomorrow if stable and OK with ID Comment Review of Relevant I have reviewed the following items florencio (where applicable) has been applied. Labs Laboratory Tests Test 08/10/18 05:00 08/11/18 06:10 White Blood Count 14.7 x10^3/uL (4.0-11.0) 21.0 x10^3/uL (4.0-11.0) Red Blood Count 2.93 x10^6/uL (4.30-5.70) 2.96 x10^6/uL (4.30-5.70) Hemoglobin 7.9 g/dL (13.0-17.5) 7.8 g/dL (13.0-17.5) Hematocrit 23.7 % (39.0-53.0) 23.8 % (39.0-53.0) Mean Corpuscular Volume 81 fL (79-100) 80 fL (79-100) Mean Corpuscular Hemoglobin 27 pg (25-35) 26 pg (25-35) Mean Corpuscular Hemoglobin Concent 33 g/dL (31-37) 33 g/dL (31-37) Red Cell Distribution Width 17.0 % (11.5-14.5) 16.9 % (11.5-14.5) Platelet Count 521 x10^3/uL (140-400) 559 x10^3/uL (140-400) Neutrophils (%) (Auto) 86 % (31-73) 85 % (31-73) Lymphocytes (%) (Auto) 6 % (24-48) 8 % (24-48) Monocytes (%) (Auto) 8 % (0-9) 7 % (0-9) Eosinophils (%) (Auto) 0 % (0-3) 0 % (0-3) Basophils (%) (Auto) 0 % (0-3) 0 % (0-3) Neutrophils # (Auto) 12.6 x10^3uL (1.8-7.7) 17.8 x10^3uL (1.8-7.7) Lymphocytes # (Auto) 0.9 x10^3/uL (1.0-4.8) 1.7 x10^3/uL (1.0-4.8) Monocytes # (Auto) 1.1 x10^3/uL (0.0-1.1) 1.4 x10^3/uL (0.0-1.1) Eosinophils # (Auto) 0.0 x10^3/uL (0.0-0.7) 0.0 x10^3/uL (0.0-0.7) Basophils # (Auto) 0.1 x10^3/uL (0.0-0.2) 0.1 x10^3/uL (0.0-0.2) Sodium Level 138 mmol/L (136-145) 139 mmol/L (136-145) Potassium Level 3.8 mmol/L (3.5-5.1) 3.7 mmol/L (3.5-5.1) Chloride Level 102 mmol/L (98-107) 104 mmol/L (98-107) Carbon Dioxide Level 28 mmol/L (21-32) 30 mmol/L (21-32) Anion Gap 8 (6-14) 5 (6-14) Blood Urea Nitrogen 13 mg/dL (8-26) 10 mg/dL (8-26) Creatinine 1.2 mg/dL (0.7-1.3) 1.1 mg/dL (0.7-1.3) Estimated GFR (Cockcroft-Gault) 62.2 68.8 Glucose Level 104 mg/dL (70-99) 101 mg/dL (70-99) Calcium Level 8.4 mg/dL (8.5-10.1) 8.4 mg/dL (8.5-10.1) Laboratory Tests Test 08/11/18 06:10 White Blood Count 21.0 x10^3/uL (4.0-11.0) Red Blood Count 2.96 x10^6/uL (4.30-5.70) Hemoglobin 7.8 g/dL (13.0-17.5) Hematocrit 23.8 % (39.0-53.0) Mean Corpuscular Volume 80 fL (79-100) Mean Corpuscular Hemoglobin 26 pg (25-35) Mean Corpuscular Hemoglobin Concent 33 g/dL (31-37) Red Cell Distribution Width 16.9 % (11.5-14.5) Platelet Count 559 x10^3/uL (140-400) Neutrophils (%) (Auto) 85 % (31-73) Lymphocytes (%) (Auto) 8 % (24-48) Monocytes (%) (Auto) 7 % (0-9) Eosinophils (%) (Auto) 0 % (0-3) Basophils (%) (Auto) 0 % (0-3) Neutrophils # (Auto) 17.8 x10^3uL (1.8-7.7) Lymphocytes # (Auto) 1.7 x10^3/uL (1.0-4.8) Monocytes # (Auto) 1.4 x10^3/uL (0.0-1.1) Eosinophils # (Auto) 0.0 x10^3/uL (0.0-0.7) Basophils # (Auto) 0.1 x10^3/uL (0.0-0.2) Sodium Level 139 mmol/L (136-145) Potassium Level 3.7 mmol/L (3.5-5.1) Chloride Level 104 mmol/L (98-107) Carbon Dioxide Level 30 mmol/L (21-32) Anion Gap 5 (6-14) Blood Urea Nitrogen 10 mg/dL (8-26) Creatinine 1.1 mg/dL (0.7-1.3) Estimated GFR (Cockcroft-Gault) 68.8 Glucose Level 101 mg/dL (70-99) Calcium Level 8.4 mg/dL (8.5-10.1) Microbiology 08/07/18 Blood Culture - Preliminary, Resulted NO GROWTH AFTER 3 DAYS Medications Current Medications Sodium Chloride 1,000 ml @ 1,000 mls/hr 1X ONCE IV Last administered on at 20:11; Start 08/07/18 at 19:45; Stop 08/07/18 at 20:44; Status DC Acetaminophen (Tylenol) 650 mg 1X ONCE PO Last administered on 08/07/18at 20:14 ; Start 08/07/18 at 19:45; Stop 08/07/18 at 19:49; Status DC Cefepime HCl (Maxipime) 2 gm 1X ONCE IVP Last administered on 08/07/18at 21:08 ; Start 08/07/18 at 20:30; Stop 08/07/18 at 20:31; Status DC Sodium Chloride 1,000 ml @ 1,000 mls/hr 1X ONCE IV Last administered on at 21:54; Start 08/07/18 at 20:30; Stop 08/07/18 at 21:29; Status DC Iohexol (Omnipaque 300 Mg/ml) 60 ml 1X ONCE IV Last administered on 08/07/18at 20:51; Start 08/07/18 at 20:45; Stop 08/07/18 at 20:46; Status DC Info (CONTRAST GIVEN -- Rx MONITORING) 1 each PRN DAILY PRN MC SEE COMMENTS; Start 08/07/18 at 20:45; Stop 08/09/18 at 20:44; Status DC Sodium Chloride 1,000 ml @ 100 mls/hr Q10H IV Last administered on 08/08/18at 01:18; Start 08/07/18 at 23:00; Stop 08/08/18 at 22:59; Status DC Acetaminophen (Tylenol) 650 mg PRN Q4HRS PRN PO FEVER Last administered on 08/08 15:26; Start 08/07/18 at 23:00; Stop 08/08/18 at 22:59; Status DC Cefepime HCl (Maxipime) 2 gm Q8HRS IVP Last administered on 08/09/18 06:24; Start 08/08/18 at 06:00; Stop 08/09/18 at 09:14; Status DC Morphine Sulfate (Morphine Sulfate) 4 mg PRN Q3HRS PRN IV PAIN; Start 08/08/18 at 00:00 Ondansetron HCl (Zofran) 4 mg PRN Q6HRS PRN IV NAUSEA/VOMITING; Start 08/08/18 at 00:00 Tbo-Filgrastim (Granix) 480 mcg QHS SQ Last administered on 08/08/18 09:30; Start 08/08/18 at 07:45; Stop 08/09/18 at 07:22; Status DC Metronidazole 100 ml @ 100 mls/hr Q12HR IV Last administered on 08/09/18 08: 32; Start 08/08/18 at 10:00; Stop 08/09/18 at 09:14; Status DC Multi-Ingredient Mouthwash/Gargle (Magic Mouthwash) 10 ml PRN QID PRN PO MOUTH PAIN; Start 08/08/18 at 10:15 Apixaban (Eliquis) 5 mg BID PO Last administered on 08/11/18 08:42; Start at 10:30 Info (Anti-Coagulation Monitoring By Pharmacy) 1 each PRN DAILY PRN MC SEE COMMENTS Last administered on 08/08/18 14:22; Start 08/08/18 at 10:30 Piperacillin Sod/ Tazobactam Sod 3.375 gm/Sodium Chloride 50 ml @ 100 mls/hr Q6HRS IV Last administered on 08/11/18at 12:02; Start 08/09/18 at 12:00 Micafungin Sodium 100 mg/Dextrose 100 ml @ 100 mls/hr Q24H IV Last administered on 08/11/18at 08:43; Start 08/09/18 at 10:00 Allopurinol (Zyloprim) 100 mg BID PO Last administered on 08/11/18at 08:43; Start 08/10/18 at 21:00 Active Scripts Active Reported Eliquis (Apixaban) 5 Mg Tablet 5 Mg PO BID resume sunday07/03/18 Amlodipine Besylate 10 Mg Tablet 10 Mg PO DAILY Allopurinol 100 Mg Tablet 100 Mg PO BID Vitals/I & O Vital Sign - Last 24 Hours 08/10/18 08/10/18 08/10/18 08/10/18 15:20 15:21 19:00 20:00 Temp 98.2 98.5 98.2 98.5 Pulse 80 77 Resp 18 18 B/P (MAP) 129/6 (47) 129/67 (87) 134/60 (84) Pulse Ox 99 96 O2 Delivery Room Air Room Air Room Air 08/10/18 08/11/18 08/11/18 08/11/18 23:00 03:00 07:04 08:00 Temp 98.2 98.4 98.4 98.2 98.4 98.4 Pulse 73 73 77 Resp 18 18 18 B/P (MAP) 133/60 (84) 122/58 (79) 132/61 (84) Pulse Ox 99 98 99 O2 Delivery Room Air Room Air Room Air Room Air 08/11/18 11:00 Temp 98.5 98.5 Pulse 78 Resp 18 B/P (MAP) 129/56 (80) Pulse Ox 98 O2 Delivery Room Air Intake and Output 08/10/18 08/10/18 08/11/18 15:00 23:00 07:00 Output Total 1000 ml Balance -1000 ml Nutrition Consultation Dietary Evaluation: Recommendations by RD: Increase Calorie Intake, Protein supplementation Comments: Encourage P.O. intake-honor food preferences, provide snacks on unit Rec. add Ensure TID for added protein and energy Expected Outcomes/Goals: P.O. intake to meet >75% estimated energy needs Interpretation of weight loss: >7.5% in 3 months Malnutrition Findings: Food and Nutrition Intake (Mod: <75% est energy req 7days Food and Nutrition Intake (Sev: <50% est energy req 5days Weight Status: Obese LARRY OLIVEIRA III DO Aug 11, 2018 13:43
[2018-08-11 15:00] VITALS: BP 138/58
[2018-08-11 19:00] VITALS: BP 131/53
[2018-08-11 23:00] VITALS: BP 145/62
[2018-08-12] MEDS: PIPERACILLIN/TAZOBACTAM 3.375 GM in IV NORMAL SALINE 50ML 50 ML IV SCH ×3 (00:07→11:54)
[2018-08-12 03:17] VITALS: BP 127/59
[2018-08-12 06:36] LABS: CALCIUM 8.5 mg/dL (8.5-10.1); GFR 76.7; POTASSIUM 3.6 mmol/L (3.5-5.1)
[2018-08-12 06:46] LABS: BASO # 0.1 x10^3/uL (0.0-0.2); BASO % 0 % (0-3); EOS % 0 % (0-3); HEMOGLOBIN 7.6 g/dL (13.0-17.5); LYMPH # 1.8 x10^3/uL (1.0-4.8); LYMPH % 10 % (24-48); MEAN CORPUSCULAR HEMOGLOBIN 27 pg (25-35); MEAN CORPUSCULAR HGB CONC 33 g/dL (31-37); MEAN CORPUSCULAR VOLUME 81 fL (79-100); MONO # 1.8 x10^3/uL (0.0-1.1); MONO % 10 % (0-9); NEUT # 13.5 x10^3uL (1.8-7.7); NEUT % 79 % (31-73); PLATELET COUNT 516 x10^3/uL (140-400); RED BLOOD COUNT 2.84 x10^6/uL (4.30-5.70); RED CELL DISTRIBUTION WIDTH 17.6 % (11.5-14.5); WHITE BLOOD COUNT 17.2 x10^3/uL (4.0-11.0)
[2018-08-12 07:00] VITALS: BP 125/57
--- NOTE | 2018-08-12 08:52 | PDOC ---
Infectious Disease Note Subjective Subjective Less abdominal pain Denies N/V/D Cough is improving Tolerating soft diet ROS ROS o/w neg Vital Sign Vital Signs Vital Signs Date Time Temp Pulse Resp B/P (MAP) Pulse Ox O2 Delivery O2 Flow Rate FiO2 08/12/18 07:00 97.6 76 16 125/57 (79) 94 Room Air 97.6 Physical Exam PHYSICAL EXAM GENERAL: Propped up in bed, appears comfortable HEENT: Oral lesions in lateral tongue. No exudate. NECK: Supple, no JVD. LUNGS: Decreased breath sounds at the bases, left greater than the right. No wheezing. HEART: S1, S2 with no gallops or murmurs. ABDOMEN: Obese, soft, still mildly tender right lower and mid quadrant with deep palpation. EXTREMITIES: No edema, no cyanosis. DERM: Warm, dry, no generalized rash. NEUROLOGIC: Alert and oriented x 3. Grossly nonfocal. Right chest wall Port-A-Cath clean Labs Lab Laboratory Tests Test 08/12/18 06:00 White Blood Count 17.2 x10^3/uL (4.0-11.0) Red Blood Count 2.84 x10^6/uL (4.30-5.70) Hemoglobin 7.6 g/dL (13.0-17.5) Hematocrit 23.0 % (39.0-53.0) Mean Corpuscular Volume 81 fL (79-100) Mean Corpuscular Hemoglobin 27 pg (25-35) Mean Corpuscular Hemoglobin Concent 33 g/dL (31-37) Red Cell Distribution Width 17.6 % (11.5-14.5) Platelet Count 516 x10^3/uL (140-400) Neutrophils (%) (Auto) 79 % (31-73) Lymphocytes (%) (Auto) 10 % (24-48) Monocytes (%) (Auto) 10 % (0-9) Eosinophils (%) (Auto) 0 % (0-3) Basophils (%) (Auto) 0 % (0-3) Neutrophils # (Auto) 13.5 x10^3uL (1.8-7.7) Lymphocytes # (Auto) 1.8 x10^3/uL (1.0-4.8) Monocytes # (Auto) 1.8 x10^3/uL (0.0-1.1) Eosinophils # (Auto) 0.0 x10^3/uL (0.0-0.7) Basophils # (Auto) 0.1 x10^3/uL (0.0-0.2) Sodium Level 136 mmol/L (136-145) Potassium Level 3.6 mmol/L (3.5-5.1) Chloride Level 103 mmol/L (98-107) Carbon Dioxide Level 31 mmol/L (21-32) Anion Gap 2 (6-14) Blood Urea Nitrogen 9 mg/dL (8-26) Creatinine 1.0 mg/dL (0.7-1.3) Estimated GFR (Cockcroft-Gault) 76.7 Glucose Level 96 mg/dL (70-99) Calcium Level 8.5 mg/dL (8.5-10.1) Micro Microbiology 08/07/18 Blood Culture - Preliminary, Resulted NO GROWTH AFTER 3 DAYS Objective Assessment Appendicitis. Fever, better Neutropenia from recent chemotherapy. s/p Granix, 08/08 - improving Adenocarcinoma of lung, on chemotherapy through Port-A-Cath, right chest wall, last chemo on 07/31/2018. History of colon polyp. History of colonic pseudoobstruction in 05/2018. History of pulmonary embolism. Acute kidney injury, better Mucositis Anemia Plan Plan of Care Cont Zosyn and micafungin repeat CT scan this am and if improved/stable will change to po for d/c magic mouth wash monitor labs/temp/renal func/cults Gen surgery following. rec interval appendectomy pending chemo D/w Nieves WOMACKP - Gen surg D/w with at bedside DAYANA HOFFMAN MD Aug 12, 2018 08:52
[2018-08-12] MEDS: APIXABAN 5 MG TABLET. PO SCH (08:59)
[2018-08-12] MEDS: ALLOPURINOL 100 MG TABLET. PO SCH (08:59)
--- NOTE | 2018-08-12 09:00 | PDOC ---
BHAVIN LOPEZ BRANCH OPERATIONS COORDINATOR 08/12/18 0900: SURGICAL PROGRESS NOTE Subjective no pain no nausea reports bowels functioning tolerating diet Vital Signs Vital Signs Date Time Temp Pulse Resp B/P (MAP) Pulse Ox O2 Delivery O2 Flow Rate FiO2 08/12/18 07:00 97.6 76 16 125/57 (79) 94 Room Air 97.6 I&O Intake and Output 08/12/18 07:00 Intake Total 1500 ml Output Total 951 ml Balance 549 ml Intake Oral 1500 ml Output Urine Total 950 ml Stool Total 1 ml # Voids 4 General: Alert, Oriented X3, Cooperative, No acute distress Abdomen: Soft, No tenderness Labs Laboratory Tests Test 08/11/18 06:10 08/12/18 06:00 White Blood Count 21.0 x10^3/uL (4.0-11.0) 17.2 x10^3/uL (4.0-11.0) Red Blood Count 2.96 x10^6/uL (4.30-5.70) 2.84 x10^6/uL (4.30-5.70) Hemoglobin 7.8 g/dL (13.0-17.5) 7.6 g/dL (13.0-17.5) Hematocrit 23.8 % (39.0-53.0) 23.0 % (39.0-53.0) Mean Corpuscular Volume 80 fL (79-100) 81 fL (79-100) Mean Corpuscular Hemoglobin 26 pg (25-35) 27 pg (25-35) Mean Corpuscular Hemoglobin Concent 33 g/dL (31-37) 33 g/dL (31-37) Red Cell Distribution Width 16.9 % (11.5-14.5) 17.6 % (11.5-14.5) Platelet Count 559 x10^3/uL (140-400) 516 x10^3/uL (140-400) Neutrophils (%) (Auto) 85 % (31-73) 79 % (31-73) Lymphocytes (%) (Auto) 8 % (24-48) 10 % (24-48) Monocytes (%) (Auto) 7 % (0-9) 10 % (0-9) Eosinophils (%) (Auto) 0 % (0-3) 0 % (0-3) Basophils (%) (Auto) 0 % (0-3) 0 % (0-3) Neutrophils # (Auto) 17.8 x10^3uL (1.8-7.7) 13.5 x10^3uL (1.8-7.7) Lymphocytes # (Auto) 1.7 x10^3/uL (1.0-4.8) 1.8 x10^3/uL (1.0-4.8) Monocytes # (Auto) 1.4 x10^3/uL (0.0-1.1) 1.8 x10^3/uL (0.0-1.1) Eosinophils # (Auto) 0.0 x10^3/uL (0.0-0.7) 0.0 x10^3/uL (0.0-0.7) Basophils # (Auto) 0.1 x10^3/uL (0.0-0.2) 0.1 x10^3/uL (0.0-0.2) Sodium Level 139 mmol/L (136-145) 136 mmol/L (136-145) Potassium Level 3.7 mmol/L (3.5-5.1) 3.6 mmol/L (3.5-5.1) Chloride Level 104 mmol/L (98-107) 103 mmol/L (98-107) Carbon Dioxide Level 30 mmol/L (21-32) 31 mmol/L (21-32) Anion Gap 5 (6-14) 2 (6-14) Blood Urea Nitrogen 10 mg/dL (8-26) 9 mg/dL (8-26) Creatinine 1.1 mg/dL (0.7-1.3) 1.0 mg/dL (0.7-1.3) Estimated GFR (Cockcroft-Gault) 68.8 76.7 Glucose Level 101 mg/dL (70-99) 96 mg/dL (70-99) Calcium Level 8.4 mg/dL (8.5-10.1) 8.5 mg/dL (8.5-10.1) Laboratory Tests Test 08/12/18 06:00 White Blood Count 17.2 x10^3/uL (4.0-11.0) Red Blood Count 2.84 x10^6/uL (4.30-5.70) Hemoglobin 7.6 g/dL (13.0-17.5) Hematocrit 23.0 % (39.0-53.0) Mean Corpuscular Volume 81 fL (79-100) Mean Corpuscular Hemoglobin 27 pg (25-35) Mean Corpuscular Hemoglobin Concent 33 g/dL (31-37) Red Cell Distribution Width 17.6 % (11.5-14.5) Platelet Count 516 x10^3/uL (140-400) Neutrophils (%) (Auto) 79 % (31-73) Lymphocytes (%) (Auto) 10 % (24-48) Monocytes (%) (Auto) 10 % (0-9) Eosinophils (%) (Auto) 0 % (0-3) Basophils (%) (Auto) 0 % (0-3) Neutrophils # (Auto) 13.5 x10^3uL (1.8-7.7) Lymphocytes # (Auto) 1.8 x10^3/uL (1.0-4.8) Monocytes # (Auto) 1.8 x10^3/uL (0.0-1.1) Eosinophils # (Auto) 0.0 x10^3/uL (0.0-0.7) Basophils # (Auto) 0.1 x10^3/uL (0.0-0.2) Sodium Level 136 mmol/L (136-145) Potassium Level 3.6 mmol/L (3.5-5.1) Chloride Level 103 mmol/L (98-107) Carbon Dioxide Level 31 mmol/L (21-32) Anion Gap 2 (6-14) Blood Urea Nitrogen 9 mg/dL (8-26) Creatinine 1.0 mg/dL (0.7-1.3) Estimated GFR (Cockcroft-Gault) 76.7 Glucose Level 96 mg/dL (70-99) Calcium Level 8.5 mg/dL (8.5-10.1) Problem List Problems Medical Problems: (1) Acute appendicitis Status: Acute Assessment/Plan continue abx D/W Dr Hill, plan repeat CT--if improvement then likely DC home interval VIVIAN Varela MD 08/12/18 9801: SURGICAL PROGRESS NOTE Assessment/Plan Pt seen and examined. Agree with Ms. Lopez's note Pt with only minimal pain abd soft, min TTP RLQ deep palpation CT and then d/c home on PO abx interval appendectomy BHAVIN LOPEZ BRANCH OPERATIONS COORDINATOR Aug 12, 2018 09:00 VIVIAN BRADLEY MD Aug 12, 2018 09:57
[2018-08-12] MEDS ORDERED: IOHEXOL 300 MG/ML 100ML VIAL. IV ONE ×2 (09:15→11:30)
[2018-08-12] MEDS ORDERED: IOHEXOL 240 MG/ML 50ML VIAL. PO ONE ×2 (09:15→11:30)
[2018-08-12] MEDS ORDERED: CONTRAST GIVEN. MC PRN (09:15)
--- NOTE | 2018-08-12 09:34 | PDOC ---
SUBJECTIVE Subjective S: since May his pain has not resolved completely, it was worsened with admission for acute appendicitis with neutropenia, significantly better on antibiotics, but still present, getting repeat CT today, back on blood thinners. Neutropenia resolved. O: Physical exam: Gen.: Well-nourished and well-developed, resting in bed Psychiatric: Pleasant mood and affect Labs: White count 17.2, hemoglobin 7.6, platelets 516 Procalc 0.54 Rads: Evidence of acute appendicitis and decreased effusion on chest x-ray at admission imaging Assessment and Plan: 1. 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 He was started on adjuvant chemotherapy with cisplatin and Navelbine in 06/2018, which has been complicated with persistent neutropenia requiring dose delays. Chemotherapy on hold for current admit. Admitted with colonic pseudoobstruction May 2018. 2. Neutropenic fever. Has resolved with antibiotics and G-CSF. 3. 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 He is on Eliquis. 4. Appendicitis. Appreciate Gen. surgery and ID assistance, treating conservatively during chemotherapy, getting repeat CT today for further reassessment, continuing on antibiotics, chemotherapy continues to be on hold. Disposition: He will follow-up with us after discharge. Thank you kindly, and please do not hesitate to call with further questions. OBJECTIVE Vital Signs Vital Signs Date Time Temp Pulse Resp B/P (MAP) Pulse Ox O2 Delivery O2 Flow Rate FiO2 08/12/18 07:00 97.6 76 16 125/57 (79) 94 Room Air 97.6 08/12/18 03:17 98.4 78 19 127/59 (81) 94 Room Air 98.4 08/11/18 23:00 97.8 79 18 145/62 (89) 97 Room Air 97.8 08/11/18 20:00 Room Air 08/11/18 19:00 98.5 84 18 131/53 (79) 99 Room Air 98.5 08/11/18 15:00 98.5 75 18 138/58 (84) 98 Room Air 98.5 08/11/18 11:00 98.5 78 18 129/56 (80) 98 Room Air 98.5 I & O Intake and Output 08/12/18 07:00 Intake Total 1500 ml Output Total 951 ml Balance 549 ml Intake Oral 1500 ml Output Urine Total 950 ml Stool Total 1 ml # Voids 4 COMMENT Lab Laboratory Tests Test 08/12/18 06:00 White Blood Count 17.2 x10^3/uL (4.0-11.0) Red Blood Count 2.84 x10^6/uL (4.30-5.70) Hemoglobin 7.6 g/dL (13.0-17.5) Hematocrit 23.0 % (39.0-53.0) Mean Corpuscular Volume 81 fL (79-100) Mean Corpuscular Hemoglobin 27 pg (25-35) Mean Corpuscular Hemoglobin Concent 33 g/dL (31-37) Red Cell Distribution Width 17.6 % (11.5-14.5) Platelet Count 516 x10^3/uL (140-400) Neutrophils (%) (Auto) 79 % (31-73) Lymphocytes (%) (Auto) 10 % (24-48) Monocytes (%) (Auto) 10 % (0-9) Eosinophils (%) (Auto) 0 % (0-3) Basophils (%) (Auto) 0 % (0-3) Neutrophils # (Auto) 13.5 x10^3uL (1.8-7.7) Lymphocytes # (Auto) 1.8 x10^3/uL (1.0-4.8) Monocytes # (Auto) 1.8 x10^3/uL (0.0-1.1) Eosinophils # (Auto) 0.0 x10^3/uL (0.0-0.7) Basophils # (Auto) 0.1 x10^3/uL (0.0-0.2) Sodium Level 136 mmol/L (136-145) Potassium Level 3.6 mmol/L (3.5-5.1) Chloride Level 103 mmol/L (98-107) Carbon Dioxide Level 31 mmol/L (21-32) Anion Gap 2 (6-14) Blood Urea Nitrogen 9 mg/dL (8-26) Creatinine 1.0 mg/dL (0.7-1.3) Estimated GFR (Cockcroft-Gault) 76.7 Glucose Level 96 mg/dL (70-99) Calcium Level 8.5 mg/dL (8.5-10.1) Nutrition Consultation Dietary Evaluation: Recommendations by RD: Increase Calorie Intake, Protein supplementation Comments: Encourage P.O. intake-honor food preferences, provide snacks on unit Rec. add Ensure TID for added protein and energy Expected Outcomes/Goals: P.O. intake to meet >75% estimated energy needs Interpretation of weight loss: >7.5% in 3 months Malnutrition Findings: Food and Nutrition Intake (Mod: <75% est energy req 7days Food and Nutrition Intake (Sev: <50% est energy req 5days Weight Status: Obese SHAYLA TANG MD Aug 12, 2018 09:34
[2018-08-12] MEDS: MICAFUNGIN 100 MG in IV DEXTROSE 5% 100ML 100 ML IV SCH (10:17)
[2018-08-12 10:23] LABS: % BANDS 24 % (0-9); % BASOS 1 % (0-3); % LYMPHS 10 % (24-48); % METAS 11 % (0-0); % MONOS 6 % (0-10); % SEGS 48 % (35-66); NUCLEATED RBC 2; PLT ESTIMATE INCREASED (ADEQUATE)
[2018-08-12 10:38] LABS: ANISOCYTOSIS MOD; POLYCHROMASIA SLIGHT
[2018-08-12 10:52] VITALS: BP 146/48
--- NOTE | 2018-08-12 11:55 | PDOC ---
PROGRESS NOTES Chief Complaint Chief Complaint Neutropenic fever with appendicitis History of Present Illness History of Present Illness The patient was seen sitting up in bed today. He states he has some tenderness in RLQ but it has improved. Plan for CT this afternoon. Possible DC if CT improved and Ok with ID. Plans for appendectomy after he has completed his chemotherapy in 3 months. Vitals Vitals Vital Signs Date Time Temp Pulse Resp B/P (MAP) Pulse Ox O2 Delivery O2 Flow Rate FiO2 08/12/18 10:52 98.0 72 18 146/48 (80) 97 Room Air 98.0 Physical Exam General: Alert, Oriented X3, Cooperative, No acute distress Heart: Regular rate, Normal S1, Normal S2, No murmurs Lungs: Clear (No wheezes, rales, or rhonci), Other Abdomen: Soft, No masses, Other (Mild tenderness in RLQ but improved.) Extremities: No edema, Normal pulses, No tenderness/swelling Skin: No rashes, No breakdown, No significant lesion Labs LABS Laboratory Tests Test 08/12/18 06:00 White Blood Count 17.2 x10^3/uL (4.0-11.0) Red Blood Count 2.84 x10^6/uL (4.30-5.70) Hemoglobin 7.6 g/dL (13.0-17.5) Hematocrit 23.0 % (39.0-53.0) Mean Corpuscular Volume 81 fL (79-100) Mean Corpuscular Hemoglobin 27 pg (25-35) Mean Corpuscular Hemoglobin Concent 33 g/dL (31-37) Red Cell Distribution Width 17.6 % (11.5-14.5) Platelet Count 516 x10^3/uL (140-400) Neutrophils (%) (Auto) 79 % (31-73) Lymphocytes (%) (Auto) 10 % (24-48) Monocytes (%) (Auto) 10 % (0-9) Eosinophils (%) (Auto) 0 % (0-3) Basophils (%) (Auto) 0 % (0-3) Neutrophils # (Auto) 13.5 x10^3uL (1.8-7.7) Lymphocytes # (Auto) 1.8 x10^3/uL (1.0-4.8) Monocytes # (Auto) 1.8 x10^3/uL (0.0-1.1) Eosinophils # (Auto) 0.0 x10^3/uL (0.0-0.7) Basophils # (Auto) 0.1 x10^3/uL (0.0-0.2) Segmented Neutrophils % 48 % (35-66) Band Neutrophils % 24 % (0-9) Lymphocytes % 10 % (24-48) Monocytes % 6 % (0-10) Basophils % 1 % (0-3) Metamyelocytes % 11 % (0-0) Nucleated Red Blood Cells 2 Platelet Estimate Increased (ADEQUATE) Polychromasia Slight Anisocytosis Mod Sodium Level 136 mmol/L (136-145) Potassium Level 3.6 mmol/L (3.5-5.1) Chloride Level 103 mmol/L (98-107) Carbon Dioxide Level 31 mmol/L (21-32) Anion Gap 2 (6-14) Blood Urea Nitrogen 9 mg/dL (8-26) Creatinine 1.0 mg/dL (0.7-1.3) Estimated GFR (Cockcroft-Gault) 76.7 Glucose Level 96 mg/dL (70-99) Calcium Level 8.5 mg/dL (8.5-10.1) Review of Systems Review of Systems Some mild RLQ tenderness. Patient denies fevers, chills, N/V, CP, SOB, diarrhea. Assessment and Plan Assessmemt and Plan Problems Medical Problems: (1) Acute appendicitis Status: Acute ASSESSMENT Fever Abdominal pain secondary to Acute Appendicitis Lung Cancer s/p lobectomy 05/22/18, currently on chemo, last chemo was 07/31, has 3 months remaining Leukopenia 2.2 -> 9.6 -> 14.7 -> 21.0 -> 17.2 Neutropenia 1.1 -> 6.9 -> 12,6 -> 17.8 -> 13.5 Hx of PE on oral AC PLAN no plans for surgery at this time, will wait until patient has completed chemotherapy Lap appendectomy in the future CT scan this afternoon IV Zosyn and micafungin, per ID ID, general surgery, and heme onc consults F/u labs Monitor wbc count and ANC Continue home meds PT/OT DVT prophylaxis Appreciate ID input Hope to DC today or tomorrow if CT shows improvement and OK with ID Comment Review of Relevant I have reviewed the following items florencio (where applicable) has been applied. Labs Laboratory Tests Test 08/11/18 06:10 08/12/18 06:00 White Blood Count 21.0 x10^3/uL (4.0-11.0) 17.2 x10^3/uL (4.0-11.0) Red Blood Count 2.96 x10^6/uL (4.30-5.70) 2.84 x10^6/uL (4.30-5.70) Hemoglobin 7.8 g/dL (13.0-17.5) 7.6 g/dL (13.0-17.5) Hematocrit 23.8 % (39.0-53.0) 23.0 % (39.0-53.0) Mean Corpuscular Volume 80 fL (79-100) 81 fL (79-100) Mean Corpuscular Hemoglobin 26 pg (25-35) 27 pg (25-35) Mean Corpuscular Hemoglobin Concent 33 g/dL (31-37) 33 g/dL (31-37) Red Cell Distribution Width 16.9 % (11.5-14.5) 17.6 % (11.5-14.5) Platelet Count 559 x10^3/uL (140-400) 516 x10^3/uL (140-400) Neutrophils (%) (Auto) 85 % (31-73) 79 % (31-73) Lymphocytes (%) (Auto) 8 % (24-48) 10 % (24-48) Monocytes (%) (Auto) 7 % (0-9) 10 % (0-9) Eosinophils (%) (Auto) 0 % (0-3) 0 % (0-3) Basophils (%) (Auto) 0 % (0-3) 0 % (0-3) Neutrophils # (Auto) 17.8 x10^3uL (1.8-7.7) 13.5 x10^3uL (1.8-7.7) Lymphocytes # (Auto) 1.7 x10^3/uL (1.0-4.8) 1.8 x10^3/uL (1.0-4.8) Monocytes # (Auto) 1.4 x10^3/uL (0.0-1.1) 1.8 x10^3/uL (0.0-1.1) Eosinophils # (Auto) 0.0 x10^3/uL (0.0-0.7) 0.0 x10^3/uL (0.0-0.7) Basophils # (Auto) 0.1 x10^3/uL (0.0-0.2) 0.1 x10^3/uL (0.0-0.2) Sodium Level 139 mmol/L (136-145) 136 mmol/L (136-145) Potassium Level 3.7 mmol/L (3.5-5.1) 3.6 mmol/L (3.5-5.1) Chloride Level 104 mmol/L (98-107) 103 mmol/L (98-107) Carbon Dioxide Level 30 mmol/L (21-32) 31 mmol/L (21-32) Anion Gap 5 (6-14) 2 (6-14) Blood Urea Nitrogen 10 mg/dL (8-26) 9 mg/dL (8-26) Creatinine 1.1 mg/dL (0.7-1.3) 1.0 mg/dL (0.7-1.3) Estimated GFR (Cockcroft-Gault) 68.8 76.7 Glucose Level 101 mg/dL (70-99) 96 mg/dL (70-99) Calcium Level 8.4 mg/dL (8.5-10.1) 8.5 mg/dL (8.5-10.1) Segmented Neutrophils % 48 % (35-66) Band Neutrophils % 24 % (0-9) Lymphocytes % 10 % (24-48) Monocytes % 6 % (0-10) Basophils % 1 % (0-3) Metamyelocytes % 11 % (0-0) Nucleated Red Blood Cells 2 Platelet Estimate Increased (ADEQUATE) Polychromasia Slight Anisocytosis Mod Laboratory Tests Test 08/12/18 06:00 White Blood Count 17.2 x10^3/uL (4.0-11.0) Red Blood Count 2.84 x10^6/uL (4.30-5.70) Hemoglobin 7.6 g/dL (13.0-17.5) Hematocrit 23.0 % (39.0-53.0) Mean Corpuscular Volume 81 fL (79-100) Mean Corpuscular Hemoglobin 27 pg (25-35) Mean Corpuscular Hemoglobin Concent 33 g/dL (31-37) Red Cell Distribution Width 17.6 % (11.5-14.5) Platelet Count 516 x10^3/uL (140-400) Neutrophils (%) (Auto) 79 % (31-73) Lymphocytes (%) (Auto) 10 % (24-48) Monocytes (%) (Auto) 10 % (0-9) Eosinophils (%) (Auto) 0 % (0-3) Basophils (%) (Auto) 0 % (0-3) Neutrophils # (Auto) 13.5 x10^3uL (1.8-7.7) Lymphocytes # (Auto) 1.8 x10^3/uL (1.0-4.8) Monocytes # (Auto) 1.8 x10^3/uL (0.0-1.1) Eosinophils # (Auto) 0.0 x10^3/uL (0.0-0.7) Basophils # (Auto) 0.1 x10^3/uL (0.0-0.2) Segmented Neutrophils % 48 % (35-66) Band Neutrophils % 24 % (0-9) Lymphocytes % 10 % (24-48) Monocytes % 6 % (0-10) Basophils % 1 % (0-3) Metamyelocytes % 11 % (0-0) Nucleated Red Blood Cells 2 Platelet Estimate Increased (ADEQUATE) Polychromasia Slight Anisocytosis Mod Sodium Level 136 mmol/L (136-145) Potassium Level 3.6 mmol/L (3.5-5.1) Chloride Level 103 mmol/L (98-107) Carbon Dioxide Level 31 mmol/L (21-32) Anion Gap 2 (6-14) Blood Urea Nitrogen 9 mg/dL (8-26) Creatinine 1.0 mg/dL (0.7-1.3) Estimated GFR (Cockcroft-Gault) 76.7 Glucose Level 96 mg/dL (70-99) Calcium Level 8.5 mg/dL (8.5-10.1) Microbiology 08/07/18 Blood Culture - Preliminary, Resulted NO GROWTH AFTER 4 DAYS Medications Current Medications Sodium Chloride 1,000 ml @ 1,000 mls/hr 1X ONCE IV Last administered on 08/07/18at 20:11; Start 08/07/18 at 19:45; Stop 08/07/18 at 20:44; Status DC Acetaminophen (Tylenol) 650 mg 1X ONCE PO Last administered on 08/07/18at 20:14; Start 08/07/18 at 19:45; Stop 08/07/18 at 19:49; Status DC Cefepime HCl (Maxipime) 2 gm 1X ONCE IVP Last administered on 08/07/18at 21:08; Start 08/07/18 at 20:30; Stop 08/07/18 at 20:31; Status DC Sodium Chloride 1,000 ml @ 1,000 mls/hr 1X ONCE IV Last administered on 08/07/18at 21:54; Start 08/07/18 at 20:30; Stop 08/07/18 at 21:29; Status DC Iohexol (Omnipaque 300 Mg/ml) 60 ml 1X ONCE IV Last administered on 08/07/18at 20:51; Start 08/07/18 at 20:45; Stop 08/07/18 at 20:46; Status DC Info (CONTRAST GIVEN -- Rx MONITORING) 1 each PRN DAILY PRN MC SEE COMMENTS; Start 08/07/18 at 20:45; Stop 08/09/18 at 20:44; Status DC Sodium Chloride 1,000 ml @ 100 mls/hr Q10H IV Last administered on 08/08/18at 01:18; Start 08/07/18 at 23:00; Stop 08/08/18 at 22:59; Status DC Acetaminophen (Tylenol) 650 mg PRN Q4HRS PRN PO FEVER Last administered on 08/08/18at 15:26; Start 08/07/18 at 23:00; Stop 08/08/18 at 22:59; Status DC Cefepime HCl (Maxipime) 2 gm Q8HRS IVP Last administered on 08/09/18at 06:24; Start 08/08/18 at 06:00; Stop 08/09/18 at 09:14; Status DC Morphine Sulfate (Morphine Sulfate) 4 mg PRN Q3HRS PRN IV PAIN; Start 08/08/18 at 00:00 Ondansetron HCl (Zofran) 4 mg PRN Q6HRS PRN IV NAUSEA/VOMITING; Start 08/08/18 at 00:00 Tbo-Filgrastim (Granix) 480 mcg QHS SQ Last administered on 08/08/18 09:30; Start 08/08/18 at 07:45; Stop 08/09/18 at 07:22; Status DC Metronidazole 100 ml @ 100 mls/hr Q12HR IV Last administered on 08/09/18at 08:32; Start 08/08/18 at 10:00; Stop 08/09/18 at 09:14; Status DC Multi-Ingredient Mouthwash/Gargle (Magic Mouthwash) 10 ml PRN QID PRN PO MOUTH PAIN; Start 08/08/18 at 10:15 Apixaban (Eliquis) 5 mg BID PO Last administered on 08/12/18 08:59; Start 08/08/18 at 10:30 Info (Anti-Coagulation Monitoring By Pharmacy) 1 each PRN DAILY PRN MC SEE COMMENTS Last administered on 08/08/18at 14:22; Start 08/08/18 at 10:30 Piperacillin Sod/ Tazobactam Sod 3.375 gm/Sodium Chloride 50 ml @ 100 mls/hr Q6HRS IV Last administered on 08/12/18at 06:01; Start 08/09/18 at 12:00 Micafungin Sodium 100 mg/Dextrose 100 ml @ 100 mls/hr Q24H IV Last administered on 08/12/18at 10:17; Start 08/09/18 at 10:00 Allopurinol (Zyloprim) 100 mg BID PO Last administered on 08/12/18 08:59; Start 08/10/18 at 21:00 Iohexol (Omnipaque 240 Mg/ml) 30 ml 1X ONCE PO ; Start 08/12/18 at 09:15; Stop 08/12/18 at 09:16; Status DC Iohexol (Omnipaque 300 Mg/ml) 75 ml 1X ONCE IV ; Start 08/12/18 at 09:15; Stop 08/12/18 at 09:16; Status DC Info (CONTRAST GIVEN -- Rx MONITORING) 1 each PRN DAILY PRN MC SEE COMMENTS; Start 08/12/18 at 09:15; Stop 08/14/18 at 09:14 Iohexol (Omnipaque 240 Mg/ml) 50 ml 1X ONCE PO ; Start 08/12/18 at 11:30; Stop 08/12/18 at 11:35; Status DC Iohexol (Omnipaque 300 Mg/ml) 75 ml 1X ONCE IV ; Start 08/12/18 at 11:30; Stop 08/12/18 at 11:35; Status DC Active Scripts Active Reported Eliquis (Apixaban) 5 Mg Tablet 5 Mg PO BID resume sunday07/03/18 Amlodipine Besylate 10 Mg Tablet 10 Mg PO DAILY Allopurinol 100 Mg Tablet 100 Mg PO BID Vitals/I & O Vital Sign - Last 24 Hours 08/11/18 08/11/18 08/11/18 08/11/18 15:00 19:00 20:00 23:00 Temp 98.5 98.5 97.8 98.5 98.5 97.8 Pulse 75 84 79 Resp 18 18 18 B/P (MAP) 138/58 (84) 131/53 (79) 145/62 (89) Pulse Ox 98 99 97 O2 Delivery Room Air Room Air Room Air Room Air 08/12/18 08/12/18 08/12/18 03:17 07:00 10:52 Temp 98.4 97.6 98.0 98.4 97.6 98.0 Pulse 78 76 72 Resp 19 16 18 B/P (MAP) 127/59 (81) 125/57 (79) 146/48 (80) Pulse Ox 94 94 97 O2 Delivery Room Air Room Air Room Air Intake and Output 08/11/18 08/11/18 08/12/18 14:59 22:59 06:59 Intake Total 1400 ml 100 ml Output Total 350 ml 601 ml Balance -350 ml 1400 ml -501 ml Nutrition Consultation Dietary Evaluation: Recommendations by RD: Increase Calorie Intake, Protein supplementation Comments: Encourage P.O. intake-honor food preferences, provide snacks on unit Rec. add Ensure TID for added protein and energy Expected Outcomes/Goals: P.O. intake to meet >75% estimated energy needs Interpretation of weight loss: >7.5% in 3 months Malnutrition Findings: Food and Nutrition Intake (Mod: <75% est energy req 7days Food and Nutrition Intake (Sev: <50% est energy req 5days Weight Status: Obese LARRY OLIVEIRA III DO Aug 12, 2018 11:55
[2018-08-12 14:53] VITALS: BP 159/69
--- NOTE | 2018-08-12 16:21 | RAD ---
Examination: CT ABD PELV W/ORAL IV CONTRAST History: f/u appendicitis in immunosuppressed
IV OMNI 300 75 MLS AND OMNI 240 30 MLS Comparison/Correlation: 08/07/2018 CT abdomen and pelvis with IV contrast, 05/29/2018 CT abdomen and pelvis without contrast Findings: Axial images of the abdomen and pelvis were obtained following oral contrast. Sagittal and coronal reformatted images provided. Catheter tubing at the superior cavoatrial junction is partially seen. Moderate-sized left basilar pleural effusion is present. Minimal right pleural effusion is present. There is a small hiatal hernia and Liver, spleen, pancreas, adrenal glands, and kidneys are unremarkable. Moderate quantity of stool in the colon noted. Inflammatory changes about the mildly distended appendix noted. No loculated collection. No extraluminal gas or bowel obstruction. Right proximal femoral intramedullary bon is present. Significant disc space narrowing at L4-5 is present with endplate sclerosis. Moderate L3-4 disc space narrowing is present. Impression: Moderate decrease in inflammation about the appendix is present. Decreased distention of the appendix is noted. No abscess development in the interval. Slight increase in moderate-sized left basilar pleural effusion. Small hiatal hernia. PQRS Compliance Statement: One or more of the following individualized dose reduction techniques were utilized for this examination: 1. Automated exposure control 2. Adjustment of the mA and/or kV according to patient size 3. Use of iterative reconstruction technique Electronically signed by: Abdoul Lorenz MD (08/12/2018 4:18 PM) [facility]
[2018-08-12] MEDS ORDERED: HEPARIN for SUB-Q USE 5,000 UNIT/ML VIAL. SQ ONE (16:28)
[2018-08-12] MEDS ORDERED: HEPARIN PF 500 UNIT/5 ML DISP.SYRIN. IV ONE (16:30)
--- NOTE | 2018-08-12 17:14 | NUR ---
Discharge instructions and belongings reviewed with patient verbalized understanding. Rx called in to Pharmacy in [facility]. Patient was escorted out of hospital via ambulation by Luz Maria NAYAK/RN student accompanied by his .
== END 2018-08-12 17:15 | disposition home or self-care (01) | DRG 394 ==
LOC: ER 19:25 → 4 NORTH 23:00
PROVIDERS: ADMIT Internal Medicine; ATTEND Internal Medicine
DX: K35.80 Unspecified acute appendicitis (principal); N17.9 Acute kidney failure, unspecified; C18.1 Malignant neoplasm of appendix; C34.12 Malignant neoplasm of upper lobe, left bronchus or lung; J90 Pleural effusion, not elsewhere classified; J98.11 Atelectasis; D64.9 Anemia, unspecified; D70.1 Agranulocytosis secondary to cancer chemotherapy; E78.5 Hyperlipidemia, unspecified; F17.210 Nicotine dependence, cigarettes, uncomplicated; I10 Essential (primary) hypertension; K12.30 Oral mucositis (ulcerative), unspecified; R50.81 Fever presenting with conditions classified elsewhere; T45.1X5A Adverse effect of antineoplastic and immunosuppressive drugs, initial encounter; Z80.0 Family history of malignant neoplasm of digestive organs; Z79.01 Long term (current) use of anticoagulants; Z80.42 Family history of malignant neoplasm of prostate; Z85.118 Personal history of other malignant neoplasm of bronchus and lung; Z86.010 Personal history of colon polyps; Z86.711 Personal history of pulmonary embolism; Z86.718 Personal history of other venous thrombosis and embolism; Z90.2 Acquired absence of lung [part of]; E66.9 Obesity, unspecified; M10.9 Gout, unspecified
CPT/HCPCS: 36415; 71045; 74177; 80048; 80053; 81001; 83605; 83690; 83880; 84145; 84484; 85007; 85025; 87040; 87804; 93005; 96361; 96374; J0692; J1442; J2248; J2543; J3490; J7030; Q9966; Q9967; 99285-25

== ENCOUNTER → 2018-09-11 | Outpatient (CLI) | payer BC ==
[2018-08-12 14:53] VITALS: BP 159/69
--- NOTE | 2018-09-11 12:08 | RAD ---
CT CHEST WO CONTRAST Indication: Pleural effusion, lung cancer, left lobectomy Technique: Noncontrast CT imaging was performed of the chest, multiplanar reconstruction images submitted. One or more of the following individualized dose reduction techniques were utilized for this examination: 1. Automated exposure control 2. Adjustment of the mA and/or kV according to patient size 3. Use of iterative reconstruction technique. Comparison: 06/03/2018 Findings: There are again postoperative changes of the left hemithorax of left upper lobectomy. There is persistent small left pleural effusion, again seen tracking somewhat anteriorly at the left lung base in subpulmonic region and also seen more anteriorly of the superior left hemithorax. Overall quantity of pleural fluid has decreased more superiorly although quantity in the subpulmonic region somewhat greater. There is persistent small left pneumothorax although overall smaller, largest component seen more superiorly. There has been resolution of previously seen infiltrate of the left lower lobe. There is no new right pleural effusion, infiltrate, pneumothorax. Previously seen small right pleural effusion has resolved in interval. No new suspicious pulmonary nodularity is identified. There is what likely results component of mild dependent atelectasis of the right lower lobe, linear morphology. There are again some small mediastinal and hilar nodes, no new significantly enlarged nodes identified. Defect of left posterior sixth rib is likely on postsurgical basis. There is right internal jugular port catheter. IMPRESSION: 1. Comparing with 06/03/2018 exam, there is persistent small left hydropneumothorax. Overall quantity of pleural fluid on the left is probably unchanged allowing for changes in location, decreased superiorly although somewhat increased in the subpulmonic region. Some pleural fluid again is located more anteriorly such as of the superior left hemithorax and also tracking more anteriorly in the subpulmonic region. Size of the pneumothorax has decreased. There is significant improved aeration of the left lung parenchyma with resolution of previously seen infiltrate. There is no new suspicious pulmonary nodularity or significant chest lymphadenopathy. 2. Previously seen small right pleural effusion has resolved. Electronically signed by: Shabbir Cintron MD (09/11/2018 12:05 PM) [id number]
== END | disposition home or self-care (01) ==
LOC: CT 11:27
PROVIDERS: ATTEND Internal Medicine Critical Care Medicine
DX: J90 Pleural effusion, not elsewhere classified (principal); J94.8 Other specified pleural conditions; J93.83 Other pneumothorax; Z85.118 Personal history of other malignant neoplasm of bronchus and lung; Z90.2 Acquired absence of lung [part of]
CPT/HCPCS: 71250

== ENCOUNTER 2018-10-02 06:44 | Inpatient (IN) | payer BC ==
[~2018-10-02] VITALS: Ht 190.5 cm; Wt 117.9 kg
[2018-10-02] MEDS ORDERED: IV NORMAL SALINE 1000ML BAG 1,000 ML IV SCH (07:08)
[2018-10-02] MEDS ORDERED: ONDANSETRON PF 4 MG/2 ML VIAL. IV ONE (07:15)
[2018-10-02] MEDS ORDERED: MORPHINE SULFATE 4 MG/ML VIAL. IV ONE (07:15)
[2018-10-02 07:50] LABS: BASO % 1 % (0-3); EOS % 0 % (0-3); HEMATOCRIT 24.8 % (39.0-53.0); HEMOGLOBIN 8.4 g/dL (13.0-17.5); LYMPH # 0.8 x10^3/uL (1.0-4.8); LYMPH % 9 % (24-48); MEAN CORPUSCULAR HEMOGLOBIN 29 pg (25-35); MEAN CORPUSCULAR HGB CONC 34 g/dL (31-37); MEAN CORPUSCULAR VOLUME 86 fL (79-100); MONO # 0.7 x10^3/uL (0.0-1.1); MONO % 8 % (0-9); NEUT # 7.3 x10^3uL (1.8-7.7); NEUT % 82 % (31-73); PLATELET COUNT 290 x10^3/uL (140-400); RED BLOOD COUNT 2.89 x10^6/uL (4.30-5.70); RED CELL DISTRIBUTION WIDTH 20.3 % (11.5-14.5); WHITE BLOOD COUNT 8.9 x10^3/uL (4.0-11.0)
[2018-10-02] MEDS ORDERED: CONTRAST GIVEN. MC PRN (08:00)
[2018-10-02] MEDS ORDERED: IOHEXOL 300 MG/ML 100ML VIAL. IV ONE ×2 (08:00)
[2018-10-02 08:04] LABS: ALBUMIN 2.8 g/dL (3.4-5.0); ALBUMIN/GLOBULIN RATIO 0.8 (1.0-1.7); CALCIUM 9.1 mg/dL (8.5-10.1); GFR 76.7; TOTAL BILIRUBIN 0.3 mg/dL (0.2-1.0); TOTAL PROTEIN 6.5 g/dL (6.4-8.2)
[2018-10-02 08:20] LABS: POTASSIUM 4.4 mmol/L (3.5-5.1)
--- NOTE | 2018-10-02 09:06 | RAD ---
EXAM: CT Abdomen and Pelvis with IV contrast CLINICAL HISTORY: Right lower quadrant pain. COMPARISON: none TECHNIQUE: Helical CT of the abdomen and pelvis was performed following the administration of intravenous contrast. Axial, coronal and sagittal reformatted images were generated. PQRS compliance statement - One or more of the following individualized dose reduction techniques were utilized for this study: 1. Automated exposure control 2. Adjustment of the mA and/or kV according to patient size 3. Use of iterative reconstruction technique FINDINGS: Lower chest: Small left pleural effusion. Subpleural linear reticular opacities in the lower lobe and middle lobe likely scarring/atelectasis. Trace hiatal hernia. Abdomen and Pelvis: No focal liver lesion. Gallbladder is normal. No biliary ductal dilatation. Spleen is unremarkable. Adrenal glands and pancreas are unremarkable. Symmetric nephrograms. No focal renal lesion. No hydronephrosis. The appendix is thickened measuring up to 12 mm in thickness with diffuse inflammatory change about the appendix consistent with acute appendicitis. The associated inflammatory changes extend to the level of the terminal ileum, likely reactive wall thickening. These findings were seen on prior CT 08/12/2018 however the associated inflammatory changes in the right lower quadrant and appendiceal distention has mildly increased. No small or large bowel dilatation. Moderate colonic stool content. Atherosclerotic calcifications of the aorta are seen. Bones: IM nail fixation of the right femur is seen. Degenerative changes of the spine are noted. IMPRESSION: 1. Interval increase in appendiceal thickening and periappendiceal fat infiltration consistent with acute appendicitis. No free or loculated fluid is seen to suggest abscess development. No free intraperitoneal gas. 2. Small left pleural effusion. Findings of acute appendicitis, progressed compared to 08/12/[address] Yun at 9:00 AM 10/02/2018. She also noted the patient also was on chemotherapy. Given this history, neutropenic enterocolitis/typhlitis is also within the differential given the terminal ileal involvement. However as the inflammatory changes are predominantly centered about the appendix, appendicitis is favored. Electronically signed by: Dennis Bowen MD (10/02/2018 9:03 AM) [id number]
[2018-10-02 09:17] LABS: BILIRUBIN,URINE NEGATIVE (NEG); CLARITY,URINE CLEAR; COLOR,URINE YELLOW; NITRITE,URINE NEGATIVE (NEG); PH,URINE 6.5; PROTEIN,URINE NEGATIVE (NEG-TRACE); UROBILINOGEN,URINE 0.2 mg/dL (0.2 mg/dL)
--- NOTE | 2018-10-02 09:24 | PDOC1 ---
History and Physical Date of Admission Date of Admission DATE: 10/02/18 TIME: 09:23 Identification/Chief Complaint Chief Complaint RLQ abdominal pain Source Source: Patient History of Present Illness History of Present Illness Mr Gavin is a 58yo m w/ PMHx 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 He was initially diagnosed by biopsy on 04/04/2018 with lung cancer. He was started on adjuvant chemotherapy with cisplatin and vinorelbine in 06/2018. He has required recurrent dose delays due to neutropenia with cycle #1 and has also had a bout of appendicitis previously managed medically with antibiotics. In ED noted with tender periumbilical area radiating to RLQ and to right flank, which is new for him. He was due for chemotherapy today. He has associated nausea and notably has subjective fever and chills. Anemic on CBC, no leukocytosis. General surgery consulted from ED upon CT findings consistent with appendicitis Past Medical History Cardiovascular: HTN Pulmonary: Pulmonary embolus, Other GI: No pertinent hx Heme/Onc: No pertinent hx Hepatobiliary: No pertinent hx Psych: No pertinent hx Rheumatologic: No pertinent hx Infectious disease: No pertinent hx Renal/: No pertinent hx Endocrine: No pertinent hx Past Surgical History Past Surgical History: Other Family History Family History: No Significant Social History Smoke: No ALCOHOL: none Drugs: None Current Medications Current Medications Current Medications Sodium Chloride 1,000 ml @ 1,000 mls/hr Q1H IV Last administered on 10/02/18at 07:51; Start 10/02/18 at 07:08; Stop 10/02/18 at 08:07; Status DC Ondansetron HCl (Zofran) 4 mg 1X ONCE IV ; Start 10/02/18 at 07:15; Stop 10/02/18 at 07:16; Status DC Morphine Sulfate (Morphine Sulfate) 4 mg 1X ONCE IV ; Start 10/02/18 at 07:15; Stop 10/02/18 at 07:16; Status DC Iohexol (Omnipaque 300 Mg/ml) 60 ml 1X ONCE IV ; Start 10/02/18 at 08:00; Stop 10/02/18 at 08:01; Status DC Iohexol (Omnipaque 300 Mg/ml) 75 ml 1X ONCE IV Last administered on 10/02/18at 08:40; Start 10/02/18 at 08:00; Stop 10/02/18 at 08:01; Status DC Info (CONTRAST GIVEN -- Rx MONITORING) 1 each PRN DAILY PRN MC SEE COMMENTS; Start 10/02/18 at 08:00; Stop 10/04/18 at 07:59 Piperacillin Sod/ Tazobactam Sod 3.375 gm/Sodium Chloride 50 ml @ 100 mls/hr 1X ONCE IV ; Start 10/02/18 at 10:00; Stop 10/02/18 at 10:29 Metronidazole 100 ml @ 100 mls/hr 1X ONCE IV ; Start 10/02/18 at 10:00; Stop 10/02/18 at 10:59 Active Scripts Active Reported Eliquis (Apixaban) 5 Mg Tablet 5 Mg PO BID resume sunday07/03/18 Amlodipine Besylate 10 Mg Tablet 10 Mg PO DAILY Allopurinol 100 Mg Tablet 100 Mg PO BID Allergies Allergies: Coded Allergies: No Known Medication Allergies (Verified Allergy, Unknown, 10/02/18) fentanyl (Verified Adverse Reaction, Intermediate, 08/08/18) Respiratory depression. ROS General: YES: Fatigue, Malaise; No: Chills, Night Sweats, Appetite, Other PSYCHOLOGICAL ROS: No: Anxiety, Behavioral Disorder, Concentration difficultie, Decreased libido, Depression, Disorientation, Hallucinations, Hostility, Irritab lity, Memory difficulties, Mood Swings, Obsessive thoughts, Physical abuse, Sexual abuse, Sleep disturbances, Suicidal ideation, Other Eyes: No Blurry vision, No Decreased vision, No Double vision, No Dry eyes, No Excessive tearing, No Eye Pain, No Itchy Eyes, No Loss of vision, No Photophobia, No Scotomata, No Uses contacts, No Uses glasses, No Other HEENT: No: Heacaches, Visual Changes, Hearing change, Nasal congestion, Nasal discharge, Oral lesions, Sinus pain, Sore Throat, Epistaxis, Sneezing, Snoring, Tinnitus, Vertigo, Vocal changes, Other ALLERGY AND IMMUNOLOGY: No: Hives, Insect Bite Sensitivity, Itchy/Watery Eyes, Nasal Congestion, Post Nasal Drip, Seasonal Allergies, Other Hematological and Lymphatic: No: Bleeding Problems, Blood Clots, Blood Transfusions, Brusing, Night Sweats, Pallor, Swollen Lymph Nodes, Other ENDOCRINE: No: Breast Changes, Galactorrhea, Hair Pattern Changes, Hot Flashes, Malaise/lethargy, Mood Swings, Palpitations, Polydipsia/polyuria, Skin Changes, Temperature Intolerance, Unexpected Weight Changes, Other Breast: No New/Changing Breast Lumps, No Nipple changes, No Nipple discharge, No Other Respiratory: No: Cough, Hemoptysis, Orthopnea, Pleuritic Pain, Shortness of breath, SOB with excertion, Sputum Changes, Stridor, Tachypnea, Wheezing, Other Cardiovascular: No Chest Pain, No Palpitations, No Orthopnea, No Paroxysmal Noc. Dyspnea, No Edema, No Lt Headedness, No Other Gastrointestinal: Yes Nausea, Yes Abdominal Pain; No Vomiting, No Diarrhea, No Constipation, No Melena, No Hematochezia, No Oth er Genitourinary: No Dysuria, No Frequency, No Incontinence, No Hematuria, No Retention, No Discharge, No Urgency, No Pain, No Flank Pain, No Other, No , No , No , No , No , No , No Musculoskeletal: No Gait Disturbance, No Joint Pain, No Joint Stiffness, No Joint Swelling, No Muscle Pain, No Muscular Weakness, No Pain In:, No Swelling In:, No Other Neurological: No Behavorial Changes, No Bowel/Bladder ControlChng, No Confusion, No Dizziness, No Gait Disturbance, No Headaches, No Impaired Coord/balance, No Memory Loss, No Numbness/Tingling, No Seizures, No Speech Prob lems, No Tremors, No Visual Changes, No Weakness, No Other Skin: No Dry Skin, No Eczema, No Hair Changes, No Lumps, No Mole Changes, No Mottling, No Nail Changes, No Pruritus, No Rash, No Skin Lesion Changes, No Other, No Acne Physical Exam General: Alert, Oriented X3, Cooperative, No acute distress HEENT: Atraumatic, PERRLA, EOMI, Mucous membr. moist/pink Lungs: Clear to auscultation, Normal air movement Heart: S1S2, RRR Abdomen: Normal bowel sounds, Soft, No hepatosplenomegaly, No masses, Other (RLQ tender) Extremities: No clubbing, No cyanosis, No edema, Normal pulses, No tenderness/swelling Skin: No rashes, No breakdown, No significant lesion Neuro: Normal gait, Normal speech, Strength at 5/5 X4 ext, Normal tone, Sensation intact, Cranial nerves 3-12 NL, Reflexes 2+ Psych/Mental Status: Mental status NL, Mood NL Vitals Vitals Vital Signs Date Time Temp Pulse Resp B/P (MAP) Pulse Ox O2 Delivery O2 Flow Rate FiO2 10/02/18 08:47 72 18 195/70 (111) 97 Room Air 10/02/18 06:55 99.2 99.2 Labs Labs Laboratory Tests Test 10/02/18 07:30 10/02/18 07:35 Sodium Level 136 mmol/L (136-145) Potassium Level 4.4 mmol/L (3.5-5.1) Chloride Level 99 mmol/L (98-107) Carbon Dioxide Level 27 mmol/L (21-32) Anion Gap 10 (6-14) Blood Urea Nitrogen 14 mg/dL (8-26) Creatinine 1.0 mg/dL (0.7-1.3) Estimated GFR (Cockcroft-Gault) 76.7 BUN/Creatinine Ratio 14 (6-20) Glucose Level 105 mg/dL (70-99) Lactic Acid Level 1.9 mmol/L (0.4-2.0) Calcium Level 9.1 mg/dL (8.5-10.1) Total Bilirubin 0.3 mg/dL (0.2-1.0) Aspartate Amino Transf (AST/SGOT) 13 U/L (15-37) Alanine Aminotransferase (ALT/SGPT) 18 U/L (16-63) Alkaline Phosphatase 56 U/L (46-116) Total Protein 6.5 g/dL (6.4-8.2) Albumin 2.8 g/dL (3.4-5.0) Albumin/Globulin Ratio 0.8 (1.0-1.7) Lipase 77 U/L (73-393) White Blood Count 8.9 x10^3/uL (4.0-11.0) Red Blood Count 2.89 x10^6/uL (4.30-5.70) Hemoglobin 8.4 g/dL (13.0-17.5) Hematocrit 24.8 % (39.0-53.0) Mean Corpuscular Volume 86 fL (79-100) Mean Corpuscular Hemoglobin 29 pg (25-35) Mean Corpuscular Hemoglobin Concent 34 g/dL (31-37) Red Cell Distribution Width 20.3 % (11.5-14.5) Platelet Count 290 x10^3/uL (140-400) Neutrophils (%) (Auto) 82 % (31-73) Lymphocytes (%) (Auto) 9 % (24-48) Monocytes (%) (Auto) 8 % (0-9) Eosinophils (%) (Auto) 0 % (0-3) Basophils (%) (Auto) 1 % (0-3) Neutrophils # (Auto) 7.3 x10^3uL (1.8-7.7) Lymphocytes # (Auto) 0.8 x10^3/uL (1.0-4.8) Monocytes # (Auto) 0.7 x10^3/uL (0.0-1.1) Eosinophils # (Auto) 0.0 x10^3/uL (0.0-0.7) Basophils # (Auto) 0.0 x10^3/uL (0.0-0.2) Laboratory Tests Test 10/02/18 07:30 10/02/18 07:35 Sodium Level 136 mmol/L (136-145) Potassium Level 4.4 mmol/L (3.5-5.1) Chloride Level 99 mmol/L (98-107) Carbon Dioxide Level 27 mmol/L (21-32) Anion Gap 10 (6-14) Blood Urea Nitrogen 14 mg/dL (8-26) Creatinine 1.0 mg/dL (0.7-1.3) Estimated GFR (Cockcroft-Gault) 76.7 BUN/Creatinine Ratio 14 (6-20) Glucose Level 105 mg/dL (70-99) Lactic Acid Level 1.9 mmol/L (0.4-2.0) Calcium Level 9.1 mg/dL (8.5-10.1) Total Bilirubin 0.3 mg/dL (0.2-1.0) Aspartate Amino Transf (AST/SGOT) 13 U/L (15-37) Alanine Aminotransferase (ALT/SGPT) 18 U/L (16-63) Alkaline Phosphatase 56 U/L (46-116) Total Protein 6.5 g/dL (6.4-8.2) Albumin 2.8 g/dL (3.4-5.0) Albumin/Globulin Ratio 0.8 (1.0-1.7) Lipase 77 U/L (73-393) White Blood Count 8.9 x10^3/uL (4.0-11.0) Red Blood Count 2.89 x10^6/uL (4.30-5.70) Hemoglobin 8.4 g/dL (13.0-17.5) Hematocrit 24.8 % (39.0-53.0) Mean Corpuscular Volume 86 fL (79-100) Mean Corpuscular Hemoglobin 29 pg (25-35) Mean Corpuscular Hemoglobin Concent 34 g/dL (31-37) Red Cell Distribution Width 20.3 % (11.5-14.5) Platelet Count 290 x10^3/uL (140-400) Neutrophils (%) (Auto) 82 % (31-73) Lymphocytes (%) (Auto) 9 % (24-48) Monocytes (%) (Auto) 8 % (0-9) Eosinophils (%) (Auto) 0 % (0-3) Basophils (%) (Auto) 1 % (0-3) Neutrophils # (Auto) 7.3 x10^3uL (1.8-7.7) Lymphocytes # (Auto) 0.8 x10^3/uL (1.0-4.8) Monocytes # (Auto) 0.7 x10^3/uL (0.0-1.1) Eosinophils # (Auto) 0.0 x10^3/uL (0.0-0.7) Basophils # (Auto) 0.0 x10^3/uL (0.0-0.2) Images Images CT abdomen - 1. Interval increase in appendiceal thickening and periappendiceal fat infiltration consistent with acute appendicitis. No free or loculated fluid is seen to suggest abscess development. No free intraperitoneal gas. 2. Small left pleural effusion. VTE Prophylaxis Ordered VTE Prophylaxis Devices: Yes VTE Pharmacological Prophylaxi: Yes Assessment/Plan Assessment/Plan A/P: Acute appendicitis - will cont zosyn for coverage. Consult general surgery. Difficult to say whether he needs surgery, will consult Oncology as well. Radiology noted typhilitis in differential, his WBC is too high Anemia - looks normocytic, not on bone marrow stimulating agents, likely 2/2 chemo Pulmonary embolism - can hold eliquis in anticipation of surgery, will give he margie Adenocarcinoma of Lung - f/u with oncology HTN - cont home meds FEN - NPO until surgery eval PPX - eliquis, will change to LMWH FULL CODE Inpatient for acute appendicitis MICHAEL TRUONG MD Oct 02, 2018 09:24
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
[2018-10-02 09:32] LABS: BACTERIA,URINE 0 /HPF (0-FEW); RBC,URINE OCC /HPF (0-2); SQUAMOUS EPITHELIAL CELL,UR OCC /LPF; WBC,URINE OCC /HPF (0-4)
[2018-10-02 10:00] LABS: PLT ESTIMATE ADEQUATE (ADEQUATE)
[2018-10-02] MEDS ORDERED: PIPERACILLIN/TAZOBACTAM 3.375 GM in IV NORMAL SALINE 50ML 50 ML IV ONE (10:00)
[2018-10-02 10:01] LABS: ANISOCYTOSIS MOD
--- NOTE | 2018-10-02 10:47 | PDOC ---
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 PLAN ADMIT GEN SURGERY CONSULT IV PAIN CONTROL SERIAL EXAMS 48 hours off Eliquis Vitals Vitals Vital Signs Date Time Temp Pulse Resp B/P (MAP) Pulse Ox O2 Delivery O2 Flow Rate FiO2 10/02/18 10:17 74 18 171/71 (104) 99 Room Air 10/02/18 06:55 99.2 99.2 Physical Exam Physical Exam HENT: Normocephalic, atraumatic, oropharynx moist. Eyes: PERRLA, EOMI, conjunctiva normal, no discharge. [] Neck: Normal range of motion, no tenderness, supple, no stridor. [] Cardiovascular:Heart rate regular rhythm, no murmur [] Lungs & Thorax: Bilateral breath sounds clear to auscultation [] Abdomen: Bowel sounds normal, soft, right lower quadrant tenderness and rebound tenderness with positive McBurney sign, no masses, no pulsatile masses. [] Skin: Warm, dry, no erythema, no rash. [] Back: No tenderness, no CVA tenderness. [] Extremities: No tenderness, no cyanosis, no clubbing, ROM intact, no edema. [] Neurologic: Alert and oriented X 3, normal motor function, normal sensory function, no focal deficits noted. [] Psychologic: Affect normal, judgement normal, mood normal. [] General: Alert, Cooperative, mild distress Heart: Regular rate Lungs: Clear, Other Extremities: No clubbing, No cyanosis Labs LABS Laboratory Tests Test 10/02/18 07:30 10/02/18 07:35 10/02/18 08:55 Sodium Level 136 mmol/L (136-145) Potassium Level 4.4 mmol/L (3.5-5.1) Chloride Level 99 mmol/L (98-107) Carbon Dioxide Level 27 mmol/L (21-32) Anion Gap 10 (6-14) Blood Urea Nitrogen 14 mg/dL (8-26) Creatinine 1.0 mg/dL (0.7-1.3) Estimated GFR (Cockcroft-Gault) 76.7 BUN/Creatinine Ratio 14 (6-20) Glucose Level 105 mg/dL (70-99) Lactic Acid Level 1.9 mmol/L (0.4-2.0) Calcium Level 9.1 mg/dL (8.5-10.1) Total Bilirubin 0.3 mg/dL (0.2-1.0) Aspartate Amino Transf (AST/SGOT) 13 U/L (15-37) Alanine Aminotransferase (ALT/SGPT) 18 U/L (16-63) Alkaline Phosphatase 56 U/L (46-116) Total Protein 6.5 g/dL (6.4-8.2) Albumin 2.8 g/dL (3.4-5.0) Albumin/Globulin Ratio 0.8 (1.0-1.7) Lipase 77 U/L (73-393) White Blood Count 8.9 x10^3/uL (4.0-11.0) Red Blood Count 2.89 x10^6/uL (4.30-5.70) Hemoglobin 8.4 g/dL (13.0-17.5) Hematocrit 24.8 % (39.0-53.0) Mean Corpuscular Volume 86 fL (79-100) Mean Corpuscular Hemoglobin 29 pg (25-35) Mean Corpuscular Hemoglobin Concent 34 g/dL (31-37) Red Cell Distribution Width 20.3 % (11.5-14.5) Platelet Count 290 x10^3/uL (140-400) Neutrophils (%) (Auto) 82 % (31-73) Lymphocytes (%) (Auto) 9 % (24-48) Monocytes (%) (Auto) 8 % (0-9) Eosinophils (%) (Auto) 0 % (0-3) Basophils (%) (Auto) 1 % (0-3) Neutrophils # (Auto) 7.3 x10^3uL (1.8-7.7) Lymphocytes # (Auto) 0.8 x10^3/uL (1.0-4.8) Monocytes # (Auto) 0.7 x10^3/uL (0.0-1.1) Eosinophils # (Auto) 0.0 x10^3/uL (0.0-0.7) Basophils # (Auto) 0.0 x10^3/uL (0.0-0.2) Platelet Estimate Adequate (ADEQUATE) Anisocytosis Mod Urine Collection Type Unknown Urine Color Yellow Urine Clarity Clear Urine pH 6.5 Urine Specific [place] 1.010 Urine Protein Negative mg/dL (NEG-TRACE) Urine Glucose (UA) Negative mg/dL (NEG) Urine Ketones (Stick) Negative mg/dL (NEG) Urine Blood Negative (NEG) Urine Nitrite Negative (NEG) Urine Bilirubin Negative (NEG) Urine Urobilinogen Dipstick 0.2 mg/dL (0.2 mg/dL) Urine Leukocyte Esterase Trace (NEG) Urine RBC Occ /HPF (0-2) Urine WBC Occ /HPF (0-4) Urine Squamous Epithelial Cells Occ /LPF Urine Bacteria 0 /HPF (0-FEW) Assessment and Plan Assessmemt and Plan Problems Medical Problems: (1) Acute appendicitis Status: Acute (2) Anemia Status: Acute 58-year-old gentleman who underwent a left upper lobe lobectomy on 05/22/2018 for lung cancer and this revealed a 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 He was initially diagnosed by biopsy on 04/04/2018. He was started on adjuvant chemotherapy with cisplatin and vinorelbine in 06/2018. He has required recurrent dose delays due to neutropenia with cycle #1. Comment Review of Relevant I have reviewed the following items florencio (where applicable) has been applied. Labs Laboratory Tests Test 10/02/18 07:30 10/02/18 07:35 10/02/18 08:55 Sodium Level 136 mmol/L (136-145) Potassium Level 4.4 mmol/L (3.5-5.1) Chloride Level 99 mmol/L (98-107) Carbon Dioxide Level 27 mmol/L (21-32) Anion Gap 10 (6-14) Blood Urea Nitrogen 14 mg/dL (8-26) Creatinine 1.0 mg/dL (0.7-1.3) Estimated GFR (Cockcroft-Gault) 76.7 BUN/Creatinine Ratio 14 (6-20) Glucose Level 105 mg/dL (70-99) Lactic Acid Level 1.9 mmol/L (0.4-2.0) Calcium Level 9.1 mg/dL (8.5-10.1) Total Bilirubin 0.3 mg/dL (0.2-1.0) Aspartate Amino Transf (AST/SGOT) 13 U/L (15-37) Alanine Aminotransferase (ALT/SGPT) 18 U/L (16-63) Alkaline Phosphatase 56 U/L (46-116) Total Protein 6.5 g/dL (6.4-8.2) Albumin 2.8 g/dL (3.4-5.0) Albumin/Globulin Ratio 0.8 (1.0-1.7) Lipase 77 U/L (73-393) White Blood Count 8.9 x10^3/uL (4.0-11.0) Red Blood Count 2.89 x10^6/uL (4.30-5.70) Hemoglobin 8.4 g/dL (13.0-17.5) Hematocrit 24.8 % (39.0-53.0) Mean Corpuscular Volume 86 fL (79-100) Mean Corpuscular Hemoglobin 29 pg (25-35) Mean Corpuscular Hemoglobin Concent 34 g/dL (31-37) Red Cell Distribution Width 20.3 % (11.5-14.5) Platelet Count 290 x10^3/uL (140-400) Neutrophils (%) (Auto) 82 % (31-73) Lymphocytes (%) (Auto) 9 % (24-48) Monocytes (%) (Auto) 8 % (0-9) Eosinophils (%) (Auto) 0 % (0-3) Basophils (%) (Auto) 1 % (0-3) Neutrophils # (Auto) 7.3 x10^3uL (1.8-7.7) Lymphocytes # (Auto) 0.8 x10^3/uL (1.0-4.8) Monocytes # (Auto) 0.7 x10^3/uL (0.0-1.1) Eosinophils # (Auto) 0.0 x10^3/uL (0.0-0.7) Basophils # (Auto) 0.0 x10^3/uL (0.0-0.2) Platelet Estimate Adequate (ADEQUATE) Anisocytosis Mod Urine Collection Type Unknown Urine Color Yellow Urine Clarity Clear Urine pH 6.5 Urine Specific [place] 1.010 Urine Protein Negative mg/dL (NEG-TRACE) Urine Glucose (UA) Negative mg/dL (NEG) Urine Ketones (Stick) Negative mg/dL (NEG) Urine Blood Negative (NEG) Urine Nitrite Negative (NEG) Urine Bilirubin Negative (NEG) Urine Urobilinogen Dipstick 0.2 mg/dL (0.2 mg/dL) Urine Leukocyte Esterase Trace (NEG) Urine RBC Occ /HPF (0-2) Urine WBC Occ /HPF (0-4) Urine Squamous Epithelial Cells Occ /LPF Urine Bacteria 0 /HPF (0-FEW) Laboratory Tests Test 10/02/18 07:30 10/02/18 07:35 10/02/18 08:55 Sodium Level 136 mmol/L (136-145) Potassium Level 4.4 mmol/L (3.5-5.1) Chloride Level 99 mmol/L (98-107) Carbon Dioxide Level 27 mmol/L (21-32) Anion Gap 10 (6-14) Blood Urea Nitrogen 14 mg/dL (8-26) Creatinine 1.0 mg/dL (0.7-1.3) Estimated GFR (Cockcroft-Gault) 76.7 BUN/Creatinine Ratio 14 (6-20) Glucose Level 105 mg/dL (70-99) Lactic Acid Level 1.9 mmol/L (0.4-2.0) Calcium Level 9.1 mg/dL (8.5-10.1) Total Bilirubin 0.3 mg/dL (0.2-1.0) Aspartate Amino Transf (AST/SGOT) 13 U/L (15-37) Alanine Aminotransferase (ALT/SGPT) 18 U/L (16-63) Alkaline Phosphatase 56 U/L (46-116) Total Protein 6.5 g/dL (6.4-8.2) Albumin 2.8 g/dL (3.4-5.0) Albumin/Globulin Ratio 0.8 (1.0-1.7) Lipase 77 U/L (73-393) White Blood Count 8.9 x10^3/uL (4.0-11.0) Red Blood Count 2.89 x10^6/uL (4.30-5.70) Hemoglobin 8.4 g/dL (13.0-17.5) Hematocrit 24.8 % (39.0-53.0) Mean Corpuscular Volume 86 fL (79-100) Mean Corpuscular Hemoglobin 29 pg (25-35) Mean Corpuscular Hemoglobin Concent 34 g/dL (31-37) Red Cell Distribution Width 20.3 % (11.5-14.5) Platelet Count 290 x10^3/uL (140-400) Neutrophils (%) (Auto) 82 % (31-73) Lymphocytes (%) (Auto) 9 % (24-48) Monocytes (%) (Auto) 8 % (0-9) Eosinophils (%) (Auto) 0 % (0-3) Basophils (%) (Auto) 1 % (0-3) Neutrophils # (Auto) 7.3 x10^3uL (1.8-7.7) Lymphocytes # (Auto) 0.8 x10^3/uL (1.0-4.8) Monocytes # (Auto) 0.7 x10^3/uL (0.0-1.1) Eosinophils # (Auto) 0.0 x10^3/uL (0.0-0.7) Basophils # (Auto) 0.0 x10^3/uL (0.0-0.2) Platelet Estimate Adequate (ADEQUATE) Anisocytosis Mod Urine Collection Type Unknown Urine Color Yellow Urine Clarity Clear Urine pH 6.5 Urine Specific [place] 1.010 Urine Protein Negative mg/dL (NEG-TRACE) Urine Glucose (UA) Negative mg/dL (NEG) Urine Ketones (Stick) Negative mg/dL (NEG) Urine Blood Negative (NEG) Urine Nitrite Negative (NEG) Urine Bilirubin Negative (NEG) Urine Urobilinogen Dipstick 0.2 mg/dL (0.2 mg/dL) Urine Leukocyte Esterase Trace (NEG) Urine RBC Occ /HPF (0-2) Urine WBC Occ /HPF (0-4) Urine Squamous Epithelial Cells Occ /LPF Urine Bacteria 0 /HPF (0-FEW) Medications Current Medications Sodium Chloride 1,000 ml @ 1,000 mls/hr Q1H IV Last administered on 10/02/18at 07:51; Start 10/02/18 at 07:08; Stop 10/02/18 at 08:07; Status DC Ondansetron HCl (Zofran) 4 mg 1X ONCE IV ; Start 10/02/18 at 07:15; Stop 10/02/18 at 07:16; Status DC Morphine Sulfate (Morphine Sulfate) 4 mg 1X ONCE IV ; Start 10/02/18 at 07:15; Stop 10/02/18 at 07:16; Status DC Iohexol (Omnipaque 300 Mg/ml) 60 ml 1X ONCE IV ; Start 10/02/18 at 08:00; Stop 10/02/18 at 08:01; Status DC Iohexol (Omnipaque 300 Mg/ml) 75 ml 1X ONCE IV Last administered on 10/02/18at 08:40; Start 10/02/18 at 08:00; Stop 10/02/18 at 08:01; Status DC Info (CONTRAST GIVEN -- Rx MONITORING) 1 each PRN DAILY PRN MC SEE COMMENTS; Start 10/02/18 at 08:00; Stop 10/04/18 at 07:59 Piperacillin Sod/ Tazobactam Sod 3.375 gm/Sodium Chloride 50 ml @ 100 mls/hr 1X ONCE IV Last administered on 10/02/18at 09:55; Start 10/02/18 at 10:00; Stop 10/02/18 at 10:29; Status DC Metronidazole 100 ml @ 100 mls/hr 1X ONCE IV ; Start 10/02/18 at 10:00; Stop 10/02/18 at 10:59 Sodium Chloride 1,000 ml @ 150 mls/hr Q6H40M IV ; Start 10/02/18 at 11:00; Stop 10/03/18 at 10:59 Active Scripts Active Reported Eliquis (Apixaban) 5 Mg Tablet 5 Mg PO BID resume sunday07/03/18 Amlodipine Besylate 10 Mg Tablet 10 Mg PO DAILY Allopurinol 100 Mg Tablet 100 Mg PO BID Vitals/I & O Vital Sign - Last 24 Hours 10/02/18 10/02/18 10/02/18 10/02/18 06:55 07:18 07:48 08:18 Temp 99.2 99.2 Pulse 86 82 78 70 Resp 20 18 18 18 B/P (MAP) 195/64 (107) 180/65 (103) 175/68 (103) 175/66 (102) Pulse Ox 98 98 97 96 O2 Delivery Room Air Room Air Room Air Room Air 10/02/18 10/02/18 10/02/18 10/02/18 08:47 09:17 09:47 10:17 Pulse 72 88 76 74 Resp 18 18 18 18 B/P (MAP) 195/70 (111) 176/75 (108) 191/69 (109) 171/71 (104) Pulse Ox 97 98 98 99 O2 Delivery Room Air Room Air Room Air Room Air LUIS URIBE MD Oct 02, 2018 10:47
--- NOTE | 2018-10-02 12:28 | PDOC2 ---
CONSULT Date of Consult Date of Consult DATE: 10/02/18 TIME: 12:23 Reason for Consult Reason for Consult: Recurrent appendicitis Referring Physician Referring Physician: Tomy Identification/Chief Complaint Chief Complaint RLQ abd pain Source Source: Chart review, Patient History of Present Illness Reason for Visit: 58 yo M with hx of appendicitis, presents for abd pain in RLQ last night. No n/v, F/c. Feels better now with abx. Pain only with aggressive movement. Hungry. Past Medical History Cardiovascular: HTN Pulmonary: Pulmonary embolus, Other GI: No pertinent hx Heme/Onc: No pertinent hx Hepatobiliary: No pertinent hx Psych: No pertinent hx Rheumatologic: No pertinent hx Infectious disease: No pertinent hx Renal/: No pertinent hx Endocrine: No pertinent hx Past Surgical History Past Surgical History: Other Family History Family History: No Significant Social History ALCOHOL: none Drugs: None Current Problem List Problem List Problems Medical Problems: (1) Acute appendicitis Status: Acute (2) Anemia Status: Acute Current Medications Current Medications Current Medications Sodium Chloride 1,000 ml @ 1,000 mls/hr Q1H IV Last administered on 10/02/18at 07:51; Start 10/02/18 at 07:08; Stop 10/02/18 at 08:07; Status DC Ondansetron HCl (Zofran) 4 mg 1X ONCE IV ; Start 10/02/18 at 07:15; Stop 10/02/18 at 07:16; Status DC Morphine Sulfate (Morphine Sulfate) 4 mg 1X ONCE IV ; Start 10/02/18 at 07:15; Stop 10/02/18 at 07:16; Status DC Iohexol (Omnipaque 300 Mg/ml) 60 ml 1X ONCE IV ; Start 10/02/18 at 08:00; Stop 10/02/18 at 08:01; Status DC Iohexol (Omnipaque 300 Mg/ml) 75 ml 1X ONCE IV Last administered on 10/02/18at 08:40; Start 10/02/18 at 08:00; Stop 10/02/18 at 08:01; Status DC Info (CONTRAST GIVEN -- Rx MONITORING) 1 each PRN DAILY PRN MC SEE COMMENTS; Start 10/02/18 at 08:00; Stop 10/04/18 at 07:59 Piperacillin Sod/ Tazobactam Sod 3.375 gm/Sodium Chloride 50 ml @ 100 mls/hr 1X ONCE IV Last administered on 10/02/18at 09:55; Start 10/02/18 at 10:00; Stop 10/02/18 at 10:29; Status DC Metronidazole 100 ml @ 100 mls/hr 1X ONCE IV ; Start 10/02/18 at 10:00; Stop 10/02/18 at 10:59; Status DC Sodium Chloride 1,000 ml @ 150 mls/hr Q6H40M IV ; Start 10/02/18 at 11:00; Stop 10/03/18 at 10:59 Active Scripts Active Reported Eliquis (Apixaban) 5 Mg Tablet 5 Mg PO BID resume sunday07/03/18 Amlodipine Besylate 10 Mg Tablet 10 Mg PO DAILY Allopurinol 100 Mg Tablet 100 Mg PO BID Allergies Allergies: Coded Allergies: fentanyl (Verified Adverse Reaction, Intermediate, 08/08/18) Respiratory depression. ROS Gastrointestinal: Yes Abdominal Pain Physical Exam General: Alert, Oriented X3, Cooperative, No acute distress HEENT: EOMI Lungs: Normal air movement Abdomen: Soft, No masses, Other (TTP RLQ) Extremities: No clubbing, No cyanosis Skin: No rashes, No breakdown Neuro: Normal speech, Sensation intact Psych/Mental Status: Mental status NL, Mood NL Vitals VITALS Vital Signs Date Time Temp Pulse Resp B/P (MAP) Pulse Ox O2 Delivery O2 Flow Rate FiO2 10/02/18 10:17 74 18 171/71 (104) 99 Room Air 10/02/18 06:55 99.2 99.2 Labs Labs Laboratory Tests Test 10/02/18 07:30 10/02/18 07:35 10/02/18 08:55 Sodium Level 136 mmol/L (136-145) Potassium Level 4.4 mmol/L (3.5-5.1) Chloride Level 99 mmol/L (98-107) Carbon Dioxide Level 27 mmol/L (21-32) Anion Gap 10 (6-14) Blood Urea Nitrogen 14 mg/dL (8-26) Creatinine 1.0 mg/dL (0.7-1.3) Estimated GFR (Cockcroft-Gault) 76.7 BUN/Creatinine Ratio 14 (6-20) Glucose Level 105 mg/dL (70-99) Lactic Acid Level 1.9 mmol/L (0.4-2.0) Calcium Level 9.1 mg/dL (8.5-10.1) Total Bilirubin 0.3 mg/dL (0.2-1.0) Aspartate Amino Transf (AST/SGOT) 13 U/L (15-37) Alanine Aminotransferase (ALT/SGPT) 18 U/L (16-63) Alkaline Phosphatase 56 U/L (46-116) Total Protein 6.5 g/dL (6.4-8.2) Albumin 2.8 g/dL (3.4-5.0) Albumin/Globulin Ratio 0.8 (1.0-1.7) Lipase 77 U/L (73-393) White Blood Count 8.9 x10^3/uL (4.0-11.0) Red Blood Count 2.89 x10^6/uL (4.30-5.70) Hemoglobin 8.4 g/dL (13.0-17.5) Hematocrit 24.8 % (39.0-53.0) Mean Corpuscular Volume 86 fL (79-100) Mean Corpuscular Hemoglobin 29 pg (25-35) Mean Corpuscular Hemoglobin Concent 34 g/dL (31-37) Red Cell Distribution Width 20.3 % (11.5-14.5) Platelet Count 290 x10^3/uL (140-400) Neutrophils (%) (Auto) 82 % (31-73) Lymphocytes (%) (Auto) 9 % (24-48) Monocytes (%) (Auto) 8 % (0-9) Eosinophils (%) (Auto) 0 % (0-3) Basophils (%) (Auto) 1 % (0-3) Neutrophils # (Auto) 7.3 x10^3uL (1.8-7.7) Lymphocytes # (Auto) 0.8 x10^3/uL (1.0-4.8) Monocytes # (Auto) 0.7 x10^3/uL (0.0-1.1) Eosinophils # (Auto) 0.0 x10^3/uL (0.0-0.7) Basophils # (Auto) 0.0 x10^3/uL (0.0-0.2) Platelet Estimate Adequate (ADEQUATE) Anisocytosis Mod Urine Collection Type Unknown Urine Color Yellow Urine Clarity Clear Urine pH 6.5 Urine Specific [place] 1.010 Urine Protein Negative mg/dL (NEG-TRACE) Urine Glucose (UA) Negative mg/dL (NEG) Urine Ketones (Stick) Negative mg/dL (NEG) Urine Blood Negative (NEG) Urine Nitrite Negative (NEG) Urine Bilirubin Negative (NEG) Urine Urobilinogen Dipstick 0.2 mg/dL (0.2 mg/dL) Urine Leukocyte Esterase Trace (NEG) Urine RBC Occ /HPF (0-2) Urine WBC Occ /HPF (0-4) Urine Squamous Epithelial Cells Occ /LPF Urine Bacteria 0 /HPF (0-FEW) Laboratory Tests Test 10/02/18 07:30 10/02/18 07:35 10/02/18 08:55 Sodium Level 136 mmol/L (136-145) Potassium Level 4.4 mmol/L (3.5-5.1) Chloride Level 99 mmol/L (98-107) Carbon Dioxide Level 27 mmol/L (21-32) Anion Gap 10 (6-14) Blood Urea Nitrogen 14 mg/dL (8-26) Creatinine 1.0 mg/dL (0.7-1.3) Estimated GFR (Cockcroft-Gault) 76.7 BUN/Creatinine Ratio 14 (6-20) Glucose Level 105 mg/dL (70-99) Lactic Acid Level 1.9 mmol/L (0.4-2.0) Calcium Level 9.1 mg/dL (8.5-10.1) Total Bilirubin 0.3 mg/dL (0.2-1.0) Aspartate Amino Transf (AST/SGOT) 13 U/L (15-37) Alanine Aminotransferase (ALT/SGPT) 18 U/L (16-63) Alkaline Phosphatase 56 U/L (46-116) Total Protein 6.5 g/dL (6.4-8.2) Albumin 2.8 g/dL (3.4-5.0) Albumin/Globulin Ratio 0.8 (1.0-1.7) Lipase 77 U/L (73-393) White Blood Count 8.9 x10^3/uL (4.0-11.0) Red Blood Count 2.89 x10^6/uL (4.30-5.70) Hemoglobin 8.4 g/dL (13.0-17.5) Hematocrit 24.8 % (39.0-53.0) Mean Corpuscular Volume 86 fL (79-100) Mean Corpuscular Hemoglobin 29 pg (25-35) Mean Corpuscular Hemoglobin Concent 34 g/dL (31-37) Red Cell Distribution Width 20.3 % (11.5-14.5) Platelet Count 290 x10^3/uL (140-400) Neutrophils (%) (Auto) 82 % (31-73) Lymphocytes (%) (Auto) 9 % (24-48) Monocytes (%) (Auto) 8 % (0-9) Eosinophils (%) (Auto) 0 % (0-3) Basophils (%) (Auto) 1 % (0-3) Neutrophils # (Auto) 7.3 x10^3uL (1.8-7.7) Lymphocytes # (Auto) 0.8 x10^3/uL (1.0-4.8) Monocytes # (Auto) 0.7 x10^3/uL (0.0-1.1) Eosinophils # (Auto) 0.0 x10^3/uL (0.0-0.7) Basophils # (Auto) 0.0 x10^3/uL (0.0-0.2) Platelet Estimate Adequate (ADEQUATE) Anisocytosis Mod Urine Collection Type Unknown Urine Color Yellow Urine Clarity Clear Urine pH 6.5 Urine Specific [place] 1.010 Urine Protein Negative mg/dL (NEG-TRACE) Urine Glucose (UA) Negative mg/dL (NEG) Urine Ketones (Stick) Negative mg/dL (NEG) Urine Blood Negative (NEG) Urine Nitrite Negative (NEG) Urine Bilirubin Negative (NEG) Urine Urobilinogen Dipstick 0.2 mg/dL (0.2 mg/dL) Urine Leukocyte Esterase Trace (NEG) Urine RBC Occ /HPF (0-2) Urine WBC Occ /HPF (0-4) Urine Squamous Epithelial Cells Occ /LPF Urine Bacteria 0 /HPF (0-FEW) Images Images Ct c/w appendicitis Assessment/Plan Assessment/Plan Recurrent appendicitis previous treated with abx, but given recurrence and other comorbidities, favor proceeding with laparoscopic appendectomy. Will ask oncology to comment Pt current off chemo for two weeks, scheduled to receive now, but will hold Anticoagulants off for 24 hours, will hold until after surgery tomorrow. 48 hours off Eliquis R/R/B/A d/w pt and pt's supportive . Risks, including, but not limited to: bleeding, infection, damage to surrounding structures, risk of anesthesia, risk of open, risk of . They appear to understand, their questions are answered and they elect to proceed. Surgery scheduled for 10/03 at 1200 Thanks for consult! VIVIAN BRADLEY MD Oct 02, 2018 12:28
[2018-10-02] MEDS: IV NORMAL SALINE 1000ML BAG 1,000 ML IV SCH ×2 (14:04→17:40)
[2018-10-02 15:00] VITALS: BP 145/65
[2018-10-02] MEDS: amLODIPine BESYLATE 10 MG TABLET PO SCH (18:02)
[2018-10-02] MEDS: PIPERACILLIN/TAZOBACTAM 3.375 GM in IV NORMAL SALINE 50ML 50 ML IV SCH (18:02)
[2018-10-02 19:00] VITALS: BP 142/57
[2018-10-02 23:01] VITALS: BP 142/53
[2018-10-03] VITALS (9 sets, daily range): BP systolic 133–153; BP diastolic 50–60
[2018-10-03] MEDS: IV NORMAL SALINE 1000ML BAG 1,000 ML IV SCH ×2 (05:00→07:00)
[2018-10-03 05:19] LABS: BASO % 1 % (0-3); EOS % 1 % (0-3); HEMATOCRIT 27.6 % (39.0-53.0); HEMOGLOBIN 9.2 g/dL (13.0-17.5); LYMPH # 0.5 x10^3/uL (1.0-4.8); LYMPH % 9 % (24-48); MEAN CORPUSCULAR HEMOGLOBIN 29 pg (25-35); MEAN CORPUSCULAR HGB CONC 33 g/dL (31-37); MEAN CORPUSCULAR VOLUME 86 fL (79-100); MONO # 0.4 x10^3/uL (0.0-1.1); MONO % 8 % (0-9); NEUT # 4.2 x10^3uL (1.8-7.7); NEUT % 82 % (31-73); PLATELET COUNT 202 x10^3/uL (140-400); RED BLOOD COUNT 3.21 x10^6/uL (4.30-5.70); RED CELL DISTRIBUTION WIDTH 20.1 % (11.5-14.5); WHITE BLOOD COUNT 5.1 x10^3/uL (4.0-11.0)
[2018-10-03 05:47] LABS: ALBUMIN 2.3 g/dL (3.4-5.0); ALBUMIN/GLOBULIN RATIO 0.6 (1.0-1.7); CALCIUM 8.2 mg/dL (8.5-10.1); CREATININE 1.1 mg/dL (0.7-1.3); GFR 68.8; TOTAL BILIRUBIN 0.5 mg/dL (0.2-1.0); TOTAL PROTEIN 5.9 g/dL (6.4-8.2)
[2018-10-03] MEDS: PIPERACILLIN/TAZOBACTAM 3.375 GM in IV NORMAL SALINE 50ML 50 ML IV SCH ×5 (05:59→18:40)
[2018-10-03] MEDS ORDERED: IV RINGERS,LACTATED 1000ML 1,000 ML IV SCH (07:00)
[2018-10-03] MEDS ORDERED: HYDROmorphone 2 MG/ML VIAL IV PRN (07:00)
[2018-10-03] MEDS ORDERED: ONDANSETRON PF 4 MG/2 ML VIAL. IV PRN ×2 (07:00→14:15)
[2018-10-03] MEDS ORDERED: PROCHLORPERAZINE 10 MG/2 ML VIAL. IV PRN (07:00)
[2018-10-03] MEDS ORDERED: MORPHINE SULFATE 2 MG/ML VIAL. IV PRN (07:00)
[2018-10-03] MEDS ORDERED: LIDOCAINE 1% PF 2 ML VIAL. ID PRN (07:00)
[2018-10-03] MEDS: amLODIPine BESYLATE 10 MG TABLET PO SCH (09:00)
--- NOTE | 2018-10-03 09:05 | PDOC2 ---
CONSULT Date of Consult Date of Consult DATE: 10/03/18 TIME: 08:57 Reason for consultation: Appendicitis Consult: Hematology oncology, Dr. Shayla Delgadillo History of present illness: He is a 58-year-old man with stage III lung cancer been treated with chemotherapy, unfortunately he had pseudoobstruction of the colon May 2018, was treated for acute appendicitis medically Jul 2018, has done better with titrating chemotherapy to avoid neutropenia and infection, and was due for cycle 3 this week but did not receive chemotherapy due to abdominal pain worsening in the right lower quadrant, acute, moderate, worse with eating, associated with nausea and subjective fever, and better while here, has not required morphine for pain control. Is pending appendectomy. Has not had his last dose of apixaban since Sunday. 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, T3 N2 stage IIIB Colonic pseudoobstruction may 2018 Acute appendicitis July 2018 treated medically Hypertension Prior tobacco quit at 44 years old Alcohol use moderate, decreased during chemotherapy History of osteomyelitis, post phlebitic syndrome right lower extremity PVCs Past surgical history: Bronchoscopy Colonoscopy Left lower extremity fracture surgeries Left upper lobectomy Left axillary lymph node biopsy Port placement Allergies: fentanyl Medications: See attached list Social history: , 2 sons Family history: prostate cancer, liver cancer Review of systems: abdom pain, some recent nausea, vomiting, subjective fevers, lower extremity phlebitic symptoms, otherwise 10 point review of systems negative Physical exam: Vitals reviewed Gen.: Well-nourished and well-developed in no acute distress HEENT: mucous membranes dry, head normocephalic atraumatic Neck: Supple, no lymphadenopathy Lymph nodes: No palpable lymphadenopathy neck or axilla Lungs: Breathing comfortably on room air, no evidence of respiratory distress Heart: Regular rate and rhythm Abdomen: Soft, nondistended, TTP RLQ, some mild guarding Extremities: No cyanosis or signif edema Skin: No obvious rashes or skin breakdown Neuro: Alert and oriented 3 Psych: Pleasant mood and affect Lab reviewed: White count 5.1, hemoglobin 9.2, platelets 202, creatinine 1.1 Rads reviewed: Abdominopelvic CT small left effusion, subpleural scarring, favor acute appendicitis Case discussed with: Patient and his , and my nurse, records reviewed in [facility] and [facility], including labs and radiology, please see note for summary details. Assessment and Plan: He is a 58-year-old man on chemotherapy adjuvantly for stage III lung cancer that has been resected, unfortunately he has acute appendicitis and is pending resection. Acute appendicitis: On antibiotics, Agree with surgery, appreciate Dr Ohara's assistance History of PE and recurrent DVT: Would recommend anticoagulation restarting as soon as safe postoperatively, his novel anticoagulant has been held for 48 hours, he should be safe to go to surgery at this time Lung cancer: Can resume chemotherapy after he's Healed up postoperatively Thank you kindly for this consultation, and please don't hesitate to call with further questions. Past Medical History Cardiovascular: HTN Pulmonary: Pulmonary embolus, Other GI: No pertinent hx Heme/Onc: No pertinent hx Hepatobiliary: No pertinent hx Psych: No pertinent hx Rheumatologic: No pertinent hx Infectious disease: No pertinent hx Renal/: No pertinent hx Endocrine: No pertinent hx Past Surgical History Past Surgical History: Other Family History Family History: No Significant Social History No ALCOHOL: none Drugs: None Current Problem List Problem List Problems Medical Problems: (1) Acute appendicitis Status: Acute (2) Anemia Status: Acute Current Medications Current Medications Current Medications Sodium Chloride 1,000 ml @ 1,000 mls/hr Q1H IV Last administered on 10/02/18at 07:51; Start 10/02/18 at 07:08; Stop 10/02/18 at 08:07; Status DC Ondansetron HCl (Zofran) 4 mg 1X ONCE IV ; Start 10/02/18 at 07:15; Stop 10/02/18 at 07:16; Status DC Morphine Sulfate (Morphine Sulfate) 4 mg 1X ONCE IV ; Start 10/02/18 at 07:15; Stop 10/02/18 at 07:16; Status DC Iohexol (Omnipaque 300 Mg/ml) 60 ml 1X ONCE IV ; Start 10/02/18 at 08:00; Stop 10/02/18 at 08:01; Status DC Iohexol (Omnipaque 300 Mg/ml) 75 ml 1X ONCE IV Last administered on 10/02/18at 08:40; Start 10/02/18 at 08:00; Stop 10/02/18 at 08:01; Status DC Info (CONTRAST GIVEN -- Rx MONITORING) 1 each PRN DAILY PRN MC SEE COMMENTS; Start 10/02/18 at 08:00; Stop 10/04/18 at 07:59 Piperacillin Sod/ Tazobactam Sod 3.375 gm/Sodium Chloride 50 ml @ 100 mls/hr 1X ONCE IV Last administered on 10/02/18at 09:55; Start 10/02/18 at 10:00; Stop 10/02/18 at 10:29; Status DC Metronidazole 100 ml @ 100 mls/hr 1X ONCE IV Last administered on 10/02/18at 14:04; Start 10/02/18 at 10:00; Stop 10/02/18 at 10:59; Status DC Sodium Chloride 1,000 ml @ 150 mls/hr Q6H40M IV Last administered on 10/03/18at 05:00; Start 10/02/18 at 11:00; Stop 10/03/18 at 10:59 Piperacillin Sod/ Tazobactam Sod 3.375 gm/Sodium Chloride 50 ml @ 100 mls/hr Q6HRS IV Last administered on 10/03/18at 05:59; Start 10/02/18 at 18:00 Ondansetron HCl (Zofran) 4 mg PRN Q6HRS PRN IV NAUSEA/VOMITING; Start 10/03/18 at 07:00; Stop 10/04/18 at 06:59 Morphine Sulfate (Morphine Sulfate) 1 mg PRN Q10MIN PRN IV SEVERE PAIN 7-10; Start 10/03/18 at 07:00; Stop 10/04/18 at 06:59 Ringer's Solution 1,000 ml @ 30 mls/hr Q24H IV ; Start 10/03/18 at 07:00; Stop 10/03/18 at 18:59 Lidocaine HCl (Xylocaine-Mpf 1% 2ml Vial) 2 ml PRN 1X PRN ID PRIOR TO IV START; Start 10/03/18 at 07:00; Stop 10/04/18 at 06:59 Hydromorphone HCl (Dilaudid) 0.5 mg PRN Q10MIN PRN IV SEV PAIN, Second choice; Start 10/03/18 at 07:00; Stop 10/04/18 at 06:59 Prochlorperazine Edisylate (Compazine) 5 mg PACU PRN PRN IV NAUSEA, MRX1; Start 10/03/18 at 07:00; Stop 10/04/18 at 06:59 Amlodipine Besylate (Norvasc) 10 mg DAILY PO Last administered on 10/02/18at 18:02; Start 10/02/18 at 14:00 Active Scripts Active Reported Eliquis (Apixaban) 5 Mg Tablet 5 Mg PO BID resume sunday07/03/18 Amlodipine Besylate 10 Mg Tablet 10 Mg PO DAILY Allopurinol 100 Mg Tablet 100 Mg PO BID Allergies Allergies: Coded Allergies: No Known Medication Allergies (Verified Allergy, Unknown, 10/02/18) fentanyl (Verified Adverse Reaction, Intermediate, 08/08/18) Respiratory depression. Vitals VITALS Vital Signs Date Time Temp Pulse Resp B/P (MAP) Pulse Ox O2 Delivery O2 Flow Rate FiO2 10/03/18 07:00 99.1 77 18 133/58 (83) 96 Room Air 99.1 Labs Labs Laboratory Tests Test 10/02/18 07:30 10/02/18 07:35 10/02/18 08:55 10/03/18 05:05 Sodium Level 136 mmol/L (136-145) 138 mmol/L (136-145) Potassium Level 4.4 mmol/L (3.5-5.1) 4.0 mmol/L (3.5-5.1) Chloride Level 99 mmol/L (98-107) 103 mmol/L (98-107) Carbon Dioxide Level 27 mmol/L (21-32) 28 mmol/L (21-32) Anion Gap 10 (6-14) 7 (6-14) Blood Urea Nitrogen 14 mg/dL (8-26) 13 mg/dL (8-26) Creatinine 1.0 mg/dL (0.7-1.3) 1.1 mg/dL (0.7-1.3) Estimated GFR (Cockcroft-Gault) 76.7 68.8 BUN/Creatinine Ratio 14 (6-20) 12 (6-20) Glucose Level 105 mg/dL (70-99) 104 mg/dL (70-99) Lactic Acid Level 1.9 mmol/L (0.4-2.0) Calcium Level 9.1 mg/dL (8.5-10.1) 8.2 mg/dL (8.5-10.1) Total Bilirubin 0.3 mg/dL (0.2-1.0) 0.5 mg/dL (0.2-1.0) Aspartate Amino Transf (AST/SGOT) 13 U/L (15-37) 12 U/L (15-37) Alanine Aminotransferase (ALT/SGPT) 18 U/L (16-63) 13 U/L (16-63) Alkaline Phosphatase 56 U/L (46-116) 54 U/L (46-116) Total Protein 6.5 g/dL (6.4-8.2) 5.9 g/dL (6.4-8.2) Albumin 2.8 g/dL (3.4-5.0) 2.3 g/dL (3.4-5.0) Albumin/Globulin Ratio 0.8 (1.0-1.7) 0.6 (1.0-1.7) Lipase 77 U/L (73-393) White Blood Count 8.9 x10^3/uL (4.0-11.0) 5.1 x10^3/uL (4.0-11.0) Red Blood Count 2.89 x10^6/uL (4.30-5.70) 3.21 x10^6/uL (4.30-5.70) Hemoglobin 8.4 g/dL (13.0-17.5) 9.2 g/dL (13.0-17.5) Hematocrit 24.8 % (39.0-53.0) 27.6 % (39.0-53.0) Mean Corpuscular Volume 86 fL (79-100) 86 fL (79-100) Mean Corpuscular Hemoglobin 29 pg (25-35) 29 pg (25-35) Mean Corpuscular Hemoglobin Concent 34 g/dL (31-37) 33 g/dL (31-37) Red Cell Distribution Width 20.3 % (11.5-14.5) 20.1 % (11.5-14.5) Platelet Count 290 x10^3/uL (140-400) 202 x10^3/uL (140-400) Neutrophils (%) (Auto) 82 % (31-73) 82 % (31-73) Lymphocytes (%) (Auto) 9 % (24-48) 9 % (24-48) Monocytes (%) (Auto) 8 % (0-9) 8 % (0-9) Eosinophils (%) (Auto) 0 % (0-3) 1 % (0-3) Basophils (%) (Auto) 1 % (0-3) 1 % (0-3) Neutrophils # (Auto) 7.3 x10^3uL (1.8-7.7) 4.2 x10^3uL (1.8-7.7) Lymphocytes # (Auto) 0.8 x10^3/uL (1.0-4.8) 0.5 x10^3/uL (1.0-4.8) Monocytes # (Auto) 0.7 x10^3/uL (0.0-1.1) 0.4 x10^3/uL (0.0-1.1) Eosinophils # (Auto) 0.0 x10^3/uL (0.0-0.7) 0.0 x10^3/uL (0.0-0.7) Basophils # (Auto) 0.0 x10^3/uL (0.0-0.2) 0.0 x10^3/uL (0.0-0.2) Platelet Estimate Adequate (ADEQUATE) Anisocytosis Mod Urine Collection Type Unknown Urine Color Yellow Urine Clarity Clear Urine pH 6.5 Urine Specific [place] 1.010 Urine Protein Negative mg/dL (NEG-TRACE) Urine Glucose (UA) Negative mg/dL (NEG) Urine Ketones (Stick) Negative mg/dL (NEG) Urine Blood Negative (NEG) Urine Nitrite Negative (NEG) Urine Bilirubin Negative (NEG) Urine Urobilinogen Dipstick 0.2 mg/dL (0.2 mg/dL) Urine Leukocyte Esterase Trace (NEG) Urine RBC Occ /HPF (0-2) Urine WBC Occ /HPF (0-4) Urine Squamous Epithelial Cells Occ /LPF Urine Bacteria 0 /HPF (0-FEW) Laboratory Tests Test 10/03/18 05:05 White Blood Count 5.1 x10^3/uL (4.0-11.0) Red Blood Count 3.21 x10^6/uL (4.30-5.70) Hemoglobin 9.2 g/dL (13.0-17.5) Hematocrit 27.6 % (39.0-53.0) Mean Corpuscular Volume 86 fL (79-100) Mean Corpuscular Hemoglobin 29 pg (25-35) Mean Corpuscular Hemoglobin Concent 33 g/dL (31-37) Red Cell Distribution Width 20.1 % (11.5-14.5) Platelet Count 202 x10^3/uL (140-400) Neutrophils (%) (Auto) 82 % (31-73) Lymphocytes (%) (Auto) 9 % (24-48) Monocytes (%) (Auto) 8 % (0-9) Eosinophils (%) (Auto) 1 % (0-3) Basophils (%) (Auto) 1 % (0-3) Neutrophils # (Auto) 4.2 x10^3uL (1.8-7.7) Lymphocytes # (Auto) 0.5 x10^3/uL (1.0-4.8) Monocytes # (Auto) 0.4 x10^3/uL (0.0-1.1) Eosinophils # (Auto) 0.0 x10^3/uL (0.0-0.7) Basophils # (Auto) 0.0 x10^3/uL (0.0-0.2) Sodium Level 138 mmol/L (136-145) Potassium Level 4.0 mmol/L (3.5-5.1) Chloride Level 103 mmol/L (98-107) Carbon Dioxide Level 28 mmol/L (21-32) Anion Gap 7 (6-14) Blood Urea Nitrogen 13 mg/dL (8-26) Creatinine 1.1 mg/dL (0.7-1.3) Estimated GFR (Cockcroft-Gault) 68.8 BUN/Creatinine Ratio 12 (6-20) Glucose Level 104 mg/dL (70-99) Calcium Level 8.2 mg/dL (8.5-10.1) Total Bilirubin 0.5 mg/dL (0.2-1.0) Aspartate Amino Transf (AST/SGOT) 12 U/L (15-37) Alanine Aminotransferase (ALT/SGPT) 13 U/L (16-63) Alkaline Phosphatase 54 U/L (46-116) Total Protein 5.9 g/dL (6.4-8.2) Albumin 2.3 g/dL (3.4-5.0) Albumin/Globulin Ratio 0.6 (1.0-1.7) SHAYLA DELGADILLO MD Oct 03, 2018 09:05
[2018-10-03] MEDS ORDERED: fentaNYL PF VIAL 100 MCG/2 ML VIAL ONE (09:39)
[2018-10-03] MEDS ORDERED: ONDANSETRON PF 4 MG/2 ML VIAL. ONE (09:39)
[2018-10-03] MEDS ORDERED: DEXAMETHASONE SOD PHOS 4 MG/ML VIAL ONE ×2 (09:39)
[2018-10-03] MEDS ORDERED: MIDAZOLAM HCL/PF 2 MG/2 ML VIAL. ONE (09:39)
[2018-10-03] MEDS ORDERED: PROPOFOL 20 ML IV ONE (09:39)
[2018-10-03] MEDS ORDERED: LIDOCAINE 2% PF 5 ML VIAL. ONE (09:39)
[2018-10-03] MEDS ORDERED: ROCURONIUM 50 MG/5 ML VIAL. ONE (09:39)
[2018-10-03] MEDS ORDERED: SUCCINYLCHOLINE 200 MG/10 ML VIAL. ONE (09:40)
[2018-10-03] MEDS ORDERED: BUPIVAC MPF-EPI 0.5%-1:200000 30 ML VIAL. ONE (11:01)
--- NOTE | 2018-10-03 11:54 | NUR ---
SW following for discharge planning. Discussed with RN, pt from home with and children, gets around fine. CA dx. Pt having surgery today. SW will continue to follow.
--- NOTE | 2018-10-03 12:03 | PDOC ---
SURGICAL PROGRESS NOTE Subjective Pre-Op Note 58 yo M with appendicitis, pain somewhat less today. Appreciate oncology input. TO OR for laparoscopic versus open appendectomy. R/R/B/A d/w pt and pt's supportive family. Vital Signs Vital Signs Date Time Temp Pulse Resp B/P (MAP) Pulse Ox O2 Delivery O2 Flow Rate FiO2 10/03/18 11:52 97.8 77 16 151/67 95 Room Air 97.8 I&O Intake and Output 10/03/18 07:00 Intake Total 1490 ml Balance 1490 ml Intake Oral 440 ml IV Total 1050 ml # Voids 4 Labs Laboratory Tests Test 10/02/18 07:30 10/02/18 07:35 10/02/18 08:55 10/03/18 05:05 Sodium Level 136 mmol/L (136-145) 138 mmol/L (136-145) Potassium Level 4.4 mmol/L (3.5-5.1) 4.0 mmol/L (3.5-5.1) Chloride Level 99 mmol/L (98-107) 103 mmol/L (98-107) Carbon Dioxide Level 27 mmol/L (21-32) 28 mmol/L (21-32) Anion Gap 10 (6-14) 7 (6-14) Blood Urea Nitrogen 14 mg/dL (8-26) 13 mg/dL (8-26) Creatinine 1.0 mg/dL (0.7-1.3) 1.1 mg/dL (0.7-1.3) Estimated GFR (Cockcroft-Gault) 76.7 68.8 BUN/Creatinine Ratio 14 (6-20) 12 (6-20) Glucose Level 105 mg/dL (70-99) 104 mg/dL (70-99) Lactic Acid Level 1.9 mmol/L (0.4-2.0) Calcium Level 9.1 mg/dL (8.5-10.1) 8.2 mg/dL (8.5-10.1) Total Bilirubin 0.3 mg/dL (0.2-1.0) 0.5 mg/dL (0.2-1.0) Aspartate Amino Transf (AST/SGOT) 13 U/L (15-37) 12 U/L (15-37) Alanine Aminotransferase (ALT/SGPT) 18 U/L (16-63) 13 U/L (16-63) Alkaline Phosphatase 56 U/L (46-116) 54 U/L (46-116) Total Protein 6.5 g/dL (6.4-8.2) 5.9 g/dL (6.4-8.2) Albumin 2.8 g/dL (3.4-5.0) 2.3 g/dL (3.4-5.0) Albumin/Globulin Ratio 0.8 (1.0-1.7) 0.6 (1.0-1.7) Lipase 77 U/L (73-393) White Blood Count 8.9 x10^3/uL (4.0-11.0) 5.1 x10^3/uL (4.0-11.0) Red Blood Count 2.89 x10^6/uL (4.30-5.70) 3.21 x10^6/uL (4.30-5.70) Hemoglobin 8.4 g/dL (13.0-17.5) 9.2 g/dL (13.0-17.5) Hematocrit 24.8 % (39.0-53.0) 27.6 % (39.0-53.0) Mean Corpuscular Volume 86 fL (79-100) 86 fL (79-100) Mean Corpuscular Hemoglobin 29 pg (25-35) 29 pg (25-35) Mean Corpuscular Hemoglobin Concent 34 g/dL (31-37) 33 g/dL (31-37) Red Cell Distribution Width 20.3 % (11.5-14.5) 20.1 % (11.5-14.5) Platelet Count 290 x10^3/uL (140-400) 202 x10^3/uL (140-400) Neutrophils (%) (Auto) 82 % (31-73) 82 % (31-73) Lymphocytes (%) (Auto) 9 % (24-48) 9 % (24-48) Monocytes (%) (Auto) 8 % (0-9) 8 % (0-9) Eosinophils (%) (Auto) 0 % (0-3) 1 % (0-3) Basophils (%) (Auto) 1 % (0-3) 1 % (0-3) Neutrophils # (Auto) 7.3 x10^3uL (1.8-7.7) 4.2 x10^3uL (1.8-7.7) Lymphocytes # (Auto) 0.8 x10^3/uL (1.0-4.8) 0.5 x10^3/uL (1.0-4.8) Monocytes # (Auto) 0.7 x10^3/uL (0.0-1.1) 0.4 x10^3/uL (0.0-1.1) Eosinophils # (Auto) 0.0 x10^3/uL (0.0-0.7) 0.0 x10^3/uL (0.0-0.7) Basophils # (Auto) 0.0 x10^3/uL (0.0-0.2) 0.0 x10^3/uL (0.0-0.2) Platelet Estimate Adequate (ADEQUATE) Anisocytosis Mod Urine Collection Type Unknown Urine Color Yellow Urine Clarity Clear Urine pH 6.5 Urine Specific [place] 1.010 Urine Protein Negative mg/dL (NEG-TRACE) Urine Glucose (UA) Negative mg/dL (NEG) Urine Ketones (Stick) Negative mg/dL (NEG) Urine Blood Negative (NEG) Urine Nitrite Negative (NEG) Urine Bilirubin Negative (NEG) Urine Urobilinogen Dipstick 0.2 mg/dL (0.2 mg/dL) Urine Leukocyte Esterase Trace (NEG) Urine RBC Occ /HPF (0-2) Urine WBC Occ /HPF (0-4) Urine Squamous Epithelial Cells Occ /LPF Urine Bacteria 0 /HPF (0-FEW) Laboratory Tests Test 10/03/18 05:05 White Blood Count 5.1 x10^3/uL (4.0-11.0) Red Blood Count 3.21 x10^6/uL (4.30-5.70) Hemoglobin 9.2 g/dL (13.0-17.5) Hematocrit 27.6 % (39.0-53.0) Mean Corpuscular Volume 86 fL (79-100) Mean Corpuscular Hemoglobin 29 pg (25-35) Mean Corpuscular Hemoglobin Concent 33 g/dL (31-37) Red Cell Distribution Width 20.1 % (11.5-14.5) Platelet Count 202 x10^3/uL (140-400) Neutrophils (%) (Auto) 82 % (31-73) Lymphocytes (%) (Auto) 9 % (24-48) Monocytes (%) (Auto) 8 % (0-9) Eosinophils (%) (Auto) 1 % (0-3) Basophils (%) (Auto) 1 % (0-3) Neutrophils # (Auto) 4.2 x10^3uL (1.8-7.7) Lymphocytes # (Auto) 0.5 x10^3/uL (1.0-4.8) Monocytes # (Auto) 0.4 x10^3/uL (0.0-1.1) Eosinophils # (Auto) 0.0 x10^3/uL (0.0-0.7) Basophils # (Auto) 0.0 x10^3/uL (0.0-0.2) Sodium Level 138 mmol/L (136-145) Potassium Level 4.0 mmol/L (3.5-5.1) Chloride Level 103 mmol/L (98-107) Carbon Dioxide Level 28 mmol/L (21-32) Anion Gap 7 (6-14) Blood Urea Nitrogen 13 mg/dL (8-26) Creatinine 1.1 mg/dL (0.7-1.3) Estimated GFR (Cockcroft-Gault) 68.8 BUN/Creatinine Ratio 12 (6-20) Glucose Level 104 mg/dL (70-99) Calcium Level 8.2 mg/dL (8.5-10.1) Total Bilirubin 0.5 mg/dL (0.2-1.0) Aspartate Amino Transf (AST/SGOT) 12 U/L (15-37) Alanine Aminotransferase (ALT/SGPT) 13 U/L (16-63) Alkaline Phosphatase 54 U/L (46-116) Total Protein 5.9 g/dL (6.4-8.2) Albumin 2.3 g/dL (3.4-5.0) Albumin/Globulin Ratio 0.6 (1.0-1.7) Problem List Problems Medical Problems: (1) Acute appendicitis Status: Acute (2) Anemia Status: Acute VIVIAN BRADLEY MD Oct 03, 2018 12:03
[2018-10-03] MEDS ORDERED: GLYCOPYRROLATE 1 MG/5 ML VIAL. ONE (12:54)
[2018-10-03] MEDS ORDERED: NEOSTIGMINE METHYLSULFATE 5 MG/5 ML SYRINGE. ONE (12:54)
--- NOTE | 2018-10-03 13:03 | PDOC ---
[employer] PROGRESS NOTE Chief Complaint Chief Complaint Appendicitis History of lung cancer History of Present Illness History of Present Illness Patient seen and he is on his way to surgery family and nurse present Vitals Vitals Vital Signs Date Time Temp Pulse Resp B/P (MAP) Pulse Ox O2 Delivery O2 Flow Rate FiO2 10/03/18 11:52 97.8 77 16 151/67 95 Room Air 97.8 Physical Exam Physical Exam Neurologic: Alert and oriented X 3, normal motor function, normal sensory function, no focal deficits noted. [] Psychologic: Affect normal, judgement normal, mood normal. [] General: Alert, Oriented X3, Cooperative, No acute distress Labs Labs: Laboratory Tests Test 10/03/18 05:05 White Blood Count 5.1 x10^3/uL (4.0-11.0) Red Blood Count 3.21 x10^6/uL (4.30-5.70) Hemoglobin 9.2 g/dL (13.0-17.5) Hematocrit 27.6 % (39.0-53.0) Mean Corpuscular Volume 86 fL (79-100) Mean Corpuscular Hemoglobin 29 pg (25-35) Mean Corpuscular Hemoglobin Concent 33 g/dL (31-37) Red Cell Distribution Width 20.1 % (11.5-14.5) Platelet Count 202 x10^3/uL (140-400) Neutrophils (%) (Auto) 82 % (31-73) Lymphocytes (%) (Auto) 9 % (24-48) Monocytes (%) (Auto) 8 % (0-9) Eosinophils (%) (Auto) 1 % (0-3) Basophils (%) (Auto) 1 % (0-3) Neutrophils # (Auto) 4.2 x10^3uL (1.8-7.7) Lymphocytes # (Auto) 0.5 x10^3/uL (1.0-4.8) Monocytes # (Auto) 0.4 x10^3/uL (0.0-1.1) Eosinophils # (Auto) 0.0 x10^3/uL (0.0-0.7) Basophils # (Auto) 0.0 x10^3/uL (0.0-0.2) Sodium Level 138 mmol/L (136-145) Potassium Level 4.0 mmol/L (3.5-5.1) Chloride Level 103 mmol/L (98-107) Carbon Dioxide Level 28 mmol/L (21-32) Anion Gap 7 (6-14) Blood Urea Nitrogen 13 mg/dL (8-26) Creatinine 1.1 mg/dL (0.7-1.3) Estimated GFR (Cockcroft-Gault) 68.8 BUN/Creatinine Ratio 12 (6-20) Glucose Level 104 mg/dL (70-99) Calcium Level 8.2 mg/dL (8.5-10.1) Total Bilirubin 0.5 mg/dL (0.2-1.0) Aspartate Amino Transf (AST/SGOT) 12 U/L (15-37) Alanine Aminotransferase (ALT/SGPT) 13 U/L (16-63) Alkaline Phosphatase 54 U/L (46-116) Total Protein 5.9 g/dL (6.4-8.2) Albumin 2.3 g/dL (3.4-5.0) Albumin/Globulin Ratio 0.6 (1.0-1.7) Review of Systems Review of Systems Complains of pain Assessment and Plan Assessmemt and Plan Problems Medical Problems: (1) Acute appendicitis Status: Acute (2) Anemia Status: Acute Appendicitis Lung cancer Plan He is going for laparoscopic appendectomy now Postoperatively is going to need wound care and when necessary pain meds Home meds DVT prophylaxis Full code Hope to discharge date Comment Review of Relevant I have reviewed the following items florencio (where applicable) has been applied. Labs Laboratory Tests Test 10/02/18 07:30 10/02/18 07:35 10/02/18 08:55 10/03/18 05:05 Sodium Level 136 mmol/L (136-145) 138 mmol/L (136-145) Potassium Level 4.4 mmol/L (3.5-5.1) 4.0 mmol/L (3.5-5.1) Chloride Level 99 mmol/L (98-107) 103 mmol/L (98-107) Carbon Dioxide Level 27 mmol/L (21-32) 28 mmol/L (21-32) Anion Gap 10 (6-14) 7 (6-14) Blood Urea Nitrogen 14 mg/dL (8-26) 13 mg/dL (8-26) Creatinine 1.0 mg/dL (0.7-1.3) 1.1 mg/dL (0.7-1.3) Estimated GFR (Cockcroft-Gault) 76.7 68.8 BUN/Creatinine Ratio 14 (6-20) 12 (6-20) Glucose Level 105 mg/dL (70-99) 104 mg/dL (70-99) Lactic Acid Level 1.9 mmol/L (0.4-2.0) Calcium Level 9.1 mg/dL (8.5-10.1) 8.2 mg/dL (8.5-10.1) Total Bilirubin 0.3 mg/dL (0.2-1.0) 0.5 mg/dL (0.2-1.0) Aspartate Amino Transf (AST/SGOT) 13 U/L (15-37) 12 U/L (15-37) Alanine Aminotransferase (ALT/SGPT) 18 U/L (16-63) 13 U/L (16-63) Alkaline Phosphatase 56 U/L (46-116) 54 U/L (46-116) Total Protein 6.5 g/dL (6.4-8.2) 5.9 g/dL (6.4-8.2) Albumin 2.8 g/dL (3.4-5.0) 2.3 g/dL (3.4-5.0) Albumin/Globulin Ratio 0.8 (1.0-1.7) 0.6 (1.0-1.7) Lipase 77 U/L (73-393) White Blood Count 8.9 x10^3/uL (4.0-11.0) 5.1 x10^3/uL (4.0-11.0) Red Blood Count 2.89 x10^6/uL (4.30-5.70) 3.21 x10^6/uL (4.30-5.70) Hemoglobin 8.4 g/dL (13.0-17.5) 9.2 g/dL (13.0-17.5) Hematocrit 24.8 % (39.0-53.0) 27.6 % (39.0-53.0) Mean Corpuscular Volume 86 fL (79-100) 86 fL (79-100) Mean Corpuscular Hemoglobin 29 pg (25-35) 29 pg (25-35) Mean Corpuscular Hemoglobin Concent 34 g/dL (31-37) 33 g/dL (31-37) Red Cell Distribution Width 20.3 % (11.5-14.5) 20.1 % (11.5-14.5) Platelet Count 290 x10^3/uL (140-400) 202 x10^3/uL (140-400) Neutrophils (%) (Auto) 82 % (31-73) 82 % (31-73) Lymphocytes (%) (Auto) 9 % (24-48) 9 % (24-48) Monocytes (%) (Auto) 8 % (0-9) 8 % (0-9) Eosinophils (%) (Auto) 0 % (0-3) 1 % (0-3) Basophils (%) (Auto) 1 % (0-3) 1 % (0-3) Neutrophils # (Auto) 7.3 x10^3uL (1.8-7.7) 4.2 x10^3uL (1.8-7.7) Lymphocytes # (Auto) 0.8 x10^3/uL (1.0-4.8) 0.5 x10^3/uL (1.0-4.8) Monocytes # (Auto) 0.7 x10^3/uL (0.0-1.1) 0.4 x10^3/uL (0.0-1.1) Eosinophils # (Auto) 0.0 x10^3/uL (0.0-0.7) 0.0 x10^3/uL (0.0-0.7) Basophils # (Auto) 0.0 x10^3/uL (0.0-0.2) 0.0 x10^3/uL (0.0-0.2) Platelet Estimate Adequate (ADEQUATE) Anisocytosis Mod Urine Collection Type Unknown Urine Color Yellow Urine Clarity Clear Urine pH 6.5 Urine Specific [place] 1.010 Urine Protein Negative mg/dL (NEG-TRACE) Urine Glucose (UA) Negative mg/dL (NEG) Urine Ketones (Stick) Negative mg/dL (NEG) Urine Blood Negative (NEG) Urine Nitrite Negative (NEG) Urine Bilirubin Negative (NEG) Urine Urobilinogen Dipstick 0.2 mg/dL (0.2 mg/dL) Urine Leukocyte Esterase Trace (NEG) Urine RBC Occ /HPF (0-2) Urine WBC Occ /HPF (0-4) Urine Squamous Epithelial Cells Occ /LPF Urine Bacteria 0 /HPF (0-FEW) Laboratory Tests Test 10/03/18 05:05 White Blood Count 5.1 x10^3/uL (4.0-11.0) Red Blood Count 3.21 x10^6/uL (4.30-5.70) Hemoglobin 9.2 g/dL (13.0-17.5) Hematocrit 27.6 % (39.0-53.0) Mean Corpuscular Volume 86 fL (79-100) Mean Corpuscular Hemoglobin 29 pg (25-35) Mean Corpuscular Hemoglobin Concent 33 g/dL (31-37) Red Cell Distribution Width 20.1 % (11.5-14.5) Platelet Count 202 x10^3/uL (140-400) Neutrophils (%) (Auto) 82 % (31-73) Lymphocytes (%) (Auto) 9 % (24-48) Monocytes (%) (Auto) 8 % (0-9) Eosinophils (%) (Auto) 1 % (0-3) Basophils (%) (Auto) 1 % (0-3) Neutrophils # (Auto) 4.2 x10^3uL (1.8-7.7) Lymphocytes # (Auto) 0.5 x10^3/uL (1.0-4.8) Monocytes # (Auto) 0.4 x10^3/uL (0.0-1.1) Eosinophils # (Auto) 0.0 x10^3/uL (0.0-0.7) Basophils # (Auto) 0.0 x10^3/uL (0.0-0.2) Sodium Level 138 mmol/L (136-145) Potassium Level 4.0 mmol/L (3.5-5.1) Chloride Level 103 mmol/L (98-107) Carbon Dioxide Level 28 mmol/L (21-32) Anion Gap 7 (6-14) Blood Urea Nitrogen 13 mg/dL (8-26) Creatinine 1.1 mg/dL (0.7-1.3) Estimated GFR (Cockcroft-Gault) 68.8 BUN/Creatinine Ratio 12 (6-20) Glucose Level 104 mg/dL (70-99) Calcium Level 8.2 mg/dL (8.5-10.1) Total Bilirubin 0.5 mg/dL (0.2-1.0) Aspartate Amino Transf (AST/SGOT) 12 U/L (15-37) Alanine Aminotransferase (ALT/SGPT) 13 U/L (16-63) Alkaline Phosphatase 54 U/L (46-116) Total Protein 5.9 g/dL (6.4-8.2) Albumin 2.3 g/dL (3.4-5.0) Albumin/Globulin Ratio 0.6 (1.0-1.7) Microbiology 10/02/18 Blood Culture - Preliminary, Resulted NO GROWTH AFTER 1 DAY Medications Current Medications Sodium Chloride 1,000 ml @ 1,000 mls/hr Q1H IV Last administered on 10/02/18at 07:51; Start 10/02/18 at 07:08; Stop 10/02/18 at 08:07; Status DC Ondansetron HCl (Zofran) 4 mg 1X ONCE IV ; Start 10/02/18 at 07:15; Stop 10/02/18 at 07:16; Status DC Morphine Sulfate (Morphine Sulfate) 4 mg 1X ONCE IV ; Start 10/02/18 at 07:15; Stop 10/02/18 at 07:16; Status DC Iohexol (Omnipaque 300 Mg/ml) 60 ml 1X ONCE IV ; Start 10/02/18 at 08:00; Stop 10/02/18 at 08:01; Status DC Iohexol (Omnipaque 300 Mg/ml) 75 ml 1X ONCE IV Last administered on 10/02/18at 08:40; Start 10/02/18 at 08:00; Stop 10/02/18 at 08:01; Status DC Info (CONTRAST GIVEN -- Rx MONITORING) 1 each PRN DAILY PRN MC SEE COMMENTS; Start 10/02/18 at 08:00; Stop 10/04/18 at 07:59 Piperacillin Sod/ Tazobactam Sod 3.375 gm/Sodium Chloride 50 ml @ 100 mls/hr 1X ONCE IV Last administered on 10/02/18at 09:55; Start 10/02/18 at 10:00; Stop 10/02/18 at 10:29; Status DC Metronidazole 100 ml @ 100 mls/hr 1X ONCE IV Last administered on 10/02/18at 14:04; Start 10/02/18 at 10:00; Stop 10/02/18 at 10:59; Status DC Sodium Chloride 1,000 ml @ 150 mls/hr Q6H40M IV Last administered on 10/03/18at 05:00; Start 10/02/18 at 11:00; Stop 10/03/18 at 10:59; Status DC Piperacillin Sod/ Tazobactam Sod 3.375 gm/Sodium Chloride 50 ml @ 100 mls/hr Q6HRS IV Last administered on 10/03/18at 12:18; Start 10/02/18 at 18:00 Ondansetron HCl (Zofran) 4 mg PRN Q6HRS PRN IV NAUSEA/VOMITING; Start 10/03/18 at 07:00; Stop 10/04/18 at 06:59 Morphine Sulfate (Morphine Sulfate) 1 mg PRN Q10MIN PRN IV SEVERE PAIN 7-10; Start 10/03/18 at 07:00; Stop 10/04/18 at 06:59 Ringer's Solution 1,000 ml @ 30 mls/hr Q24H IV Last administered on 10/03/18at 11:58; Start 10/03/18 at 07:00; Stop 10/03/18 at 18:59 Lidocaine HCl (Xylocaine-Mpf 1% 2ml Vial) 2 ml PRN 1X PRN ID PRIOR TO IV START; Start 10/03/18 at 07:00; Stop 10/04/18 at 06:59 Hydromorphone HCl (Dilaudid) 0.5 mg PRN Q10MIN PRN IV SEV PAIN, Second choice; Start 10/03/18 at 07:00; Stop 10/04/18 at 06:59 Prochlorperazine Edisylate (Compazine) 5 mg PACU PRN PRN IV NAUSEA, MRX1; Start 10/03/18 at 07:00; Stop 10/04/18 at 06:59 Amlodipine Besylate (Norvasc) 10 mg DAILY PO Last administered on 10/02/18at 18:02; Start 10/02/18 at 14:00 Propofol 20 ml @ As Directed STK-MED ONCE IV ; Start 10/03/18 at 09:39; Stop 10/03/18 at 09:40; Status DC Lidocaine HCl (Lidocaine Pf 2% Vial) 5 ml STK-MED ONCE .ROUTE ; Start 10/03/18 at 09:39; Stop 10/03/18 at 09:40; Status DC Ondansetron HCl (Zofran) 4 mg STK-MED ONCE .ROUTE ; Start 10/03/18 at 09:39; Stop 10/03/18 at 09:40; Status DC Dexamethasone Sodium Phosphate (Decadron) 4 mg STK-MED ONCE .ROUTE ; Start 10/03/18 at 09:39; Stop 10/03/18 at 09:40; Status DC Rocuronium [place] (Zemuron) 50 mg STK-MED ONCE .ROUTE ; Start 10/03/18 at 09:39; Stop 10/03/18 at 09:40; Status DC Fentanyl Citrate (Fentanyl 2ml Vial) 100 mcg STK-MED ONCE .ROUTE ; Start 10/03/18 at 09:39; Stop 10/03/18 at 09:40; Status DC Midazolam HCl (Versed) 2 mg STK-MED ONCE .ROUTE ; Start 10/03/18 at 09:39; Stop 10/03/18 at 09:40; Status DC Dexamethasone Sodium Phosphate (Decadron) 4 mg STK-MED ONCE .ROUTE ; Start 10/03/18 at 09:39; Stop 10/03/18 at 09:40; Status DC Succinylcholine Chloride (Anectine) 200 mg STK-MED ONCE .ROUTE ; Start 10/03/18 at 09:40; Stop 10/03/18 at 09:41; Status DC Bupivacaine HCl/ Epinephrine Bitart (Sensorcain-Mpf Epi 0.5%-[id number]) 30 ml STK-MED ONCE .ROUTE ; Start 10/03/18 at 11:01; Stop 10/03/18 at 12:01; Status DC Neostigmine Methylsulfate (Neostigmine Methylsulfate) 5 mg STK-MED ONCE .ROUTE ; Start 10/03/18 at 12:54; Stop 10/03/18 at 12:55; Status DC Glycopyrrolate (Robinul) 1 mg STK-MED ONCE .ROUTE ; Start 10/03/18 at 12:54; Stop 10/03/18 at 12:55; Status DC Active Scripts Active Reported Eliquis (Apixaban) 5 Mg Tablet 5 Mg PO BID resume sunday07/03/18 Amlodipine Besylate 10 Mg Tablet 10 Mg PO DAILY Allopurinol 100 Mg Tablet 100 Mg PO BID Vitals/I & O Vital Sign - Last 24 Hours 10/02/18 10/02/18 10/02/18 10/02/18 15:00 18:02 19:00 20:00 Temp 98.3 99.3 98.3 99.3 Pulse 69 69 76 Resp 18 18 B/P (MAP) 145/65 (91) 145/65 142/57 (85) Pulse Ox 99 96 O2 Delivery Room Air Room Air Room Air 10/02/18 10/03/18 10/03/18 10/03/18 23:01 03:00 07:00 08:00 Temp 98.6 99.6 99.1 98.6 99.6 99.1 Pulse 78 79 77 Resp 18 18 18 B/P (MAP) 142/53 (82) 138/50 (79) 133/58 (83) Pulse Ox 96 95 96 O2 Delivery Room Air Room Air Room Air Room Air 10/03/18 10/03/18 11:00 11:52 Temp 100.8 97.8 100.8 97.8 Pulse 79 77 Resp 16 B/P (MAP) 153/59 (90) 151/67 Pulse Ox 96 95 O2 Delivery Room Air Room Air Intake and Output 10/02/18 10/02/18 10/03/18 14:59 22:59 06:59 Intake Total 1270 ml 220 ml Balance 1270 ml 220 ml LARRY OLIVEIRA III DO Oct 03, 2018 13:03
[2018-10-03] MEDS ORDERED: SEVOFLURANE 61 TO 120 MINUTES. IH ONE (13:06)
[2018-10-03] MEDS ORDERED: KETOROLAC 30 MG/ML INJ FOR OR. INJ ONE (13:06)
[2018-10-03] MEDS ORDERED: PHENYLEPHRINE in 0.9% NACL PF 1 MG/10 ML SYRINGE. IV ONE (13:42)
[2018-10-03] MEDS ORDERED: 0.9 % SODIUM CHLORIDE 10 ML DISP.SYRIN. IV PRN (14:15)
--- NOTE | 2018-10-03 14:16 | PDOC4 ---
OPERATIVE NOTE Date: Date: Oct 03, 2018 Pre-Op Diagnosis: Appendicitis Post-Op Diagnosis: Perforated appendicitis with abscess and peritonitis Procedure Performed: laparoscopic appendectomy Surgeon: Paul Bradley Anesthesia Type: GETA plus local Blood Loss: 50 Specimans Obtained: Appendix, appendiceal stump Findings: perforated appendicitis with localized peritonitis and abscess Complications: none Operative Note: After obtaining informed consent, patient was taken to OR, induced under GETA and prepped in the usual fashion. 5 mm port placed umbilical and suprapubic, 12 port placed RUQ, all under laparoscopic guidance. Abdominal cavity was explored and otherwise unremarkable. Gallbladder and liver normal. Pt is morbidly obese, making procedure difficult. Extensive peritonitis and adherence in RLQ. Right colon and terminal ileum carefully, bluntly dissected out. Abscess noted in this area and evacuated out. Appendix identified coming off confluence of taenia. Mesoappendix divided by vascular load OLAYINKA. Given friability of appendix, it fractured near the base. The appendix was placed in bag, delivered and sent to pathology for evaluation. Cecum dissected out bluntly, allowing exposure of appendiceal base. This was grasped and OLAYINKA stapler used to seal base at level of cecum. Appendiceal stump placed in bag, delivered and sent to pathology for evaluation. Copious irrigation. No evidence of bleeding or other pathology. Ports removed without bleeding. Fascia closed with 0 vicryl. Skin repaired with 4 0 monocryl. Dressing placed. Patient tolerated procedure well and sent to PACU in stable condition. All counts correct. Wound class is dirty, 4. VIVIAN BRADLEY MD Oct 03, 2018 14:16
[2018-10-03] MEDS ORDERED: ENOXAPARIN 40 MG/0.4 ML SYRINGE. SQ SCH (15:00)
[2018-10-03] MEDS: IV RINGERS,LACTATED 1000ML 1,000 ML IV SCH (18:39)
[2018-10-04] MEDS: PIPERACILLIN/TAZOBACTAM 3.375 GM in IV NORMAL SALINE 50ML 50 ML IV SCH ×4 (00:05→18:33)
[2018-10-04 03:00] VITALS: BP 143/62
[2018-10-04] MEDS: IV RINGERS,LACTATED 1000ML 1,000 ML IV SCH ×2 (05:54→08:00)
[2018-10-04 07:00] VITALS: BP 140/67
[2018-10-04 07:18] LABS: BASO % 0 % (0-3); EOS % 0 % (0-3); HEMATOCRIT 27.3 % (39.0-53.0); HEMOGLOBIN 9.1 g/dL (13.0-17.5); LYMPH # 0.4 x10^3/uL (1.0-4.8); LYMPH % 7 % (24-48); MEAN CORPUSCULAR HEMOGLOBIN 29 pg (25-35); MEAN CORPUSCULAR HGB CONC 33 g/dL (31-37); MEAN CORPUSCULAR VOLUME 86 fL (79-100); MONO # 0.5 x10^3/uL (0.0-1.1); MONO % 9 % (0-9); NEUT # 4.7 x10^3uL (1.8-7.7); NEUT % 84 % (31-73); PLATELET COUNT 226 x10^3/uL (140-400); RED BLOOD COUNT 3.18 x10^6/uL (4.30-5.70); RED CELL DISTRIBUTION WIDTH 19.7 % (11.5-14.5); WHITE BLOOD COUNT 5.6 x10^3/uL (4.0-11.0)
[2018-10-04] MEDS ORDERED: ACETAMINOPHEN 500 MG TABLET PO PRN ×2 (08:15→14:15)
[2018-10-04] MEDS: ENOXAPARIN 40 MG/0.4 ML SYRINGE. SQ SCH (08:16)
[2018-10-04] MEDS: amLODIPine BESYLATE 10 MG TABLET PO SCH (08:17)
--- NOTE | 2018-10-04 08:39 | PDOC ---
SURGICAL PROGRESS NOTE Subjective Pt with c/o mild pain at RUQ incision, otherwise doing well, veronica diet, no pain in RLQ Vital Signs Vital Signs Date Time Temp Pulse Resp B/P (MAP) Pulse Ox O2 Delivery O2 Flow Rate FiO2 10/04/18 08:17 74 140/67 10/04/18 07:00 98.0 18 99 Room Air 98.0 10/04/18 03:00 2.0 I&O Intake and Output 10/04/18 07:00 Intake Total 4575 ml Output Total 50 ml Balance 4525 ml Intake Oral 600 ml IV Total 2250 ml Other 1725 ml Output Estimated Blood Loss 50 ml # Voids 2 General: Alert, Oriented X3, Cooperative, No acute distress Abdomen: Soft, No tenderness, Other (dressing c/d/i) Labs Laboratory Tests Test 10/02/18 08:55 10/03/18 05:05 10/04/18 06:05 Urine Collection Type Unknown Urine Color Yellow Urine Clarity Clear Urine pH 6.5 Urine Specific [place] 1.010 Urine Protein Negative mg/dL (NEG-TRACE) Urine Glucose (UA) Negative mg/dL (NEG) Urine Ketones (Stick) Negative mg/dL (NEG) Urine Blood Negative (NEG) Urine Nitrite Negative (NEG) Urine Bilirubin Negative (NEG) Urine Urobilinogen Dipstick 0.2 mg/dL (0.2 mg/dL) Urine Leukocyte Esterase Trace (NEG) Urine RBC Occ /HPF (0-2) Urine WBC Occ /HPF (0-4) Urine Squamous Epithelial Cells Occ /LPF Urine Bacteria 0 /HPF (0-FEW) White Blood Count 5.1 x10^3/uL (4.0-11.0) 5.6 x10^3/uL (4.0-11.0) Red Blood Count 3.21 x10^6/uL (4.30-5.70) 3.18 x10^6/uL (4.30-5.70) Hemoglobin 9.2 g/dL (13.0-17.5) 9.1 g/dL (13.0-17.5) Hematocrit 27.6 % (39.0-53.0) 27.3 % (39.0-53.0) Mean Corpuscular Volume 86 fL (79-100) 86 fL (79-100) Mean Corpuscular Hemoglobin 29 pg (25-35) 29 pg (25-35) Mean Corpuscular Hemoglobin Concent 33 g/dL (31-37) 33 g/dL (31-37) Red Cell Distribution Width 20.1 % (11.5-14.5) 19.7 % (11.5-14.5) Platelet Count 202 x10^3/uL (140-400) 226 x10^3/uL (140-400) Neutrophils (%) (Auto) 82 % (31-73) 84 % (31-73) Lymphocytes (%) (Auto) 9 % (24-48) 7 % (24-48) Monocytes (%) (Auto) 8 % (0-9) 9 % (0-9) Eosinophils (%) (Auto) 1 % (0-3) 0 % (0-3) Basophils (%) (Auto) 1 % (0-3) 0 % (0-3) Neutrophils # (Auto) 4.2 x10^3uL (1.8-7.7) 4.7 x10^3uL (1.8-7.7) Lymphocytes # (Auto) 0.5 x10^3/uL (1.0-4.8) 0.4 x10^3/uL (1.0-4.8) Monocytes # (Auto) 0.4 x10^3/uL (0.0-1.1) 0.5 x10^3/uL (0.0-1.1) Eosinophils # (Auto) 0.0 x10^3/uL (0.0-0.7) 0.0 x10^3/uL (0.0-0.7) Basophils # (Auto) 0.0 x10^3/uL (0.0-0.2) 0.0 x10^3/uL (0.0-0.2) Sodium Level 138 mmol/L (136-145) Potassium Level 4.0 mmol/L (3.5-5.1) Chloride Level 103 mmol/L (98-107) Carbon Dioxide Level 28 mmol/L (21-32) Anion Gap 7 (6-14) Blood Urea Nitrogen 13 mg/dL (8-26) Creatinine 1.1 mg/dL (0.7-1.3) Estimated GFR (Cockcroft-Gault) 68.8 BUN/Creatinine Ratio 12 (6-20) Glucose Level 104 mg/dL (70-99) Calcium Level 8.2 mg/dL (8.5-10.1) Total Bilirubin 0.5 mg/dL (0.2-1.0) Aspartate Amino Transf (AST/SGOT) 12 U/L (15-37) Alanine Aminotransferase (ALT/SGPT) 13 U/L (16-63) Alkaline Phosphatase 54 U/L (46-116) Total Protein 5.9 g/dL (6.4-8.2) Albumin 2.3 g/dL (3.4-5.0) Albumin/Globulin Ratio 0.6 (1.0-1.7) Laboratory Tests Test 10/04/18 06:05 White Blood Count 5.6 x10^3/uL (4.0-11.0) Red Blood Count 3.18 x10^6/uL (4.30-5.70) Hemoglobin 9.1 g/dL (13.0-17.5) Hematocrit 27.3 % (39.0-53.0) Mean Corpuscular Volume 86 fL (79-100) Mean Corpuscular Hemoglobin 29 pg (25-35) Mean Corpuscular Hemoglobin Concent 33 g/dL (31-37) Red Cell Distribution Width 19.7 % (11.5-14.5) Platelet Count 226 x10^3/uL (140-400) Neutrophils (%) (Auto) 84 % (31-73) Lymphocytes (%) (Auto) 7 % (24-48) Monocytes (%) (Auto) 9 % (0-9) Eosinophils (%) (Auto) 0 % (0-3) Basophils (%) (Auto) 0 % (0-3) Neutrophils # (Auto) 4.7 x10^3uL (1.8-7.7) Lymphocytes # (Auto) 0.4 x10^3/uL (1.0-4.8) Monocytes # (Auto) 0.5 x10^3/uL (0.0-1.1) Eosinophils # (Auto) 0.0 x10^3/uL (0.0-0.7) Basophils # (Auto) 0.0 x10^3/uL (0.0-0.2) Problem List Problems Medical Problems: (1) Acute appendicitis Status: Acute (2) Anemia Status: Acute Assessment/Plan s/p lap appendectomy appears to be doing well ADAT given peritonitis and inconsistent WBC, favor one more day observation and IV abx. High risk for abscess formation. d/w pt and pt's supportive VIVIAN BRADLEY MD Oct 04, 2018 08:39
--- NOTE | 2018-10-04 09:35 | PDOC ---
SUBJECTIVE Subjective S: Doing better, did well with surgery without bleeding, abscess cleaned out with appendectomy O: Physical exam: Gen.: Well-nourished and well-developed, resting in bed Lungs: Breathing comfortably with no evidence of respiratory distress Abdomen: Soft, much less tender, nondistended Skin: Warm and dry Psychiatric: Pleasant mood and affect Labs: White count 5.9, hemoglobin 9.1, platelets 226 Assessment and Plan: He is a 58-year-old man on chemotherapy adjuvantly for stage III lung cancer that has been resected, s/p appy 13 Jamar for acute appendicitis, doing well. Acute appendicitis: resected, on antibiotics, appreciate Dr Ohara's assistance History of PE and recurrent DVT: Would recommend full dose anticoagulation as soon as safe postoperatively Lung cancer: Can resume chemotherapy after he's Healed up postoperatively, likely after 2 wks Disposition: Per others, we will follow-up after discharge Thank you kindly, and please don't hesitate to call with further questions. OBJECTIVE Vital Signs Vital Signs Date Time Temp Pulse Resp B/P (MAP) Pulse Ox O2 Delivery O2 Flow Rate FiO2 10/04/18 08:17 74 140/67 10/04/18 07:00 98.0 74 18 140/67 (91) 99 Room Air 98.0 10/04/18 03:00 98.4 77 18 143/62 (89) 96 Nasal Cannula 2.0 98.4 10/03/18 23:00 98.3 74 18 141/58 (85) 96 Nasal Cannula 2.0 98.3 10/03/18 19:35 Room Air 10/03/18 18:57 75 20 99 Nasal Cannula 2.0 10/03/18 18:00 75 20 99 Nasal Cannula 2.0 10/03/18 17:00 75 20 151/60 (90) 99 Nasal Cannula 2.0 10/03/18 16:30 77 20 100 Nasal Cannula 2.0 10/03/18 16:00 77 20 137/53 (81) 100 Nasal Cannula 2.0 10/03/18 15:45 73 20 152/54 (86) 100 Nasal Cannula 2.0 10/03/18 15:30 73 20 140/57 (84) 99 Nasal Cannula 2.0 10/03/18 15:00 97.7 68 18 144/56 (85) 99 Nasal Cannula 2.0 97.7 10/03/18 14:59 97 70 20 134/53 94 Nasal Cannula 2 97.0 10/03/18 14:44 97.8 68 20 138/49 98 Room Air 97.8 10/03/18 14:29 97.8 68 18 147/45 100 Simple Mask 8 97.8 10/03/18 14:14 97.8 68 16 151/67 100 Simple Mask 8 97.8 10/03/18 11:52 97.8 77 16 151/67 95 Room Air 97.8 10/03/18 11:00 100.8 79 18 153/59 (90) 96 Room Air 100.8 I & O Intake and Output 10/04/18 07:00 Intake Total 4575 ml Output Total 50 ml Balance 4525 ml Intake Oral 600 ml IV Total 2250 ml Other 1725 ml Output Estimated Blood Loss 50 ml # Voids 2 COMMENT Lab Laboratory Tests Test 10/04/18 06:05 White Blood Count 5.6 x10^3/uL (4.0-11.0) Red Blood Count 3.18 x10^6/uL (4.30-5.70) Hemoglobin 9.1 g/dL (13.0-17.5) Hematocrit 27.3 % (39.0-53.0) Mean Corpuscular Volume 86 fL (79-100) Mean Corpuscular Hemoglobin 29 pg (25-35) Mean Corpuscular Hemoglobin Concent 33 g/dL (31-37) Red Cell Distribution Width 19.7 % (11.5-14.5) Platelet Count 226 x10^3/uL (140-400) Neutrophils (%) (Auto) 84 % (31-73) Lymphocytes (%) (Auto) 7 % (24-48) Monocytes (%) (Auto) 9 % (0-9) Eosinophils (%) (Auto) 0 % (0-3) Basophils (%) (Auto) 0 % (0-3) Neutrophils # (Auto) 4.7 x10^3uL (1.8-7.7) Lymphocytes # (Auto) 0.4 x10^3/uL (1.0-4.8) Monocytes # (Auto) 0.5 x10^3/uL (0.0-1.1) Eosinophils # (Auto) 0.0 x10^3/uL (0.0-0.7) Basophils # (Auto) 0.0 x10^3/uL (0.0-0.2) SHAYLA TANG MD Oct 04, 2018 09:35
--- NOTE | 2018-10-04 10:17 | NUR ---
SW following. Discussed with RN, pt had surgery yesterday. RN advised no SW needs and anticipates discharge tomorrow (10/05/18) due to appendix being partially perforated. SW will continue to follow.
[2018-10-04 11:00] VITALS: BP 134/62
--- NOTE | 2018-10-04 12:29 | PDOC ---
PROGRESS NOTES Chief Complaint Chief Complaint A/P: Acute appendicitis - will cont zosyn for coverage. sounds perforated per surgery Anemia - looks normocytic, not on bone marrow stimulating agents, likely 2/2 c hemo Pulmonary embolism - can hold eliquis in anticipation of surgery Adenocarcinoma of Lung - f/u with oncology HTN - cont home meds FEN - General diet PPX - eliquis FULL CODE Inpatient for acute appendicitis, likely d/c tomorrow History of Present Illness History of Present Illness Patient seen and examined with bedside. He has very little pain complaint today, just taking tylenol. No fever chills or SOB. Likely d/c tomorrow morning. Will need antibiotics for at least 5 days for perf Vitals Vitals Vital Signs Date Time Temp Pulse Resp B/P (MAP) Pulse Ox O2 Delivery O2 Flow Rate FiO2 10/04/18 11:00 98.3 74 18 134/62 (86) 96 Room Air 98.3 10/04/18 03:00 2.0 Physical Exam Physical Exam Neurologic: Alert and oriented X 3, normal motor function, normal sensory function, no focal deficits noted. [] Psychologic: Affect normal, judgement normal, mood normal. [] General: Alert, Oriented X3, Cooperative, No acute distress Abdomen: Soft, No tenderness, Other (dressing c/d/i) Labs LABS Laboratory Tests Test 10/04/18 06:05 White Blood Count 5.6 x10^3/uL (4.0-11.0) Red Blood Count 3.18 x10^6/uL (4.30-5.70) Hemoglobin 9.1 g/dL (13.0-17.5) Hematocrit 27.3 % (39.0-53.0) Mean Corpuscular Volume 86 fL (79-100) Mean Corpuscular Hemoglobin 29 pg (25-35) Mean Corpuscular Hemoglobin Concent 33 g/dL (31-37) Red Cell Distribution Width 19.7 % (11.5-14.5) Platelet Count 226 x10^3/uL (140-400) Neutrophils (%) (Auto) 84 % (31-73) Lymphocytes (%) (Auto) 7 % (24-48) Monocytes (%) (Auto) 9 % (0-9) Eosinophils (%) (Auto) 0 % (0-3) Basophils (%) (Auto) 0 % (0-3) Neutrophils # (Auto) 4.7 x10^3uL (1.8-7.7) Lymphocytes # (Auto) 0.4 x10^3/uL (1.0-4.8) Monocytes # (Auto) 0.5 x10^3/uL (0.0-1.1) Eosinophils # (Auto) 0.0 x10^3/uL (0.0-0.7) Basophils # (Auto) 0.0 x10^3/uL (0.0-0.2) Assessment and Plan Assessmemt and Plan Problems Medical Problems: (1) Acute appendicitis Status: Acute (2) Anemia Status: Acute Comment Review of Relevant I have reviewed the following items florencio (where applicable) has been applied. Labs Laboratory Tests Test 10/03/18 05:05 10/04/18 06:05 White Blood Count 5.1 x10^3/uL (4.0-11.0) 5.6 x10^3/uL (4.0-11.0) Red Blood Count 3.21 x10^6/uL (4.30-5.70) 3.18 x10^6/uL (4.30-5.70) Hemoglobin 9.2 g/dL (13.0-17.5) 9.1 g/dL (13.0-17.5) Hematocrit 27.6 % (39.0-53.0) 27.3 % (39.0-53.0) Mean Corpuscular Volume 86 fL (79-100) 86 fL (79-100) Mean Corpuscular Hemoglobin 29 pg (25-35) 29 pg (25-35) Mean Corpuscular Hemoglobin Concent 33 g/dL (31-37) 33 g/dL (31-37) Red Cell Distribution Width 20.1 % (11.5-14.5) 19.7 % (11.5-14.5) Platelet Count 202 x10^3/uL (140-400) 226 x10^3/uL (140-400) Neutrophils (%) (Auto) 82 % (31-73) 84 % (31-73) Lymphocytes (%) (Auto) 9 % (24-48) 7 % (24-48) Monocytes (%) (Auto) 8 % (0-9) 9 % (0-9) Eosinophils (%) (Auto) 1 % (0-3) 0 % (0-3) Basophils (%) (Auto) 1 % (0-3) 0 % (0-3) Neutrophils # (Auto) 4.2 x10^3uL (1.8-7.7) 4.7 x10^3uL (1.8-7.7) Lymphocytes # (Auto) 0.5 x10^3/uL (1.0-4.8) 0.4 x10^3/uL (1.0-4.8) Monocytes # (Auto) 0.4 x10^3/uL (0.0-1.1) 0.5 x10^3/uL (0.0-1.1) Eosinophils # (Auto) 0.0 x10^3/uL (0.0-0.7) 0.0 x10^3/uL (0.0-0.7) Basophils # (Auto) 0.0 x10^3/uL (0.0-0.2) 0.0 x10^3/uL (0.0-0.2) Sodium Level 138 mmol/L (136-145) Potassium Level 4.0 mmol/L (3.5-5.1) Chloride Level 103 mmol/L (98-107) Carbon Dioxide Level 28 mmol/L (21-32) Anion Gap 7 (6-14) Blood Urea Nitrogen 13 mg/dL (8-26) Creatinine 1.1 mg/dL (0.7-1.3) Estimated GFR (Cockcroft-Gault) 68.8 BUN/Creatinine Ratio 12 (6-20) Glucose Level 104 mg/dL (70-99) Calcium Level 8.2 mg/dL (8.5-10.1) Total Bilirubin 0.5 mg/dL (0.2-1.0) Aspartate Amino Transf (AST/SGOT) 12 U/L (15-37) Alanine Aminotransferase (ALT/SGPT) 13 U/L (16-63) Alkaline Phosphatase 54 U/L (46-116) Total Protein 5.9 g/dL (6.4-8.2) Albumin 2.3 g/dL (3.4-5.0) Albumin/Globulin Ratio 0.6 (1.0-1.7) Laboratory Tests Test 10/04/18 06:05 White Blood Count 5.6 x10^3/uL (4.0-11.0) Red Blood Count 3.18 x10^6/uL (4.30-5.70) Hemoglobin 9.1 g/dL (13.0-17.5) Hematocrit 27.3 % (39.0-53.0) Mean Corpuscular Volume 86 fL (79-100) Mean Corpuscular Hemoglobin 29 pg (25-35) Mean Corpuscular Hemoglobin Concent 33 g/dL (31-37) Red Cell Distribution Width 19.7 % (11.5-14.5) Platelet Count 226 x10^3/uL (140-400) Neutrophils (%) (Auto) 84 % (31-73) Lymphocytes (%) (Auto) 7 % (24-48) Monocytes (%) (Auto) 9 % (0-9) Eosinophils (%) (Auto) 0 % (0-3) Basophils (%) (Auto) 0 % (0-3) Neutrophils # (Auto) 4.7 x10^3uL (1.8-7.7) Lymphocytes # (Auto) 0.4 x10^3/uL (1.0-4.8) Monocytes # (Auto) 0.5 x10^3/uL (0.0-1.1) Eosinophils # (Auto) 0.0 x10^3/uL (0.0-0.7) Basophils # (Auto) 0.0 x10^3/uL (0.0-0.2) Microbiology 10/02/18 Blood Culture - Preliminary, Resulted NO GROWTH AFTER 2 DAYS Medications Current Medications Sodium Chloride 1,000 ml @ 1,000 mls/hr Q1H IV Last administered on 10/02/18at 07:51; Start 10/02/18 at 07:08; Stop 10/02/18 at 08:07; Status DC Ondansetron HCl (Zofran) 4 mg 1X ONCE IV ; Start 10/02/18 at 07:15; Stop 10/02/18 at 07:16; Status DC Morphine Sulfate (Morphine Sulfate) 4 mg 1X ONCE IV ; Start 10/02/18 at 07:15; Stop 10/02/18 at 07:16; Status DC Iohexol (Omnipaque 300 Mg/ml) 60 ml 1X ONCE IV ; Start 10/02/18 at 08:00; Stop 10/02/18 at 08:01; Status DC Iohexol (Omnipaque 300 Mg/ml) 75 ml 1X ONCE IV Last administered on 10/02/18at 08:40; Start 10/02/18 at 08:00; Stop 10/02/18 at 08:01; Status DC Info (CONTRAST GIVEN -- Rx MONITORING) 1 each PRN DAILY PRN MC SEE COMMENTS; Start 10/02/18 at 08:00; Stop 10/04/18 at 07:59; Status DC Piperacillin Sod/ Tazobactam Sod 3.375 gm/Sodium Chloride 50 ml @ 100 mls/hr 1X ONCE IV Last administered on 10/02/18at 09:55; Start 10/02/18 at 10:00; Stop 10/02/18 at 10:29; Status DC Metronidazole 100 ml @ 100 mls/hr 1X ONCE IV Last administered on 10/02/18at 14:04; Start 10/02/18 at 10:00; Stop 10/02/18 at 10:59; Status DC Sodium Chloride 1,000 ml @ 150 mls/hr Q6H40M IV Last administered on 10/03/18at 07:00; Start 10/02/18 at 11:00; Stop 10/03/18 at 10:59; Status DC Piperacillin Sod/ Tazobactam Sod 3.375 gm/Sodium Chloride 50 ml @ 100 mls/hr Q6HRS IV Last administered on 10/04/18at 12:01; Start 10/02/18 at 18:00 Ondansetron HCl (Zofran) 4 mg PRN Q6HRS PRN IV NAUSEA/VOMITING; Start 10/03/18 at 07:00; Stop 10/04/18 at 06:59; Status DC Morphine Sulfate (Morphine Sulfate) 1 mg PRN Q10MIN PRN IV SEVERE PAIN 7-10; Start 10/03/18 at 07:00; Stop 10/04/18 at 06:59; Status DC Ringer's Solution 1,000 ml @ 30 mls/hr Q24H IV Last administered on 10/03/18at 11:58; Start 10/03/18 at 07:00; Stop 10/03/18 at 18:59; Status DC Lidocaine HCl (Xylocaine-Mpf 1% 2ml Vial) 2 ml PRN 1X PRN ID PRIOR TO IV START; Start 10/03/18 at 07:00; Stop 10/04/18 at 06:59; Status DC Hydromorphone HCl (Dilaudid) 0.5 mg PRN Q10MIN PRN IV SEV PAIN, Second choice; Start 10/03/18 at 07:00; Stop 10/04/18 at 06:59; Status DC Prochlorperazine Edisylate (Compazine) 5 mg PACU PRN PRN IV NAUSEA, MRX1; Start 10/03/18 at 07:00; Stop 10/04/18 at 06:59; Status DC Amlodipine Besylate (Norvasc) 10 mg DAILY PO Last administered on 10/04/18at 08:17; Start 10/02/18 at 14:00 Propofol 20 ml @ As Directed STK-MED ONCE IV ; Start 10/03/18 at 09:39; Stop 10/03/18 at 09:40; Status DC Lidocaine HCl (Lidocaine Pf 2% Vial) 5 ml STK-MED ONCE .ROUTE ; Start 10/03/18 at 09:39; Stop 10/03/18 at 09:40; Status DC Ondansetron HCl (Zofran) 4 mg STK-MED ONCE .ROUTE ; Start 10/03/18 at 09:39; Stop 10/03/18 at 09:40; Status DC Dexamethasone Sodium Phosphate (Decadron) 4 mg STK-MED ONCE .ROUTE ; Start 10/03/18 at 09:39; Stop 10/03/18 at 09:40; Status DC Rocuronium [place] (Zemuron) 50 mg STK-MED ONCE .ROUTE ; Start 10/03/18 at 09:39; Stop 10/03/18 at 09:40; Status DC Fentanyl Citrate (Fentanyl 2ml Vial) 100 mcg STK-MED ONCE .ROUTE ; Start 10/03/18 at 09:39; Stop 10/03/18 at 09:40; Status DC Midazolam HCl (Versed) 2 mg STK-MED ONCE .ROUTE ; Start 10/03/18 at 09:39; Stop 10/03/18 at 09:40; Status DC Dexamethasone Sodium Phosphate (Decadron) 4 mg STK-MED ONCE .ROUTE ; Start 10/03/18 at 09:39; Stop 10/03/18 at 09:40; Status DC Succinylcholine Chloride (Anectine) 200 mg STK-MED ONCE .ROUTE ; Start 10/03/18 at 09:40; Stop 10/03/18 at 09:41; Status DC Bupivacaine HCl/ Epinephrine Bitart (Sensorcain-Mpf Epi 0.5%-1:[id number]) 30 ml STK-MED ONCE .ROUTE Last administered on 10/03/18at 12:47; Start 10/03/18 at 11:01; Stop 10/03/18 at 12:01; Status DC Neostigmine Methylsulfate (Neostigmine Methylsulfate) 5 mg STK-MED ONCE .ROUTE ; Start 10/03/18 at 12:54; Stop 10/03/18 at 12:55; Status DC Glycopyrrolate (Robinul) 1 mg STK-MED ONCE .ROUTE ; Start 10/03/18 at 12:54; Stop 10/03/18 at 12:55; Status DC Ketorolac Tromethamine (Toradol For Or Only) 30 mg STK-MED ONCE INJ ; Start 10/03/18 at 13:06; Stop 10/03/18 at 13:07; Status DC Sevoflurane (Ultane) 60 ml STK-MED ONCE IH ; Start 10/03/18 at 13:06; Stop 10/03/18 at 13:07; Status DC Phenylephrine HCl (PHENYLEPHRINE in 0.9% NACL PF) 1 mg STK-MED ONCE IV ; Start 10/03/18 at 13:42; Stop 10/03/18 at 13:43; Status DC Enoxaparin Sodium (Lovenox 40mg Syringe) 40 mg Q24H SQ ; Start 10/03/18 at 15:00; Stop 10/03/18 at 18:30; Status DC Sodium Chloride (Normal Saline Flush) 3 ml QSHIFT PRN IV AFTER MEDS AND BLOOD DRAWS; Start 10/03/18 at 14:15 Ringer's Solution 1,000 ml @ 100 mls/hr Q10H IV Last administered on 10/04/18at 08:00; Start 10/03/18 at 14:05 Acetaminophen/ Hydrocodone Bitart (Lortab 5/325) 1 tab PRN Q4HRS PRN PO MILD PAIN 1-3; Start 10/03/18 at 14:15 Ondansetron HCl (Zofran) 4 mg PRN Q6HRS PRN IV NAUESA, 1ST CHOICE; Start 10/03/18 at 14:15 Enoxaparin Sodium (Lovenox 40mg Syringe) 40 mg Q24H SQ Last administered on 10/04/18at 08:16; Start 10/04/18 at 09:00; Stop 10/18/18 at 08:59 Acetaminophen (Tylenol) 1,000 mg PRN Q12HR PRN PO MILD PAIN / TEMP Last administered on 10/04/18at 08:16; Start 10/04/18 at 08:15 Active Scripts Active Reported Eliquis (Apixaban) 5 Mg Tablet 5 Mg PO BID resume sunday07/03/18 Amlodipine Besylate 10 Mg Tablet 10 Mg PO DAILY Allopurinol 100 Mg Tablet 100 Mg PO BID Vitals/I & O Vital Sign - Last 24 Hours 10/03/18 10/03/18 10/03/18 10/03/18 14:14 14:29 14:44 14:59 Temp 97.8 97.8 97.8 97 97.8 97.8 97.8 97.0 Pulse 68 68 68 70 Resp 16 18 20 20 B/P (MAP) 151/67 147/45 138/49 134/53 Pulse Ox 100 100 98 94 O2 Delivery Simple Mask Simple Mask Room Air Nasal Cannula O2 Flow Rate 8 8 2 10/03/18 10/03/18 10/03/18 10/03/18 15:00 15:30 15:45 16:00 Temp 97.7 97.7 Pulse 68 73 73 77 Resp 18 20 20 20 B/P (MAP) 144/56 (85) 140/57 (84) 152/54 (86) 137/53 (81) Pulse Ox 99 99 100 100 O2 Delivery Nasal Cannula Nasal Cannula Nasal Cannula Nasal Cannula O2 Flow Rate 2.0 2.0 2.0 2.0 10/03/18 10/03/18 10/03/18 10/03/18 16:30 17:00 18:00 18:57 Pulse 77 75 75 75 Resp 20 20 20 20 B/P (MAP) 151/60 (90) Pulse Ox 100 99 99 99 O2 Delivery Nasal Cannula Nasal Cannula Nasal Cannula Nasal Cannula O2 Flow Rate 2.0 2.0 2.0 2.0 10/03/18 10/03/18 10/04/18 10/04/18 19:35 23:00 03:00 07:00 Temp 98.3 98.4 98.0 98.3 98.4 98.0 Pulse 74 77 74 Resp 18 18 18 B/P (MAP) 141/58 (85) 143/62 (89) 140/67 (91) Pulse Ox 96 96 99 O2 Delivery Room Air Nasal Cannula Nasal Cannula Room Air O2 Flow Rate 2.0 2.0 10/04/18 10/04/18 08:17 11:00 Temp 98.3 98.3 Pulse 74 74 Resp 18 B/P (MAP) 140/67 134/62 (86) Pulse Ox 96 O2 Delivery Room Air Intake and Output 10/03/18 10/03/18 10/04/18 14:59 22:59 06:59 Intake Total 1050 ml 240 ml 3285 ml Output Total 50 ml Balance 1000 ml 240 ml 3285 ml MICHAEL TRUONG MD Oct 04, 2018 12:29
[2018-10-04] MEDS: HYDROcodone/APAP 5/325MG 1 TAB TABLET PO PRN ×2 (14:19→23:03)
[2018-10-04 15:00] VITALS: BP 131/60
[2018-10-04 19:00] VITALS: BP 124/48
[2018-10-04 23:00] VITALS: BP 141/63
[2018-10-05] MEDS: IV RINGERS,LACTATED 1000ML 1,000 ML IV SCH ×2 (00:05→06:05)
[2018-10-05 03:00] VITALS: BP 139/63
[2018-10-05] MEDS: PIPERACILLIN/TAZOBACTAM 3.375 GM in IV NORMAL SALINE 50ML 50 ML IV SCH ×4 (06:00→12:42)
[2018-10-05 07:00] VITALS: BP 132/69
--- NOTE | 2018-10-05 08:17 | PDOC ---
PROGRESS NOTES Chief Complaint Chief Complaint A/P: Acute appendicitis - will cont zosyn for coverage. sounds perforated per surgery Anemia - looks normocytic, not on bone marrow stimulating agents, likely 2/2 c hemo Pulmonary embolism - can hold eliquis in anticipation of surgery Adenocarcinoma of Lung - f/u with oncology HTN - cont home meds FEN - General diet PPX - eliquis FULL CODE Inpatient for acute appendicitis, likely d/c tomorrow History of Present Illness History of Present Illness Patient seen and examined with bedside. He has very little pain complaint today, just taking tylenol. No fever chills or SOB. He has not had a BM, but is passing flatus. Says he will take miralax BID at home. WBC normal Will need antibiotics for at least 5 days for perf Vitals Vitals Vital Signs Date Time Temp Pulse Resp B/P (MAP) Pulse Ox O2 Delivery O2 Flow Rate FiO2 10/05/18 03:00 97.5 70 16 139/63 (88) 97 Room Air 97.5 Physical Exam Physical Exam Neurologic: Alert and oriented X 3, normal motor function, normal sensory function, no focal deficits noted. [] Psychologic: Affect normal, judgement normal, mood normal. [] General: Alert, Oriented X3, Cooperative, No acute distress Abdomen: Soft, No tenderness, Other (dressing c/d/i) Assessment and Plan Assessmemt and Plan Problems Medical Problems: (1) Acute appendicitis Status: Acute (2) Anemia Status: Acute Comment Review of Relevant I have reviewed the following items florencio (where applicable) has been applied. Labs Laboratory Tests Test 10/04/18 06:05 White Blood Count 5.6 x10^3/uL (4.0-11.0) Red Blood Count 3.18 x10^6/uL (4.30-5.70) Hemoglobin 9.1 g/dL (13.0-17.5) Hematocrit 27.3 % (39.0-53.0) Mean Corpuscular Volume 86 fL (79-100) Mean Corpuscular Hemoglobin 29 pg (25-35) Mean Corpuscular Hemoglobin Concent 33 g/dL (31-37) Red Cell Distribution Width 19.7 % (11.5-14.5) Platelet Count 226 x10^3/uL (140-400) Neutrophils (%) (Auto) 84 % (31-73) Lymphocytes (%) (Auto) 7 % (24-48) Monocytes (%) (Auto) 9 % (0-9) Eosinophils (%) (Auto) 0 % (0-3) Basophils (%) (Auto) 0 % (0-3) Neutrophils # (Auto) 4.7 x10^3uL (1.8-7.7) Lymphocytes # (Auto) 0.4 x10^3/uL (1.0-4.8) Monocytes # (Auto) 0.5 x10^3/uL (0.0-1.1) Eosinophils # (Auto) 0.0 x10^3/uL (0.0-0.7) Basophils # (Auto) 0.0 x10^3/uL (0.0-0.2) Microbiology 10/02/18 Blood Culture - Preliminary, Resulted NO GROWTH AFTER 3 DAYS 10/02/18 Urine Culture - Final, Complete 10/02/18 Urine Culture Result 1 (JORGE) - Final, Complete Medications Current Medications Sodium Chloride 1,000 ml @ 1,000 mls/hr Q1H IV Last administered on 10/02/18at 07:51; Start 10/02/18 at 07:08; Stop 10/02/18 at 08:07; Status DC Ondansetron HCl (Zofran) 4 mg 1X ONCE IV ; Start 10/02/18 at 07:15; Stop 10/02/18 at 07:16; Status DC Morphine Sulfate (Morphine Sulfate) 4 mg 1X ONCE IV ; Start 10/02/18 at 07:15; Stop 10/02/18 at 07:16; Status DC Iohexol (Omnipaque 300 Mg/ml) 60 ml 1X ONCE IV ; Start 10/02/18 at 08:00; Stop 10/02/18 at 08:01; Status DC Iohexol (Omnipaque 300 Mg/ml) 75 ml 1X ONCE IV Last administered on 10/02/18at 08:40; Start 10/02/18 at 08:00; Stop 10/02/18 at 08:01; Status DC Info (CONTRAST GIVEN -- Rx MONITORING) 1 each PRN DAILY PRN MC SEE COMMENTS; Start 10/02/18 at 08:00; Stop 10/04/18 at 07:59; Status DC Piperacillin Sod/ Tazobactam Sod 3.375 gm/Sodium Chloride 50 ml @ 100 mls/hr 1X ONCE IV Last administered on 10/02/18at 09:55; Start 10/02/18 at 10:00; Stop 10/02/18 at 10:29; Status DC Metronidazole 100 ml @ 100 mls/hr 1X ONCE IV Last administered on 10/02/18at 14:04; Start 10/02/18 at 10:00; Stop 10/02/18 at 10:59; Status DC Sodium Chloride 1,000 ml @ 150 mls/hr Q6H40M IV Last administered on 10/03/18at 07:00; Start 10/02/18 at 11:00; Stop 10/03/18 at 10:59; Status DC Piperacillin Sod/ Tazobactam Sod 3.375 gm/Sodium Chloride 50 ml @ 100 mls/hr Q6HRS IV Last administered on 10/05/18at 06:00; Start 10/02/18 at 18:00 Ondansetron HCl (Zofran) 4 mg PRN Q6HRS PRN IV NAUSEA/VOMITING; Start 10/03/18 at 07:00; Stop 10/04/18 at 06:59; Status DC Morphine Sulfate (Morphine Sulfate) 1 mg PRN Q10MIN PRN IV SEVERE PAIN 7-10; Start 10/03/18 at 07:00; Stop 10/04/18 at 06:59; Status DC Ringer's Solution 1,000 ml @ 30 mls/hr Q24H IV Last administered on 10/03/18at 11:58; Start 10/03/18 at 07:00; Stop 10/03/18 at 18:59; Status DC Lidocaine HCl (Xylocaine-Mpf 1% 2ml Vial) 2 ml PRN 1X PRN ID PRIOR TO IV START; Start 10/03/18 at 07:00; Stop 10/04/18 at 06:59; Status DC Hydromorphone HCl (Dilaudid) 0.5 mg PRN Q10MIN PRN IV SEV PAIN, Second choice; Start 10/03/18 at 07:00; Stop 10/04/18 at 06:59; Status DC Prochlorperazine Edisylate (Compazine) 5 mg PACU PRN PRN IV NAUSEA, MRX1; Start 10/03/18 at 07:00; Stop 10/04/18 at 06:59; Status DC Amlodipine Besylate (Norvasc) 10 mg DAILY PO Last administered on 10/04/18at 08:17; Start 10/02/18 at 14:00 Propofol 20 ml @ As Directed STK-MED ONCE IV ; Start 10/03/18 at 09:39; Stop 10/03/18 at 09:40; Status DC Lidocaine HCl (Lidocaine Pf 2% Vial) 5 ml STK-MED ONCE .ROUTE ; Start 10/03/18 at 09:39; Stop 10/03/18 at 09:40; Status DC Ondansetron HCl (Zofran) 4 mg STK-MED ONCE .ROUTE ; Start 10/03/18 at 09:39; Stop 10/03/18 at 09:40; Status DC Dexamethasone Sodium Phosphate (Decadron) 4 mg STK-MED ONCE .ROUTE ; Start 10/03/18 at 09:39; Stop 10/03/18 at 09:40; Status DC Rocuronium [place] (Zemuron) 50 mg STK-MED ONCE .ROUTE ; Start 10/03/18 at 09:39; Stop 10/03/18 at 09:40; Status DC Fentanyl Citrate (Fentanyl 2ml Vial) 100 mcg STK-MED ONCE .ROUTE ; Start 10/03/18 at 09:39; Stop 10/03/18 at 09:40; Status DC Midazolam HCl (Versed) 2 mg STK-MED ONCE .ROUTE ; Start 10/03/18 at 09:39; Stop 10/03/18 at 09:40; Status DC Dexamethasone Sodium Phosphate (Decadron) 4 mg STK-MED ONCE .ROUTE ; Start 10/03/18 at 09:39; Stop 10/03/18 at 09:40; Status DC Succinylcholine Chloride (Anectine) 200 mg STK-MED ONCE .ROUTE ; Start 10/03/18 at 09:40; Stop 10/03/18 at 09:41; Status DC Bupivacaine HCl/ Epinephrine Bitart (Sensorcain-Mpf Epi 0.5%-1:273134) 30 ml STK-MED ONCE .ROUTE Last administered on 10/03/18at 12:47; Start 10/03/18 at 11:01; Stop 10/03/18 at 12:01; Status DC Neostigmine Methylsulfate (Neostigmine Methylsulfate) 5 mg STK-MED ONCE .ROUTE ; Start 10/03/18 at 12:54; Stop 10/03/18 at 12:55; Status DC Glycopyrrolate (Robinul) 1 mg STK-MED ONCE .ROUTE ; Start 10/03/18 at 12:54; Stop 10/03/18 at 12:55; Status DC Ketorolac Tromethamine (Toradol For Or Only) 30 mg STK-MED ONCE INJ ; Start 10/03/18 at 13:06; Stop 10/03/18 at 13:07; Status DC Sevoflurane (Ultane) 60 ml STK-MED ONCE IH ; Start 10/03/18 at 13:06; Stop 10/03/18 at 13:07; Status DC Phenylephrine HCl (PHENYLEPHRINE in 0.9% NACL PF) 1 mg STK-MED ONCE IV ; Start 10/03/18 at 13:42; Stop 10/03/18 at 13:43; Status DC Enoxaparin Sodium (Lovenox 40mg Syringe) 40 mg Q24H SQ ; Start 10/03/18 at 15:00; Stop 10/03/18 at 18:30; Status DC Sodium Chloride (Normal Saline Flush) 3 ml QSHIFT PRN IV AFTER MEDS AND BLOOD DRAWS; Start 10/03/18 at 14:15 Ringer's Solution 1,000 ml @ 100 mls/hr Q10H IV Last administered on 10/05/18at 00:05; Start 10/03/18 at 14:05 Acetaminophen/ Hydrocodone Bitart (Lortab 5/325) 1 tab PRN Q4HRS PRN PO MILD PAIN 1-3 Last administered on 10/04/18at 23:03; Start 10/03/18 at 14:15 Ondansetron HCl (Zofran) 4 mg PRN Q6HRS PRN IV NAUESA, 1ST CHOICE; Start 10/03/18 at 14:15 Enoxaparin Sodium (Lovenox 40mg Syringe) 40 mg Q24H SQ Last administered on 10/04/18at 08:16; Start 10/04/18 at 09:00; Stop 10/18/18 at 08:59 Acetaminophen (Tylenol) 1,000 mg PRN Q12HR PRN PO MILD PAIN / TEMP Last administered on 10/04/18at 08:16; Start 10/04/18 at 08:15; Stop 10/04/18 at 14:14; Status DC Acetaminophen (Tylenol) 1,000 mg PRN Q6HRS PRN PO MILD PAIN / TEMP; Start 10/04/18 at 14:15; Stop 10/07/18 at 14:00 Active Scripts Active Reported Eliquis (Apixaban) 5 Mg Tablet 5 Mg PO BID resume sunday07/03/18 Amlodipine Besylate 10 Mg Tablet 10 Mg PO DAILY Allopurinol 100 Mg Tablet 100 Mg PO BID Vitals/I & O Vital Sign - Last 24 Hours 10/04/18 10/04/18 10/04/18 10/04/18 11:00 14:19 15:00 19:00 Temp 98.3 97.9 98.1 98.3 97.9 98.1 Pulse 74 77 69 Resp 18 18 18 B/P (MAP) 134/62 (86) 131/60 (83) 124/48 (73) Pulse Ox 96 97 96 O2 Delivery Room Air Room Air Room Air Room Air 10/04/18 10/04/18 10/04/18 10/05/18 19:45 23:00 23:03 00:03 Temp 97.6 97.6 Pulse 71 Resp 18 20 20 B/P (MAP) 141/63 (89) Pulse Ox 96 O2 Delivery Room Air Room Air Room Air Room Air 10/05/18 03:00 Temp 97.5 97.5 Pulse 70 Resp 16 B/P (MAP) 139/63 (88) Pulse Ox 97 O2 Delivery Room Air Intake and Output 10/04/18 10/04/18 10/05/18 14:59 22:59 06:59 Intake Total 520 ml 400 ml 3040 ml Balance 520 ml 400 ml 3040 ml MICHAEL TRUONG MD Oct 05, 2018 08:17
[2018-10-05] MEDS: ENOXAPARIN 40 MG/0.4 ML SYRINGE. SQ SCH (08:28)
[2018-10-05] MEDS: HYDROcodone/APAP 5/325MG 1 TAB TABLET PO PRN (08:29)
[2018-10-05] MEDS: amLODIPine BESYLATE 10 MG TABLET PO SCH (08:30)
[2018-10-05] MEDS ORDERED: POLYETHYLENE GLYCOL 3350 17 GM PACKET. PO SCH (09:00)
--- NOTE | 2018-10-05 09:03 | PDOC ---
SURGICAL PROGRESS NOTE Subjective Alexsander for Dr Ohara c/o constipation uses miralax at home Vital Signs Vital Signs Date Time Temp Pulse Resp B/P (MAP) Pulse Ox O2 Delivery O2 Flow Rate FiO2 10/05/18 08:30 74 132/69 10/05/18 08:29 20 Room Air 10/05/18 07:00 98.0 97 98.0 I&O Intake and Output 10/05/18 07:00 Intake Total 3960 ml Balance 3960 ml Intake Oral 1560 ml IV Total 1200 ml Other 1200 ml # Voids 2 PATIENT HAS A ORTIZ: No General: Alert, No acute distress Abdomen: Soft, Other (incisions c/d) Labs Laboratory Tests Test 10/04/18 06:05 White Blood Count 5.6 x10^3/uL (4.0-11.0) Red Blood Count 3.18 x10^6/uL (4.30-5.70) Hemoglobin 9.1 g/dL (13.0-17.5) Hematocrit 27.3 % (39.0-53.0) Mean Corpuscular Volume 86 fL (79-100) Mean Corpuscular Hemoglobin 29 pg (25-35) Mean Corpuscular Hemoglobin Concent 33 g/dL (31-37) Red Cell Distribution Width 19.7 % (11.5-14.5) Platelet Count 226 x10^3/uL (140-400) Neutrophils (%) (Auto) 84 % (31-73) Lymphocytes (%) (Auto) 7 % (24-48) Monocytes (%) (Auto) 9 % (0-9) Eosinophils (%) (Auto) 0 % (0-3) Basophils (%) (Auto) 0 % (0-3) Neutrophils # (Auto) 4.7 x10^3uL (1.8-7.7) Lymphocytes # (Auto) 0.4 x10^3/uL (1.0-4.8) Monocytes # (Auto) 0.5 x10^3/uL (0.0-1.1) Eosinophils # (Auto) 0.0 x10^3/uL (0.0-0.7) Basophils # (Auto) 0.0 x10^3/uL (0.0-0.2) CBC PND Problem List Problems Medical Problems: (1) Acute appendicitis Status: Acute (2) Anemia Status: Acute Assessment/Plan POD 2 l/s appy check WBC suppository resume stool softener YULIET MARY MD Oct 05, 2018 09:03
[2018-10-05 09:13] LABS: BASO % 1 % (0-3); EOS % 1 % (0-3); HEMATOCRIT 26.6 % (39.0-53.0); HEMOGLOBIN 8.8 g/dL (13.0-17.5); LYMPH # 0.7 x10^3/uL (1.0-4.8); LYMPH % 18 % (24-48); MEAN CORPUSCULAR HEMOGLOBIN 29 pg (25-35); MEAN CORPUSCULAR HGB CONC 33 g/dL (31-37); MEAN CORPUSCULAR VOLUME 86 fL (79-100); MONO # 0.4 x10^3/uL (0.0-1.1); MONO % 11 % (0-9); NEUT # 2.9 x10^3uL (1.8-7.7); NEUT % 70 % (31-73); PLATELET COUNT 244 x10^3/uL (140-400); RED BLOOD COUNT 3.07 x10^6/uL (4.30-5.70); RED CELL DISTRIBUTION WIDTH 19.8 % (11.5-14.5); WHITE BLOOD COUNT 4.1 x10^3/uL (4.0-11.0)
[2018-10-05] MEDS ORDERED: BISACODYL 10 MG SUPP.RECT. PR PRN (09:15)
[2018-10-05 11:00] VITALS: BP 162/74
[2018-10-05] MEDS ORDERED: AMOX1TAB61 PO (12:09)
--- NOTE | 2018-10-05 12:16 | PDOC3 ---
Discharge Summary Visit Information Date of Admission: Oct 02, 2018 Date of Discharge: Oct 05, 2018 Admitting Diagnosis: Perforated appendicitis, Lung cancer Final Diagnosis Problems Medical Problems: (1) Acute appendicitis Status: Acute (2) Anemia Status: Acute Brief Hospital Course Allergies Allergies Coded Allergies Type Severity Reaction Last Updated Verified fentanyl Adverse Reaction Intermediate 08/08/18 Yes Vital Signs Vital Signs Date Time Temp Pulse Resp B/P (MAP) Pulse Ox O2 Delivery O2 Flow Rate FiO2 10/05/18 11:00 97.9 75 18 162/74 (103) 96 Room Air 97.9 Lab Results Laboratory Tests Test 10/04/18 06:05 10/05/18 08:45 White Blood Count 5.6 x10^3/uL (4.0-11.0) 4.1 x10^3/uL (4.0-11.0) Red Blood Count 3.18 x10^6/uL (4.30-5.70) 3.07 x10^6/uL (4.30-5.70) Hemoglobin 9.1 g/dL (13.0-17.5) 8.8 g/dL (13.0-17.5) Hematocrit 27.3 % (39.0-53.0) 26.6 % (39.0-53.0) Mean Corpuscular Volume 86 fL (79-100) 86 fL (79-100) Mean Corpuscular Hemoglobin 29 pg (25-35) 29 pg (25-35) Mean Corpuscular Hemoglobin Concent 33 g/dL (31-37) 33 g/dL (31-37) Red Cell Distribution Width 19.7 % (11.5-14.5) 19.8 % (11.5-14.5) Platelet Count 226 x10^3/uL (140-400) 244 x10^3/uL (140-400) Neutrophils (%) (Auto) 84 % (31-73) 70 % (31-73) Lymphocytes (%) (Auto) 7 % (24-48) 18 % (24-48) Monocytes (%) (Auto) 9 % (0-9) 11 % (0-9) Eosinophils (%) (Auto) 0 % (0-3) 1 % (0-3) Basophils (%) (Auto) 0 % (0-3) 1 % (0-3) Neutrophils # (Auto) 4.7 x10^3uL (1.8-7.7) 2.9 x10^3uL (1.8-7.7) Lymphocytes # (Auto) 0.4 x10^3/uL (1.0-4.8) 0.7 x10^3/uL (1.0-4.8) Monocytes # (Auto) 0.5 x10^3/uL (0.0-1.1) 0.4 x10^3/uL (0.0-1.1) Eosinophils # (Auto) 0.0 x10^3/uL (0.0-0.7) 0.0 x10^3/uL (0.0-0.7) Basophils # (Auto) 0.0 x10^3/uL (0.0-0.2) 0.0 x10^3/uL (0.0-0.2) Laboratory Tests Test 10/05/18 08:45 White Blood Count 4.1 x10^3/uL (4.0-11.0) Red Blood Count 3.07 x10^6/uL (4.30-5.70) Hemoglobin 8.8 g/dL (13.0-17.5) Hematocrit 26.6 % (39.0-53.0) Mean Corpuscular Volume 86 fL (79-100) Mean Corpuscular Hemoglobin 29 pg (25-35) Mean Corpuscular Hemoglobin Concent 33 g/dL (31-37) Red Cell Distribution Width 19.8 % (11.5-14.5) Platelet Count 244 x10^3/uL (140-400) Neutrophils (%) (Auto) 70 % (31-73) Lymphocytes (%) (Auto) 18 % (24-48) Monocytes (%) (Auto) 11 % (0-9) Eosinophils (%) (Auto) 1 % (0-3) Basophils (%) (Auto) 1 % (0-3) Neutrophils # (Auto) 2.9 x10^3uL (1.8-7.7) Lymphocytes # (Auto) 0.7 x10^3/uL (1.0-4.8) Monocytes # (Auto) 0.4 x10^3/uL (0.0-1.1) Eosinophils # (Auto) 0.0 x10^3/uL (0.0-0.7) Basophils # (Auto) 0.0 x10^3/uL (0.0-0.2) Brief Hospital Course Mr Gavin is a 58yo m w/ PMHx 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 He was initially diagnosed by biopsy on 04/04/2018 with lung cancer. He was started on adjuvant chemotherapy with cisplatin and vinorelbine in 06/2018. He has required recurrent dose delays due to neutropenia with cycle #1 and has also had a bout of appendicitis previously managed medically with antibiotics. In ED noted with tender periumbilical area radiating to RLQ and to right flank, which is new for him. He was due for chemotherapy today. He has associated nausea and notably has subjective fever and chills. Anemic on CBC, no leukocytosis. General surgery consulted from ED upon CT findings consistent with appendicitis. To OR on 10/03/18 with findings of some perforation and peritonitis with abscess. Continued on antibiotics for an additional 2 days. Did have some constipation, was passing flatus well, Discharged on 7 days of augmentin. Seen by his oncologist to recommend possible continuation in 2 weeks of chemo A/P: Acute appendicitis - perforated, d/c on augmentin Anemia - looks normocytic, not on bone marrow stimulating agents, likely 2/2 chemo Pulmonary embolism - restart eliquis Adenocarcinoma of Lung - f/u with oncology HTN - cont home meds Greater than 30 minutes spent on dc Discharge Information Condition at Discharge: Improved Follow Up: Weeks (2) Disposition/Orders: D/C to Home Scheduled Allopurinol (Allopurinol) 100 Mg Tablet, 100 MG PO BID, (Reported) Entered as Reported by: DEREK ASENCIO on 12/01/172024 Last Action: HELD on 10/02/18 135 by LUIS URIBE MD Amlodipine Besylate (Amlodipine Besylate) 10 Mg Tablet, 10 MG PO DAILY for HTN, (Reported) Entered as Reported by: DEREK ASENCIO on 12/01/172025 Last Action: Continued on 10/02/18 1350 by LUIS URIBE MD Amoxicillin/Potassium Clav (Augmentin 875-125 Tablet) 1 Each Tablet, 1 TAB PO BID for Appendicitis for 7 Days, #14 Prescribed by: MICHAEL TRUONG MD on 10/05/18 1209 Apixaban (Eliquis) 5 Mg Tablet, 5 MG PO BID for pulmonary emboli/DVT, (Reported) resume sunday morning 07/03/18 Entered as Reported by: JULIANA SALTER on 12/05/17 3656 Last Action: HELD on 10/02/18 1350 by MD DIONNE SU CHRISTOPHER S MD Oct 05, 2018 12:16
[2018-10-05] MEDS ORDERED: HEPARIN PF 500 UNIT/5 ML DISP.SYRIN. IV ONE (14:00)
--- NOTE | 2018-10-05 14:49 | NUR ---
Discharge teaching completed. Trey-cath flushed with heparin flush and un-accessed without difficulty. Pt states he understands his follow-up instructions and discharge teaching and home medications. He has Rx for augmentin in hand. He was escorted out via w/c by staff with spouse present. Discharged to home with family.
--- NOTE | 2018-10-07 16:05 | PATHOLOGY ---
[facility] Accession Number: [id number] . 01 Material submitted: . PART A: appendix - APPENDIX PART B: appendix - APPENDOCELE STUMP . 01 Clinical history: . Acute appendicitis . 02 Diagnosis: A. Appendix, appendectomy: - Acute appendicitis and periappendicitis. . B. "Appendocele stump", removal: - Portion of appendix with moderate acute and chronic inflammation. . (SKM:shawna; 10/07/2018) JESSICAR/10/07/2018 . 02 Electronically signed: . Cruz Hickey MD, Pathologist NPI- [id number] . 01 Gross description: . A. The specimen is received in formalin, labeled "Gavin, Jaylon, appendix" and consists of an appendix measuring 4.5 cm in length and up to 1.6 cm in diameter with mesoappendix measuring up to 1.6 cm thick. The serosa is quiles-guy to hemorrhagic and partially encased with adhesions. The probable proximal margin is inked black. Sectioning reveals a pinpoint lumen with partial fibrous obliteration of the tip. No discrete fecaliths or mucosal lesions are identified. Phlebotomy Specialist sections are submitted in A1-A2. . B. The specimen is received in formalin, labeled "Gavin, Jaylon, appendocele stump" and consists of a linear stapled segment of pink-guy tissue measuring 2.3 x 0.5 x 0.3 cm. Minimal tissue is able to be removed due to the extensive stapling. This tissue is shaved off and submitted in B1. (SDY; 10/04/2018) SYU/SYU . 02 Pathologist provided ICD-10: K35.80, K36 . 02 CPT . 510142, 758468 Specimen Comment: A courtesy copy of this report has been sent to Specimen Comment: [phone], . Specimen Comment: Report sent to and Performed at: 01 [facility] [address] [place] [id number] MD Santiago Erickson MD Phone: [phone] Performed at: [address] [id number] MD Ifeanyi Schmidt MD Phone: [phone]
== END 2018-10-05 14:45 | disposition home or self-care (01) | DRG 338 ==
LOC: ER 06:44 → 4 NORTH 09:49
PROVIDERS: ADMIT Internal Medicine; ATTEND Internal Medicine
PROC: 0DTJ4ZZ Resection of Appendix, Percutaneous Endoscopic Approach (ICD-10-PCS; principal; 2018-10-03 12:00)
DX: K35.33 Acute appendicitis with perforation, localized peritonitis, and gangrene, with abscess (principal); E43 Unspecified severe protein-calorie malnutrition; C34.12 Malignant neoplasm of upper lobe, left bronchus or lung; D70.9 Neutropenia, unspecified; D64.81 Anemia due to antineoplastic chemotherapy; E66.01 Morbid (severe) obesity due to excess calories; I10 Essential (primary) hypertension; M10.9 Gout, unspecified; K59.00 Constipation, unspecified; T45.1X5A Adverse effect of antineoplastic and immunosuppressive drugs, initial encounter; Y92.89 Other specified places as the place of occurrence of the external cause; Z85.118 Personal history of other malignant neoplasm of bronchus and lung; Z86.711 Personal history of pulmonary embolism; Z86.718 Personal history of other venous thrombosis and embolism; Z87.19 Personal history of other diseases of the digestive system; Z87.891 Personal history of nicotine dependence; Z92.21 Personal history of antineoplastic chemotherapy; Z80.0 Family history of malignant neoplasm of digestive organs; Z80.42 Family history of malignant neoplasm of prostate; Z88.8 Allergy status to other drugs, medicaments and biological substances; Z87.81 Personal history of (healed) traumatic fracture; Z68.32 Body mass index [BMI] 32.0-32.9, adult
CPT/HCPCS: 36415; 74177; 80053; 81001; 83605; 83690; 85025; 87040; 87086; 88304; 96361; 96365; A7015; J0330; J1100; J1650; J1885; J2001; J2250; J2370; J2405; J2543; J2704; J2710; J3010; J3490; J7030; J7120; Q9967; 99285-25

== ENCOUNTER → 2018-12-05 | Outpatient (CLI) | payer BC ==
[~2018-12-05] MED LIST changes: +AMOX1TAB61 PO
--- NOTE | 2018-12-05 11:21 | CARD ---
MR#: [id number] Date of Study: 12/05/2018 Ordering Physician: CATHY PAUL, Referring Physician: CATHY PAUL, Tech: Waleska Mulligan RDCS APPROVED REPORT EXAM: Two-dimensional and M-mode echocardiogram with Doppler and color Doppler. Other Information Quality : AverageHR: 65bpm Rhythm : NSR INDICATION Murmur 2D DIMENSIONS RVDd3.7 (2.9-3.5cm)Left Atrium(2D)4.2 (1.6-4.0cm) IVSd1.1 (0.7-1.1cm)Aortic Root(2D)3.2 (2.0-3.7cm) LVDd5.2 (3.9-5.9cm)LVOT Diameter2.1 (1.8-2.4cm) PWd1.0 (0.7-1.1cm)LVDs3.6 (2.5-4.0cm) FS (%) 30.6 %SV75.5 ml LVEF(%)57.7 (>50%) M-Mode DIMENSIONS Left Atrium(MM)4.24 (2.5-4.0cm)Aortic Root3.43 (2.2-3.7cm) Aortic Valve AoV Peak Jaycob.130.3cm/sAoV VTI28.6cm AO Peak GR.6.8mmHgLVOT Peak Jaycob.102.0cm/s AO Mean GR.4mmHgAVA (VMAX)2.69cm2 Mitral Valve MV E Ujvmzfnh970.4cm/sMV E Peak Gr.140mmHg MV DECEL [id number] A Qbofvbrx025.5cm/s E/A Ratio1.3 Pulmonary Valve PV Peak Fdrhmjdu02.2cm/s Tricuspid Valve TR P. Nruugajb719sh/sRAP PCWWGKAI2vuTu TR Peak Gr.56ycGmPYNU91zjKu Pulmonary Vein S1 Xjxtmqzs17.7cm/sD2 Xtfewmpc00.9cm/s LEFT VENTRICLE The left ventricle is normal size. There is normal left ventricular wall thickness. The left ventricu lar systolic function is normal. The Ejection Fraction is 55-60%. There is normal LV segmental wall m otion. Transmitral Doppler flow pattern is Grade II-pseudonormal filling dynamics. RIGHT VENTRICLE The right ventricle is normal size. There is normal right ventricular wall thickness. The right ventr icular systolic function is normal. ATRIA The left atrium is mildly dilated. The right atrium size is normal. The interatrial septum is intact with no evidence for an atrial septal defect or patent foramen ovale as noted on 2-D or Doppler imagi ng. AORTIC VALVE The aortic valve is normal in structure and function. The aortic valve is trileaflet. Doppler and Col or Flow revealed no significant aortic regurgitation. There is no significant aortic valvular stenosi s. There is no aortic valvular vegetation. MITRAL VALVE The mitral valve is normal in structure and function. There is a prolapsed posterior mitral valve ivy flet. There is no mitral valve stenosis. Doppler and Color-flow revealed mild to moderate mitral regu rgitation. TRICUSPID VALVE The tricuspid valve is normal in structure and function. Doppler and Color Flow revealed trace tricus pid regurgitation. The PA pressure was estimated at 33 mmHg. There is no tricuspid valve prolapse or vegetation. There is no tricuspid valve stenosis. PULMONIC VALVE The pulmonary valve is normal in structure and function. Doppler and Color Flow revealed trace to mil d pulmonic valvular regurgitation. There is no pulmonic valvular stenosis. GREAT VESSELS The aortic root is normal in size. The ascending aorta is normal in size. The IVC is normal in size a nd collapses >50% with inspiration. PERICARDIAL EFFUSION There is no evidence of significant pericardial effusion. Critical Notification Critical Value: No <Conclusion> The left ventricular systolic function is normal. The Ejection Fraction is 55-60%. There is normal LV segmental wall motion. The left atrium is mildly dilated. Mild to moderate mitral regurgitation. Trace tricuspid regurgitation. The PA pressure was estimated at 33 mmHg. There is no evidence of significant pericardial effusion. Signed by : David Martines, Electronically Approved : 12/05/2018 11:21:30
== END | disposition home or self-care (01) ==
LOC: ECHO 09:01
PROVIDERS: ATTEND Internal Medicine
DX: I08.8 Other rheumatic multiple valve diseases (principal)
CPT/HCPCS: 93306

== ENCOUNTER 2018-12-16 06:58 | Outpatient (CLI) | payer BC ==
[2018-12-16] VITALS (7 sets, daily range): BP systolic 133–164; BP diastolic 47–63
[~2018-12-16] VITALS: Ht 190.5 cm; Wt 120.2 kg
[2018-12-16] MEDS ORDERED: LISI-334 PO (07:24)
[2018-12-16 07:41] LABS: CALCIUM 8.9 mg/dL (8.5-10.1); CREATININE 1.2 mg/dL (0.7-1.3); GFR 62.2; POTASSIUM 4.4 mmol/L (3.5-5.1)
[2018-12-16 07:42] LABS: BASO % 1 % (0-3); EOS % 1 % (0-3); HEMATOCRIT 32.2 % (39.0-53.0); LYMPH # 1.1 x10^3/uL (1.0-4.8); LYMPH % 23 % (24-48); MEAN CORPUSCULAR HEMOGLOBIN 29 pg (25-35); MEAN CORPUSCULAR HGB CONC 34 g/dL (31-37); MEAN CORPUSCULAR VOLUME 87 fL (79-100); MONO # 0.6 x10^3/uL (0.0-1.1); MONO % 13 % (0-9); NEUT % 63 % (31-73); PLATELET COUNT 252 x10^3/uL (140-400); RED BLOOD COUNT 3.72 x10^6/uL (4.30-5.70); RED CELL DISTRIBUTION WIDTH 19.8 % (11.5-14.5); WHITE BLOOD COUNT 4.8 x10^3/uL (4.0-11.0)
[2018-12-16 08:01] LABS: PROTHROMBIN TIME PATIENT 12.4 SEC (11.7-14.0)
[2018-12-16] MEDS ORDERED: LIDOCAINE 1%/EPI 1:100,000 20 ML VIAL. ONE (08:13)
[2018-12-16] MEDS ORDERED: MIDAZOLAM HCL/PF 2 MG/2 ML VIAL. ONE (08:32)
[2018-12-16] MEDS ORDERED: MIDAZOLAM HCL/PF 2 MG/2 ML VIAL. IV ONE (09:00)
[2018-12-16] MEDS ORDERED: LIDOCAINE 1%/EPI 1:100,000 20 ML VIAL. INJ ONE (09:00)
--- NOTE | 2018-12-16 09:25 | PDOC ---
BRIEF OPERATIVE NOTE Pre-Op Diagnosis Lung cancer Post-Op Diagnosis same Procedure Performed Port removal Surgeon Leslie Anesthesia Type: Conscious Sedation Findings Port removal Complications None RENATO MORALES MD Dec 16, 2018 09:25
--- NOTE | 2018-12-16 09:25 | PDOC ---
MODERATE SEDATION ASSESSMENT RISKS/ALTERNATIVES Risks/Alternatives Risks and alternatives of this type of sedation and procedure discussed with: RISK/ALTERNATIVES: Patient H & P ON CHART H & P H & P on chart and reviewed for co-morbid conditions and appropriate labs. H&P ON CHART: Yes STATUS PREG STATUS ASSESSED: Yes MEDS/ALLERGIES REVIEWED Meds/Allergies Reviewed Medications and Allergies including time and route of recently administered narcotics and sedatives. MEDS/ALLERGIES REVIEWED: Yes ASA RATING ASA RATING: II AIRWAY ASSESSMENT Airway Assessment Airway patency, oral function limitations, presence of caps, crowns, dentures, partials, and ability to extend neck assessed. AIRWAY ASSESSMENT: Yes MALLAMPATI SCORE MALLAMPATI SCORE: II PRE-SEDATION ASSESSMENT PRE-SEDATION ASSESSMENT: Yes RENATO MORALES MD Dec 16, 2018 09:24
--- NOTE | 2018-12-16 09:27 | PDOC1 ---
History and Physical Date of Procedure Date of Admission History of Present Illness Reason for Visit Lung cancer Past Medical History Past Medical History see nursing assessment Current Medications Current Medications Current Medications Lidocaine/ Epinephrine (LIDOCAINE 1%-EPI 1:100,000 Multi-Dose) 20 ml STK-MED ONCE .ROUTE ; Start 12/16/18 at 08:13; Stop 12/16/18 at 08:14; Status DC Midazolam HCl (Versed) 2 mg STK-MED ONCE .ROUTE ; Start 12/16/18 at 08:32; Stop 12/16/18 at 08:33; Status DC Midazolam HCl (Versed) 1 mg 1X ONCE IV Last administered on 12/16/18at 09:01; Start 12/16/18 at 09:00; Stop 12/16/18 at 09:01; Status DC Lidocaine/ Epinephrine (LIDOCAINE 1%-EPI 1:100,000 Multi-Dose) 6 ml 1X ONCE INJ Last administered on 12/16/18at 09:01; Start 12/16/18 at 09:00; Stop 12/16/18 at 09:01; Status DC Active Scripts Active Reported Lisinopril 20 Mg Tablet 1 Tab PO DAILY Eliquis (Apixaban) 5 Mg Tablet 5 Mg PO BID resume sunday morning 07/03/18 Amlodipine Besylate 10 Mg Tablet 10 Mg PO DAILY Allopurinol 100 Mg Tablet 100 Mg PO BID Allergies Allergies: Coded Allergies: fentanyl (Verified Adverse Reaction, Intermediate, 08/08/18) Respiratory depression. Physical Exam Vital Signs Vital Signs Date Time Temp Pulse Resp B/P (MAP) Pulse Ox O2 Delivery O2 Flow Rate FiO2 12/16/18 09:15 62 15 99 Room Air 12/16/18 09:04 2.0 12/16/18 07:30 98.0 134/61 (85) 98.0 Assessment Assessment Lung cancer, chemo completed Plan Plan Port removal RENATO MORALES MD Dec 16, 2018 09:26
--- NOTE | 2018-12-16 11:01 | NUR ---
pt A&O x3. denies any pain, nausea or dizziness. tolerating po well. VSS. ambulated to Br w/o problem. rt chest dressing C,D&I. d/c instructions reviewed. out to vehicle per w/c- to drive him home.
--- NOTE | 2018-12-17 09:16 | RAD ---
Procedure: Port-A-Cath removal with fluoroscopy Clinical Indication: 58-year-old no longer requiring chemotherapy. Sedation: Anxiolysis only was provided along with local anesthesia. Antibiotics: None Exposure: Kerma-Area Product: 1 Gycm2 Sterility: All elements of maximal sterile barrier technique including the use of a cap, mask, sterile gown, sterile gloves, large sterile sheet, appropriate hand hygiene, and 2% chlorhexidine for cutaneous antisepsis (or acceptable alternative antiseptic per current guidelines) were followed for this procedure. If ultrasound guidance was utilized, sterile ultrasound techniques were followed including use of a sterile probe cover. Consent: The procedure was explained in its entirety to the patient or the patients designated business services representative by a member of the treatment team, including a discussion of the risks, benefits and commonly accepted alternatives to the procedure, as well as the expected consequences of no therapy whatsoever. Discussion of the risks included, but was not limited to, those that are most frequent and those that are rare but possibly severe or life-threatening, as well as the possibility of unforeseen complications. Technique and Findings: Following informed consent, the patient was prepped and draped in usual sterile fashion. Preliminary fluoroscopic spot view revealed an intact Port-A-Cath. 1% lidocaine was used to achieve local anesthesia over the existing port site. A small dermatotomy was made. The port was then freed from the pocket and removed in its entirety. The pocket was copiously irrigated with vancomycin impregnated sterile saline then closed with deep interrupted and running subcuticular 4-0 Vicryl suture. Final fluoroscopic image demonstrated no residual radiopaque foreign body. Complications: No immediate Impression: 1. Port removal as described.
== END 2018-12-16 11:05 | disposition home or self-care (01) ==
LOC: INTRAD 06:58
PROVIDERS: ATTEND Internal Medicine Hematology & Oncology
DX: Z45.2 Encounter for adjustment and management of vascular access device (principal); C34.92 Malignant neoplasm of unspecified part of left bronchus or lung; Z79.01 Long term (current) use of anticoagulants
CPT/HCPCS: 36415; 36590; 77001; 80048; 85025; 85610; 99152; J2250; J3490

== ENCOUNTER → 2019-01-24 | Outpatient (CLI) | payer BC ==
[2018-12-16 10:30] VITALS: BP 136/47
[~2019-01-24] MED LIST changes: +LISI-334 PO; +LISI1TAB19 PO; -LISI1TAB5 PO
--- NOTE | 2019-01-24 17:14 | RAD ---
Examination: CT CHEST WO CONTRAST History: Pleural effusion, lung cancer Comparison/Correlation: 09/11/[address] chest without contrast Findings: The axial images of the chest were obtained without contrast. Sagittal and coronal reformatted images were provided. Small left basilar pleural effusion is present. Minimal right costophrenic sulcus pleural fluid noted. Small groundglass infiltrate involving the posterior left mid thoracic level measuring 1.5 cm x 1.2 cm x 1.3 cm is evident in the interval. No solid nodule or new enlarged lymph node. Left lower lobectomy is evident. Partially visualized upper abdomen is unremarkable. Small hiatal hernia is present. Left thoracotomy findings noted. Impression: Left basilar pleural effusion is again evident but smaller in size compared to the prior exam. No pneumothorax component. Interval development of a small focus of groundglass infiltrate in the posterior left mid thoracic level. Correlate with radiation therapy history. Consider interval follow-up to assess stability or resolution in 6-12 months. Small hiatal hernia. PQRS Compliance Statement: One or more of the following individualized dose reduction techniques were utilized for this examination: 1. Automated exposure control 2. Adjustment of the mA and/or kV according to patient size 3. Use of iterative reconstruction technique Electronically signed by: Abdoul Lorenz MD (01/24/2019 5:11 PM) [facility]
== END | disposition home or self-care (01) ==
LOC: CT 10:31
PROVIDERS: ATTEND Internal Medicine Critical Care Medicine
DX: J90 Pleural effusion, not elsewhere classified (principal); K44.9 Diaphragmatic hernia without obstruction or gangrene; R91.8 Other nonspecific abnormal finding of lung field
CPT/HCPCS: 71250

== ENCOUNTER → 2019-05-26 | Outpatient (CLI) | payer BC ==
[2018-12-16 10:30] VITALS: BP 136/47
[~2019-05-26] MED LIST changes: +CONTRAST GIVEN. MC PRN; +IOHEXOL 300 MG/ML 100ML VIAL. IV ONE
--- NOTE | 2019-05-26 12:39 | RAD ---
EXAM: CT Chest with IV contrast INDICATION: Adenosquamous carcinoma of the left lung. TECHNIQUE: Multi-detector row CT images were acquired from the thoracic inlet through the upper abdomen with the use of IV contrast. Sagittal and coronal images were acquired from the transaxial data. All CT scans performed at this facility utilize dose optimization techniques as appropriate to the exam, including the following: Automated exposure control and adjustment of the mA and/or KV according to patient size (this includes techniques or standardized protocols for targeted exams where dose is indication/reason for exam). IV CONTRAST: Administered COMPARISON: Chest CT without IV contrast of 01/24/2019 FINDINGS: CARDIOVASCULAR: Unremarkable MEDIASTINUM & JOSE: No adenopathy or masses. LUNGS: Left upper lobectomy surgical changes redemonstrated with no developing soft tissue mass, suspicious for local recurrence. PLEURAL SPACE: No pleural effusions or pneumothorax. OSSEOUS & SOFT TISSUE: Unremarkable ABDOMEN: The visualized portions of the upper abdomen are unremarkable. IMPRESSION: Stable postoperative changes from left upper lobectomy with no evidence of local disease recurrence. No evidence of metastatic disease in the included field of view. Electronically signed by: Alma Castillo MD (05/26/2019 12:37 PM) [facility]
== END | disposition home or self-care (01) ==
LOC: CT 07:37
PROVIDERS: ATTEND Internal Medicine Hematology & Oncology
DX: C34.92 Malignant neoplasm of unspecified part of left bronchus or lung (principal); Z98.890 Other specified postprocedural states; Z87.891 Personal history of nicotine dependence
CPT/HCPCS: 71260; Q9967

== ENCOUNTER → 2020-02-13 | Outpatient (CLI) | payer BC ==
[2018-12-16 10:30] VITALS: BP 136/47
[~2020-02-13] MED LIST changes: +AMLO-187 PO; -AMLO10TA8 PO; -CONTRAST GIVEN. MC PRN; -IOHEXOL 300 MG/ML 100ML VIAL. IV ONE; -LISI1TAB19 PO; +LISI1TAB37 PO
--- NOTE | 2020-02-13 19:27 | CARD ---
MR#: [id number] Date of Study: 02/13/2020 Ordering Physician: DOMINGA YATES, Referring Physician: DOMINGA YATES, Tech: Svetlana Horn APPROVED REPORT EXAM: Two-dimensional and M-mode echocardiogram with Doppler and color Doppler. Other Information Quality : AverageHR: 75bpm Technically limited study due to body habitus. INDICATION Mitral Valve Disease RISK FACTORS Hypertension Hyperlipidemia Previous smoker and partial lung removed 2D DIMENSIONS RVDd3.8 (2.9-3.5cm)Left Atrium(2D)4.1 (1.6-4.0cm) IVSd1.0 (0.7-1.1cm)Aortic Root(2D)3.3 (2.0-3.7cm) LVDd5.6 (3.9-5.9cm)LVOT Diameter2.2 (1.8-2.4cm) PWd1.1 (0.7-1.1cm)LVDs3.5 (2.5-4.0cm) FS (%) 40.3 %SV132.1 ml LVEF(%)70.1 (>50%) Aortic Valve AoV Peak Jaycob.127.9cm/sAoV VTI28.3cm AO Peak GR.6.5mmHgLVOT Peak Jaycob.117.8cm/s LVOT VTI 29.65cmAO Mean GR.4mmHg HAYDEN (VMAX)2.33uk8EHE (VTI)3.91cm2 Mitral Valve MV E Xjgfmtfn113.1cm/sMV E Peak Gr.127mmHg MV DECEL RNEM812ayHP A Vijsgpxk63.6cm/s MV E Mean Gr.3mmHgMV LBT34ec E/A Ratio1.4MVA (PHT)4.63cm2 TDI E/Lateral E'10.7E/Medial E'10.2 Pulmonary Valve PV Peak Tqrcekfl95.8cm/sPV Peak Grad.4mmHg Tricuspid Valve TR P. Uubscnyk527zz/sRAP AEHZESXR1kgUi TR Peak Gr.07rtFeVUZQ28qpEd Pulmonary Vein S1 Jnyxdnfm19.6cm/sD2 Gjqajfot91.3cm/s PVa ztyjzrvx059iqax LEFT VENTRICLE The Left Ventricle is borderline dilated. There is normal left ventricular wall thickness. The left v entricular systolic function is normal and the ejection fraction is within normal range. The Ejection Fraction is 50-55%. There is normal LV segmental wall motion. The left ventricular diastolic functio n and filling is normal for age. RIGHT VENTRICLE The right ventricle is borderline dilated. The right ventricle is borderline hypertrophied. The right ventricular systolic function is normal. ATRIA The left atrium size is normal. The right atrium size is normal. The interatrial septum is intact wit h no evidence for an atrial septal defect or patent foramen ovale as noted on 2-D or Doppler imaging. AORTIC VALVE The aortic valve is thickened but opens well. Doppler and Color Flow revealed trace aortic regurgitat ion. There is no significant aortic valvular stenosis. Calculated aortic valve area is 4.13 cm2 with maximum pressure gradient of 8 mmHg and mean pressure gradient of 4 mmHg. MITRAL VALVE There is posterior leaflet prolapse. The posterior mitral valve leaflet is prolapsed. There is no patricia ral valve stenosis with an mean gradient of 2.9 mmHg. Doppler and Color-flow revealed mild mitral reg urgitation. TRICUSPID VALVE The tricuspid valve is normal in structure and function. Doppler and Color Flow revealed trace to mil d tricuspid regurgitation with an estimated PAP of 52 mmHg. There is no tricuspid valve stenosis. PULMONIC VALVE The pulmonic valve is not well visualized. Doppler and Color Flow revealed trace pulmonic valvular re gurgitation. There is no pulmonic valvular stenosis. GREAT VESSELS The aortic root is normal in size. The ascending aorta is normal in size. The IVC is normal in size a nd collapses >50% with inspiration. PERICARDIAL EFFUSION There is no evidence of significant pericardial effusion. Critical Notification Critical Value: No <Conclusion> The left ventricular systolic function is normal and the ejection fraction is within normal range. Th e Ejection Fraction is 50-55%. There is normal LV segmental wall motion. There is posterior leaflet prolapse. Doppler and Color-flow revealed mild to moderate mitral regurgitation. Doppler and Color Flow revealed trace to mild tricuspid regurgitation with an estimated PAP of 52 mmH g. Signed by : Atif López, Electronically Approved : 02/13/2020 19:27:17
== END ==
LOC: ECHO 07:55
PROVIDERS: ATTEND Internal Medicine Cardiovascular Disease
DX: I08.1 Rheumatic disorders of both mitral and tricuspid valves (principal)
CPT/HCPCS: 93306

== ENCOUNTER → 2020-03-01 | Outpatient (CLI) | payer BC ==
[2018-12-16 10:30] VITALS: BP 136/47
[~2020-03-01] MED LIST changes: +CONTRAST GIVEN. MC PRN; +IOHEXOL 300 MG/ML 100ML VIAL. IV ONE
--- NOTE | 2020-03-01 16:33 | RAD ---
Examination: CT chest with IV contrast HISTORY: History of left lobe lung cancer COMPARISON: 05/26/2019 TECHNIQUE: Axial CT images of the chest with IV contrast. Coronal and sagittal reformats are performed Exposure: One or more of the following individualized dose reduction techniques were utilized for this examination: 1. Automated exposure control 2. Adjustment of the mA and/or kV according to patient size 3. Use of iterative reconstruction technique. Findings: The visualized thyroid gland grossly appears unremarkable. Central airways are patent. Mild cardiomegaly. Coronary artery calcifications. Small hiatal hernia. Changes of left upper lobectomy surgical changes again identified. Minimal right lung base atelectasis. The adrenals grossly appears unremarkable. Mild degenerative changes thoracic spine. Hemangioma changes identified in the T7 vertebral body similar to prior exam. IMPRESSION: 1. Unchanged postoperative changes left upper lobectomy with no evidence of recurrence or metastasis. Electronically signed by: Abilio Silveira MD (03/01/2020 4:30 PM) [id number]
== END ==
LOC: CT 09:21
PROVIDERS: ATTEND Internal Medicine
DX: C34.12 Malignant neoplasm of upper lobe, left bronchus or lung (principal); K44.9 Diaphragmatic hernia without obstruction or gangrene; I25.10 Atherosclerotic heart disease of native coronary artery without angina pectoris; I51.7 Cardiomegaly; M47.814 Spondylosis without myelopathy or radiculopathy, thoracic region; Z90.2 Acquired absence of lung [part of]
CPT/HCPCS: 71260; Q9967

== ENCOUNTER → 2020-09-06 | Outpatient (CLI) | payer BC ==
[2018-12-16 10:30] VITALS: BP 136/47
[~2020-09-06] MED LIST changes: +IOHEXOL 240 MG/ML 50ML VIAL. PO ONE; -LISI-334 PO; +LISI20TA18 PO; -POLY17PO28 PO; +POLY17PO52 PO
--- NOTE | 2020-09-06 10:33 | KCIC ---
EXAM: Chest, abdomen and pelvis CT with intravenous contrast. HISTORY: Lung cancer. TECHNIQUE: Computed tomographic images of the chest, abdomen and pelvis were obtained following the a dministration of intravenous contrast. Multiplanar reformatting was performed. *One or more of the following individualized dose reduction techniques were utilized for this examina tion: 1. Automated exposure control. 2. Adjustment of the mA and/or kV according to patient size. 3. Use of iterative reconstruction technique. COMPARISON: 03/01/2020 and 08/07/2018. FINDINGS: Chest: There are stable findings consistent with partial left lung resection. There is asso ciated left superior paranasal architectural distortion, suprahilar clips and a thoracotomy defect. T here is no infiltrate, pleural effusion or pneumothorax. There is minimal posterior dependent and bas ilar atelectasis. There is no suspicious pulmonary nodule. The heart is normal in size. The aorta is normal in caliber. There is no pathologically enlarged lymph node. There is a tiny hiatal hernia. Abdomen and pelvis: There are 2.5 cm and 2.7 cm ill-defined hyperenhancing lesions within the right h epatic lobe. The gallbladder, pancreas, spleen, adrenal glands and kidneys are unremarkable. There is no appendicitis. There is no bowel obstruction. There is no abnormal bowel wall thickening. The blad lauri is unremarkable. There is aortic and aortic branch vessel atherosclerosis. There is no lymphadeno sade. There is degenerative change involving the lumbar spine, primarily at L4-L5. There is internal fixation of the proximal right femur. IMPRESSION: 1. Stable findings consistent with partial left lung resection. There is no evidence of recurrent mal ignancy within the thorax. 2. 2.5 cm and 2.7 cm ill-defined hyperenhancing lesions within the right hepatic lobe. These may be o bscured on prior exams due to the absence of contrast. The differential includes hemangiomas as well as shunt phenomenon. However, given a history of primary malignancy, further evaluation with a liver protocol CT or MRI is recommended to confirm benignity. Electronically signed by: Kelly Diez MD (09/06/2020 10:30 AM) [id number]
== END ==
LOC: KCIC CT 08:18
PROVIDERS: ATTEND Internal Medicine
DX: C34.92 Malignant neoplasm of unspecified part of left bronchus or lung (principal); K76.89 Other specified diseases of liver; D18.09 Hemangioma of other sites; Z72.0 Tobacco use
CPT/HCPCS: 71260; 74177; Q9966; Q9967

== ENCOUNTER → 2020-09-17 | Outpatient (CLI) | payer BC ==
[2018-12-16 10:30] VITALS: BP 136/47
[~2020-09-17] MED LIST changes: -CONTRAST GIVEN. MC PRN; -IOHEXOL 240 MG/ML 50ML VIAL. PO ONE; -IOHEXOL 300 MG/ML 100ML VIAL. IV ONE
[2020-09-17] MEDS: GADOTERATE 7.5 MMOL/15ML VIAL. IVP ONE (12:34)
--- NOTE | 2020-09-17 13:57 | KCIC ---
EXAMINATION: MRI and MRCP abdomen without and with IV contrast. INDICATION: Right hepatic lobe lesion. History of lung cancer. Further evaluation. TECHNIQUE: Multiplanar multisequence MRI and MRCP of the abdomen performed without and with IV contra st. COMPARISON: CT dated 09/06/2020 and multiple priors. FINDINGS: Normal morphology and size of the liver with homogeneous enhancement. No steatosis or iron deposition . There is 2.8 x 2.0 cm T2 hyperintense lesion in hepatic segment 8 demonstrates peripheral discontin uous nodular enhancement with progressive fill-in, compatible with hemangioma. Additional subcentimet er T2 hyperintense lesion in hepatic segment 6 demonstrates venous enhancement with persistent on del ayed images (series 15 image 21). Unremarkable gallbladder. No biliary ductal dilation. Normal spleen. Mildly atrophic pancreas with fa t infiltration. There is a 2 mm cystic focus in the pancreatic head (series 8 image 14). No adrenal n odules. Normal symmetric enhancement of the kidneys with no hydronephrosis. Nonspecific bilateral per inephric fat stranding. No abdominal lymphadenopathy by size criteria. Normal caliber abdominal aorta . Mesenteric arteries and portal vein are patent. No ascites. No suspicious osseous lesion. Unremarka ble visualized lung bases. IMPRESSION: 1. Hepatic segment VIII, 2.8 cm hemangioma corresponds to CT findings. 2. Additional, subcentimeter hemangioma in hepatic segment . 3. No suspicious focal liver lesion or metastatic disease to the abdomen. Electronically signed by: Magalys Keen MD (09/17/2020 1:55 PM) [id number]
== END ==
LOC: KCIC MRI 10:43
PROVIDERS: ATTEND Internal Medicine Hematology & Oncology
DX: C34.92 Malignant neoplasm of unspecified part of left bronchus or lung (principal)
CPT/HCPCS: 74183; A9575

== ENCOUNTER → 2021-03-21 | Outpatient (CLI) | payer BC, OTHER ==
[2018-12-16 10:30] VITALS: BP 136/47
[~2021-03-21] MED LIST changes: +IOHEXOL 300 MG/ML 100ML VIAL. IV ONE
--- NOTE | 2021-03-21 10:34 | RAD ---
CT chest with contrast: History: Adenosquamous carcinoma of the left lung Axial helical images of the chest were obtained after the administration of 75 cc of Omni 300 IV cont rast. Comparison: September 06, 2020 Findings: There has been prior resection of a 1.3 cm segment of the posterior lateral left sixth rib in the mid left scapula seen previously. There has been removal of at least a portion of the left upper lobe. The lungs and pleural margins are clear. The thoracic aorta appears normal. There is no mediastinal l ymphadenopathy or hematoma. There is no hilar lymphadenopathy. There is a hemangioma in the right lobe of liver seen previously. Impression: Postsurgical changes. No acute findings. End Impression PQRS Compliance Statement: One or more of the following individualized dose reduction techniques were utilized for this examinat ion: 1. Automated exposure control 2. Adjustment of the mA and/or kV according to patient size 3. Use of iterative reconstruction technique Electronically signed by: Enrique Krueger III, MD (03/21/2021 10:32 AM) [facility]
== END ==
LOC: CT 08:28
PROVIDERS: ATTEND Internal Medicine Hematology & Oncology
DX: C34.92 Malignant neoplasm of unspecified part of left bronchus or lung (principal); Z98.890 Other specified postprocedural states
CPT/HCPCS: 71260; Q9967